=== PATIENT | female | born 1945 | race Caucasian/White ===

== ENCOUNTER 2022-05-17 11:21 | Emergency (ER) | payer MEDICARE, SELFPAY ==
[2022-05-17 11:23] VITALS: BP 124/73; PULSE 77; RESP 16; TEMP 36.6; O2SAT 95; BMI 20.9
--- NOTE | 2022-05-17 11:38 | EKG12_ITS ---
Test Reason : Alt loc Blood Pressure : / mmHG Vent. Rate : 069 BPM Atrial Rate : 069 BPM P-R Int : 116 ms QRS Dur : 060 ms QT Int : 410 ms P-R-T Axes : 082 -10 243 degrees QTc Int : 439 ms Normal sinus rhythm ST & T wave abnormality, consider inferolateral ischemia Abnormal ECG Confirmed by LISA LYNN, ALEXY ([id number]), assistant editor JUAQUIN COLÓN ([id number]) on 05/18/2022 11:07:17 AM Referred By: Katerine Confirmed By:ALEXY GONZALEZ MD
--- NOTE | 2022-05-17 11:38 | CT_ITS ---
STUDY: CT BRAIN WITHOUT CONTRAST REASON FOR EXAM: Female, 76 years old. Mental status change. History of Parkinson''s. RADIATION DOSAGE (If Supplied By Facility): CTDIvol = ( 44.99 ) mGy, DLP = ( 762.36 ) mGycm TECHNIQUE: Transaxial CT imaging of the brain was performed without administration of intravenous contrast material. Individualized dose optimization techniques were used for this CT. COMPARISON: No relevant priors. FINDINGS: Normal soft tissue structures. Normal calvarium. There is mild cerebral atrophy with widening of the extra-axial spaces and ventricular dilatation. There are areas of decreased attenuation within the white matter tracts of the supratentorial brain, consistent with microvascular disease changes. Metallic electrodes are seen in the thalami bilaterally. Normal brainstem. Normal cerebellum. There is no intracranial hemorrhage. There are no findings of an acute ischemic infarction. Atherosclerotic calcification of the vertebral arteries and cavernous portions of the internal carotid arteries bilaterally. Normal visualized paranasal sinuses. CT/Brain/Head without Contrast IMPRESSION: Chronic involutional changes of the brain. Metallic electrodes are seen within the thalami bilaterally. Electronically Signed: Lorne Castellon MD at 12:33 EDT ,
--- NOTE | 2022-05-17 11:40 | EDS_ITS ---
HPI History of Present Illness Chief Complaint: Alt LOC Detail of Chief Complaint: Altered level of consciousness prior to arrival in the department Informant: patient and spouse/S.O. Narrative Narrative: Patient presents to the emergency department via EMS from home. Patient woke up this morning and helped her get dressed after going to the bathroom. He brought her downstairs and she did not want to eat or take her medications because she felt nauseated and felt like it would come back up. Patient then fell asleep in a chair. attempted to wake the patient up later and could not wake her up. Patient apparently would attempt to open her eyes and then would just mumble. Patient's talked to their daughter who is an RN and who recommended that patient be evaluated in the emergency department. Patient has history of Parkinson's and history of confusion. Patient has history of frequent falls. Patient has been complaining of abdominal pain for several weeks. Patient currently states that she has a full bladder and has some abdominal discomfort related to that. She denies dysuria. Patient denies fevers. She denies chest or head pain. Prior similar symptoms: No PFSH PFS Medical History (Updated 05/17/22 @ 13:[address] Becky Cai, DO) Parkinson disease Home Medications atorvastatin 80 mg tablet 80 mg PO DAILY 05/17/22 [History Last Taken Unknown] fluoxetine 20 mg tablet 20 mg PO DAILY 05/17/22 [History Last Taken Unknown] levothyroxine 50 mcg tablet 50 mcg PO DAILY 05/17/22 [History Last Taken Unknown] pantoprazole 20 mg tablet,delayed release 20 mg PO DAILY 05/17/22 [History Last Taken Unknown] rasagiline 1 mg tablet 1 mg PO DAILY 05/17/22 [History Last Taken Unknown] Allergy/AdvReac Type Severity Reaction Status Date / Time Unable to Assess Allergy Verified 05/17/22 12:20 Social History Smoking Status: Never smoker ROS ROS ED Review of Systems ROS Unobtainable: other Constitutional Constitutional ED: Reports lethargy; Denies chills, fever(s), sweats or weight loss Eyes Eyes: Denies blurry vision, change in vision or diplopia ENT ENT ED: Denies rhinorrhea or sore throat Cardiovascular Cardiovascular: Reports chest pain and racing heartbeat; Denies orthopnea Respiratory/Chest Respiratory/Chest: Reports dyspnea and dyspnea on exertion; Denies cough, orthopnea or sputum Gastrointestinal Gastrointestinal: Denies abdominal pain, diarrhea, nausea or vomiting Genitourinary Genitourinary ED: Denies dysuria, hematuria or urinary frequency Musculoskeletal Musculoskeletal: Denies arthralgias, back pain, myalgias or neck pain Integumentary Denies abscess, Abrasions or rash Neurologic Neurologic: Reports other Details: Confusion/mental status change ; Denies headache(s) or weakness Psychiatric Psychiatric: Denies anxiety, depression or suicidal thoughts Endocrine Endocrinology: Denies polydipsia, polyphagia or polyuria Hematologic/Lymphatic Hematologic/Lymphatic: Denies easy bleeding, easy bruising or lymphadenopathy Allergic/Immunologic Allergic/Immunologic ED: Denies mouth swelling, tongue swelling or urticaria EXAM Physical Exam Const Vital Signs: 05/17/22 11:23 Temperature 98 F Temperature Source Temporal Pulse Rate 77 Respiratory Rate 16 Blood Pressure 124/73 H Blood Pressure Mean 90 Pulse Ox 95 Oxygen Delivery Method Room Air Positive well nourished and well developed General Appearance ED: well developed and NAD HEENT Reports TM's clear and moist mucous membranes HEENT Narrative: No external evidence of trauma to the head. No facial droop. normocephalic and atraumatic; Negative for trauma or tenderness Tympanic Membrane ED: Yes TM's clear Eyes PERRL and EOMs intact bilaterally General Eye ED: Negative for pale conjunctiva or scleral icterus Neck no lymphadenopathy, supple and no JVD General: Negative for tenderness Chest Wall inspection of chest normal and palpation of chest normal Chest Narrative: Patient has a stimulator present in the right chest wall for her Parkinson's. Chest: Negative for tenderness Resp normal respiratory effort and clear to auscultation bilaterally Effort and Inspection: Negative for respiratory distress or pain with movement Auscultation: Negative for rhonchi, wheezes or diminished lung sounds Cardio regular rate, regular rhythm, S1 normal heart sound, S2 normal heart sound and no murmurs Peripheral Pulses: pulses 2+ throughout GI normal to inspection, nondistended, normoactive bowel sounds, soft to palpation, non-tender, non-distended and no masses Back/Spine no CVA tenderness and no thoracic nor lumbar tenderness Extremity normal to inspection General Extremety ED: Negative for edema General Extremity: Negative for edema Neuro oriented x3, CN's II-XII intact bilaterally, no sensory deficits noted and gait normal Neuro Narrative: Patient is alert to person and place. Patient has some recollection of hearing the attempting speak with her but states she was just having a hard time answering. No focal deficits noted on exam. She does have some slight subtle weakness to the left lower extremity which is chronic per and patient. Sensorium / Orientation: awake, alert, oriented to person, oriented to place and oriented to time Motor Exam: strength 5/5 throughout and strength abnormal Psych mental status grossly normal Skin no rashes or lesions noted and no wounds MDM MDM MDM Narrative Medical decision making narrative: IV line established on arrival. Urinalysis obtained was unremarkable. Lab work unremarkable. CT scan of the brain without contrast showed nothing acute. CT scan of the abdomen pelvis showed diverticulosis otherwise nothing acute. At this point patient is back to her baseline. Etiology of her symptoms unclear but now resolved. Patient advised to follow-up with primary care physician in 3 to 5 days. Advised to bring her back if symptoms should recur or condition should change in any way. Lab Data Attestation: I reviewed the patient's lab results. Labs: Laboratory Results - last 24 hr 05/17/22 05/17/22 05/17/22 11:29 11:29 11:45 WBC 6.9 RBC 4.41 Hgb 13.6 Hct 39.9 MCV 90.5 MCH 30.8 MCHC 34.1 RDW Std Deviation 43.1 RDW Coeff of Su 13.1 Plt Count 327 MPV 8.8 Immature Gran % (Auto) 0.400 Neut % (Auto) 64.4 Lymph % (Auto) 23.3 [place] % (Auto) 8.7 Eos % (Auto) 2.6 Baso % (Auto) 0.6 Absolute Neuts (auto) 4.4 Absolute Lymphs (auto) 1.60 Nucleated RBC % 0 Sodium 139 Potassium 3.9 Chloride 104 Carbon Dioxide 30.0 Anion Gap 5 BUN 11 Creatinine 0.52 L Estim Creat Clear Calc 34.38 Est GFR (MDRD) Af Amer 148 Est GFR (MDRD) Non-Af 122 BUN/Creatinine Ratio 21.2 H Glucose 117 H Calcium 8.2 L Troponin I High Sens 4 Urine Color Yellow Urine Clarity Sl. Cloudy Urine pH 8.0 Ur Specific [place] 1.010 Urine Protein Negative Urine Glucose (UA) Normal Urine Ketones Negative Urine Occult Blood Negative Urine Nitrite Negative Urine Bilirubin Negative Urine Urobilinogen Normal Ur Leukocyte Esterase 25 H Urine RBC 0 SEEN Urine WBC 0-5 SEEN Ur Squamous Epith Cells 0-5 SEEN Urine Bacteria 0 SEEN Urine Mucus 0 SEEN Radiography Diagnostic Testing: Clinical Impression(s) from Imaging Studies Brain CT 05/17/22 11:38 IMPRESSION: Chronic involutional changes of the brain. Metallic electrodes are seen within the thalami bilaterally. Electronically Signed: Lorne Castellon MD at 12:33 EDT , Abdomen/Pelvis CT 05/17/22 11:40 IMPRESSION: Sigmoid diverticulosis. 5.5 mm nonobstructive calculus in the mid lower pole calyx of the right kidney. Findings suggestive of scarring at both lung bases. Electronically Signed: Lorne Castellon MD at 12:26 EDT , EKG Initial EKG: Attestation: I personally reviewed and interpreted this EKG as follows: Comments: Sinus rhythm with a ventricular rate of 69 bpm with no acute ST segment changes noted. Discharge Plan Triage Chief Complaint: Alt LOC ED Provider: Becky Cai Dx/Rx/DC Orders Clinical Impression: Altered mental status Instructions: ED ALOC Prescriptions: No Action atorvastatin 80 mg Tablet 80 mg PO DAILY pantoprazole 20 mg Tablet,Delayed Release (Dr/Ec) 20 mg PO DAILY levothyroxine 50 mcg Tablet 50 mcg PO DAILY fluoxetine 20 mg Tablet 20 mg PO DAILY rasagiline 1 mg Tablet 1 mg PO DAILY Primary Care Provider: DEN ALEXANDER Referrals: [facility],Out of [NON-STAFF] - 3-5 Days Disposition Disposition: Home, Self Care
--- NOTE | 2022-05-17 11:40 | CT_ITS ---
STUDY: CT ABDOMEN AND PELVIS WITHOUT CONTRAST REASON FOR EXAM: Female, 76 years old. Abdominal pain RADIATION DOSAGE (If Supplied By Facility): CTDIvol = ( 6.45 ) mGy, DLP = ( 307.84 ) mGycm TECHNIQUE: Transaxial images were obtained from the dome of the diaphragm to the symphysis pubis without oral contrast, and without intravenous contrast. Sagittal and coronal images were reconstructed. Individualized dose optimization techniques were used for this CT. COMPARISON: None. FINDINGS: Increased interstitial markings at the lung bases with areas of confluence suggestive of bibasilar scarring. The visualized portions of the heart are within normal limits. Normal liver. Normal gallbladder and extrahepatic biliary system. Normal spleen. Normal pancreas. Normal bilateral adrenal glands. There is a 5.5 mm nonobstructive calculus in the mid lower pole calyx of the right kidney. Normal left kidney. There is a small hiatal hernia. Normal small intestine. There are multiple colonic diverticula consistent with diverticulosis. The appendix is visualized and appears normal. There is scattered atherosclerotic calcification of the abdominal aorta, without a demonstrated aneurysm. Normal inferior vena cava. Normal retroperitoneum. Normal urinary bladder. Calcified fibroid uterus. Normal abdominal wall. There are diffuse degenerative changes of the visualized lumbar spine. Loss of height of the L5 vertebra. CT/Abdomen/Pelvis without Cont IMPRESSION: Sigmoid diverticulosis. 5.5 mm nonobstructive calculus in the mid lower pole calyx of the right kidney. Findings suggestive of scarring at both lung bases. Electronically Signed: Lorne Castellon MD at 12:26 EDT ,
[2022-05-17 11:50] LABS: Bacteria 0 SEEN /hpf (None Seen); Mucous, Urine 0 SEEN /hpf (<or=2+); Red Blood Cells-Urine 0 SEEN /hpf (0-5)
[2022-05-17 11:57] LABS: Absolute Neutrophil Count 4.4 X10^3/uL (2.0-7.7); Basophil# 0.04 X10^3/uL; Basophil% 0.6 % (0-1); Eosinophil# 0.18 X10^3/uL; Eosinophils% 2.6 % (0-5); Hematocrit 39.9 % (37-47); Hemoglobin 13.6 g/dL (12.0-15.0); Lymphocyte % 23.3 % (19-41); Mean Corp Hgb Conc 34.1 g/dL (32-36); Mean Corpuscular Hgb 30.8 pg (27.0-32.0); Mean Corpuscular Volume 90.5 fL (81-99); Mean Platelet Vol. 8.8 fl (6.2-12.0); Monocyte% 8.7 % (0-10); NRBC Flagged by Analyzer 0 % (0-5); Neutrophil # 4.43 X10^3/uL (2.7-7.7); Neutrophil % 64.4 % (47-70); Platelet Count 327 K/mm3 (150-450); RBC Distribution Width CV 13.1 % (11.6-14.6); RBC Distribution Width SD 43.1 fl (35.1-43.9); Red Blood Count 4.41 M/mm3 (4.2-5.4); White Blood Count 6.9 K/mm3 (4.4-11.0)
[2022-05-17 11:59] LABS: Color, Urine Yellow (Yellow); Glucose, Dipstick Normal (Normal); Ketone-Dipstick Negative (Negative); Leukocyte Esterase-Dipstick 25 /ul (Negative); Nitrite-Dipstick Negative (Negative); Occult Blood-Urine Negative /ul (Negative); Protein-Dipstick Negative (Negative); Urine Bilirubin Dipstick Negative (Negative); Urine Clarity Sl. Cloudy (Clear); Urine Urobilinogen Normal (Normal)
[2022-05-17 12:12] LABS: Anion Gap 5 (5-15); BUN 11 mg/dL (7-18); BUN/Creat Ratio 21.2 RATIO (10-20); Calcium,Total 8.2 mg/dL (8.5-10.1); Chloride 104 mmol/L (98-107); Creatinine, Serum 0.52 mg/dL (0.55-1.02); EST Glomerular Filtration Rate 122 mL/min (>60); Est Glom Filt Rate - Afr Amer 148 mL/min (>60); Estimated Creatinine Clearance 34.38 ml/min; Glucose 117 mg/dL (74-106); Potassium 3.9 mmol/L (3.5-5.1); Sodium Level 139 mmol/L (136-145); Troponin-I HS 4 pg/mL (3.0-54.0)
[2022-05-17 12:15] LABS: Squamous Epithelial Cells - UA 0-5 SEEN /hpf (5-10); White Blood Cells 0-5 SEEN /hpf (0-5)
[2022-05-17] MEDS: 0.9% Normal Saline 1,000 ML 150 ML IV (12:21)
[2022-05-17 13:15] VITALS: BP 127/58; PULSE 73; RESP 16; O2SAT 96
== END 2022-05-17 13:17 | disposition home or self-care (01) ==
PROVIDERS: Emergency Provider Emergency Medicine; Visit Provider Emergency Medicine
DX: R41.82 Altered mental status, unspecified (principal); Z79.899 Other long term (current) drug therapy
CPT/HCPCS: 70450; 74176; 80048; 81001; 84484; 85025; 93005; 99285; A4216

== ENCOUNTER 2022-06-07 14:10 | Observation (INO) | payer MEDICARE, SELFPAY ==
[2022-06-07] VITALS (7 sets, daily range): BP systolic 109–162; BP diastolic 61–86; PULSE 43–85; RESP 16–18; TEMP 36.6–36.8; O2SAT 94–100; BMI 20.7
--- NOTE | 2022-06-07 14:13 | CT_ITS ---
INDICATION: injury. fall. patient has parkinson''s with brain stimulators EXAMINATION: CT BRAIN - CT Head or Brain W/O Contrast Injection TECHNIQUE: Multiple axial images were obtained of the head without intravenous contrast. A radiation dose optimization technique was used for this scan. IV Contrast dosage and agent: None. COMPARISON: None. FINDINGS: Deep brain stimulation leads visualized superimposed over bilateral thalami, no evidence of areas of low attenuation surrounding the leads. No evidence of parenchymal hemorrhages or contusions. No evidence of intra or extra-axial fluid collection is seen. Scattered areas of low attenuation visualized in the periventricular and subcortical white matter consistent with some mild chronic microvascular disease. Prominence of the ventricles and sulci visualized suggestive of chronic atrophic brain changes. The basilar cisterns are unremarkable for the patient''s age. No evidence of intracranial mass or mass effect, no evidence of midline shift is seen. Unremarkable aeration of the paranasal sinuses is seen. Unremarkable aeration of the mastoid air cells. No discrete lytic or blastic abnormalities. Both globes, extraocular muscles, optic nerves and retrobulbar fat appear unremarkable. CT/Brain/Head without Contrast IMPRESSION: No evidence of acute intracranial pathology is seen. Electronically Signed: Anselmo West MD at 15:09 EDT Reading Location ID and State: [facility] / [place] Tel , Service support ,
--- NOTE | 2022-06-07 14:14 | EX.ED.GENINJ ---
HPI History of Present Illness Chief Complaint: Fall Informant: patient Narrative Narrative: 76-year-old female presenting to the emergency room following a fall at home. Patient states she has Parkinson's and was rushing to the back window when she fell. She does not know what she hit but she notes she did not lose consciousness. She was able to ambulate at the scene. She notes a large laceration to the left frontal parietal scalp. Bleeding was controlled per EMS. Unknown last tetanus. She denies any neck pain but was placed in a c-collar by EMS. Patient denies any arm or leg symptoms. She does note that she has a DBS that was placed [address] Albert Qureshi at [facility] She is not on blood thinners. Tetanus Immunization: Unknown [facility] Medical History (Updated 06/07/22 @ 15:[address] Song Kim DO) GERD (gastroesophageal reflux disease) Hypercholesterolemia Parkinson disease Home Medications atorvastatin 80 mg tablet 80 mg PO DAILY 05/17/22 [History Last Taken Unknown] fluoxetine 20 mg tablet 40 mg PO DAILY 05/17/22 [History Last Taken Unknown] levothyroxine 50 mcg tablet 50 mcg PO DAILY 05/17/22 [History Last Taken Unknown] pantoprazole 20 mg tablet,delayed release 20 mg PO DAILY 05/17/22 [History Last Taken Unknown] rasagiline 1 mg tablet 1 mg PO DAILY 05/17/22 [History Last Taken Unknown] calcium 600 mg PO/SL DAILY 06/07/22 [History Last Taken Unknown] ibandronate 150 mg tablet tab PO 06/07/22 [History Last Taken Unknown] Allergy/AdvReac Type Severity Reaction Status Date / Time No Known Allergies Allergy Verified 06/07/22 14:24 Surgical History (Updated 06/07/22 @ 14:[address] Song Kim DO) S/P deep brain stimulator placement Social History (Updated 06/07/22 @ 14:[address] Song Kim DO) Smoking Status: Former smoker substance use type: does not use ROS ROS ED Constitutional Constitutional ED: Denies chills or weight loss Eyes Eyes: Denies change in vision or diplopia ENT ENT ED: Denies ear pain, rhinorrhea or sore throat Cardiovascular Cardiovascular: Denies chest pain, orthopnea, palpitations or racing heartbeat Respiratory/Chest Respiratory/Chest: Denies cough, dyspnea or orthopnea Gastrointestinal Gastrointestinal: Denies abdominal pain, diarrhea, nausea or vomiting Genitourinary Genitourinary ED: Denies dysuria, hematuria or urinary frequency Musculoskeletal Musculoskeletal: Denies arthralgias, myalgias or neck pain Integumentary Reports other Details: Scalp laceration ; Denies abscess or rash Neurologic Neurologic: Reports headache(s); Denies weakness Psychiatric Psychiatric: Denies anxiety, depression, suicidal ideation or suicidal thoughts Endocrine Endocrinology: Denies polydipsia, polyphagia or polyuria Allergic/Immunologic Allergic/Immunologic ED: Denies mouth swelling, tongue swelling or urticaria EXAM Physical Exam Const Vital Signs: 06/07/22 14:08 06/07/22 14:09 06/07/22 14:09 Temperature 98.2 F 98.2 F 98.2 F Temperature Source Oral Oral Pulse Rate 85 82 Respiratory Rate 18 18 Respiratory Effort Normal Non-Labored Respiratory Depth Normal Respiratory Pattern Normal Blood Pressure 121/61 H Blood Pressure Mean 81 Pulse Ox 94 95 Oxygen Delivery Method Room Air Room Air Room Air 06/07/22 15:54 06/07/22 17:37 06/07/22 21:43 Temperature 97.9 F Temperature Source Oral Pulse Rate 76 76 71 Respiratory Rate 18 18 18 Respiratory Effort Respiratory Depth Respiratory Pattern Blood Pressure 109/74 123/78 H 162/86 H Blood Pressure Mean 85 93 111 Pulse Ox 94 94 100 Oxygen Delivery Method Room Air Room Air Room Air 06/07/22 22:44 Temperature Temperature Source Pulse Rate 43 L Respiratory Rate 16 Respiratory Effort Respiratory Depth Respiratory Pattern Blood Pressure 145/82 H Blood Pressure Mean 103 Pulse Ox 94 Oxygen Delivery Method Room Air Positive well nourished and well developed General Appearance ED: well developed HEENT Reports normocephalic and moist mucous membranes HEENT Narrative: There is a 5 cm gaping full-thickness scalp laceration located in the left frontal parietal scalp. There is no active bleeding Eyes PERRL and EOMs intact bilaterally Neck full ROM, no lymphadenopathy, supple and no JVD Neck Narrative: No tenderness to palpation Resp normal respiratory effort and clear to auscultation bilaterally Cardio regular rate, regular rhythm and no murmurs GI normal to inspection, nondistended, normoactive bowel sounds and non-tender Palpation: soft Back/Spine no CVA tenderness and normal ROM Extremity normal to inspection General Extremety ED: Negative for edema General Extremity: Negative for edema Neuro oriented x3 and CN's II-XII intact bilaterally Sensorium / Orientation: alert Motor Exam: strength 5/5 throughout Psych mental status grossly normal Mood & Affect: Negative for depressed or tearful Skin no rashes or lesions noted and no wounds MDM MDM MDM Narrative Medical decision making narrative: Wound was locally anesthetized using 1% lidocaine washed with Shur-Clens and irrigated with sterile saline of approximately 250 cc. Wound was then explored. There is approximately 1 cm of DBM wire that I can see through the wound. Does not appear broken. Wound was washed with an additional 250 cc and then closed using seven 3-0 Ethilon sutures. Wound edges well approximated bleeding controlled. CT of the brain was obtained. This demonstrated no fracture or intracranial hemorrhage. I spoke with on-call neurosurgery at [facility]. They were comfortable with us sewing the wound and starting her on Ancef. They would like her transferred to [facility]. Patient is now been in the emergency room for 9 hours. I am told that she is first on the list to [facility]. Unfortunately I am also being told that she will not get a bed for the rest of the night. They do want her at [facility] because that is where her neurosurgeon is at. I spoke with our hospitalist who will admit the patient. We are going to continue antibiotics while we wait for bed assignment Lab Data Attestation: I reviewed the patient's lab results. Labs: Laboratory Results - last 24 hr 06/07/22 06/07/22 15:30 15:30 WBC 7.0 RBC 4.42 Hgb 13.5 Hct 40.3 MCV 91.2 MCH 30.5 MCHC 33.5 RDW Std Deviation 45.4 H RDW Coeff of Su 13.5 Plt Count 332 MPV 8.9 Immature Gran % (Auto) 0.300 Neut % (Auto) 65.0 Lymph % (Auto) 21.3 [place] % (Auto) 10.8 H Eos % (Auto) 2.0 Baso % (Auto) 0.6 Absolute Neuts (auto) 4.6 Absolute Lymphs (auto) 1.50 Nucleated RBC % 0 Sodium 137 Potassium 3.9 Chloride 106 Carbon Dioxide 29.0 Anion Gap 2 L BUN 14 Creatinine 0.57 Estim Creat Clear Calc 34.38 Est GFR (MDRD) Af Amer 133 Est GFR (MDRD) Non-Af 110 BUN/Creatinine Ratio 24.7 H Glucose 122 H Calcium 8.6 Radiography Diagnostic Testing: Clinical Impression(s) from Imaging Studies Brain CT 06/07/22 14:13 IMPRESSION: No evidence of acute intracranial pathology is seen. Electronically Signed: Anselmo West MD at 15:09 EDT Reading Location ID and State: [facility] / [place] Tel , Service support , Discharge Plan Triage Chief Complaint: Fall ED Provider: Song Kim Dx/Rx/DC Orders Clinical Impression: Laceration of scalp, Fall, Parkinson's disease, S/P deep brain stimulator placement, Mechanical complication of deep brain stimulator Prescriptions: No Action atorvastatin 80 mg Tablet 80 mg PO DAILY pantoprazole 20 mg Tablet,Delayed Release (Dr/Ec) 20 mg PO DAILY levothyroxine 50 mcg Tablet 50 mcg PO DAILY fluoxetine 20 mg Tablet 40 mg PO DAILY rasagiline 1 mg Tablet 1 mg PO DAILY ibandronate 150 mg tablet PO calcium 600 mg PO/SL DAILY Primary Care Provider: DEN ALEXANDER Referrals: DEN ALEXANDER [Other] Disposition Disposition: Acute Care Hospital Discharge Location: [facility]
[2022-06-07] MEDS: Diphth,Pertuss(Acell),Tet Vac 0.5 ML Vial IM (14:32)
[2022-06-07] MEDS: Lidocaine 1% (20 ml mdv) 20 ML Vial INFILT (15:00)
[2022-06-07] MEDS: Cefazolin 1 GM/50 ML BAG IV ×2 (15:34→22:40)
[2022-06-07 15:49] LABS: Absolute Neutrophil Count 4.6 X10^3/uL (2.0-7.7); Basophil# 0.04 X10^3/uL; Basophil% 0.6 % (0-1); Eosinophil# 0.14 X10^3/uL; Hematocrit 40.3 % (37-47); Hemoglobin 13.5 g/dL (12.0-15.0); Lymphocyte % 21.3 % (19-41); Mean Corp Hgb Conc 33.5 g/dL (32-36); Mean Corpuscular Hgb 30.5 pg (27.0-32.0); Mean Corpuscular Volume 91.2 fL (81-99); Mean Platelet Vol. 8.9 fl (6.2-12.0); Monocyte# 0.76 X10^3/uL; Monocyte% 10.8 % (0-10); NRBC Flagged by Analyzer 0 % (0-5); Neutrophil # 4.57 X10^3/uL (2.7-7.7); Platelet Count 332 K/mm3 (150-450); RBC Distribution Width CV 13.5 % (11.6-14.6); RBC Distribution Width SD 45.4 fl (35.1-43.9); Red Blood Count 4.42 M/mm3 (4.2-5.4)
[2022-06-07 16:06] LABS: Anion Gap 2 (5-15); BUN 14 mg/dL (7-18); BUN/Creat Ratio 24.7 RATIO (10-20); Calcium,Total 8.6 mg/dL (8.5-10.1); Chloride 106 mmol/L (98-107); Creatinine, Serum 0.57 mg/dL (0.55-1.02); EST Glomerular Filtration Rate 110 mL/min (>60); Est Glom Filt Rate - Afr Amer 133 mL/min (>60); Estimated Creatinine Clearance 34.38 ml/min; Glucose 122 mg/dL (74-106); Potassium 3.9 mmol/L (3.5-5.1); Sodium Level 137 mmol/L (136-145)
--- NOTE | 2022-06-07 23:08 | PCM.HP.STD ---
HPI - General General Date of Admission: 06/07/22 Date of Service: 06/07/22 Chief Complaint: Fall, head laceration, DBS exposure - 1 day Awaiting bed and transferred to the [facility] to see neurosurgery HPI Narrative EBONIE LIM, is a 76 F who presents with the above. Patient has history of Parkinson's disease status post DBS implant, for those with Dr. Aguila Qureshi in the [facility], history of recurrent falls who comes in after another episode of a fall and sustained laceration of the head. Patient stated that she stood up and was rushing to the back window when she fell. Usually, her will have her sitting in a chair while she goes out tomorrow. She notes that she did not lose consciousness. She noted a large laceration to the left frontoparietal scalp. This was sutured in the emergency room. Patient's DBS however was showing when the laceration was sutured. Brain CT showed no acute intracranial pathology. Patient has been accepted to the [facility] and is a first on the line but however she has been in the ED for more than 9 hours. She has received IV cefazolin. Hospital medicine has been asked to admit the patient pending getting a bed in the [facility]. I did discuss strongly with the patient that we do not have neurosurgery coverage, specifically for DBS. She voices understanding, knows that this admission is pending bed availability in the [facility]. [facility] Medical History GERD (gastroesophageal reflux disease) Hypercholesterolemia Parkinson disease Home Medications atorvastatin 80 mg tablet 80 mg PO DAILY 05/17/22 [History Last Taken Unknown] fluoxetine 20 mg tablet 40 mg PO DAILY 05/17/22 [History Last Taken Unknown] levothyroxine 50 mcg tablet 50 mcg PO DAILY 05/17/22 [History Last Taken Unknown] pantoprazole 20 mg tablet,delayed release 20 mg PO DAILY 05/17/22 [History Last Taken Unknown] rasagiline 1 mg tablet 1 mg PO DAILY 05/17/22 [History Last Taken Unknown] calcium 600 mg PO/SL DAILY 06/07/22 [History Last Taken Unknown] ibandronate 150 mg tablet tab PO 06/07/22 [History Last Taken Unknown] Allergy/AdvReac Type Severity Reaction Status Date / Time No Known Allergies Allergy Verified 06/07/22 14:24 no significant family history Surgical History S/P deep brain stimulator placement Social History (Updated 06/08/22 @ 00:[address] Lindsay Agustin MD) household members: spouse Smoking Status: Former smoker alcohol intake: never substance use type: does not use Vital Signs Vital Signs Vital Signs: 06/07/22 14:08 06/07/22 14:09 06/07/22 14:09 Temperature 98.2 F 98.2 F 98.2 F Temperature Source Oral Oral Pulse Rate 85 82 Respiratory Rate 18 18 Respiratory Effort Normal Non-Labored Respiratory Depth Normal Respiratory Pattern Normal Blood Pressure 121/61 H Blood Pressure Mean 81 Pulse Ox 94 95 Oxygen Delivery Method Room Air Room Air Room Air 06/07/22 15:54 06/07/22 17:37 06/07/22 21:43 Temperature 97.9 F Temperature Source Oral Pulse Rate 76 76 71 Respiratory Rate 18 18 18 Respiratory Effort Respiratory Depth Respiratory Pattern Blood Pressure 109/74 123/78 H 162/86 H Blood Pressure Mean 85 93 111 Pulse Ox 94 94 100 Oxygen Delivery Method Room Air Room Air Room Air 06/07/22 22:44 Temperature Temperature Source Pulse Rate 43 L Respiratory Rate 16 Respiratory Effort Respiratory Depth Respiratory Pattern Blood Pressure 145/82 H Blood Pressure Mean 103 Pulse Ox 94 Oxygen Delivery Method Room Air Weight Weight: 48.2 kg Body Mass Index (BMI) 20.7 Physical Exam Narrative Physical exam: General: Alert, Oriented x3, Cooperative, No apparent distress, appears frail HEENT: Sutures over deep frontal temporal region, clean, tender to Oral: Moist Mucosa Neck: Supple Lungs: Clear to auscultation Cardiovascular: HS I+II, regular, no murmurs Abdomen: Bowel Sounds Present, Soft, Non Tender Extremities: No edema Skin: No rashes, No breakdown Neurological: Grossly intact Psych/Mental Status: Appropriate Results Lab / Micro Data Result Diagrams: 06/07/22 15:30 06/07/22 15:30 Labs: Laboratory Results - last 24 hr 06/07/22 15:30: WBC 7.0, RBC 4.42, Hgb 13.5, Hct 40.3, MCV 91.2, MCH 30.5, MCHC 33.5, RDW Std Deviation 45.4 H, RDW Coeff of Su 13.5, Plt Count 332, MPV 8.9, Immature Gran % (Auto) 0.300, Neut % (Auto) 65.0, Lymph % (Auto) 21.3, Arthur % (Auto) 10.8 H, Eos % (Auto) 2.0, Baso % (Auto) 0.6, Absolute Neuts (auto) 4.6, Absolute Lymphs (auto) 1.50, Nucleated RBC % 0 06/07/22 15:30: Sodium 137, Potassium 3.9, Chloride 106, Carbon Dioxide 29.0, Anion Gap 2 L, BUN 14, Creatinine 0.57, Estim Creat Clear Calc 34.38, Est GFR (MDRD) Af Amer 133, Est GFR (MDRD) Non-Af 110, BUN/Creatinine Ratio 24.7 H, Glucose 122 H, Calcium 8.6 Micro: Microbiology 06/07/22 15:25 Nasal Secretion SARS-CoV-2 Antigen (Rapid) - Final Radiology Impression Brain CT 06/07/22 14:13 IMPRESSION: No evidence of acute intracranial pathology is seen. Electronically Signed: Anselmo West MD at 15:09 EDT , Assessment & Plan Assessment/Plan (1) Laceration of scalp: (2) Fall: PLAN: Plan 1. Fall, laceration, DBS exposure, status post suturing of laceration Patient with history of recurrent falls from Parkinson's disease Patient is being admitted as she stated more than 9 hours in the emergency room She has been accepted into the [facility] neurosurgery department pending bed availability Patient has voiced understanding knowing that we have no neurosurgery coverage specifically for DBS She has received IV ceftriaxone prophylactically in the ED We will admit under observation to the MedSurg floor, will broaden antibiotics coverage to IV vancomycin and Zosyn Gentle IV fluids, repeat blood work in a.m., follow-up with [facility] transfer line 2. Parkinson's disease status post DBS, continue on rasagiline 3. Hyperlipidemia, continue statin 4. GERD, continue PPI 5. Hypothyroidism, continue Synthroid 6. Depression, continue fluoxetine 7. DVT PPx- SCDs Charges/Coding Visit Charges OBSV E&M: 20849 Initial observation care L3
[2022-06-08 01:31] VITALS: BMI 20.1
[2022-06-08 01:51] VITALS: BP 122/75; PULSE 79; RESP 18; TEMP 36.4; O2SAT 92
--- NOTE | 2022-06-08 01:52 | PCM.RX.CS ---
Consult Pharmacy has been consulted to manage selected antiobiotic: Vancomycin Type of Consult: New start Suspected Infection: Other Labs: Sodium 137 mmol/L (136-145) 06/07/22 15:30 Potassium 3.9 mmol/L (3.5-5.1) 06/07/22 15:30 Chloride 106 mmol/L (98-107) 06/07/22 15:30 Carbon Dioxide 29.0 mmol/L (21.0-32.0) 06/07/22 15:30 Anion Gap 2 (5-15) L 06/07/22 15:30 BUN 14 mg/dL (7-18) 06/07/22 15:30 Creatinine 0.57 mg/dL (0.55-1.02) 06/07/22 15:30 Est GFR (MDRD) Af Amer 133 mL/min (>60) 06/07/22 15:30 Est GFR (MDRD) Non-Af 110 mL/min (>60) 06/07/22 15:30 BUN/Creatinine Ratio 24.7 RATIO (10-20) H 06/07/22 15:30 Glucose 122 mg/dL (74-106) H 06/07/22 15:30 Microbiology: Microbiology 06/07/22 15:25 Nasal Secretion SARS-CoV-2 Antigen (Rapid) - Final Goal Trough: 15-20 mcg/mL Pharmacy Plan for Drug Dosing: NEW START IV VANCOMYCIN Consulting Physician: Dr. Agustin Indication: Infection prophylaxis Goal Trough: 15-20 SrCr: 0.57 CrCl: 34 mL/min Comments: A standard 15mg/kg initial dose was entered- however; this dose is the same as the scheduled dose. Due to this, will not give 750mg IV x1, will just go ahead and start scheduled dosing. Vancomcyin Dose: Vancomycin 750mg IV Q24hr to start 06/08/22 @0300 Pending Level: 06/10/22 @0230, prior to 3rd total dose per protocol Pharmacy Service will continue to monitor and adjust dosing as required.
[2022-06-08] MEDS: 0.9% Normal Saline 1,000 ML 100 ML IV (02:07)
[2022-06-08] MEDS: 0.9% Saline Lock 10 ML Syringe IV (02:08)
[2022-06-08] MEDS: Levothyroxine 50 MCG Tablet PO (06:04)
[2022-06-08 06:19] LABS: Absolute Lymphocyte Count 1.66 X10^3/uL (0.83-4.51); Absolute Neutrophil Count 6.4 X10^3/uL (2.0-7.7); Basophil# 0.03 X10^3/uL; Basophil% 0.3 % (0-1); Eosinophil# 0.06 X10^3/uL; Eosinophils% 0.7 % (0-5); Hematocrit 40.2 % (37-47); Hemoglobin 13.2 g/dL (12.0-15.0); Lymphocyte # 1.66 X10^3/ul (0.83-4.51); Lymphocyte % 18.7 % (19-41); Mean Corp Hgb Conc 32.8 g/dL (32-36); Mean Corpuscular Hgb 30.1 pg (27.0-32.0); Mean Corpuscular Volume 91.8 fL (81-99); Mean Platelet Vol. 9.1 fl (6.2-12.0); Monocyte# 0.68 X10^3/uL; Monocyte% 7.7 % (0-10); NRBC Flagged by Analyzer 0 % (0-5); Neutrophil # 6.43 X10^3/uL (2.7-7.7); Neutrophil % 72.4 % (47-70); Platelet Count 314 K/mm3 (150-450); RBC Distribution Width CV 13.3 % (11.6-14.6); RBC Distribution Width SD 44.7 fl (35.1-43.9); Red Blood Count 4.38 M/mm3 (4.2-5.4); White Blood Count 8.9 K/mm3 (4.4-11.0)
[2022-06-08 06:46] LABS: ALB/GLOB Ratio 0.9 RATIO (0.9-2.4); AST(SGOT) 21 U/L (15-37); Alanine Aminotransfer ALT/SGPT 22 U/L (13-56); Albumin, Serum 3.2 g/dL (3.2-5.0); Alkaline Phosphatase 129 U/L (45-117); Anion Gap 6 (5-15); BUN 8 mg/dL (7-18); BUN/Creat Ratio 13.2 RATIO (10-20); Calcium,Total 7.7 mg/dL (8.5-10.1); Chloride 105 mmol/L (98-107); Creatinine, Serum 0.61 mg/dL (0.55-1.02); EST Glomerular Filtration Rate 102 mL/min (>60); Est Glom Filt Rate - Afr Amer 123 mL/min (>60); Estimated Creatinine Clearance 34.38 ml/min; Globulin 3.6 g/dL (2.2-4.2); Glucose 179 mg/dL (74-106); Potassium 3.5 mmol/L (3.5-5.1); Protein, Total 6.8 g/dL (6.4-8.2); Sodium Level 137 mmol/L (136-145)
--- NOTE | 2022-06-08 07:29 | PN.HOSP_ITS ---
Subjective Subjective Has had falls chronically, despite best efforts by . Objective Data Objective Data Vital Signs: Vital Signs Temp Pulse Resp BP Pulse Ox O2 Del Method 36.4 C L 79 18 122/75 H 92 Room Air 06/08/22 01:51 06/08/22 01:51 06/08/22 01:51 06/08/22 01:51 06/08/22 01:51 06/08/22 02:02 Oxygen Delivery Method Room Air Weight: 46.765 kg Body Mass Index (BMI) 20.1 Intake & Output: Intake and Output for Last 24 Hours 06/06/22 06/07/22 06/08/22 23:59 23:59 23:59 Intake Total 100 / 100 501.67 / 501.67 Balance 100 / 100 501.67 / 501.67 Lab / Micro Data Result Diagrams: 06/08/22 05:45 06/08/22 05:45 Labs: Laboratory Results - last 24 hr 06/07/22 15:30: WBC 7.0, RBC 4.42, Hgb 13.5, Hct 40.3, MCV 91.2, MCH 30.5, MCHC 33.5, RDW Std Deviation 45.4 H, RDW Coeff of Su 13.5, Plt Count 332, MPV 8.9, Immature Gran % (Auto) 0.300, Neut % (Auto) 65.0, Lymph % (Auto) 21.3, [place] % (Auto) 10.8 H, Eos % (Auto) 2.0, Baso % (Auto) 0.6, Absolute Neuts (auto) 4.6, Absolute Lymphs (auto) 1.50, Nucleated RBC % 0 06/07/22 15:30: Sodium 137, Potassium 3.9, Chloride 106, Carbon Dioxide 29.0, Anion Gap 2 L, BUN 14, Creatinine 0.57, Estim Creat Clear Calc 34.38, Est GFR (MDRD) Af Amer 133, Est GFR (MDRD) Non-Af 110, BUN/Creatinine Ratio 24.7 H, Glucose 122 H, Calcium 8.6 06/08/22 05:45: WBC 8.9, RBC 4.38, Hgb 13.2, Hct 40.2, MCV 91.8, MCH 30.1, MCHC 32.8, RDW Std Deviation 44.7 H, RDW Coeff of Su 13.3, Plt Count 314, MPV 9.1, Immature Gran % (Auto) 0.200, Neut % (Auto) 72.4 H, Lymph % (Auto) 18.7 L, [place] % (Auto) 7.7, Eos % (Auto) 0.7, Baso % (Auto) 0.3, Absolute Neuts (auto) 6.4, Absolute Lymphs (auto) 1.66, Nucleated RBC % 0 06/08/22 05:45: Sodium 137, Potassium 3.5, Chloride 105, Carbon Dioxide 26.0, Anion Gap 6, BUN 8, Creatinine 0.61, Estim Creat Clear Calc 34.38, Est GFR (MDRD) Af Amer 123, Est GFR (MDRD) Non-Af 102, BUN/Creatinine Ratio 13.2, Glu cose 179 H, Calcium 7.7 L, Total Bilirubin 0.60, AST 21, ALT 22, Alkaline Phosphatase 129 H, Total Protein 6.8, Albumin 3.2, Globulin 3.6, [place] min/Globulin Ratio 0.9 Micro: Microbiology 06/07/22 15:25 Nasal Secretion SARS-CoV-2 Antigen (Rapid) - Final Radiography Diagnostic Testing: Radiology Impression Brain CT 06/07/22 14:13 IMPRESSION: No evidence of acute intracranial pathology is seen. Electronically Signed: Anselmo West MD at 15:09 EDT , Physical Exam Const alert and no apparent distress HEENT HEENT Narrative: laceration on left scalp stutured. no surrounding erythema. Resp normal respiratory effort, no retractions, no use of accessory muscles and clear to auscultation bilaterally Cardio regular rate, regular rhythm, S1 normal heart sound and S2 normal heart sound GI normal to inspection, nondistended, normoactive bowel sounds, soft to palpation, non-tender and non-distended Assessment & Plan Assessment/Plan (1) Laceration of scalp: PLAN: Patient with history of recurrent falls from Parkinson's disease Patient is being admitted as she stated more than 9 hours in the emergency room She has been accepted into the [facility] neurosurgery department pending bed availability Patient has voiced understanding knowing that we have no neurosurgery coverage specifically for DBS She has received IV ceftriaxone prophylactically in the ED We will admit under observation to the MedSur floor, will broaden antibiotics coverage to IV vancomycin and Zosyn Gentle IV fluids, repeat blood work in a.m., follow-up with [facility] transfer line Discussed with the patient's is unclear when patient be transferred. It looks like it may be several days it may be something where we just observe and if there is no clear evidence of infection that she could potentially be disch arged with oral antibiotics. (2) Fall: PLAN: PT OT evaluate and treat PLAN: Plan 3. Parkinson's disease status post DBS, continue on rasagiline 4. Hyperlipidemia, continue statin 5. GERD, continue PPI 6. Hypothyroidism, continue Synthroid 7. Depression, continue fluoxetine 8. DVT PPx- SCDs Charges/Coding Visit Charges OBSV E&M: 29620 Subsequent observation care L2
[2022-06-08 08:00] VITALS: BP 131/68; PULSE 86; RESP 16; TEMP 36.8; O2SAT 95
[2022-06-08] MEDS: Acetaminophen 325 MG Tablet 650 MG PO (10:26)
[2022-06-08 15:58] VITALS: BP 116/91; PULSE 78; RESP 16; TEMP 36.7; O2SAT 97
--- NOTE | 2022-06-08 16:10 | CASEMGMT ---
SHENA WOODS Assessment: Face to Face with pt for initial transition planning/care coordination assessment. SHENA WOODS introduced self and role at [facility], pt voices understanding and consents to assessment. Per , pt is confused and he will complete assessment. Care providers, pharmacy, and demographics verified/updated. Admitting Dx: fall, exposed DBS PCP:Anaya Specialists:Kiera neurosurgeon at [facility] Preferred Pharmacy: [facility] Insurance: [facility] Prescription Benefit: yes LW/HPOA: Pt has a LW/DPOA. Pt states he is the DPOA. He is aware this is not on file at [facility] and he may bring in to be scanned into the chart. LNOK: Anders Prado, Living Arrangements: Pt lives with in a two story house with 3 steps to enter with grab bars. Pt lives on main level. Pt assists with all ADL's and IADL's. Transportation: Pt transports pt to medical appts. DME/HHC/SNF: Pt has a FWW, transport w/c, handles on toilet as well as shower chair. Pt has had HHC in the past but is unsure of the name of the agency. Pt has no hx of being in a SNF. Current plan is for pt to be trf'd to [facility]. Pt states pt has fallen innumerable times since being in [facility]. He states he is having difficulty caring for pt at home. He would like to speak with his dtr regarding dc plan if pt is not trf'd to [facility]. SHENA WOODS to check back with patient tomorrow. Pt states no further concerns/needs. CM to follow. Advised pt to ask CM if any further question/concerns/needs arise, voices understanding. Pt Goal: TRF to [facility] Plan: TRF to [facility], will check back with patient tomorrow for plan in case trf will not happen d/t bed availability. SHENA WOODS in to discuss [employer] form with patient/pt . SHENA WOODS explained [employer] form, patient voiced understanding. Pt signed form and filed in chart. Pt/ provided with a copy of signed [employer] form. Patient/ had no further questions or concerns at this time.
--- NOTE | 2022-06-08 17:21 | NURSING ---
call placed to [facility] transfer center aware still awaiting for bed at this time.
[2022-06-08 21:10] VITALS: BP 137/86; PULSE 74; RESP 16; TEMP 36.6; O2SAT 95
[2022-06-08] MEDS: Atorvastatin Calcium 80 MG Tablet PO (21:17)
[2022-06-09 02:59] VITALS: BP 132/84; PULSE 71; RESP 16; TEMP 36.6; O2SAT 94
[2022-06-09] MEDS: Levothyroxine 50 MCG Tablet PO (06:32)
--- NOTE | 2022-06-09 07:07 | PCM.PN.HOSP ---
Subjective Subjective No events overnight. Objective Data Objective Data Vital Signs: Vital Signs Temp Pulse Resp BP Pulse Ox O2 Del Method 36.6 C 71 16 132/84 H 94 Room Air 06/09/22 02:59 06/09/22 02:59 06/09/22 02:59 06/09/22 02:59 06/09/22 02:59 06/09/22 02:59 Oxygen Delivery Method Room Air Weight: 46.765 kg Body Mass Index (BMI) 20.1 Intake & Output: Intake and Output for Last 24 Hours 06/07/22 06/08/22 06/09/22 23:59 23:59 23:59 Intake Total 100 / 100 2115.00 / 2115.00 615 / 615 Output Total 200 / 200 Balance 100 / 100 1915.00 / 1915.00 615 / 615 Lab / Micro Data Result Diagrams: 06/08/22 05:45 06/08/22 05:45 Micro: Microbiology 06/07/22 15:25 Nasal Secretion SARS-CoV-2 Antigen (Rapid) - Final Physical Exam Const alert and no apparent distress HEENT HEENT Narrative: incision on left upper scalp sutures, well-approximated, no erythema nor fluctuance. Resp normal respiratory effort and no retractions Psych affect normal Assessment & Plan Assessment/Plan (1) Laceration of scalp: PLAN: Patient with history of recurrent falls from Parkinson's disease Patient is being admitted as she stated more than 9 hours in the emergency room She has been accepted into the [facility] neurosurgery department pending bed availability Patient has voiced understanding knowing that we have no neurosurgery coverage specifically for DBS She has received IV ceftriaxone prophylactically in the ED We will admit under observation to the MedSur floor, will broaden antibiotics coverage to IV vancomycin and Zosyn Gentle IV fluids, repeat blood work in a.m., follow-up with [facility] transfer line Discussed with the patient's is unclear when patient be transferred. It looks like it may be several days it may be something where we just observe and if there is no clear evidence of infection that she could potentially be discharged with oral antibiotics. (2) Fall: PLAN: PT OT evaluate and treat PLAN: Plan 3. Parkinson's disease status post DBS, continue on rasagiline 4. Hyperlipidemia, continue statin 5. GERD, continue PPI 6. Hypothyroidism, continue Synthroid 7. Depression, continue fluoxetine 8. DVT PPx- SCDs Greater than 25 minutes of which greater than 50% of the time was discussing with the patient's about the transfer process and the fact that occurred anytime not it could be today or could be several more days but also discussing a plan if it does not look like any imminent transfer is feasible patient is otherwise doing well that we could discharge her with oral antibiotics I have her follow-up with primary care for suture removal Charges/Coding Visit Charges OBSV E&M: 82495 Subsequent observation care L2
[2022-06-09 08:36] VITALS: BP 113/69; PULSE 74; RESP 16; TEMP 36.7; O2SAT 94
[2022-06-09] MEDS: Acetaminophen 325 MG Tablet 650 MG PO ×2 (08:38→17:45)
[2022-06-09] MEDS: Calcium (Elemental) 500 MG Tablet PO (08:39)
[2022-06-09] MEDS: FLUoxetine 20 MG Capsule 40 MG PO (10:13)
[2022-06-09] MEDS: Pantoprazole Sodium 20 MG Tablet PO (10:14)
--- NOTE | 2022-06-09 14:11 | CASEMGMT ---
SHEAN WOODS in to pt room, pt is not present. TC to pt , he states that he has had a discussion with his dtr and they are requesting HHC for pt. States he will not be back in today prior to evening but will be in the morning. SHENA WOODS to check in with him and patient at that time.
[2022-06-09 14:58] VITALS: BP 133/81; PULSE 88; RESP 18; TEMP 36.6; O2SAT 97
[2022-06-09 21:00] VITALS: BP 104/68; PULSE 96; RESP 18; TEMP 36.7; O2SAT 96
[2022-06-09] MEDS: Atorvastatin Calcium 80 MG Tablet PO (22:08)
--- NOTE | 2022-06-10 01:34 | NURSING ---
RECEIVED CALL FROM [facility] FOR UPDATE ON PT. STATES THEY ARE STILL WAITING ON BED AVAILABILITY FOR HER TRANSFER.
[2022-06-10 02:51] VITALS: BP 135/78; PULSE 88; RESP 18; TEMP 36.8; O2SAT 92
[2022-06-10 03:29] LABS: Vancomycin, Trough Level 3.3 ug/mL (5.0-15.0)
--- NOTE | 2022-06-10 03:37 | PCM.RX.CS ---
Consult Pharmacy has been consulted to manage selected antiobiotic: Vancomycin Type of Consult: Follow-up Suspected Infection: Other Prior Doses of Antibiotics Received/Current Regimen: Medications Vancomycin HCl () 500 mg in 100 mls @ 100 mls/hr IV Q12H TAMEKA Vancomycin HCl 750 mg/ Sodium (Chloride) 265 mls @ 250 mls/hr IV Q24H TAMEKA Stop: 06/10/22 04:00 Last Admin: 06/10/22 02:49 Dose: 250 mls/hr Labs: Sodium 137 mmol/L (136-145) 06/08/22 05:45 Potassium 3.5 mmol/L (3.5-5.1) 06/08/22 05:45 Chloride 105 mmol/L (98-107) 06/08/22 05:45 Carbon Dioxide 26.0 mmol/L (21.0-32.0) 06/08/22 05:45 Anion Gap 6 (5-15) 06/08/22 05:45 BUN 8 mg/dL (7-18) 06/08/22 05:45 Creatinine 0.61 mg/dL (0.55-1.02) 06/08/22 05:45 Est GFR (MDRD) Af Amer 123 mL/min (>60) 06/08/22 05:45 Est GFR (MDRD) Non-Af 102 mL/min (>60) 06/08/22 05:45 BUN/Creatinine Ratio 13.2 RATIO (10-20) 06/08/22 05:45 Glucose 179 mg/dL (74-106) H 06/08/22 05:45 Vancomycin Trough 3.3 ug/mL (5.0-15.0) L 06/10/22 02:29 Microbiology: Microbiology 06/07/22 15:30 Blood Culture (Wb) - Right Wrist Blood Culture - Preliminary No growth in 48 hours. 06/07/22 15:30 Blood Culture (Wb) - Left Wrist Blood Culture - Preliminary No growth in 48 hours. 06/07/22 15:25 Nasal Secretion SARS-CoV-2 Antigen (Rapid) - Final Weight used for dosin.8 kg Estimated Creatinine Clearance: 57 Goal Trough: 15-20 mcg/mL Pharmacy Plan for Drug Dosing: Vancomycin trough level was low at 3.3. This was drawn 23.5hrs post dose. Dosing will be increased to 500mg q12h, and another trough will be drawn prior to 4th dose of new regimen. Pharmacy Service will continue to monitor and adjust dosing as required. Follow-Up Labs: Trough Vancomycin Labs to be done on [date and time ordered]: 06/12/22 @0200
[2022-06-10] MEDS: Levothyroxine 50 MCG Tablet PO (06:14)
--- NOTE | 2022-06-10 07:00 | PN.HOSP_ITS ---
Subjective Subjective No new events. Objective Data Objective Data Vital Signs: Vital Signs Temp Pulse Resp BP Pulse Ox O2 Del Method 36.8 C 88 18 135/78 H 92 Room Air 06/10/22 02:51 06/10/22 02:51 06/10/22 02:51 06/10/22 02:51 06/10/22 02:51 06/10/22 02:51 Oxygen Delivery Method Room Air Weight: 46.765 kg Body Mass Index (BMI) 20.1 Intake & Output: Intake and Output for Last 24 Hours 06/08/22 06/09/22 06/10/22 23:59 23:59 23:59 Intake Total 2115.00 / 2115.00 1615 / 1735 495 / 495 Output Total 200 / 200 800 / 950 250 / 250 Balance 1915.00 / 1915.00 815 / 785 245 / 245 Lab / Micro Data Result Diagrams: 06/08/22 05:45 06/08/22 05:45 Labs: Laboratory Results - last 24 hr 06/10/22 02:29: Vancomycin Trough 3.3 L Micro: Microbiology 06/07/22 15:30 Blood Culture (Wb) - Right Wrist Blood Culture - Preliminary No growth in 48 hours. 06/07/22 15:30 Blood Culture (Wb) - Left Wrist Blood Culture - Preliminary No growth in 48 hours. 06/07/22 15:25 Nasal Secretion SARS-CoV-2 Antigen (Rapid) - Final Physical Exam Const alert and no apparent distress HEENT HEENT Narrative: incision clean and intact. no fluctuance. Neuro Sensorium / Orientation: awake and alert Assessment & Plan Assessment/Plan (1) Laceration of scalp: QUALIFIERS: Encounter type: initial encounter Qualified Code(s): S01.01XA - Laceration without foreign body of scalp, initial encounter PLAN: Patient with history of recurrent falls from Parkinson's disease Patient is being admitted as she stated more than 9 hours in the emergency room She has been accepted into the [facility] neurosurgery department pending bed availability Patient has voiced understanding knowing that we have no neurosurgery coverage specifically for DBS She has received IV ceftriaxone prophylactically in the ED We will admit under observation to the MedSur floor, will broaden antibiotics coverage to IV vancomycin and Zosyn Gentle IV fluids, repeat blood work in a.m., follow-up with [facility] transfer line Discussed with the patient's . He discussed with his daughter and they do not want to be transferred. I feel that this patient would require any kind of intervention that may be very debilitating for her. I told him I was in agreement with her decision. Plan would be for patient be discharged today to home would continue with empiric antibiotics orally but he understands if there is clear signs of infection that that may warrant neurosurgical evaluation. He is okay with canceling the transfer to [facility] at this time. (2) Fall: PLAN: PT OT evaluate and treat PLAN: Plan 3. Parkinson's disease status post DBS, continue on rasagiline 4. Hyperlipidemia, continue statin 5. GERD, continue PPI 6. Hypothyroidism, continue Synthroid 7. Depression, continue fluoxetine 8. DVT PPx- SCDs 9. Disposition: To be determined. Awaiting on therapy evaluation and then the patient's will make a decision if he can accommodate her at home. Charges/Coding Visit Charges OBSV E&M: 09786 Initial observation care L1
[2022-06-10 08:15] VITALS: BP 125/77; PULSE 86; RESP 18; TEMP 36.5; O2SAT 93
[2022-06-10] MEDS: Pantoprazole Sodium 20 MG Tablet PO (08:25)
[2022-06-10] MEDS: Acetaminophen 325 MG Tablet 650 MG PO (08:25)
[2022-06-10] MEDS: FLUoxetine 20 MG Capsule 40 MG PO (08:25)
[2022-06-10] MEDS: Calcium (Elemental) 500 MG Tablet PO (08:25)
--- NOTE | 2022-06-10 11:32 | CASEMGMT ---
Addendum entered by Malena Hunter 06/10/22 12:15: Received tc back from Jacey at [facility], they will see pt tomorrow if pt dc's today. Private Duty list provided to pt per his request. Original Note: SHENA WOODS met with patient , provided a list of [facility] providers including quality and resource use data and consistent with the patient?s preferred geographic region, medical needs, and insurance network. The patient?s preferred provider is [facility]. He is agreeable to SN, PT, OT, [employer] and [employer]. He has spoken to [facility] for private duty care. He states he thinks his is almost at baseline and wants to take her home to be in her own environment. He does not feel pt would do well being in a SNF. TC to Jacey at [facility], referral made. Awaiting acceptance.
[2022-06-10 13:35] VITALS: BP 102/68; PULSE 83; RESP 16; TEMP 36.6; O2SAT 94
[2022-06-10] MEDS: Vancomycin IV 500 MG/100 ML BAG 100 MG IV (13:37)
--- NOTE | 2022-06-10 14:17 | DCINST_ITS ---
Discharge Instructions Diet Discharge Diet: No restrictions Activity Discharge Activity: Use Walker (with assistance) Additional Activity Instructions:: No immersion of the incision until it is completely healed and sutures removed. May clean around the incision but do not have direct water onto the incision. Dressing / Incision Call your doctor if your incision/area has: Continuous Slow Oozing, Sudden Increased Bleeding, Increased Pain/ Swelling, Increased Redness, Foul Smelling Discharge and Swelling at the incision site Call your doctor if you observe: Fever of 101 or Higher Follow Up Care Test Results: Test results from this visit will be discussed in further detail at your follow- up appointment, if applicable. Discharge Plan Admission Admit Date/Time: 06/07/22 23:03 Primary Reason for Your Visit: Fall. Head laceration. Attending Provider: Jose Rafael Mckinley Primary Care Provider: DEN ALEXANDER Consulting Providers: Lindsay Agustin Discharge Orders/Prescriptions Prescriptions: New cephalexin 500 mg capsule 500 mg PO BID Qty: 14 0RF Continued atorvastatin 80 mg Tablet 80 mg PO DAILY pantoprazole 20 mg Tablet,Delayed Release (Dr/Ec) 20 mg PO DAILY levothyroxine 50 mcg Tablet 50 mcg PO DAILY fluoxetine 20 mg Tablet 40 mg PO DAILY rasagiline 1 mg Tablet 1 mg PO DAILY ibandronate 150 mg tablet 1 tab PO QMONTH Rx Instructions: 1st day of the month calcium 600 mg PO/SL DAILY Referrals / Follow Up: DEN ALEXANDER [Other] - Within 1 Week (post hospital follow up and suture removal. ) DEN ALEXANDER [Other] Disposition Disposition (needs filled in before D/C Order can be placed): Home Health Service
--- NOTE | 2022-06-10 14:23 | DS.PCM_ITS ---
Providers Date of Admission: 06/07/22 Primary Care Physician: DEN ALEXANDER Reason For Visit: FALL, EXPOSED DBS Diagnosis Discharge Diagnosis (1) Laceration of scalp: Status: Acute Code(s): S01.01XA - Laceration without foreign body of scalp, initial encounter Qualifiers: Encounter type: initial encounter Qualified Code(s): S01.01XA - Laceration without foreign body of scalp, initial encounter Plan: Patient with history of recurrent falls from Parkinson's disease D-BRAIN stimulator was noticed in the laceration the plan was for the patient to go to the [facility]. However, after further discussions with patient's and daughter the plan is for the patient go home with home health care. They both understand that this is not standard of care but this is managing the balance between quality of life and medical treatment. There is been no clear signs of infection though they are both aware that that does not rule out any actual infection. They actually do not want the patient to have any procedure on the stimulator at this time as things appear to be intact but they understand that things could potentially get worse. They are aware of the signs and symptoms to look out for in regards to the incision and that may need to be further evaluated possibly later transfer up to [facility] but no transfer at this time being that things appear to be stable. Discussed with the patient's . He discussed with his daughter and they do not want to be transferred. I feel that this patient would require any kind of intervention that may be very debilitating for her. I told him I was in agreement with her decision. Plan would be for patient be discharged today to home would continue with empiric antibiotics orally but he understands if there is clear signs of infection that that may warrant neurosurgical evaluation. He is okay with canceling the transfer to [facility] at this time. We will discharge the patient with 7 days of cephalexin. Patient will need to follow-up with her primary care provider or return to the emergency room to have her sutures removed in about 7 to 10 days. (2) Fall: Status: Acute Code(s): W19.XXXA - Unspecified fall, initial encounter Plan: PT OT evaluate and treat Plan 3. Parkinson's disease status post DBS, continue on rasagiline 4. Hyperlipidemia, continue statin 5. GERD, continue PPI 6. Hypothyroidism, continue Synthroid 7. Depression, continue fluoxetine 8. Disposition: Home Health Care. Discussed with the patient's and daughter today. Medications at Discharge Home Medications atorvastatin 80 mg tablet 80 mg PO DAILY cholesterol 05/17/22 fluoxetine 20 mg tablet 40 mg PO DAILY depression 05/17/22 levothyroxine 50 mcg tablet 50 mcg PO DAILY thyroid 05/17/22 pantoprazole 20 mg tablet,delayed release 20 mg PO DAILY gerd 05/17/22 rasagiline 1 mg tablet 1 mg PO DAILY parkinsons med 05/17/22 calcium 600 mg PO/SL DAILY replacement 06/07/22 ibandronate 150 mg tablet 1 tab PO QMONTH osteoporosis 06/07/22 cephalexin 500 mg capsule 500 mg PO BID #14 caps 06/10/22 Hospital Course Procedures None Summary of Care Provided Minutes Spent on Discharge: 40 Weight / BMI Weight Weight: 46.765 kg Body Mass Index (BMI) 20.1 ABG / Lab / Microbiology Data Result Diagrams: 06/08/22 05:45 06/08/22 05:45 Laboratory: Laboratory Results - last 24 hr 06/10/22 02:29: Vancomycin Trough 3.3 L Microbiology: Microbiology 06/07/22 15:30 Blood Culture (Wb) - Right Wrist Blood Culture - Preliminary No growth in 48 hours. 06/07/22 15:30 Blood Culture (Wb) - Left Wrist Blood Culture - Preliminary No growth in 48 hours. 06/07/22 15:25 Nasal Secretion SARS-CoV-2 Antigen (Rapid) - Final D/C Instructions Discharge Diet: No restrictions Additional Activity Instructions: No immersion of the incision until it is completely healed and sutures removed. May clean around the incision but do not have direct water onto the incision. Call your doctor if your incision/area has: Continuous Slow Oozing, Sudden Increased Bleeding, Increased Pain/ Swelling, Increased Redness, Foul Smelling Discharge and Swelling at the incision site Call your doctor if you observe: Fever of 101 or Higher Meaningful Use Info Meaningful Use Diagnoses (Choose all that apply): None applicable Discharge Plan Admission Admit Date/Time: 06/07/22 23:03 Primary Reason for Your Visit: Fall. Head laceration. Attending Provider: Jose Rafael Mckinley Primary Care Provider: DEN ALEXANDER Consulting Providers: Lindsay Agustin Discharge Orders/Prescriptions Prescriptions: New cephalexin 500 mg capsule 500 mg PO BID Qty: 14 0RF Continued atorvastatin 80 mg Tablet 80 mg PO DAILY pantoprazole 20 mg Tablet,Delayed Release (Dr/Ec) 20 mg PO DAILY levothyroxine 50 mcg Tablet 50 mcg PO DAILY fluoxetine 20 mg Tablet 40 mg PO DAILY rasagiline 1 mg Tablet 1 mg PO DAILY ibandronate 150 mg tablet 1 tab PO QMONTH Rx Instructions: 1st day of the month calcium 600 mg PO/SL DAILY Referrals / Follow Up: DEN ALEXANDER [Other] - Within 1 Week (post hospital follow up and suture removal. ) DEN ALEXANDER [Other] Disposition Disposition (needs filled in before D/C Order can be placed): Home Health Se rvice Charges/Coding Visit Charges Inpatient E&M: 89361 Disch Hosp
--- NOTE | 2022-06-10 15:08 | CASEMGMT ---
Social Work RNCM discussed advanced directives with pt and pt , Omar Prado, who is named HCPOA. They are aware no HCPOA papers are on file with [facility] and noted they may bring them in if there is time to do so. Teena Causey, ENGINE DYNAMOMETER TESTER, MANAGER FUNCTIONAL
[2022-06-10 16:06] VITALS: BP 110/69; PULSE 74; RESP 16; TEMP 36.7; O2SAT 93
== END 2022-06-10 16:33 | disposition home health service (06) ==
LOC: ED 15:10 → MS3 23:45
PROVIDERS: Admitting Provider Internal Medicine; Emergency Provider Emergency Medicine
DX: S01.01XA Laceration without foreign body of scalp, initial encounter (principal); G20 Parkinson's disease; W13.4XXA Fall from, out of or through window, initial encounter; Z87.891 Personal history of nicotine dependence; E78.00 Pure hypercholesterolemia, unspecified; W25.XXXA Contact with sharp glass, initial encounter; K21.9 Gastro-esophageal reflux disease without esophagitis; Z79.899 Other long term (current) drug therapy; Y93.9 Activity, unspecified; Y99.9 Unspecified external cause status; Y92.009 Unspecified place in unspecified non-institutional (private) residence as the place of occurrence of the external cause; Z23 Encounter for immunization; Z96.82 Presence of neurostimulator; F32.A Depression, unspecified
CPT/HCPCS: 12002; 36415; 70450; 80048; 80053; 80202; 85025; 87040; 87811; 90715; 96361; 96365; 96366; 96367; 97116; 97162; 97166; 97530; 97802; 99218; 99285; J7030; J7050; A4216; G0378

== ENCOUNTER 2022-09-03 15:11 | Emergency (ER) | payer MEDICARE, SELFPAY ==
[2022-09-03 15:13] VITALS: BP 89/77; PULSE 90; RESP 14; TEMP 36.2; O2SAT 94; BMI 20.2
--- NOTE | 2022-09-03 15:34 | RAD_ITS ---
STUDY: X-RAY - LEFT SHOULDER REASON FOR EXAM: Female, 77 years old. trauma TECHNIQUE: 4 view(s) of the shoulder. COMPARISON: None. FINDINGS: Normal glenohumeral articulation. Normal acromioclavicular joint. Normal acromion. Normal humeral head and visualized proximal humerus. The soft tissue structures are unremarkable. Normal visualized pulmonary apex. RAD/Shoulder min 2 Views IMPRESSION: Normal x-ray examination of the shoulder. Electronically Signed: Jeancarlos Severino MD at 16:14 EDT ,
--- NOTE | 2022-09-03 15:34 | CT_ITS ---
STUDY: CT BRAIN WITHOUT CONTRAST REASON FOR EXAM: Female, 77 years old. trauma RADIATION DOSAGE (If Supplied By Facility): CTDIvol = ( 44.99 ) mGy, DLP = ( 745.49 ) mGycm TECHNIQUE: Transaxial CT imaging of the brain was performed without administration of intravenous contrast material. Individualized dose optimization techniques were used for this CT. COMPARISON: 06/07/2022 FINDINGS: Normal soft tissue structures. Normal calvarium. Bilateral frontal the leads. There is mild cerebral atrophy with widening of the extra-axial spaces and ventricular dilatation. There are areas of decreased attenuation within the white matter tracts of the supratentorial brain, consistent with microvascular disease changes. Normal basal ganglia and thalami. Normal brainstem. Normal cerebellum. There is no intracranial hemorrhage. There are no findings of an acute ischemic infarction. Normal visualized paranasal sinuses. CT/Brain/Head without Contrast IMPRESSION: No change from 06/07/2022 Electronically Signed: Jeancarlos Severino MD at 16:26 EDT ,
--- NOTE | 2022-09-03 15:34 | RAD_ITS ---
STUDY: X-RAY - LEFT KNEE REASON FOR EXAM: Female, 77 years old. injury TECHNIQUE: 4 view(s) of the knee. COMPARISON: None. FINDINGS: Normal visualized distal femur. Normal visualized proximal tibia and fibula. Normal proximal tibiofibular articulation. There is mild degenerative arthrosis of the medial femorotibial compartment. There is mild degenerative arthrosis of the lateral femorotibial compartment. There is mild degenerative arthrosis of the patellofemoral articulation. The soft tissue structures are unremarkable. RAD/Knee 4 or More Views IMPRESSION: No acute fracture or dislocation. Mild arthrosis. Electronically Signed: Jeancarlos Severino MD at 16:15 EDT ,
--- NOTE | 2022-09-03 15:35 | EX.ED.UPPERE ---
HPI History of Present Illness Chief Complaint: Upper Extremity Injury Informant: patient and spouse/S.O. Narrative Narrative: 77-year-old female presenting to the emergency room with left knee left arm pain. Patient has a history of Parkinson's and has a DBS. She has frequent falls. Today she fell injuring her left elbow left shoulder as well as left knee. She has been able to bear weight. No loss of consciousness. Her noted that she had a contusion on her head but is unsure if it is related to today's fall or another one that she may not remember. She is not on any blood thinners. There has been no external bleeding that she has seen [facility] Medical History Anxiety Depression Fall Former smoker GERD (gastroesophageal reflux disease) Hypercholesterolemia Hypothyroidism Hypothyroidism Mechanical complication of deep brain stimulator Osteoporosis Parkinson disease Parkinson's disease Home Medications atorvastatin 80 mg tablet 80 mg PO DAILY cholesterol 05/17/22 [History Last Taken Unknown] fluoxetine 20 mg tablet 40 mg PO DAILY depression 05/17/22 [History Last Taken Unknown] levothyroxine 50 mcg tablet 50 mcg PO DAILY thyroid 05/17/22 [History Last Taken Unknown] pantoprazole 20 mg tablet,delayed release 20 mg PO DAILY gerd 05/17/22 [History Last Taken Unknown] rasagiline 1 mg tablet 1 mg PO DAILY parkinsons med 05/17/22 [History Last Taken Unknown] calcium 600 mg PO/SL DAILY replacement 06/07/22 [History Last Taken Unknown] ibandronate 150 mg tablet 1 tab PO QMONTH osteoporosis 06/07/22 [History Last Taken Unknown] cephalexin 500 mg capsule 500 mg PO BID #14 caps 06/10/22 [Rx Last Taken Unknown] pimavanserin 10 mg tablet (Nuplazid) 10 mg PO DAILY 09/03/22 [History Last Taken Unknown] tramadol 50 mg tablet 50 mg PO Q8H PRN pain 3 days #9 tabs 09/03/22 [Rx Last Taken Unknown] Allergy/AdvReac Type Severity Reaction Status Date / Time lorazepam [From Ativan] AdvReac Intermediate Other Verified 09/03/22 15:37 haloperidol [From Haldol] AdvReac Other Verified 09/03/22 15:37 Surgical History S/P deep brain stimulator placement S/P deep brain stimulator placement Social History household members: spouse Smoking Status: Former smoker alcohol intake: never substance use type: does not use ROS ROS ED Constitutional Constitutional ED: Denies chills, fever(s) or weight loss Eyes Eyes: Denies change in vision or diplopia ENT ENT ED: Denies ear pain, rhinorrhea or sore throat Cardiovascular Cardiovascular: Denies chest pain, orthopnea, palpitations or racing heartbeat Respiratory/Chest Respiratory/Chest: Denies cough, dyspnea or orthopnea Gastrointestinal Gastrointestinal: Denies abdominal pain, diarrhea, nausea or vomiting Genitourinary Genitourinary ED: Denies dysuria, hematuria or urinary frequency Musculoskeletal Musculoskeletal: Reports other Details: See history of present illness ; Denies arthralgias, back pain or myalgias Integumentary Denies abscess or rash Neurologic Neurologic: Denies headache(s) or weakness Psychiatric Psychiatric: Denies anxiety, depression, suicidal ideation or suicidal thoughts Endocrine Endocrinology: Denies polydipsia, polyphagia or polyuria Allergic/Immunologic Allergic/Immunologic ED: Denies mouth swelling, tongue swelling or urticaria EXAM Physical Exam Const Vital Signs: 09/03/22 15:13 Temperature 97.1 F L Temperature Source Temporal Pulse Rate 90 Respiratory Rate 14 Blood Pressure 89/77 L Blood Pressure Mean 81 Pulse Ox 94 Oxygen Delivery Method Room Air Positive well nourished and well developed General Appearance ED: well developed HEENT Reports normocephalic, head/scalp atraumatic and moist mucous membranes Eyes PERRL and EOMs intact bilaterally Neck no lymphadenopathy, supple and no JVD Resp normal respiratory effort and clear to auscultation bilaterally Cardio regular rate, regular rhythm and no murmurs GI normal to inspection, nondistended, normoactive bowel sounds and non-tender Palpation: soft Back/Spine no CVA tenderness and normal ROM Extremity Extremity Narrative: Patient is tenderness to palpation over the left proximal humerus left elbow. There is no obvious deformity and she has full range of motion although be painful particularly painful when I palpate. There is a hematoma over the olecranon. The left knee demonstrates no significant effusion or hematoma. Ligaments are stable. There is no obvious deformity. General Extremety ED: Negative for edema General Extremity: Negative for edema Neuro oriented x3 and CN's II-XII intact bilaterally Sensorium / Orientation: alert Motor Exam: strength 5/5 throughout Psych mental status grossly normal Mood & Affect: Negative for depressed or tearful Skin no rashes or lesions noted and no wounds MDM MDM MDM Narrative Medical decision making narrative: Plain films of the left shoulder and left elbow as well as the left knee were obtained. My interpretation of these is that demonstrates a left olecranon nondisplaced fracture. Patient was placed in a posterior Ortho-Glass splint. She was placed in a sling. Family was requesting Ultram off the device with her daughter. I discussed my concerns with prescribing Ultram with somebody over the age of 65 that is on the beers list. I would recommend Tylenol first. The is willing to try some Ultram to see how she does on it. CT of the brain is negative the patient will be discharged home to follow-up with orthopedics. She has seen [facility] in the past. Discharge Plan Triage Chief Complaint: Upper Extremity Injury ED Provider: Song Kim Dx/Rx/DC Orders Clinical Impression: Contusion of knee, left, Parkinson's disease, Closed fracture of left olecranon process, Fall, Hematoma of scalp Instructions: ED Elbow Fracture Prescriptions: New tramadol 50 mg tablet 50 mg PO Q8H PRN (Reason: pain) 3 Days Qty: 9 0RF No Action atorvastatin 80 mg Tablet 80 mg PO DAILY pantoprazole 20 mg Tablet,Delayed Release (Dr/Ec) 20 mg PO DAILY levothyroxine 50 mcg Tablet 50 mcg PO DAILY fluoxetine 20 mg Tablet 40 mg PO DAILY rasagiline 1 mg Tablet 1 mg PO DAILY ibandronate 150 mg tablet 1 tab PO QMONTH Rx Instructions: 1st day of the month calcium 600 mg PO/SL DAILY cephalexin 500 mg capsule 500 mg PO BID Qty: 14 0RF Nuplazid 10 mg tablet 10 mg PO DAILY Primary Care Provider: DEN ALEXANDER Referrals: DEN ALEXANDER [Other] Lul Brasher MD [Med Staff - Active Staff] - As soon as possible Disposition Disposition: Home, Self Care
--- NOTE | 2022-09-03 15:45 | RAD_ITS ---
STUDY: X-RAY - LEFT ELBOW REASON FOR EXAM: Female, 77 years old. injury TECHNIQUE: 3 view(s) of the elbow. COMPARISON: None. FINDINGS: Acute slightly distracted oblique fracture the olecranon of the ulna. Normal radiocapitellar and ulnotrochlear articulations. Posterior soft tissue swelling. RAD/Elbow min 3 Views IMPRESSION: Acute distracted oblique fracture the olecranon with posterior soft tissue swelling. Electronically Signed: Jeancarlos Severino MD at 16:16 EDT ,
[2022-09-03 17:17] VITALS: RESP 16
== END 2022-09-03 17:35 | disposition home or self-care (01) ==
PROVIDERS: Emergency Provider Emergency Medicine; Visit Provider Emergency Medicine
DX: S80.02XA Contusion of left knee, initial encounter (principal); G20 Parkinson's disease; S52.022A Displaced fracture of olecranon process without intraarticular extension of left ulna, initial encounter for closed fracture; S00.03XA Contusion of scalp, initial encounter; E78.00 Pure hypercholesterolemia, unspecified; E03.9 Hypothyroidism, unspecified; F41.9 Anxiety disorder, unspecified; F32.A Depression, unspecified; K21.9 Gastro-esophageal reflux disease without esophagitis; Z79.899 Other long term (current) drug therapy; W19.XXXA Unspecified fall, initial encounter; Z87.891 Personal history of nicotine dependence
CPT/HCPCS: 29405; 70450; 73030; 73080; 73564; 99283

== ENCOUNTER → 2023-10-02 | Outpatient (CLI) | payer MEDICARE, SELFPAY ==
--- NOTE | 2023-10-02 14:00 | CT_ITS ---
STUDY: CT BRAIN WITHOUT CONTRAST REASON FOR EXAM: Female, 78 years old. ROACH RADIATION DOSAGE (If Supplied By Facility): CTDIvol = ( 44.99 ) mGy, DLP = ( 829.85 ) mGycm TECHNIQUE: Transaxial CT imaging of the brain was performed without administration of intravenous contrast material. Individualized dose optimization techniques were used for this CT. COMPARISON: September 03, 2022 FINDINGS: Normal soft tissue structures. Normal calvarium. Calcific plaquing of the cavernous carotids Minor atrophy and periventricular white matter ischemic changes. Postsurgical changes status post placement bilateral thalamic stimulators. Normal brainstem. Normal cerebellum. Empty sella deformity of uncertain clinical significance There is no intracranial hemorrhage. There are no findings of an acute ischemic infarction. Normal visualized paranasal sinuses. Postsurgical changes of the orbits CT/Brain/Head without Contrast IMPRESSION: Minor atrophy and periventricular white matter changes with postsurgical changes No evidence for obstructive hydrocephalus mass or acute bleed Empty sella deformity of uncertain significance although may be seen with pseudotumor cerebri. Clinical correlation recommended Electronically Signed: Bryson Fitzgerald MD at 19:30 EST ,
== END | disposition home or self-care (01) ==
LOC: CT 13:57
PROVIDERS: PCP Family Medicine
DX: R51.9 Headache, unspecified (principal)
CPT/HCPCS: 70450

== ENCOUNTER 2024-03-27 21:08 | Inpatient (IN) | payer MEDICARE, SELFPAY ==
[2024-03-27 21:11] VITALS: BP 136/84; PULSE 91; RESP 18; TEMP 36.3; O2SAT 84; BMI 25.4
[2024-03-27 21:26] VITALS: O2SAT 94
--- NOTE | 2024-03-27 22:04 | EKG12_ITS ---
Test Reason : DYSRHYTHMIA Blood Pressure : / mmHG Vent. Rate : 081 BPM Atrial Rate : 081 BPM P-R Int : 136 ms QRS Dur : 078 ms QT Int : 408 ms P-R-T Axes : 000 -07 114 degrees QTc Int : 473 ms Normal sinus rhythm ST & T WAVE ABNORMALITY Abnormal ECG Confirmed by Michael Nash ([id number]), food editor MAYELIN CARRASCO ([id number]) on 03/28/2024 12:06:45 PM Referred By: Confirmed By:Michael Nash
--- NOTE | 2024-03-27 22:04 | CT_ITS ---
STUDY: CT BRAIN WITHOUT CONTRAST REASON FOR EXAM: Female, 78 years old. Trauma RADIATION DOSAGE (If Supplied By Facility): CTDIvol = ( 44.99 ) mGy, DLP = ( 796.11 ) mGycm TECHNIQUE: Transaxial CT imaging of the brain was performed without administration of intravenous contrast material. Individualized dose optimization techniques were used for this CT. COMPARISON: October 02, 2023 FINDINGS: Normal soft tissue structures. Normal calvarium. Normal size ventricles and extra-axial spaces for the patient''s age. Normal white matter tracts of the cerebral hemispheres. Normal basal ganglia. Stable stimulator is at the thalami. Normal brainstem. Normal cerebellum. There is no intracranial hemorrhage. There are no findings of an acute ischemic infarction. Normal visualized paranasal sinuses. CT/Brain/Head without Contrast IMPRESSION: No acute intracranial pathology of the brain. Electronically Signed: Lokesh Vitale DO at 23:34 EDT Reading Location ID and State: [facility] / [place] Tel [phone], Service support ,
--- NOTE | 2024-03-27 22:07 | EDS_ITS ---
HPI HPI - Fall History of Present Illness Chief Complaint: Fall Informant: patient, spouse/S.O. and EMS Narrative Narrative: provides most of the history for this 78-year-old female that had a fall at home. She has Parkinson's, she had recently gotten out of the shower, she had an accident with regards to having a bowel movement, was cleaning it up and she was mobilizing and slipped on the wet floor falling to her left hip injuring it. They did not try to have her bear weight before calling EMS who brought her to the ER. She complains of pain there, as well as her low back. She thinks she may have hit her head but she is not sure. She is a very poor historian cannot give me good details. Most of it comes from the . No recent illness. Has had surgery on her left hip in the past. Does not take any anticoagulants. Patient states she feels a little short of breath and is unsure why, she questions whether it is because of the pain but states it does not hurt to breathe. [facility] Medical History (Updated 03/28/24 @ 02:[address] Chris Rose, DO) Mechanical complication of deep brain stimulator Parkinson's disease Hypothyroidism Hypothyroidism Anxiety Depression Osteoporosis Former smoker Fall GERD (gastroesophageal reflux disease) Hypercholesterolemia Parkinson disease Home Medications ?Medication ?Instructions ?Recorded ?Last Taken ?Type atorvastatin 80 mg tablet 80 mg PO DAILY cholesterol 05/17/22 Unknown History fluoxetine 20 mg tablet 40 mg PO DAILY depression 05/17/22 Unknown History levothyroxine 50 mcg tablet 50 mcg PO DAILY thyroid 05/17/22 Unknown History pantoprazole 20 mg tablet,delayed 20 mg PO DAILY gerd 05/17/22 Unknown History release rasagiline 1 mg tablet 1 mg PO DAILY parkinsons med 05/17/22 Unknown History ibandronate 150 mg tablet 1 tab PO QMONTH osteoporosis 06/07/22 Unknown History tramadol 50 mg tablet 50 mg PO Q8H PRN pain 3 days #9 09/03/22 Unknown Rx tabs cholecalciferol (vitamin D3) 50 50 mcg PO DAILY replacement 03/28/24 Unknown History mcg (2,000 unit) capsule multivitamin (Daily Multi-Vitamin 1 tab PO DAILY supplement 03/28/24 Unknown History tablet) pimavanserin 34 mg capsule 34 mg PO QHS hallucinations 03/28/24 Unknown History (Nuplazid) Allergy/AdvReac Type Severity Reaction Status Date / Time lorazepam (From Ativan) AdvReac Intermediate Other Verified 03/27/24 21:10 haloperidol (From Haldol) AdvReac Other Verified 03/27/24 21:10 Surgical History S/P deep brain stimulator placement S/P deep brain stimulator placement Social History household members: spouse Smoking Status: Former smoker alcohol intake: never substance use type: does not use ROS ROS ED Constitutional Constitutional ED: Denies chills or fever(s) Eyes Eyes: Denies change in vision or diplopia ENT ENT ED: Denies ear pain, epistaxis, facial pain or rhinorrhea Cardiovascular Cardiovascular: Denies chest pain or palpitations Respiratory/Chest Respiratory/Chest: Reports dyspnea; Denies cough Gastrointestinal Gastrointestinal: Denies abdominal pain, diarrhea, melena, nausea or vomiting Genitourinary Genitourinary ED: Denies dysuria or hematuria Musculoskeletal Musculoskeletal: Reports back pain and extremity pain; Denies neck pain Integumentary Denies abscess, Abrasions, laceration or rash Neurologic Neurologic: Denies headache(s), paresthesias or weakness EXAM Physical Exam Const Vital Signs: 03/27/24 21:11 03/27/24 21:26 03/27/24 22:42 Temperature 97.3 F L Temperature Source Temporal Pulse Rate 91 Respiratory Rate 18 Respiratory Effort Normal Respiratory Depth Normal Respiratory Pattern Normal Blood Pressure 136/84 H Blood Pressure Mean 101 Pulse Ox 84 94 90 Oxygen Delivery Method Room Air Nasal Cannula Room Air Oxygen Flow Rate (L/min) 2 03/27/24 23:18 03/28/24 01:00 Temperature Temperature Source Pulse Rate 78 73 Respiratory Rate 18 16 Respiratory Effort Respiratory Depth Respiratory Pattern Blood Pressure 113/71 102/62 Blood Pressure Mean 85 75 Pulse Ox 92 93 Oxygen Delivery Method Nasal Cannula Nasal Cannula Oxygen Flow Rate (L/min) 5 4 Positive well nourished and well developed General Appearance ED: well developed and NAD HEENT Reports TM's clear, TM's normal bilaterally and nasal mucous membranes and turbinates normal atraumatic; Negative for tenderness Face and Sinus: Negative for facial tenderness Tympanic Membrane ED: Yes TM's clear Eyes PERRL and EOMs intact bilaterally Visual Acuity: other Other Details: no entrapment or pain with extraocular movements Neck full ROM and supple General: Negative for tenderness Chest Wall inspection of chest normal and palpation of chest normal Chest: symmetrical chest wall rise; Negative for crepitus or tenderness Resp normal respiratory effort and clear to auscultation bilaterally Percussion: other equal BS bilat Cardio no murmurs Rate: regular rate Rhythm: regular rhythm GI normal to inspection, nondistended, normoactive bowel sounds and soft to palpation GI Narrative: Very mild tenderness to palpation her left lower quadrant and pelvis ASIS, stable to AP compression Back/Spine normal ROM Back/Spine Narrative: Lumbar spine is tender, as well as the left paraspinal area all the way into the buttock but no tenderness at the ischial tuberosity. Cervical Spine: Negative for cervical spine tenderness Thoracic Spine / Upper Back: Negative for thoracic spinal tenderness Lumbar Spine / Lower Back: lumbar spinal tenderness Extremity normal to inspection and full ROM Extremity Narrative: Able to move the left hip without any difficulty, she cannot fully extend it but she feels better if she has her thigh flexed up. Pain with internal/external rotation. Tenderness at the greater trochanter. No other areas of extremity tenderness or limitation. General Extremety ED: Yes tenderness Neuro oriented x3, CN's II-XII intact bilaterally, moves all extremities, no focal motor deficits and no sensory deficits noted [place] Coma Scale: document GCS findings Spontaneous Obeys Commands Oriented 15 Sensorium / Orientation: awake and alert Psych thought process normal Mood & Affect: anxious Skin no wounds Lesions: no lesions Rashes: no rashes MDM MDM MDM Narrative Medical decision making narrative: Obtained a head CT, I reviewed the images and report and agree with it, it is negative for any acute injury/abnormality. Her labs show a leukocytosis, troponin is normal, EKG shows no acute injury pattern sinus rhythm. She was 84% on room air upon arrival to the ER so we put her on oxygen 2 L which kept her at about 90-92. After getting some morphine she dropped further and nursing had to put her on 3-4 L. I did a chest x-ray because she was complaining of dyspnea, for reasons that are unclear. She denies having a major cough lately. 1 view chest x-ray my interpretation shows chronic changes but nothing acute, radiology thought she had some minor atelectasis in the right base. I looked at this, I do not think it explains hypoxemia to this degree, as when I took her off of oxygen she was keenly alert and desatted down to 82% on room air so I put her back on 3 L. She is not on oxygen at home. Given all of this in order to evaluate for the most pathology possible including pneumonia, pulmonary embolus, occult pneumothorax, wide mediastinum/dissection, CT angiography of the chest was performed with PE protocol, shows no PE but she does have bilateral basilar pneumonia. Given this starting her on Levaquin and discussing with hospitalist. With regards to her injuries, three-view x-ray of the LS spine shows an L1 fracture, radiology was in agreement I do not know how long she has had this, she had a very remote CT of the abdomen/pelvis but it is archived and I was not able to see the images. Three-view x-ray of the pelvis and left hip are negative for acute fracture on my interpretation. She is still having back pain after pain medication, I suspect the L1 fracture is new/acute. She is neurologically intact throughout both lower extremities. Lab Data Attestation: I reviewed the patient's lab results. Labs: Laboratory Results - last 24 hr 03/27/24 03/27/24 22:24 23:47 WBC 14.3 H RBC 4.53 Hgb 12.3 Hct 38.6 MCV 85.2 MCH 27.2 MCHC 31.9 L RDW Std Deviation 50.2 H RDW Coeff of Su 16.3 H Plt Count 356 MPV 8.8 Immature Gran % (Auto) 0.900 Neut % (Auto) 82.0 H Lymph % (Auto) 10.0 L [place] % (Auto) 6.3 Eos % (Auto) 0.5 Baso % (Auto) 0.3 Absolute Neuts (auto) 11.7 H Absolute Lymphs (auto) 1.43 Nucleated RBC % 0 Sodium 139 Potassium 3.8 Chloride 105 Carbon Dioxide 26.0 Anion Gap 8 BUN 14 Creatinine 0.82 Estim Creat Clear Calc 45.51 Est GFR (MDRD) Af Amer 86 Est GFR (MDRD) Non-Af 71 BUN/Creatinine Ratio 17.0 Glucose 191 H Calcium 9.1 Troponin I High Sens 4 Urine Color Yellow Urine Clarity Clear Urine pH 5.0 Ur Specific [place] 1.025 Urine Protein 15 H Urine Glucose (UA) Normal Urine Ketones 5 H Urine Occult Blood Negative Urine Nitrite Negative Urine Bilirubin Negative Urine Urobilinogen 1 H Ur Leukocyte Esterase 25 H Urine RBC 0 SEEN Urine WBC 0-5 SEEN Ur Squamous Epith Cells 0-5 SEEN Urine Bacteria RARE Urine Mucus 0 SEEN Radiography Diagnostic Testing: Clinical Impression(s) from Imaging Studies Brain CT 03/27/24 22:04 IMPRESSION: No acute intracranial pathology of the brain. Electronically Signed: Lokesh Vitale DO at 23:34 EDT , Chest X-Ray 03/27/24 23:05 IMPRESSION: Mild right basilar atelectasis. Electronically Signed: Lokesh Vitale DO at 23:35 EDT , Hip/Pelvis X-Ray 03/27/24 23:05 IMPRESSION: No evidence of displaced pelvic or hip fracture. Electronically Signed: Lokesh Vitale DO at 23:37 EDT , Lumbar Spine X-Ray 03/27/24 23:05 IMPRESSION: Wedge compression of L1. Electronically Signed: Lokesh Vitale DO at 23:39 EDT , Rhythm Strip Rhythm Strip: Sinus Rhythm Rate: 80 Ectopy: None EKG Initial EKG: Attestation: I personally reviewed and interpreted this EKG as follows: Interpretation: Sinus Rhythm and No Acute Injury Pattern Management Discussion w/another healthcare provider: Hospitalist Discharge Plan Dx/Rx/DC Orders Clinical Impression: Hypoxemia, Fall from slipping on wet surface, Closed compression fracture of L1 vertebra, Pneumonia of both lower lobes Disposition Disposition: Acute Care [facility] Discharge Date/Time: 03/28/24 02:24
[2024-03-27 22:34] LABS: Absolute Lymphocyte Count 1.43 X10^3/uL (0.83-4.51); Absolute Neutrophil Count 11.7 X10^3/uL (2.0-7.7); Basophil# 0.05 X10^3/uL; Basophil% 0.3 % (0-1); Eosinophil# 0.07 X10^3/uL; Eosinophils% 0.5 % (0-5); Hematocrit 38.6 % (37-47); Hemoglobin 12.3 g/dL (12.0-15.0); Lymphocyte # 1.43 X10^3/ul (0.83-4.51); Mean Corp Hgb Conc 31.9 g/dL (32-36); Mean Corpuscular Hgb 27.2 pg (27.0-32.0); Mean Corpuscular Volume 85.2 fL (81-99); Mean Platelet Vol. 8.8 fl (6.2-12.0); Monocyte% 6.3 % (0-10); NRBC Flagged by Analyzer 0 % (0-5); Neutrophil # 11.72 X10^3/uL (2.7-7.7); Platelet Count 356 K/mm3 (150-450); RBC Distribution Width CV 16.3 % (11.6-14.6); RBC Distribution Width SD 50.2 fl (35.1-43.9); Red Blood Count 4.53 M/mm3 (4.2-5.4); White Blood Count 14.3 K/mm3 (4.4-11.0)
[2024-03-27] MEDS: 0.9% Normal Saline (1000mL) 1,000 ML 100 ML IV (22:37)
[2024-03-27] MEDS: Morphine 2 MG/ML Syringe IV (22:38)
[2024-03-27] MEDS: Ondansetron 4 MG/2 ML Vial IV (22:38)
[2024-03-27 22:42] VITALS: O2SAT 90
[2024-03-27 22:53] LABS: Anion Gap 8 (5-15); BUN 14 mg/dL (7-18); Calcium,Total 9.1 mg/dL (8.5-10.1); Chloride 105 mmol/L (98-107); Creatinine, Serum 0.82 mg/dL (0.55-1.02); EST Glomerular Filtration Rate 71 mL/min (>60); Est Glom Filt Rate - Afr Amer 86 mL/min (>60); Estimated Creatinine Clearance 45.51 ml/min; Glucose 191 mg/dL (74-106); Potassium 3.8 mmol/L (3.5-5.1); Sodium Level 139 mmol/L (136-145); Troponin-I HS 4 pg/mL (3.0-54.0)
--- NOTE | 2024-03-27 23:05 | RAD_ITS ---
STUDY: X-RAY - LUMBAR SPINE REASON FOR EXAM: Female, 78 years old. Fall/pain TECHNIQUE: 2 view(s) of the lumbar spine were obtained. COMPARISON: None FINDINGS: Normal lumbar lordosis. There is no substantial scoliosis. There is a normal alignment of the vertebrae. Degenerative spurring at the endplates at L2-3. Compression fracture of L1. Normal disc space heights. The soft tissue structures are unremarkable. Calcified aorta. RAD/Lumbar Spine 2 or 3 Views IMPRESSION: Wedge compression of L1. Electronically Signed: Lokesh Vitale DO at 23:39 EDT Reading Location ID and State: [facility] / [place] Tel [phone], Service support ,
--- NOTE | 2024-03-27 23:05 | RAD_ITS ---
INDICATION: fall/pain EXAMINATION/TECHNIQUE: X-RAY - XR Hip Unilateral with Pelvis when performed; 3 Views COMPARISON: FINDINGS: PELVIC BONES: No displaced fracture, destructive or sclerotic lesions. Note that overlapping bowel shadows may however obscure fine detail. Sacroiliac joints are unremarkable. No widening of the pubic symphysis. HIPS: The articular structures are unremarkable. 3 orthopedic screws are noted through the left femoral neck No displaced fracture seen in this frontal view. SOFT TISSUES: No soft tissue swelling or gas. RAD/HIP, UNI W/ Pelvis 2-3 Views IMPRESSION: No evidence of displaced pelvic or hip fracture. Electronically Signed: Lokesh Vitale DO at 23:37 EDT Reading Location ID and State: [facility] / [place] Tel [phone], Service support ,
--- NOTE | 2024-03-27 23:05 | RAD_ITS ---
INDICATION: sob, fall EXAMINATION/TECHNIQUE: X-RAY - XR Chest 1 View COMPARISON: FINDINGS: LINES/DEVICES: There is a right-sided implanted electronic device. LUNGS: No consolidation, edema or effusion. Right basilar atelectasis. No pneumothorax. MEDIASTINUM AND CARDIOVASCULAR STRUCTURES: Cardiac silhouette not enlarged. Central airways and mediastinal contour are unremarkable. BONES AND SOFT TISSUES: Unremarkable. RAD/Chest 1 View IMPRESSION: Mild right basilar atelectasis. Electronically Signed: Lokesh Vitale DO at 23:35 EDT ,
[2024-03-27 23:18] VITALS: BP 113/71; PULSE 78; RESP 18; O2SAT 92
[2024-03-27 23:50] LABS: Mucous, Urine 0 SEEN /hpf (<or=2+); Red Blood Cells-Urine 0 SEEN /hpf (0-5)
[2024-03-27 23:51] LABS: Color, Urine Yellow (Yellow); Glucose, Dipstick Normal (Normal); Ketone-Dipstick 5 mg/dl (Negative); Leukocyte Esterase-Dipstick 25 /ul (Negative); Nitrite-Dipstick Negative (Negative); Occult Blood-Urine Negative /ul (Negative); Protein-Dipstick 15 mg/dl (Negative); Specific Gravity, Urine 1.025 (1.002-1.030); Urine Bilirubin Dipstick Negative (Negative); Urine Clarity Clear (Clear); Urine Urobilinogen 1 mg/dl (Normal)
[2024-03-28] VITALS (11 sets, daily range): BP systolic 102–146; BP diastolic 56–80; PULSE 64–91; RESP 16–20; TEMP 36.2–37.1; O2SAT 92–94; BMI 22.6
[2024-03-28 00:05] LABS: Bacteria RARE /hpf (None Seen); Squamous Epithelial Cells - UA 0-5 SEEN /hpf (5-10); White Blood Cells 0-5 SEEN /hpf (0-5)
--- NOTE | 2024-03-28 01:30 | PCM.HP.STD ---
[facility] - General General Date of Admission: 03/28/24 Date of Service: 03/28/24 Chief Complaint: Fall with Severe Back Pain, SOB and Confusion. HPI Narrative EBONIE PRADO, is a 78 F with a past medical history of hyperlipidemia, hypothyroidism, former history of tobacco abuse, Parkinson's disease; with mechanical complication of deep brain stimulator, osteoporosis, depression with anxiety, GERD and osteoarthritis; s/p Left total hip replacement who presents to [facility] ER complaining of fall with severe back pain, shortness of breath and confusion. Ms. Prado is not a fully reliable historian at this time so information was gathered from the chart, medical staff, computer and her at the bedside in the ER. Her reports her symptoms began approximately one hour prior to arrival after she fell at home. She went on to explain because of her Parkinson's disease she is unsteady on her feet and she had recently gotten out of the shower after an episode of fecal incontinence with her helping her to clean up and while she was attempting to mobilize she slipped on the wet floor onto her Left hip and back. They immediately activated EMS as she had severe pain in her Left hip and low back so they did not try to get up or bear weight. She is not sure if she hit her head. She admits to severe shortness of breath she attributed to pain from trying to breathe after her fall and was noted to have an oxygen saturation of 82% on room air shortly after arrival. There is no report of recent illness, fever, chills, nausea, vomiting, chest pain, chest pressure, diaphoresis, paresthesias or focal neurologic deficits. In the ER she was noted to have a lumbar x-ray suspicious for an acute L1 wedge compression fracture complicated by CT evidence of bibasilar pneumonia with leukocytosis of 14.3 present on admission with clinical evidence of respiratory insufficiency after recent mechanical fall compounded by metabolic encephalopathy and she was then admitted to the general medical floor for ongoing care for stay that is expected to extend beyond 2 midnights. [facility] Medical History (Updated 03/28/24 @ 06:[address] Chris Rose, DO) Mechanical complication of deep brain stimulator Parkinson's disease Hypothyroidism Hypothyroidism Anxiety Depression Osteoporosis Former smoker Fall GERD (gastroesophageal reflux disease) Hypercholesterolemia Parkinson disease Home Medications ?Medication ?Instructions ?Recorded ?Last Taken ?Type atorvastatin 80 mg tablet 80 mg PO DAILY cholesterol 05/17/22 Unknown History fluoxetine 20 mg tablet 40 mg PO DAILY depression 05/17/22 Unknown History levothyroxine 50 mcg tablet 50 mcg PO DAILY thyroid 05/17/22 Unknown History pantoprazole 20 mg tablet,delayed 20 mg PO DAILY gerd 05/17/22 Unknown History release rasagiline 1 mg tablet 1 mg PO DAILY parkinsons med 05/17/22 Unknown History ibandronate 150 mg tablet 1 tab PO QMONTH osteoporosis 06/07/22 Unknown History tramadol 50 mg tablet 50 mg PO Q8H PRN pain 3 days #9 09/03/22 Unknown Rx tabs cholecalciferol (vitamin D3) 50 50 mcg PO DAILY replacement 03/28/24 Unknown History mcg (2,000 unit) capsule multivitamin (Daily Multi-Vitamin 1 tab PO DAILY supplement 03/28/24 Unknown History tablet) pimavanserin 34 mg capsule 34 mg PO QHS hallucinations 03/28/24 Unknown History (Nuplazid) Allergy/AdvReac Type Severity Reaction Status Date / Time lorazepam (From Ativan) AdvReac Intermediate Other Verified 03/27/24 21:10 haloperidol (From Haldol) AdvReac Other Verified 03/27/24 21:10 Surgical History S/P deep brain stimulator placement S/P deep brain stimulator placement Social History household members: spouse Smoking Status: Former smoker alcohol intake: never substance use type: does not use ROS ROS Narrative Review of systems: General: Patient denies fever or chills. HENT: Denies headache, denies stuffy nose, denies sore throat EYES: Denies changes in vision or discharge from eyes. Resp: Patient admits to shortness of breath but denies cough. Cardiac: Denies chest pain, palpitations or heart racing. GI: Denies abdominal pain, denies changes in bowel, denies nausea or vomiting : Denies changes in urination Extremity: Denies swelling Musculoskeletal: Feels somewhat generally weak and unwell with persistent Left hip pain and low back pain as per HPI.. Neuro: Patient denies headache, paresthesias or focal neurologic deficits. Heme: Denies any bleeding or bruising Skin: Denies rashes Psychiatric: No complaints voiced related uncontrolled depression or anxiety. Endocrine: No polyuria, polydipsia or polyphagia. The rest of the 14 point ROS was negative except for positives in HPI. Vital Signs Vital Signs Vital Signs: 03/27/24 21:11 03/27/24 21:26 03/27/24 22:42 Temperature 97.3 F L Temperature Source Temporal Pulse Rate 91 Respiratory Rate 18 Respiratory Effort Normal Respiratory Depth Normal Respiratory Pattern Normal Blood Pressure 136/84 H Blood Pressure Mean 101 Pulse Ox 84 94 90 Oxygen Delivery Method Room Air Nasal Cannula Room Air Oxygen Flow Rate (L/min) 2 03/27/24 23:18 Temperature Temperature Source Pulse Rate 78 Respiratory Rate 18 Respiratory Effort Respiratory Depth Respiratory Pattern Blood Pressure 113/71 Blood Pressure Mean 85 Pulse Ox 92 Oxygen Delivery Method Nasal Cannula Oxygen Flow Rate (L/min) 5 Weight Weight: 130 lb 8.218 oz Body Mass Index (BMI) 25.4 Physical Exam Const alert and average body habitus Constitutional Narrative: Mild distress noted with the patient confused and appearing chronically ill. General Appearance: cooperative Orientation / Consciousness: confused HEENT normocephalic, head/scalp atraumatic, hearing grossly normal bilaterally and moist oral mucous membranes Eyes PERRL and EOMs intact bilaterally Neck no lymphadenopathy and supple Resp Resp Narrative: Diminished breath sounds throughout with mildly increased work of breathing noted. Cardio regular rate and regular rhythm GI normal to inspection, nondistended, normoactive bowel sounds, soft to palpation, non-tender and non-distended Extremity normal to inspection, full ROM and no clubbing, cyanosis or edema Skin Skin Narrative: Patient has no evidence of abscess or rash. Neuro CN's II-XII intact bilaterally, moves all extremities and no focal motor deficits Sensorium / Orientation: awake, alert, oriented to person and oriented to place Speech: speech normal Psych affect normal Results Medical Records Data Attestation: I reviewed the patient's medical records Lab / Micro Data Attestation: I reviewed the patient's lab results. 03/27/24 22:24 03/27/24 22:24 Labs: Laboratory Results - last 24 hr 03/27/24 22:24: WBC 14.3 H, RBC 4.53, Hgb 12.3, Hct 38.6, MCV 85.2, MCH 27.2, MCHC 31.9 L, RDW Std Deviation 50.2 H, RDW Coeff of Su 16.3 H, Plt Count 356, MPV 8.8, Immature Gran % (Auto) 0.900, Neut % (Auto) 82.0 H, Lymph % (Auto) 10.0 L, [place] % (Auto) 6.3, Eos % (Auto) 0.5, Baso % (Auto) 0.3, Absolute Neuts (auto) 11.7 H, Absolute Lymphs (auto) 1.43, Nucleated RBC % 0, Sodium 139, Potassium 3.8, Chloride 105, Carbon Dioxide 26.0, Anion Gap 8, BUN 14, Creatinine 0.82, Estim Creat Clear Calc 45.51, Est GFR (MDRD) Af Amer 86, Est GFR (MDRD) Non-Af 71, BUN/Creatinine Ratio 17.0, Glucose 191 H, Calcium 9.1, Troponin I High Sens 4 03/27/24 23:47: Urine Color Yellow, Urine Clarity Clear, Urine pH 5.0, Ur Specific [place] 1.025, Urine Protein 15 H, Urine Glucose (UA) Normal, Urine Ketones 5 H, Urine Occult Blood Negative, Urine Nitrite Negative, Urine Bilirubin Negative, Urine Urobilinogen 1 H, Ur Leukocyte Esterase 25 H, Urine RBC 0 SEEN, Urine WBC 0-5 SEEN, Ur Squamous Epith Cells 0-5 SEEN, Urine Bacteria RARE, Urine Mucus 0 SEEN Rhythm Strip Rhythm Strip: Sinus Rhythm Rate: 80 Ectopy: None Imaging Radiology Impression Brain CT 03/27/24 22:04 IMPRESSION: No acute intracranial pathology of the brain. Electronically Signed: Lokesh Vitale DO at 23:34 EDT , Chest X-Ray 03/27/24 23:05 IMPRESSION: Mild right basilar atelectasis. Electronically Signed: Lokesh Vitale DO at 23:35 EDT , Hip/Pelvis X-Ray 03/27/24 23:05 IMPRESSION: No evidence of displaced pelvic or hip fracture. Electronically Signed: Lokesh Vitale DO at 23:37 EDT , Lumbar Spine X-Ray 03/27/24 23:05 IMPRESSION: Wedge compression of L1. Electronically Signed: Lokesh Vitale DO at 23:39 EDT , Chest CTA 03/28/24 23:45 IMPRESSION: Bibasilar pneumonia. No demonstrated pulmonary embolism or arterial dissection. Electronically Signed: Opal Earl MD at 1:10 EDT , Assessment & Plan Assessment/Plan (1) Closed compression fracture of L1 vertebra: QUALIFIERS: Encounter type: initial encounter Qualified Code(s): S32.010A - Wedge compression fracture of first lumbar vertebra, initial encounter for closed fracture (2) Fall from slipping on wet surface: QUALIFIERS: Encounter type: initial encounter Qualified Code(s): W01.0XXA - Fall on same level from slipping, tripping and stumbling without subsequent striking against object, initial encounter (3) Pneumonia of both lower lobes: QUALIFIERS: Pneumonia type: due to unspecified organism Qualified Code(s): J18.9 - Pneumonia, unspecified organism (4) Hypoxemia: (5) Parkinson's disease: QUALIFIERS: Dyskinesia presence: with dyskinesia Fluctuating manifestations: with fluctuating manifestations Qualified Code(s): G20.B2 - Parkinson's disease with dyskinesia, with fluctuations (6) Mechanical complication of deep brain stimulator: QUALIFIERS: Encounter type: sequela Qualified Code(s): T85.190S - Other mechanical complication of implanted electronic neurostimulator of brain electrode (lead), sequela PLAN: Plan 1. L1 wedge compression fracture after mechanical fall at home in the setting of known osteoporosis - Admit to general medical floor. Place Lidoderm patch and give Tylenol as needed for [id number] (level 1-5 out of 10) pain or fever. Give morphine IV as needed for severe (level 6-10 out of 10) pain. Finally, we will check CT of the L-spine in the a.m. to confirm suspicion of acute wedge compression fracture noted on x-ray and we will consult orthopedic spine physician to see patient on rounds in the a.m. for further recommendations with help appreciated in advance. 2. CT evidence of bibasilar pneumonia with leukocytosis of 14.3 present on admission complicating #1 - Continue broad-spectrum antibiotics and await culture and sensitivity data. Check urine antigens for Legionella and Streptococcus pneumonia. 3. Parkinson's disease; with previous mechanical complication of deep brain stimulator and chronically poor balance and mobility compounding #1 & #2 - Continue Parkinson's medication as previous. PT/OT and case management consult and treat in case patient will require ECF for subacute rehabilitation with help appreciated in advance. 4. Acute metabolic encephalopathy arising from #1 - #3 - Continue supportive care outlined above and monitor for improvement. Check TSH, B12, folate, GERALDO and UDS to evaluate for potential reversible causes of confusion. 5. Hyperlipidemia - Resume statin as previous. 6. Hypothyroidism - Continue Synthroid at current dose and check TSH. 7. Former history of tobacco abuse - Noted. 8. Depression with anxiety - Resume current regimen. 9. GERD - Continue PPI. 10. Osteoarthritis; s/p Left total hip replacement - Noted with no evidence of acute fracture or dislocation on x-rays in ER this admission. 11. DVT prophylaxis - Lovenox 40 mg subcu daily. Total time: Approximately 75 minutes. Charges/Coding Visit Charges Inpatient E&M: 17505 Init Hosp L3
[2024-03-28] MEDS: levoFLOXacin IV 750 MG/150 ML BAG 100 MG IV (02:02)
--- NOTE | 2024-03-28 02:38 | CT_ITS ---
INDICATION: Suspected acute L1 wedge compression fracture. EXAMINATION: CT LUMBAR SPINE - CT Spine Lumbar W/O Contrast Injection TECHNIQUE: Helically acquired images were obtained of the lumbar spine. 2D reformats were reviewed. A radiation dose optimization technique was used for this scan. The protocol utilizes one or more of the following dose reduction techniques: automated exposure control, adjustment of mA and/or kV according to patient size,and/or use of iterative reconstruction technique. IV Contrast dosage and agent: None. RADIATION DOSAGE (If Supplied By Facility): CTDIvol = ( 18.93 ) mGy, DLP = ( 531.08 ) mGycm COMPARISON: No relevant prior comparison study available FINDINGS: VERTEBRAE: There is acute/subacute compression fracture of L1 with 30% decreased height of the vertebral body. There is minimal retropulsion of the posterior wall. There is an old compression fracture of L5. No discrete lytic or blastic abnormality observed. There is 7 mm spondylolisthesis at L4-5. DISCS and SPINAL CANAL: Multilevel degenerative spondylosis more prominent at L2-3, L3-4, L4-5 resulting in [id number] spinal canal and neural foramina narrowing . VISUALIZED ABDOMEN: Visualized abdominal aorta is not dilated. There is no retroperitoneal adenopathy. CT/Spine Lumbar without Contrast IMPRESSION: There is acute/subacute compression fracture of L1 with 30% decreased height of the vertebral body. There is a nonobstructive stone in the right kidney measures 8 mm. Electronically Signed: Opal Earl MD at 6:40 EDT ,
[2024-03-28] MEDS: 0.9% Normal Saline (1000mL) 1,000 ML 75 ML IV ×2 (03:22→20:42)
[2024-03-28] MEDS: guaiFENesin 1,200 MG Tablet 1200 MG PO ×2 (03:23→20:59)
[2024-03-28] MEDS: Levothyroxine 50 MCG Tablet PO (03:23)
[2024-03-28] MEDS: Lidocaine 5% Patch 1 PATCH TOPICAL (03:23)
[2024-03-28] MEDS: Acetaminophen 325 MG Tablet 650 MG PO ×2 (03:28→16:59)
[2024-03-28 04:12] LABS: Alcohol, Blood (Medical)-Serum < 3.0 mg/dL
[2024-03-28 04:32] LABS: Amphetamine Urine NEGATIVE (<1000 ng/mL); Barbiturate Urine NEGATIVE (< 200 ng/mL); Benzodiazepine Urine NEGATIVE (< 200 ng/mL); Cocaine Urine NEGATIVE (< 300 ng/mL); Ecstacy Urine NEGATIVE (< 500 ng/mL); Methadone Urine NEGATIVE (< 300 ng/mL); Opiates Urine POSITIVE (< 300 ng/mL); PCP Urine NEGATIVE (< 25 ng/mL); THC Urine NEGATIVE (< 50 ng/mL); Vista UDS pH Range 5
[2024-03-28 05:20] LABS: Thyroid Stim Hormone (TSH) 0.96 uIU/mL (0.358-3.74)
[2024-03-28 05:47] LABS: Vitamin B12 352 pg/mL (211-911)
[2024-03-28] MEDS: Ipratropium/Albuterol Sulfate 3 ML AMPUL.NEB INHALATION ×3 (07:17→19:28)
--- NOTE | 2024-03-28 07:20 | PN_ITS ---
Progress Note Patient is a 78-year-old lady who was admitted following a mechanical fall was found to have L1 wedge compression fracture. Admitted to regular nursing floor for subsequent management Patient seen and examined, initial assessment including history and physical diagnostic data quality consultant orders reviewed will follow.
[2024-03-28] MEDS: Ceftriaxone 1 GM/50 ML BAG IV (10:15)
[2024-03-28] MEDS: Pantoprazole Sodium 20 MG Tablet PO (10:18)
[2024-03-28] MEDS: Zinc Sulfate 50 mg zinc (220 mg) ORAL capsule PO (10:18)
[2024-03-28] MEDS: Multivitamins,Therapeutic Tablet 1 TABLET PO (10:18)
[2024-03-28] MEDS: Ascorbic Acid 500 MG Tablet 1000 MG PO ×2 (10:18→17:01)
[2024-03-28] MEDS: Lactobacillis Acidophilus 2 CAP PO ×2 (10:18→20:59)
[2024-03-28] MEDS: Fluoxetine HCl 40 MG CAPSULE PO (10:18)
[2024-03-28] MEDS: Cholecalciferol (VIT D3) 25 MCG TABLET (1,000 UNITS) 50 MCG PO (10:19)
[2024-03-28] MEDS: Ensure Plus High Protein 120 ML LIQUID PO (10:20)
[2024-03-28] MEDS: Azithromycin 500 MG in Dextrose 5%-Water (250mL Bag) 250 ML 250 MG IV (10:21)
[2024-03-28] MEDS: traMADol 50 MG Tablet PO ×2 (10:24→20:59)
--- NOTE | 2024-03-28 13:36 | CONS.ORTHO ---
HPI Consult Data Date of Consult: 03/28/24 HPI Narrative HPI Narrative: EBONIE LIM, is a 78 F who presents with low back pain after fall yesterday. She was admitted yesterday for pain control. I was consulted today. I saw the patient in 313. She was awake in bed with pain and decent control. She mentions of pain in the mid to lower back area. She denies any radiation of pain in the lower extremities. She mentioned that she fell yesterday although she is a poor historian and cannot give details about the mechanism of the fall. She also knows about an old fracture in the lower lumbar spine. She has Parkinson's and has difficulty with balance and has had multiple falls. [facility] Medical History (Updated 03/28/24 @ 06:[address] Chris Rose DO) Mechanical complication of deep brain stimulator Parkinson's disease Hypothyroidism Hypothyroidism Anxiety Depression Osteoporosis Former smoker Fall GERD (gastroesophageal reflux disease) Hypercholesterolemia Parkinson disease Home Medications ?Medication ?Instructions ?Recorded ?Last Taken ?Type atorvastatin 80 mg tablet 80 mg PO DAILY cholesterol 05/17/22 Unknown History fluoxetine 20 mg tablet 40 mg PO DAILY depression 05/17/22 Unknown History levothyroxine 50 mcg tablet 50 mcg PO DAILY thyroid 05/17/22 Unknown History pantoprazole 20 mg tablet,delayed 20 mg PO DAILY gerd 05/17/22 Unknown History release rasagiline 1 mg tablet 1 mg PO DAILY parkinsons med 05/17/22 Unknown History ibandronate 150 mg tablet 1 tab PO QMONTH osteoporosis 06/07/22 Unknown History tramadol 50 mg tablet 50 mg PO Q8H PRN pain 3 days #9 09/03/22 Unknown Rx tabs cholecalciferol (vitamin D3) 50 50 mcg PO DAILY replacement 03/28/24 Unknown History mcg (2,000 unit) capsule multivitamin (Daily Multi-Vitamin 1 tab PO DAILY supplement 03/28/24 Unknown History tablet) pimavanserin 34 mg capsule 34 mg PO QHS hallucinations 03/28/24 Unknown History (Nuplazid) Allergy/AdvReac Type Severity Reaction Status Date / Time lorazepam (From Ativan) AdvReac Intermediate Other Verified 03/27/24 21:10 haloperidol (From Haldol) AdvReac Other Verified 03/27/24 21:10 Surgical History S/P deep brain stimulator placement S/P deep brain stimulator placement Social History household members: spouse Smoking Status: Former smoker alcohol intake: never substance use type: does not use Vital Signs Vital Signs Vital Signs: 03/27/24 21:11 03/27/24 21:26 03/27/24 22:42 Temperature 97.3 F L Temperature Source Temporal Pulse Rate 91 Pulse Strength Respiratory Rate 18 Respiratory Effort Normal Respiratory Depth Normal Respiratory Pattern Normal Blood Pressure 136/84 H Blood Pressure Mean 101 Blood Pressure Source Blood Pressure Position Blood Pressure Location Pulse Ox 84 94 90 Oxygen Delivery Method Room Air Nasal Cannula Room Air Oxygen Flow Rate (L/min) 2 03/27/24 23:18 03/28/24 01:00 03/28/24 02:07 Temperature 97.2 F L Temperature Source Pulse Rate 78 73 90 Pulse Strength Respiratory Rate 18 16 16 Respiratory Effort Respiratory Depth Respiratory Pattern Blood Pressure 113/71 102/62 104/61 Blood Pressure Mean 85 75 75 Blood Pressure Source Blood Pressure Position Blood Pressure Location Pulse Ox 92 93 93 Oxygen Delivery Method Nasal Cannula Nasal Cannula Oxygen Flow Rate (L/min) 5 4 03/28/24 02:10 03/28/24 03:11 03/28/24 03:13 Temperature 97.2 F L 97.9 F Temperature Source Temporal Oral Pulse Rate 85 91 Pulse Strength Respiratory Rate 16 18 Respiratory Effort Respiratory Depth Respiratory Pattern Blood Pressure 104/61 146/80 H Blood Pressure Mean 75 102 Blood Pressure Source Monitor Blood Pressure Position Semi-Fowlers Blood Pressure Location Left Arm Pulse Ox 92 94 Oxygen Delivery Method Nasal Cannula Nasal Cannula Nasal Cannula Oxygen Flow Rate (L/min) 44 2 03/28/24 07:18 03/28/24 07:18 03/28/24 09:00 Temperature 98.6 F Temperature Source Oral Pulse Rate 87 75 Pulse Strength Respiratory Rate 18 18 Respiratory Effort Respiratory Depth Respiratory Pattern Normal Blood Pressure 129/56 H Blood Pressure Mean 80 Blood Pressure Source Monitor Blood Pressure Position Semi-Fowlers Blood Pressure Location Left Arm Pulse Ox 92 94 Oxygen Delivery Method Nasal Cannula Room Air Oxygen Flow Rate (L/min) 1 03/28/24 09:00 03/28/24 10:00 Temperature Temperature Source Pulse Rate Pulse Strength Normal (2+) Respiratory Rate Respiratory Effort Respiratory Depth Respiratory Pattern Blood Pressure Blood Pressure Mean Blood Pressure Source Blood Pressure Position Blood Pressure Location Pulse Ox Oxygen Delivery Method Room Air Oxygen Flow Rate (L/min) Weight Weight: 115 lb 11.883 oz Body Mass Index (BMI) 22.6 Physical Exam Narrative Examination the back with the patient rolling over to the left side shows tenderness in the upper lumbar region. Neurologic evaluation of lower extremity shows 5 x 5 power normal shows normal sensations in all dermatomes. Const alert and oriented x3 Lab / Micro Data 03/27/24 22:24 03/27/24 22:24 Labs: Laboratory Results - last 24 hr 03/27/24 22:24: WBC 14.3 H, RBC 4.53, Hgb 12.3, Hct 38.6, MCV 85.2, MCH 27.2, MCHC 31.9 L, RDW Std Deviation 50.2 H, RDW Coeff of Su 16.3 H, Plt Count 356, MPV 8.8, Immature Gran % (Auto) 0.900, Neut % (Auto) 82.0 H, Lymph % (Auto) 10.0 L, [place] % (Auto) 6.3, Eos % (Auto) 0.5, Baso % (Auto) 0.3, Absolute Neuts (auto) 11.7 H, Absolute Lymphs (auto) 1.43, Nucleated RBC % 0, Sodium 139, Potassium 3.8, Chloride 105, Carbon Dioxide 26.0, Anion Gap 8, BUN 14, Creatinine 0.82, Estim Creat Clear Calc 45.51, Est GFR (MDRD) Af Amer 86, Est GFR (MDRD) Non-Af 71, BUN/Creatinine Ratio 17.0, Glucose 191 H, Calcium 9.1, Troponin I High Sens 4 03/27/24 23:47: Urine Color Yellow, Urine Clarity Clear, Urine pH 5.0, Ur Specific [place] 1.025, Urine Protein 15 H, Urine Glucose (UA) Normal, Urine Ketones 5 H, Urine Occult Blood Negative, Urine Nitrite Negative, Urine Bilirubin Negative, Urine Urobilinogen 1 H, Ur Leukocyte Esterase 25 H, Urine RBC 0 SEEN, Urine WBC 0-5 SEEN, Ur Squamous Epith Cells 0-5 SEEN, Urine Bacteria RARE, Urine Mucus 0 SEEN 03/28/24 03:30: Urine Opiates Screen POSITIVE H, Urine Methadone Screen NEGATIVE, Ur Barbiturates Screen NEGATIVE, Ur Phencyclidine Scrn NEGATIVE, Ur Amphetamines Screen NEGATIVE, MDMA (Ecstasy) Screen NEGATIVE, U Benzodiazepines Scrn NEGATIVE, Urine Cocaine Screen NEGATIVE, U Cannabinoids Screen NEGATIVE, Ur Drug Screen Comment 03/28/24 03:38: Vitamin B12 352, Folate 30.10, TSH 0.96, Ethyl Alcohol < 3.0 Micro: Microbiology 03/28/24 04:05 Mucosa - Nasopharyngeal Respiratory Panel (PCR) - Final 03/28/24 03:30 Urine, Clean Catch Legionella Antigen - Final 03/28/24 03:30 Urine, Clean Catch Streptococcus pneumoniae Antigen (M - Final Rhythm Strip Rhythm Strip: Sinus Rhythm Rate: 80 Ectopy: None Imaging Radiology Impression Brain CT 03/27/24 22:04 IMPRESSION: No acute intracranial pathology of the brain. Electronically Signed: Lokesh Vitale DO at 23:34 EDT , Chest X-Ray 03/27/24 23:05 IMPRESSION: Mild right basilar atelectasis. Electronically Signed: Lokesh Vitale DO at 23:35 EDT , Hip/Pelvis X-Ray 03/27/24 23:05 IMPRESSION: No evidence of displaced pelvic or hip fracture. Electronically Signed: Lokesh Vitale DO at 23:37 EDT , Lumbar Spine X-Ray 03/27/24 23:05 IMPRESSION: Wedge compression of L1. Electronically Signed: Lokesh Vitale DO at 23:39 EDT , Lumbar Spine CT 03/28/24 02:38 IMPRESSION: There is acute/subacute compression fracture of L1 with 30% decreased height of the vertebral body. There is a nonobstructive stone in the right kidney measures 8 mm. Electronically Signed: Opal Earl MD at 6:40 EDT , Chest CTA 03/28/24 23:45 IMPRESSION: Bibasilar pneumonia. No demonstrated pulmonary embolism or arterial dissection. Electronically Signed: Opal Earl MD at 1:10 EDT , Assessment & Plan Assessment/Plan (1) Closed compression fracture of L1 vertebra: QUALIFIERS: Encounter type: initial encounter Qualified Code(s): S32.010A - Wedge compression fracture of first lumbar vertebra, initial encounter for closed fracture PLAN: Plan I reviewed the patient's x-rays as well as CT lumbar spine done earlier today. She has an old healed L5 compression fracture. She also has an acute new L1 compression fracture which was not visible in an older CT scan 2 years ago. I explained to her the imaging findings in detail. Patient has osteoporotic L1 compression fracture which is acute from the fall yesterday. I explained to her treatment options for compression fractures. Rest analgesia and bracing were discussed. A TLSO brace may be used for comfort while she is upright and standing. I explained to her that most compression fractures heal over 6 to 12 weeks timeframe. If the pain worsens with time or if she feels shows radiographic collapse, she may benefit from cement augmentation techniques such as kyphoplasty or spine desi. To have this procedure, she will need to be able to undergo general anesthesia and also obtain an MRI of the lumbar spine. Patient at this time would like to continue with rest and analgesics. She will discuss with her further and reach out to us to see if she would want to proceed with cement augmentation at a later date. Patient was in agreement and may follow-up as needed in orthopedic clinic. Charges/Coding Visit Charges Inpatient E&M: 62111 Init Hosp L3
--- NOTE | 2024-03-28 14:03 | CASEMGMT ---
SHENA WOODS Assessment Face to Face with patient for initial transition planning/care coordination assessment. SHENA WOODS introduced self and role at [facility] [place], pt voices understanding. Pt is A&Ox4 and is resting comfortably in bed and is calm. Care providers, pharmacy, and demographics verified. 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 Denies SNF history Pt?s goal: Return to PLOF Plan: TBD. Ortho is consulted and the pt may require surgery. Pt will be seen by PT once appropriate to see what her current status is. Pt states that it is too early to tell what she will need at time of DC. CM/SW to follow pt progression in the hospital as well as therapy in regard to safe DC from [facility] [place]. Eleonora Sharma RN, CM
[2024-03-28] MEDS: PIMAVANSERIN TARTRATE 34 MG PO (20:58)
[2024-03-28] MEDS: Atorvastatin Calcium 80 MG Tablet PO ×2 (20:59)
--- NOTE | 2024-03-28 23:45 | CT_ITS ---
STUDY: CTA CHEST REASON FOR EXAM: Female, 78 years old. dyspnea, low pulse ox, nml CXR RADIATION DOSAGE (If Supplied By Facility): CTDIvol = ( 6.91 ) mGy, DLP = ( 237.62 ) mGycm TECHNIQUE: The examination was performed with the intravenous administration of IV 75mL Isovue-370. Post-processing of the angiographic images was performed, with multiplanar reformation and 3D reconstruction. The protocol utilizes one or more of the following dose reduction techniques: automated exposure control, adjustment of mA and/or kV according to patient size,and/or use of iterative reconstruction technique. COMPARISON: CT Abdomen/PelvisJul 2021 FINDINGS: Normal enhancement of the main pulmonary artery and right and left pulmonary arteries. Normal enhancement of the bilateral peripheral pulmonary arteries. There is no demonstrated pulmonary embolism. Normal thoracic aorta and visualized great vessels. There is no demonstrated aortic dissection. Normal heart and pericardium. Normal mediastinum. Normal hilar regions. Normal visualized trachea and bronchi. Ill-defined airspace disease in the dependent part of the right and left lung lower lobes suggesting bilateral pneumonia. Normal pleura. Normal chest wall structures. Normal osseous structures. Normal visualized upper abdomen. CT/CTA Chest W/WO Contrast IMPRESSION: Bibasilar pneumonia. No demonstrated pulmonary embolism or arterial dissection. Electronically Signed: Opal Earl MD at 1:10 EDT ,
[2024-03-29] VITALS (9 sets, daily range): BP systolic 110–150; BP diastolic 64–72; PULSE 74–96; RESP 16–24; TEMP 36.2–36.8; O2SAT 80–97
[2024-03-29] MEDS: 0.9% Saline Lock 10 ML Syringe IV (02:48)
[2024-03-29] MEDS: Morphine 2 MG/ML Syringe IV (02:48)
--- NOTE | 2024-03-29 05:59 | RAD_ITS ---
STUDY: X-RAY CHEST REASON FOR EXAM: Female, 78 years old. Pneumonia-486 TECHNIQUE: Frontal and lateral views of the chest. COMPARISON: March 27, 2024 FINDINGS: Stimulator device on the right with leads extending superiorly. There is postoperative change of the left neck. There is left greater than right lower lung atelectasis or infiltrate. There is no demonstrated pleural abnormality. Normal size heart. Normal mediastinum and caron. Normal visualized pulmonary arteries. Normal visualized aortic arch and descending thoracic aorta. Normal visualized thoracic spine. Normal visualized ribs, clavicles, and shoulders. There is no demonstrated abnormality of the visualized soft tissue structures of the upper abdomen. RAD/Chest PA and Lateral IMPRESSION: Lower lung atelectasis or infiltrate. Electronically Signed: Andre Butler MD at 8:41 EDT ,
[2024-03-29] MEDS: Levothyroxine 50 MCG Tablet PO (06:19)
[2024-03-29] MEDS: traMADol 50 MG Tablet PO ×2 (06:19→17:56)
[2024-03-29] MEDS: 0.9% Normal Saline (1000mL) 1,000 ML 75 ML IV (07:04)
[2024-03-29] MEDS: Ipratropium/Albuterol Sulfate 3 ML AMPUL.NEB INHALATION ×2 (07:16→13:05)
[2024-03-29] MEDS: Multivitamins,Therapeutic Tablet 1 TABLET PO (08:54)
[2024-03-29] MEDS: Ascorbic Acid 500 MG Tablet 1000 MG PO ×2 (08:56→16:46)
[2024-03-29] MEDS: Lactobacillis Acidophilus 2 CAP PO ×2 (08:57→20:15)
[2024-03-29] MEDS: guaiFENesin 1,200 MG Tablet 1200 MG PO ×2 (09:01→20:16)
[2024-03-29] MEDS: Lidocaine 5% Patch 1 PATCH TOPICAL (09:01)
[2024-03-29] MEDS: Pantoprazole Sodium 20 MG Tablet PO (09:02)
[2024-03-29] MEDS: Fluoxetine HCl 40 MG CAPSULE PO (09:03)
[2024-03-29] MEDS: Cholecalciferol (VIT D3) 25 MCG TABLET (1,000 UNITS) 50 MCG PO (09:03)
[2024-03-29] MEDS: Zinc Sulfate 50 mg zinc (220 mg) ORAL capsule PO (09:05)
[2024-03-29] MEDS: Ensure Plus High Protein 120 ML LIQUID PO ×2 (09:09→14:58)
[2024-03-29] MEDS: Azithromycin 500 MG in Dextrose 5%-Water (250mL Bag) 250 ML 250 MG IV (09:09)
--- NOTE | 2024-03-29 10:09 | CASEMGMT ---
Noted therapy chris, SHENA CM into pt room, pt present at bedside. Discussed dc planning and therapy evals. states that he would like pt to be able to walk indep prior to going home. Pt and would like to see how pt does today with therapy before making any decisions.
[2024-03-29] MEDS: Ceftriaxone 1 GM/50 ML BAG IV (10:37)
--- NOTE | 2024-03-29 12:22 | CASEMGMT ---
Discharge Planning A list of SNF providers including quality and resource use data and consistent with the patient's preferred geographic region, medical needs, and insurance network was created in [employer] Guide.? This list was provided to the Antoinette Gan Discharge Planning Asst.
--- NOTE | 2024-03-29 14:55 | PCM.PN.HOSP ---
Reason for Visit Reason for Visit: Diagnoses Parkinson's disease (03/28/24) Parkinson's disease with dyskinesia, with fluctuations (03/28/24) Pneumonia, unspecified organism (03/28/24) Hypoxemia (03/28/24) Wedge compression fracture of first lumbar vertebra, initial encounter for closed fracture (03/28/24) Other mechanical complication of implanted electronic neurostimulator of brain electrode (lead), initial encounter (03/28/24) Other mechanical complication of implanted electronic neurostimulator of brain electrode (lead), sequela (03/28/24) Fall on same level from slipping, tripping and stumbling without subsequent striking against object, initial encounter (03/28/24) Objective Data Objective Data Vital Signs: Vital Signs Temp Pulse Resp BP Pulse Ox O2 Del Method O2 Flow Rate 98.0 F 87 18 125/71 H 94 Room Air 3 03/29/24 14:52 03/29/24 14:52 03/29/24 14:52 03/29/24 14:52 03/29/24 14:52 03/29/24 14:52 03/29/24 08:37 Oxygen Flow Rate (L/min) 3 Oxygen Delivery Method Room Air Weight: 115 lb 11.883 oz Body Mass Index (BMI) 22.6 Intake & Output: Intake and Output for Last 24 Hours 03/27/24 03/28/24 03/29/24 23:59 23:59 23:59 Intake Total 2496.67 / 2496.67 1082.5 / 1082.5 Output Total 700 / 700 Balance 1796.67 / 1796.67 1082.5 / 1082.5 Lab / Micro Data 03/27/24 22:24 03/27/24 22:24 Micro: Microbiology 03/28/24 04:05 Mucosa - Nasopharyngeal Respiratory Panel (PCR) - Final 03/28/24 03:30 Urine, Clean Catch Legionella Antigen - Final 03/28/24 03:30 Urine, Clean Catch Streptococcus pneumoniae Antigen (M - Final Radiography Diagnostic Testing: Radiology Impression Chest X-Ray 03/29/24 05:59 IMPRESSION: Lower lung atelectasis or infiltrate. Electronically Signed: Andre Butler MD at 8:41 EDT , Rhythm Strip Rhythm Strip: Sinus Rhythm Rate: 80 Ectopy: None Physical Exam Narrative Seen and examined. Patient has memory lapses probably chronic dementia. Complain of pain over lumbar spine mostly on sitting up or laying down/changing posture. No fever. Denies cough or sputum production, shortness of breath Physical exam General: Alert, Oriented x3, Cooperative HEENT: Atraumatic, PERRLA, EOMI, Normocephalic Oral: Oral mucosa moist. No Gingival or Mucosal Lesions/ Ulcerations Neck: Supple, No JVD, Negative Carotid Bruits Chest wall/Lungs: Air entry diminished in bilateral lung bases. No crepitation/rhonchi Cardiovascular: Regular rate, Regular Rhythm, Normal S1, Normal S2, No M/G/R Abdomen: Bowel Sounds Present, Soft, Non Tender, Non-Distended : No dysuria. No renal angle tenderness. No suprapubic tenderness. Extremities: No edema, Capillary Refill Less than 3 Seconds Skin: No rashes, No breakdown Musculoskeletal: No Tenderness to Palpation of Joints or Extremities. Bilateral knee and hip arthritis. Spine: Tenderness present over L1 vertebral and paraspinal muscle. ROM restricted of lumbar spine. Neurological: Cranial nerves II-XII grossly intact, DTR 2+/4. No acute focal neurological deficit. Psych/Mental Status: Flat affect, dementia. Assessment & Plan Assessment/Plan (1) Closed compression fracture of L1 vertebra: QUALIFIERS: Encounter type: initial encounter Qualified Code(s): S32.010A - Wedge compression fracture of first lumbar vertebra, initial encounter for closed fracture (2) Fall from slipping on wet surface: QUALIFIERS: Encounter type: initial encounter Qualified Code(s): W01.0XXA - Fall on same level from slipping, tripping and stumbling without subsequent striking against object, initial encounter (3) Pneumonia of both lower lobes: QUALIFIERS: Pneumonia type: due to unspecified organism Qualified Code(s): J18.9 - Pneumonia, unspecified organism (4) Hypoxemia: (5) Parkinson's disease: QUALIFIERS: Dyskinesia presence: with dyskinesia Fluctuating manifestations: with fluctuating manifestations Qualified Code(s): G20.B2 - Parkinson's disease with dyskinesia, with fluctuations (6) Mechanical complication of deep brain stimulator: QUALIFIERS: Encounter type: sequela Qualified Code(s): T85.190S - Other mechanical complication of implanted electronic neurostimulator of brain electrode (lead), sequela PLAN: Plan 78-year-old female was admitted after mechanical fall and is found to have L1 wedge compression fracture. 1. L1 wedge compression fracture after mechanical fall at home in the setting of known osteoporosis - Admit to general medical floor. Place Lidoderm patch and give Tylenol as needed for [id number] (level 1-5 out of 10) pain or fever. IV morphine 2 mg for severe pain. CT of lumbar spine individually reviewed and shows acute wedge compression fracture of L1 vertebra. Cannot have MRI because she has a pacemaker. Pain management Dr. Olu Gagnon consulted. Orthospine Dr. Gerald Disla is also consulted. On a stool softener as patient is on morphine. 2. Leukocytosis may be inflammatory from compression fracture: CTA negative for PE. Airspace opacity in bilateral lung bases without air bronchograms most likely bibasilar atelectasis. Discussed with the patient and her and patient does not have new signs and symptoms of pneumonia like cough, sputum production or fever. leukocytosis of 14.3 present on admission: Urinary antigens are negative. Respiratory panel negative. Empirically on IV ceftriaxone and Zithromax. Discontinue Zithromax. 3. Parkinson's disease; with previous mechanical complication of deep brain stimulator and chronically poor balance and mobility compounding #1 & #2 - Continue Parkinson's medication as previous. PT/OT and case management consult and treat in case patient will require ECF for subacute rehabilitation with help appreciated in advance. 4. Acute metabolic encephalopathy arising from #1 - #3 - Continue supportive care outlined above and monitor for improvement. Check TSH, B12, folate, GERALDO and UDS to evaluate for potential reversible causes of confusion. 5. Hyperlipidemia - Resume statin as previous. 6. Hypothyroidism - Continue Synthroid at current dose and check TSH. 7. Former history of tobacco abuse - Noted. 8. Depression with anxiety - Resume current regimen. 9. GERD - Continue PPI. 10. Osteoarthritis; s/p Left total hip replacement - Noted with no evidence of acute fracture or dislocation on x-rays in ER this admission. 11. DVT prophylaxis - Lovenox 40 mg subcu daily. I talked to the patient and gave my clinical impression of L1 compression fracture along with the radiological findings. I said adipocyte and may be due to fall and compression fracture of L1 vertebra. Empirically on IV antibiotic but clinically she does not seem to have pneumonia. Clinical Impression(s) from Imaging Studies Brain CT 03/27/24 22:04 IMPRESSION: No acute intracranial pathology of the brain. Electronically Signed: Lokesh Vitale DO at 23:34 EDT , Chest X-Ray 03/27/24 23:05 IMPRESSION: Mild right basilar atelectasis. Electronically Signed: Lokesh Vitale DO at 23:35 EDT , Hip/Pelvis X-Ray 03/27/24 23:05 IMPRESSION: No evidence of displaced pelvic or hip fracture. Electronically Signed: Lokesh Vitale DO at 23:37 EDT , Lumbar Spine X-Ray 03/27/24 23:05 IMPRESSION: Wedge compression of L1. Electronically Signed: Lokesh Vitale DO at 23:39 EDT , Lumbar Spine CT 03/28/24 02:38 IMPRESSION: There is acute/subacute compression fracture of L1 with 30% decreased height of the vertebral body. There is a nonobstructive stone in the right kidney measures 8 mm. Electronically Signed: Opal Earl MD at 6:40 EDT , Chest CTA 03/28/24 23:45 IMPRESSION: Bibasilar pneumonia. No demonstrated pulmonary embolism or arterial dissection. Electronically Signed: Opal Earl MD at 1:10 EDT , Chest X-Ray 03/29/24 05:59 IMPRESSION: Lower lung atelectasis or infiltrate. Electronically Signed: Andre Butler MD at 8:41 EDT , Charges/Coding Visit Charges Inpatient E&M: 17568 Subs Hosp L2
[2024-03-29] MEDS: Lactulose 20 GM/30 ML UDC 10 GM PO ×2 (16:46→20:16)
[2024-03-29] MEDS: Acetaminophen 325 MG Tablet 650 MG PO (20:16)
[2024-03-29] MEDS: PIMAVANSERIN TARTRATE 34 MG PO (20:20)
[2024-03-29] MEDS: Senna/Docusate Sodium 1 Tablet 2 TABLET PO (20:29)
[2024-03-30] VITALS (9 sets, daily range): BP systolic 121–134; BP diastolic 66–87; PULSE 76–98; RESP 16–18; TEMP 36.5–37; O2SAT 89–96
[2024-03-30] MEDS: 0.9% Normal Saline (1000mL) 1,000 ML 75 ML IV ×2 (00:18→08:54)
[2024-03-30] MEDS: Ipratropium/Albuterol Sulfate 3 ML AMPUL.NEB INHALATION ×4 (01:42→19:52)
[2024-03-30] MEDS: Levothyroxine 50 MCG Tablet PO (05:35)
[2024-03-30] MEDS: Acetaminophen 325 MG Tablet 650 MG PO ×2 (05:35→20:29)
[2024-03-30] MEDS: Lactobacillis Acidophilus 2 CAP PO ×2 (08:54→20:31)
[2024-03-30] MEDS: Multivitamins,Therapeutic Tablet 1 TABLET PO ×2 (08:54→08:57)
[2024-03-30] MEDS: guaiFENesin 1,200 MG Tablet 1200 MG PO ×2 (08:55→20:32)
[2024-03-30] MEDS: Pantoprazole Sodium 20 MG Tablet PO (08:55)
[2024-03-30] MEDS: Lidocaine 5% Patch 1 PATCH TOPICAL (08:55)
[2024-03-30] MEDS: Fluoxetine HCl 40 MG CAPSULE PO (08:56)
[2024-03-30] MEDS: Lactulose 20 GM/30 ML UDC 10 GM PO ×2 (08:56→20:31)
[2024-03-30] MEDS: Ensure Plus High Protein 120 ML LIQUID PO ×2 (08:56→13:32)
[2024-03-30] MEDS: Ascorbic Acid 500 MG Tablet 1000 MG PO ×2 (08:57→13:32)
[2024-03-30] MEDS: Senna/Docusate Sodium 1 Tablet 2 TABLET PO (08:58)
[2024-03-30] MEDS: Cholecalciferol (VIT D3) 25 MCG TABLET (1,000 UNITS) 50 MCG PO (08:58)
[2024-03-30] MEDS: Ceftriaxone 1 GM/50 ML BAG IV (09:01)
--- NOTE | 2024-03-30 10:53 | CASEMGMT ---
Addendum entered by Vicenta Ruiz 03/30/24 13:19: Social Work Pt's spouse called in and gave SNF choices. 1. [facility] 2. [place] 3. [place]. Referral sent via email to [facility] in TCU. Pt will need precert prior to dc. Pt here through the weekend. Plan: TCU, pending acceptance and precert SUMA Jarvis Original Note: Social Work SW met with pt's spouse to discuss discharge planning. Pt states he and dgt feel pt will need short term rehab prior to returning home. A list of SNF providers including quality and resource use data and consistent with the patient?s preferred geographic region, medical needs, and insurance network were provided from the [employer] Guide. Spouse would like to review list with dgt and make choices however, dgt not available today. SW requested that three choices be made and SW will follow up on Monday morning for choices and will make referrals at that time. SUMA Jarvis
--- NOTE | 2024-03-30 12:49 | PCM.PN.HOSP ---
Reason for Visit Reason for Visit: Diagnoses Parkinson's disease (03/28/24) Parkinson's disease with dyskinesia, with fluctuations (03/28/24) Pneumonia, unspecified organism (03/28/24) Hypoxemia (03/28/24) Wedge compression fracture of first lumbar vertebra, initial encounter for closed fracture (03/28/24) Other mechanical complication of implanted electronic neurostimulator of brain electrode (lead), initial encounter (03/28/24) Other mechanical complication of implanted electronic neurostimulator of brain electrode (lead), sequela (03/28/24) Fall on same level from slipping, tripping and stumbling without subsequent striking against object, initial encounter (03/28/24) Objective Data Objective Data Vital Signs: Vital Signs Temp Pulse Resp BP Pulse Ox O2 Del Method O2 Flow Rate 97.7 F L 76 16 121/76 H 89 Nasal Cannula 2 03/30/24 05:32 03/30/24 06:55 03/30/24 06:55 03/30/24 05:32 03/30/24 10:15 03/30/24 05:32 03/30/24 10:41 Oxygen Flow Rate (L/min) 2 Oxygen Delivery Method Nasal Cannula Weight: 115 lb 11.883 oz Body Mass Index (BMI) 22.6 Intake & Output: Intake and Output for Last 24 Hours 03/28/24 03/29/24 03/30/24 23:59 23:59 23:59 Intake Total 2496.67 / 2496.67 3082.5 / 3082.5 695 / 695 Output Total 700 / 700 500 / 500 600 / 600 Balance 1796.67 / 1796.67 2582.5 / 2582.5 95 / 95 Lab / Micro Data 03/27/24 22:24 03/27/24 22:24 Micro: Microbiology 03/28/24 04:05 Mucosa - Nasopharyngeal Respiratory Panel (PCR) - Final 03/28/24 03:30 Urine, Clean Catch Legionella Antigen - Final 03/28/24 03:30 Urine, Clean Catch Streptococcus pneumoniae Antigen (M - Final Rhythm Strip Rhythm Strip: Sinus Rhythm Rate: 80 Ectopy: None Physical Exam Narrative Seen and examined. She is sitting upright on the chair. Complained that her pain is better than last few days. Patient has memory lapses probably chronic dementia. No fever. Denies cough or sputum production, shortness of breath. 95% on room air Physical exam General: Alert, Oriented x3, Cooperative HEENT: Atraumatic, PERRLA, EOMI, Normocephalic Oral: Oral mucosa moist. No Gingival or Mucosal Lesions/ Ulcerations Neck: Supple, No JVD, Negative Carotid Bruits Chest wall/Lungs: Air entry diminished in bilateral lung bases. No crepitation/rhonchi Cardiovascular: Regular rate, Regular Rhythm, Normal S1, Normal S2, No M/G/R Abdomen: Bowel Sounds Present, Soft, Non Tender, Non-Distended : No dysuria. No renal angle tenderness. No suprapubic tenderness. Extremities: No edema, Capillary Refill Less than 3 Seconds Skin: No rashes, No breakdown Musculoskeletal: No Tenderness to Palpation of Joints or Extremities. Bilateral knee and hip arthritis. Spine: Mild tenderness present over L1 vertebral and paraspinal muscle. ROM restricted of lumbar spine. Neurological: Cranial nerves II-XII grossly intact, DTR 2+/4. No acute focal neurological deficit. Psych/Mental Status: Flat affect, dementia. Assessment & Plan Assessment/Plan (1) Closed compression fracture of L1 vertebra: QUALIFIERS: Encounter type: initial encounter Qualified Code(s): S32.010A - Wedge compression fracture of first lumbar vertebra, initial encounter for closed fracture (2) Fall from slipping on wet surface: QUALIFIERS: Encounter type: initial encounter Qualified Code(s): W01.0XXA - Fall on same level from slipping, tripping and stumbling without subsequent striking against object, initial encounter (3) Pneumonia of both lower lobes: QUALIFIERS: Pneumonia type: due to unspecified organism Qualified Code(s): J18.9 - Pneumonia, unspecified organism (4) Hypoxemia: (5) Parkinson's disease: QUALIFIERS: Dyskinesia presence: with dyskinesia Fluctuating manifestations: with fluctuating manifestations Qualified Code(s): G20.B2 - Parkinson's disease with dyskinesia, with fluctuations (6) Mechanical complication of deep brain stimulator: QUALIFIERS: Encounter type: sequela Qualified Code(s): T85.190S - Other mechanical complication of implanted electronic neurostimulator of brain electrode (lead), sequela PLAN: Plan 78-year-old female was admitted after mechanical fall and is found to have L1 wedge compression fracture. 1. L1 wedge compression fracture after mechanical fall at home in the setting of known osteoporosis - Admit to general medical floor. Place Lidoderm patch and give Tylenol as needed for [id number] (level 1-5 out of 10) pain or fever. IV morphine 2 mg for severe pain. CT of lumbar spine individually reviewed and shows acute wedge compression fracture of L1 vertebra. Cannot have MRI because she has a pacemaker. Pain management Dr. Olu Gagnon consulted. Orthospine Dr. Gerald Disla is also consulted. On a stool softener as patient is on morphine. 03/30: Patient states that her pain is better, sitting on the chair. She has not had a bowel movement last 2 to 3 days. I talked with the orthospine doctor Dr. Disla metastatic cyst pain is better therefore we will evaluate the patient as an outpatient to further decide kyphoplasty as an outpatient procedure 2. Leukocytosis may be inflammatory from compression fracture: CTA negative for PE. Airspace opacity in bilateral lung bases without air bronchograms most likely bibasilar atelectasis. Discussed with the patient and her and patient does not have new signs and symptoms of pneumonia like cough, sputum production or fever. leukocytosis of 14.3 present on admission: Urinary antigens are negative. Respiratory panel negative. Empirically on IV ceftriaxone and Zithromax. Discontinue Zithromax. 03/30: Hypoxia resolved. Labs ordered. I talked to the patient and gave my clinical impression of L1 compression fracture along with the radiological findings. I said adipocyte and may be due to fall and compression fracture of L1 vertebra. Empirically on IV antibiotic but clinically she does not seem to have pneumonia. 3. Parkinson's disease; with previous mechanical complication of deep brain stimulator and chronically poor balance and mobility compounding #1 & #2 - Continue Parkinson's medication as previous. PT/OT and case management consult and treat in case patient will require ECF for subacute rehabilitation with help appreciated in advance. 4. Acute metabolic encephalopathy probably from pain - Continue supportive care outlined above and monitor for improvement. 03/30 : Metabolic encephalopathy resolved. TSH, folic acid. Serum alcohol level normal. Patient has dementia. 5. Hyperlipidemia - Resume statin as previous. 6. Hypothyroidism - Continue Synthroid at current dose and check TSH. 7. Former history of tobacco abuse - Noted. 8. Depression with anxiety - Resume current regimen. 9. GERD - Continue PPI. 10. Osteoarthritis; s/p Left total hip replacement - Noted with no evidence of acute fracture or dislocation on x-rays in ER this admission. 11. DVT prophylaxis - Lovenox 40 mg subcu daily. Clinical Impression(s) from Imaging Studies Brain CT 03/27/24 22:04 IMPRESSION: No acute intracranial pathology of the brain. Electronically Signed: Lokesh VitaleDO at 23:34 EDT , Chest X-Ray 03/27/24 23:05 IMPRESSION: Mild right basilar atelectasis. Electronically Signed: Lokesh Vitale DO at 23:35 EDT , Hip/Pelvis X-Ray 03/27/24 23:05 IMPRESSION: No evidence of displaced pelvic or hip fracture. Electronically Signed: Lokesh Vitale DO at 23:37 EDT , Lumbar Spine X-Ray 03/27/24 23:05 IMPRESSION: Wedge compression of L1. Electronically Signed: Lokesh Vitale DO at 23:39 EDT , Lumbar Spine CT 03/28/24 02:38 IMPRESSION: There is acute/subacute compression fracture of L1 with 30% decreased height of the vertebral body. There is a nonobstructive stone in the right kidney measures 8 mm. Electronically Signed: Opal Earl MD at 6:40 EDT , Chest CTA 03/28/24 23:45 IMPRESSION: Bibasilar pneumonia. No demonstrated pulmonary embolism or arterial dissection. Electronically Signed: Opal Earl MD at 1:10 EDT , Chest X-Ray 03/29/24 05:59 IMPRESSION: Lower lung atelectasis or infiltrate. Electronically Signed: Andre Butler MD at 8:41 EDT , Charges/Coding Visit Charges Inpatient E&M: 29643 Subs Hosp L2
[2024-03-30] MEDS: Bisacodyl 5 MG Tablet 10 MG PO (13:31)
[2024-03-30 13:35] LABS: Absolute Lymphocyte Count 1.64 X10^3/uL (0.83-4.51); Absolute Neutrophil Count 6.4 X10^3/uL (2.0-7.7); Basophil# 0.08 X10^3/uL; Basophil% 0.9 % (0-1); Eosinophil# 0.24 X10^3/uL; Eosinophils% 2.6 % (0-5); Hematocrit 36.6 % (37-47); Hemoglobin 11.7 g/dL (12.0-15.0); Lymphocyte # 1.64 X10^3/ul (0.83-4.51); Lymphocyte % 17.8 % (19-41); Mean Corpuscular Hgb 27.3 pg (27.0-32.0); Mean Corpuscular Volume 85.5 fL (81-99); Mean Platelet Vol. 8.6 fl (6.2-12.0); Monocyte# 0.83 X10^3/uL; NRBC Flagged by Analyzer 0 % (0-5); Neutrophil % 69.4 % (47-70); Platelet Count 309 K/mm3 (150-450); RBC Distribution Width CV 16.7 % (11.6-14.6); RBC Distribution Width SD 51.8 fl (35.1-43.9); Red Blood Count 4.28 M/mm3 (4.2-5.4); White Blood Count 9.2 K/mm3 (4.4-11.0)
[2024-03-30 13:52] LABS: Anion Gap 8 (5-15); BUN 6 mg/dL (7-18); BUN/Creat Ratio 10.6 RATIO (10-20); Calcium,Total 8.6 mg/dL (8.5-10.1); Chloride 105 mmol/L (98-107); Creatinine, Serum 0.56 mg/dL (0.55-1.02); EST Glomerular Filtration Rate 110 mL/min (>60); Est Glom Filt Rate - Afr Amer 133 mL/min (>60); Estimated Creatinine Clearance 41.63 ml/min; Glucose 144 mg/dL (74-106); Potassium 2.8 mmol/L (3.5-5.1); Sodium Level 138 mmol/L (136-145)
[2024-03-30 15:25] LABS: Phosphorus 2.7 mg/dL (2.5-4.9)
[2024-03-30] MEDS: Potassium Chloride Oral Soln 20 MEQ/15 ML UDC 40 MEQ PO ×2 (18:25→20:30)
[2024-03-30] MEDS: Atorvastatin Calcium 80 MG Tablet PO (20:32)
[2024-03-30] MEDS: PIMAVANSERIN TARTRATE 34 MG PO (20:33)
[2024-03-31] VITALS (8 sets, daily range): BP systolic 115–129; BP diastolic 65–88; PULSE 82–98; RESP 16–24; TEMP 36.5–36.8; O2SAT 91–95
[2024-03-31] MEDS: Ipratropium/Albuterol Sulfate 3 ML AMPUL.NEB INHALATION ×4 (01:40→19:19)
[2024-03-31] MEDS: Potassium Chloride Oral Soln 20 MEQ/15 ML UDC 40 MEQ PO (02:33)
[2024-03-31] MEDS: Levothyroxine 50 MCG Tablet PO (05:13)
[2024-03-31 06:33] LABS: Anion Gap 7 (5-15); BUN 7 mg/dL (7-18); BUN/Creat Ratio 13.2 RATIO (10-20); Calcium,Total 8.8 mg/dL (8.5-10.1); Chloride 109 mmol/L (98-107); Creatinine, Serum 0.53 mg/dL (0.55-1.02); EST Glomerular Filtration Rate 118 mL/min (>60); Est Glom Filt Rate - Afr Amer 143 mL/min (>60); Estimated Creatinine Clearance 41.63 ml/min; Glucose 156 mg/dL (74-106); Potassium 4.4 mmol/L (3.5-5.1); Sodium Level 138 mmol/L (136-145)
[2024-03-31] MEDS: Lactobacillis Acidophilus 2 CAP PO ×2 (09:07→20:18)
[2024-03-31] MEDS: Fluoxetine HCl 40 MG CAPSULE PO (09:08)
[2024-03-31] MEDS: Ascorbic Acid 500 MG Tablet 1000 MG PO ×2 (09:08→17:32)
[2024-03-31] MEDS: Cholecalciferol (VIT D3) 25 MCG TABLET (1,000 UNITS) 50 MCG PO (09:09)
--- NOTE | 2024-03-31 09:50 | PCM.PN.HOSP ---
Reason for Visit Reason for Visit: Diagnoses Parkinson's disease (03/28/24) Parkinson's disease with dyskinesia, with fluctuations (03/28/24) Pneumonia, unspecified organism (03/28/24) Hypoxemia (03/28/24) Wedge compression fracture of first lumbar vertebra, initial encounter for closed fracture (03/28/24) Other mechanical complication of implanted electronic neurostimulator of brain electrode (lead), initial encounter (03/28/24) Other mechanical complication of implanted electronic neurostimulator of brain electrode (lead), sequela (03/28/24) Fall on same level from slipping, tripping and stumbling without subsequent striking against object, initial encounter (03/28/24) Objective Data Objective Data Vital Signs: Vital Signs Temp Pulse Resp BP Pulse Ox O2 Del Method O2 Flow Rate 98 F 90 18 129/88 H 92 Nasal Cannula 2 03/31/24 08:57 03/31/24 08:57 03/31/24 08:57 03/31/24 08:57 03/31/24 08:57 03/31/24 08:59 03/31/24 08:57 Oxygen Flow Rate (L/min) 2 Oxygen Delivery Method Nasal Cannula Weight: 115 lb 11.883 oz Body Mass Index (BMI) 22.6 Intake & Output: Intake and Output for Last 24 Hours 03/29/24 03/30/24 03/31/24 23:59 23:59 23:59 Intake Total 3082.5 / 3082.5 2398 / 2398 Output Total 500 / 500 900 / 1350 650 / 650 Balance 2582.5 / 2582.5 1498 / 1048 -650 / -650 Lab / Micro Data 03/30/24 13:20 03/31/24 05:24 Labs: Laboratory Results - last 24 hr 03/30/24 13:20: WBC 9.2, RBC 4.28, Hgb 11.7 L, Hct 36.6 L, MCV 85.5, MCH 27.3, MCHC 32.0, RDW Std Deviation 51.8 H, RDW Coeff of Su 16.7 H, Plt Count 309, MPV 8.6, Immature Gran % (Auto) 0.300, Neut % (Auto) 69.4, Lymph % (Auto) 17.8 L, [place] % (Auto) 9.0, Eos % (Auto) 2.6, Baso % (Auto) 0.9, Absolute Neuts (auto) 6.4, Absolute Lymphs (auto) 1.64, Nucleated RBC % 0, Sodium 138, Potassium 2.8 L, Chloride 105, Carbon Dioxide 25.0, Anion Gap 8, BUN 6 L, Creatinine 0.56, Estim Creat Clear Calc 41.63, Est GFR (MDRD) Af Amer 133, Est GFR (MDRD) Non-Af 110, BUN/Creatinine Ratio 10.6, Glucose 144 H, Calcium 8.6, Phosphorus 2.7, Magnesium 2.0 03/31/24 05:24: Sodium 138, Potassium 4.4, Chloride 109 H, Carbon Dioxide 22.0, Anion Gap 7, BUN 7, Creatinine 0.53 L, Estim Creat Clear Calc 41.63, Est GFR (MDRD) Af Amer 143, Est GFR (MDRD) Non-Af 118, BUN/Creatinine Ratio 13.2, Glucose 156 H, Calcium 8.8 Micro: Microbiology 03/28/24 04:05 Mucosa - Nasopharyngeal Respiratory Panel (PCR) - Final 03/28/24 03:30 Urine, Clean Catch Legionella Antigen - Final 03/28/24 03:30 Urine, Clean Catch Streptococcus pneumoniae Antigen (M - Final Rhythm Strip Rhythm Strip: Sinus Rhythm Rate: 80 Ectopy: None Physical Exam Narrative Seen and examined. Patient sitting on the bed. Her near the bedside is states she is not making sense. She seems more confused/disoriented. History of dementia Had bowel movement 1 day before yesterday Physical exam General: Awake, cooperative, pleasantly confused. Disoriented HEENT: Atraumatic, PERRLA, EOMI, Normocephalic Oral: Oral mucosa moist. No Gingival or Mucosal Lesions/ Ulcerations Neck: Supple, No JVD, Negative Carotid Bruits Chest wall/Lungs: Air entry diminished in bilateral lung bases. No crepitation/rhonchi Cardiovascular: Regular rate, Regular Rhythm, Normal S1, Normal S2, No M/G/R Abdomen: Bowel Sounds Present, Soft, Non Tender, Non-Distended : No dysuria. No renal angle tenderness. No suprapubic tenderness. Extremities: No edema, Capillary Refill Less than 3 Seconds Skin: No rashes, No breakdown Musculoskeletal: No Tenderness to Palpation of Joints or Extremities. Bilateral knee and hip arthritis. Spine: Mild tenderness present over L1 vertebral and paraspinal muscle. ROM restricted of lumbar spine. Neurological: Cranial nerves II-XII grossly intact, DTR 2+/4. No acute focal neurological deficit. Psych/Mental Status: Flat affect, dementia. Assessment & Plan Assessment/Plan (1) Closed compression fracture of L1 vertebra: QUALIFIERS: Encounter type: initial encounter Qualified Code(s): S32.010A - Wedge compression fracture of first lumbar vertebra, initial encounter for closed fracture (2) Fall from slipping on wet surface: QUALIFIERS: Encounter type: initial encounter Qualified Code(s): W01.0XXA - Fall on same level from slipping, tripping and stumbling without subsequent striking against object, initial encounter (3) Pneumonia of both lower lobes: QUALIFIERS: Pneumonia type: due to unspecified organism Qualified Code(s): J18.9 - Pneumonia, unspecified organism (4) Hypoxemia: (5) Parkinson's disease: QUALIFIERS: Dyskinesia presence: with dyskinesia Fluctuating manifestations: with fluctuating manifestations Qualified Code(s): G20.B2 - Parkinson's disease with dyskinesia, with fluctuations (6) Mechanical complication of deep brain stimulator: QUALIFIERS: Encounter type: sequela Qualified Code(s): T85.190S - Other mechanical complication of implanted electronic neurostimulator of brain electrode (lead), sequela PLAN: Plan 78-year-old female was admitted after mechanical fall and is found to have L1 wedge compression fracture. 1. L1 wedge compression fracture after mechanical fall at home in the setting of known osteoporosis - Admit to general medical floor. Place Lidoderm patch and give Tylenol as needed for [id number] (level 1-5 out of 10) pain or fever. IV morphine 2 mg for severe pain. CT of lumbar spine individually reviewed and shows acute wedge compression fracture of L1 vertebra. Cannot have MRI because she has a pacemaker. Pain management Dr. Olu Gagnon consulted. Orthospine Dr. Gerald Disla is also consulted. On a stool softener as patient is on morphine. 03/30: Patient states that her pain is better, sitting on the chair. She has not had a bowel movement last 2 to 3 days. I talked with the orthospine doctor Dr. Disla metastatic cyst pain is better therefore we will evaluate the patient as an outpatient to further decide kyphoplasty as an outpatient procedure 03/31: Because of confusion disorientation, lidocaine and opioid discontinued. Yesterday morphine was discontinued. On Zanaflex and Toradol for pain control and muscle spasm respectively. 2. Leukocytosis may be inflammatory from compression fracture: CTA negative for PE. Airspace opacity in bilateral lung bases without air bronchograms most likely bibasilar atelectasis. Discussed with the patient and her and patient does not have new signs and symptoms of pneumonia like cough, sputum production or fever. leukocytosis of 14.3 present on admission: Urinary antigens are negative. Respiratory panel negative. Empirically on IV ceftriaxone and Zithromax. Discontinue Zithromax. 03/30: Hypoxia resolved. Labs ordered. I talked to the patient and gave my clinical impression of L1 compression fracture along with the radiological findings. I said adipocyte and may be due to fall and compression fracture of L1 vertebra. Empirically on IV antibiotic but clinically she does not seem to have pneumonia. 3. Parkinson's disease; with previous mechanical complication of deep brain stimulator and chronically poor balance and mobility compounding #1 & #2 - Continue Parkinson's medication as previous. PT/OT and case management consult and treat in case patient will require ECF for subacute rehabilitation with help appreciated in advance. 4. Acute metabolic encephalopathy probably from pain - Continue supportive care outlined above and monitor for improvement. 03/30 : Metabolic encephalopathy resolved. TSH, folic acid. Serum alcohol level normal. Patient has dementia. 5. Hyperlipidemia - Resume statin as previous. 6. Hypothyroidism - Continue Synthroid at current dose and check TSH. 7. Former history of tobacco abuse - Noted. 8. Depression with anxiety - Resume current regimen. 9. GERD - Continue PPI. 10. Osteoarthritis; s/p Left total hip replacement - Noted with no evidence of acute fracture or dislocation on x-rays in ER this admission. 11. DVT prophylaxis - Lovenox 40 mg subcu daily. 12. Constipation: Patient BM 1 day before yesterday. On lactulose and senna S. Clinical Impression(s) from Imaging Studies Brain CT 03/27/24 22:04 IMPRESSION: No acute intracranial pathology of the brain. Electronically Signed: Lokesh Vitale DO at 23:34 EDT , Chest X-Ray 03/27/24 23:05 IMPRESSION: Mild right basilar atelectasis. Electronically Signed: Lokesh Vitale DO at 23:35 EDT , Hip/Pelvis X-Ray 03/27/24 23:05 IMPRESSION: No evidence of displaced pelvic or hip fracture. Electronically Signed: Lokesh Vitale at 23:37 EDT , Lumbar Spine X-Ray 03/27/24 23:05 IMPRESSION: Wedge compression of L1. Electronically Signed: Lokesh VitaleDO at 23:39 EDT , Lumbar Spine CT 03/28/24 02:38 IMPRESSION: There is acute/subacute compression fracture of L1 with 30% decreased height of the vertebral body. There is a nonobstructive stone in the right kidney measures 8 mm. Electronically Signed: Opal Earl MD at 6:40 EDT , Chest CTA 03/28/24 23:45 IMPRESSION: Bibasilar pneumonia. No demonstrated pulmonary embolism or arterial dissection. Electronically Signed: Opal Earl MD at 1:10 EDT , Chest X-Ray 03/29/24 05:59 IMPRESSION: Lower lung atelectasis or infiltrate. Electronically Signed: Andre Butler MD at 8:41 EDT , Charges/Coding Visit Charges Inpatient E&M: 40648 Subs Hosp L2
[2024-03-31] MEDS: Zinc Sulfate 50 mg zinc (220 mg) ORAL capsule PO (10:35)
[2024-03-31] MEDS: Pantoprazole Sodium 20 MG Tablet PO (10:36)
[2024-03-31] MEDS: guaiFENesin 1,200 MG Tablet 1200 MG PO ×2 (10:36→20:18)
[2024-03-31] MEDS: Ensure Plus High Protein 120 ML LIQUID PO ×4 (10:40→20:20)
[2024-03-31] MEDS: Senna/Docusate Sodium 1 Tablet 2 TABLET PO (10:41)
[2024-03-31] MEDS: 0.9% Saline Lock 10 ML Syringe IV ×2 (10:43→12:17)
[2024-03-31] MEDS: Ceftriaxone 1 GM/50 ML BAG IV (10:43)
[2024-03-31] MEDS: Lactulose 20 GM/30 ML UDC 10 GM PO (12:20)
[2024-03-31] MEDS: Acetaminophen 325 MG Tablet 650 MG PO ×2 (13:23→20:18)
--- NOTE | 2024-03-31 15:56 | PN.HOSP_ITS ---
Reason for Visit Reason for Visit: Diagnoses Parkinson's disease (03/28/24) Parkinson's disease with dyskinesia, with fluctuations (03/28/24) Pneumonia, unspecified organism (03/28/24) Hypoxemia (03/28/24) Wedge compression fracture of first lumbar vertebra, initial encounter for closed fracture (03/28/24) Other mechanical complication of implanted electronic neurostimulator of brain electrode (lead), initial encounter (03/28/24) Other mechanical complication of implanted electronic neurostimulator of brain electrode (lead), sequela (03/28/24) Fall on same level from slipping, tripping and stumbling without subsequent striking against object, initial encounter (03/28/24) Objective Data Objective Data Vital Signs: Vital Signs Temp Pulse Resp BP Pulse Ox O2 Del Method O2 Flow Rate 98 F 94 18 129/88 H 92 Nasal Cannula 2 03/31/24 08:57 03/31/24 13:32 03/31/24 13:32 03/31/24 08:57 03/31/24 08:57 03/31/24 08:59 03/31/24 14:03 Oxygen Flow Rate (L/min) 2 Oxygen Delivery Method Nasal Cannula Weight: 115 lb 11.883 oz Body Mass Index (BMI) 22.6 Intake & Output: Intake and Output for Last 24 Hours 03/29/24 03/30/24 03/31/24 23:59 23:59 23:59 Intake Total 3082.5 / 3082.5 2398 / 2398 400 / 400 Output Total 500 / 500 900 / 1350 650 / 650 Balance 2582.5 / 2582.5 1498 / 1048 -250 / -250 Lab / Micro Data 03/30/24 13:20 03/31/24 05:24 Labs: Laboratory Results - last 24 hr 03/31/24 05:24: Sodium 138, Potassium 4.4, Chloride 109 H, Carbon Dioxide 22.0, Anion Gap 7, BUN 7, Creatinine 0.53 L, Estim Creat Clear Calc 41.63, Est GFR (MDRD) Af Amer 143, Est GFR (MDRD) Non-Af 118, BUN/Creatinine Ratio 13.2, G lucose 156 H, Calcium 8.8 Micro: Microbiology 03/28/24 04:05 Mucosa - Nasopharyngeal Respiratory Panel (PCR) - Final 03/28/24 03:30 Urine, Clean Catch Legionella Antigen - Final 03/28/24 03:30 Urine, Clean Catch Streptococcus pneumoniae Antigen (M - Final Rhythm Strip Rhythm Strip: Sinus Rhythm Rate: 80 Ectopy: None Physical Exam Narrative Seen and examined. Patient sitting on the bed. Her near the bedside is states she is not making sense. She seems more confused/disoriented. History of dementia Physical exam General: Awake, cooperative, pleasantly confused. Disoriented HEENT: Atraumatic, PERRLA, EOMI, Normocephalic Oral: Oral mucosa moist. No Gingival or Mucosal Lesions/ Ulcerations Neck: Supple, No JVD, Negative Carotid Bruits Chest wall/Lungs: Air entry diminished in bilateral lung bases. No crepitation/rhonchi Cardiovascular: Regular rate, Regular Rhythm, Normal S1, Normal S2, No M/G/R Abdomen: Bowel Sounds Present, Soft, Non Tender, Non-Distended : No dysuria. No renal angle tenderness. No suprapubic tenderness. Extremities: No edema, Capillary Refill Less than 3 Seconds Skin: No rashes, No breakdown Musculoskeletal: No Tenderness to Palpation of Joints or Extremities. Bilateral knee and hip arthritis. Spine: Mild tenderness present over L1 vertebral and paraspinal muscle. ROM restricted of lumbar spine. Neurological: Cranial nerves II-XII grossly intact, DTR 2+/4. No acute focal neurological deficit. Psych/Mental Status: Flat affect, dementia. Assessment & Plan Assessment/Plan (1) Closed compression fracture of L1 vertebra: QUALIFIERS: Encounter type: initial encounter Qualified Code(s): S32.010A - Wedge compression fracture of first lumbar vertebra, initial encounter for closed fracture (2) Fall from slipping on wet surface: QUALIFIERS: Encounter type: initial encounter Qualified Code(s): W01.0XXA - Fall on same level from slipping, tripping and stumbling without subsequent striking against object, initial encounter (3) Pneumonia of both lower lobes: QUALIFIERS: Pneumonia type: due to unspecified organism Qualified Code(s): J18.9 - Pneumonia, unspecified organism (4) Hypoxemia: (5) Parkinson's disease: QUALIFIERS: Dyskinesia presence: with dyskinesia Fluctuating manifestations: with fluctuating manifestations Qualified Code(s): G20.B2 - Parkinson's disease with dyskinesia, with fluctuations (6) Mechanical complication of deep brain stimulator: QUALIFIERS: Encounter type: sequela Qualified Code(s): T85.190S - Other mechanical complication of implanted electronic neurostimulator of brain electrode (lead), sequela PLAN: Plan 78-year-old female was admitted after mechanical fall and is found to have L1 wedge compression fracture. 1. L1 wedge compression fracture after mechanical fall at home in the setting of known osteoporosis - Admit to general medical floor. Place Lidoderm patch and give Tylenol as needed for [id number] (level 1-5 out of 10) pain or fever. IV morphine 2 mg for severe pain. CT of lumbar spine individually reviewed and shows acute wedge compression fracture of L1 vertebra. Cannot have MRI because she has a pacemaker. Pain management Dr. Olu Gagnon consulted. [facility] Dr. Gerald Disla is also consulted. On a stool softener as patient is on morphine. 03/30: Patient states that her pain is better, sitting on the chair. She has not had a bowel movement last 2 to 3 days. I talked with the orthospine doctor Dr. Disla metastatic cyst pain is better therefore we will evaluate the patient as an outpatient to further decide kyphoplasty as an outpatient procedure 03/31: Because of confusion disorientation, lidocaine and opioid discontinued. Yesterday morphine was discontinued. On Zanaflex and Toradol for pain control and muscle spasm respectively. 2. Leukocytosis may be inflammatory from compression fracture: CTA negative for PE. Airspace opacity in bilateral lung bases without air bronchograms most likely bibasilar atelectasis. Discussed with the patient and her and patient does not have new signs and symptoms of pneumonia like cough, sputum production or fever. leukocytosis of 14.3 present on admission: Urinary antigens are negative. Respiratory panel negative. Empirically on IV ceftriaxone and Zithromax. Discontinue Zithromax. 03/30: Hypoxia resolved. Labs ordered. I talked to the patient and gave my clinical impression of L1 compression fracture along with the radiological findings. I said adipocyte and may be due to fall and compression fracture of L1 vertebra. Empirically on IV antibiotic but clinically she does not seem to have pneumonia. 3. Parkinson's disease; with previous mechanical complication of deep brain stimulator and chronically poor balance and mobility compounding #1 & #2 - Continue Parkinson's medication as previous. PT/OT and case management consult and treat in case patient will require ECF for subacute rehabilitation with help appreciated in advance. 4. Acute metabolic encephalopathy probably from pain - Continue supportive care outlined above and monitor for improvement. 03/30 : Metabolic encephalopathy resolved. TSH, folic acid. Serum alcohol level normal. Patient has dementia. 5. Hyperlipidemia - Resume statin as previous. 6. Hypothyroidism - Continue Synthroid at current dose and check TSH. 7. Former history of tobacco abuse - Noted. 8. Depression with anxiety - Resume current regimen. 9. GERD - Continue PPI. 10. Osteoarthritis; s/p Left total hip replacement - Noted with no evidence of acute fracture or dislocation on x-rays in ER this admission. 11. DVT prophylaxis - Lovenox 40 mg subcu daily. 12. Constipation: Patient BM 1 day before yesterday. On lactulose and senna S. Clinical Impression(s) from Imaging Studies Brain CT 03/27/24 22:04 IMPRESSION: No acute intracranial pathology of the brain. Electronically Signed: Lokesh Vitale DO at 23:34 EDT , Chest X-Ray 03/27/24 23:05 IMPRESSION: Mild right basilar atelectasis. Electronically Signed: Lokesh Vitale DO at 23:35 EDT , Hip/Pelvis X-Ray 03/27/24 23:05 IMPRESSION: No evidence of displaced pelvic or hip fracture. Electronically Signed: Lokesh Vitale DO at 23:37 EDT , Lumbar Spine X-Ray 03/27/24 23:05 IMPRESSION: Wedge compression of L1. Electronically Signed: Lokesh Vitale DO at 23:39 EDT , Lumbar Spine CT 03/28/24 02:38 IMPRESSION: There is acute/subacute compression fracture of L1 with 30% decreased height of the vertebral body. There is a nonobstructive stone in the right kidney measures 8 mm. Electronically Signed: Opal Earl MD at 6:40 EDT , Chest CTA 03/28/24 23:45 IMPRESSION: Bibasilar pneumonia. No demonstrated pulmonary embolism or arterial dissection. Electronically Signed: Opal Earl MD at 1:10 EDT , Chest X-Ray 03/29/24 05:59 IMPRESSION: Lower lung atelectasis or infiltrate. Electronically Signed: Andre Butler MD at 8:41 EDT ,
[2024-03-31] MEDS: Atorvastatin Calcium 80 MG Tablet PO (20:18)
[2024-03-31] MEDS: PIMAVANSERIN TARTRATE 34 MG PO (20:18)
[2024-04-01] VITALS (8 sets, daily range): BP systolic 102–124; BP diastolic 62–72; PULSE 83–100; RESP 16–18; TEMP 36.6–36.8; O2SAT 92–97
[2024-04-01] MEDS: Ipratropium/Albuterol Sulfate 3 ML AMPUL.NEB INHALATION ×3 (01:40→19:35)
[2024-04-01] MEDS: Levothyroxine 50 MCG Tablet PO (05:53)
[2024-04-01] MEDS: Lactobacillis Acidophilus 2 CAP PO ×2 (08:53→23:01)
[2024-04-01] MEDS: Acetaminophen 325 MG Tablet 650 MG PO ×3 (08:53→23:02)
[2024-04-01] MEDS: Ascorbic Acid 500 MG Tablet 1000 MG PO ×2 (08:54→18:16)
[2024-04-01] MEDS: Multivitamins,Therapeutic Tablet 1 TABLET PO (08:54)
[2024-04-01] MEDS: Fluoxetine HCl 40 MG CAPSULE PO (09:50)
[2024-04-01] MEDS: Pantoprazole Sodium 20 MG Tablet PO (09:51)
[2024-04-01] MEDS: Zinc Sulfate 50 mg zinc (220 mg) ORAL capsule PO (09:51)
[2024-04-01] MEDS: guaiFENesin 1,200 MG Tablet 1200 MG PO ×2 (09:52→23:02)
[2024-04-01] MEDS: Cholecalciferol (VIT D3) 25 MCG TABLET (1,000 UNITS) 50 MCG PO (09:53)
[2024-04-01] MEDS: Ensure Plus High Protein 120 ML LIQUID PO ×4 (09:55→23:02)
--- NOTE | 2024-04-01 12:13 | PCM.PN.HOSP ---
Reason for Visit Reason for Visit: Diagnoses Parkinson's disease (03/28/24) Parkinson's disease with dyskinesia, with fluctuations (03/28/24) Pneumonia, unspecified organism (03/28/24) Hypoxemia (03/28/24) Wedge compression fracture of first lumbar vertebra, initial encounter for closed fracture (03/28/24) Other mechanical complication of implanted electronic neurostimulator of brain electrode (lead), initial encounter (03/28/24) Other mechanical complication of implanted electronic neurostimulator of brain electrode (lead), sequela (03/28/24) Fall on same level from slipping, tripping and stumbling without subsequent striking against object, initial encounter (03/28/24) Objective Data Objective Data Vital Signs: Vital Signs Temp Pulse Resp BP Pulse Ox O2 Del Method O2 Flow Rate 98.3 F 99 18 105/72 92 Nasal Cannula 2 04/01/24 09:47 04/01/24 09:47 04/01/24 09:47 04/01/24 09:47 04/01/24 11:31 04/01/24 09:47 04/01/24 11:31 Oxygen Flow Rate (L/min) 2 Oxygen Delivery Method Nasal Cannula Weight: 115 lb 11.883 oz Body Mass Index (BMI) 22.6 Intake & Output: Intake and Output for Last 24 Hours 03/30/24 03/31/24 04/01/24 23:59 23:59 23:59 Intake Total 2398 / 2398 750 / 750 Output Total 900 / 1350 650 / 650 Balance 1498 / 1048 100 / 100 Lab / Micro Data 03/30/24 13:20 03/31/24 05:24 Micro: Microbiology 03/28/24 04:05 Mucosa - Nasopharyngeal Respiratory Panel (PCR) - Final 03/28/24 03:30 Urine, Clean Catch Legionella Antigen - Final 03/28/24 03:30 Urine, Clean Catch Streptococcus pneumoniae Antigen (M - Final Rhythm Strip Rhythm Strip: Sinus Rhythm Rate: 80 Ectopy: None Physical Exam Narrative Seen and examined. Patient sitting on the bed. Her stated that the patient is more oriented and talking better and making sense after opoid discontinued yesterday Physical exam General: Awake, cooperative,oriented to time and person. coherent speech HEENT: Atraumatic, PERRLA, EOMI, Normocephalic Oral: Oral mucosa moist. No Gingival or Mucosal Lesions/ Ulcerations Neck: Supple, No JVD, Negative Carotid Bruits Chest wall/Lungs: Air entry diminished in bilateral lung bases. No crepitation/rhonchi Cardiovascular: Regular rate, Regular Rhythm, Normal S1, Normal S2, No M/G/R Abdomen: Bowel Sounds Present, Soft, Non Tender, Non-Distended : No dysuria. No renal angle tenderness. No suprapubic tenderness. Extremities: No edema, Capillary Refill Less than 3 Seconds Skin: No rashes, No breakdown Musculoskeletal: No Tenderness to Palpation of Joints or Extremities. Bilateral knees and hip arthritis. Spine: Mild tenderness present over L1 vertebral and paraspinal muscle. ROM restricted of lumbar spine. Neurological: Cranial nerves II-XII grossly intact, DTR 2+/4. No acute focal neurological deficit. Psych/Mental Status: Flat affect, dementia. Assessment & Plan Assessment/Plan (1) Closed compression fracture of L1 vertebra: (2) Fall from slipping on wet surface: (3) Pneumonia of both lower lobes: (4) Hypoxemia: (5) Parkinson's disease: (6) Mechanical complication of deep brain stimulator: PLAN: Plan 78-year-old female was admitted after mechanical fall and is found to have L1 wedge compression fracture. 1. L1 wedge compression fracture after mechanical fall at home in the setting of known osteoporosis - Admit to general medical floor. Place Lidoderm patch and give Tylenol as needed for [id number] (level 1-5 out of 10) pain or fever. IV morphine 2 mg for severe pain. CT of lumbar spine individually reviewed and shows acute wedge compression fracture of L1 vertebra. Cannot have MRI because she has a pacemaker. Pain management Dr. Olu Gagnon consulted. Orthospine Dr. Gerald Disla is also consulted. On a stool softener as patient is on morphine. 03/30: Patient states that her pain is better, sitting on the chair. She has not had a bowel movement last 2 to 3 days. I talked with the orthospine doctor Dr. Disla metastatic cyst pain is better therefore we will evaluate the patient as an outpatient to further decide kyphoplasty as an outpatient procedure 03/31: Because of confusion disorientation, lidocaine and opioid discontinued. Yesterday morphine was discontinued. On Zanaflex and Toradol for pain control and muscle spasm respectively. 04/01: The patient more alert, speech coherent and making sense. 2. Leukocytosis may be inflammatory from compression fracture: CTA negative for PE. Airspace opacity in bilateral lung bases without air bronchograms most likely bibasilar atelectasis. Discussed with the patient and her and patient does not have new signs and symptoms of pneumonia like cough, sputum production or fever. leukocytosis of 14.3 present on admission: Urinary antigens are negative. Respiratory panel negative. Empirically on IV ceftriaxone and Zithromax. Discontinue Zithromax. 03/30: Hypoxia resolved. Labs ordered. I talked to the patient and gave my clinical impression of L1 compression fracture along with the radiological findings. I said adipocyte and may be due to fall and compression fracture of L1 vertebra. Empirically on IV antibiotic but clinically she does not seem to have pneumonia. 04/01: No acute issues. IV antibioitic discontinued. Pneumonia ruled out 3. Parkinson's disease; with previous mechanical complication of deep brain stimulator and chronically poor balance and mobility compounding #1 & #2 - Continue Parkinson's medication as previous. PT/OT and case management consult and treat in case patient will require ECF for subacute rehabilitation with help appreciated in advance. 4. Acute metabolic encephalopathy probably from pain - Continue supportive care outlined above and monitor for improvement. 03/30 : Metabolic encephalopathy resolved. TSH, folic acid. Serum alcohol level normal. Patient has dementia. 5. Hyperlipidemia - Resume statin as previous. 6. Hypothyroidism - Continue Synthroid at current dose and check TSH. 7. Former history of tobacco abuse - Noted. 8. Depression with anxiety - Resume current regimen. 9. GERD - Continue PPI. 10. Osteoarthritis; s/p Left total hip replacement - Noted with no evidence of acute fracture or dislocation on x-rays in ER this admission. 11. DVT prophylaxis - Lovenox 40 mg subcu daily. 12. Constipation: Patient BM 1 day before yesterday. On lactulose and senna S. Clinical Impression(s) from Imaging Studies Brain CT 03/27/24 22:04 IMPRESSION: No acute intracranial pathology of the brain. Electronically Signed: Lokesh Vitale DO at 23:34 EDT , Chest X-Ray 03/27/24 23:05 IMPRESSION: Mild right basilar atelectasis. Electronically Signed: Lokesh Vitale DO at 23:35 EDT , Hip/Pelvis X-Ray 03/27/24 23:05 IMPRESSION: No evidence of displaced pelvic or hip fracture. Electronically Signed: Lokesh Vitale at 23:37 EDT , Lumbar Spine X-Ray 03/27/24 23:05 IMPRESSION: Wedge compression of L1. Electronically Signed: Lokesh Vitale at 23:39 EDT , Lumbar Spine CT 03/28/24 02:38 IMPRESSION: There is acute/subacute compression fracture of L1 with 30% decreased height of the vertebral body. There is a nonobstructive stone in the right kidney measures 8 mm. Electronically Signed: Opal Earl MD at 6:40 EDT , Chest CTA 03/28/24 23:45 IMPRESSION: Bibasilar pneumonia. No demonstrated pulmonary embolism or arterial dissection. Electronically Signed: Opal Earl MD at 1:10 EDT , Chest X-Ray 03/29/24 05:59 IMPRESSION: Lower lung atelectasis or infiltrate. Electronically Signed: Andre Butler MD at 8:41 EDT , Charges/Coding Visit Charges Inpatient E&M: 55388 Subs Hosp L2
[2024-04-01] MEDS: Senna/Docusate Sodium 1 Tablet 2 TABLET PO (23:01)
[2024-04-01] MEDS: PIMAVANSERIN TARTRATE 34 MG PO (23:02)
[2024-04-01] MEDS: Atorvastatin Calcium 80 MG Tablet PO (23:02)
[2024-04-01] MEDS: Lactulose 20 GM/30 ML UDC 10 GM PO (23:04)
[2024-04-02 04:00] VITALS: BP 143/88; PULSE 91; RESP 16; TEMP 36.6; O2SAT 94
[2024-04-02] MEDS: Ipratropium/Albuterol Sulfate 3 ML AMPUL.NEB INHALATION ×2 (06:41→13:35)
[2024-04-02 06:42] VITALS: PULSE 89; RESP 18; O2SAT 94
[2024-04-02 07:08] LABS: Absolute Lymphocyte Count 1.71 X10^3/uL (0.83-4.51); Absolute Neutrophil Count 6.2 X10^3/uL (2.0-7.7); Basophil# 0.07 X10^3/uL; Basophil% 0.8 % (0-1); Eosinophil# 0.33 X10^3/uL; Eosinophils% 3.6 % (0-5); Hematocrit 36.3 % (37-47); Hemoglobin 11.4 g/dL (12.0-15.0); Lymphocyte # 1.71 X10^3/ul (0.83-4.51); Lymphocyte % 18.6 % (19-41); Mean Corp Hgb Conc 31.4 g/dL (32-36); Mean Corpuscular Hgb 26.6 pg (27.0-32.0); Mean Corpuscular Volume 84.8 fL (81-99); Mean Platelet Vol. 8.8 fl (6.2-12.0); Monocyte# 0.91 X10^3/uL; Monocyte% 9.9 % (0-10); NRBC Flagged by Analyzer 0 % (0-5); Neutrophil # 6.15 X10^3/uL (2.7-7.7); Neutrophil % 66.7 % (47-70); Platelet Count 376 K/mm3 (150-450); RBC Distribution Width SD 51.5 fl (35.1-43.9); Red Blood Count 4.28 M/mm3 (4.2-5.4); White Blood Count 9.2 K/mm3 (4.4-11.0)
[2024-04-02 07:26] LABS: Anion Gap 6 (5-15); BUN 21 mg/dL (7-18); BUN/Creat Ratio 32.1 RATIO (10-20); Calcium,Total 9.7 mg/dL (8.5-10.1); Chloride 106 mmol/L (98-107); Creatinine, Serum 0.65 mg/dL (0.55-1.02); EST Glomerular Filtration Rate 93 mL/min (>60); Est Glom Filt Rate - Afr Amer 112 mL/min (>60); Estimated Creatinine Clearance 41.63 ml/min; Glucose 160 mg/dL (74-106); Sodium Level 138 mmol/L (136-145)
[2024-04-02 09:14] VITALS: BP 120/69; PULSE 87; RESP 18; TEMP 36.6; O2SAT 93
[2024-04-02] MEDS: guaiFENesin 1,200 MG Tablet 1200 MG PO (09:22)
[2024-04-02] MEDS: Multivitamins,Therapeutic Tablet 1 TABLET PO (09:22)
[2024-04-02] MEDS: Ascorbic Acid 500 MG Tablet 1000 MG PO ×2 (09:22→17:01)
[2024-04-02] MEDS: Lactobacillis Acidophilus 2 CAP PO (09:22)
[2024-04-02] MEDS: Cholecalciferol (VIT D3) 25 MCG TABLET (1,000 UNITS) 50 MCG PO (09:23)
[2024-04-02] MEDS: Senna/Docusate Sodium 1 Tablet 2 TABLET PO (09:23)
[2024-04-02] MEDS: Fluoxetine HCl 40 MG CAPSULE PO (09:23)
[2024-04-02] MEDS: Pantoprazole Sodium 20 MG Tablet PO (09:23)
[2024-04-02] MEDS: Zinc Sulfate 50 mg zinc (220 mg) ORAL capsule PO (09:23)
[2024-04-02] MEDS: Ensure Plus High Protein 120 ML LIQUID PO ×2 (09:25→14:20)
[2024-04-02] MEDS: Acetaminophen 325 MG Tablet 650 MG PO ×2 (09:28→16:00)
--- NOTE | 2024-04-02 10:21 | CASEMGMT ---
Social Work- Sw met with pt and pt spouse to advise of TCU acceptance and the need to provide Nuplazid. Pt spouse agreeable and states he has already spoken with [facility] @ [facility] about another medication that pt receives at the beginning of the month only that he will bring as well. SW answered questions pt spouse had about TCU and process. SUMA Ibrahim
[2024-04-02 13:36] VITALS: PULSE 92; RESP 18
[2024-04-02 14:17] VITALS: BP 111/71; PULSE 94; RESP 18; TEMP 36.6; O2SAT 95
[2024-04-02] MEDS: Lactulose 20 GM/30 ML UDC 10 GM PO (14:19)
--- NOTE | 2024-04-02 14:31 | PCM.TXEXTCAR ---
Diet Diet Order/Speech Therapy: 03/28/24 03:36 Diet: Regular - General Food consistency:: Easy to Chew Liquid Consistency:: Regular/Thin Is pt able to select menu?: Yes Diet Comments: Distant Supervision Routine Orders/Code Status Suppository Type: Dulcolax 10mg Suppository Frequency: Daily PRN Therapies Extremity Affected:: Bilateral Lower Physical Therapy: Eval and Treat Occupational Therapy: Eval and Treat Speech Therapy: Eval and Treat Problem/Diagnosis (1) Closed compression fracture of L1 vertebra: Status: Acute Code(s): S32.010A - Wedge compression fracture of first lumbar vertebra, initial encounter for closed fracture (2) Fall from slipping on wet surface: Status: Acute Code(s): W01.0XXA - Fall on same level from slipping, tripping and stumbling without subsequent striking against object, initial encounter (3) Pneumonia of both lower lobes: Status: Acute Code(s): J18.9 - Pneumonia, unspecified organism (4) Hypoxemia: Status: Acute Code(s): R09.02 - Hypoxemia (5) Parkinson's disease: Status: Acute Code(s): G20 - Parkinson's disease (6) Mechanical complication of deep brain stimulator: Status: Acute Code(s): T85.190A - Other mechanical complication of implanted electronic neurostimulator of brain electrode (lead), initial encounter Plan 78-year-old female was admitted after mechanical fall and is found to have L1 wedge compression fracture. 1. L1 wedge compression fracture after mechanical fall at home in the setting of known osteoporosis - Admit to general medical floor. Place Lidoderm patch and give Tylenol as needed for [id number] (level 1-5 out of 10) pain or fever. IV morphine 2 mg for severe pain. CT of lumbar spine individually reviewed and shows acute wedge compression fracture of L1 vertebra. Cannot have MRI because she has a pacemaker. Pain management Dr. Olu Gagnon consulted. [facility] Dr. Gerald Disla is also consulted. On a stool softener as patient is on morphine. 03/30: Patient states that her pain is better, sitting on the chair. She has not had a bowel movement last 2 to 3 days. I talked with the orthospine doctor Dr. Disla metastatic cyst pain is better therefore we will evaluate the patient as an outpatient to further decide kyphoplasty as an outpatient procedure 03/31: Because of confusion disorientation, lidocaine and opioid discontinued. Yesterday morphine was discontinued. On Zanaflex and Toradol for pain control and muscle spasm respectively. 04/01: The patient more alert, speech coherent and making sense. 2. Leukocytosis may be inflammatory from compression fracture: CTA negative for PE. Airspace opacity in bilateral lung bases without air bronchograms most likely bibasilar atelectasis. Discussed with the patient and her and patient does not have new signs and symptoms of pneumonia like cough, sputum production or fever. leukocytosis of 14.3 present on admission: Urinary antigens are negative. Respiratory panel negative. Empirically on IV ceftriaxone and Zithromax. Discontinue Zithromax. 03/30: Hypoxia resolved. Labs ordered. I talked to the patient and gave my clinical impression of L1 compression fracture along with the radiological findings. I said adipocyte and may be due to fall and compression fracture of L1 vertebra. Empirically on IV antibiotic but clinically she does not seem to have pneumonia. 04/01: No acute issues. IV antibioitic discontinued. Pneumonia ruled out 3. Parkinson's disease; with previous mechanical complication of deep brain stimulator and chronically poor balance and mobility compounding #1 & #2 - Continue Parkinson's medication as previous. PT/OT and case management consult and treat in case patient will require ECF for subacute rehabilitation with help appreciated in advance. 4. Acute metabolic encephalopathy probably from pain - Continue supportive care outlined above and monitor for improvement. 03/30 : Metabolic encephalopathy resolved. TSH, folic acid. Serum alcohol level normal. Patient has dementia. 5. Hyperlipidemia - Resume statin as previous. 6. Hypothyroidism - Continue Synthroid at current dose and check TSH. 7. Former history of tobacco abuse - Noted. 8. Depression with anxiety - Resume current regimen. 9. GERD - Continue PPI. 10. Osteoarthritis; s/p Left total hip replacement - Noted with no evidence of acute fracture or dislocation on x-rays in ER this admission. 11. DVT prophylaxis - Lovenox 40 mg subcu daily. 12. Constipation: Patient BM 1 day before yesterday. On lactulose and senna S. Clinical Impression(s) from Imaging Studies Brain CT 03/27/24 22:04 IMPRESSION: No acute intracranial pathology of the brain. Electronically Signed: Lokesh Vitale DO at 23:34 EDT , Chest X-Ray 03/27/24 23:05 IMPRESSION: Mild right basilar atelectasis. Electronically Signed: Lokesh VitaleDO at 23:35 EDT , Hip/Pelvis X-Ray 03/27/24 23:05 IMPRESSION: No evidence of displaced pelvic or hip fracture. Electronically Signed: Lokesh Vitale DO at 23:37 EDT , Lumbar Spine X-Ray 03/27/24 23:05 IMPRESSION: Wedge compression of L1. Electronically Signed: Lokesh Vitale DO at 23:39 EDT , Lumbar Spine CT 03/28/24 02:38 IMPRESSION: There is acute/subacute compression fracture of L1 with 30% decreased height of the vertebral body. There is a nonobstructive stone in the right kidney measures 8 mm. Electronically Signed: Opal Earl MD at 6:40 EDT , Chest CTA 03/28/24 23:45 IMPRESSION: Bibasilar pneumonia. No demonstrated pulmonary embolism or arterial dissection. Electronically Signed: Opal Earl MD at 1:10 EDT , Chest X-Ray 05/24/24 05:59 IMPRESSION: Lower lung atelectasis or infiltrate. Electronically Signed: Andre Butler MD at 8:41 EDT , Allergies/Procedures Done in Hospital Allergies lorazepam (From Ativan) Adverse Reaction (Intermediate, Verified 03/27/24 21:10) Other increased confusion and agitation haloperidol (From Haldol) Adverse Reaction (Verified 03/27/24 21:10) Other increased confusion and agitation Type of Care/Length of Stay Estimated LOS: Convalescent Care Less Than 30 days Type of Care Needed: Skilled Rehab Potential: Good Prognosis: Good Additional Orders/Day of Discharge Day of Discharge: 04/02/24 Dietary and Speech Recommendations Dietitian Recommendations/Changes: Will continue liberalized regular diet with consistency/texture as per PROCESS CONTROLLER. Will continue 120mL ensure plus HP 4 times per day w/ medpass. Monitor blood glucose level and restrict dietary carbohydrate as needed. Trend weights closely and adjust ONS as needed to optimize nutrition and prevent energy/pro depletion. Discharge Plan Admission Admit Date/Time: 03/28/24 01:53 Primary Reason for Your Visit: L1 compression fracture Attending Provider: Talib Boland Primary Care Provider: Crow Perez Consulting Providers: Chris Rose; Gerald Disla; Chris Johnson Discharge Orders/Prescriptions Prescriptions: New ascorbic acid (vitamin C) 500 mg Tablet 1,000 mg PO BIDCM Qty: 0 0RF guaifenesin [Mucus Relief ER] 1,200 mg Tablet Extended Release 12hr 1,200 mg PO BID 7 Days Qty: 14 0RF ipratropium-albuterol 0.5 mg-3 mg(2.5 mg base)/3 mL Solution For Nebulization 3 ml inhalation Q6H.RT PRN (Reason: SOB/Wheezing) Qty: 0 0RF lactulose 20 gram/30 mL Solution 10 g PO TID PRN (Reason: constipation) Qty: 0 0RF sennosides-docusate sodium [Stool Softener-Stimulant Laxat] 8.6-50 mg Tablet 2 tab PO BID Qty: 0 0RF acetaminophen 325 mg Tablet 650 mg PO Q6H PRN PRN (Reason: Pain Score 1-3 or fever.) Qty: 0 0RF tizanidine 2 mg Tablet 2 mg PO Q8H PRN PRN (Reason: Muscle Spasm) Qty: 0 0RF ferrous sulfate 325 mg (65 mg iron) tablet 325 mg PO QODAY Qty: 30 2RF Continued atorvastatin 80 mg Tablet 80 mg PO DAILY pantoprazole 20 mg Tablet,Delayed Release (Dr/Ec) 20 mg PO DAILY levothyroxine 50 mcg Tablet 50 mcg PO DAILY fluoxetine 20 mg Tablet 40 mg PO DAILY rasagiline 1 mg Tablet 1 mg PO DAILY ibandronate 150 mg tablet 1 tab PO QMONTH Rx Instructions: 1st day of the month tramadol 50 mg tablet 50 mg PO Q8H PRN (Reason: pain) 3 Days Qty: 9 0RF Nuplazid 34 mg capsule 34 mg PO QHS cholecalciferol (vitamin D3) 50 mcg (2,000 unit) capsule 50 mcg PO DAILY multivitamin [Daily Multi-Vitamin] Tablet 1 tab PO DAILY Referrals / Follow Up: Gerald Disla MD [Med Staff - Active Staff] - Within 2 Weeks (For L1 compression fracture to evaluate for kyphoplasty.) Crow Perez DO [Primary Care Provider] - Within 2 Weeks Disposition Disposition (needs filled in before D/C Order can be placed): Care Home Facility (1) Closed compression fracture of L1 vertebra Qualifiers: Encounter type: initial encounter Qualified Code(s): S32.010A - Wedge compression fracture of first lumbar vertebra, initial encounter for closed fracture (2) Fall from slipping on wet surface Qualifiers: Encounter type: initial encounter Qualified Code(s): W01.0XXA - Fall on same level from slipping, tripping and stumbling without subsequent striking against object, initial encounter (3) Pneumonia of both lower lobes Qualifiers: Pneumonia type: due to unspecified organism Qualified Code(s): J18.9 - Pneumonia, unspecified organism (5) Parkinson's disease Qualifiers: Dyskinesia presence: with dyskinesia Fluctuating manifestations: with fluctuating manifestations Qualified Code(s): G20.B2 - Parkinson's disease with dyskinesia, with fluctuations (6) Mechanical complication of deep brain stimulator Qualifiers: Encounter type: sequela Qualified Code(s): T85.190S - Other mechanical complication of implanted electronic neurostimulator of brain electrode (lead), sequela
--- NOTE | 2024-04-02 14:39 | DS.PCM_ITS ---
Providers Date of Admission: 03/28/24 Date of Discharge: 04/02/24 Primary Care Physician: Dr. Crow Perez, Consultations 03/28/24 02:38 Consult: Orthopedics Routine Consulting Provider: Gerald Disla Reason for Consult: Fall with suspected acute L1 wedge compression fracture. EMERGENT Consult: No MD Notified: Yes Date Notified: 03/28/24 Time Notified: 09:31 Method of Notification: Text Reason For Visit: L1 WEDGE COMPRESSION FRACTURE AFTERMECHANICAL FALL Diagnosis Discharge Diagnosis (1) Closed compression fracture of L1 vertebra: Status: Acute Code(s): S32.010A - Wedge compression fracture of first lumbar vertebra, initial encounter for closed fracture Qualifiers: Encounter type: initial encounter Qualified Code(s): S32.010A - Wedge compression fracture of first lumbar vertebra, initial encounter for closed fracture (2) Fall from slipping on wet surface: Status: Acute Code(s): W01.0XXA - Fall on same level from slipping, tripping and stumbling without subsequent striking against object, initial encounter Qualifiers: Encounter type: initial encounter Qualified Code(s): W01.0XXA - Fall on same level from slipping, tripping and stumbling without subsequent striking against object, initial encounter (3) Pneumonia of both lower lobes: Status: Acute Code(s): J18.9 - Pneumonia, unspecified organism Qualifiers: Pneumonia type: due to unspecified organism Qualified Code(s): J18.9 - Pneumonia, unspecified organism (4) Hypoxemia: Status: Acute Code(s): R09.02 - Hypoxemia (5) Parkinson's disease: Status: Acute Code(s): G20 - Parkinson's disease Qualifiers: Dyskinesia presence: with dyskinesia Fluctuating manifestations: with fluctuating manifestations Qualified Code(s): G20.B2 - Parkinson's disease with dyskinesia, with fluctuations (6) Mechanical complication of deep brain stimulator: Status: Acute Code(s): T85.190A - Other mechanical complication of implanted electronic neurostimulator of brain electrode (lead), initial encounter Qualifiers: Encounter type: sequela Qualified Code(s): T85.190S - Other mechanical complication of implanted electronic neurostimulator of brain electrode (lead), sequela Plan 78-year-old female was admitted after mechanical fall and is found to have L1 wedge compression fracture. 1. L1 wedge compression fracture after mechanical fall at home in the setting of known osteoporosis - Admit to general medical floor. Place Lidoderm patch and give Tylenol as needed for [id number] (level 1-5 out of 10) pain or fever. IV morphine 2 mg for severe pain. CT of lumbar spine individually reviewed and shows acute wedge compression fracture of L1 vertebra. Cannot have MRI because she has a pacemaker. Pain management Dr. Olu Gagnon consulted. [facility]ospine Dr. Gerald Disla is also consulted. On a stool softener as patient is on morphine. 03/30: Patient states that her pain is better, sitting on the chair. She has not had a bowel movement last 2 to 3 days. I talked with the orthospine doctor Dr. Disla metastatic cyst pain is better therefore we will evaluate the patient as an outpatient to further decide kyphoplasty as an outpatient procedure 03/31: Because of confusion disorientation, lidocaine and opioid discontinued. Yesterday morphine was discontinued. On Zanaflex and Toradol for pain control and muscle spasm respectively. 04/01: The patient more alert, speech coherent and making sense. 04/02: Patient is on baseline mental alertness. Coherent his speech. Oriented x 3. Patient is medically stable for transfer to TCU. 2. Leukocytosis may be inflammatory from compression fracture: CTA negative for PE. Airspace opacity in bilateral lung bases without air bronchograms most likely bibasilar atelectasis. Discussed with the patient and her and patient does not have new signs and symptoms of pneumonia like cough, sputum production or fever. leukocytosis of 14.3 present on admission: Urinary antigens are negative. Respiratory panel negative. Empirically on IV ceftriaxone and Zithromax. Discontinue Zithromax. 03/30: Hypoxia resolved. Labs ordered. I talked to the patient and gave my clinical impression of L1 compression fracture along with the radiological findings. I said adipocyte and may be due to fall and compression fracture of L1 vertebra. Empirically on IV antibiotic but clinically she does not seem to have pneumonia. 04/01: No acute issues. IV antibioitic discontinued. Pneumonia ruled out 3. Parkinson's disease; with previous mechanical complication of deep brain stimulator and chronically poor balance and mobility compounding #1 & #2 - Continue Parkinson's medication as previous. PT/OT and case management consult and treat in case patient will require ECF for subacute rehabilitation with help appreciated in advance. 04/02: Discharged on Mucinex, incentive spirometry to continue. 4. Acute metabolic encephalopathy probably from pain - Continue supportive care outlined above and monitor for improvement. 03/30 : Metabolic encephalopathy resolved. TSH, folic acid. Serum alcohol level normal. Patient has dementia. 5. Hyperlipidemia - Resume statin as previous. 6. Hypothyroidism - Continue Synthroid at current dose and check TSH. 7. Former history of tobacco abuse - Noted. 8. Depression with anxiety - Resume current regimen. 9. GERD - Continue PPI. 10. Osteoarthritis; s/p Left total hip replacement - Noted with no evidence of acute fracture or dislocation on x-rays in ER this admission. 11. DVT prophylaxis - Lovenox 40 mg subcu daily. 12. Constipation: Patient BM 1 day before yesterday. On lactulose and senna S. 04/02: Patient had bowel movement today. Discharge medication reconciliation done. Discharge follow-up instructions completed. Discharge process discussed with the patient and all questions were answered to patient's satisfaction. Follow with PCP in 1 to 2 weeks. Discharged to TCU Total time spent, exact 35 minutes on discharge meds reconciliation, examination, coordination of care with nurses and ancillary staff, review of imaging and blood test and discussion with the patient on follow-up instructions. Clinical Impression(s) from Imaging Studies Brain CT 03/27/24 22:04 IMPRESSION: No acute intracranial pathology of the brain. Electronically Signed: Lokesh Vitale DO at 23:34 EDT , Chest X-Ray 03/27/24 23:05 IMPRESSION: Mild right basilar atelectasis. Electronically Signed: Lokesh Vitale DO at 23:35 EDT , Hip/Pelvis X-Ray 03/27/24 23:05 IMPRESSION: No evidence of displaced pelvic or hip fracture. Electronically Signed: Lokesh Vitale DO at 23:37 EDT , Lumbar Spine X-Ray 03/27/24 23:05 IMPRESSION: Wedge compression of L1. Electronically Signed: Lokesh Vitale DO at 23:39 EDT , Lumbar Spine CT 03/28/24 02:38 IMPRESSION: There is acute/subacute compression fracture of L1 with 30% decreased height of the vertebral body. There is a nonobstructive stone in the right kidney measures 8 mm. Electronically Signed: Opal Earl MD at 6:40 EDT , Chest CTA 03/28/24 23:45 IMPRESSION: Bibasilar pneumonia. No demonstrated pulmonary embolism or arterial dissection. Electronically Signed: Opal Earl MD at 1:10 EDT , Chest X-Ray 03/29/24 05:59 IMPRESSION: Lower lung atelectasis or infiltrate. Electronically Signed: Andre Butler MD at 8:41 EDT , Medications at Discharge Home Medications atorvastatin 80 mg tablet 80 mg PO DAILY cholesterol 05/17/22 fluoxetine 20 mg tablet 40 mg PO DAILY depression 05/17/22 levothyroxine 50 mcg tablet 50 mcg PO DAILY thyroid 05/17/22 pantoprazole 20 mg tablet,delayed release 20 mg PO DAILY gerd 05/17/22 rasagiline 1 mg tablet 1 mg PO DAILY parkinsons med 05/17/22 ibandronate 150 mg tablet 1 tab PO QMONTH osteoporosis 06/07/22 tramadol 50 mg tablet 50 mg PO Q8H PRN pain 3 days #9 tabs 09/03/22 cholecalciferol (vitamin D3) 50 mcg (2,000 unit) capsule 50 mcg PO DAILY replacement 03/28/24 multivitamin (Daily Multi-Vitamin tablet) 1 tab PO DAILY supplement 03/28/24 pimavanserin 34 mg capsule (Nuplazid) 34 mg PO QHS hallucinations 03/28/24 acetaminophen 325 mg tablet 650 mg (2 x 325 mg) PO Q6H PRN PRN Pain Score 1-3 or fever. #0 tabs 04/02/24 ascorbic acid (vitamin C) 500 mg tablet 1,000 mg (2 x 500 mg) PO BIDCM #0 tabs 04/02/24 ferrous sulfate 325 mg (65 mg iron) tablet 325 mg PO QODAY #30 tabs 04/02/24 lactulose 20 gram/30 mL oral solution 10 g (15 mL) PO TID PRN constipation #0 mL 04/02/24 sennosides 8.6 mg-docusate sodium 50 mg tablet (Stool Softener-Stimulant Laxative) 2 tab PO BID #0 tabs 04/02/24 tizanidine 2 mg tablet 2 mg PO Q8H PRN PRN Muscle Spasm #0 tabs 04/02/24 Physical Exam Narrative Seen and examined. Patient sitting on the bed. The patient is more oriented and talking better and making sense after opoid discontinued Physical exam General: Awake, cooperative,oriented to time, place and person. coherent speech HEENT: Atraumatic, PERRLA, EOMI, Normocephalic Oral: Oral mucosa moist. No Gingival or Mucosal Lesions/ Ulcerations Neck: Supple, No JVD, Negative Carotid Bruits Chest wall/Lungs: Air entry diminished in bilateral lung bases. No crepitation/rhonchi Cardiovascular: Regular rate, Regular Rhythm, Normal S1, Normal S2, No M/G/R Abdomen: Bowel Sounds Present, Soft, Non Tender, Non-Distended : No dysuria. No renal angle tenderness. No suprapubic tenderness. Extremities: No edema, Capillary Refill Less than 3 Seconds Skin: No rashes, No breakdown Musculoskeletal: No Tenderness to Palpation of Joints or Extremities. Bilateral knees and hip arthritis. Spine: Mild tenderness present over L1 vertebral and paraspinal muscle. Sitting upright. ROM restricted of lumbar spine. Neurological: Cranial nerves II-XII grossly intact, DTR 2+/4. No acute focal neurological deficit. Psych/Mental Status: Flat affect, dementia. Weight / BMI Weight Weight: 115 lb 11.883 oz Body Mass Index (BMI) 22.6 ABG / Lab / Microbiology Data 04/02/24 06:25 04/02/24 06:25 Laboratory: Laboratory Results - last 24 hr 04/02/24 06:25: WBC 9.2, RBC 4.28, Hgb 11.4 L, Hct 36.3 L, MCV 84.8, MCH 26.6 L, MCHC 31.4 L, RDW Std Deviation 51.5 H, RDW Coeff of Su 17.0 H, Plt Count 376, MPV 8.8, Immature Gran % (Auto) 0.400, Neut % (Auto) 66.7, Lymph % (Auto) 18.6 L , Parmer % (Auto) 9.9, Eos % (Auto) 3.6, Baso % (Auto) 0.8, Absolute Neuts (auto) 6.2, Absolute Lymphs (auto) 1.71, Nucleated RBC % 0, Sodium 138, Potassium 4.0, Chloride 106, Carbon Dioxide 26.0, Anion Gap 6, BUN 21 H, Creatinine 0.65, Estim Creat Clear Calc 41.63, Est GFR (MDRD) Af Amer 112, Est GFR (MDRD) Non-Af 93, B UN/Creatinine Ratio 32.1 H, Glucose 160 H, Calcium 9.7 Microbiology: Microbiology 03/28/24 04:05 Mucosa - Nasopharyngeal Respiratory Panel (PCR) - Final 03/28/24 03:30 Urine, Clean Catch Legionella Antigen - Final 03/28/24 03:30 Urine, Clean Catch Streptococcus pneumoniae Antigen (M - Final Meaningful Use Info Meaningful Use Meaningful Use Diagnoses (Choose all that apply): None applicable Ischemic Stroke Statin Dosing Therapy Reference: STATIN DOSE THERAPY REFERENCE: * Patients > 75 years receive moderate or high dose statin therapy. * Patients 75 years or YOUNGER should receive HIGH intensity statin dose unless contraindicated. You will be required to document reason for non-treatment if statin daily dose does not meet guidelines. HIGH DOSE STATIN THERAPY DAILY Atorvastatin > than or = to 40 mg Rosuvastatin > than or = to 20 mg Amlodipine + Atorvastatin > than or = to 2.5/40 mg Ezetimibe + Simvastatin 10/80 mg Simvastatin 80mg Discharge Plan Admission Admit Date/Time: 03/28/24 01:53 Primary Reason for Your Visit: L1 compression fracture Attending Provider: Talib Boland Primary Care Provider: Crow Perez Consulting Providers: Chris Rose; Gerald Disla; Chris Johnson Instructions Additional Instructions / Restrictions: Continue incentive spirometry and PEP for 1 week Discharge Orders/Prescriptions Prescriptions: New ascorbic acid (vitamin C) 500 mg Tablet 1,000 mg PO BIDCM Qty: 0 0RF lactulose 20 gram/30 mL Solution 10 g PO TID PRN (Reason: constipation) Qty: 0 0RF sennosides-docusate sodium [Stool Softener-Stimulant Laxat] 8.6-50 mg Tablet 2 tab PO BID Qty: 0 0RF acetaminophen 325 mg Tablet 650 mg PO Q6H PRN PRN (Reason: Pain Score 1-3 or fever.) Qty: 0 0RF tizanidine 2 mg Tablet 2 mg PO Q8H PRN PRN (Reason: Muscle Spasm) Qty: 0 0RF ferrous sulfate 325 mg (65 mg iron) tablet 325 mg PO QODAY Qty: 30 2RF Continued atorvastatin 80 mg Tablet 80 mg PO DAILY pantoprazole 20 mg Tablet,Delayed Release (Dr/Ec) 20 mg PO DAILY levothyroxine 50 mcg Tablet 50 mcg PO DAILY fluoxetine 20 mg Tablet 40 mg PO DAILY rasagiline 1 mg Tablet 1 mg PO DAILY ibandronate 150 mg tablet 1 tab PO QMONTH Rx Instructions: 1st day of the month tramadol 50 mg tablet 50 mg PO Q8H PRN (Reason: pain) 3 Days Qty: 9 0RF Nuplazid 34 mg capsule 34 mg PO QHS cholecalciferol (vitamin D3) 50 mcg (2,000 unit) capsule 50 mcg PO DAILY multivitamin [Daily Multi-Vitamin] Tablet 1 tab PO DAILY Referrals / Follow Up: Gerald Disla MD [Med Staff - Active Staff] - Within 2 Weeks (For L1 compression fracture to evaluate for kyphoplasty.) Crow Perez DO [Primary Care Provider] - Within 2 Weeks Disposition Disposition (needs filled in before D/C Order can be placed): Intermediate Facility Charges/Coding Visit Charges Inpatient E&M: 23068 Disch Hosp >30min
--- NOTE | 2024-04-02 15:32 | CASEMGMT ---
Social Work- SW spoke with pt to advise of pending transfer to TCU. SW called pt as well who states he will be in later to check-in on pt. SUMA Ibrahim
--- NOTE | 2024-04-02 17:11 | NURSING ---
tried to call report again to TCU since they never called back from over an hr ago. This time they did not answer.
--- NOTE | 2024-04-02 17:22 | NURSING ---
Called [facility] and Jacklyn took report pt will be going to room 3.
--- NOTE | 2024-04-03 15:48 | CHAPLAIN ---
Type of Pastoral Visit _x__ Initial Visit ___ Follow-up Visit ___ On-call Visit ___ General Patient Visit ___ Spiritual Assessment ___ Family Conference ___ Bereavement ___ Rapid Response ___ Code Blue ___ Other (describe below) Pastoral Care Referral From _x__ Patient ___ Family ___ Nurse ___ Physician ___ [employer] Piece Consultant ___ Boring Machine Feeder ___ Other (describe below) Sacrament/Intervention _x__ Active listening ___ Anointing ___ Catholic _x__ Bereavement ___ Communion ___ Nan exploration ___ _x__ Life review _x__ Prayer ___ Reconciliation ___ Sacrament of Sick _x__ Supportive presence ___ Wedding ___ Other (describe below) Pastoral Comments [place] [facility] [place] [facility] and met there; pt is welcoming and states that she is glad for the visit; pt reports on her injury and pain and explains concerns for her health and recovery; pt gives some life history including the of her son when he was 16 years old; pt is tearful talking about that; pt speaks of her own aging process and how nan is important to her; pt asks for prayers for her recovery and her life at this stage
== END 2024-04-02 17:54 | DRG 542 ==
LOC: ED 03-28 01:25 → MS3 03-28 03:49
PROVIDERS: Admitting Provider Internal Medicine; Emergency Provider Emergency Medicine; PCP Family Medicine; Visit Provider Internal Medicine
DX: M80.08XA Age-related osteoporosis with current pathological fracture, vertebra(e), initial encounter for fracture (principal); G93.41 Metabolic encephalopathy; J98.11 Atelectasis; F02.80 Dementia in other diseases classified elsewhere, unspecified severity, without behavioral disturbance, psychotic disturbance, mood disturbance, and anxiety; G20.B2 Parkinson's disease with dyskinesia, with fluctuations; E03.9 Hypothyroidism, unspecified; F32.9 Major depressive disorder, single episode, unspecified; E78.00 Pure hypercholesterolemia, unspecified; F41.9 Anxiety disorder, unspecified; M16.12 Unilateral primary osteoarthritis, left hip; K21.9 Gastro-esophageal reflux disease without esophagitis; W01.0XXA Fall on same level from slipping, tripping and stumbling without subsequent striking against object, initial encounter; K59.00 Constipation, unspecified; R09.02 Hypoxemia; Z79.890 Hormone replacement therapy; Z79.899 Other long term (current) drug therapy; Z87.891 Personal history of nicotine dependence; Z96.82 Presence of neurostimulator; Z96.642 Presence of left artificial hip joint; Z95.0 Presence of cardiac pacemaker
CPT/HCPCS: 36415; 70450; 71045; 71046; 71275; 72100; 72131; 73502; 80048; 80307; 81001; 82077; 82607; 82746; 83735; 84100; 84443; 84484; 85025; 87449; 87633; 92526; 92610; 93005; 94640; 97116; 97162; 97166; 97530; 97535; 99283; Q9967; A4216; J2405

== ENCOUNTER 2024-04-02 18:04 | Inpatient (IN) | payer MEDICARE, SELFPAY ==
[2024-04-02 19:15] VITALS: BP 122/82; PULSE 89; RESP 20; TEMP 36.6; O2SAT 98; BMI 22.0
[2024-04-02] MEDS: Acetaminophen 325 MG Tablet 650 MG PO (22:41)
[2024-04-02] MEDS: PIMAVANSERIN TARTRATE 34 MG PO (22:41)
[2024-04-02] MEDS: Atorvastatin Calcium 80 MG Tablet PO (22:42)
[2024-04-02] MEDS: Senna/Docusate Sodium 1 Tablet 2 TABLET PO (22:43)
[2024-04-03 05:53] LABS: Absolute Lymphocyte Count 2.43 X10^3/uL (0.83-4.51); Absolute Neutrophil Count 5.6 X10^3/uL (2.0-7.7); Basophil# 0.09 X10^3/uL; Basophil% 0.9 % (0-1); Eosinophil# 0.35 X10^3/uL; Eosinophils% 3.7 % (0-5); Hematocrit 37.2 % (37-47); Hemoglobin 11.8 g/dL (12.0-15.0); Lymphocyte # 2.43 X10^3/ul (0.83-4.51); Lymphocyte % 25.4 % (19-41); Mean Corp Hgb Conc 31.7 g/dL (32-36); Mean Corpuscular Hgb 26.6 pg (27.0-32.0); Mean Corpuscular Volume 83.8 fL (81-99); Mean Platelet Vol. 8.7 fl (6.2-12.0); Monocyte# 1.03 X10^3/uL; Monocyte% 10.8 % (0-10); NRBC Flagged by Analyzer 0.2 % (0-5); Neutrophil # 5.62 X10^3/uL (2.7-7.7); Neutrophil % 58.7 % (47-70); Platelet Count 417 K/mm3 (150-450); RBC Distribution Width CV 17.1 % (11.6-14.6); RBC Distribution Width SD 51.7 fl (35.1-43.9); Red Blood Count 4.44 M/mm3 (4.2-5.4); White Blood Count 9.6 K/mm3 (4.4-11.0)
[2024-04-03 06:14] LABS: Anion Gap 10 (5-15); BUN 19 mg/dL (7-18); BUN/Creat Ratio 33.9 RATIO (10-20); Chloride 105 mmol/L (98-107); Creatinine, Serum 0.56 mg/dL (0.55-1.02); EST Glomerular Filtration Rate 111 mL/min (>60); Est Glom Filt Rate - Afr Amer 134 mL/min (>60); Estimated Creatinine Clearance 41.63 ml/min; Glucose 137 mg/dL (74-106); Potassium 3.4 mmol/L (3.5-5.1); Sodium Level 138 mmol/L (136-145)
[2024-04-03] MEDS: Levothyroxine 50 MCG Tablet PO (06:24)
--- NOTE | 2024-04-03 07:53 | HP.PCM_ITS ---
HPI - General General Date of Admission: 04/02/24 Date of Service: 04/03/24 Chief Complaint: Here for rehabilitation. HPI Narrative 03/27/2024 EBONIE LIM, is a 78 Female who presents to [facility] ED with fall. Fell at home, has Parkinson's, fell getting out of shower. Slipped on wet floor, injured left hip, EMS called. Left hip pain, low back pain, Mild SOB. CT head negative, Troponin negative. Pulsox 84% on RA, oxygen 2 liters started, then 3-4 liters after morphine given. Chest X-ray right base atelectasis. CTA chest negative PE, showed bibasilar pneumonia, Levaquin given. X-ray L1 compression fracture. X-ray pelvis, left hip negative. 03/28/2024 Admit [facility]. Tylenol, Lidoderm, Morphine, Ortho for L1 compression fracture. Levaquin IV for pneumonia, check urine antigens for strep, legionella. Check delirium labs. 03/29/2024 Memory lapses 2/[address] showed acute L1 compression fracture, consult Dr. Gagnon. MRI unable due to pacemaker. Ceftriaxone iv for pneumonia, urine antigens negative. PT/OT SNF. 03/30/2024 Pain improved, pulsox 95% on RA. Sitting in chair. Hypoxia resolved. Ceftriaxone iv for pneumonia. 03/31/2024 More confused, stop Lidocaine, stop morphine. Zanaflex, Toradol for pain. PT/OT SNF. 04/01/2024 Confusion improved off morphine. Pneumonia ruled out. 04/02/2024 Admit to TCU with debility, here for rehabilitation, strengthening, prior to discharge home with . [facility] Medical History (Updated 04/03/24 @ 08:[address] Wilfrid Thompson MD) Fall Mechanical complication of deep brain stimulator Parkinson's disease Hypothyroidism Hypothyroidism Anxiety Depression Osteoporosis Former smoker GERD (gastroesophageal reflux disease) Hypercholesterolemia Parkinson disease Home Medications ?Medication ?Instructions ?Recorded ?Last Taken ?Type atorvastatin 80 mg tablet 80 mg PO DAILY cholesterol 05/17/22 04/01/24 History fluoxetine 20 mg tablet 40 mg PO DAILY depression 05/17/22 04/02/24 09:30 History levothyroxine 50 mcg tablet 50 mcg PO DAILY thyroid 05/17/22 04/02/24 05:50 History pantoprazole 20 mg tablet,delayed 20 mg PO DAILY gerd 05/17/22 04/02/24 09:30 History release rasagiline 1 mg tablet 1 mg PO DAILY parkinsons med 05/17/22 04/02/24 09:30 History ibandronate 150 mg tablet 1 tab PO QMONTH osteoporosis 06/07/22 Unknown History tramadol 50 mg tablet 50 mg PO Q8H PRN pain 3 days #9 09/03/22 03/29/24 Rx tabs cholecalciferol (vitamin D3) 50 50 mcg PO DAILY replacement 03/28/24 04/02/24 09:30 History mcg (2,000 unit) capsule multivitamin (Daily Multi-Vitamin 1 tab PO DAILY supplement 03/28/24 04/02/24 09:30 History tablet) pimavanserin 34 mg capsule 34 mg PO QHS hallucinations 03/28/24 04/01/24 History (Nuplazid) acetaminophen 325 mg tablet 650 mg (2 x 325 mg) PO Q6H PRN PRN 04/02/24 04/02/24 09:30 Rx Pain Score 1-3 or fever. #0 tabs ascorbic acid (vitamin C) 500 mg 1,000 mg (2 x 500 mg) PO BIDCM 04/02/24 04/02/24 09:30 Rx tablet supplement #0 tabs ferrous sulfate 325 mg (65 mg 325 mg PO QODAY Supplement #30 tabs 04/02/24 Unknown Rx iron) tablet lactulose 20 gram/30 mL oral 10 g (15 mL) PO TID PRN 04/02/24 04/02/24 14:20 Rx solution constipation #0 mL sennosides 8.6 mg-docusate sodium 2 tab PO BID Constipation #0 tabs 04/02/24 04/02/24 09:30 Rx 50 mg tablet (Stool Softener-Stimulant Laxative) tizanidine 2 mg tablet 2 mg PO Q8H PRN PRN Muscle Spasm 04/02/24 Unknown Rx #0 tabs Allergy/AdvReac Type Severity Reaction Status Date / Time lorazepam (From Ativan) AdvReac Intermediate Other Verified 03/27/24 21:10 haloperidol (From Haldol) AdvReac Other Verified 03/27/24 21:10 Family History unable to obtain Surgical History S/P deep brain stimulator placement S/P deep brain stimulator placement Social History household members: spouse Smoking Status: Former smoker alcohol intake: never substance use type: does not use ROS Constitutional Constitutional: Reports weakness; Denies chills, fever(s) or weight gain ENT HEENT: Denies headache(s), nasal congestion or nasal discharge Cardiovascular Cardiovascular: Denies chest pain or palpitations Respiratory/Chest Respiratory/Chest: Denies cough, excessive phlegm production or shortness of breath with exertion Gastrointestinal Gastrointestinal: Denies abdominal pain, nausea or vomiting Genitourinary Genitourinary: Denies dysuria Musculoskeletal Musculoskeletal: Denies joint pain or joint swelling Integumentary Integumentary: Denies rash or wounds Neurologic Neurologic: Denies focal weakness, numbness or tingling Psychiatric Psychiatric: Denies anxiety, auditory hallucinations, depression, homicidal ideation or suicidal ideation Vital Signs Vital Signs Vital Signs: 04/02/24 19:02 04/02/24 19:15 Temperature 97.8 F Temperature Source Temporal Pulse Rate 89 Pulse Rhythm Regular Pulse Strength Normal (2+) Respiratory Rate 20 H Respiratory Effort Normal Non-Labored Respiratory Depth Normal Respiratory Pattern Normal Blood Pressure 122/82 H Blood Pressure Mean 95 Blood Pressure Source Monitor Blood Pressure Position Semi-Fowlers Blood Pressure Location Left Arm Pulse Ox 98 Oxygen Delivery Method Room Air Room Air Weight Weight: 51.256 kg Body Mass Index (BMI) 22.0 Physical Exam Const alert General Appearance: cooperative HEENT normocephalic Eyes PERRL and EOMs intact bilaterally Neck supple, no JVD and no carotid bruits Resp normal respiratory effort, normal air movement and clear to auscultation bilaterally Cardio regular rate and regular rhythm GI normal to inspection, nondistended, normoactive bowel sounds, non-tender and non-distended Extremity normal capillary refill General Extremity: Negative for edema Skin no rashes or lesions noted General Skin Exam: no breakdown Psych affect normal Appearance: appropriate Results Lab / Micro Data 04/03/24 05:20 04/03/24 05:20 Labs: Laboratory Results - last 24 hr 04/03/24 05:20: WBC 9.6, RBC 4.44, Hgb 11.8 L, Hct 37.2, MCV 83.8, MCH 26.6 L, M CHC 31.7 L, RDW Std Deviation 51.7 H, RDW Coeff of Su 17.1 H, Plt Count 417, MPV 8.7, Immature Gran % (Auto) 0.500, Neut % (Auto) 58.7, Lymph % (Auto) 25.4, [place] % (Auto) 10.8 H, Eos % (Auto) 3.7, Baso % (Auto) 0.9, Absolute Neuts (auto) 5.6, Absolute Lymphs (auto) 2.43, Nucleated RBC % 0.2, Sodium 138, Potassium 3.4 L, Chloride 105, Carbon Dioxide 23.0, Anion Gap 10, BUN 19 H, Creatinine 0.56, Estim Creat Clear Calc 41.63, Est GFR (MDRD) Af Amer 134, Est GFR (MDRD) Non-Af 111, BUN/Creatinine Ratio 33.9 H, Glucose 137 H, Calcium 9.0 Assessment & Plan Assessment/Plan (1) Debility: (2) Fall: (3) Acute respiratory failure with hypoxia: (4) Pneumonia: (5) Compression fracture of L1 lumbar vertebra: (6) Encephalopathy: (7) Hyperlipidemia: (8) Depression: (9) Hypothyroidism: (10) GERD (gastroesophageal reflux disease): (11) Osteoporosis: (12) Parkinson's disease dementia: PLAN: Plan 78 year old female with below past medical history hospitalized for acute respiratory failure with hypoxia 2/2 pneumonia, complicated by L1 compression fracture, encephalopathy, admitted to TCU with debility, here for rehabilitation, strengthening, prior to discharge home with . * Debility - PT/OT. * Dysphagia - ST. * Pain - Tylenol 1000mg q8, Oxycodone 2.5mg q4 prn pain (6-10). * Bowel - senna/colace 2 tablets bid, Dulcolax 10mg pr daily, Lactulose 10gm tid prn. * Adult immunization - Administer pneumonia vaccine, covid vaccine, flu vaccine as appropriate. * DVT prophylaxis - Hold, in case of procedure. * Vitamin C deficiency - Vitamin C 1000mg bidcm. * Hyperlipidemia - Atorvastatin 80mg qhs. * Vitamin D deficiency - D3 50mcg daily. * Iron deficiency anemia - Ferrous sulfate 325mg q48. * Depression - Fluoxetine 40mg daily, stable chronic care home use, GDR not recommended. * Osteoporosis - Ibandronate 150mg qmonth. * Hypothyroidism - Levothyroxine 50mcg daily. * Nutrition - MVI 1 tablet daily. * GERD - Pantoprazole 20mg daily. 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 * Parkinson Disease - s/p deep brain stimulator, Azilect 1mg daily. * Muscle spasm - Tizanidine 2mg q8 prn. * L1 compression fracture - consult Dr. Gagnon to consider kyphoplasty.
[2024-04-03] MEDS: Acetaminophen 500 MG Tablet 1000 MG PO ×3 (08:13→22:59)
[2024-04-03] MEDS: Potassium Chloride Oral Tablet 20 MEQ PO (08:14)
[2024-04-03] MEDS: Ascorbic Acid 500 MG Tablet 1000 MG PO ×2 (08:14→16:54)
[2024-04-03] MEDS: Cholecalciferol (VIT D3) 25 MCG TABLET (1,000 UNITS) 50 MCG PO (08:14)
[2024-04-03] MEDS: Pantoprazole Sodium 20 MG Tablet PO (08:15)
[2024-04-03] MEDS: Senna/Docusate Sodium 1 Tablet 2 TABLET PO ×2 (08:15→21:03)
[2024-04-03] MEDS: Fluoxetine HCl 40 MG CAPSULE PO (08:15)
[2024-04-03] MEDS: Tuberculin,Purif.prot.deriv. 50 TU/ML Vial 0.1 ML ID (10:42)
[2024-04-03] MEDS: Multivitamins,Therapeutic Tablet 1 TABLET PO (11:57)
[2024-04-03] MEDS: Ferrous Sulfate 325 MG Tablet PO (11:57)
--- NOTE | 2024-04-03 13:37 | CON.PCM_ITS ---
Assessment & Plan Assessment/Plan (1) Compression fracture of L1 lumbar vertebra: QUALIFIERS: Encounter type: initial encounter Qualified Code(s): S32.010A - Wedge compression fracture of first lumbar vertebra, initial encounter for closed fracture PLAN: Plan 78 year old female with below past medical history hospitalized for acute respiratory failure with hypoxia 2/2 pneumonia, complicated by L1 compression fracture, encephalopathy, admitted to TCU with debility, here for rehabilitation, strengthening, prior to discharge home with . She is a poor historian making obtaining history difficult. Spoke at length with patient, and daughter (HPOA). -CT scan demonstrates acute compression fracture L1. -She is admitted for debility and rehabilitation. She complains of significant pain in the back into the right hip area. XR from this visit showed no evidence of fracture. -Cannot get MRI due to DBS -History and examination is consistent with her compression fracture as a significant etiology for her pain. -She also describes pain that radiates from the back to the hip and down the right leg. -PRN pain medication per floor regimen. -Not on AC -After discussion with the patient and her regarding the kyphoplasty they wish to proceed. -Plan for L1 kyphoplasty. -NPO midnight 98 minutes was spent on preparation, face to face time, evaluation, examination and documentation on the day of service. HPI Consult Data Date of Consult: 04/03/24 HPI Narrative HPI Narrative: EBONIE LIM, is a 78 F who presents with low back pain after fall recently. She developed back pain after this fall. She has a pmh of parkinsons with DBS in place, hypothyroidism, encephalopathy, depression and gerd. CT scan demonstrated L1 acute compression fracture. She is a poor historian. She was awake in bed with pain and decent control. She mentions of pain in the mid to lower back area. She denies any radiation of pain in the lower extremities. She mentioned that she fell yesterday although she is a poor historian and cannot give details about the mechanism of the fall. [facility] Medical History (Updated 04/03/24 @ 15:[address] Olu Gagnon MD) Fall Mechanical complication of deep brain stimulator Parkinson's disease Hypothyroidism Hypothyroidism Anxiety Depression Osteoporosis Former smoker GERD (gastroesophageal reflux disease) Hypercholesterolemia Parkinson disease Home Medications ?Medication ?Instructions ?Recorded ?Last Taken ?Type atorvastatin 80 mg tablet 80 mg PO DAILY cholesterol 05/17/22 04/01/24 History fluoxetine 20 mg tablet 40 mg PO DAILY depression 05/17/22 04/02/24 09:30 History levothyroxine 50 mcg tablet 50 mcg PO DAILY thyroid 05/17/22 04/02/24 05:50 History pantoprazole 20 mg tablet,delayed 20 mg PO DAILY gerd 05/17/22 04/02/24 09:30 History release rasagiline 1 mg tablet 1 mg PO DAILY parkinsons med 05/17/22 04/02/24 09:30 History ibandronate 150 mg tablet 1 tab PO QMONTH osteoporosis 06/07/22 Unknown History tramadol 50 mg tablet 50 mg PO Q8H PRN pain 3 days #9 09/03/22 03/29/24 Rx tabs cholecalciferol (vitamin D3) 50 50 mcg PO DAILY replacement 03/28/24 04/02/24 09:30 History mcg (2,000 unit) capsule multivitamin (Daily Multi-Vitamin 1 tab PO DAILY supplement 03/28/24 04/02/24 09:30 History tablet) pimavanserin 34 mg capsule 34 mg PO QHS hallucinations 03/28/24 04/01/24 History (Nuplazid) acetaminophen 325 mg tablet 650 mg (2 x 325 mg) PO Q6H PRN PRN 04/02/24 04/02/24 09:30 Rx Pain Score 1-3 or fever. #0 tabs ascorbic acid (vitamin C) 500 mg 1,000 mg (2 x 500 mg) PO BIDCM 04/02/24 04/02/24 09:30 Rx tablet supplement #0 tabs ferrous sulfate 325 mg (65 mg 325 mg PO QODAY Supplement #30 tabs 04/02/24 Unknown Rx iron) tablet lactulose 20 gram/30 mL oral 10 g (15 mL) PO TID PRN 04/02/24 04/02/24 14:20 Rx solution constipation #0 mL sennosides 8.6 mg-docusate sodium 2 tab PO BID Constipation #0 tabs 04/02/24 04/02/24 09:30 Rx 50 mg tablet (Stool Softener-Stimulant Laxative) tizanidine 2 mg tablet 2 mg PO Q8H PRN PRN Muscle Spasm 04/02/24 Unknown Rx #0 tabs Allergy/AdvReac Type Severity Reaction Status Date / Time lorazepam (From Ativan) AdvReac Intermediate Other Verified 03/27/24 21:10 haloperidol (From Haldol) AdvReac Other Verified 03/27/24 21:10 Family History unable to obtain Surgical History S/P deep brain stimulator placement S/P deep brain stimulator placement Social History household members: spouse Smoking Status: Former smoker alcohol intake: never substance use type: does not use Physical Exam Narrative Back: Tenderness over the upper lumbar spine. Pain worse with percussion over L1 area. Hip provocative maneuvers negative. 4/5 strength right hip flexion. Otherwise 5/5 strength in the lower extremities. No loss of sensation No SI tenderness. SLR negative bilaterally. No GTB tenderness. Const alert Constitutional Narrative: Oriented x2. Unsure of location outside of [place], then prompted she said I guess a hospital. General Appearance: cooperative HEENT normocephalic Eyes EOMs intact bilaterally Resp normal respiratory effort and normal air movement Extremity General Extremity: Negative for edema Skin no rashes or lesions noted General Skin Exam: no breakdown Psych affect normal Appearance: appropriate Lab / Micro Data 04/03/24 05:20 04/03/24 05:20 Labs: Laboratory Results - last 24 hr 04/03/24 05:20: WBC 9.6, RBC 4.44, Hgb 11.8 L, Hct 37.2, MCV 83.8, MCH 26.6 L, M CHC 31.7 L, RDW Std Deviation 51.7 H, RDW Coeff of Su 17.1 H, Plt Count 417, MPV 8.7, Immature Gran % (Auto) 0.500, Neut % (Auto) 58.7, Lymph % (Auto) 25.4, [place] % (Auto) 10.8 H, Eos % (Auto) 3.7, Baso % (Auto) 0.9, Absolute Neuts (auto) 5.6, Absolute Lymphs (auto) 2.43, Nucleated RBC % 0.2, Sodium 138, Potassium 3.4 L, Chloride 105, Carbon Dioxide 23.0, Anion Gap 10, BUN 19 H, Creatinine 0.56, Estim Creat Clear Calc 41.63, Est GFR (MDRD) Af Amer 134, Est GFR (MDRD) Non-Af 111, BUN/Creatinine Ratio 33.9 H, Glucose 137 H, Calcium 9.0 Imaging 04/03/2024: CT lumbar spine FINDINGS: VERTEBRAE: There is acute/subacute compression fracture of L1 with 30% decreased height of the vertebral body. There is minimal retropulsion of the posterior wall. There is an old compression fracture of L5. No discrete lytic or blastic abnormality observed. There is 7 mm spondylolisthesis at L4-5. DISCS and SPINAL CANAL: Multilevel degenerative spondylosis more prominent at L2-3, L3-4, L4-5 resulting in [id number] spinal canal and neural foramina narrowing . VISUALIZED ABDOMEN: Visualized abdominal aorta is not dilated. There is no retroperitoneal adenopathy. CT/Spine Lumbar without Contrast IMPRESSION: There is acute/subacute compression fracture of L1 with 30% decreased height of the vertebral body. There is a nonobstructive stone in the right kidney measures 8 mm.
[2024-04-03 14:58] VITALS: BP 116/79; PULSE 96; RESP 16; TEMP 36.1; O2SAT 96
--- NOTE | 2024-04-03 15:12 | PCM.PN.DRR ---
Documented by User: Micaela Gilliam 04/03/24 15:37 TCU RX Drug Regimen Review Subjective/Objective Subjective/Objective: Subjective: TCU Admission. 78 YOF presented to the ER with a fall. Hospitalized for acute respiratory failure with hypoxia 2/2 pneumonia, complicated by L1 compression fracture, encephalopathy. Admitted to TCU with debility for strengthening and rehabilitation. Objective: Allergies lorazepam (From Ativan) Adverse Reaction (Intermediate, Verified 03/27/24 21:10) Other increased confusion and agitation haloperidol (From Haldol) Adverse Reaction (Verified 03/27/24 21:10) Other increased confusion and agitation Current Medications Generic Name Dose Route Start Last Admin Trade Name Freq PRN Reason Stop Dose Admin Acetaminophen 1,000 mg 04/03/24 08:00 04/03/24 08:13 Acetaminophen 500 Mg Tablet PO 1,000 mg Q8H TAMEKA Administration Ascorbic Acid 1,000 mg 04/03/24 08:00 04/03/24 08:14 Ascorbic Acid 500 Mg Tablet PO 1,000 mg BIDCM TAMEKA Administration Atorvastatin Calcium 80 mg 04/02/24 22:00 04/02/24 22:42 Atorvastatin Calcium 80 Mg Tablet PO 80 mg QHS TAMEKA Administration Bisacodyl 10 mg 04/03/24 10:00 04/03/24 08:16 Bisacodyl 10 Mg Suppository RC Not Given DAILY [facility] Cholecalciferol 50 mcg 04/03/24 10:00 04/03/24 08:14 Cholecalciferol (Vit D3) 25 Mcg Tablet (1,000 Units) PO 50 mcg DAILY TAMEKA Administration Ferrous Sulfate 325 mg 04/03/24 12:00 04/03/24 11:57 Ferrous Sulfate 325 Mg Tablet PO 325 mg Q48H TAMEKA Administration Fluoxetine HCl 40 mg 04/03/24 10:00 04/03/24 08:15 Fluoxetine Hcl 40 Mg Capsule PO 40 mg DAILY TAMEKA Administration Ibandronate Sodium 150 mg 04/06/24 06:00 Ibandronate Sodium 150 Mg Tablet PO QMONTH [facility] Lactulose 10 gm 04/02/24 18:20 Lactulose 20 Gm/30 Ml Udc PO TID PRN PRN constipation Levothyroxine Sodium 50 mcg 04/03/24 06:00 04/03/24 06:24 Levothyroxine 50 Mcg Tablet PO 50 mcg DAILY@0600 [facility] Administration Multivitamins 1 tablet 04/03/24 12:00 04/03/24 11:57 Multivitamins,Therapeutic Tablet PO 1 tablet LUNCH TAMEKA Administration Oxycodone HCl 2.5 mg 04/02/24 19:23 Oxycodone 5 Mg Tablet PO Q4H PRN PRN Pain Score 6-10 or Pre PT/OT Pantoprazole Sodium 20 mg 04/03/24 10:00 04/03/24 08:15 Pantoprazole Sodium 20 Mg Tablet PO 20 mg DAILY TAMEKA Administration Rasagiline 1 mg 04/03/24 10:00 04/03/24 08:16 Rasagiline Mesylate 1 Mg Tablet PO 1 mg DAILY TAMEKA Administration Senna/Docusate Sodium 2 tablet 04/02/24 22:00 04/03/24 08:15 Senna/Docusate Sodium 1 Tablet PO 2 tablet BID TAMEKA Administration Sodium Chloride 10 - 40 ml 04/02/24 18:53 0.9% Saline Lock 10 Ml Syringe IV UD PRN SALINE FLUSH Tizanidine HCl 2 mg 04/02/24 18:20 Tizanidine Hcl 2 Mg Tablet PO Q8H PRN PRN Muscle Spasm Tuberculin PPD 0.1 ml 04/10/24 10:00 Tuberculin,Purif.Prot.Deriv. 50 Tu/Ml Vial ID 04/10/24 10:01 X1 ONE Problem List Parkinson's disease dementia (Acute) Osteoporosis (Acute) GERD (gastroesophageal reflux disease) (Acute) Hypothyroidism (Acute) Depression (Acute) Hyperlipidemia (Acute) Encephalopathy (Acute) Compression fracture of L1 lumbar vertebra (Acute) Pneumonia (Acute) Acute respiratory failure with hypoxia (Acute) Fall (Acute) Debility (Acute) Vital Signs Temp Pulse Resp BP Pulse Ox O2 Del Method 97.0 F L 96 16 116/79 96 Room Air 04/03/24 14:58 04/03/24 14:58 04/03/24 14:58 04/03/24 14:58 04/03/24 14:58 04/03/24 14:58 Oxygen Delivery Method Room Air Weight: 51.256 kg Body Mass Index (BMI) 22.0 Sodium 138 mmol/L (136-145) 04/03/24 05:20 Potassium 3.4 mmol/L (3.5-5.1) L 04/03/24 05:20 Chloride 105 mmol/L (98-107) 04/03/24 05:20 Carbon Dioxide 23.0 mmol/L (21.0-32.0) 04/03/24 05:20 Anion Gap 10 (5-15) 04/03/24 05:20 BUN 19 mg/dL (7-18) H 04/03/24 05:20 Creatinine 0.56 mg/dL (0.55-1.02) 04/03/24 05:20 Est GFR (MDRD) Af Amer 134 mL/min (>60) 04/03/24 05:20 Est GFR (MDRD) Non-Af 111 mL/min (>60) 04/03/24 05:20 BUN/Creatinine Ratio 33.9 RATIO (10-20) H 04/03/24 05:20 Glucose 137 mg/dL (74-106) H 04/03/24 05:20 Assessment/Plan: 1. Pain: acetaminophen 1000mg PO Q8 and oxycodone 2.5mg PO Q4H PRN pain 6-10. Resident has not had any doses of oxycodone. Please continue to monitor for increased pain and PRN usage. 2. Bowel: senna/docusate 2T PO BID, bisacodyl 10mg RC daily and lactulose 10gm PO TID PRN constipation. Resident has not had any PRN doses. Last documented bowel movement was 04/02. Please continue to monitor for constipation and PRN usage. 3. Hyperlipidemia: atorvastatin 80mg PO QHS. Please consider ordering a lipid panel as there is no level in the chart. Thanks. Please continue to monitor for muscle pain. 4. Hypothyroidism: levothyroxine 50mcg PO daily. Please continue to monitor TSH (last 03/28/24) and S/S of hypo/hyperthyroidism. 5. Parkinson Disease (s/p deep brain stimulator): rasagiline 1mg PO daily. Please continue to monitor for headaches, paresthesias and vertigo. 6. Iron deficiency anemia: ferrous sulfate 325mg PO Q48. Please consider ordering iron study as there is no previous study in the chart. Thanks. Please continue to monitor hemoglobin (last 11.8g/dL), dark stools and constipation. 7. Osteoporosis: ibandronate 150mg PO monthly. Please continue to monitor for jaw pain, BMD and GI upset. Please administer first thing in the morning with a glass of water 1 hour prior to eating. Do not lay down for 1 hour following administration. 8. GERD: pantoprazole 20mg PO daily. Please continue to monitor for S/S of GERD and diarrhea (BEERs medication). 9. Muscle spasm: tizanidine 2mg PO Q8H PRN muscle spasms. No PRN doses have been given. Please continue to monitor for muscle spasms and PRN usage. 10. Vitamin C/D deficiencies and nutrition: ascorbic acid 1000mg PO BIDCM, cholecalciferol 50mcg PO daily and multivitamin 1T PO DAILYCM. Please consider ordering a vitamin D level as there is no level in the chart. Thanks. Assessment/Plan for indications treated with psychotropic medications: 1. Depression: fluoxetine 40mg PO daily. Please see physician note regarding GDR. Please continue to monitor for suicidal ideation (black box warning), falls/fractures (BEERs medication) and sodium (last 138mmol/L). 2. Hallucinations 2/2 Parkinson disease: pimavanserin 34mg PO QHS. Please see physician note regarding GDR. Please continue to monitor for S/S of stroke (BEERs medication), dementia/delirium (BEERs medication), falls/fractures (BEERs medication) and sodium (last 138mmol/L). Medical chart and medication regimen reviewed. The following medication irregularities or issues were identified: 1. Atorvastatin 80mg PO QHS. Please consider ordering a lipid panel as there is no level in the chart. Thanks. 2. Ferrous sulfate 325mg PO Q48. Please consider ordering iron study as there is no previous study in the chart. Thanks. 3. Cholecalciferol 50mcg PO daily. Please consider ordering a vitamin D level as there is no level in the chart. Thanks. Date Date of Note:: 04/03/24 Documented by User: Dr. Wilfrid Thompson MD 04/03/24 16:25 TCU RX Drug Regimen Review Provider Comments Provider responsibility Provider Comments to Recommendations by Pharmacy: Agree
[2024-04-03] MEDS: Ensure Plus High Protein 120 ML LIQUID PO (16:54)
[2024-04-03] MEDS: Atorvastatin Calcium 80 MG Tablet PO (21:03)
[2024-04-03] MEDS: PIMAVANSERIN TARTRATE 34 MG PO (21:03)
[2024-04-04] MEDS: Levothyroxine 50 MCG Tablet PO (05:20)
[2024-04-04 07:06] LABS: Anion Gap 9 (5-15); BUN 19 mg/dL (7-18); BUN/Creat Ratio 31.4 RATIO (10-20); Calcium,Total 8.8 mg/dL (8.5-10.1); Chloride 106 mmol/L (98-107); Cholesterol 157 mg/dL (200); Creatinine, Serum 0.61 mg/dL (0.55-1.02); EST Glomerular Filtration Rate 101 mL/min (>60); Est Glom Filt Rate - Afr Amer 123 mL/min (>60); Estimated Creatinine Clearance 41.63 ml/min; Glucose 145 mg/dL (74-106); High Density Lipoprotein 42 mg/dL; Iron 39 ug/dL (50-170); Iron Binding Capacity,Total 338 ug/dL (250-450); PERCENT IRON SATURATION 11.5 % (15.0-55.0); Potassium 3.3 mmol/L (3.5-5.1); Sodium Level 137 mmol/L (136-145); Triglycerides 143 mg/dL; Very Low Density Lipoprotein 29 mg/dL (5-40)
[2024-04-04 08:36] VITALS: BP 110/67; PULSE 87; RESP 16; TEMP 36.7; O2SAT 94
--- NOTE | 2024-04-04 08:41 | NURSING ---
Pt NPO today per Dr Gagnon, going for Kyphoplasty at 1pm today, updated. pt resting in bed with eyes closed. requesting that we hold her meds until after procedure.
[2024-04-04] MEDS: Potassium Chloride Oral Tablet 20 MEQ PO (10:15)
[2024-04-04] MEDS: 0.9% Saline Lock 10 ML Syringe IV (10:46)
[2024-04-04 10:47] LABS: Vitamin D,25 Hydroxy 91.2 ng/mL
[2024-04-04 10:55] VITALS: PULSE 90; RESP 16; O2SAT 92
--- NOTE | 2024-04-04 12:10 | NURSING ---
pt off unit via bed to surgery, at bedside
--- NOTE | 2024-04-04 12:16 | NURSING ---
Factory Representative Note; Activity Asset: Michael Boyle is independent in her choice of daily activities w/reminders. She will use her cell phone to call family, watch tv, read and visit w/family and friends. She did state she welcomes visits w/the dairy farmworker and therapy dog when available. Staff will remind her of weekly activities, encourage group and respect her right o say no.
--- NOTE | 2024-04-04 16:15 | NURSING ---
pt returned from surgery
[2024-04-04 16:19] VITALS: BP 141/87; PULSE 91; RESP 18; TEMP 36.6; O2SAT 93
[2024-04-04] MEDS: Multivitamins,Therapeutic Tablet 1 TABLET PO (17:38)
[2024-04-04] MEDS: Pantoprazole Sodium 20 MG Tablet PO (17:38)
[2024-04-04] MEDS: Cholecalciferol (VIT D3) 25 MCG TABLET (1,000 UNITS) 50 MCG PO (17:38)
[2024-04-04] MEDS: Fluoxetine HCl 40 MG CAPSULE PO (17:38)
[2024-04-04] MEDS: Acetaminophen 500 MG Tablet 1000 MG PO ×2 (17:38→23:05)
[2024-04-04] MEDS: Ensure Plus High Protein 120 ML LIQUID PO ×2 (17:39→21:18)
[2024-04-04] MEDS: Ascorbic Acid 500 MG Tablet 1000 MG PO (17:39)
[2024-04-04] MEDS: PIMAVANSERIN TARTRATE 34 MG PO (21:18)
[2024-04-04] MEDS: Atorvastatin Calcium 80 MG Tablet PO (21:18)
[2024-04-05] MEDS: Levothyroxine 50 MCG Tablet PO (06:32)
[2024-04-05] MEDS: Ensure Plus High Protein 120 ML LIQUID PO ×3 (06:32→16:51)
[2024-04-05] MEDS: Acetaminophen 500 MG Tablet 1000 MG PO ×3 (06:32→20:46)
[2024-04-05] MEDS: 0.9% Saline Lock 10 ML Syringe IV ×2 (06:33→20:54)
[2024-04-05] MEDS: Potassium Chloride Oral Tablet 20 MEQ PO (08:55)
[2024-04-05] MEDS: Pantoprazole Sodium 20 MG Tablet PO (08:55)
[2024-04-05] MEDS: Ascorbic Acid 500 MG Tablet 1000 MG PO ×2 (08:55→16:51)
[2024-04-05] MEDS: Cholecalciferol (VIT D3) 25 MCG TABLET (1,000 UNITS) 50 MCG PO (09:13)
[2024-04-05] MEDS: Fluoxetine HCl 40 MG CAPSULE PO (09:13)
--- NOTE | 2024-04-05 10:03 | SP.MBSS_ITS ---
Modified Barium Swallow Patient Information Study Date: 04/05/24 Study Time: 09:30 Direct Billable Minutes: 100 Total Minutes procedure & reportin Diagnosis: G20 - Parkinson's disease Referring Physician: Wilfrid Thompson Chi Reason for Referral: Objectively assess swallow function, assess risk for aspiration, and determine recommendations for least restrictive diet textures and compensatory strategies to improve safety of swallow. Medical History: 78 year old female with past medical history re: hyperlipidemia, depression, hypothyroidism, GERD, osteoporosis, Parkinson's disease dementia hospitalized for acute respiratory failure with hypoxia 2/2 pneumonia, complicated by L1 compression fracture, encephalopathy. Admitted to TCU with debility, here for rehabilitation, strengthening, prior to discharge home with . Pt. was seen on the acute side from 03/29/24 - 04/01/24 for oropharyngeal dysphagia / diet tolerance. 03/29/24 Chest X-Ray did show lower lobe infiltrate, concern for aspiration PNA d/t known Parkinson's disease diagnosis. Prefers softer foods d/t difficulty chewing (missing teeth) per pt. Given pt.'s hx - DIRECT RESPONSE CONSULTANT recommended instrumental swallow assessment to determine the appropriate diet and intervention for oropharyngeal dysphagia. Current Diet Ordered: IDDSI Easy to Chew (Level 7); Thin Liquids Dentition: WNL (missing teeth, prefers softer foods due to this) Mental Status: WNL (cognitive impairment secondary to Parkinson's disease dementia) Respiratory Status: Oxygenating on Room Air Penetration-Aspiration Scale Penetration-Aspiration Scale: OBJECTIVE ASSESSMENT OF SWALLOW FUNCTION (QUANTITATIVE ? PER TRIAL): PENETRATION / ASPIRATION SCALE (HOBBS): 1 = does not enter airway 2 = enters airway/above vocal folds/ejected 3 = enters airway/above vocal folds/not ejected 4 = enters airway/contacts vocal folds/ejected 5 = enters airway/contacts vocal folds/not ejected 6 = enters airway/below vocal folds/ejected 7 = enters airway/below vocal folds/not ejected despite effort 8 = enters airway/below vocal folds/no effort VIDEOFLOROSCOPIC SCALE SCORE (HOBBS): Grade I = aspiration of material that has penetrated into the laryngeal vestibule, intact cough reflex Grade II = aspiration < 10 % of the bolus, intact cough reflex Grade III = aspiration of < 10 % of the bolus, reduced cough reflex or aspiration of > 10 % of the bolus, intact cough reflex Grade IV = aspiration of > 10 % of the bolus, reduced cough reflex Penetration-Aspiration Scale Score Thin Liquid via teaspoon: Result: 1= does not enter airway Thin Liquid via small single sip: cup: Result: 1= does not enter airway Thin Liquid via sequential sips: cup: Result: 2= enter airway/above vocal folds/ejected (trace laryngeal penetration observed on the 2nd and 3rd swallow) [place] Thick Liquid via large single sip: cup: Result: 1= does not enter airway [place] Thick Liquid via small single sip: cup: Result: 1= does not enter airway Pudding via teaspoon: Result: 1= does not enter airway Cookie: Result: 1= does not enter airway Thin Liquid via sequential sips:straw: Result: 1= does not enter airway Barium Tablet: Result: 1= does not enter airway Oral Phase Labial Seal: Interlabial escape, no progression to anterior lip Tongue Control During Bolus Hold: Posterior escape of greater than half of bolus Bolus Preparation/Mastication: Slow prolonged chewing/mashing with complete recollection Bolus Transport/Lingual Motion: Repetitive/disorganized tongue motion Oral Residue: Trace residue lining oral structures Pharyngeal Phase Initiation of Pharyngeal Swallow: Bolus head in pyriforms Soft Palate Elevation: No bolus between soft palate and pharyngeal wall Laryngeal Elevation: Partial superior movement thyroid cart/partial apprx aryt- epig petiole Anterior Hyoid Excursion: Complete anterior movement Epiglottic Movement: Complete inversion Laryngeal Vestibule Closure at Height of Swallow: Incomplete; narrow column of air/contrast in laryngeal vestibule Pharyngeal Stripping Wave: Present - diminished Pharyngoesophageal Segment Opening: Complete distension and complete duration; no obstruction of flow Tongue Base Retraction: Trace column of contrast between tongue base & post. pharyngeal wall Pharyngeal Residue: Trace residue within or on pharyngeal structures Esophageal Phase Esophageal Clearance: Esophageal retention Diagnosis/Impression Diagnosis: mild oropharyngeal dysphagia (R13.12) Impression: Pt. presents w/ mild oropharyngeal dysphagia. Oral phase primarily marked by... - mild mastication insufficiency d/t dentition. Pt. reports eating a softer diet d/t having missing teeth. - suboptimal lingual control w/ lingual pumping observed w/ pudding and barium tablet trial. - premature bolus loss to the vallecula and pyriforms observed w/ all consistencies. - trace oral residue post deglutition which cleared w/ I use of double swallow. Pharyngeal phase primarily marked by... - delayed pharyngeal onset timing resulting in suboptimal bolus location upon swallow onset. - mildly reduced airway closure d/t decreased laryngeal elevation. - trace pharyngeal residues in the vallecula and pyriforms after the swallow. Increased residues w/ sequential sips and thicker viscosities, again which cleared w/ I use of double swallow. Esophageal phase primarily marked by... - esophageal retention with pudding trial which remained in the mid/lower esophagus. Adequate clearance w/ use of liquid wash (DIRECT RESPONSE CONSULTANT prompted liquid wash). - did not have any esophageal retention with cookie trial. Recommendations Diet: Regular Textures (IDDSI Easy to Chew (Level 7)) and Thin Liquids Compensatory Strategies: Small Bites, Small Sips, Slow Rate, Multiple Swallows, Alternate bites/solids and sips/liquids, Sitting upright and Remain sitting upright for 30 minutes after PO intake Supervision: Assist as needed Recommend Repeat Modified Barium Swallow: TBD Need for Skilled Speech Therapy Services: Yes Comment: Pt. would benefit from skilled speech-language intervention targeting continued diet texture management, training and implementation of recommended compensatory strategies, and training and implementation of oropharyngeal strengthening exercises (lingual control/strength, CTAR, effortful, effortful breath hold, Leanne, Maryana) Recommended Referrals: GI Consult (if worsening s/sx of reflux ) Education Completed: 1. Described result of evaluation., 2. Pt understands evaluation & agrees with goals and treatment plan. and 4. Family/caregivers understand evaluation & agree w/ goals & tx plan. Status Active ST Patient: Active Contact Information [facility] Speech Therapy:: Deb Sidhu M.A. [facility]-DIRECT RESPONSE CONSULTANT Speech-Language Pathologist [facility] [address] [place] [address] [email or web address] [phone]
[2024-04-05] MEDS: Ferrous Sulfate 325 MG Tablet PO (11:55)
[2024-04-05] MEDS: Multivitamins,Therapeutic Tablet 1 TABLET PO (12:59)
[2024-04-05 16:00] VITALS: BP 109/71; PULSE 91; RESP 15; TEMP 35.8; O2SAT 90
--- NOTE | 2024-04-05 17:27 | CASEMGMT ---
Social Work- TCU Admit Note SW met with patient at bedside in an attempt to complete initial intake assessment. Patient is A&Ox2; name and place. Disoriented to time and situation. SANDRA contacted patient's , Anders Prado via phone to complete assessment. Anders confirmed patient demographics and contact information. Anders confirmed that prior to admission, the patient was residing in home with . Anders reports 3 falls in home prior to admission due to patient worsening cognition. Patient does not remember to use walker in home. Anders informed SANDRA that the patient does have an advanced directive with Anders Prado as Primary decision maker and daughter, as secondary. SANDRA educated Anders of patient's [facility] insurance coverage and benefits; next review date 04/08. SANDRA notified Anders that continued coverage for stay is not guaranteed. Patient's husgand goal is for patient to return home with home health care services with preferred provider [facility]. SANDRA will continue to follow to provide support for discharge planning. BIM (08/20) [address]
[2024-04-05] MEDS: oxyCODONE 5 MG Tablet 2.5 MG PO (19:43)
[2024-04-05 20:45] VITALS: PULSE 84; RESP 16
[2024-04-05] MEDS: Atorvastatin Calcium 80 MG Tablet PO (20:46)
[2024-04-05] MEDS: PIMAVANSERIN TARTRATE 34 MG PO (20:47)
[2024-04-05 22:10] VITALS: BP 112/71; PULSE 86; TEMP 36.2; O2SAT 91
--- NOTE | 2024-04-05 23:01 | NURSING ---
At 2200, REGENERATION OPERATOR assisted patient back into bed after assisting her to the restroom. Upon transfer into the bed, REGENERATION OPERATOR witnessed patient lose trunk control, resulting in her leaning back and bumping her head on her side table. Patient has diagnosis of Parkinson's disease, and per dayshift operation specialist, she is known to have poor trunk control. Patient denied pain and was adjusted comfortably in bed. No injuries observed. Patient's orientation assessed, A/O x 2 per baseline. Vitals stable, refer to worklist. Dr. Thompson consulted, N.O. for neuro checks per protocol. Patient's call light in reach, bed alarm on, patient denies further assistance. Continue neuro checks per protocol.
[2024-04-06] MEDS: Ensure Plus High Protein 120 ML LIQUID PO ×4 (05:19→21:18)
[2024-04-06] MEDS: IBANDRONATE SODIUM 150 MG PO (05:19)
[2024-04-06] MEDS: Levothyroxine 50 MCG Tablet PO (05:20)
[2024-04-06] MEDS: Acetaminophen 500 MG Tablet 1000 MG PO ×3 (05:21→21:14)
[2024-04-06 05:27] VITALS: RESP 16
[2024-04-06 06:39] LABS: Anion Gap 6 (5-15); BUN 14 mg/dL (7-18); Calcium,Total 8.2 mg/dL (8.5-10.1); Chloride 106 mmol/L (98-107); Creatinine, Serum 0.58 mg/dL (0.55-1.02); EST Glomerular Filtration Rate 106 mL/min (>60); Est Glom Filt Rate - Afr Amer 128 mL/min (>60); Estimated Creatinine Clearance 41.63 ml/min; Glucose 174 mg/dL (74-106); Potassium 3.3 mmol/L (3.5-5.1); Sodium Level 138 mmol/L (136-145)
[2024-04-06] MEDS: Potassium Chloride Oral Tablet 20 MEQ PO ×2 (08:24→16:53)
[2024-04-06] MEDS: Ascorbic Acid 500 MG Tablet 1000 MG PO ×2 (08:25→16:53)
[2024-04-06] MEDS: Pantoprazole Sodium 20 MG Tablet PO (09:56)
[2024-04-06] MEDS: Cholecalciferol (VIT D3) 25 MCG TABLET (1,000 UNITS) 50 MCG PO (09:57)
[2024-04-06] MEDS: Fluoxetine HCl 40 MG CAPSULE PO (09:57)
[2024-04-06] MEDS: Senna/Docusate Sodium 1 Tablet 2 TABLET PO ×2 (09:58→21:14)
[2024-04-06] MEDS: Potassium Chloride Oral Tablet 20 MEQ 40 MEQ PO (10:58)
[2024-04-06] MEDS: Multivitamins,Therapeutic Tablet 1 TABLET PO (12:18)
[2024-04-06 14:39] VITALS: BP 94/53; PULSE 91; RESP 16; TEMP 36.9; O2SAT 93
[2024-04-06] MEDS: oxyCODONE 5 MG Tablet 2.5 MG PO ×2 (15:18→21:19)
[2024-04-06] MEDS: Atorvastatin Calcium 80 MG Tablet PO (21:14)
[2024-04-06] MEDS: tiZANidine HCl 2 MG Tablet PO (21:15)
[2024-04-06] MEDS: PIMAVANSERIN TARTRATE 34 MG PO (21:15)
[2024-04-07 06:23] VITALS: BP 115/71; PULSE 81
[2024-04-07] MEDS: Ensure Plus High Protein 120 ML LIQUID PO ×3 (06:25→16:37)
[2024-04-07] MEDS: Acetaminophen 500 MG Tablet 1000 MG PO ×3 (06:25→20:59)
[2024-04-07] MEDS: 0.9% Saline Lock 10 ML Syringe IV (06:25)
[2024-04-07] MEDS: Levothyroxine 50 MCG Tablet PO (06:25)
[2024-04-07] MEDS: Potassium Chloride Oral Tablet 20 MEQ PO ×2 (08:37→16:36)
[2024-04-07] MEDS: Ascorbic Acid 500 MG Tablet 1000 MG PO ×2 (08:37→16:37)
[2024-04-07] MEDS: Pantoprazole Sodium 20 MG Tablet PO (10:38)
[2024-04-07] MEDS: Cholecalciferol (VIT D3) 25 MCG TABLET (1,000 UNITS) 50 MCG PO (10:39)
[2024-04-07] MEDS: Fluoxetine HCl 40 MG CAPSULE PO (10:39)
[2024-04-07] MEDS: Senna/Docusate Sodium 1 Tablet 2 TABLET PO ×2 (10:39→20:58)
[2024-04-07] MEDS: tiZANidine HCl 2 MG Tablet PO ×2 (10:42→18:12)
[2024-04-07] MEDS: Ferrous Sulfate 325 MG Tablet PO (12:13)
[2024-04-07] MEDS: Multivitamins,Therapeutic Tablet 1 TABLET PO (12:13)
[2024-04-07] MEDS: oxyCODONE 5 MG Tablet 2.5 MG PO (12:54)
[2024-04-07 15:03] VITALS: BP 101/66; PULSE 79; RESP 14; TEMP 36.1; O2SAT 94
[2024-04-07] MEDS: Atorvastatin Calcium 80 MG Tablet PO (20:58)
[2024-04-07] MEDS: PIMAVANSERIN TARTRATE 34 MG PO (20:59)
[2024-04-07 22:00] VITALS: RESP 16
[2024-04-08] MEDS: Levothyroxine 50 MCG Tablet PO (05:46)
[2024-04-08] MEDS: Acetaminophen 500 MG Tablet 1000 MG PO ×3 (05:46→20:18)
[2024-04-08] MEDS: Ensure Plus High Protein 120 ML LIQUID PO ×3 (05:46→20:17)
[2024-04-08 06:18] LABS: Anion Gap 8 (5-15); BUN 11 mg/dL (7-18); BUN/Creat Ratio 20.4 RATIO (10-20); Calcium,Total 8.6 mg/dL (8.5-10.1); Chloride 107 mmol/L (98-107); Creatinine, Serum 0.54 mg/dL (0.55-1.02); EST Glomerular Filtration Rate 116 mL/min (>60); Est Glom Filt Rate - Afr Amer 140 mL/min (>60); Estimated Creatinine Clearance 41.63 ml/min; Glucose 131 mg/dL (74-106); Potassium 3.9 mmol/L (3.5-5.1); Sodium Level 138 mmol/L (136-145)
[2024-04-08] MEDS: Senna/Docusate Sodium 1 Tablet 2 TABLET PO ×2 (08:55→20:18)
[2024-04-08] MEDS: Ascorbic Acid 500 MG Tablet 1000 MG PO ×2 (08:55→17:44)
[2024-04-08] MEDS: Fluoxetine HCl 40 MG CAPSULE PO (08:55)
[2024-04-08] MEDS: Potassium Chloride Oral Tablet 20 MEQ PO ×2 (08:55→17:44)
[2024-04-08] MEDS: Cholecalciferol (VIT D3) 25 MCG TABLET (1,000 UNITS) 50 MCG PO (08:55)
[2024-04-08] MEDS: Pantoprazole Sodium 20 MG Tablet PO (08:56)
[2024-04-08 10:00] VITALS: RESP 14; O2SAT 95
[2024-04-08] MEDS: oxyCODONE 5 MG Tablet 2.5 MG PO (11:19)
[2024-04-08] MEDS: tiZANidine HCl 2 MG Tablet PO (11:19)
--- NOTE | 2024-04-08 11:42 | NURSING ---
Addendum entered by Geneva Angela 04/10/24 08:36: later decided he didn't want patient to receive at this time. Pharmacy updated and vaccine order dc'd. Original Note: Discussed covid vaccine with patient and , both would like patient to receive while here.
[2024-04-08] MEDS: Multivitamins,Therapeutic Tablet 1 TABLET PO (13:11)
[2024-04-08 15:21] VITALS: BP 110/72; PULSE 80; RESP 12; TEMP 36.6; O2SAT 96
[2024-04-08] MEDS: Atorvastatin Calcium 80 MG Tablet PO (20:17)
[2024-04-08] MEDS: PIMAVANSERIN TARTRATE 34 MG PO (20:17)
[2024-04-09] MEDS: Ensure Plus High Protein 120 ML LIQUID PO ×3 (05:32→17:32)
[2024-04-09] MEDS: Levothyroxine 50 MCG Tablet PO (05:32)
[2024-04-09] MEDS: Acetaminophen 500 MG Tablet 1000 MG PO ×3 (05:33→21:22)
[2024-04-09 08:53] VITALS: BP 114/69; PULSE 88; RESP 18; TEMP 36.6; O2SAT 92
[2024-04-09] MEDS: Potassium Chloride Oral Tablet 20 MEQ PO ×2 (08:58→17:33)
[2024-04-09] MEDS: Cholecalciferol (VIT D3) 25 MCG TABLET (1,000 UNITS) 50 MCG PO (08:59)
[2024-04-09] MEDS: Pantoprazole Sodium 20 MG Tablet PO (08:59)
[2024-04-09] MEDS: Fluoxetine HCl 40 MG CAPSULE PO (08:59)
[2024-04-09] MEDS: Senna/Docusate Sodium 1 Tablet 2 TABLET PO (08:59)
[2024-04-09] MEDS: Ascorbic Acid 500 MG Tablet 1000 MG PO ×2 (08:59→17:34)
[2024-04-09] MEDS: Multivitamins,Therapeutic Tablet 1 TABLET PO (12:06)
[2024-04-09] MEDS: Ferrous Sulfate 325 MG Tablet PO (12:06)
[2024-04-09 12:50] VITALS: BMI 21.4
--- NOTE | 2024-04-09 15:46 | NURSING ---
pt c/o abd pain, constant dull ache 06/15. pt and requesting pain medication, attempted to administer 2.5mg oxyir and stopped and asked what nurse was administering. states he had requested that narcotics not be given. wasted 2.5mg oxyir with battery charger tester nurse. tylenol given per order. message left for Dr Thompson regarding Discontinuing oxyir d/t causing increased confusion & continues with abdominal pain. pt resting in bed on rt side, attentive to 's needs. call light in reach, alarms in place.
[2024-04-09 16:00] VITALS: RESP 16
[2024-04-09] MEDS: tiZANidine HCl 2 MG Tablet PO (17:08)
--- NOTE | 2024-04-09 18:24 | CASEMGMT ---
Social Work SW met with patient at bedside to complete MDS. Patient BIM (06/20) and PhQ-2 () Patient PhQ scored 13 for moderate depression. Patient informed SW that she felt Depressed everyday due to not knowing what's going on. Patient informed SW that she feels tired every day due to moving everywhere and not feeling good. Patient describes having a poor appetite due to procedure and the patient stated I can't swallow. Patient informed SW that she is having trouble concentrating on everything. Patient is frequently disoriented during the day. Patient informed SW that she is moving slower. Patient informed SW that she was in pain. Patient declined eating food at bedside due to concerns for swallowing issues. Patient's depression is related to functional decline, medical condition, and environmental changes. SW will consult dietary and speech during care plan meeting. SW will continue to follow. DANIEL [address]
[2024-04-09] MEDS: 0.9% Saline Lock 10 ML Syringe IV (21:21)
[2024-04-09] MEDS: Atorvastatin Calcium 80 MG Tablet PO (21:22)
[2024-04-09] MEDS: PIMAVANSERIN TARTRATE 34 MG PO (21:22)
[2024-04-10] MEDS: Acetaminophen 500 MG Tablet 1000 MG PO ×3 (05:34→21:16)
[2024-04-10] MEDS: Ensure Plus High Protein 120 ML LIQUID PO ×3 (05:34→21:17)
[2024-04-10] MEDS: Levothyroxine 50 MCG Tablet PO (05:34)
[2024-04-10 05:50] VITALS: O2SAT 92
[2024-04-10 05:54] LABS: Absolute Lymphocyte Count 2.42 X10^3/uL (0.83-4.51); Absolute Neutrophil Count 4.3 X10^3/uL (2.0-7.7); Basophil# 0.05 X10^3/uL; Basophil% 0.7 % (0-1); Eosinophil# 0.17 X10^3/uL; Eosinophils% 2.2 % (0-5); Hematocrit 35.6 % (37-47); Hemoglobin 11.1 g/dL (12.0-15.0); Lymphocyte # 2.42 X10^3/ul (0.83-4.51); Lymphocyte % 31.9 % (19-41); Mean Corp Hgb Conc 31.2 g/dL (32-36); Mean Corpuscular Volume 86.6 fL (81-99); Mean Platelet Vol. 8.5 fl (6.2-12.0); Monocyte# 0.65 X10^3/uL; Monocyte% 8.6 % (0-10); NRBC Flagged by Analyzer 0 % (0-5); Neutrophil # 4.27 X10^3/uL (2.7-7.7); Neutrophil % 56.3 % (47-70); Platelet Count 495 K/mm3 (150-450); RBC Distribution Width CV 17.3 % (11.6-14.6); RBC Distribution Width SD 53.5 fl (35.1-43.9); Red Blood Count 4.11 M/mm3 (4.2-5.4); White Blood Count 7.6 K/mm3 (4.4-11.0)
[2024-04-10 06:08] VITALS: BP 138/75; PULSE 67; RESP 16; O2SAT 93
[2024-04-10] MEDS: Pantoprazole Sodium 20 MG Tablet PO (08:32)
[2024-04-10] MEDS: Cholecalciferol (VIT D3) 25 MCG TABLET (1,000 UNITS) 50 MCG PO (08:32)
[2024-04-10] MEDS: Potassium Chloride Oral Tablet 20 MEQ PO ×2 (08:32→17:40)
[2024-04-10] MEDS: Fluoxetine HCl 40 MG CAPSULE PO (08:32)
[2024-04-10] MEDS: Ascorbic Acid 500 MG Tablet 1000 MG PO ×2 (08:33→17:39)
[2024-04-10] MEDS: Senna/Docusate Sodium 1 Tablet 2 TABLET PO ×2 (08:34→21:16)
--- NOTE | 2024-04-10 08:39 | NURSING ---
Promotions Director Note, MDS for 04/09/2024 Complete
[2024-04-10 09:04] LABS: Anion Gap 6 (5-15); BUN 15 mg/dL (7-18); BUN/Creat Ratio 28.2 RATIO (10-20); Calcium,Total 8.7 mg/dL (8.5-10.1); Chloride 106 mmol/L (98-107); Creatinine, Serum 0.53 mg/dL (0.55-1.02); EST Glomerular Filtration Rate 118 mL/min (>60); Est Glom Filt Rate - Afr Amer 143 mL/min (>60); Estimated Creatinine Clearance 41.63 ml/min; Glucose 130 mg/dL (74-106); Potassium 3.8 mmol/L (3.5-5.1); Sodium Level 137 mmol/L (136-145)
--- NOTE | 2024-04-10 09:22 | CASEMGMT ---
Social Work- Care Planning IDT met with patient and , Anders at bedside and Any lopes on the phone to complete care planning. Discussed patient progress with therapy (PT/OT/ST). Patient currently on ensures with regular diet. Patient completed MBS with speech therapy; patient has some minimum swallowing concerns that required modification. Per Speech Therapy, patient scored a 20 out of 50 on Brief Cognitive Assessment Tool (BCAT). Patient's informed team that the patient has increased swallowing issues at home, but seem to improved while on TCU. Activities will continue to work with patient to increase engagement with community. Patient requires max assist with supine mobility. Sitting to standing patient is contact guard assist; with ambulation patient is walking 280ft with contact guard. Patient has imbalance while walking out of bathroom. Patient is SBA assist with grooming and UE dressing. LE patient will require little assistance with dressing. Due to cognition and concerns for balance patient will require 24/hr care with home health or outpatient therapy. SANDRA educated patient and of [facility] insurance coverage and benefits; next review date 04/12. Patient's states that he cannot provide 24/hr care, but daughterAny works from home and provide supervision. Patient goal is to return home. SANDRA discussed discharge plans with . Patient's requested for home health care to be arranged. SANDRA provided information regarding home health aid to assist with caregiver support in the home. SANDRA will continue to follow to support discharge planning. [address]
[2024-04-10] MEDS: Tuberculin,Purif.prot.deriv. 50 TU/ML Vial 0.1 ML ID (10:02)
--- NOTE | 2024-04-10 11:41 | NURSING ---
Received auth for CT abd/pelvis with contrast for abdominal pain. Case #[id number]. Auth #[id number]. Order faxed to CT.
[2024-04-10 16:00] VITALS: BP 106/61; PULSE 80; RESP 16; TEMP 36.6; O2SAT 95
[2024-04-10] MEDS: 0.9% Saline Lock 10 ML Syringe IV (21:13)
[2024-04-10] MEDS: PIMAVANSERIN TARTRATE 34 MG PO (21:16)
[2024-04-10] MEDS: Atorvastatin Calcium 80 MG Tablet PO (21:16)
[2024-04-11] MEDS: Acetaminophen 500 MG Tablet 1000 MG PO ×3 (05:31→20:58)
[2024-04-11] MEDS: Ensure Plus High Protein 120 ML LIQUID PO ×4 (05:31→20:56)
[2024-04-11] MEDS: Levothyroxine 50 MCG Tablet PO (05:31)
--- NOTE | 2024-04-11 08:35 | CASEMGMT ---
Social Work SANDRA was approached by patient's , Anders Prado requesting to arrange discharge to home. Anders informed SANDRA that he feels the patient would improve cognitively. Anders informed SANDRA that he does not want to discharge patient prior to being ready, if others providing care for patient believes she is not ready to discharge. Anders inquired about who can he speak with to determine, if she is physically appropriate to discharge. SANDRA informed Anders that he can speak with physical therapy services. In addition, Anders inquired about pain management for patient. SANDRA informed Anders that Physician costume director will need to be consulted to discuss pain management. Anders informed SANDRA that he would like to take patient home as soon as possible. SANDRA spoke with PTJonathan who informed SANDRA that if the patient has 24/hr care; patient is appropriate to physically return home with adequate support. SANDRA spoke with RNGeneva who informed SANDRA that a Physician has been consulted due to kidney stones. Patient has kidney stone causing pain. 1616- SANDRA spoke with Anders. Anders informed SANDRA that he is agreeable to have patient remain on TCU until Physician address kidney stones concerns. [address]
[2024-04-11] MEDS: Ascorbic Acid 500 MG Tablet 1000 MG PO ×2 (09:06→17:10)
[2024-04-11] MEDS: Cholecalciferol (VIT D3) 25 MCG TABLET (1,000 UNITS) 50 MCG PO (09:07)
[2024-04-11] MEDS: Fluoxetine HCl 40 MG CAPSULE PO (09:07)
[2024-04-11] MEDS: Potassium Chloride Oral Tablet 20 MEQ PO ×2 (09:07→17:10)
[2024-04-11] MEDS: Pantoprazole Sodium 20 MG Tablet PO (09:07)
[2024-04-11] MEDS: Senna/Docusate Sodium 1 Tablet 2 TABLET PO (09:07)
[2024-04-11] MEDS: tiZANidine HCl 2 MG Tablet PO (09:07)
--- NOTE | 2024-04-11 09:51 | NURSING ---
Spoke with via phone as SW mentioned he wanted to take patient home. was aware of CT scan results and that Dr. Lyles had been consulted. Did say to RN he doesn't want to take her home before she's ready. Encouraged him to wait to see what Dr. Lyles says, he agreed. He will be in later today, said not to bother calling him if physician comes by, he will get an update when he is on the unit this afternoon.
--- NOTE | 2024-04-11 11:58 | PCM.CONS.GEN ---
Assessment & Plan Assessment/Plan (1) Kidney stone: PLAN: Plan Obtain KUB Okay to follow-up as an outpatient My suspicion is that her discomfort has been secondary to her recent surgical intervention in addition to her constipation as she has no flank discomfort. The stone has likely been present for some time. There is no plan for intervention during this admission. Please call with any further questions or concerns. HPI Consult Data Date of Consult: 04/11/24 HPI Narrative Reason for Consultation: Right nonobstructing stone with back pain HPI Narrative: EBONIE LIM, is a 78 F who is in the transitional care unit following surgical intervention for lumbar spine fractures. She has been having back pain and also lower abdominal pain. She reports that the pain is less today after having a bowel movement. She had a CT scan done to evaluate the pain further and it revealed a 6 mm nonobstructing right renal stone. The patient does have some dementia, but has no recollection of kidney stones in the past. She has had an occasional urinary tract infection in her lifetime but not recurrent. She denies hematuria or difficulty with voiding. She has been having some issues with constipation. [facility] Medical History (Updated 04/11/24 @ 12:[address] Merlyn Lyles MD) Kidney stone Closed compression fracture of L1 vertebra Fall Mechanical complication of deep brain stimulator Parkinson's disease Hypothyroidism Hypothyroidism Anxiety Depression Osteoporosis Former smoker GERD (gastroesophageal reflux disease) Hypercholesterolemia Parkinson disease Home Medications ?Medication ?Instructions ?Recorded ?Last Taken ?Type atorvastatin 80 mg tablet 80 mg PO DAILY cholesterol 05/17/22 04/01/24 History fluoxetine 20 mg tablet 40 mg PO DAILY depression 05/17/22 04/02/24 09:30 History levothyroxine 50 mcg tablet 50 mcg PO DAILY thyroid 05/17/22 04/02/24 05:50 History pantoprazole 20 mg tablet,delayed 20 mg PO DAILY gerd 05/17/22 04/02/24 09:30 History release rasagiline 1 mg tablet 1 mg PO DAILY parkinsons med 05/17/22 04/02/24 09:30 History ibandronate 150 mg tablet 1 tab PO QMONTH osteoporosis 06/07/22 Unknown History tramadol 50 mg tablet 50 mg PO Q8H PRN pain 3 days #9 09/03/22 03/29/24 Rx tabs cholecalciferol (vitamin D3) 50 50 mcg PO DAILY replacement 03/28/24 04/02/24 09:30 History mcg (2,000 unit) capsule multivitamin (Daily Multi-Vitamin 1 tab PO DAILY supplement 03/28/24 04/02/24 09:30 History tablet) pimavanserin 34 mg capsule 34 mg PO QHS hallucinations 03/28/24 04/01/24 History (Nuplazid) acetaminophen 325 mg tablet 650 mg (2 x 325 mg) PO Q6H PRN PRN 04/02/24 04/02/24 09:30 Rx Pain Score 1-3 or fever. #0 tabs ascorbic acid (vitamin C) 500 mg 1,000 mg (2 x 500 mg) PO BIDCM 04/02/24 04/02/24 09:30 Rx tablet supplement #0 tabs ferrous sulfate 325 mg (65 mg 325 mg PO QODAY Supplement #30 tabs 04/02/24 Unknown Rx iron) tablet lactulose 20 gram/30 mL oral 10 g (15 mL) PO TID PRN 04/02/24 04/02/24 14:20 Rx solution constipation #0 mL sennosides 8.6 mg-docusate sodium 2 tab PO BID Constipation #0 tabs 04/02/24 04/02/24 09:30 Rx 50 mg tablet (Stool Softener-Stimulant Laxative) tizanidine 2 mg tablet 2 mg PO Q8H PRN PRN Muscle Spasm 04/02/24 Unknown Rx #0 tabs Allergy/AdvReac Type Severity Reaction Status Date / Time lorazepam (From Ativan) AdvReac Intermediate Other Verified 03/27/24 21:10 haloperidol (From Haldol) AdvReac Other Verified 03/27/24 21:10 Family History unable to obtain Surgical History S/P deep brain stimulator placement S/P deep brain stimulator placement Social History household members: spouse Smoking Status: Former smoker alcohol intake: never substance use type: does not use ROS Review of Systems ROS Unobtainable: due to mental condition Constitutional Constitutional: Reports systems reviewed and no addt'l complaints, except as documented; Denies chills or fever(s) ENT HEENT: Reports systems reviewed and no addt'l complaints, except as documented Cardiovascular Cardiovascular: Denies chest pain or dyspnea Respiratory/Chest Respiratory/Chest: Denies cough or dyspnea Gastrointestinal Gastrointestinal: Reports constipation and cramping; Denies nausea or vomiting Genitourinary Genitourinary: Reports low back pain; Denies burning urination, flank pain, hematuria, urinary hesitancy, urinary incontinence or urinary urgency Musculoskeletal Musculoskeletal: Reports back pain Integumentary Integumentary: Reports systems reviewed and no addt'l complaints, except as documented Neurologic Neurologic: Reports systems reviewed and no addt'l complaints, except as documented Psychiatric Psychiatric: Reports systems reviewed and no addt'l complaints, except as documented Endocrine Endocrinology: Reports systems reviewed and no addt'l complaints, except as documented Hematologic/Lymphatic Hematologic/Lymphatic: Reports systems reviewed and no addt'l complaints, except as documented Allergic/Immunologic Allergic/Immunologic: Reports systems reviewed and no addt'l complaints, except as documented Physical Exam Narrative She is sitting up in her chair. Const alert and no apparent distress HEENT normocephalic, head/scalp atraumatic, hearing grossly normal bilaterally, external nose normal and moist oral mucous membranes Eyes General Eye: normal appearance of both eyes Neck supple General: normal visual inspection and trachea midline Lymph Lymphatic: no lymphedema noted Chest inspection of chest normal Resp normal respiratory effort, normal air movement and no retractions Cardio regular rate GI soft to palpation, non-tender and non-distended no CVA tenderness Narrative: No Ho catheter Back/Spine no CVA tenderness Skin no rashes or lesions noted, no jaundice, no petechiae and no mottling Neuro CN's II-XII intact bilaterally Psych cooperative and affect normal Lab / Micro Data 04/10/24 05:21 04/10/24 05:[address] scan reviewed. There is a 6 mm midpole right renal stone with no obstruction. Does not appear to be within the cortex.
--- NOTE | 2024-04-11 12:35 | NURSING ---
Patient transported to Xray in by [employer].
--- NOTE | 2024-04-11 12:40 | RAD_ITS ---
INDICATION: Right kidney stone EXAMINATION/TECHNIQUE: X-RAY - XR Abdomen 1 View COMPARISON: CT examination of 04/10/2024 FINDINGS: BOWEL GAS PATTERN: Non-obstructive. No bowel or stomach distention. Residual contrast within sigmoid diverticula. FREE AIR: Not assessed on a single supine view. ORGANOMEGALY: Not seen. CALCIFICATIONS: There is obscuring bowel gas, however a faint calcification is present in the RIGHT mid abdomen measuring approximately 5 mm which may represent the previously documented calcification in the RIGHT kidney on CT. No other abnormal calcifications noted. LOWER CHEST: No acute pathology. BONES AND SOFT TISSUES: Evidence of prior kyphoplasty at L1, no acute bony changes noted. Postoperative changes involving the LEFT hip. RAD/Abdomen Single View IMPRESSION: 1. Non-obstructive bowel gas pattern. 2. 5 mm calcification projecting in the RIGHT mid abdomen, overlying the RIGHT kidney, may correspond to the recent CT findings of a RIGHT renal calcification. Electronically Signed: Jeancarlos Roldan MD at 20:30 EDT ,
--- NOTE | 2024-04-11 12:45 | NURSING ---
Patient returned from Xray, back in room, sitting in chair.
[2024-04-11] MEDS: Ferrous Sulfate 325 MG Tablet PO (12:52)
[2024-04-11] MEDS: Multivitamins,Therapeutic Tablet 1 TABLET PO (12:53)
[2024-04-11 15:27] VITALS: BP 136/90; PULSE 85; RESP 16; TEMP 36.4; O2SAT 90
[2024-04-11] MEDS: Ibuprofen 200 MG Tablet PO (20:57)
[2024-04-11] MEDS: Atorvastatin Calcium 80 MG Tablet PO (20:58)
[2024-04-11] MEDS: PIMAVANSERIN TARTRATE 34 MG PO (20:58)
[2024-04-11 21:00] VITALS: PULSE 90; RESP 16; O2SAT 94
[2024-04-12] MEDS: Ensure Plus High Protein 120 ML LIQUID PO ×4 (06:08→21:01)
[2024-04-12] MEDS: Acetaminophen 500 MG Tablet 1000 MG PO ×3 (06:09→21:00)
[2024-04-12] MEDS: Levothyroxine 50 MCG Tablet PO (06:09)
[2024-04-12 06:18] VITALS: PULSE 91; RESP 18; O2SAT 98
--- NOTE | 2024-04-12 08:45 | CASEMGMT ---
Addendum entered by Brian Carrington 04/12/24 10:07: SANDRA received confirmation from [facility] that the patient has been accepted for services with anticipates start of care for PT on Monday04/15/2024. Original Note: Social Work SANDRA met with patient's , Anders Prado who requested update on arranging discharge. SANDRA inquired about discussion with Physician regarding kidney stone. Anders informed SANDRA that no interventions are required at this time. Patient will follow up outpatient. SANDRA discussed home health care provider for home health care services. Anders informed SANDRA that he will need to go home to review information about home health care provider utilized in the past. Anders will contact SANDRA to inform of choice for home health care agency. SANDRA reviewed notes; previous home health care used in 2021 was [facility]. SW awaiting follow up from patient's to confirm. Phone referral will be submitted to [facility] upon confirmation. Home Health care will be arranged for PT/OT/ST/UTILIZATION REVIEW NURSE 0950- SANDRA received update from Anders Prado confirming that the patient had [facility]. Anders would like to take patient home sooner than later. SANDRA coordinated for discharge on 04/13/2024 SANDRA inquired about DME. Anders informed SANDRA that he has DME at home. Anders is looking into obtaining another bed alarm system for patient. Patient to discharge on 04/13/2024 to home with home health care services for PT/OT/ST/UTILIZATION REVIEW NURSE [address]
[2024-04-12 08:46] VITALS: BP 118/71; PULSE 83; RESP 16; TEMP 36.6; O2SAT 92
[2024-04-12] MEDS: Ascorbic Acid 500 MG Tablet 1000 MG PO ×2 (08:48→17:41)
[2024-04-12] MEDS: Pantoprazole Sodium 20 MG Tablet PO (08:49)
[2024-04-12] MEDS: Ibuprofen 200 MG Tablet PO ×3 (08:49→21:00)
[2024-04-12] MEDS: Potassium Chloride Oral Tablet 20 MEQ PO ×2 (08:49→17:40)
[2024-04-12] MEDS: Fluoxetine HCl 40 MG CAPSULE PO (08:50)
[2024-04-12] MEDS: Cholecalciferol (VIT D3) 25 MCG TABLET (1,000 UNITS) 50 MCG PO (08:50)
--- NOTE | 2024-04-12 09:13 | NURSING ---
pt with questions regarding DC on Monday, Explained the DC process and verbalized understanding. Reviewed the new order for mag citrate and melatonin, Pt refusing mag citrate d/t having couple incont bouts of stool yesterday and denies any abdominal pain. Educated on the importance of being sure pt is not constipated, but continues to refuse stool softeners and mag citrate at this time. will continue to monitor and pt agrees to take if she develops abdominal pain today.
[2024-04-12] MEDS: Multivitamins,Therapeutic Tablet 1 TABLET PO (11:53)
--- NOTE | 2024-04-12 12:58 | NURSING ---
Updated patient and (via phone) that a patient on the unit tested positive for covid.
--- NOTE | 2024-04-12 14:04 | DS.PCM_ITS ---
Providers Date of Admission: 04/02/24 Primary Care Physician: Dr. Crow Perez, Consultations 04/03/24 08:13 Consult: Pain Management Routine Consulting Provider: Clement Masterson Reason for Consult: L1 compression fracture. EMERGENT Consult: No MD Notified: Yes Date Notified: 04/03/24 Time Notified: 11:34 Method of Notification: Answering Service 04/10/24 15:31 Consult: Urology Routine Consulting Provider: Merlyn Lyles Reason for Consult: right side non obstructive kidney stone EMERGENT Consult: No MD Notified: Yes Date Notified: 04/10/24 Time Notified: 15:31 Method of Notification: Answering Service Reason For Visit: L1 WEDGE COMPRESSION FX & PNEUMONIA Diagnosis Discharge Diagnosis (1) Kidney stone: Status: Acute Code(s): N20.0 - Calculus of kidney Plan 78 year old female with below past medical history hospitalized for acute respiratory failure with hypoxia 2/2 pneumonia, complicated by L1 compression fracture, encephalopathy, admitted to TCU with debility, here for rehabilitation, strengthening, prior to discharge home with . * Debility - PT/OT. * Dysphagia - ST. * Pain - Tylenol 1000mg q8, Oxycodone 2.5mg q4 prn pain (6-10). * Bowel - senna/colace 2 tablets bid, Dulcolax 10mg pr daily, Lactulose 10gm tid prn. * Adult immunization - Administer pneumonia vaccine, covid vaccine, flu vaccine as appropriate. * DVT prophylaxis - Hold, in case of procedure. * Vitamin C deficiency - Vitamin C 1000mg bidcm. * Hyperlipidemia - Atorvastatin 80mg qhs. * Vitamin D deficiency - D3 50mcg daily. * Iron deficiency anemia - Ferrous sulfate 325mg q48. * Depression - Fluoxetine 40mg daily, stable chronic senior care use, GDR not recommended. * Osteoporosis - Ibandronate 150mg qmonth. * Hypothyroidism - Levothyroxine 50mcg daily. * Nutrition - MVI 1 tablet daily. * GERD - Pantoprazole 20mg daily. * Hallucinations 2/2 Parkinson Disease - Nuplazid 34mg qhs, stable chronic intermediate frame tender use, GDR not recommended. * Parkinson Disease - s/p deep brain stimulator, Azilect 1mg daily. * Muscle spasm - Tizanidine 2mg q8 prn. * L1 compression fracture - consult Dr. Gagnon to consider kyphoplasty. Medications at Discharge Home Medications atorvastatin 80 mg tablet 80 mg PO DAILY cholesterol 05/17/22 fluoxetine 20 mg tablet 40 mg PO DAILY depression 05/17/22 levothyroxine 50 mcg tablet 50 mcg PO DAILY thyroid 05/17/22 pantoprazole 20 mg tablet,delayed release 20 mg PO DAILY gerd 05/17/22 rasagiline 1 mg tablet 1 mg PO DAILY parkinsons med 05/17/22 ibandronate 150 mg tablet 1 tab PO QMONTH osteoporosis 06/07/22 cholecalciferol (vitamin D3) 50 mcg (2,000 unit) capsule 50 mcg PO DAILY replacement 03/28/24 multivitamin (Daily Multi-Vitamin tablet) 1 tab PO DAILY supplement 03/28/24 pimavanserin 34 mg capsule (Nuplazid) 34 mg PO QHS hallucinations 03/28/24 ascorbic acid (vitamin C) 500 mg tablet 1,000 mg (2 x 500 mg) PO BIDCM supplement #0 tabs 04/02/24 lactulose 20 gram/30 mL oral solution 10 g (15 mL) PO TID PRN constipation #0 mL 04/02/24 acetaminophen 500 mg tablet 1,000 mg (2 x 500 mg) PO Q8 #0 tabs 04/12/24 ferrous sulfate 325 mg (65 mg iron) tablet (FeroSul) 325 mg PO Q48H #30 tabs 04/12/24 potassium chloride 20 mEq tablet,extended release(part/cryst) 20 meq PO BIDCM 30 days #60 tabs 04/12/24 tizanidine 2 mg tablet 2 mg PO Q8H PRN PRN Muscle Spasm 30 days #90 tabs 04/12/24 Hospital Course Operations None Procedures - (Kyphoplasty.) Summary of Care Provided Minutes Spent on Discharge: 35 Hospital Course: 78 year old female with below past medical history hospitalized for acute respiratory failure with hypoxia 2/2 pneumonia, complicated by L1 compression fracture, encephalopathy, admitted to TCU with debility, here for rehabilitation, strengthening, prior to discharge home with . 04/04/2024 Dr. Gagnon performed L1 kyphoplasty with bone marrow aspirate biopsy, biopsy negative for malignancy. 04/10/2024 Resident c/o abdominal pain, CT showed non-obstructing right kidney stone, Dr. Lyles thought pain from constipation, not stone. Discharge home with 04/13/2024, [facility] PT/OT/ST/CENTER LEAD CONSULTANT. Physical Exam Const alert General Appearance: cooperative HEENT normocephalic Eyes PERRL and EOMs intact bilaterally Neck supple, no JVD and no carotid bruits Resp normal respiratory effort, normal air movement and clear to auscultation bilaterally Cardio regular rate and regular rhythm GI normal to inspection, nondistended, normoactive bowel sounds, non-tender and non-distended Extremity normal capillary refill General Extremity: Negative for edema Skin no rashes or lesions noted General Skin Exam: no breakdown Psych affect normal Appearance: appropriate Weight / BMI Weight Weight: 49.804 kg Body Mass Index (BMI) 21.4 ABG / Lab / Microbiology Data 04/10/24 05:21 04/10/24 05:21 Microbiology: Microbiology 04/12/24 10:40 Nasal Secretion SARS-CoV-2 Antigen (Rapid) - Final Radiography Diagnostic Testing: Radiology Impression KUB X-Ray 04/11/24 12:40 IMPRESSION: 1. Non-obstructive bowel gas pattern. 2. 5 mm calcification projecting in the RIGHT mid abdomen, overlying the RIGHT kidney, may correspond to the recent CT findings of a RIGHT renal calcification. Electronically Signed: Jeancarlos Roldan MD at 20:30 EDT , D/C Instructions Discharge Diet: No restrictions Discharge Activity: Return to Normal Activity, May Shower and Use Walker Weight Bearing Status: Weight bearing as tolerated Call your doctor if you observe: Fever of 101 or Higher, Inability to urinate, Inability to have a bowel movement, Shortness of breath, Dizziness, Fainting spells, Swelling in the ankles, Chest pain and Uncontrolled pain Additional Instructions: Discharge home with 04/13/2024, [facility] PT/OT/ST/CENTER LEAD CONSULTANT. Please Follow Up With: Olu Gagnon MD When: 4 weeks. Meaningful Use Info Meaningful Use Meaningful Use Diagnoses (Choose all that apply): None applicable Ischemic Stroke Statin Dosing Therapy Reference: STATIN DOSE THERAPY REFERENCE: * Patients > 75 years receive moderate or high dose statin therapy. * Patients 75 years or YOUNGER should receive HIGH intensity statin dose unless contraindicated. You will be required to document reason for non-treatment if statin daily dose does not meet guidelines. HIGH DOSE STATIN THERAPY DAILY Atorvastatin > than or = to 40 mg Rosuvastatin > than or = to 20 mg Amlodipine + Atorvastatin > than or = to 2.5/40 mg Ezetimibe + Simvastatin 10/80 mg Simvastatin 80mg Discharge Plan Admission Admit Date/Time: 04/02/24 18:04 Primary Reason for Your Visit: Debility. Attending Provider: Wilfrid Thompson Chi Primary Care Provider: Crow Perez Consulting Providers: Clement Masterson; Merlyn Lyles Instructions Additional Instructions / Restrictions: Discharge home with 04/13/2024, [facility] PT/OT/ST/CENTER LEAD CONSULTANT. Discharge Orders/Prescriptions Prescriptions: New acetaminophen 500 mg Tablet 1,000 mg PO Q8 Qty: 0 0RF ferrous sulfate [FeroSul] 325 mg (65 mg iron) Tablet 325 mg PO Q48H Qty: 30 0RF tizanidine 2 mg Tablet 2 mg PO Q8H PRN PRN (Reason: Muscle Spasm) 30 Days Qty: 90 0RF potassium chloride 20 mEq Tablet,Er Particles/Crystals 20 meq PO BIDCM 30 Days Qty: 60 0RF Continued atorvastatin 80 mg Tablet 80 mg PO DAILY pantoprazole 20 mg Tablet,Delayed Release (Dr/Ec) 20 mg PO DAILY levothyroxine 50 mcg Tablet 50 mcg PO DAILY fluoxetine 20 mg Tablet 40 mg PO DAILY rasagiline 1 mg Tablet 1 mg PO DAILY ibandronate 150 mg tablet 1 tab PO QMONTH Rx Instructions: 1st day of the month Nuplazid 34 mg capsule 34 mg PO QHS cholecalciferol (vitamin D3) 50 mcg (2,000 unit) capsule 50 mcg PO DAILY multivitamin [Daily Multi-Vitamin] Tablet 1 tab PO DAILY ascorbic acid (vitamin C) 500 mg Tablet 1,000 mg PO BIDCM Qty: 0 0RF lactulose 20 gram/30 mL Solution 10 g PO TID PRN (Reason: constipation) Qty: 0 0RF Discontinued tramadol 50 mg tablet 50 mg PO Q8H PRN (Reason: pain) 3 Days Qty: 9 0RF sennosides-docusate sodium [Stool Softener-Stimulant Laxat] 8.6-50 mg Tablet 2 tab PO BID Qty: 0 0RF acetaminophen 325 mg Tablet 650 mg PO Q6H PRN PRN (Reason: Pain Score 1-3 or fever.) Qty: 0 0RF tizanidine 2 mg Tablet 2 mg PO Q8H PRN PRN (Reason: Muscle Spasm) Qty: 0 0RF ferrous sulfate 325 mg (65 mg iron) tablet 325 mg PO QODAY Qty: 30 2RF Referrals / Follow Up: Crow Perez DO [Primary Care Provider] - Disposition Disposition (needs filled in before D/C Order can be placed): Home Health Service
--- NOTE | 2024-04-12 15:54 | CASEMGMT ---
Social Work SW met with patient at bedside to complete MDS. Patient BIM (06/20) and PhQ-9 (09/01) SW explored scored for PhQ-9 indicating moderate depression. Patient informed SW that she felt not hopeless, but down due to not getting what I want sometimes. Patient informed SW that she felt down for a few days. Patient informed SW that sometimes she feels confused about things going on around her. Patient has Parkinson's related dementia. Patient stated that she feels tired frequently due to doing a lot more during the day. Patient would like to return home. SW discussed discharge plans. Patient anticipates discharge home with and [facility]. Patient's to provide transportation to home. [address]
[2024-04-12] MEDS: MELATONIN 10 MG TABLET PO (21:00)
[2024-04-12] MEDS: Atorvastatin Calcium 80 MG Tablet PO (21:00)
[2024-04-12] MEDS: PIMAVANSERIN TARTRATE 34 MG PO (21:00)
[2024-04-13] MEDS: Levothyroxine 50 MCG Tablet PO (05:01)
[2024-04-13] MEDS: Acetaminophen 500 MG Tablet 1000 MG PO (05:01)
[2024-04-13] MEDS: Ensure Plus High Protein 120 ML LIQUID PO (05:01)
[2024-04-13 05:18] VITALS: PULSE 88; RESP 16; O2SAT 96
[2024-04-13] MEDS: Cholecalciferol (VIT D3) 25 MCG TABLET (1,000 UNITS) 50 MCG PO (08:38)
[2024-04-13] MEDS: Potassium Chloride Oral Tablet 20 MEQ PO (08:38)
[2024-04-13] MEDS: Pantoprazole Sodium 20 MG Tablet PO (08:39)
[2024-04-13] MEDS: Fluoxetine HCl 40 MG CAPSULE PO (08:39)
[2024-04-13] MEDS: Ascorbic Acid 500 MG Tablet 1000 MG PO (08:39)
[2024-04-13] MEDS: Ibuprofen 200 MG Tablet PO (08:40)
[2024-04-13 10:38] VITALS: BP 104/68; PULSE 82; RESP 16; TEMP 36.5; O2SAT 93
--- NOTE | 2024-04-15 10:00 | MDS.RN ---
Information for the MDS was obtained from review of the clinical record, interview of resident, staff, and direct observation of resident?s care.
== END 2024-04-13 10:35 | disposition home health service (06) | DRG 194 ==
PROVIDERS: Admitting Provider Family Medicine Geriatric Medicine; PCP Family Medicine; Visit Provider Family Medicine Geriatric Medicine
DX: J18.9 Pneumonia, unspecified organism (principal); G93.40 Encephalopathy, unspecified; F02.80 Dementia in other diseases classified elsewhere, unspecified severity, without behavioral disturbance, psychotic disturbance, mood disturbance, and anxiety; G20.A1 Parkinson's disease without dyskinesia, without mention of fluctuations; F32.A Depression, unspecified; D50.9 Iron deficiency anemia, unspecified; E03.9 Hypothyroidism, unspecified; E78.00 Pure hypercholesterolemia, unspecified; E55.9 Vitamin D deficiency, unspecified; K21.9 Gastro-esophageal reflux disease without esophagitis; M80.08XD Age-related osteoporosis with current pathological fracture, vertebra(e), subsequent encounter for fracture with routine healing; Z87.891 Personal history of nicotine dependence; Z79.899 Other long term (current) drug therapy; Z79.890 Hormone replacement therapy; N20.0 Calculus of kidney; G47.00 Insomnia, unspecified
CPT/HCPCS: 36415; 74018; 74230; 80048; 80061; 82306; 83540; 83550; 85025; 87811; 92507; 92523; 92526; 92610; 92611; 97110; 97116; 97162; 97166; 97530; 97535; 97802; A4216

== ENCOUNTER 2024-04-04 12:16 | Day surgery (SDC) | payer MEDICARE, SELFPAY ==
[2024-04-04] VITALS (8 sets, daily range): BP systolic 99–121; BP diastolic 65–84; PULSE 82–90; RESP 16; TEMP 36.3–37.4; O2SAT 89–96; BMI 22.0
[2024-04-04] MEDS: Lactated Ringers 1,000 ML 15 ML IV (12:49)
--- NOTE | 2024-04-04 13:30 | BONBX_PTH ---
PATIENT: EBONIE LIM LOC: [facility] [place] U#:[id number] AGE/SX: 78/F ROOM: RE04/04/[address]: Dr. Olu Gagnon MD : 1945 BED: DIS: 04/04/2024 SPEC #: [id number] RECD: 04/04/24 16:49 STATUS: JOVANNY REKira #: [id number] MICHELLE: 04/04/24 13:[address]: Olu Gagnon DEPT: SURGICAL PATHOLOGY RECD BY: Janine Gregg ENTERED: 04/05/24 09:43 SP TYPE: Bone OTHR DR: Dr. Crow Perez, DO Tissues: Vertebra, NOS Procedures: Decalcification bone/plaque Surgery Specimen Level V HEADER OPERATION: Kyphoplasty, L1 PRE-OP DIAGNOSIS: L1 compression fracture TISSUE SUBMITTED: L1 vertebral body biopsy MICROSCOPIC DIAGNOSIS L1 vertebral body, bone biopsy: Reparative and reactive change. No evidence of malignancy. AM/mr 04/08/2024 MICROSCOPIC DESCRIPTION Slides are reviewed. GROSS DESCRIPTION Received in fixative is one container labeled with the patient's name and designated L1 vertebral body biopsy. The specimen consists of multiple irregular fragments of reddish-holliday soft and gritty tissue measuring in aggregate 2.0 x 2.0 x 0.2cm. The specimen is totally submitted in one cassette after decalcification. / 04/05/2024 TC:5 CPT:45323,57063
--- NOTE | 2024-04-04 14:14 | RAD_ITS ---
HISTORY: PAIN COMPARISON: CT lumbar spine March 28, 2024 TECHNIQUE: A total of 9 fluoroscopic images were saved. FINDINGS: Images demonstrate progressive images from kyphoplasty. Total fluoroscopy time: 148 seconds Cumulative air kerma: 32.88 mGy RAD/Spine 1 View Any Level IMPRESSION: Fluoroscopic assistance for kyphoplasty. Please see operative report for additional information. Electronically Signed: Philip Johnson MD at 17:07 EDT ,
[2024-04-04] MEDS: Lidocaine 0.5% (50 ml) 50 ML Vial (14:56)
--- NOTE | 2024-04-04 16:07 | SUR.PHASEII ---
LOOP ADDED TO LEFT HAND IV, DRESSING CHANGED. PATIENT TOLERATED.
--- NOTE | 2024-04-04 17:22 | PCM.OPRPT ---
Problems Associated Problem List Diagnoses (1) Compression fracture of L1 lumbar vertebra: Report of Operation Date of Procedure: 04/04/24 Pre-Operative Diagnosis: L1 compression fracture Post-Operative Diagnosis: L1 compression fracture Surgery/Procedure Performed:: L1 kyphoplasty with bone marrow aspirate biopsy Surgeon: Olu Gagnon Specimen's removed: Bone marrow aspirate sent to pathology Drains: none Estimated Blood Loss (mL): <5ml Description of Procedure: INFORMED CONSENT: The procedure, risks, benefits and options were discussed with the patient (including discussion of cement leakage, neurological injury and as potential though uncommon possible side effects). There are no contraindications to the procedure. The patient expressed understanding and agreed to proceed.? PROCEDURE TECHNIQUE: The patient was admitted to the preoperative area and time out performed. Vital signs were checked and the patient was moved to the procedure area and placed in the prone position. Standard monitors were applied. Sterile prep and drape was performed in a regular manner. Under fluoroscopy guidance utilizing AP lateral and oblique view as required, the L5 level was identified. Following, local anesthesia with 0.25% bupivacaine (20cc)? was administered, a 10 gauge needle was advanced utilizing the left transpedicular approach into the Lumbar vertebral body. A drill was then passed through the trochar and used to provide an avenue for the balloon to be placed into the vertebral body.? The kyphoplasty balloon was introduced through the 10 gauge needle and inflation of the balloon was up to 100 PSI at the level.? The cavity was created and the balloon was removed intact. Under fluoroscopic guidance utilizing AP lateral and oblique views as required, the L5 level was identified.?The cement mixture was prepared and injected through the 10 gauge needle and the cavity was filled using bone cement without evidence of significant extravasation or vascular uptake. Given the midline position of the cavity bilateral spread was noted. Due to adequate spread, only unipedicular approach was performed. The stylette was then replaced prior to removal of the needle intact. ? The patient tolerated the procedure well, there were no clinical complications and the neurological exam was normal. The patient was cleansed and steristrips were placed. Patient tolerated well.? ? Complications None. Patient moving lower extremities in Pacu.
== END 2024-04-04 16:03 | disposition home or self-care (01) ==
LOC: SDC 12:20 → AC 12:20
PROVIDERS: PCP Family Medicine; Referring Provider Anesthesiology; Visit Provider Anesthesiology
PROC: (CPT 22514; principal; 2024-04-04 13:15)
DX: S32.019A Unspecified fracture of first lumbar vertebra, initial encounter for closed fracture (principal); G20.C Parkinsonism, unspecified; E78.00 Pure hypercholesterolemia, unspecified; E03.9 Hypothyroidism, unspecified; Z87.891 Personal history of nicotine dependence; Z79.899 Other long term (current) drug therapy; X58.XXXA Exposure to other specified factors, initial encounter
CPT/HCPCS: 22514; 38222; 01992; J7120; 72020; 76000; 88307; 88311

== ENCOUNTER → 2024-04-10 | Outpatient (CLI) | payer MEDICARE, SELFPAY ==
--- NOTE | 2024-04-10 12:02 | CT_ITS ---
STUDY: CT ABDOMEN AND PELVIS WITH CONTRAST REASON FOR EXAM: Female, 78 years old. Unspecified abdominal pain RADIATION DOSAGE (If Supplied By Facility): CTDIvol = ( 9.00 ) mGy, DLP = ( 368.49 ) mGycm TECHNIQUE: Transaxial images were obtained from the dome of the diaphragm to the symphysis pubis with oral contrast. Oral and amp; IV Gastrografin and amp; 70mL Isovue-300 was administered. Sagittal and coronal images were reconstructed. Individualized dose optimization techniques were used for this CT. COMPARISON: Comparison is made with prior study dated May 17, 2022. FINDINGS: Mild increased linear markings at the lung bases suggestive of bibasilar atelectasis and/or scarring. Coronary artery calcification. Normal liver. Normal gallbladder and extrahepatic biliary system. Normal spleen. Normal pancreas. Normal bilateral adrenal glands. There is a 6 mm nonobstructive calculus in the mid posterior calyx of the right kidney. Normal left kidney. There is a small hiatal hernia. Normal small intestine. There are multiple colonic diverticula consistent with diverticulosis. The appendix is visualized and appears normal. There is scattered atherosclerotic calcification of the abdominal aorta, without a demonstrated aneurysm. Normal inferior vena cava. Normal retroperitoneum. Normal urinary bladder. There is absence of the uterus consistent with a prior hysterectomy. Normal abdominal wall. 60% loss of height of the L1 vertebrae with the prior vertebroplasty. Loss of height of the superior endplate with sclerosis of the L5 vertebrae. Prior ORIF of the left intertrochanter fracture. CT/Abdomen/Pelvis WITH Contrast IMPRESSION: Mild scarring at the lung bases. Sigmoid diverticulosis. Stable 6 mm nonobstructive calculi within the mid posterior calyx of the right kidney. Prior hysterectomy. Electronically Signed: Lorne Castellon MD at 15:08 EDT ,
== END | disposition home or self-care (01) ==
PROVIDERS: PCP Family Medicine; Referring Provider Family Medicine Geriatric Medicine; Visit Provider Family Medicine Geriatric Medicine
DX: R10.9 Unspecified abdominal pain (principal)
CPT/HCPCS: 74177; Q9967

== ENCOUNTER → 2024-09-24 | Outpatient (CLI) | payer MEDICARE, SELFPAY ==
--- NOTE | 2024-09-24 15:19 | BI_ITS ---
MAMMOGRAPHY - BILATERAL SCREENING REASON FOR EXAM: Female, 79 years old. Routine annual screening examination. PERTINENT HISTORY: Mother with breast cancer. TECHNIQUE: Digital bilateral breast zaid (3D mammographic acquisition) in the CC and MLO projections. 2-D mediolateral oblique (MLO) and craniocaudad (CC) views of both breasts were obtained. CAD: Full Field Digital Mammography with Computer Added Detection was performed. COMPARISON: Comparison is made with prior outside examination September 05, 2023. FINDINGS: Breast Composition: The breasts are almost entirely fatty. There are no dominant masses or suspicious calcifications. No other significant abnormalities are identified. There has been no significant change since the prior study. BI/SCRN MAMM (CAD)W/ZAID BILAT IMPRESSION: Stable bilateral screening mammogram. Yearly follow-up mammogram recommended. (A) ASSESSMENT CATEGORY: BIRADS Category 1: Negative. A letter regarding these results will be sent to the patient by the facility within 30 days. Approximately 10% of breast cancers are not detected by mammography. A normal mammogram should not delay biopsy of a clinically suspicious abnormality. [id number] Electronically Signed: Lorne Castellon MD at 11:13 EST ,
== END | disposition home or self-care (01) ==
LOC: OPBI 15:18
PROVIDERS: PCP Family Medicine; Referring Provider Family Medicine; Visit Provider Family Medicine
DX: Z12.31 Encounter for screening mammogram for malignant neoplasm of breast (principal)
CPT/HCPCS: 77063; 77067

== ENCOUNTER 2025-10-26 14:33 | Emergency (ER) | payer MEDICARE, SELFPAY ==
[2025-10-26] VITALS (23 sets, daily range): BP systolic 121–155; BP diastolic 68–98; PULSE 67–89; RESP 11–18; TEMP 36.1–36.4; O2SAT 93–96; BMI 24.3
--- NOTE | 2025-10-26 15:03 | CT_ITS ---
PROCEDURE: BRAIN/HEAD WITHOUT CONTRAST 10/26/2025 REASON FOR EXAM: AMS TECHNIQUE: Procedure Code: CTBR Modality: CT Procedure: BRAIN/HEAD WITHOUT CONTRAST Coronal and Sagittal reconstruction series were provided. One or more dose reduction techniques were used (e.g., Automated exposure control, adjustment of the mA and/or kV according to patient size, use of iterative reconstruction technique. RADIATION DOSE SUMMARY: Not listed. COMPARISON: 03/27/2024. FINDINGS: Bilateral frontal approach stimulator leads are present with tips terminating in the thalami. Moderate global parenchymal atrophy. Periventricular white matter hypodensity likely representing chronic microvascular ischemia. The paranasal sinuses and mastoid air cells are clear. The calvarial vault and skull base are intact. CT/Brain/Head without Contrast IMPRESSION: No acute intracranial abnormality. Reading [facility]
--- NOTE | 2025-10-26 15:04 | CT_ITS ---
PROCEDURE: ABDOMEN/PELVIS W IV CONT ONLY 10/26/2025 REASON FOR EXAM: CONSTIPATION 7 DAYS, ABD PAIN? LAST WEEK TECHNIQUE: Procedure Code: [id number] Modality: CT Procedure: ABDOMEN/PELVIS W IV CONT ONLY Coronal and Sagittal reconstruction series were provided. CONTRAST: Isovue 370 VOLUME: 75 mL One or more dose reduction techniques were used (e.g., Automated exposure control, adjustment of the mA and/or kV according to patient size, use of iterative reconstruction technique. RADIATION DOSE SUMMARY: CTDlvol: 44+ 6 mGy DLP: 1123 mGycm COMPARISON: 04/10/2024. FINDINGS: Mild dependent changes of the bilateral lungs. The peripheral soft tissues are unremarkable. Left femoral neck fixation screws. Degenerative changes of the spine. Stable moderate superior endplate compression deformity of L5. Stable compression deformity of L1 with vertebroplasty material. Moderate atherosclerosis. Normal caliber abdominal aorta. Left kidney hepatic lobe subcentimeter hypodense lesion that is too small to characterize. The gallbladder is unremarkable. The pancreas, spleen, and adrenals are unremarkable. Symmetric enhancement of the bilateral kidneys in the corticomedullary phase. No hydroureteronephrosis. The urinary bladder is unremarkable. Normal caliber large and small bowel without surrounding inflammatory changes. Low-density wall thickening of the gastric pylorus suspicious for gastritis. CT/Abdomen/Pelvis W IV Cont ONLY IMPRESSION: Probable gastritis. Chronic and ancillary findings as above. Reading Location: [facility]
--- NOTE | 2025-10-26 15:05 | EKG12_ITS ---
Test Reason : ALTERED LOC Blood Pressure : */* mmHG Vent. Rate : 79 BPM Atrial Rate : 79 BPM P-R Int : 148 ms QRS Dur : 68 ms QT Int : 454 ms P-R-T Axes : 80 5 39 degrees QTcB Int : 520 ms Normal sinus rhythm Nonspecific T wave abnormality Abnormal ECG Confirmed by Jacob Person ([id number]), make up editor MAYELIN CARRASCO ([id number]) on 10/28/2025 11:29:42 AM Also confirmed by Jacob Person ([id number]), make up editor MAYELIN CARRASCO ([id number]) on 10/29/2025 10:54:46 AM Referred By: Confirmed By: Jacob Person
[2025-10-26] MEDS: 0.9% Normal Saline (1000mL) 1,000 ML 1000 ML IV (15:13)
--- OUTSIDE RECORDS SUMMARY | 2025-10-26 15:15 | XMS RPT_ITS | CCD ---
Author Organization [facility] Care Team Providers Care Record Changer Name Role Phone BENJAMIN LYNN, DR DEN FUNK Primary Care Phys ician Den Alexander MD Primary Care Provide r Evans LYNN, David Unavailable Wilbert Jenkins MD Unavailable DEN ALEXANDER Primary Care Provider Dr. Song Kim Emergency Provider Dr. Lindsay Agustin Admit Provider Dr. Lindsay Agustin Attending Provider Dr. Lindsay Agustin Other Provider Dr. Jose Rafael Mckinley Attending Provider Dr. Jose Rafael Mckinley Other Provider Den Alexander MD Primary Care Provide r Evans LYNN, David Unavailable Wilbert Jenkins MD Unavailable Den Alexander MD Primary Care Provide r Bryn LARKIN.Jeannie HOANG Unavailable [phone] Den Alexander MD Primary Care Provide r Evans LYNN, David Unavailable Wilbert Jenkins MD Unavailable Bryn LARKIN.Jeannie HOANG Unavailable Manny GENERAL MANAGER [employer] ADMINIST[employer]ATOR, Zina Unavailable Wilbert Jenkins MD Unavailable Bryn GENERAL MANAGER [employer] ADMINISTRATOR, Jeannie Laguerre Unavailable Manny GENERAL MANAGER [employer] ADMINISTRATOR, Zina Unavailable Olu Perez DO Primary Care Provider OLU PEREZ Referring Unavailable OLU PEREZ Primary Care Unavailable JENRETTE, DEN SPRAGG Referring Unavail able JENRETTE, DEN SPRAGG Primary Care Unavail able JENRETTE, DEN SPRAGG Referring Unavail able JENRETTE, DEN SPRAGG Primary Care Unavail able Olu Perez DO Primary Care Provider Olu Perez DO Primary Care Provider Norma Garza PA-C Unavailable Olu Perez DO Primary Care Provider ALEXANDREABANNERBRITTNEY GENERAL MANAGER [facility], MARILEE Attending Unava ilable OLU PEREZ DO Primary Care Unavailable OLU PEREZ DO Primary Care Unavailable WEBANNERBRITTNEY GENERAL MANAGER [facility], MARILEE Attending Unava ilable OLU PEREZ DO Primary Care Unavailable WEBANNERBRITTNEY GENERAL MANAGER [facility], MARILEE Attending Unava ilable OLU PEREZ DO Primary Care Unavailable OLU PEREZ DO Attending Unavailable JENNIFER GENERAL MANAGER [facility], MARILEE Attending Unava ilable OLU PEREZ DO Primary Care Unavailable WEBANNERBRITTNEY GENERAL MANAGER [facility], MARILEE Attending Unava ilable OLU PEREZ DO Primary Care Unavailable TRACEY PEREZ MD Attending Unavailable OLU PEREZ DO Primary Care Unavailable OLU PEREZ DO Primary Care Unavailable OLU PEREZ DO Attending Unavailable [employer] Unavailable Unavailab le OLU PEREZ DO Primary Care Physician OLU PEREZ DO Primary Care Unavailable OLU PEREZ DO Attending Unavailable OLU PEREZ DO Primary Care Unavailable JENNIFER GENERAL MANAGER [facility], MARILEE Attending Unava ilable JEANNIE CARTER Attending Unavailable OLU PEREZ Primary Care Unavailable JEANNIE CARTER Attending Unavailable OLU PEREZ Primary Care Unavailable Merlyn Valentin Attending Unavailable Olu Perez Referring Unavailable Olu Perez Primary Care Unavailable Olu Perez Attending Unavailable Olu Perez Referring Unavailable Chris, Olu Primary Care Unavailable Olu Perez Attending Unavailable Chris Olu Referring Unavailable Chris Olu Primary Care Unavailable CHRIS DO, OLU J Primary Care Unavailable JENNIFER GENERAL MANAGER [employer] ADMINISTRATOR, MARILEE Attending Unava ilable OLU PEREZ DO Attending Unavailable OLU PEREZ DO J Primary Care Unavailable WEBANNERBRITTNEY GENERAL MANAGER [employer] ADMINISTRATOR, MARILEE Attending Unava ilable CHRIS DO, OLU Lozano Primary Care Unavailable CHRIS DO, OLU Lozano Primary Care Unavailable WEBANNERBRITTNEY GENERAL MANAGER [employer] ADMINISTRATOR, MARILEE Attending Unava ilable CHRIS CHENG, OLU Lozano Primary Care Unavailable CHRIS CHENG, OLU Lozano Attending Unavailable Allergies Allergy Classification Reported Allergen(s) Allergy Type Date of Onset Reaction(s) Facility (20 sources) Amantadine; Translations: [AMANTADINE] Drug Allergy 0 Other: See Comments [facility] (20 sources) Carbidopa / Levodopa; Translations: [CARBIDOPA-LEVO DOPA] Drug Allergy 0 Unknown [facility] (20 sources) rOPINIRole; Translations: [ROPINIROLE] Drug Allergy 0 Other: See Comments [facility] (20 sources) Trihexyphenidyl ; Translations: [ARTANE] Drug Allergy 0 Unknown [facility] (20 sources) Haloperidol; Translations: [HALOPERIDOL] Drug Allergy 2 Mental Status Change, Hallucinations (finding) [facility] (20 sources) LORazepam; Translations: [LORAZEPAM] Drug Allergy 2 Mental Status Change, Hallucinations (finding) [facility] (20 sources) Metoclopramide; Translations: [METOCLOPRAMIDE ] Drug Allergy 2 Unknown [facility] (1 source) Haloperidol Drug Allergy 5 [facility] (1 source) LORazepam Drug Allergy 5 [facility] Medications Current Medications Medication Drug Class(es) Dates Sig (Normalized) Sig (Original) aspirin 81 mg chewable tablet (1 source) Platelet Aggregation Inhibitor, Nonsteroidal Anti-inflammatory Drug Start: 02-09-2022 aspirin 81 mg oral tablet, chewable Dose : 81 mg = 1 tab(s), Oral, qDayM, 0 Refill(s) Start Date: 02/09/22 Status: Ordered atorvastatin 80 mg oral tablet (20 sources) HMG-CoA Reductase Inhibitor Start: 08-20-2018 take 1 tablet by mouth once daily atorvastatin 80 mg oral tablet 1 tab(s), Oral, qDay, # 90 tab(s), 1 Refill(s), Pharmacy: [facility]/pharmacy #[id number], 152, cm, 02/11/25 11:11:00 EDT, Height, kg, 02/11/25 11:11:00 EDT, Dosing Weight Start Date: 02/28/25 Status: Ordered Medication Dispense Status: Completed Quantity: 90.0 Unit: tab(s) Total Allowed Fills: 2 Fills Dispensed: 0 Comment on above: Take 80 mg by mouth once daily. Calcium (4 sources) Phosphate Binder, Calcium Start: 06-07-2022 take 600 mg by mouth once daily calcium Active 600 MG SL/PO DAILY June 06, 2022 11:00pm Start: 06-07-2022 take 600 mg by mouth once tom y calcium Active 600 MG SL/PO DAILY June 07, 2022 12:00am calcium carbonate 1625 mg oral tablet (20 sources) take 1 tablet by mouth three times daily at mealtime Calcium Carbonate 650 mg calcium (1,625 mg) tablet Take 650 mg by mouth three times daily with meals. Active Comment on above: Take 650 mg by mouth three times daily with meals. calcium citrate 1190 mg / cholecalciferol 0.005 mg oral tablet (1 source) Vitamin D Start: 3 take 1 tablet by mouth once daily calcium (as carbonate and lactate)-vitamin D 200 mg-6.25 mcg oral tablet Dose = 1 tab(s), Chewed, qDay, # 100 tab(s), 0 Refill(s) Start Date: 07/24/23 Status: Ordered Medication Dispense Status: Completed Quantity: 100.0 Unit: tab(s) Total Allowed Fills: 1 Fills Dispensed: 0 citalopram 10 mg oral tablet (1 source) Serotonin Reuptake Inhibitor Start: 5 citalopram 10 mg oral tablet Dose : 10 mg = 1 tab(s), Oral, qDay, # 90 tab(s), 0 Refill(s), Pharmacy: [facility]/pharmacy #[id number], 172, cm, 05/21/25 9:04:00 EDT, Height, kg, 05/21/25 9:04:00 EDT, Dosing Weight Start Date: 06/05/25 Status: Ordered Medication Dispense Status: Completed Quantity: 90.0 Unit: tab(s) Total Allowed Fills: 1 Fills Dispensed: 0 ferrous sulfate 325 mg oral tablet (20 sources) Start: IRON (ferrous sulfate 325 mg) 65 mg oral tablet Dose : 325 mg = 1 tab(s), Oral, BIDM, Take with food., # 60 tab(s), 3 Refill(s) Start Date: 04/19/24 Status: Ordered Medication Dispense Status: Completed Quantity: 60.0 Unit: tab(s) Total Allowed Fills: 1 Fills Dispensed: 0 take 1 tablet by mouth every wee k ferrous sulfate (IRON ORAL) Take 65 mg by mouth. Pt takes 1 tab 3x a week. Active FLUoxetine 20 mg oral tablet (20 sources) Serotonin Reuptake Inhibitor Start: 05-17-2022 take 40 mg by mouth once daily Fluoxetine Active 40 MG PO DAILY May 16, 2022 11:00pm Start: 05-17-2022 take 20 mg by mouth once daily Fluoxetine Active 20 MG PO DAILY May 17, 2022 12:00am Start: 01-04-2021 take 1 capsule by mo ut once daily FLUoxetine (PROZAC) 40 mg capsule Take 40 mg by mouth once daily. 01/04/2021 Active Start: 01-04-2021 take 1 capsule by mo uth once daily FLUoxetine (PROZAC) 20 mg capsule Take 20 mg by mouth once daily. 0 01/04/2021 Active Comment on above: Take 20 mg by mouth once daily. Take 40 mg by mouth once daily. ibandronic acid 150 mg oral tablet (20 sources) Bisphosphonate Start: 08-20-20 18 take 1 tablet by mouth every month ibandronate 150 mg oral tablet See Instructions, TAKE 1 TABLET BY MOUTH EVERY MONTH, # 3 tab(s), 2 Refill(s), Pharmacy: [facility] STORE [id number], 152, cm, 02/11/25 11:11:00 EDT, Height, kg, 02/11/25 11:11:00 EDT, Dosing Weight Start Date: 03/07/25 Status: Ordered Medication Dispense Status: Completed Quantity: 3.0 Unit: tab(s) Total Allowed Fills: 1 Fills Dispensed: 0 Comment on above: Take 150 mg by mouth once every month. levothyroxine sodium 0.05 mg oral tablet (20 sources) l-Thyroxine Start: 06-10-20 take 1 tablet by mouth once daily levothyroxine 50 mcg (0.05 mg) oral tablet 1 tab(s), Oral, qDay, # 90 tab(s), 0 Refill(s), Pharmacy: [facility] STORE [id number], 172, cm, 05/21/25 9:04:00 EDT, Height, kg, 05/21/25 9:04:00 EDT, Dosing Weight Start Date: 06/10/25 Status: Ordered Medication Dispense Status: Completed Quantity: 90.0 Unit: tab(s) Total Allowed Fills: 1 Fills Dispensed: 0 Start: 08-20-2018 levothyroxine 50 mcg (0.05 mg) oral tablet Dose : 50 mcg = 1 tab(s), Oral, qDay, 0 Refill(s) Start Date: 08/20/18 Status: Ordered Start: 01-08-2018 take 1 tablet by renato th once daily levothyroxine (SYNTHROID) 50 mcg tablet Take 1 tablet by mouth once daily. 1 01/08/2018 Active Comment on above: Take 1 tablet by renato th once daily. 24 hr mirabegron 25 mg extended release oral tablet (1 source) beta3-Adrenergic Agonist Start: 05-27-2025 Myrbetriq 25 mg oral tablet, extended release Dose : 25 mg = 1 tab(s), Oral, qDay, # 90 tab(s), 1 Refill(s), Pharmacy: [facility]/pharmacy #[id number], 172, cm, 05/21/25 9:04:00 EDT, Height, kg, 05/21/25 9:04:00 EDT, Dosing Weight Start Date: 05/27/25 Status: Ordered Medication Dispense Status: Completed Quantity: 90.0 Unit: tab(s) Total Allowed Fills: 2 Fills Dispensed: 0 Multivitamin preparation (1 source) Start: 09-25-2023 take 1 tablet by mouth once daily Multivitamin Dose = 1 tab(s), Oral, Daily, 0 Refill(s) Start Date: 09/25/23 Status: Ordered Medication Dispense Status: Completed Total Allowed Fills: 1 Fills Dispensed: 0 multivitamin with minerals (MULTIPLE VITAMINS 55 PLUS ORAL) (20 sources) Start: 11-06-2016 multivitamin with minerals (MULTIPLE VITAMINS 55 PLUS ORAL) once daily. 11/06/2016 Active Start: 11-06-2016 multivitamin w ith minerals (MULTIPLE VITAMINS 55 PLUS ORAL) once daily. 0 11/06/2016 Active Comment on above: once daily. pantoprazole 20 mg delayed release oral tablet (20 sources) Proton Pump Inhibitor Start: take 1 tablet by mouth once daily pantoprazole 20 mg oral enteric coated tablet 1 tab(s), Oral, qDay, # 90 tab(s), 0 Refill(s), Pharmacy: [facility] STORE [id number], 172, cm, 05/21/25 9:04:00 EDT, Height, kg, 05/21/25 9:04:00 EDT, Dosing Weight Start Date: 06/30/25 Status: Ordered Medication Dispense Status: Completed Quantity: 90.0 Unit: tab(s) Total Allowed Fills: 1 Fills Dispensed: 0 Start: 08-20-2018 take 20 mg by mouth once daily Pantoprazole Active 20 MG PO DAILY May 16, 2022 11:00pm Comment on above: Take 20 mg by mouth once daily. pimavanserin 34 mg oral capsule (20 sources) Atypical Antipsychotic Start: 11-14-2022 End: 11-16-2025 Nuplazid 34 mg oral capsule Dose : 34 mg = 1 cap(s), Oral, qDay, # 90 cap(s), 0 Refill(s) Start Date: 07/24/23 Status: Ordered Medication Dispense Status: Completed Quantity: 90.0 Unit: cap(s) Total Allowed Fills: 1 Fills Dispensed: 0 Start: 08-16-2022 End: 11-26-2022 take 1 tablet by mouth once daily Pimavanserin (Nuplazid) 10 mg tablet Active 10 MG PO DAILY September 02, 2022 11:00pm Comment on above: Take 1 tablet by renato th daily at bedtime. Take 1 capsule by mo uth daily at bedtime. POLYETHYLENE GLYCOL 3350 (2 sources) Osmotic Laxative Start: 02-09-2022 take 1 dose by mouth once daily polyethylene glycol 3350 Oral, qDay, 0 Refill(s) Start Date: 02/09/22 Status: Ordered Medication Dispense Status: Completed Total Allowed Fills: 1 Fills Dispensed: 0 Start: 02-09-2022 polyethylene g lycol 3350 Oral, qDay, 0 Refill(s) Start Date: 02/09/22 Status: Ordered QUEtiapine 25 mg oral tablet (5 sources) Atypical Antipsychotic Start: 07-01-2025 QUEtiap ine 25 mg oral tablet Dose : 25 mg = 1 tab(s), Oral, qHS, 0 Refill(s) Start Date: 07/01/25 Status: Ordered Medication Dispense Status: Completed Total Allowed Fills: 1 Fills Dispensed: 0 Start: 05-27-2025 End: 06-26-2025 take 1 tablet by mouth once daily at bedtime QUEtiapine (SEROQUEL) 25 mg tablet Indications: Parkinson's disease, unspecified whether dyskinesia present, unspecified whether manifestations fluctuate (HCC) Take 1 tablet by mouth daily at bedtime. 30 tablet 3 05/27/2025 Active rasagiline 1 mg oral tablet (20 sources) Monoamine Oxidase Inhibitor Start: 08-20-2018 End: 08-02-2024 rasagiline 1 mg oral tablet (NF) Dose : 1 mg = 1 tab(s), Oral, qDay, 0 Refill(s) Start Date: 08/20/18 Status: Ordered Medication Dispense Status: Completed Total Allowed Fills: 1 Fills Dispensed: 0 Comment on above: Take 1 tablet by renato once daily. TAKE 1 TABLET BY RENATO EVERY DAY traMADol hydrochloride 50 mg oral tablet (2 sources) Opioid Agonist Start: 09-03-2022 take 50 mg by mouth every eight hours Tramadol Active 50 MG PO Q8H 9 September 02, 2022 11:00pm traZODone hydrochloride 50 mg oral tablet (5 sources) Serotonin Reuptake Inhibitor Start: 09-19-2024 End: 09-19-2025 take 1 tablet by mouth once daily at bedtime traZODone 50 mg oral tablet TAKE 1 TABLET BY MOUTH EVERYDAY AT BEDTIME Start Date: 11/12/24 Status: Ordered Medication Dispense Status: Completed Total Allowed Fills: 1 Fills Dispensed: 0 Start: 08-27-2024 End: 09-26-2024 take 0.5 tablet by mouth once daily at bedtime traZODone (DESYREL) 50 mg tablet Indications: 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) Take 0.5 tablets by mouth daily at bedtime. 15 tablet 08/27/2024 09/19/2024 Discontinued vitamin A/vitamin D3 (NATURA L VITAMIN D ORAL) (20 sources) take 2000 [IU] by mo uth once vitamin A/vitamin D3 (NATURAL VITAMIN D ORAL) Take 2,000 Units by mouth. Active take 2000 [IU] by mouth once vit chew A/vitamin D3 (NATURAL VITAMIN D ORAL) Take 2,000 Units by mouth. 0 Active Comment on above: Take 2,000 Units by mouth. Completed/Discontinued Medications Medication Drug Class(es) Dates Sig (Normalized) Sig (Original) cephalexin 500 mg oral capsule (16 sources) Cephalosporin Antibacterial Start: 09-19-2023 End: 08-29-2024 take 1 capsule by mouth four times daily cephALEXin (KEFLEX) 500 mg capsule Take 1 capsule by mouth four times daily. 8 capsule 09/19/2023 08/29/2024 Discontinued Start: 06-10-2022 take 500 mg by mouth twice daily Cephalexin Active 500 MG PO TWICE A DAY June 09, 2022 11:00pm Comment on above: Take 1 capsule by mo ut four times daily. lisinopril 5 mg oral tablet (3 sources) Angiotensin Converting Enzyme Inhibitor End: 03-09-20 take 1 tablet by mouth once daily lisinopril (ZESTRIL, PRINIVIL) 5 mg tablet Take 5 mg by mouth once daily. 0 03/09/2022 Discontinued Comment on above: Take 5 mg by mouth o nce daily. 24 hr rivastigmine 0.192 mg/hr transdermal system (16 sources) Start: 05-06-20 End: 11-14-19 23 apply 1 dose transdermal route once daily rivastigmine (EXELON) 4.6 mg/24 hour patch Indications: Parkinson's disease (HCC) , Memory loss Apply 1 Patch as directed once daily. 30 Patch 3 05/06/2022 11/14/2022 Discontinued Comment on above: Apply 1 Patch as dir ected once daily. Problems Active Problems Problem Classification Problem Date Documented Da te Episodic/Chronic Blindness and vision defects (1 source) Visual hallucinations; Translations: [Visual hallucinations] 04-17-2025 Episodic Complication of device; implant or graft (6 sources) Mechanical complication of nervous system device; Translations: [Other mechanical complication of implanted electronic neurostimulator of brain electrode (lead), initial encounter] Episodic Deficiency and other anemia (2 sources) Iron deficiency anemia, unspecified; Translations: [Iron deficiency anemia, unspecified] Onset: 4 Episodic Deficiency and other anemia (1 source) Iron deficiency anemia 08-06-2024 Episodic Diabetes mellitus with complications (20 sources) Ketoacidosis due to type 2 diabetes mellitus; Translations: [Type 2 diabetes mellitus with ketoacidosis without coma] Onset: 4 06-02-2020 Chronic Diabetes mellitus without complication (20 sources) Diabetes mellitus; Translations: [Type 2 diabetes mellitus without complications] Onset: 0 08-20-2018 Chronic Comment on above: TYPE II. MANGED BY D IET AND EXERCISE. Disorders of lipid metabolism (20 sources) Pure hypercholesterolemia; Translations: [Pure hypercholesterolemia, unspecified] Onset: 0 Chronic E Codes: Fall (8 sources) Fall; Translations: [Unspecified fall, initial encounter] Episodic Esophageal disorders (20 sources) Gastroesophageal reflux disease without esophagitis; Translations: [Gastro-esophageal reflux disease without esophagitis] Onset: 0 Chronic Essential hypertension (20 sources) Essential hypertension; Translations: [Essential (primary) hypertension] Onset: 0 Chronic Fracture of neck of femur (hip) (1 source) Closed fracture of intracapsular section of femur; Translations: [Unspecified intracapsular fracture of left femur, initial encounter for closed fracture] Onset: 2 Episodic Fracture of upper limb (2 sources) Closed fracture of olecranon process of ulna; Translations: [Displaced fracture of olecranon process without intraarticular extension of left ulna, initial encounter for closed fracture] 09-03-2022 Episodic Genitourinary symptoms and ill-defined conditions (3 sources) Unspecified urinary incontinence; Translations: [Urinary incontinence] Onset: 4 Chronic Malaise and fatigue (1 source) Asthenia; Translations: [Weakness] Onset: 2 Episodic Mood disorders (2 sources) Depressive disorder; Translations: [Depression, unspecified] Onset: 2 Chronic Nutritional deficiencies (20 sources) Moderate protein energy malnutrition; Translations: [Moderate protein-calorie malnutrition] Onset: 1 03-08-2021 Chronic Open wounds of head; neck; and trunk (7 sources) Scalp laceration; Translations: [Laceration without foreign body of scalp, initial encounter] Episodic Osteoporosis (20 sources) Primary osteoporosis; Translations: [Age-related osteoporosis without current pathological fracture] Onset: 0 Chronic Other aftercare (1 source) Surgical follow-up 09-29-2023 Episodic Other gastrointestinal disorders (1 source) Constipation, unspecified; Translations: [Constipation, unspecified] Onset: 2 Episodic Other gastrointestinal disorders (2 sources) Constipation 02-08-2022 Episodic Other injuries and conditions due to external causes (1 source) H/O: fracture; Translations: [Personal history of (healed) traumatic fracture] Onset: 2 Episodic Other screening for suspected conditions (not mental disorders or infectious disease) (1 source) Imaging result abnormal; Translations: [Abnormal findings on diagnostic imaging of other specified body structures] Onset: 2 Chronic Other screening for suspected conditions (not mental disorders or infectious disease) (4 sources) Encounter for other screening for malignant neoplasm of breast; Translations: [Viral screening status] Onset: 3 02-06-2024 Episodic Other skin disorders (1 source) Disorder of skin of upper limb 12-06-2024 Episodic Parkinson`s disease (20 sources) Parkinson's disease; Translations: [Parkinson's disease] Onset: 8 Chronic Parkinson`s disease (1 source) Parkinson`s disease; Translations: [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)] Onset: 1 Residual codes; unclassified (2 sources) Presence of other specified functional implants; Translations: [Other postprocedural status] Chronic Residual codes; unclassified (1 source) Insomnia; Translations: [Insomnia, unspecified] Onset: 2 Episodic Residual codes; unclassified (1 source) Amnesia; Translations: [Other amnesia] Episodic Residual codes; unclassified (5 sources) Altered mental status; Translations: [Altered mental status, unspecified] 05-25-2022 Episodic Residual codes; unclassified (1 source) Needs influenza immunization 08-06-2024 Episodic Superficial injury; contusion (4 sources) Hematoma of scalp; Translations: [Contusion of scalp, initial encounter] 09-11-2022 Episodic Thyroid disorders (20 sources) Hypothyroidism; Translations: [Hypothyroidism, unspecified] Onset: Chronic Unclassified (1 source) Fracture of first lumbar vertebra 08-06-2024 Unclassified (1 source) Patient encounter status 02-06-2024 Past or Other Problems Problem Classification Problem Date Documented Da te Episodic/Chronic Conditions associated with dizziness or vertigo (2 sources) Dizziness and giddiness; Translations: [Dizziness and giddiness] Onset: 09-25-2023 Episodic Genitourinary symptoms and ill-defined conditions (3 sources) Increased frequency of urination; Translations: [Frequency of micturition] Onset: 03-14-2025 03-14-2025 Episodic Immunizations and screening for infectious disease (2 sources) Encounter for screening for other viral diseases; Translations: [Encounter for screening for other viral diseases] Onset: 02-06-2024 Episodic Other non-epithelial cancer of skin (2 sources) Basal cell carcinoma of skin of left ear and external auricular canal; Translations: [Basal cell carcinoma of skin of left ear and external auricular canal] Onset: 08-24-2023 Episodic Other skin disorders (2 sources) Nonscarring hair loss, unspecified; Translations: [Nonscarring hair loss, unspecified] Onset: 01-16-2025 Episodic Results Test Name Value Interpretation Reference Range Facility Neurology Visit Reporton Neurology Visit Report [facility] [address] [place] [address], [address] [place] [address] OFFICE VISIT Date of Service: 09/04/25 MR#: [id number] Acct: [id number] Name: TAMAR PRADO Rep #: [id number] : 1945 Provider: SAMANTHA head Age/Sex: 80/F Location: [facility] Status: Signed HPI HPI Chief Complaint: Establish Care Details: History of present illness: Mrs. Prado is AN 80-year-old female who presents to neurology today 09/04/2025 to establish care. She was referred by Dr. Olu Perez with [facility] for evaluation of dementia. Patient is accompanied by her Anders. She has a history of Parkinson's disease with dyskinesias. She is s/p deep brain stimulator implantation with good therapeutic response in regard to her motor fluctuations. Medications include rasagiline 1mg tablet once daily. She has dementia and hallucinations and is also on Nuplazid, quetiapine, and trazodone nightly. She follows with [facility] for management of this disease. The primary concern that brought the patient to our office today was dementia and to have discussions about workup and potential treatment options. Patient is solely dependent on her /family to care for her. She needs full assistance to bathe, use the restroom, eat. She is unable to do the finances, cook, remember appointments/medications, drive, etc. ROS: Per HPI Physical Exam: Patient is alert and awake. She is pleasant and cooperative but it is reported that she has hallucinations. She is able to respond to questions but often is off topic. Her speech is hypophonic. She has poor comprehension. Her tremor is very mild in her bilateral hands. The DBS battery is on her right chest. Her gait is unsteady and she requires assistance with putting on her coat and ambulating. Assessment and Plan Assessment and Plan (1) Parkinson's disease dementia: Status: Acute Medications: Discontinued potassium chloride ER Discontinued Reason: Pt no longer taking 20 mEq PO BIDCM 30 days 60 tabs 0RF tizanidine Discontinued Reason: Pt no longer taking 2 mg PO Q8H PRN 30 days PRN 90 tabs 0RF Muscle Spasm ascorbic acid (vitamin C) Discontinued Reason: Pt no longer taking 1,000 mg (2 x 500 mg) PO BIDCM 0 tabs 0RF supplement lactulose Discontinued Reason: Pt no longer taking 10 grams (15 mL) PO TID PRN 0 mL 0RF constipation Plan ASSESSMENT: Patient with a moderate???severe dementia. Considering the patient's clinical history, patient appears to have Parkinson's disease and Lewy body dementia as it is in the same spectrum of disease. Alzheimer's disease or a vascular dementia would be another consideration. I had offered to screen the patient for Alzheimer's disease with serum blood biomarkers; however, considering that further treatment will not be pursued, this would not necessarily change the current plan of care. The severity of her dementia would disqualify her for amyloid targeted therapy (i.e. Kisunla infusions) due to the lack of potential benefit. Symptom management is the primary focus in this case. PLAN: ??? Workup/treatment options discussed. All questions were addressed. Patient/ wishes to defer. ??? Focus on symptom management, follow [facility] recommendations ??? Encouraged implementation of safety measures Patient to follow-up with neurology on an as needed basis and to call with any further questions/concerns. Intake Vital Signs 04/10/24 12:07 09/04/25 10:55 Height 1.52 m 1.52 m Weight: 48.988 kg BMI 21.1 BP 115/78 Blood Pressure Location Lt brachial Position Sitting Respiration 16 Pulse 89 Pulse Source Monitor Temp 98.2 F Temp Source Temporal Pulse Oximetry (%) 93 Oxygen Delivery Method room air Intake Visit Reasons: Establish Care for Parkinson's Dementia Chief Complaint: Establish Care Film Recordist Required: No Accompanied by: Allergies lorazepam (From Ativan) Adverse Reaction (Intermediate, Verified 09/04/25 11:05) Other haloperidol (From Haldol) Adverse Reaction (Verified 09/04/25 11:05) Other Have you fallen in the past year?: Yes [facility] Medical History (Updated 04/21/24 @ 00:03 by Background Daemon) Kidney stone Closed compression fracture of L1 vertebra Fall 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 Normal [facility] A1Con 08-14-2025 Glucose [Mass/Vol] 148 mg/dL Normal [facility] MAIN Comment on above: Result Comment: Prudence mated Average Glucose calculated by equation ((28.7xA1C)-46.7) Estimated average glucose (eAG) is a calculated value from Hemoglobin A1C and is community relations representative of the average blood glucose level in the last 2-3 month period. Normal range: less than 114 mg/dL Performed By: #### A 1C, CBC, TSH, GFR, FT4, LIPID, ADIFF, ANEU, CMP #### [address] [address] HbA1c (Bld) [Mass fraction] 6.8 % High 4.0-6.0 [facility] MAIN Comment on above: Performed By: #### A 1C, CBC, TSH, GFR, FT4, LIPID, ADIFF, ANEU, CMP #### [address] [address] .Auto Diffon 08-13-2025 Basophil, Absolute 0.0 10 3/mcL Normal 0.0-0.3 [facility] MAIN Comment on above: Performed By: #### A 1C, CBC, TSH, GFR, FT4, LIPID, ADIFF, ANEU, CMP #### [address] [address] Basophils/100 WBC (Bld) 0.3 % Normal 0.0-2.5 [facility] MAIN Comment on above: Performed By: #### A 1C, CBC, TSH, GFR, FT4, LIPID, ADIFF, ANEU, CMP #### [address] [address] Eosinophil, Absolute 0.1 10 3/mcL Normal 0.0-0.7 [facility] MAIN Comment on above: Performed By: #### A 1C, CBC, TSH, GFR, FT4, LIPID, ADIFF, ANEU, CMP #### [address] [address] Eosinophils/100 WBC (Bld) 1.2 % Normal 0.0-6.0 [facility] MAIN Comment on above: Performed By: #### A 1C, CBC, TSH, GFR, FT4, LIPID, ADIFF, ANEU, CMP #### [address] [address] Lymphocyte, Absolute 2.0 10 3/mcL Normal 0.9-4.3 [facility] MAIN Comment on above: Performed By: #### A 1C, CBC, TSH, GFR, FT4, LIPID, ADIFF, ANEU, CMP #### [address] [address] Lymphocytes/100 WBC (Bld) 31.9 % Normal 20.0-40.0 [facility] MAIN Comment on above: Performed By: #### A 1C, CBC, TSH, GFR, FT4, LIPID, ADIFF, ANEU, CMP #### [address] [address] Monocyte, Absolute 0.4 10 3/mcL Normal 0.1-1.4 [facility] MAIN Comment on above: Performed By: #### A 1C, CBC, TSH, GFR, FT4, LIPID, ADIFF, ANEU, CMP #### [address] [address] Monocytes/100 WBC (Bld) 6.3 % Normal 2.0-13.0 [facility] MAIN Comment on above: Performed By: #### A 1C, CBC, TSH, GFR, FT4, LIPID, ADIFF, ANEU, CMP #### [place] [address] Neutrophils/100 WBC (Bld) 60.3 % Normal 50.0-75.0 [facility] MAIN Comment on above: Performed By: #### A 1C, CBC, TSH, GFR, FT4, LIPID, ADIFF, ANEU, CMP #### [address] [address] .GFRon 08-13-2025 Estimated Glomerular Filtration Rate 89 ml/min/1.73sqm Normal [facility] MAIN Comment on above: Result Comment: Stages of Chronic Kidney Disease (CKD) Stage Description eGFR(ml/min/1.73 sq.m.) CKD 1 Normal kidney function or >=90 normal kindney function with possible kidney damage (ex. Proteinuria) CKD 2 Kidney damage with mild loss 60-89 of kidney function CKD 3a Mild to moderate loss of kidney 45-59 function CKD 3b Moderate to severe loss of 30-44 of kindey function CKD 4 Severe loss of kidney function 15-29 CKD 5 Kidney failure <15 Note: (go live 2024) the eGFR calculation was updated to the 2020 CKD-EPI creatinine equation without a race factor to calculate the eGFR results. Performed By: #### A 1C, CBC, TSH, GFR, FT4, LIPID, ADIFF, ANEU, CMP #### [address] [address] .NEUABSon 08-13-2025 Neutrophil, Absolute 3.8 10 3/mcL Normal 2.3-8.1 [facility] MAIN Comment on above: Performed By: #### A 1C, CBC, TSH, GFR, FT4, LIPID, ADIFF, ANEU, CMP #### [place] [address] CBCon 08-13-2025 Erythrocyte distribution width (RBC) [Ratio] 13.5 % Normal 11.5-15.5 [facility] MAIN Comment on above: Performed By: #### A 1C, CBC, TSH, GFR, FT4, LIPID, ADIFF, ANEU, CMP #### [place] [address] Hematocrit (Bld) [Volume fraction] 43.9 % Normal 34.0-46.0 [facility] MAIN Comment on above: Performed By: #### A 1C, CBC, TSH, GFR, FT4, LIPID, ADIFF, ANEU, CMP #### [place] [address] Hgb 15.3 G/dL Normal 12.0-16.0 [facility] MAIN Comment on above: Performed By: #### A 1C, CBC, TSH, GFR, FT4, LIPID, ADIFF, ANEU, CMP #### [place] [address] MCH (RBC) [Entitic mass] 32.7 pg Normal 27.0-33.0 [facility] MAIN Comment on above: Performed By: #### A 1C, CBC, TSH, GFR, FT4, LIPID, ADIFF, ANEU, CMP #### [place] [address] MCHC 34.8 G/dL Normal 32.0-36.0 [facility] MAIN Comment on above: Performed By: #### A 1C, CBC, TSH, GFR, FT4, LIPID, ADIFF, ANEU, CMP #### [place] [address] MCV (RBC) [Entitic vol] 94.0 fL Normal 80.0-99.0 [facility] MAIN Comment on above: Performed By: #### A 1C, CBC, TSH, GFR, FT4, LIPID, ADIFF, ANEU, CMP #### [place] [address] Platelet 313 10 3/mcL Normal 150-450 [facility] MAIN Comment on above: Performed By: #### A 1C, CBC, TSH, GFR, FT4, LIPID, ADIFF, ANEU, CMP #### [place] [address] Platelet mean volume (Bld) [Entitic vol] 7.7 fL Normal 6.6-10.5 [facility] MAIN Comment on above: Performed By: #### A 1C, CBC, TSH, GFR, FT4, LIPID, ADIFF, ANEU, CMP #### [place] [address] RBC 4.67 10 6/mcL Normal 4.10-5.30 [facility] MAIN Comment on above: Performed By: #### A 1C, CBC, TSH, GFR, FT4, LIPID, ADIFF, ANEU, CMP #### [place] [address] WBC 6.3 10 3/mcL Normal 4.5-10.8 [facility] MAIN Comment on above: Performed By: #### A 1C, CBC, TSH, GFR, FT4, LIPID, ADIFF, ANEU, CMP #### [place] [address] CMPon 08-13-2025 Albumin Level 4.0 G/dL Normal 3.2-4.8 [facility] MAIN Comment on above: Performed By: #### A 1C, CBC, TSH, GFR, FT4, LIPID, ADIFF, ANEU, CMP #### [place] [address] Albumin/Globulin [Mass ratio] 1.2 {ratio} Normal 0.9-1.6 [facility] MAIN Comment on above: Performed By: #### A 1C, CBC, TSH, GFR, FT4, LIPID, ADIFF, ANEU, CMP #### [place] [address] ALP [Catalytic activity/Vol] 67 U/L Normal 38-126 [facility] MAIN Comment on above: Performed By: #### A 1C, CBC, TSH, GFR, FT4, LIPID, ADIFF, ANEU, CMP #### [place] [id number] ALT [Catalytic activity/Vol] 25 U/L Normal 10-49 [facility] MAIN Comment on above: Performed By: #### A 1C, CBC, TSH, GFR, FT4, LIPID, ADIFF, ANEU, CMP #### [address] [address] AST [Catalytic activity/Vol] 31 U/L Normal 8-34 [facility] MAIN Comment on above: Performed By: #### A 1C, CBC, TSH, GFR, FT4, LIPID, ADIFF, ANEU, CMP #### [place] [address] Bili Total 0.90 mg/dL Normal 0.20-1.20 [facility] MAIN Comment on above: Result Comment: Use of this assay is not recommended for patients undergoing treatment with eltrombopag due to the potential for falsely elevated results. Performed By: #### A 1C, CBC, TSH, GFR, FT4, LIPID, ADIFF, ANEU, CMP #### [place] [address] BUN/Creatinine Ratio 15.6 ratio Normal 10.0-22.0 [facility] MAIN Comment on above: Performed By: #### A 1C, CBC, TSH, GFR, FT4, LIPID, ADIFF, ANEU, CMP #### [place] [phone] Calcium [Mass/Vol] 9.8 mg/dL Normal 8.7-10.4 [facility] Comment on above: Performed By: #### A 1C, CBC, TSH, GFR, FT4, LIPID, ADIFF, ANEU, CMP #### [place] [phone] Chloride [Moles/Vol] 101 mmol/L Normal 98-110 [facility] MAIN Comment on above: Performed By: #### A 1C, CBC, TSH, GFR, FT4, LIPID, ADIFF, ANEU, CMP #### [place] [phone] CO2 [Moles/Vol] 32 mmol/L Normal 22-32 [facility] MAIN Comment on above: Performed By: #### A 1C, CBC, TSH, GFR, FT4, LIPID, ADIFF, ANEU, CMP #### [place] [phone] Creatinine [Mass/Vol] 0.64 mg/dL Normal 0.50-1.20 [facility] MAIN Comment on above: Result Comment: Test ing performed on [employer] analyzer using enzymatic creatinine methodology. Performed By: #### A 1C, CBC, TSH, GFR, FT4, LIPID, ADIFF, ANEU, CMP #### [place] [phone] Electrolyte Balance 9.0 mEq/L Normal 4.0-15.0 [facility] MAIN Comment on above: Performed By: #### A 1C, CBC, TSH, GFR, FT4, LIPID, ADIFF, ANEU, CMP #### [address] [address] Globulin 3.4 G/dL Normal 2.5-4.2 [facility] MAIN Comment on above: Performed By: #### A 1C, CBC, TSH, GFR, FT4, LIPID, ADIFF, ANEU, CMP #### [address] [address] Glucose [Mass/Vol] 106 mg/dL Normal 82-115 [facility] MA[facility] Comment on above: Performed By: #### A 1C, CBC, TSH, GFR, FT4, LIPID, ADIFF, ANEU, CMP #### [address] [address] Potassium [Moles/Vol] 4.2 mmol/L Normal 3.5-5.0 [facility] MAIN Comment on above: Performed By: #### A 1C, CBC, TSH, GFR, FT4, LIPID, ADIFF, ANEU, CMP #### [address] [address] Sodium [Moles/Vol] 142 mmol/L Normal 136-145 [facility] MA[facility] Comment on above: Performed By: #### A 1C, CBC, TSH, GFR, FT4, LIPID, ADIFF, ANEU, CMP #### [address] [address] Total Protein 7.4 G/dL Normal 5.7-8.2 [facility] MAIN Comment on above: Performed By: #### A 1C, CBC, TSH, GFR, FT4, LIPID, ADIFF, ANEU, CMP #### [address] [address] Urea nitrogen [Mass/Vol] 10.0 mg/dL Normal 8.0-22.0 [facility] MAIN Comment on above: Performed By: #### A 1C, CBC, TSH, GFR, FT4, LIPID, ADIFF, ANEU, CMP #### [address] [address] FT4on 08-13-2025 Free T4 [Mass/Vol] 1.28 ng/dL Normal 0.89-1.76 [facility] MAIN Comment on above: Result Comment: No te - New Reference Range in effect 20 Performed By: #### A 1C, CBC, TSH, GFR, FT4, LIPID, ADIFF, ANEU, CMP #### [place] [address] LIPIDon 08-13-2025 Cholesterol [Mass/Vol] 188 mg/dL Normal 50-199 [facility] MAIN Comment on above: Result Comment: Chol esterol Reference Interval: Less than 200 Desirable 200-239 Borderline high risk 240 and above High risk Performed By: #### A 1C, CBC, TSH, GFR, FT4, LIPID, ADIFF, ANEU, CMP #### [place] [address] Cholesterol in HDL [Mass/Vol] 42 mg/dL Normal 40-59 [facility] MAIN Comment on above: Performed By: #### A 1C, CBC, TSH, GFR, FT4, LIPID, ADIFF, ANEU, CMP #### [place] [address] Cholesterol in LDL [Mass/Vol] 110 mg/dL Normal 0-129 [facility] MAIN Comment on above: Performed By: #### A 1C, CBC, TSH, GFR, FT4, LIPID, ADIFF, ANEU, CMP #### [place] [address] Triglyceride [Mass/Vol] 182 mg/dL High 3-149 [facility] MAIN Comment on above: Performed By: #### A 1C, CBC, TSH, GFR, FT4, LIPID, ADIFF, ANEU, CMP #### [place] [address] TSHon 08-13-2025 TSH 2.139 mIU/mL Normal 0.550-4.78 0 [facility] MAIN Comment on above: Performed By: #### A 1C, CBC, TSH, GFR, FT4, LIPID, ADIFF, ANEU, CMP #### [place] [id number] XR FEMUR MINIMUM 2 VIEWS RIG HTon 2025 XR FEMUR MINIMUM 2 VIEWS RIGHT ORIGINAL EXAMINATION: 2 XRAY VIEWS OF THE RIGHT HIP, 2 VIEWS OF THE PELVIS; TWO XRAY VIEWS OF THE RIGHT FEMUR07/30/2025 5:09 pm COMPARISON: None HISTORY: ORDERING SYSTEM PROVIDED HISTORY: Reason for Exam: hip/groin pain s/p fall; ORDERING SYSTEM PROVIDED HISTORY: Reason for Exam: right femur pain s/p fall FINDINGS: There is post surgical pinning of the left hip. There are lower lumbar degenerative changes. There are degenerative changes of the sacroiliac joints. Otherwise, the pelvic ring is intact. No hip fracture or dislocation. Additional dedicated images of the right femur reveal no fracture, dislocation, or aggressive osseous lesion. IMPRESSION: 1. No acute fracture or dislocation. 2. Postsurgical changes of the left hip. Interpreted by: Chris Garrett DO Preliminary Report By: Chris Garrett DO Electronically signed By Chris Garrett DO Dictated Date: 2025 11:07:56 AM Prelim Date: 2025 11:09:41 AM Sign Date: 2025 11:09:41 AM Ordering Provider: MARILEE RODRIGUEZ [facility] XR HIP RIGHT W/PELVIS 4 VIEW Son 2025 XR HIP RIGHT W/PELVIS 4 VIEWS ORIGINAL EXAMINATION: 2 XRAY VIEWS OF THE RIGHT HIP, 2 VIEWS OF THE PELVIS; TWO XRAY VIEWS OF THE RIGHT FEMUR07/30/2025 5:09 pm COMPARISON: None HISTORY: ORDERING SYSTEM PROVIDED HISTORY: Reason for Exam: hip/groin pain s/p fall; ORDERING SYSTEM PROVIDED HISTORY: Reason for Exam: right femur pain s/p fall FINDINGS: There is post surgical pinning of the left hip. There are lower lumbar degenerative changes. There are degenerative changes of the sacroiliac joints. Otherwise, the pelvic ring is intact. No hip fracture or dislocation. Additional dedicated images of the right femur reveal no fracture, dislocation, or aggressive osseous lesion. IMPRESSION: 1. No acute fracture or dislocation. 2. Postsurgical changes of the left hip. Interpreted by: Chris Garrett DO Preliminary Report By: Chris Garrett DO Electronically signed By Chris Garrett DO Dictated Date: 2025 11:07:56 AM Prelim Date: 2025 11:09:41 AM Sign Date: 2025 11:09:41 AM Ordering Provider: MARILEE RODRIGUEZ Normal [facility] .Auto Diffon 02-11-2025 Basophil, Absolute 0.0 10 3/mcL Normal 0.0-0.3 [facility] Comment on above: Performed By: #### G FR, CMP, A1C, CBC, LIPID, ANEU, ADIFF ####[place] [id number] [place], [place] [address] Basophils/100 WBC (Bld) 0.4 % Normal 0.0-2.5 [facility] Comment on above: Performed By: #### G FR, CMP, A1C, CBC, LIPID, ANEU, ADIFF ####[place] [address] [place], [place] [address] Eosinophil, Absolute 0.1 10 3/mcL Normal 0.0-0.7 [facility] Comment on above: Performed By: #### G FR, CMP, A1C, CBC, LIPID, ANEU, ADIFF ####[facility] [place], [place] [address] Eosinophils/100 WBC (Bld) 1.1 % Normal 0.0-6.0 [facility] Comment on above: Performed By: #### G FR, CMP, A1C, CBC, LIPID, ANEU, ADIFF ####[place] [id number] [place], [place] [address] Lymphocyte, Absolute 2.3 10 3/mcL Normal 0.9-4.3 [facility] Comment on above: Performed By: #### G FR, CMP, A1C, CBC, LIPID, ANEU, ADIFF ####[facility] [place], [place] [address] Lymphocytes/100 WBC (Bld) 24.7 % Normal 20.0-40.0 [facility] Comment on above: Performed By: #### G FR, CMP, A1C, CBC, LIPID, ANEU, ADIFF ####[facility] [place], [place] [address] Monocyte, Absolute 0.6 10 3/mcL Normal 0.1-1.4 [facility] Comment on above: Performed By: #### G FR, CMP, A1C, CBC, LIPID, ANEU, ADIFF ####[facility] [place], [place] [address] Monocytes/100 WBC (Bld) 6.8 % Normal 2.0-13.0 [facility] Comment on above: Performed By: #### G FR, CMP, A1C, CBC, LIPID, ANEU, ADIFF ####[facility] [place], [place] [address] Neutrophils/100 WBC (Bld) 67.0 % Normal 50.0-75.0 [facility] Comment on above: Performed By: #### G FR, CMP, A1C, CBC, LIPID, ANEU, ADIFF ####[facility] [place], [place] [address] .GFRon 02-11-2025 Estimated Glomerular Filtration Rate 89 ml/min/1.73sqm Normal [facility] Comment on above: Result Comment: Stages of Chronic Kidney Disease (CKD) Stage Description eGFR(ml/min/1.73 sq.m.) CKD 1 Normal kidney function or >=90 normal kindney function with possible kidney damage (ex. Proteinuria) CKD 2 Kidney damage with mild loss 60-89 of kidney function CKD 3a Mild to moderate loss of kidney 45-59 function CKD 3b Moderate to severe loss of 30-44 of kindey function CKD 4 Severe loss of kidney function 15-29 CKD 5 Kidney failure <15 Note: (go live 2024) the eGFR calculation was updated to the 2020 CKD-EPI creatinine equation without a race factor to calculate the eGFR results. Performed By: #### G FR, CMP, A1C, CBC, LIPID, ANEU, ADIFF ####[facility] [place], [place] [address] .NEUABSon 02-11-2025 Neutrophil, Absolute 6.2 10 3/mcL Normal 2.3-8.1 [facility] Comment on above: Performed By: #### G FR, CMP, A1C, CBC, LIPID, ANEU, ADIFF ####[place] [address] [place], [place] [address] A1Con 02-11-2025 Glucose [Mass/Vol] 146 mg/dL Normal [facility] Comment on above: Result Comment: Prudence mated Average Glucose calculated by equation ((28.7xA1C)-46.7) Estimated average glucose (eAG) is a calculated value from Hemoglobin A1C and is community relations representative of the average blood glucose level in the last 2-3 month period. Normal range: less than 114 mg/dL Performed By: #### G FR, CMP, A1C, CBC, LIPID, ANEU, ADIFF ####[address] [place] [address] HbA1c (Bld) [Mass fraction] 6.7 % High 4.3-6.4 [facility] Comment on above: Performed By: #### G FR, CMP, A1C, CBC, LIPID, ANEU, ADIFF ####[address] [id number] [place] [address] CBCon 02-11-2025 Erythrocyte distribution width (RBC) [Ratio] 13.3 % Normal 11.5-15.5 [facility] Comment on above: Performed By: #### G FR, CMP, A1C, CBC, LIPID, ANEU, ADIFF ####[place] [id number] [place] [address] Hematocrit (Bld) [Volume fraction] 43.5 % Normal 34.0-46.0 [facility] Comment on above: Performed By: #### G FR, CMP, A1C, CBC, LIPID, ANEU, ADIFF ####[place] [address] Hgb 14.7 G/dL Normal 12.0-16.0 [facility] Comment on above: Performed By: #### G FR, CMP, A1C, CBC, LIPID, ANEU, ADIFF ####[place] [address] [place] [address] MCH (RBC) [Entitic mass] 32.1 pg Normal 27.0-33.0 [facility] Comment on above: Performed By: #### G FR, CMP, A1C, CBC, LIPID, ANEU, ADIFF ####[place] [address] [id number] MCHC 33.8 G/dL Normal 32.0-36.0 [facility] Comment on above: Performed By: #### G FR, CMP, A1C, CBC, LIPID, ANEU, ADIFF ####[address] [place], [place] [address] MCV (RBC) [Entitic vol] 94.9 fL Normal 80.0-99.0 [facility] Comment on above: Performed By: #### G FR, CMP, A1C, CBC, LIPID, ANEU, ADIFF ####[id number] [place], [place] [address] Platelet 343 10 3/mcL Normal 150-450 [facility] Comment on above: Performed By: #### G FR, CMP, A1C, CBC, LIPID, ANEU, ADIFF ####[address] [place], [place] [address] Platelet mean volume (Bld) [Entitic vol] 7.8 fL Normal 6.6-10.5 [facility] Comment on above: Performed By: #### G FR, CMP, A1C, CBC, LIPID, ANEU, ADIFF ####[address] [place], [place] [address] RBC 4.58 10 6/mcL Normal 4.10-5.30 [facility] Comment on above: Performed By: #### G FR, CMP, A1C, CBC, LIPID, ANEU, ADIFF ####[id number] [place], [place] [address] WBC 9.3 10 3/mcL Normal 4.5-10.8 [facility] Comment on above: Performed By: #### G FR, CMP, A1C, CBC, LIPID, ANEU, ADIFF ####[address] [place], [place] [address] CMPon 02-11-2025 Albumin Level 3.7 G/dL Normal 3.4-4.8 [facility] Comment on above: Performed By: #### G FR, CMP, A1C, CBC, LIPID, ANEU, ADIFF ####[id number] [place], [place] [address] Albumin/Globulin [Mass ratio] 1.0 {ratio} Low 1.1-2.5 [facility] Comment on above: Performed By: #### G FR, CMP, A1C, CBC, LIPID, ANEU, ADIFF ####[place] [address] [place], [place] [address] ALP [Catalytic activity/Vol] 87 U/L Normal 40-135 [facility] Comment on above: Performed By: #### G FR, CMP, A1C, CBC, LIPID, ANEU, ADIFF ####[id number] [place], [place] [address] ALT [Catalytic activity/Vol] 37 U/L Normal 14-59 [facility] Comment on above: Performed By: #### G FR, CMP, A1C, CBC, LIPID, ANEU, ADIFF ####[place] [address] [id number] [place], [place] [address] AST [Catalytic activity/Vol] 41 U/L High 10-40 [facility] Comment on above: Performed By: #### G FR, CMP, A1C, CBC, LIPID, ANEU, ADIFF ####[place] [address] [place], [place] [address] Bili Total 0.6 mg/dL Normal 0.2-1.0 [facility] Comment on above: Result Comment: Use of this assay is not recommended for patients undergoing treatment with eltrombopag due to the potential for falsely elevated results. Performed By: #### G FR, CMP, A1C, CBC, LIPID, ANEU, ADIFF ####[facility] [place], [place] [address] BUN/Creatinine Ratio 24 ratio Normal 7-27 [facility] Comment on above: Performed By: #### G FR, CMP, A1C, CBC, LIPID, ANEU, ADIFF ####[facility] [place], [place] [address] Calcium [Mass/Vol] 8.9 mg/dL Normal 8.4-10.2 [facility] Comment on above: Performed By: #### G FR, CMP, A1C, CBC, LIPID, ANEU, ADIFF ####[facility] [place], [place] [address] Chloride [Moles/Vol] 102 mmol/L Normal 98-107 [facility] Comment on above: Performed By: #### G FR, CMP, A1C, CBC, LIPID, ANEU, ADIFF ####[facility] [place], [place] [address] CO2 [Moles/Vol] 31 mmol/L Normal 23-31 [facility] Comment on above: Performed By: #### G FR, CMP, A1C, CBC, LIPID, ANEU, ADIFF ####[facility] [address] [place], [place] [address] Creatinine [Mass/Vol] 0.68 mg/dL Normal 0.55-1.02 [facility] Comment on above: Result Comment: Test ing performed on Siemens Dimension EXL analyzer using a modified kinetic Jeniffer technique. Performed By: #### G FR, CMP, A1C, CBC, LIPID, ANEU, ADIFF ####[id number] [place], [place] [address] Electrolyte Balance 6.0 mEq/L Normal 4.0-15.0 [facility] Comment on above: Performed By: #### G FR, CMP, A1C, CBC, LIPID, ANEU, ADIFF ####[address] [place], [place] [address] Globulin 3.8 G/dL Normal 1.5-3.8 [facility] Comment on above: Performed By: #### G FR, CMP, A1C, CBC, LIPID, ANEU, ADIFF ####[address] [place], [place] [address] Glucose [Mass/Vol] 119 mg/dL High 83-110 [facility] Comment on above: Performed By: #### G FR, CMP, A1C, CBC, LIPID, ANEU, ADIFF ####[id number] [place], [place] [address] Potassium [Moles/Vol] 4.0 mmol/L Normal 3.5-5.1 [facility] Comment on above: Performed By: #### G FR, CMP, A1C, CBC, LIPID, ANEU, ADIFF ####[place] [address] [place], [place] [address] Sodium [Moles/Vol] 139 mmol/L Normal 136-145 [facility] Comment on above: Performed By: #### G FR, CMP, A1C, CBC, LIPID, ANEU, ADIFF ####[facility] [place], [place] [address] Total Protein 7.5 G/dL Normal 6.4-8.2 [facility] Comment on above: Performed By: #### G FR, CMP, A1C, CBC, LIPID, ANEU, ADIFF ####[place] [address] [place], [place] [address] Urea nitrogen [Mass/Vol] 16 mg/dL Normal 7-18 [facility] Comment on above: Performed By: #### G FR, CMP, A1C, CBC, LIPID, ANEU, ADIFF ####[place] [address] [place], [place] [address] LIPIDon 02-11-2025 Cholesterol [Mass/Vol] 218 mg/dL High 0-200 [facility] Comment on above: Result Comment: Chol esterol Reference Interval: Less than 200 Desirable 200-239 Borderline high risk 240 and above High risk Performed By: #### G FR, CMP, A1C, CBC, LIPID, ANEU, ADIFF ####[place] [address] [place], [place] [address] Cholesterol in HDL [Mass/Vol] 50 mg/dL Normal 40-60 [facility] Comment on above: Performed By: #### G FR, CMP, A1C, CBC, LIPID, ANEU, ADIFF ####[place] [address] [place], [place] [address] Cholesterol in LDL [Mass/Vol] 133 mg/dL High 0-130 [facility] Comment on above: Performed By: #### G FR, CMP, A1C, CBC, LIPID, ANEU, ADIFF ####[address] [place], [place] [address] Triglyceride [Mass/Vol] 176 mg/dL High 0-150 [facility] Comment on above: Result Comment: Trig lyceride Reference Interval: Less than 150 Normal 150-199 Borderline high risk 200-499 High risk 500 or higher Very high risk Performed By: #### G FR, CMP, A1C, CBC, LIPID, ANEU, ADIFF ####[address] [address] B12on 01-17-2025 Cobalamin (Vitamin B12) [Mass/Vol] 748 pg/mL Normal 211-911 [facility] Comment on above: Performed By: #### A 1C, TSH, ADIFF, FT3, ANEU, FERR, FE, MG, CMP, VIDH, CBC, GFR ####[place] [address]#### B12, FT4 ####[place] [address] FT4on 01-17-2025 Free T4 [Mass/Vol] 1.26 ng/dL Normal 0.89-1.76 [facility] Comment on above: Result Comment: No te - New Reference Range in effect 20 Performed By: #### A 1C, TSH, ADIFF, FT3, ANEU, FERR, FE, MG, CMP, VIDH, CBC, GFR ####[place] [address]#### B12, FT4 ####[place] [address] .Auto Diffon 01-16-2025 Basophil, Absolute 0.1 10 3/mcL Normal 0.0-0.2 [facility] Comment on above: Performed By: #### A 1C, TSH, ADIFF, FT3, ANEU, FERR, FE, MG, CMP, VIDH, CBC, GFR #### [place] [address] #### B12, FT4 #### [place] [address] Basophils/100 WBC (Bld) 0.8 % Normal 0.0-2.5 [facility] Comment on above: Performed By: #### A 1C, TSH, ADIFF, FT3, ANEU, FERR, FE, MG, CMP, VIDH, CBC, GFR #### [address] [address] #### B12, FT4 #### [address] [address] Eosinophil, Absolute 0.1 10 3/mcL Normal 0.0-0.7 [facility] Comment on above: Performed By: #### A 1C, TSH, ADIFF, FT3, ANEU, FERR, FE, MG, CMP, VIDH, CBC, GFR #### [address] [address] #### B12, FT4 #### [address] [address] Eosinophils/100 WBC (Bld) 0.9 % Normal 0.0-7.0 [facility] Comment on above: Performed By: #### A 1C, TSH, ADIFF, FT3, ANEU, FERR, FE, MG, CMP, VIDH, CBC, GFR #### [address] [address] #### B12, FT4 #### [address] [address] Lymphocyte, Absolute 2.2 10 3/mcL Normal 0.9-4.3 [facility] Comment on above: Performed By: #### A 1C, TSH, ADIFF, FT3, ANEU, FERR, FE, MG, CMP, VIDH, CBC, GFR #### [address] [address] #### B12, FT4 #### [address] [address] Lymphocytes/100 WBC (Bld) 27.5 % Normal 20.0-40.0 [facility] Comment on above: Performed By: #### A 1C, TSH, ADIFF, FT3, ANEU, FERR, FE, MG, CMP, VIDH, CBC, GFR #### [address] [address] #### B12, FT4 #### [address] [address] Monocyte, Absolute 0.7 10 3/mcL Normal 0.1-1.4 [facility] Comment on above: Performed By: #### A 1C, TSH, ADIFF, FT3, ANEU, FERR, FE, MG, CMP, VIDH, CBC, GFR #### [address] [address] #### B12, FT4 #### [address] [address] Monocytes/100 WBC (Bld) 8.8 % Normal 2.0-13.0 [facility] Comment on above: Performed By: #### A 1C, TSH, ADIFF, FT3, ANEU, FERR, FE, MG, CMP, VIDH, CBC, GFR #### [address] [address] #### B12, FT4 #### [address] [address] Neutrophils/100 WBC (Bld) 62.0 % Normal 50.0-75.0 [facility] Comment on above: Performed By: #### A 1C, TSH, ADIFF, FT3, ANEU, FERR, FE, MG, CMP, VIDH, CBC, GFR #### [address] [address] #### B12, FT4 #### [address] [address] .GFRon 01-16-2025 Estimated Glomerular Filtration Rate 90 ml/min/1.73sqm Normal [facility] Comment on above: Result Comment: Stages of Chronic Kidney Disease (CKD) Stage Description eGFR(ml/min/1.73 sq.m.) CKD 1 Normal kidney function or >=90 normal kindney function with possible kidney damage (ex. Proteinuria) CKD 2 Kidney damage with mild loss 60-89 of kidney function CKD 3a Mild to moderate loss of kidney 45-59 function CKD 3b Moderate to severe loss of 30-44 of kindey function CKD 4 Severe loss of kidney function 15-29 CKD 5 Kidney failure <15 Note: (go live 2024) the eGFR calculation was updated to the 2020 CKD-EPI creatinine equation without a race factor to calculate the eGFR results. Performed By: #### A 1C, TSH, ADIFF, FT3, ANEU, FERR, FE, MG, CMP, VIDH, CBC, GFR ####[place] [address]#### B12, FT4 ####[place] [address] .NEUABSon 01-16-2025 Neutrophil, Absolute 4.9 10 3/mcL Normal 2.3-8.1 [facility] Comment on above: Performed By: #### A 1C, TSH, ADIFF, FT3, ANEU, FERR, FE, MG, CMP, VIDH, CBC, GFR #### [place] [address] #### B12, FT4 #### [place] [address] A1Con 01-16-2025 Glucose [Mass/Vol] 140 mg/dL Normal [facility] Comment on above: Result Comment: Prudence mated Average Glucose calculated by equation ((28.7xA1C)-46.7) Estimated average glucose (eAG) is a calculated value from Hemoglobin A1C and is community relations representative of the average blood glucose level in the last 2-3 month period. Normal range: less than 114 mg/dL Performed By: #### A 1C, TSH, ADIFF, FT3, ANEU, FERR, FE, MG, CMP, VIDH, CBC, GFR ####[place] [address]#### B12, FT4 ####[place] [address] HbA1c (Bld) [Mass fraction] 6.5 % High 4.3-6.4 [facility] Comment on above: Performed By: #### A 1C, TSH, ADIFF, FT3, ANEU, FERR, FE, MG, CMP, VIDH, CBC, GFR ####[place] [address]#### B12, FT4 ####[place] [address] CBCon 01-16-2025 Erythrocyte distribution width (RBC) [Ratio] 13.4 % Normal 11.5-15.5 [facility] Comment on above: Performed By: #### A 1C, TSH, ADIFF, FT3, ANEU, FERR, FE, MG, CMP, VIDH, CBC, GFR #### [place] [address] #### B12, FT4 #### [place] [address] Hematocrit (Bld) [Volume fraction] 42.5 % Normal 34.0-46.0 [facility] Comment on above: Performed By: #### A 1C, TSH, ADIFF, FT3, ANEU, FERR, FE, MG, CMP, VIDH, CBC, GFR #### [place] [address] #### B12, FT4 #### [place] [address] Hgb 14.6 G/dL Normal 12.0-16.0 [facility] Comment on above: Performed By: #### A 1C, TSH, ADIFF, FT3, ANEU, FERR, FE, MG, CMP, VIDH, CBC, GFR #### [place] [id number] #### B12, FT4 #### [place] [address] MCH (RBC) [Entitic mass] 32.4 pg Normal 27.0-33.0 [facility] Comment on above: Performed By: #### A 1C, TSH, ADIFF, FT3, ANEU, FERR, FE, MG, CMP, VIDH, CBC, GFR #### [place] [address] #### B12, FT4 #### [place] [address] MCHC 34.4 G/dL Normal 32.0-36.0 [facility] Comment on above: Performed By: #### A 1C, TSH, ADIFF, FT3, ANEU, FERR, FE, MG, CMP, VIDH, CBC, GFR #### [place] [address] #### B12, FT4 #### [place] [address] MCV (RBC) [Entitic vol] 94.3 fL Normal 80.0-99.0 [facility] Comment on above: Performed By: #### A 1C, TSH, ADIFF, FT3, ANEU, FERR, FE, MG, CMP, VIDH, CBC, GFR #### [place] [address] #### B12, FT4 #### [place] [address] Platelet 338 10 3/mcL Normal 150-450 [facility] Comment on above: Performed By: #### A 1C, TSH, ADIFF, FT3, ANEU, FERR, FE, MG, CMP, VIDH, CBC, GFR #### [place] [address] #### B12, FT4 #### [place] [address] Platelet mean volume (Bld) [Entitic vol] 8.0 fL Normal 6.6-10.5 [facility] Comment on above: Performed By: #### A 1C, TSH, ADIFF, FT3, ANEU, FERR, FE, MG, CMP, VIDH, CBC, GFR #### [place] [address] #### B12, FT4 #### [place] [address] RBC 4.51 10 6/mcL Normal 4.10-5.30 [facility] Comment on above: Performed By: #### A 1C, TSH, ADIFF, FT3, ANEU, FERR, FE, MG, CMP, VIDH, CBC, GFR #### [place] [address] #### B12, FT4 #### [address] [address] WBC 7.9 10 3/mcL Normal 4.5-10.8 [facility] Comment on above: Performed By: #### A 1C, TSH, ADIFF, FT3, ANEU, FERR, FE, MG, CMP, VIDH, CBC, GFR #### [address] [address] #### B12, FT4 #### [address] [address] CMPon 01-16-2025 Albumin Level 3.6 G/dL Normal 3.4-4.8 [facility] Comment on above: Performed By: #### A 1C, TSH, ADIFF, FT3, ANEU, FERR, FE, MG, CMP, VIDH, CBC, GFR #### [address] [address] #### B12, FT4 #### [place] [address] Albumin/Globulin [Mass ratio] 1.0 {ratio} Low 1.1-2.5 [facility] Comment on above: Performed By: #### A 1C, TSH, ADIFF, FT3, ANEU, FERR, FE, MG, CMP, VIDH, CBC, GFR #### [address] [address] #### B12, FT4 #### [address] [address] ALP [Catalytic activity/Vol] 93 U/L Normal 40-135 [facility] Comment on above: Performed By: #### A 1C, TSH, ADIFF, FT3, ANEU, FERR, FE, MG, CMP, VIDH, CBC, GFR #### [address] [address] #### B12, FT4 #### [address] [address] ALT [Catalytic activity/Vol] 29 U/L Normal 14-59 [facility] Comment on above: Performed By: #### A 1C, TSH, ADIFF, FT3, ANEU, FERR, FE, MG, CMP, VIDH, CBC, GFR #### [place] [address] #### B12, FT4 #### [address] [address] AST [Catalytic activity/Vol] 29 U/L Normal 10-40 [facility] Comment on above: Performed By: #### A 1C, TSH, ADIFF, FT3, ANEU, FERR, FE, MG, CMP, VIDH, CBC, GFR #### [place] [address] #### B12, FT4 #### [place] [address] Bili Total 0.4 mg/dL Normal 0.2-1.0 [facility] Comment on above: Result Comment: Use of this assay is not recommended for patients undergoing treatment with eltrombopag due to the potential for falsely elevated results. Performed By: #### A 1C, TSH, ADIFF, FT3, ANEU, FERR, FE, MG, CMP, VIDH, CBC, GFR #### [place] [address] #### B12, FT4 #### [place] [address] BUN/Creatinine Ratio 17 ratio Normal 7-27 [facility] Comment on above: Performed By: #### A 1C, TSH, ADIFF, FT3, ANEU, FERR, FE, MG, CMP, VIDH, CBC, GFR #### [place] [address] #### B12, FT4 #### [place] [address] Calcium [Mass/Vol] 9.0 mg/dL Normal 8.4-10.2 [facility] Comment on above: Performed By: #### A 1C, TSH, ADIFF, FT3, ANEU, FERR, FE, MG, CMP, VIDH, CBC, GFR #### [place] [address] #### B12, FT4 #### [address] [address] Chloride [Moles/Vol] 104 mmol/L Normal 98-107 [facility] Comment on above: Performed By: #### A 1C, TSH, ADIFF, FT3, ANEU, FERR, FE, MG, CMP, VIDH, CBC, GFR #### [address] [address] #### B12, FT4 #### [address] [address] CO2 [Moles/Vol] 32 mmol/L High 23-31 [facility] Comment on above: Performed By: #### A 1C, TSH, ADIFF, FT3, ANEU, FERR, FE, MG, CMP, VIDH, CBC, GFR #### [address] [address] #### B12, FT4 #### [place] [address] Creatinine [Mass/Vol] 0.63 mg/dL Normal 0.55-1.02 [facility] Comment on above: Result Comment: Test ing performed on Siemens Dimension EXL analyzer using a modified kinetic Jeniffer technique. Performed By: #### A 1C, TSH, ADIFF, FT3, ANEU, FERR, FE, MG, CMP, VIDH, CBC, GFR #### [address] [address] #### B12, FT4 #### [place] [address] Electrolyte Balance 4.0 mEq/L Normal 4.0-15.0 [facility] Comment on above: Performed By: #### A 1C, TSH, ADIFF, FT3, ANEU, FERR, FE, MG, CMP, VIDH, CBC, GFR #### [address] [address] #### B12, FT4 #### [address] [address] Globulin 3.7 G/dL Normal 1.5-3.8 [facility] Comment on above: Performed By: #### A 1C, TSH, ADIFF, FT3, ANEU, FERR, FE, MG, CMP, VIDH, CBC, GFR #### [address] [address] #### B12, FT4 #### [address] [address] Glucose [Mass/Vol] 113 mg/dL High 83-110 [facility] Comment on above: Performed By: #### A 1C, TSH, ADIFF, FT3, ANEU, FERR, FE, MG, CMP, VIDH, CBC, GFR #### [address] [address] #### B12, FT4 #### [address] [address] Potassium [Moles/Vol] 3.9 mmol/L Normal 3.5-5.1 [facility] Comment on above: Performed By: #### A 1C, TSH, ADIFF, FT3, ANEU, FERR, FE, MG, CMP, VIDH, CBC, GFR #### [address] [address] #### B12, FT4 #### [address] [address] Sodium [Moles/Vol] 140 mmol/L Normal 136-145 [facility] Comment on above: Performed By: #### A 1C, TSH, ADIFF, FT3, ANEU, FERR, FE, MG, CMP, VIDH, CBC, GFR #### [address] [address] #### B12, FT4 #### [address] [address] Total Protein 7.3 G/dL Normal 6.4-8.2 [facility] Comment on above: Performed By: #### A 1C, TSH, ADIFF, FT3, ANEU, FERR, FE, MG, CMP, VIDH, CBC, GFR #### [address] [address] #### B12, FT4 #### [address] [address] Urea nitrogen [Mass/Vol] 11 mg/dL Normal 7-18 [facility] Comment on above: Performed By: #### A 1C, TSH, ADIFF, FT3, ANEU, FERR, FE, MG, CMP, VIDH, CBC, GFR #### [address] [address] #### B12, FT4 #### [place] [address] FEon 01-16-2025 Iron [Mass/Vol] 68 ug/dL Normal 50-170 [facility] Comment on above: Performed By: #### A 1C, TSH, ADIFF, FT3, ANEU, FERR, FE, MG, CMP, VIDH, CBC, GFR ####[place] [address]#### B12, FT4 ####[place] [address] Bhavani 01-16-2025 Ferritin [Mass/Vol] 93.0 ng/mL Normal 8.0-252.0 [facility] Comment on above: Performed By: #### A 1C, TSH, ADIFF, FT3, ANEU, FERR, FE, MG, CMP, VIDH, CBC, GFR #### [address] [address] #### B12, FT4 #### [place] [address] FT3on 01-16-2025 Free T3 [Mass/Vol] 1.76 pg/mL Low 2.30-4.00 [facility] Comment on above: Performed By: #### A 1C, TSH, ADIFF, FT3, ANEU, FERR, FE, MG, CMP, VIDH, CBC, GFR ####[address] [address]#### B12, FT4 ####[place] [address] MGon 01-16-2025 Magnesium [Mass/Vol] 1.8 mg/dL Normal 1.8-2.4 [facility] Comment on above: Performed By: #### A 1C, TSH, ADIFF, FT3, ANEU, FERR, FE, MG, CMP, VIDH, CBC, GFR #### [address] [address] #### B12, FT4 #### [place] [address] TSHon 01-16-2025 TSH Qn 1.16 m[IU]/L Normal 0.36-3.74 [facility] Comment on above: Performed By: #### A 1C, TSH, ADIFF, FT3, ANEU, FERR, FE, MG, CMP, VIDH, CBC, GFR #### [place] [address] #### B12, FT4 #### [place] [address] VIDHon 01-16-2025 Vit. D 25-Hydroxy 111.1 ng/mL Normal [facility] Comment on above: Result Comment: Inte rpretive Values Based on Total 25(OH) Vitamin D: Deficient <20 ng/mL Insufficient 20 - <30 ng/mL Sufficient 30-100 ng/mL Performed By: #### A 1C, TSH, ADIFF, FT3, ANEU, FERR, FE, MG, CMP, VIDH, CBC, GFR ####[place] [address]#### B12, FT4 ####[place] [address] SCRN MAMM (CAD)W/MAHENDRA BILVanessa n 09-24-2024 SCRN MAMM (CAD)W/MAHENDRA HAWK [facility] [address] [place] [id number] SCRN MAMM (CAD)W/MAHENDRA HAWK MR#: [id number] Acct: [id number] Name: TAMAR PRADO Rep #: [id number] : 1945 F 79 From: Lorne pollack MD PCP: Dr. Olu Perez DO Status: [facility] Study: SCRN MAMM (CAD)W/MAHENDRA BILAT Date of Exam: 09/06 07/30 Exam# [id number] Ordering Dr: Olu Perez DO :[id number] MAMMOGRAPHY - BILATERAL SCREENING REASON FOR EXAM: Female, 79 years old. Routine annual screening examination. PERTINENT HISTORY: Mother with breast cancer. TECHNIQUE: Digital bilateral breast mahendra (3D mammographic acquisition) in the CC and MLO projections. 2-D mediolateral oblique (MLO) and craniocaudad (CC) views of both breasts were obtained. CAD: Full Field Digital Mammography with Computer Added Detection was performed. COMPARISON: Comparison is made with prior outside examination September 05, 2023. FINDINGS: Breast Composition: The breasts are almost entirely fatty. There are no dominant masses or suspicious calcifications. No other significant abnormalities are identified. There has been no significant change since the prior study. BI/SCRN MAMM (CAD)W/MAHENDRA BILAT IMPRESSION: Stable bilateral screening mammogram. Yearly follow-up mammogram recommended. (A) ASSESSMENT CATEGORY: BIRADS Category 1: Negative. A letter regarding these results will be sent to the patient by the facility within 30 days. Approximately 10% of breast cancers are not detected by mammography. A normal mammogram should not delay biopsy of a clinically suspicious abnormality. [id number] Electronically Signed: Lorne Castellon MD at 11:13 EST , CC: Dr. Olu Perez DO Hotel Night Auditor: Signed [facility] CNOVon 08-27-2024 CNOV Office Visit (NRMDN) TAMAR PRADO ([id number]) 1945 F Date Time Provider Department 08/27/24 3:00 PM JEANNIE CARTER NRMDN During your visit today, we recorded the following information about you: Pulse Blood pressure Weight Height 83/minute 134/92 47.6 kg 1.524 m Jeannie Carter, GENERAL MANAGER [employer] ADMINISTRATOR 08/29/2024 10:28 AM Signed [facility] - FOLLOW UP EVALUATION Olu Perez DO, DO [address] [facility] [id number] Dear Olu Perez DO, DO: I had the pleasure of seeing Ms. Prado for follow-up today. As you know she is a 79 year old right-handed female with a history of PD since . Bilateral STN DBS Jones placed 03/2021 Subjective Previous Plan-04/28/2023 Visit: Continue with increased range at home if needed No other changes today. Follow up in 6 months for battery check. Interval History: She fell in March and broke a vertebrae and still having some residual pain from this. She is having more hallucinations now. She does not sleep well and is waking up with hallucinations that she does not have insight into. She gets agitated during confused moments. Movement Disorders Medications Schedule - as of the start of the visit: Medications AM PM azilect 1 mg 1 nuplazid 34 mg 1 Questionnaires: In addition, the following areas that may be affected by abnormal involuntary movements were evaluated: Daily activities Difficulties with eatin (none) Difficulties in dressing: Yes (mild) Difficulties with hygiene activities: Yes (mild) Difficulties with handwriting: Yes (mild) Difficulties with doing hobbies and other activities: Yes (severe) Difficulties turning in bed: 0 (none) Difficulties getting out of bed, car or chair: Yes (mild) Tremors/Gait/Balance Shaking or tremors: 0 (none) Walking and balance problems: Yes (moderate) Number of falls in the Last Month: 3 Gait freezin (none) Autonomic/Pain Lightheadeness on standing: Yes (mild) Urinary problems: Yes (slight) Constipation problems: 0 (none) Pain and other sensations: 0 (none) Speech/Swallowing Speech problems: Yes (mild) Droolin (none) Chewing and swallowing problems: Yes (moderate) Sleep/Fatigue Sleep problems: Yes (mild) Daytime sleepiness: Yes (mild) Fatigue: Yes (moderate) Mood/Behavior Depression: PHQ-9 Score: 13 usually representing moderate (10-14) depression. Anxiety: YUE-7 Total Score: 9 usually representing mild (5-9) anxiety. Finally, the following table shows the patient's overall global physical and mental health using the PROMIS scale: PROMIS-10 Flowsheet Row Office Visit from 08/27/2024 in Neurology PAT from 09/06/2023 in Pre Anesthesia Global Physical Health T Score 32.4 32.4 Global Mental Health T Score 31.3 31.3 0-10 Standard Pain Scale 4 4 *PROMIS-10 scoring scale: mean = 50, over 50 is above average, under 50 is below average ALLERGIES Allergen Reactions Ativan [Lorazepam] Mental Status Change Haldol [Haloperidol] Mental Status Change Reglan [Metoclopram* Unknown Amantadine Other: See Comments Constipation, dry mouth Artane Unknown Requip [Ropinirole] Other: See Comments nightmares Sinemet [Carbidopa-* Unknown Current Outpatient Medications Medication Sig ferrous sulfate (IRON ORAL) Take 65 mg by mouth. Pt takes 1 tab 3x a week. rasagiline (AZILECT) 1 mg tab take 1 tablet by mouth every day pimavanserin (NUPLAZID) 34 mg capsule Take 1 capsule by mouth daily at bedtime. pantoprazole DR (PROTONIX) 20 mg tablet Take 20 mg by mouth once daily. vitamin A/vitamin D3 (NATURAL VITAMIN D ORAL) Take 2,000 Units by mouth. Calcium Carbonate 650 mg calcium (1,625 mg) tablet Take 650 mg by mouth three times daily with meals. FLUoxetine (PROZAC) 40 mg capsule Take 40 mg by mouth once daily. Ibandronate 150 mg tablet Take 150 mg by mouth once every month. multivitamin with minerals (MULTIPLE VITAMINS 55 PLUS ORAL) once daily. levothyroxine (SYNTHROID) 50 mcg tablet Take 1 tablet by mouth once daily. atorvastatin (LIPITOR) 80 mg tablet Take 80 mg by mouth once daily. traZODone (DESYREL) 50 mg tablet Take 0.5 tablets by mouth daily at bedtime. cephALEXin (KEFLEX) 500 mg capsule Take 1 capsule by mouth four times daily. No current facility-administered medications for this visit. Objective Vital Signs: BP 134/92 (BP Site: Left Arm, BP Position: Sitting, BP Cuff Size: Regular Adult) Pulse 83 Ht 152.4 cm (5') Wt 47.6 kg (105 lb) SpO2 93% BMI 20.51 kg/m? Orthostatic Vitals: None for this encounter No LMP recorded. Patient has had a hysterectomy. Body mass index is 20.51 kg/m?. General Physical Examination: She is accompanied by her spouse. General: Awake, alert, interactive, no acute distress, good nutritional status, normal development, well-kept Movement Disorders Scales Performed: [id number] Motor subscale (more content not included)... Normal [facility] .Auto Diffon 07-05-2024 Basophil, Absolute 0.0 10 3/mcL Normal 0.0-0.3 Formerly [facility] ([place]) Comment on above: Performed By: #### A EDSON STEVENS, CBC, FERR, FE ####[address] [address] Basophils/100 WBC (Bld) 0.6 % Normal 0.0-2.5 Formerly [facility], [facility] ([place]) Comment on above: Performed By: #### A EDSON STEVENS, CBC, JASMYNE, FE ####[address] [address] Eosinophil, Absolute 0.1 10 3/mcL Normal 0.0-0.7 [facility] ([place]) Comment on above: Performed By: #### A EDSON STEVENS, CBC, JASMYNE, FE ####[address] [address] Eosinophils/100 WBC (Bld) 0.8 % Normal 0.0-6.0 Formerly [facility], [facility] ([place]) Comment on above: Performed By: #### A EDSON STEVENS, CBC, FERR, FE ####[address] [address] Lymphocyte, Absolute 1.6 10 3/mcL Normal 0.9-4.3 [facility] ([place]) Comment on above: Performed By: #### A RODNEY, ADIFF, CBC, FERR, FE ####[address] [address] Lymphocytes/100 WBC (Bld) 20.4 % Normal 20.0-40.0 [facility] ([place]) Comment on above: Performed By: #### A RODNEY, ADIFF, CBC, FERR, FE ####[address] [address] Monocyte, Absolute 0.7 10 3/mcL Normal 0.1-1.4 [facility] ([place]) Comment on above: Performed By: #### A RODNEY, ADIFF, CBC, FERR, FE ####[address] [address] Monocytes/100 WBC (Bld) 8.5 % Normal 2.0-13.0 [facility] ([place]) Comment on above: Performed By: #### A RODNEY, ADIFF, CBC, FERR, FE ####[address] [address] Neutrophils/100 WBC (Bld) 69.7 % Normal 50.0-75.0 [facility] ([place]) Comment on above: Performed By: #### A RODNEY, ADIFF, CBC, FERR, FE ####[address] [address] .NEUABSon 07-05-2024 Neutrophil, Absolute 5.4 10 3/mcL Normal 2.3-8.1 [facility] ([place]) Comment on above: Performed By: #### A RODNEY, ADIFF, CBC, FERR, FE ####[place] [address] CBCon 07-05-2024 Erythrocyte distribution width (RBC) [Ratio] 16.1 % High 11.5-15.5 [facility] ([place]) Comment on above: Performed By: #### A RODNEY, ADIFF, CBC, FERR, FE ####[place] [address] Hematocrit (Bld) [Volume fraction] 42.1 % Normal 34.0-46.0 [facility] ([place]) Comment on above: Performed By: #### A RODNEY, ADIFF, CBC, FERR, FE ####[place] [address] Hgb 13.8 G/dL Normal 12.0-16.0 [facility] ([place]) Comment on above: Performed By: #### A RODNEY, ADIFF, CBC, FERR, FE ####[place] [address] MCH (RBC) [Entitic mass] 30.2 pg Normal 27.0-33.0 [facility] ([place]) Comment on above: Performed By: #### A RODNEY, ADIFF, CBC, FERR, FE ####[place] [address] MCHC 32.9 G/dL Normal 32.0-36.0 [facility] ([place]) Comment on above: Performed By: #### A RODNEY, ADIFF, CBC, FERR, FE ####[place] [address] MCV (RBC) [Entitic vol] 91.8 fL Normal 80.0-99.0 [facility] ([place]) Comment on above: Performed By: #### A RODNEY, ADIFF, CBC, FERR, FE ####[place] [address] Platelet 322 10 3/mcL Normal 150-450 [facility] ([place]) Comment on above: Performed By: #### A RODNEY, ADIFF, CBC, FERR, FE ####[place] [address] Platelet mean volume (Bld) [Entitic vol] 7.8 fL Normal 6.6-10.5 [facility] ([place]) Comment on above: Performed By: #### A RODNEY, ADIFF, CBC, FERR, FE ####[place] [address] RBC 4.58 10 6/mcL Normal 4.10-5.30 [facility] ([place]) Comment on above: Performed By: #### A RODNEY, ADIFF, CBC, FERR, FE ####[place] [address] WBC 7.8 10 3/mcL Normal 4.5-10.8 [facility] ([place]) Comment on above: Performed By: #### A RODNEY, ADIFF, CBC, FERR, FE ####[place] [address] FEon 07-05-2024 Iron [Mass/Vol] 77 ug/dL Normal 50-170 [facility] ([place]) Comment on above: Performed By: #### A RODNEY, ADIFF, CBC, FERR, FE ####[place] [address] Bhavani 07-05-2024 Ferritin [Mass/Vol] 36.5 ng/mL Normal 8.0-252.0 [facility] ([place]) Comment on above: Performed By: #### A RODNEY, ADIFF, CBC, FERR, FE ####[place] [address] .Auto Diffon 02-06-2024 Basophil, Absolute 0.0 10 3/mcL Normal 0.0-0.3 [facility] ([place]) Comment on above: Performed By: #### G FR, ADIFF, CBC, A1C, CMP, TSH, LIPID, FT4, ANEU, HCV1 #### [place] [address] Basophils/100 WBC (Bld) 0.5 % Normal 0.0-2.5 [facility] ([place]) Comment on above: Performed By: #### G FR, ADIFF, CBC, A1C, CMP, TSH, LIPID, FT4, ANEU, HCV1 #### [place] [address] Eosinophil, Absolute 0.1 10 3/mcL Normal 0.0-0.7 [facility] ([place]) Comment on above: Performed By: #### G FR, ADIFF, CBC, A1C, CMP, TSH, LIPID, FT4, ANEU, HCV1 #### [address] [address] Eosinophils/100 WBC (Bld) 1.0 % Normal 0.0-6.0 [facility] ([place]) Comment on above: Performed By: #### G FR, ADIFF, CBC, A1C, CMP, TSH, LIPID, FT4, ANEU, HCV1 #### [address] [address] Lymphocyte, Absolute 2.0 10 3/mcL Normal 0.9-4.3 [facility] ([place]) Comment on above: Performed By: #### G FR, ADIFF, CBC, A1C, CMP, TSH, LIPID, FT4, ANEU, HCV1 #### [address] [address] Lymphocytes/100 WBC (Bld) 29.9 % Normal 20.0-40.0 [facility] ([place]) Comment on above: Performed By: #### G FR, ADIFF, CBC, A1C, CMP, TSH, LIPID, FT4, ANEU, HCV1 #### [address] [address] Monocyte, Absolute 0.6 10 3/mcL Normal 0.1-1.4 [facility] ([place]) Comment on above: Performed By: #### G FR, ADIFF, CBC, A1C, CMP, TSH, LIPID, FT4, ANEU, HCV1 #### [address] [address] Monocytes/100 WBC (Bld) 8.8 % Normal 2.0-13.0 [facility] ([place]) Comment on above: Performed By: #### G FR, ADIFF, CBC, A1C, CMP, TSH, LIPID, FT4, ANEU, HCV1 #### [address] [address] Neutrophils/100 WBC (Bld) 59.8 % Normal 50.0-75.0 [facility] ([place]) Comment on above: Performed By: #### G FR, ADIFF, CBC, A1C, CMP, TSH, LIPID, FT4, ANEU, HCV1 #### [address] [address] .GFRon 02-06-2024 GFR >60 Normal [facility] ([place]) Comment on above: Result Comment: GFR Population mean for , Non- Americans Ages 20-29 = 116 mL/min/1.73 sq.m. Ages 30-39 = 107 mL/min/1.73 sq.m. Ages 40-49 = 99 mL/min/1.73 sq.m. Ages 50-59 = 93 mL/min/1.73 sq.m. Ages 60-69 = 85 mL/min/1.73 sq.m. Ages 70+ = 75 mL/min/1.73 sq.m. Chronic Kidney Disease: Less than 60 mL/min/1.73 square meters End Stage Renal Disease: Less than 15 mL/min/1.73 square meters Performed By: #### G FR, ADIFF, CBC, A1C, CMP, TSH, LIPID, FT4, ANEU, HCV1 ####[address] [address] GFR Non- >60 Normal [facility] ([place]) Comment on above: Result Comment: GFR Population mean for , Non- Americans Ages 20-29 = 116 mL/min/1.73 sq.m. Ages 30-39 = 107 mL/min/1.73 sq.m. Ages 40-49 = 99 mL/min/1.73 sq.m. Ages 50-59 = 93 mL/min/1.73 sq.m. Ages 60-69 = 85 mL/min/1.73 sq.m. Ages 70+ = 75 mL/min/1.73 sq.m. Chronic Kidney Disease: Less than 60 mL/min/1.73 square meters End Stage Renal Disease: Less than 15 mL/min/1.73 square meters Performed By: #### G FR, ADIFF, CBC, A1C, CMP, TSH, LIPID, FT4, ANEU, HCV1 ####[address] [address] .NEUABSon 02-06-2024 Neutrophil, Absolute 3.9 10 3/mcL Normal 2.3-8.1 [facility] ([place]) Comment on above: Performed By: #### G FR, ADIFF, CBC, A1C, CMP, TSH, LIPID, FT4, ANEU, HCV1 #### [place] [address] A1Con 02-06-2024 HbA1c (Bld) [Mass fraction] 7.3 % High 4.0-6.0 [facility] ([place]) Comment on above: Performed By: #### G FR, ADIFF, CBC, A1C, CMP, TSH, LIPID, FT4, ANEU, HCV1 ####[place] [address] CBCon 02-06-2024 Erythrocyte distribution width (RBC) [Ratio] 16.1 % High 11.5-15.5 [facility] ([place]) Comment on above: Performed By: #### G FR, ADIFF, CBC, A1C, CMP, TSH, LIPID, FT4, ANEU, HCV1 #### [place] [address] Hematocrit (Bld) [Volume fraction] 38.3 % Normal 34.0-46.0 [facility] ([place]) Comment on above: Performed By: #### G FR, ADIFF, CBC, A1C, CMP, TSH, LIPID, FT4, ANEU, HCV1 #### [place] [address] Hgb 12.8 G/dL Normal 12.0-16.0 [facility] ([place]) Comment on above: Performed By: #### G FR, ADIFF, CBC, A1C, CMP, TSH, LIPID, FT4, ANEU, HCV1 #### [place] [address] MCH (RBC) [Entitic mass] 28.5 pg Normal 27.0-33.0 [facility] ([place]) Comment on above: Performed By: #### G FR, ADIFF, CBC, A1C, CMP, TSH, LIPID, FT4, ANEU, HCV1 #### [place] [address] MCHC 33.3 G/dL Normal 32.0-36.0 [facility] ([place]) Comment on above: Performed By: #### G FR, ADIFF, CBC, A1C, CMP, TSH, LIPID, FT4, ANEU, HCV1 #### [place] [address] MCV (RBC) [Entitic vol] 85.6 fL Normal 80.0-99.0 [facility] ([place]) Comment on above: Performed By: #### G FR, ADIFF, CBC, A1C, CMP, TSH, LIPID, FT4, ANEU, HCV1 #### [place] [address] Platelet 413 10 3/mcL Normal 150-450 [facility] ([place]) Comment on above: Performed By: #### G FR, ADIFF, CBC, A1C, CMP, TSH, LIPID, FT4, ANEU, HCV1 #### [place] [address] Platelet mean volume (Bld) [Entitic vol] 7.4 fL Normal 6.6-10.5 [facility] ([place]) Comment on above: Performed By: #### G FR, ADIFF, CBC, A1C, CMP, TSH, LIPID, FT4, ANEU, HCV1 #### [place] [address] RBC 4.47 10 6/mcL Normal 4.10-5.30 [facility] ([place]) Comment on above: Performed By: #### G FR, ADIFF, CBC, A1C, CMP, TSH, LIPID, FT4, ANEU, HCV1 #### [place] [address] WBC 6.6 10 3/mcL Normal 4.5-10.8 [facility] ([place]) Comment on above: Performed By: #### G FR, ADIFF, CBC, A1C, CMP, TSH, LIPID, FT4, ANEU, HCV1 #### [place] [id number] CMPon 02-06-2024 Albumin Level 3.8 G/dL Normal 3.2-4.8 [facility] ([place]) Comment on above: Performed By: #### G FR, ADIFF, CBC, A1C, CMP, TSH, LIPID, FT4, ANEU, HCV1 ####[address] [place], [place] [address] Albumin/Globulin [Mass ratio] 1.2 {ratio} Normal 0.9-1.6 [facility] ([place]) Comment on above: Performed By: #### G FR, ADIFF, CBC, A1C, CMP, TSH, LIPID, FT4, ANEU, HCV1 ####[address] [address] ALP [Catalytic activity/Vol] 79 U/L Normal 38-126 [facility] ([place]) Comment on above: Performed By: #### G FR, ADIFF, CBC, A1C, CMP, TSH, LIPID, FT4, ANEU, HCV1 ####[place] [address] ALT [Catalytic activity/Vol] 19 U/L Normal 10-49 [facility] ([place]) Comment on above: Performed By: #### G FR, ADIFF, CBC, A1C, CMP, TSH, LIPID, FT4, ANEU, HCV1 ####[place] [address] AST [Catalytic activity/Vol] 27 U/L Normal 8-34 [facility] ([place]) Comment on above: Performed By: #### G FR, ADIFF, CBC, A1C, CMP, TSH, LIPID, FT4, ANEU, HCV1 ####[place] [address] Bili Total 0.60 mg/dL Normal 0.20-1.20 [facility] ([place]) Comment on above: Result Comment: Use of this assay is not recommended for patients undergoing treatment with eltrombopag due to the potential for falsely elevated results. Performed By: #### G FR, ADIFF, CBC, A1C, CMP, TSH, LIPID, FT4, ANEU, HCV1 ####[place] [address] BUN/Creatinine Ratio 20.3 ratio Normal 10.0-22.0 [facility] ([place]) Comment on above: Performed By: #### G FR, ADIFF, CBC, A1C, CMP, TSH, LIPID, FT4, ANEU, HCV1 ####[place] [address] Calcium [Mass/Vol] 9.0 mg/dL Normal 8.7-10.4 [facility] ([place]) Comment on above: Performed By: #### G FR, ADIFF, CBC, A1C, CMP, TSH, LIPID, FT4, ANEU, HCV1 ####[address] [address] Chloride [Moles/Vol] 103 mmol/L Normal 98-110 [facility] ([place]) Comment on above: Performed By: #### G FR, ADIFF, CBC, A1C, CMP, TSH, LIPID, FT4, ANEU, HCV1 ####[address] [address] CO2 [Moles/Vol] 26 mmol/L Normal 22-32 [facility] ([place]) Comment on above: Performed By: #### G FR, ADIFF, CBC, A1C, CMP, TSH, LIPID, FT4, ANEU, HCV1 ####[place] [address] Creatinine [Mass/Vol] 0.59 mg/dL Normal 0.50-1.20 [facility] ([place]) Comment on above: Performed By: #### G FR, ADIFF, CBC, A1C, CMP, TSH, LIPID, FT4, ANEU, HCV1 ####[place] [address] Electrolyte Balance 12.0 mEq/L Normal 4.0-15.0 [facility] ([place]) Comment on above: Performed By: #### G FR, ADIFF, CBC, A1C, CMP, TSH, LIPID, FT4, ANEU, HCV1 ####[address] [address] Globulin 3.3 G/dL Normal 1.5-3.8 [facility] ([place]) Comment on above: Performed By: #### G FR, ADIFF, CBC, A1C, CMP, TSH, LIPID, FT4, ANEU, HCV1 ####[place] [address] Glucose [Mass/Vol] 116 mg/dL High 82-115 [facility] ([place]) Comment on above: Performed By: #### G FR, ADIFF, CBC, A1C, CMP, TSH, LIPID, FT4, ANEU, HCV1 ####[address] [address] Potassium [Moles/Vol] 4.2 mmol/L Normal 3.5-5.0 [facility] ([place]) Comment on above: Performed By: #### G FR, ADIFF, CBC, A1C, CMP, TSH, LIPID, FT4, ANEU, HCV1 ####[address] [address] Sodium [Moles/Vol] 141 mmol/L Normal 136-145 [facility] ([place]) Comment on above: Performed By: #### G FR, ADIFF, CBC, A1C, CMP, TSH, LIPID, FT4, ANEU, HCV1 ####[place] [address] Total Protein 7.1 G/dL Normal 5.7-8.2 [facility] ([place]) Comment on above: Result Comment: No te - New Reference Range in effect 20 Performed By: #### G FR, ADIFF, CBC, A1C, CMP, TSH, LIPID, FT4, ANEU, HCV1 ####[place] [address] Urea nitrogen [Mass/Vol] 12.0 mg/dL Normal 8.0-22.0 [facility] ([place]) Comment on above: Performed By: #### G FR, ADIFF, CBC, A1C, CMP, TSH, LIPID, FT4, ANEU, HCV1 ####[place] [address] FT4on 02-06-2024 Free T4 [Mass/Vol] 1.11 ng/dL Normal 0.89-1.76 [facility] ([place]) Comment on above: Result Comment: No te - New Reference Range in effect 20 Performed By: #### G FR, ADIFF, CBC, A1C, CMP, TSH, LIPID, FT4, ANEU, HCV1 #### [place] [address] HCVon 02-06-2024 Hep C Ab Non-Reactive Normal Non-Reacti ve [facility] ([place]) Comment on above: Performed By: #### G FR, ADIFF, CBC, A1C, CMP, TSH, LIPID, FT4, ANEU, HCV1 ####[address] [address] Hep C Ab Int Normal [facility] ([place]) Comment on above: Result Comment: Nonr eactive: Samples with a value < 0.80 are considered nonreactive (negative) for antibodies to HCV. A negative test result does not exclude the possibility of exposure to or infection with HCV. HCV antibodies may be undetectable in some stages of the infection and in some clinical conditions. See Interp Performed By: #### G FR, ADIFF, CBC, A1C, CMP, TSH, LIPID, FT4, ANEU, HCV1 ####[address] [address] LIPIDon 02-06-2024 Cholesterol [Mass/Vol] 208 mg/dL High 50-199 [facility] ([place]) Comment on above: Result Comment: Chol esterol Reference Interval: Less than 200 Desirable 200-239 Borderline high risk 240 and above High risk Performed By: #### G FR, ADIFF, CBC, A1C, CMP, TSH, LIPID, FT4, ANEU, HCV1 ####[address] [address] Cholesterol in HDL [Mass/Vol] 48 mg/dL Normal 40-59 [facility] ([place]) Comment on above: Performed By: #### G FR, ADIFF, CBC, A1C, CMP, TSH, LIPID, FT4, ANEU, HCV1 ####[address] [address] Cholesterol in LDL [Mass/Vol] 130 mg/dL High 0-129 [facility] ([place]) Comment on above: Performed By: #### G FR, ADIFF, CBC, A1C, CMP, TSH, LIPID, FT4, ANEU, HCV1 ####[address] [address] Triglyceride [Mass/Vol] 152 mg/dL High 3-149 [facility] ([place]) Comment on above: Performed By: #### G FR, ADIFF, CBC, A1C, CMP, TSH, LIPID, FT4, ANEU, HCV1 ####[facility] [place] [address] MALBRon 02-06-2024 U Creatinine 85.0 mg/dL Normal [facility] ([place]) Comment on above: Performed By: #### M ALBR #### [place] [id number] [address] [place] [address] U Microalb <300 Normal [facility] ([place]) Comment on above: Performed By: #### M ALBR #### [place] [id number] [address] [place] [address] U Ratio Alb/Cre Unable to Calculate Normal 0.0-24.9 [facility] ([place]) Comment on above: Result Comment: Unab le to calculate this test result accurately. Results used to calculate this test are outside the reportable range. Performed By: #### M ALBR #### [address] [address] TSHon 02-06-2024 TSH 1.472 mIU/mL Normal 0.550-4.78 0 [facility] ([place]) Comment on above: Result Comment: No te - New Reference Range in effect 20 Performed By: #### G FR, ADIFF, CBC, A1C, CMP, TSH, LIPID, FT4, ANEU, HCV1 #### [address] [address] Final Surgical Pathology Rep [facility] 01-31-2024 Final Surgical Pathology Report . Pathology Reports Accession: Collected Date/Time: Received Date/Time: Pathologist: [id number] 08/24/2023 08:05 EDT 08/24/2023 10:11 EDT ENE SALEH MD Final Surgical Pathology Report CORRECTED REPORT: REPORT CORRECTED TO ADD ASCENT FROZEN CASE NUMBER. NO CHANGES MADE TO DIAGNOSIS. DIAGNOSIS: A. SKIN, LEFT POSTERIOR EAR, SUPERIOR: - NEGATIVE FOR MALIGNANCY B. SKIN, LEFT POSTERIOR EAR, MEDIAL: - NEGATIVE FOR MALIGNANCY C. SKIN, LEFT POSTERIOR EAR, DEEP: - NEGATIVE FOR MALIGNANCY D. SKIN, LEFT POSTERIOR EAR, LATERAL: - NEGATIVE FOR MALIGNANCY E. SKIN, LEFT POSTAURICULAR, EXCISION: - MULTIFOCAL BASAL CELL CARCINOMA, NODULAR TYPE - ALL SURGICAL RESECTION MARGINS: FREE F. LATERAL MASTOID TISSUE, LEFT: - FIBRO ADIPOSE TISSUE AND SKELETAL MUSCLE, NEGATIVE FOR MALIGNANCY COMMENT: [facility] [id number] CLINICAL INFORMATION: BASAL CELL CARCINOMA SPECIMEN: A FS-LEFT POSTERIOR EAR - SUPERIOR B FS-LEFT POSTERIOR EAR - MEDIAL C FS-LEFT POSTERIOR EAR - DEEP D FS-LEFT POSTERIOR EAR - LATERAL E LEFT POST AURICULAR BASAL CELL CARCINOMA F LATERAL MASTOID TISSUE - LEFT INTRAOPERATIVE CONSULTATION: Intraoperative frozen section performed at [facility], [address] [address]. A FS DX - NO MALIGNANCY SEEN ON FROZEN SECTION. B FS DX - NO MALIGNANCY SEEN ON FROZEN SECTION. C FS DX - NO MALIGNANCY SEEN ON FROZEN SECTION. D FS DX - NO MALIGNANCY SEEN ON FROZEN SECTION. dictated by Shiv Washington M.D. GROSS DESCRIPTION: A. Received fresh for frozen section, labeled with the patients name, Case # [id number], and left posterior ear -superior is a uninked fragment of skin measuring 0.6 x 0.4 by less than 0.1 cm. TS -1, AFS1-frozen section tissue Pathology Reports Accession: Collected Date/Time: Received Date/Time: Pathologist: [id number] 08/24/2023 08:05 EDT 08/24/2023 10:11 EDT ENE SALEH MD GROSS DESCRIPTION: B. Received fresh for frozen section, labeled with the patients name, Case # [id number], and left posterior ear medial is a black inked fragment of skin measuring 0.5 x 0.2 by less than 0.1 cm. TS -1, BFS1-frozen section tissue. C. Received fresh for frozen section, labeled with the patients name, Case # [id number], and left posterior ear -deep is a green inked fragment of skin measuring 0.6 x 0.5 x 0.2 cm. TS -1, CFS1 -frozen section tissue D. Received fresh for frozen section, labeled with the patients name, Case # [id number], and left posterior ear -lateral is a un-inked fragment of skin measuring 0.5 x 0.3 x 0.1 cm. TS -1, DFS 1 -frozen section tissue E. Received in formalin labeled left posterior auricular, blue stitch medial white stitch superior is a oriented skin excision measuring 1.6 x 1.1 and excised to a depth of 1 cm. The medial half is inked blue, the lateral half is inked black. Skin surface is grossly unremarkable TS -2, E1 -superior half, E2-inferior half F. Received in formalin labeled lateral mastoid tissue -left is a yellow-holliday hemorrhagic portion of unoriented soft tissue measuring 2 x 1.7 x 0.6 cm. One half of the tissue appears red, hemorrhagic and membranous and the opposite half is yellow -gupta with a roughened appearance. TS -2 Dictated by OLU ROA MICROSCOPIC DESCRIPTION: The microscopic examination is performed, except in the case of Gross Only. Electronically Signed by Pathology Report verified by [facility] ENE SALEH Sign out Date: 01/31/2024 16:26 Performing Lab: [facility], [address] [place] [address] Pathology Dept Disclaimer If ancillary studies were utilized, the following Laboratory Developed Test (LDT) disclaimer will apply: Under CLIA requirements, [facility] is qualified to perform high complexity testing. For all ancillary stains, positive and negative controls stain appropriately. Performance characteristics of immunohistochemical and chromogenic in-situ hybridization tests have been determined by [facility]. These tests are used for clinical purposes, They should not be regarded as investigational or for research. Normal [facility] ([place] .Auto Diffon 09-25-2023 Basophil, Absolute 0.0 10 3/mcL Normal 0.0-0.3 [facility] ([place]) Comment on above: Performed By: #### C BC, ADIFF, MG, FERR, B12, VIDH, GFR, FE, CMP, ANEU ####[address] [address] Basophils/100 WBC (Bld) 0.5 % Normal 0.0-2.5 [facility] ([place]) Comment on above: Performed By: #### C BC, ADIFF, MG, FERR, B12, VIDH, GFR, FE, CMP, ANEU ####[address] [address] Eosinophil, Absolute 0.1 10 3/mcL Normal 0.0-0.7 [facility] ([place]) Comment on above: Performed By: #### C BC, ADIFF, MG, FERR, B12, VIDH, GFR, FE, CMP, ANEU ####[address] [address] Eosinophils/100 WBC (Bld) 0.9 % Normal 0.0-6.0 [facility] ([place]) Comment on above: Performed By: #### C BC, ADIFF, MG, FERR, B12, VIDH, GFR, FE, CMP, ANEU ####[address] [address] Lymphocyte, Absolute 2.2 10 3/mcL Normal 0.9-4.3 [facility] ([place]) Comment on above: Performed By: #### C BC, ADIFF, MG, FERR, B12, VIDH, GFR, FE, CMP, ANEU ####[address] [address] Lymphocytes/100 WBC (Bld) 29.8 % Normal 20.0-40.0 [facility] ([place]) Comment on above: Performed By: #### C BC, ADIFF, MG, FERR, B12, VIDH, GFR, FE, CMP, ANEU ####[address] [address] Monocyte, Absolute 0.7 10 3/mcL Normal 0.1-1.4 [facility] ([place]) Comment on above: Performed By: #### C BC, ADIFF, MG, FERR, B12, VIDH, GFR, FE, CMP, ANEU ####[address] [address] Monocytes/100 WBC (Bld) 10.0 % Normal 2.0-13.0 [facility] ([place]) Comment on above: Performed By: #### C BC, ADIFF, MG, FERR, B12, VIDH, GFR, FE, CMP, ANEU ####[address] [address] Neutrophils/100 WBC (Bld) 58.8 % Normal 50.0-75.0 [facility] ([place] Comment on above: Performed By: #### C BC, ADIFF, MG, FERR, B12, VIDH, GFR, FE, CMP, ANEU ####[address] [address] .GFRon 09-25-2023 GFR Non- >60 Normal [facility] ([place]) Comment on above: Result Comment: GFR Population mean for , Non- Americans Ages 20-29 = 116 mL/min/1.73 sq.m. Ages 30-39 = 107 mL/min/1.73 sq.m. Ages 40-49 = 99 mL/min/1.73 sq.m. Ages 50-59 = 93 mL/min/1.73 sq.m. Ages 60-69 = 85 mL/min/1.73 sq.m. Ages 70+ = 75 mL/min/1.73 sq.m. Chronic Kidney Disease: Less than 60 mL/min/1.73 square meters End Stage Renal Disease: Less than 15 mL/min/1.73 square meters Performed By: #### C BC, ADIFF, MG, FERR, B12, VIDH, GFR, FE, CMP, ANEU ####[place] [address] GFR >60 Normal [facility] ([place]) Comment on above: Result Comment: GFR Population mean for , Non- Americans Ages 20-29 = 116 mL/min/1.73 sq.m. Ages 30-39 = 107 mL/min/1.73 sq.m. Ages 40-49 = 99 mL/min/1.73 sq.m. Ages 50-59 = 93 mL/min/1.73 sq.m. Ages 60-69 = 85 mL/min/1.73 sq.m. Ages 70+ = 75 mL/min/1.73 sq.m. Chronic Kidney Disease: Less than 60 mL/min/1.73 square meters End Stage Renal Disease: Less than 15 mL/min/1.73 square meters Performed By: #### C BC, ADIFF, MG, FERR, B12, VIDH, GFR, FE, CMP, ANEU ####[address] [address] .NEUABSon 09-25-2023 Neutrophil, Absolute 4.4 10 3/mcL Normal 2.3-8.1 [facility] ([place]) Comment on above: Performed By: #### C BC, ADIFF, MG, FERR, B12, VIDH, GFR, FE, CMP, ANEU ####[place] [address] B12on 09-25-2023 Cobalamin (Vitamin B12) [Mass/Vol] 443 pg/mL Normal 211-911 [facility] ([place]) Comment on above: Performed By: #### C BC, ADIFF, MG, FERR, B12, VIDH, GFR, FE, CMP, ANEU ####[place] [address] CBCon 09-25-2023 Erythrocyte distribution width (RBC) [Ratio] 15.3 % Normal 11.5-15.5 [facility] ([place] Comment on above: Performed By: #### C BC, ADIFF, MG, FERR, B12, VIDH, GFR, FE, CMP, ANEU ####[place] [address] Hematocrit (Bld) [Volume fraction] 42.1 % Normal 34.0-46.0 [facility] ([place] Comment on above: Performed By: #### C BC, ADIFF, MG, FERR, B12, VIDH, GFR, FE, CMP, ANEU ####[place] [address] Hgb 13.9 G/dL Normal 12.0-16.0 [facility] ([place] Comment on above: Performed By: #### C BC, ADIFF, MG, FERR, B12, VIDH, GFR, FE, CMP, ANEU ####[place] [address] MCH (RBC) [Entitic mass] 29.5 pg Normal 27.0-33.0 [facility] ([place] Comment on above: Performed By: #### C BC, ADIFF, MG, FERR, B12, VIDH, GFR, FE, CMP, ANEU ####[place] [address] MCHC 33.0 G/dL Normal 32.0-36.0 [facility] ([place] Comment on above: Performed By: #### C BC, ADIFF, MG, FERR, B12, VIDH, GFR, FE, CMP, ANEU ####[place] [address] MCV (RBC) [Entitic vol] 89.4 fL Normal 80.0-99.0 [facility] ([place] Comment on above: Performed By: #### C BC, ADIFF, MG, FERR, B12, VIDH, GFR, FE, CMP, ANEU ####[place] [address] Platelet 426 10 3/mcL Normal 150-450 [facility] ([place] Comment on above: Performed By: #### C BC, ADIFF, MG, FERR, B12, VIDH, GFR, FE, CMP, ANEU ####[place] [address] Platelet mean volume (Bld) [Entitic vol] 8.1 fL Normal 6.6-10.5 [facility] ([place] Comment on above: Performed By: #### C BC, ADIFF, MG, FERR, B12, VIDH, GFR, FE, CMP, ANEU ####[place] [address] RBC 4.70 10 6/mcL Normal 4.10-5.30 [facility] ([place] Comment on above: Performed By: #### C BC, ADIFF, MG, FERR, B12, VIDH, GFR, FE, CMP, ANEU ####[place] [address] WBC 7.5 10 3/mcL Normal 4.5-10.8 [facility] ([place] Comment on above: Performed By: #### C BC, ADIFF, MG, FERR, B12, VIDH, GFR, FE, CMP, ANEU ####[place] [address] CMPon 09-25-2023 Albumin Level 3.6 G/dL Normal 3.2-4.8 [facility] ([place] Comment on above: Performed By: #### C BC, ADIFF, MG, FERR, B12, VIDH, GFR, FE, CMP, ANEU ####[place] [address] Albumin/Globulin [Mass ratio] 1.0 {ratio} Normal 0.9-1.6 [facility] ([place] Comment on above: Performed By: #### C BC, ADIFF, MG, FERR, B12, VIDH, GFR, FE, CMP, ANEU ####[place] [address] ALP [Catalytic activity/Vol] 85 U/L Normal 38-126 [facility] ([place] Comment on above: Performed By: #### C BC, ADIFF, MG, FERR, B12, VIDH, GFR, FE, CMP, ANEU ####[place] [address] ALT [Catalytic activity/Vol] 16 U/L Normal 10-49 [facility] ([place] Comment on above: Performed By: #### C BC, ADIFF, MG, FERR, B12, VIDH, GFR, FE, CMP, ANEU ####[place] [address] AST [Catalytic activity/Vol] 26 U/L Normal 8-34 [facility] ([place] Comment on above: Performed By: #### C BC, ADIFF, MG, FERR, B12, VIDH, GFR, FE, CMP, ANEU ####[place] [address] Bili Total 0.50 mg/dL Normal 0.20-1.20 [facility] ([place] Comment on above: Result Comment: Use of this assay is not recommended for patients undergoing treatment with eltrombopag due to the potential for falsely elevated results. Performed By: #### C BC, ADIFF, MG, FERR, B12, VIDH, GFR, FE, CMP, ANEU ####[place] [address] BUN/Creatinine Ratio 19.4 ratio Normal 10.0-22.0 [facility] ([place]) Comment on above: Performed By: #### C BC, ADIFF, MG, FERR, B12, VIDH, GFR, FE, CMP, ANEU ####[place] [address] Calcium [Mass/Vol] 9.3 mg/dL Normal 8.7-10.4 [facility] ([place]) Comment on above: Performed By: #### C BC, ADIFF, MG, FERR, B12, VIDH, GFR, FE, CMP, ANEU ####[place] [address] Chloride [Moles/Vol] 102 mmol/L Normal 98-110 [facility] ([place]) Comment on above: Performed By: #### C BC, ADIFF, MG, FERR, B12, VIDH, GFR, FE, CMP, ANEU ####[place] [address] CO2 [Moles/Vol] 29 mmol/L Normal 22-32 [facility] ([place] Comment on above: Performed By: #### C BC, ADIFF, MG, FERR, B12, VIDH, GFR, FE, CMP, ANEU ####[place] [address] Creatinine [Mass/Vol] 0.62 mg/dL Normal 0.50-1.20 [facility] ([place] Comment on above: Performed By: #### C BC, ADIFF, MG, FERR, B12, VIDH, GFR, FE, CMP, ANEU ####[place] [address] Electrolyte Balance 9.0 mEq/L Normal 4.0-15.0 [facility] ([place]) Comment on above: Performed By: #### C BC, ADIFF, MG, FERR, B12, VIDH, GFR, FE, CMP, ANEU ####[place] [address] Globulin 3.6 G/dL Normal 1.5-3.8 [facility] ([place] Comment on above: Performed By: #### C BC, ADIFF, MG, FERR, B12, VIDH, GFR, FE, CMP, ANEU ####[place] [address] Glucose [Mass/Vol] 161 mg/dL High 82-115 [facility] ([place]) Comment on above: Performed By: #### C BC, ADIFF, MG, FERR, B12, VIDH, GFR, FE, CMP, ANEU ####[address] [address] Potassium [Moles/Vol] 3.9 mmol/L Normal 3.5-5.0 [facility] ([place]) Comment on above: Performed By: #### C BC, ADIFF, MG, FERR, B12, VIDH, GFR, FE, CMP, ANEU ####[address] [address] Sodium [Moles/Vol] 140 mmol/L Normal 136-145 [facility] ([place]) Comment on above: Performed By: #### C BC, ADIFF, MG, FERR, B12, VIDH, GFR, FE, CMP, ANEU ####[address] [address] Total Protein 7.2 G/dL Normal 5.7-8.2 [facility] ([place]) Comment on above: Result Comment: No te - New Reference Range in effect 20 Performed By: #### C BC, ADIFF, MG, FERR, B12, VIDH, GFR, FE, CMP, ANEU ####[address] [address] Urea nitrogen [Mass/Vol] 12.0 mg/dL Normal 8.0-22.0 [facility] ([place]) Comment on above: Performed By: #### C BC, ADIFF, MG, FERR, B12, VIDH, GFR, FE, CMP, ANEU ####[address] [address] FEon 09-25-2023 Iron [Mass/Vol] 49 ug/dL Low 50-170 [facility] ([place]) Comment on above: Performed By: #### C BC, ADIFF, MG, FERR, B12, VIDH, GFR, FE, CMP, ANEU ####[address] [address] Bhavani 09-25-2023 Ferritin [Mass/Vol] 27.8 ng/mL Normal 8.0-252.0 [facility] ([place]) Comment on above: Performed By: #### C BC, ADIFF, MG, FERR, B12, VIDH, GFR, FE, CMP, ANEU ####[address] [address] MGon 09-25-2023 Magnesium [Mass/Vol] 2.0 mg/dL Normal 1.6-2.4 [facility] ([place]) Comment on above: Performed By: #### C BC, ADIFF, MG, FERR, B12, VIDH, GFR, FE, CMP, ANEU ####[address] [address] VIDHon 09-25-2023 Vit. D 25-Hydroxy 86.1 ng/mL Normal [facility] ([place]) Comment on above: Result Comment: Inte rpretive Values Based on Total 25(OH)D: Severe Deficiency <20 ng/mL Mild to Moderate Deficiency 20-30 ng/mL Optimum Levels 30-100 ng/mL Toxicity Possible >100 ng/mL Performed By: #### C BC, ADIFF, MG, FERR, B12, VIDH, GFR, FE, CMP, ANEU ####[address] [address] HbA1c (Bld)on 09-06-2023 Average glucose Estimated from glycated hemoglobin (Bld) [Mass/Vol] 157 mg/dL [facility] HbA1c (Bld) [Mass fraction] 7.1 % High 4.3 - 5.6 % [facility] SCREENING W TOMOon 09-05 TRINI SCREENING W MAHENDRA * * *Final Report* * * DATE OF EXAM: Sep 05 2023 11:02AM [facility] 0582 - TRINI SCREENING W MAHENDRA / PROCEDURE REASON: [id number] CHRIS MAMMOGRAM SCREENING WITH CAD * * * * Physician Interpretation * * * * #[id number] - [facility] SCREENING W MAHENRDA BILATERAL DIGITAL SCREENING MAMMOGRAM TOMOSYNTHESIS WITH CAD: 09/05/2023 HISTORY: [id number] Chris Mammogram Screening With Cad. RESULT: TECHNIQUE: The study was acquired using full field digital technology and interpreted from soft copy. Digital Breast Tomosynthesis (DBT) images were obtained and used to assist in the interpretation of this examination. Current study was also evaluated with a Computer Aided Detection (CAD). Comparison is made to exams dated: 08/23/2021 mammogram and 09/01/2022 mammogram - [facility]. The breasts are almost entirely fatty. There are benign vascular calcifications in both breasts. No significant masses, calcifications, or other findings are seen in either breast. There has been no significant interval change. IMPRESSION: BENIGN FINDING There is no mammographic evidence of malignancy. A 1 year screening mammogram is recommended. Glenny feldman/jamaal:09/05/2023 14:46:21 Telegraph Lineman(s): Opal Cates [facility] letter sent: Normal over 40 Mammogram BI-RADS: 2 Benign finding Multiple national specialty organizations have released breast cancer screening guidelines for women at average risk for developing breast cancer - guidelines that are based on both evidence and opinion, yet differ on when to start and how often to screen for breast cancer. With representation from Breast Imaging, Internal Medicine, Women's Health, Family Medicine, and Medical/Surgical Oncology, the [facility] has carefully reviewed the data and reached the following consensus: 1) All women should engage in shared decision-making with their providers to decide when to start and how often to screen; 2) All women should have the opportunity to start screening mammography at age 40; 3) For women ages 45-55, we recommend annual screening mammograms; 4) For women ages 55 and over, we support both the transition from an annual to a biennial interval if this aligns more with patient's values and preferences, or continuation with annual screening; 5) All women should discuss with their providers when to stop screening mammograms. Hotel Night Auditor: Jamaal Transcribe Date/Time: Sep 05 2023 10:40A Dictated by : GLENNY VELAZQUEZ MD This examination was interpreted and the report reviewed and electronically signed by: GLENNY VELAZQUEZ MD on Sep 05 2023 2:46PM EST [id number] Normal [facility] A1Con 07-25-2023 HbA1c (Bld) [Mass fraction] 7.4 % High 4.0-6.0 [facility] ([place]) Comment on above: Performed By: #### G FR, ADIFF, A1C, TSH, CBC, ANEU, LIPID, CMP, FT4 ####[address] [address] .Auto Diffon 07-24-2023 Basophil, Absolute 0.1 10 3/mcL Normal 0.0-0.3 [facility] ([place]) Comment on above: Performed By: #### G FR, ADIFF, A1C, TSH, CBC, ANEU, LIPID, CMP, FT4 ####[address] [address] Basophils/100 WBC (Bld) 0.8 % Normal 0.0-2.5 [facility] ([place]) Comment on above: Performed By: #### G FR, ADIFF, A1C, TSH, CBC, ANEU, LIPID, CMP, FT4 ####[place] [address] Eosinophil, Absolute 0.1 10 3/mcL Normal 0.0-0.7 [facility] ([place]) Comment on above: Performed By: #### G FR, ADIFF, A1C, TSH, CBC, ANEU, LIPID, CMP, FT4 ####[address] [address] Eosinophils/100 WBC (Bld) 0.9 % Normal 0.0-6.0 [facility] ([place]) Comment on above: Performed By: #### G FR, ADIFF, A1C, TSH, CBC, ANEU, LIPID, CMP, FT4 ####[address] [address] Lymphocyte, Absolute 2.3 10 3/mcL Normal 0.9-4.3 [facility] ([place]) Comment on above: Performed By: #### G FR, ADIFF, A1C, TSH, CBC, ANEU, LIPID, CMP, FT4 ####[address] [address] Lymphocytes/100 WBC (Bld) 32.4 % Normal 20.0-40.0 [facility] ([place]) Comment on above: Performed By: #### G FR, ADIFF, A1C, TSH, CBC, ANEU, LIPID, CMP, FT4 ####[address] [place] [address] Monocyte, Absolute 0.6 10 3/mcL Normal 0.1-1.4 [facility] ([place]) Comment on above: Performed By: #### G FR, ADIFF, A1C, TSH, CBC, ANEU, LIPID, CMP, FT4 ####[address] [address] Monocytes/100 WBC (Bld) 8.0 % Normal 2.0-13.0 [facility] ([place] Comment on above: Performed By: #### G FR, ADIFF, A1C, TSH, CBC, ANEU, LIPID, CMP, FT4 ####[address] [address] Neutrophils/100 WBC (Bld) 57.9 % Normal 50.0-75.0 [facility] ([place] Comment on above: Performed By: #### G FR, ADIFF, A1C, TSH, CBC, ANEU, LIPID, CMP, FT4 ####[address] [address] .GFRon 07-24-2023 GFR >60 Normal [facility] ([place]) Comment on above: Result Comment: GFR Population mean for , Non- Americans Ages 20-29 = 116 mL/min/1.73 sq.m. Ages 30-39 = 107 mL/min/1.73 sq.m. Ages 40-49 = 99 mL/min/1.73 sq.m. Ages 50-59 = 93 mL/min/1.73 sq.m. Ages 60-69 = 85 mL/min/1.73 sq.m. Ages 70+ = 75 mL/min/1.73 sq.m. Chronic Kidney Disease: Less than 60 mL/min/1.73 square meters End Stage Renal Disease: Less than 15 mL/min/1.73 square meters Performed By: #### G FR, ADIFF, A1C, TSH, CBC, ANEU, LIPID, CMP, FT4 ####[address] [address] GFR Non- >60 Normal [facility] ([place] Comment on above: Result Comment: GFR Population mean for , Non- Americans Ages 20-29 = 116 mL/min/1.73 sq.m. Ages 30-39 = 107 mL/min/1.73 sq.m. Ages 40-49 = 99 mL/min/1.73 sq.m. Ages 50-59 = 93 mL/min/1.73 sq.m. Ages 60-69 = 85 mL/min/1.73 sq.m. Ages 70+ = 75 mL/min/1.73 sq.m. Chronic Kidney Disease: Less than 60 mL/min/1.73 square meters End Stage Renal Disease: Less than 15 mL/min/1.73 square meters Performed By: #### G FR, ADIFF, A1C, TSH, CBC, ANEU, LIPID, CMP, FT4 ####[place] [address] .NEUABSon 07-24-2023 Neutrophil, Absolute 4.1 10 3/mcL Normal 2.3-8.1 [facility] ([place]) Comment on above: Performed By: #### G FR, ADIFF, A1C, TSH, CBC, ANEU, LIPID, CMP, FT4 ####[place] [address] CBCon 07-24-2023 Erythrocyte distribution width (RBC) [Ratio] 14.9 % Normal 11.5-15.5 [facility] ([place] Comment on above: Performed By: #### G FR, ADIFF, A1C, TSH, CBC, ANEU, LIPID, CMP, FT4 ####[place] [address] Hematocrit (Bld) [Volume fraction] 39.6 % Normal 34.0-46.0 [facility] ([place] Comment on above: Performed By: #### G FR, ADIFF, A1C, TSH, CBC, ANEU, LIPID, CMP, FT4 ####[place] [address] Hgb 13.2 G/dL Normal 12.0-16.0 [facility] ([place] Comment on above: Performed By: #### G FR, ADIFF, A1C, TSH, CBC, ANEU, LIPID, CMP, FT4 ####[place] [address] MCH (RBC) [Entitic mass] 29.5 pg Normal 27.0-33.0 [facility] ([place] Comment on above: Performed By: #### G FR, ADIFF, A1C, TSH, CBC, ANEU, LIPID, CMP, FT4 ####[place] [address] MCHC 33.3 G/dL Normal 32.0-36.0 [facility] ([place] Comment on above: Performed By: #### G FR, ADIFF, A1C, TSH, CBC, ANEU, LIPID, CMP, FT4 ####[place] [address] MCV (RBC) [Entitic vol] 88.4 fL Normal 80.0-99.0 [facility] ([place] Comment on above: Performed By: #### G FR, ADIFF, A1C, TSH, CBC, ANEU, LIPID, CMP, FT4 ####[place] [address] Platelet 405 10 3/mcL Normal 150-450 [facility] ([place] Comment on above: Performed By: #### G FR, ADIFF, A1C, TSH, CBC, ANEU, LIPID, CMP, FT4 ####[place] [address] Platelet mean volume (Bld) [Entitic vol] 7.6 fL Normal 6.6-10.5 [facility] ([place] Comment on above: Performed By: #### G FR, ADIFF, A1C, TSH, CBC, ANEU, LIPID, CMP, FT4 ####[place] [address] RBC 4.49 10 6/mcL Normal 4.10-5.30 [facility] ([place] Comment on above: Performed By: #### G FR, ADIFF, A1C, TSH, CBC, ANEU, LIPID, CMP, FT4 ####[place] [address] WBC 7.1 10 3/mcL Normal 4.5-10.8 [facility] ([place] Comment on above: Performed By: #### G FR, ADIFF, A1C, TSH, CBC, ANEU, LIPID, CMP, FT4 ####[address] [address] CMPon 07-24-2023 Albumin Level 3.8 G/dL Normal 3.2-4.8 [facility] ([place] Comment on above: Performed By: #### G FR, ADIFF, A1C, TSH, CBC, ANEU, LIPID, CMP, FT4 ####[place] [address] Albumin/Globulin [Mass ratio] 1.1 {ratio} Normal 0.9-1.6 [facility] ([place] Comment on above: Performed By: #### G FR, ADIFF, A1C, TSH, CBC, ANEU, LIPID, CMP, FT4 ####[address] [address] ALP [Catalytic activity/Vol] 82 U/L Normal 38-126 [facility] ([place] Comment on above: Performed By: #### G FR, ADIFF, A1C, TSH, CBC, ANEU, LIPID, CMP, FT4 ####[place] [address] ALT [Catalytic activity/Vol] 22 U/L Normal 10-49 [facility] ([place] Comment on above: Performed By: #### G FR, ADIFF, A1C, TSH, CBC, ANEU, LIPID, CMP, FT4 ####[place] [id number] AST [Catalytic activity/Vol] 28 U/L Normal 8-34 [facility] ([place] Comment on above: Performed By: #### G FR, ADIFF, A1C, TSH, CBC, ANEU, LIPID, CMP, FT4 ####[place] [address] Bili Total 0.70 mg/dL Normal 0.20-1.20 [facility] ([place] Comment on above: Result Comment: Use of this assay is not recommended for patients undergoing treatment with eltrombopag due to the potential for falsely elevated results. Performed By: #### G FR, ADIFF, A1C, TSH, CBC, ANEU, LIPID, CMP, FT4 ####[address] [address] BUN/Creatinine Ratio 23.3 ratio High 10.0-22.0 [facility] ([place]) Comment on above: Performed By: #### G FR, ADIFF, A1C, TSH, CBC, ANEU, LIPID, CMP, FT4 ####[place] [address] Calcium [Mass/Vol] 9.3 mg/dL Normal 8.7-10.4 [facility] ([place] Comment on above: Performed By: #### G FR, ADIFF, A1C, TSH, CBC, ANEU, LIPID, CMP, FT4 ####[place] [address] Chloride [Moles/Vol] 103 mmol/L Normal 98-110 [facility] ([place] Comment on above: Performed By: #### G FR, ADIFF, A1C, TSH, CBC, ANEU, LIPID, CMP, FT4 ####[place] [id number] CO2 [Moles/Vol] 28 mmol/L Normal 22-32 [facility] ([place] Comment on above: Performed By: #### G FR, ADIFF, A1C, TSH, CBC, ANEU, LIPID, CMP, FT4 ####[place] [address] Creatinine [Mass/Vol] 0.60 mg/dL Normal 0.50-1.20 [facility] ([place] Comment on above: Performed By: #### G FR, ADIFF, A1C, TSH, CBC, ANEU, LIPID, CMP, FT4 ####[place] [address] Electrolyte Balance 9.0 mEq/L Normal 4.0-15.0 [facility] ([place] Comment on above: Performed By: #### G FR, ADIFF, A1C, TSH, CBC, ANEU, LIPID, CMP, FT4 ####[place] [address] Globulin 3.4 G/dL Normal 1.5-3.8 [facility] ([place] Comment on above: Performed By: #### G FR, ADIFF, A1C, TSH, CBC, ANEU, LIPID, CMP, FT4 ####[address] [address] Glucose [Mass/Vol] 120 mg/dL High 82-115 [facility] ([place] Comment on above: Performed By: #### G FR, ADIFF, A1C, TSH, CBC, ANEU, LIPID, CMP, FT4 ####[address] [address] Potassium [Moles/Vol] 4.0 mmol/L Normal 3.5-5.0 [facility] ([place] Comment on above: Performed By: #### G FR, ADIFF, A1C, TSH, CBC, ANEU, LIPID, CMP, FT4 ####[address] [address] Sodium [Moles/Vol] 140 mmol/L Normal 136-145 [facility] ([place] Comment on above: Performed By: #### G FR, ADIFF, A1C, TSH, CBC, ANEU, LIPID, CMP, FT4 ####[place] [address] Total Protein 7.2 G/dL Normal 5.7-8.2 [facility] ([place] Comment on above: Result Comment: No te - New Reference Range in effect 20 Performed By: #### G FR, ADIFF, A1C, TSH, CBC, ANEU, LIPID, CMP, FT4 ####[place] [address] Urea nitrogen [Mass/Vol] 14.0 mg/dL Normal 8.0-22.0 [facility] ([place] Comment on above: Performed By: #### G FR, ADIFF, A1C, TSH, CBC, ANEU, LIPID, CMP, FT4 ####[address] [address] FT4on 07-24-2023 Free T4 [Mass/Vol] 1.06 ng/dL Normal 0.89-1.76 [facility] ([place] Comment on above: Result Comment: No te - New Reference Range in effect 20 Performed By: #### G FR, ADIFF, A1C, TSH, CBC, ANEU, LIPID, CMP, FT4 ####[address] [address] LIPIDon 07-24-2023 Cholesterol [Mass/Vol] 197 mg/dL Normal 50-199 [facility] ([place] Comment on above: Result Comment: Chol esterol Reference Interval: Less than 200 Desirable 200-239 Borderline high risk 240 and above High risk Performed By: #### G FR, ADIFF, A1C, TSH, CBC, ANEU, LIPID, CMP, FT4 ####[place] [address] Cholesterol in HDL [Mass/Vol] 53 mg/dL Normal 40-59 [facility] ([place] Comment on above: Performed By: #### G FR, ADIFF, A1C, TSH, CBC, ANEU, LIPID, CMP, FT4 ####[place] [address] Cholesterol in LDL [Mass/Vol] 115 mg/dL Normal 0-129 [facility] ([place] Comment on above: Performed By: #### G FR, ADIFF, A1C, TSH, CBC, ANEU, LIPID, CMP, FT4 ####[place] [address] Triglyceride [Mass/Vol] 144 mg/dL Normal 3-149 [facility] ([place] Comment on above: Performed By: #### G FR, ADIFF, A1C, TSH, CBC, ANEU, LIPID, CMP, FT4 ####[place] [id number] TSHon 07-24-2023 TSH 1.748 mIU/mL Normal 0.550-4.78 0 [facility], [facility] ([place]) Comment on above: Result Comment: No te - New Reference Range in effect 20 Performed By: #### G FR, ADIFF, A1C, TSH, CBC, ANEU, LIPID, CMP, FT4 ####[place] [id number] Comprehensive metabolic 2000 panelon 03-16-2023 Albumin [Mass/Vol] 3.5 g/dL Normal 3.2-5.0 [facility] Comment on above: Order Comment: Speci men Type: BLOOD SPECIMEN Ordering Facility: [facility] Center Address: [address], [place] [address] Performed By: #### 2 4323-8, 6-3 #### [facility] CLIA [id number] [address] [place] [address] [place] #### 93312-1 #### [facility] CLIA [id number] [address] [place] [address] [facility] CLIA [id number] [address] [place] [address] [place] ALP [Catalytic activity/Vol] 83 U/L Normal 45-117 [facility] Comment on above: Order Comment: Speci men Type: BLOOD SPECIMEN Ordering Facility: [facility] Address: [address], [place] [address] Performed By: #### 2 4323-8, 3015-3 #### [facility] CLIA [id number] [address] [place] [address] [place] #### 56257-7 #### [facility] CLIA [id number] [address] [place], [place] [address]N LAB CLIA [id number] [address] [place] [address] [place] ALT [Catalytic activity/Vol] 19 U/L Normal 13-61 [facility] Comment on above: Order Comment: Speci men Type: BLOOD SPECIMEN Ordering Facility: [facility] Address: [address], [place] [address] Result Comment: Resu lts may be falsely depressed after the administration of Sulfasalazine and/or Sulfapyridine. Performed By: #### 2 4323-8, 6-3 #### [facility] CLIA [id number] [address] [place] [address] [place] #### 82015-9 #### [facility] CLIA [id number] [address] [place] [place] [address] [facility] CLIA [id number] [address] [place] [address] [place] Anion gap [Moles/Vol] 7 mmol/L Normal 5-16 [facility] Comment on above: Order Comment: Speci men Type: BLOOD SPECIMEN Ordering Facility: [facility] Address: [address], [place] [address] Performed By: #### 2 4323-8, 3016-3 #### [facility] CLIA [id number] [address] [place] [address] [place] #### 15679-1 #### [facility] CLIA [id number] [address] [place], [place] [address] LAB CLIA [id number] [address] [place] [address] [place] AST [Catalytic activity/Vol] 25 U/L Normal 8-34 [facility] Comment on above: Order Comment: Speci men Type: BLOOD SPECIMEN Ordering Facility: [facility] Address: [address], [place] [address] Result Comment: Resu lts may be falsely depressed after the administration of Sulfasalazine and/or Sulfapyridine. Performed By: #### 2 4323-8, 3016-3 #### [facility] CLIA [id number] [address] [place] [address] [place] #### 66625-3 #### [facility] CLIA [id number] [address] [place], [place] [address] [facility] CLIA [id number] [address] [place] [address] [place] Bilirubin [Mass/Vol] 0.9 mg/dL Normal 0.2-1.0 [facility] Comment on above: Order Comment: Speci men Type: BLOOD SPECIMEN Ordering Facility: [facility] Address: [address], [place] [address] Performed By: #### 2 4323-8, 6-3 #### [facility] CLIA [id number] [address] [place] #### 01089-0 #### [facility] CLIA [id number] [address] [place] [address] [facility] [place] [facility] CLIA [id number] [address] [place] [address] [place] Calcium [Mass/Vol] 9.1 mg/dL Normal 8.5-10.5 [facility] Comment on above: Order Comment: Speci men Type: BLOOD SPECIMEN Ordering Facility: [facility] Address: [address], [place] [address] Performed By: #### 2 4323-8, 3015-3 #### [facility] CLIA [id number] [address] [place] [address] [facility] #### 70670-8 #### [facility] CLIA [id number] [address] [place], [place] [address] [place] [facility] CLIA [id number] [address] [place] [address] [place] Chloride [Moles/Vol] 104 mmol/L Normal 98-107 [facility] Comment on above: Order Comment: Speci men Type: BLOOD SPECIMEN Ordering Facility: [facility] Address: [address], [place] [address] Performed By: #### 2 4323-8, 3015-3 #### [facility] CLIA [id number] [address] [place] [address] [place] #### 65586-3 #### [facility] CLIA [id number] [address] [place] [address] [place] [facility] [place] [facility] CLIA [id number] [address] [place] [address] [place] CO2 [Moles/Vol] 30 mmol/L Normal 21-32 [facility] Comment on above: Order Comment: Speci men Type: BLOOD SPECIMEN Ordering Facility: [facility] Address: [facility] [address], [place] [address] Performed By: #### 2 4323-8, 3016-3 #### [facility] CLIA [id number] [address] [place] [address] #### 15273-6 #### [facility] CLIA [id number] [address] [place] [address] [facility] CLIA [id number] [address] [place] [address] Creatinine [Mass/Vol] 0.66 mg/dL Normal 0.51-0.95 [facility] Comment on above: Order Comment: Speci men Type: BLOOD SPECIMEN Ordering Facility: [facility] Address: [facility] [address], [place] [address] Result Comment: Jailyn ents receiving either N-Acetylcysteine (NAC) or Metamizole prior to venipuncture, may have falsely depressed results. Performed By: #### 2 4323-8, 3016-3 #### [facility] CLIA [id number] [address] [place] [address] #### 04527-9 #### [facility] CLIA [id number] [address] [place] [address] [facility] CLIA [id number] [address] [place] [address] ESTIMATED GLOMERULAR FILTRATION RATE 90 mL/min/1.73m??? Normal >=60 [facility] Comment on above: Order Comment: Jose knowles Type: BLOOD SPECIMEN Ordering Facility: [facility] Address: [address], [place] [address] Result Comment: Prudence mated Glomerular Filtration Rate (eGFR) is calculated using the 2020 CKD-EPI creatinine equation. This equation utilizes serum creatinine, sex, and age as parameters. The creatinine assay has traceable calibration to isotope dilution-mass spectrometry. Refer to KDIGO guidelines for clinical interpretation. In patients with unstable renal function, e.g. those with acute kidney injury, the eGFR may not accurately reflect actual GFR. Performed By: #### 2 4323-8, 3015-3 #### [facility] CLIA [id number] [address] [place], [place] [address] [facility] [place] #### 68014-5 #### [facility] CLIA [id number] [address] [place], [place] [address] [facility] [place] [facility] CLIA [id number] [address] Glucose [Mass/Vol] 150 mg/dL High 70-100 [facility] Comment on above: Order Comment: Speci men Type: BLOOD SPECIMEN Ordering Facility: [facility] Address: [address] [place] [address] [address], [place] [address] Result Comment: The [place] Diabetes Association (ADA) provides guidance for cutoff values for fasting glucose and random glucose. The ADA defines fasting as no caloric intake for at least 8 hours. Fasting plasma glucose results between 100 to 125 mg/dL indicate increased risk for diabetes (prediabetes). Fasting plasma glucose results greater than or equal to 126 mg/dL meet the criteria for diagnosis of diabetes. In the absence of unequivocal hyperglycemia, results should be confirmed by repeat testing. In a patient with classic symptoms of hyperglycemia or hyperglycemic crisis, random plasma glucose results greater than or equal to 200 mg/dL meet the criteria for diagnosis of diabetes. Reference: Standards of Medical Care in Diabetes 2016, [place] Diabetes Association. Diabetes Care. 2016.39(Suppl 1). Results may be falsely elevated after the administration of Sulfapyridine. Results may be falsely depressed after the administration of Sulfasalazine. Performed By: #### 2 4323-8, 3015-3 #### [facility] CLIA [id number] [address] [place], [place] [address] [facility] [place] #### 67027-7 #### [facility] CLIA [id number] [address] [place], [place] [address] [facility] [place] CLIA [id number] [address] [place] [address] [place] Potassium [Moles/Vol] 4.1 mmol/L Normal 3.5-5.1 [facility] Comment on above: Order Comment: Speci men Type: BLOOD SPECIMEN Ordering Facility: [facility] Address: [address], [place] [id number] Performed By: #### 2 4323-8, 3016-3 #### [facility] CLIA [id number] [address] [place] [place] [address] [place] #### 00933-4 #### [facility] CLIA [id number] [address] [place] [place] [address] [facility] CLIA [id number] [address] [place] Protein [Mass/Vol] 6.8 g/dL Normal 6.0-8.5 [facility] Comment on above: Order Comment: Speci men Type: BLOOD SPECIMEN Ordering Facility: [facility] Address: [address], [place] [address] Performed By: #### 2 4323-8, 6-3 #### [facility] CLIA [id number] [address] [place] [address] [place] #### 55294-0 #### [facility] CLIA [id number] [address] [place] [place] [address] [facility] CLIA [id number] [facility] [address] STATES [facility] Sodium [Moles/Vol] 141 mmol/L Normal 136-145 [facility] Comment on above: Order Comment: Speci men Type: BLOOD SPECIMEN Ordering Facility: [facility] Address: [address], [place] [address] Performed By: #### 2 4323-8, 3016-3 #### [facility] CLIA [id number] [address] [place] [place] [address] [place] #### 28313-3 #### [facility] CLIA [id number] [address] [place], [place] [address] [facility] CLIA [id number] [address] [place] [address] [place] Urea nitrogen [Mass/Vol] 17 mg/dL Normal 05-31 [facility] Comment on above: Order Comment: Speci men Type: BLOOD SPECIMEN Ordering Facility: [facility] Address: [facility] [address], [place] [address] Performed By: #### 2 4323-8, 3016-3 #### [facility] CLIA [id number] [address] [place] [address] [place] #### 03620-5 #### [facility] CLIA [id number] [address] [place] [address] [place] [facility] CLIA [id number] [address] [place] [address] [place] HbA1c (Bld)on 03-16-2023 Average glucose Estimated from glycated hemoglobin (Bld) [Mass/Vol] 163 mg/dL Normal [facility] Comment on above: Order Comment: Jose knowles Type: BLOOD SPECIMEN Ordering Facility: [facility] Address: [address], [place] [address] Result Comment: eAG: (Estimated average glucose) is a calculated value from HgbA1c and is community relations representative of the average blood glucose level in the last 2-3 month period. Performed By: #### 5 5454-3 #### [facility] CLIA [id number] [address] [place] [address] [place] HbA1c (Bld) [Mass fraction] 7.3 % High 4.3-6.0 [facility] Comment on above: Order Comment: Jose knowles Type: BLOOD SPECIMEN Ordering Facility: [facility] Address: [address], [place] [address] Result Comment: [place] Diabetes Association guidelines indicate that patients with HgbA1c in the range 5.7-6.4% are at increased risk for development of diabetes, and intervention by lifestyle modification may be beneficial. HgbA1c greater or equal to 6.5% is considered diagnostic of diabetes. Performed By: #### 5 5454-3 #### [facility] CLIA [id number] [address] [place] [address] [facility] Lipid 1996 panelon 3 Cholesterol [Mass/Vol] 205 mg/dL High 0-199 [facility] Comment on above: Order Comment: Speci men Type: BLOOD SPECIMEN Ordering Facility: [facility] Address: [facility] [address], [place] [address] Result Comment: <200 mg/dL, Desirable 200-239 mg/dL, Borderline high >239 mg/dL, High Performed By: #### 2 4323-8, 3016-3 #### [facility] CLIA [id number] [address] [place] [address] #### 41311-5 #### [facility] CLIA [id number] [address] [place] [address] [facility] CLIA [id number] [address] Cholesterol in HDL [Mass/Vol] 50 mg/dL Normal >40 [facility] Comment on above: Order Comment: Jenyi eleni Type: BLOOD SPECIMEN Ordering Facility: [facility] Address: [facility] [address], [place] [address] Result Comment: 40-5 9 mg/dL, Acceptable >59 mg/dL, High: Negative risk factor for coronary heart disease <40 mg/dL, Low: Positive risk factor for coronary heart disease Performed By: #### 2 4323-8, 3016-3 #### [facility] CLIA [id number] [address] [place] [address] #### 05488-8 #### [facility] CLIA [id number] [address] [place] [address] [facility] CLIA [id number] [address] Cholesterol in LDL [Mass/Vol] 129 mg/dL Normal 0-129 [facility] Comment on above: Order Comment: Speci men Type: BLOOD SPECIMEN Ordering Facility: [facility] Address: [address], [place] [address] Result Comment: <100 mg/dL, Optimal 100-129 mg/dL, Near optimal/above optimal 130-159 mg/dL, Borderline high 160-189 mg/dL, High >189 mg/dL, Very high Secondary prevention optimal LDL Cholesterol levels are recommended to be < 70 mg/dL Performed By: #### 2 4323-8, 3016-3 #### [facility] CLIA [id number] [address] [place] [address] #### 96360-7 #### [facility] CLIA [id number] [address] [place], [place] [address] LAB CLIA [id number] [address] [place] [address] Cholesterol in LDL/Cholesterol in HDL [Mass ratio] 2.58 {ratio} High <2.54 [facility] Comment on above: Order Comment: Speci men Type: BLOOD SPECIMEN Ordering Facility: [facility] Address: [address], [place] [address] Result Comment: Refe rence: 1. National Cholesterol Education Program ATP III Guideline At-A-Glance Quick Desk Reference: National Heart, Lung, and Blood Center. National Institutes of Health. 2001: NIH Publication No. 01-3305. 2. An International Atherosclerosis Society position paper: global recommendations for the management of dyslipidemia: executive summary, Atherosclerosis. 2014: 232(2):410-413. Performed By: #### 2 4323-8, 3015-3 #### [facility] CLIA [id number] [address] [place] [address] #### 89426-5 #### [facility] CLIA [id number] [address] [place], [place] [address] [facility] CLIA [id number] [address] STATES [place] Cholesterol in VLDL [Mass/Vol] 26 mg/dL Normal <30 [facility] Comment on above: Order Comment: Speci eleni Type: BLOOD SPECIMEN Ordering Facility: [facility] Address: [address], [place] [address] Performed By: #### 2 4323-8, 3016-3 #### [facility] CLIA [id number] [address] [place] [address] #### 91560-4 #### [facility] CLIA [id number] [address] [place] [id number] [facility] CLIA [id number] [address] [place] [address] Cholesterol non HDL [Mass/Vol] 155 mg/dL High <130 [facility] Comment on above: Order Comment: Jose knowles Type: BLOOD SPECIMEN Ordering Facility: [facility] Address: [address], [place] [address] Result Comment: <130 mg/dL, Optimal 130-159 mg/dL, Near optimal/above optimal 160-189 mg/dL, Borderline high 190-219 mg/dL, High >219 mg/dL, Very high Secondary prevention optimal non HDL Cholesterol levels are recommended to be <100 mg/dL Performed By: #### 2 4323-8, 3016-3 #### [facility] CLIA [id number] [address] [place] [address] #### 46225-6 #### [facility] CLIA [id number] [address] [place] [address] LAB CLIA [id number] [address] Cholesterol.total/Ch olesterol in HDL [Mass ratio] 4.10 {ratio} Normal <5.10 [facility] Comment on above: Order Comment: Jose knowles Type: BLOOD SPECIMEN Ordering Facility: [facility] Address: [address], [place] [address] Performed By: #### 2 4323-8, 3016-01 #### [facility] CLIA [id number] [address] [place] [address] [place] #### 10350-0 #### [facility] CLIA [id number] [address] [place] [address] [facility] CLIA [id number] [facility] [place] [address] [place] FASTING TIME 12 hrs Normal [facility] Comment on above: Order Comment: Speci men Type: BLOOD SPECIMEN Ordering Facility: [facility] Address: [facility] [address], [place] [address] Performed By: #### 2 4323-8, 3016-01 #### [facility] CLIA [id number] [address] [place] [address] #### 63718-6 #### [facility] CLIA [id number] [address] [place] [address] [facility] CLIA [id number] [address] [place] [address] Triglyceride [Mass/Vol] 131 mg/dL Normal 30-149 [facility] Comment on above: Order Comment: Speci men Type: BLOOD SPECIMEN Ordering Facility: [facility] Address: [facility] [address], [place] [address] Result Comment: <150 mg/dL, Normal 150-199 mg/dL, Borderline high 200-499 mg/dL, High >499 mg/dL, Very high Patients receiving either N-Acetylcysteine (NAC) or Metamizole prior to venipuncture, may have falsely depressed results. Performed By: #### 2 4323-8, 3016-01 #### [facility] CLIA [id number] [address] [place] [address] [place] #### 25617-3 #### [facility] CLIA [id number] [address] [place] [address] STATES [facility] CLIA [id number] [address] [place] [address] [place] TSH SerPl-aCncon 03-16-2023 TSH Qn 1.501 m[IU]/L Normal 0.358-3.74 0 [facility] Comment on above: Order Comment: Speci men Type: BLOOD SPECIMEN Ordering Facility: [facility] Address: [address], [place] [address] Result Comment: 3rd generation ultra sensitive TSH. Performed By: #### 2 4323-8, 3016-3 #### [facility] CLIA [id number] [address] [place] [address] [place] #### 29430-9 #### [facility] CLIA [id number] [address] [place] [address] LAB CLIA [id number] [facility] [place] [address] [place] Comprehensive metabolic 2000 panelon 11-11-2022 Albumin [Mass/Vol] 3.5 g/dL Normal 3.2-5.0 [facility] Comment on above: Order Comment: Speci men Type: BLOOD SPECIMEN Ordering Facility: [facility] Address: [address], [place] [address] Performed By: #### 2 4323-8 #### [facility] CLIA [id number] [address] [place] [address] [facility] #### 75476-0 #### [facility] CLIA [id number] [address] [place], [place] [address] LAB CLIA [id number] [address] [place] [address] [place] ALP [Catalytic activity/Vol] 85 U/L Normal 45-117 [facility] Comment on above: Order Comment: Speci men Type: BLOOD SPECIMEN Ordering Facility: [facility] Address: [address], [place] [address] Performed By: #### 2 4323-8 #### [facility] CLIA [id number] [address] [place] [id number] [facility] [place] #### 43458-3 #### [facility] CLIA [id number] [address] [place], [place] [address] [facility] CLIA [id number] [address] [place] [address] [place] ALT [Catalytic activity/Vol] 21 U/L Normal 13-61 [facility] Comment on above: Order Comment: Speci men Type: BLOOD SPECIMEN Ordering Facility: [facility] Address: [address], [place] [address] Result Comment: Resu lts may be falsely depressed after the administration of Sulfasalazine and/or Sulfapyridine. Performed By: #### 2 4323-8 #### [facility] CLIA [id number] [address] [place] [address] [facility] #### 10686-2 #### [facility] CLIA [id number] [address] [place], [place] [address] [facility] CLIA [id number] [address] [place] [address] [place] Anion gap [Moles/Vol] 7 mmol/L Normal 5-16 [facility] Comment on above: Order Comment: Speci men Type: BLOOD SPECIMEN Ordering Facility: [facility] Address: [address], [place] [address] Performed By: #### 2 4323-8 #### [facility] CLIA [id number] [address] [place] [address] [place] #### 11597-1 #### [facility] CLIA [id number] [address] [place], [place] [address] [facility] CLIA [id number] [address] [place] [address] [place] AST [Catalytic activity/Vol] 27 U/L Normal 8-34 [facility] Comment on above: Order Comment: Speci men Type: BLOOD SPECIMEN Ordering Facility: [facility] Address: [address], [place] [address] Result Comment: Resu lts may be falsely depressed after the administration of Sulfasalazine and/or Sulfapyridine. Performed By: #### 2 4323-8 #### [facility] CLIA [id number] [address] [place] [address] [facility] #### 03655-9 #### [facility] CLIA [id number] [address] [place], [place] [address] [facility] CLIA [id number] [address] [place] [address] [place] Bilirubin [Mass/Vol] 0.4 mg/dL Normal 0.2-1.0 [facility] Comment on above: Order Comment: Speci men Type: BLOOD SPECIMEN Ordering Facility: [facility] Address: [address], [place] [address] Performed By: #### 2 4323-8 #### [facility] CLIA [id number] [address] [place] [address] #### 24205-0 #### [facility] CLIA [id number] [address] [place], [place] [address] [facility] CLIA [id number] [address] [place] [address] [place] Calcium [Mass/Vol] 8.9 mg/dL Normal 8.5-10.5 [facility] Comment on above: Order Comment: Speci men Type: BLOOD SPECIMEN Ordering Facility: [facility] Address: [address], [place] [address] Performed By: #### 2 4323-8 #### [facility] CLIA [id number] [address] [place] [address] [place] #### 67266-1 #### [facility] CLIA [id number] [address] [place], [place] [id number] [facility] CLIA [id number] [address] [place] [address] [place] Chloride [Moles/Vol] 104 mmol/L Normal 98-107 [facility] Comment on above: Order Comment: Speci men Type: BLOOD SPECIMEN Ordering Facility: [facility] Address: [address], [place] [address] Performed By: #### 2 4323-8 #### [facility] CLIA [id number] [address] [place] [address] [place] #### 67406-5 #### [facility] CLIA [id number] [address] [place], [place] [address]N LAB CLIA [id number] [address] [place] [address] [place] CO2 [Moles/Vol] 29 mmol/L Normal 21-32 [facility] Comment on above: Order Comment: Speci men Type: BLOOD SPECIMEN Ordering Facility: [facility] Address: [address], [place] [address] Performed By: #### 2 4323-8 #### [facility] CLIA [id number] [address] [place] [address] [facility] #### 43336-8 #### [facility] CLIA [id number] [address] [place], [place] [address]N LAB CLIA [id number] [address] [place] [address] [place] Creatinine [Mass/Vol] 0.55 mg/dL Normal 0.51-0.95 [facility] Comment on above: Order Comment: Speci men Type: BLOOD SPECIMEN Ordering Facility: [facility] Address: [address], [place] [address] Result Comment: Jailyn ents receiving either N-Acetylcysteine (NAC) or Metamizole prior to venipuncture, may have falsely depressed results. Performed By: #### 2 4323-8 #### [facility] CLIA [id number] [address] [place] [address] #### 69696-9 #### [facility] CLIA [id number] [address] [place], [place] [address] LAB CLIA [id number] [address] [place] [address] [place] ESTIMATED GLOMERULAR FILTRATION RATE 95 mL/min/1.73m??? Normal >=60 [facility] Comment on above: Order Comment: Speci men Type: BLOOD SPECIMEN Ordering Facility: [facility] Address: [address], [place] [id number] Result Comment: Prudence mated Glomerular Filtration Rate (eGFR) is calculated using the 2020 CKD-EPI creatinine equation. This equation utilizes serum creatinine, sex, and age as parameters. The creatinine assay has traceable calibration to isotope dilution-mass spectrometry. Refer to KDIGO guidelines for clinical interpretation. In patients with unstable renal function, e.g. those with acute kidney injury, the eGFR may not accurately reflect actual GFR. Performed By: #### 2 4323-8 #### [facility] CLIA [id number] [address] [place] [address] #### 69253-3 #### [facility] CLIA [id number] [address] [place], [place] [address] [facility] CLIA [id number] [address] [place] [address] [place] Glucose [Mass/Vol] 133 mg/dL High 70-100 [facility] Comment on above: Order Comment: Jose knowles Type: BLOOD SPECIMEN Ordering Facility: [facility] Address: [address], [place] [address] Result Comment: The [place] Diabetes Association (ADA) provides guidance for cutoff values for fasting glucose and random glucose. The ADA defines fasting as no caloric intake for at least 8 hours. Fasting plasma glucose results between 100 to 125 mg/dL indicate increased risk for diabetes (prediabetes). Fasting plasma glucose results greater than or equal to 126 mg/dL meet the criteria for diagnosis of diabetes. In the absence of unequivocal hyperglycemia, results should be confirmed by repeat testing. In a patient with classic symptoms of hyperglycemia or hyperglycemic crisis, random plasma glucose results greater than or equal to 200 mg/dL meet the criteria for diagnosis of diabetes. Reference: Standards of Medical Care in Diabetes 2016, [place] Diabetes Association. Diabetes Care. 2016.39(Suppl 1). Results may be falsely elevated after the administration of Sulfapyridine. Results may be falsely depressed after the administration of Sulfasalazine. Performed By: #### 2 4323-8 #### [facility] CLIA [id number] [address] [place] [address] #### 36042-9 #### [facility] CLIA [id number] [address] [place] [address] STATES [facility] [place] [facility] CLIA [id number] [address] [place] [address] [place] Potassium [Moles/Vol] 4.5 mmol/L Normal 3.5-5.1 [facility] Comment on above: Order Comment: Speci men Type: BLOOD SPECIMEN Ordering Facility: [facility] Address: [address], [place] [address] Performed By: #### 2 4323-8 #### [facility] CLIA [id number] [address] [place] [address] STATES [facility] #### 14577-9 #### [facility] CLIA [id number] [address] [place] [address] [facility] [place] [facility] CLIA [id number] [address] [place] [address] [place] Protein [Mass/Vol] 7.0 g/dL Normal 6.0-8.5 [facility] Comment on above: Order Comment: Speci men Type: BLOOD SPECIMEN Ordering Facility: [facility] Address: [address], [place] [address] Performed By: #### 2 4323-8 #### [facility] CLIA [id number] [address] [place] [address] [place] #### 96248-9 #### [facility] CLIA [id number] [address] [place], [place] [address] [facility] [place] [facility] CLIA [id number] [facility] [place], [place] [address] [place] [address] Sodium [Moles/Vol] 140 mmol/L Normal 136-145 [facility] Comment on above: Order Comment: Speci men Type: BLOOD SPECIMEN Ordering Facility: [facility] Address: [address], [place] [address] Performed By: #### 2 4323-8 #### [facility] CLIA [id number] [address] [place] [address] #### 17457-6 #### [facility] CLIA [id number] [address] [place], [place] [address] LAB CLIA [id number] [address] [place] [address] STATES [facility] Urea nitrogen [Mass/Vol] 13 mg/dL Normal 7-26 [facility] Comment on above: Order Comment: Speci men Type: BLOOD SPECIMEN Ordering Facility: [facility] Address: [address], [place] [address] Performed By: #### 2 4323-8 #### [facility] CLIA [id number] [address] [place] [address] #### 95998-3 #### [facility] CLIA [id number] [address] [place], [place] [address] [facility] [place] [facility] CLIA [id number] [address] [place] [address] [place] HbA1c (Bld)on 11-11-2022 Average glucose Estimated from glycated hemoglobin (Bld) [Mass/Vol] 146 mg/dL Normal [facility] Comment on above: Order Comment: Speci men Type: BLOOD SPECIMEN Ordering Facility: [facility] Address: [address], [place] [address] Result Comment: eAG: (Estimated average glucose) is a calculated value from HgbA1c and is community relations representative of the average blood glucose level in the last 2-3 month period. Performed By: #### 5 5454-3 #### [facility] CLIA [id number] [address] [place] [address] [facility] HbA1c (Bld) [Mass fraction] 6.7 % High 4.3-6.0 [facility] Comment on above: Order Comment: Jose knowles Type: BLOOD SPECIMEN Ordering Facility: [facility] Address: [address], [place] [address] Result Comment: [facility] Diabetes Association guidelines indicate that patients with HgbA1c in the range 5.7-6.4% are at increased risk for development of diabetes, and intervention by lifestyle modification may be beneficial. HgbA1c greater or equal to 6.5% is considered diagnostic of diabetes. Performed By: #### 5 5454-3 #### [facility] CLIA [id number] [address] [place] [address] Lipid 1996 panelon 3 Cholesterol [Mass/Vol] 176 mg/dL Normal 0-199 [facility] Comment on above: Order Comment: Jose knowles Type: BLOOD SPECIMEN Ordering Facility: [facility] Address: [address], [place] [address] Result Comment: <200 mg/dL, Desirable 200-239 mg/dL, Borderline high >239 mg/dL, High Performed By: #### 2 4323-8 #### [facility] CLIA [id number] [address] [place] [address] #### 13571-3 #### [facility] CLIA [id number] [address] [place] [address] LAB CLIA [id number] [address] [place] [address] [facility] [place] Cholesterol in HDL [Mass/Vol] 48 mg/dL Normal >40 [facility] Comment on above: Order Comment: Jose knowles Type: BLOOD SPECIMEN Ordering Facility: [facility] Address: [address], [place] [address] Result Comment: 40-5 9 mg/dL, Acceptable >59 mg/dL, High: Negative risk factor for coronary heart disease <40 mg/dL, Low: Positive risk factor for coronary heart disease Performed By: #### 2 4323-8 #### [facility] CLIA [id number] [address] [place] [address] #### 12151-4 #### [facility] CLIA [id number] [address] [place], [place] [address] LAB CLIA [id number] [address] Cholesterol in LDL [Mass/Vol] 105 mg/dL Normal 0-129 [facility] Comment on above: Order Comment: Speci men Type: BLOOD SPECIMEN Ordering Facility: [facility] Address: [facility] [address], [place] [address] Result Comment: <100 mg/dL, Optimal 100-129 mg/dL, Near optimal/above optimal 130-159 mg/dL, Borderline high 160-189 mg/dL, High >189 mg/dL, Very high Secondary prevention optimal LDL Cholesterol levels are recommended to be < 70 mg/dL Performed By: #### 2 4323-8 #### [facility] CLIA [id number] [address] [place] [address] #### 03205-6 #### [facility] CLIA [id number] [address] [place], [place] [address] LAB CLIA [id number] [address] Cholesterol in LDL/Cholesterol in HDL [Mass ratio] 2.19 {ratio} Normal <2.54 [facility] Comment on above: Order Comment: Speci men Type: BLOOD SPECIMEN Ordering Facility: [facility] Address: [address], [place] [address] Result Comment: Refe rence: 1. National Cholesterol Education Program ATP III Guideline At-A-Glance Quick Desk Reference: National Heart, Lung, and Blood Center. National Institutes of Health. 2001: NIH Publication No. 01-3305. 2. An International Atherosclerosis Society position paper: global recommendations for the management of dyslipidemia: executive summary, Atherosclerosis. 2014: 232(2):410-413. Performed By: #### 2 4323-8 #### [facility] CLIA [id number] [address] [place] [address] #### 49710-2 #### [facility] CLIA [id number] [address] [place], [place] [address] [place] [facility] CLIA [id number] [address] [place] [address] [place] Cholesterol in VLDL [Mass/Vol] 23 mg/dL Normal <30 [facility] Comment on above: Order Comment: Speci men Type: BLOOD SPECIMEN Ordering Facility: [facility] Address: [facility] [address], [place] [address] Performed By: #### 2 4323-8 #### [facility] CLIA [id number] [address] [place] [address] #### 44682-2 #### [facility] CLIA [id number] [address] [place] [address] [place] [facility] CLIA [id number] [address] [place] [address] [facility] [place] Cholesterol non HDL [Mass/Vol] 128 mg/dL Normal <130 [facility] Comment on above: Order Comment: Speci men Type: BLOOD SPECIMEN Ordering Facility: [facility] Address: [address], [place] [address] Result Comment: <130 mg/dL, Optimal 130-159 mg/dL, Near optimal/above optimal 160-189 mg/dL, Borderline high 190-219 mg/dL, High >219 mg/dL, Very high Secondary prevention optimal non HDL Cholesterol levels are recommended to be <100 mg/dL Performed By: #### 2 4323-8 #### [facility] CLIA [id number] [address] [place], [place] [address] [place] #### 25673-1 #### [facility] CLIA [id number] [address] [place], [place] [address] [facility] CLIA [id number] [address] [place], [place] [address] [place] [address] Cholesterol.total/Ch olesterol in HDL [Mass ratio] 3.67 {ratio} Normal <5.10 [facility] Comment on above: Order Comment: Speci men Type: BLOOD SPECIMEN Ordering Facility: [facility] Address: [address], [place] [address] Performed By: #### 2 4323-8 #### [facility] CLIA [id number] [address] [place] [address] STATES [facility] #### 22734-7 #### [facility] CLIA [id number] [address] [place], [place] [address] LAB CLIA [id number] [facility] FASTING TIME 12 hrs Normal [facility] Comment on above: Order Comment: Speci men Type: BLOOD SPECIMEN Ordering Facility: [facility] Address: [address], [place] [address] Performed By: #### 2 4323-8 #### [facility] CLIA [id number] [address] [place] [address] [place] #### 29248-7 #### [facility] CLIA [id number] [address] [place], [place] [address] [facility] [place] [facility] CLIA [id number] [address] [place] Triglyceride [Mass/Vol] 116 mg/dL Normal 30-149 [facility] Comment on above: Order Comment: Speci men Type: BLOOD SPECIMEN Ordering Facility: [facility] Address: [address], [place] [address] Result Comment: <150 mg/dL, Normal 150-199 mg/dL, Borderline high 200-499 mg/dL, High >499 mg/dL, Very high Patients receiving either N-Acetylcysteine (NAC) or Metamizole prior to venipuncture, may have falsely depressed results. Performed By: #### 2 4323-8 #### [facility] CLIA [id number] [address] [place] [address] [facility] #### 72152-3 #### [facility] CLIA [id number] [address] [place] [address] [facility] CLIA [id number] [address] [place] [address] [facility] TRINI SCREENINGon 09-01-2022 [facility] Vancomycin troughon 06-10-20 22 Vancomycin trough [Mass/Vol] 3.3 ug/mL 5.0-15.0 [facility] Work Phone: Comment on above: VANCOMYCIN STANDARED DRUG THERAPY TROUGH LEVEL: 5.0 - 15.0 mg/L VANCOMYCIN HIGH INTENSITY THERAPY TROUGH LEVEL: 15.0 - 20.0 mg/L High Intensity therapy recommended for serious lifethreatening infections include:- Zvipkflayp-Nbbfiurjpsqs-Kbxpnmuai (Ventilator/Healtcare Associated)-Sepsis PLEASE CONTACT PHARMACY SERVICES (#[phone]) FOR INTERPRETATIONOF RESULTS. Absolute lymphocyte counton 06-08-2022 Lymphocytes Auto (Unsp spec) [#/Vol] 1.66 10*3/uL 0.83-4.51 [facility] Work Phone: Basophil percentageon 2021 Basophils/100 WBC (Bld) 0.3 % 0-1 [facility] Work Phone: Bilirubin [Mass/Vol] 0.60 mg/dL 0.20-1.00 [facility] Work Phone: Comment on above: For patients on eltr ombopag therapy, use of Dimension Simla TBIL is not recommended. Chloride [Moles/Vol] 105 mmol/L 98-107 [facility] Work Phone: Eosinophils/100 WBC (Bld) 0.7 % 0-5 [facility] Work Phone: Glucose [Mass/Vol] 179 mg/dL 74-106 [facility] Work Phone: Comment on above: Fasting Glucose resu lt greater than or equal to 126 mg/dL suggests DIABETES MELLITUS per A.D.A. criteria. Neutrophils (Bld) [#/Vol] 6.4 10*3/uL 2.0-7.7 [facility] Work Phone: Neutrophils/100 WBC (Bld) 72.4 % 47-70 [facility] Work Phone: Potassium [Moles/Vol] 3.5 mmol/L 3.5-5.1 [facility] Work Phone: Protein [Mass/Vol] 6.8 g/dL 6.4-8.2 [facility] Work Phone: Sodium [Moles/Vol] 137 mmol/L 136-145 [facility] Work Phone: WBC (Bld) [#/Vol] 8.9 10*3/uL 4.4-11.0 [facility] Work Phone: Blood erythrocytes count (nu mber/volume)on 06-08-2022 RBC (Bld) [#/Vol] 4.38 10*6/uL 4.2-5.4 [facility] Work Phone: [phone] Blood hemoglobin measurement (mass/volume)on 06-08-2022 Hemoglobin (Bld) [Mass/Vol] 13.2 g/dL 12.0-15.0 [facility] Work Phone: [phone] Blood lymphocytes/100 leukoc yteson 06-08-2022 Lymphocytes/100 WBC (Bld) 18.7 % 19-41 [facility] Work Phone: Blood monocytes/100 leukocyt eson 06-08-2022 Monocytes/100 WBC (Bld) 7.7 % 0-10 [facility] Work Phone: Blood platelet mean volumeon 06-08-2022 Platelet mean volume (Bld) [Entitic vol] 9.1 fL 6.2-12.0 [facility] Work Phone: Determination of erythrocyte mean corpuscular volume (MCV)on 06-08-2022 MCV (RBC) [Entitic vol] 91.8 fL 81-99 [facility] Work Phone: Hematocrit Auto (Bld) [Volum e fraction]on 06-08-2022 Hematocrit (Bld) [Volume fraction] 40.2 % 37-47 [facility] Work Phone: Laboratory - Chemistry and C hemistry - challengeon 06-08-2022 ALP [Catalytic activity/Vol] 129 U/L 45-117 [facility] Work Phone: ALT [Catalytic activity/Vol] 22 U/L 13-56 [facility] Work Phone: CO2 [Moles/Vol] 26.0 mmol/L 21.0-32.0 [facility] Work Phone: Globulin (S) [Mass/Vol] 3.6 g/dL 2.2-4.2 [facility] Work Phone: Urea nitrogen/Creatinine [Mass ratio] 13.2 mg/mg 10-20 [facility] Work Phone: Laboratory - Hematology and Cell countson 06-08-2022 Erythrocyte distribution width (RBC) [Entitic vol] 44.7 fL 35.1-43.9 [facility] Work Phone: Erythrocyte distribution width (RBC) [Ratio] 13.3 % 11.6-14.6 [facility] Work Phone: Immature granulocytes/100 WBC (Bld) 0.200 % 0.0-0.9 [facility] Work Phone: Comment on above: IG% - Immature Granu locytes (promyelocytes, myelocytes and metamyelocytes) > 1% indicates that a LEFT SHIFT is Present. MCH (RBC) [Entitic mass] 30.1 pg 27.0-32.0 [facility] Work Phone: Nucleated RBC/100 WBC (Bld) [Ratio] 0 % 0-5 [facility] Work Phone: MCHC Auto (RBC) [Mass/Vol]on 06-08-2022 MCHC (RBC) [Mass/Vol] 32.8 g/dL 32-36 [facility] Work Phone: No Panel Informationon 06-08 Estimated Creatinine Clearance Calc 34.38 ml/min [facility] Work Phone: Estimated GFR (MDRD) Amer 123 mL/min >60 [facility] Work Phone: Comment on above: GFR Calc Estimated GFR (MDRD) Non-Af Amer 102 mL/min >60 [facility] Work Phone: Comment on above: Non- GFR Calc Platelets bldon 06-08-2022 Platelets (Bld) [#/Vol] 314 10*3/uL 150-450 [facility] Work Phone: Serum or plasma albumin kelly urement (mass/volume)on 06-08-2022 Albumin [Mass/Vol] 3.2 g/dL 3.2-5.0 [facility] Work Phone: Serum or plasma albumin/glob ulin mass ratioon 06-08-2022 Albumin/Globulin [Mass ratio] 0.9 {ratio} 0.9-2.4 [facility] Work Phone: Serum or plasma calcium kelly urement (mass/volume)on 06-08-2022 Calcium [Mass/Vol] 7.7 mg/dL 8.5-10.1 [facility] Work Phone: Serum or plasma creatinine m easurement (mass/volume)on 06-08-2022 Creatinine [Mass/Vol] 0.61 mg/dL 0.55-1.02 [facility] Work Phone: Comment on above: The validity of the calculated GFR & GFRAA in patients over 70 years has not been determined. Clinical correlation is essential. Serum or plasma urea nitroge n measurement (mass/volume)on 06-08-2022 Urea nitrogen [Mass/Vol] 8 mg/dL 7-18 [facility] Work Phone: Thin prep Papanicolaou smear with manual screeningon 06-08-2022 Thin prep Papanicolaou smear with manual screening 21 U/L 15-37 [facility] Work Phone: Thin prep Papanicolaou smear with manual screening 6 5-15 [facility] Work Phone: Absolute lymphocyte counton 06-07-2022 Lymphocytes Auto (Unsp spec) [#/Vol] 1.50 10*3/uL 0.83-4.51 [facility] Work Phone: Basophil percentageon 2021 Basophils/100 WBC (Bld) 0.6 % 0-1 [facility] Work Phone: Chloride [Moles/Vol] 106 mmol/L 98-107 [facility] Work Phone: [phone] Eosinophils/100 WBC (Bld) 2.0 % 0-5 [facility] Work Phone: Glucose [Mass/Vol] 122 mg/dL 74-106 [facility] Work Phone: Comment on above: Fasting Glucose resu lt from 100 to 125 mg/dL suggests IMPAIRED HOMEOSTASIS per A.D.A. criteria. Neutrophils (Bld) [#/Vol] 4.6 10*3/uL 2.0-7.7 [facility] Work Phone: Neutrophils/100 WBC (Bld) 65.0 % 47-70 [facility] Work Phone: [phone] Potassium [Moles/Vol] 3.9 mmol/L 3.5-5.1 [facility] Work Phone: Sodium [Moles/Vol] 137 mmol/L 136-145 [facility] Work Phone: [phone] WBC (Bld) [#/Vol] 7.0 10*3/uL 4.4-11.0 [facility] Work Phone: Blood erythrocytes count (nu mber/volume)on 06-07-2022 RBC (Bld) [#/Vol] 4.42 10*6/uL 4.2-5.4 [facility] Work Phone: Blood hemoglobin measurement (mass/volume)on 06-07-2022 Hemoglobin (Bld) [Mass/Vol] 13.5 g/dL 12.0-15.0 [facility] Work Phone: Blood lymphocytes/100 leukoc yteson 06-07-2022 Lymphocytes/100 WBC (Bld) 21.3 % 19-41 [facility] Work Phone: Blood monocytes/100 leukocyt eson 06-07-2022 Monocytes/100 WBC (Bld) 10.8 % 0-10 [facility] Work Phone: Blood platelet mean volumeon 06-07-2022 Platelet mean volume (Bld) [Entitic vol] 8.9 fL 6.2-12.0 [facility] Work Phone: Determination of erythrocyte mean corpuscular volume (MCV)on 06-07-2022 MCV (RBC) [Entitic vol] 91.2 fL 81-99 [facility] Work Phone: Hematocrit Auto (Bld) [Volum e fraction]on 06-07-2022 Hematocrit (Bld) [Volume fraction] 40.3 % 37-47 [facility] Work Phone: Laboratory - Chemistry and C hemistry - challengeon 06-07-2022 CO2 [Moles/Vol] 29.0 mmol/L 21.0-32.0 [facility] Work Phone: Urea nitrogen/Creatinine [Mass ratio] 24.7 mg/mg 10-20 [facility] Work Phone: Laboratory - Hematology and Cell countson 06-07-2022 Erythrocyte distribution width (RBC) [Entitic vol] 45.4 fL 35.1-43.9 [facility] Work Phone: Erythrocyte distribution width (RBC) [Ratio] 13.5 % 11.6-14.6 [facility] Work Phone: Immature granulocytes/100 WBC (Bld) 0.300 % 0.0-0.9 [facility] Work Phone: Comment on above: IG% - Immature Granu locytes (promyelocytes, myelocytes and metamyelocytes) > 1% indicates that a LEFT SHIFT is Present. MCH (RBC) [Entitic mass] 30.5 pg 27.0-32.0 [facility] Work Phone: Nucleated RBC/100 WBC (Bld) [Ratio] 0 % 0-5 [facility] Work Phone: MCHC Auto (RBC) [Mass/Vol]on 06-07-2022 MCHC (RBC) [Mass/Vol] 33.5 g/dL 32-36 [facility] Work Phone: No Panel Informationon 06-07 Estimated Creatinine Clearance Calc 34.38 ml/min [facility] Work Phone: Estimated GFR (MDRD) Amer 133 mL/min >60 [facility] Work Phone: Comment on above: GFR Calc Estimated GFR (MDRD) Non-Af Amer 110 mL/min >60 [facility] Work Phone: Comment on above: Non- GFR Calc Platelets bldon 06-07-2022 Platelets (Bld) [#/Vol] 332 10*3/uL 150-450 [facility] Work Phone: Serum or plasma calcium kelly urement (mass/volume)on 06-07-2022 Calcium [Mass/Vol] 8.6 mg/dL 8.5-10.1 [facility] Work Phone: Serum or plasma creatinine m easurement (mass/volume)on 06-07-2022 Creatinine [Mass/Vol] 0.57 mg/dL 0.55-1.02 [facility] Work Phone: Comment on above: The validity of the calculated GFR & GFRAA in patients over 70 years has not been determined. Clinical correlation is essential. Serum or plasma urea nitroge n measurement (mass/volume)on 06-07-2022 Urea nitrogen [Mass/Vol] 14 mg/dL 7-18 [facility] Work Phone: Thin prep Papanicolaou smear with manual screeningon 06-07-2022 Thin prep Papanicolaou smear with manual screening 2 5-15 [facility] Work Phone: Absolute lymphocyte counton 05-17-2022 Lymphocytes Auto (Unsp spec) [#/Vol] 1.60 10*3/uL 0.83-4.51 [facility] Work Phone: Basophil percentageon 2021 Basophil percentage 0-5 SEEN /hpf 0-5 [facility] Work Phone: Basophils/100 WBC (Bld) 0.6 % 0-1 [facility] Work Phone: Chloride [Moles/Vol] 104 mmol/L 98-107 [facility] Work Phone: Eosinophils/100 WBC (Bld) 2.6 % 0-5 [facility] Work Phone: Glucose [Mass/Vol] 117 mg/dL 74-106 [facility] Work Phone: Comment on above: Fasting Glucose resu lt from 100 to 125 mg/dL suggests IMPAIRED HOMEOSTASIS per A.D.A. criteria. Neutrophils (Bld) [#/Vol] 4.4 10*3/uL 2.0-7.7 [facility] Work Phone: Neutrophils/100 WBC (Bld) 64.4 % 47-70 [facility] Work Phone: Potassium [Moles/Vol] 3.9 mmol/L 3.5-5.1 [facility] Work Phone: Sodium [Moles/Vol] 139 mmol/L 136-145 [facility] Work Phone: WBC (Bld) [#/Vol] 6.9 10*3/uL 4.4-11.0 [facility] Work Phone: Bilirubin Test strip Ql (U)o n 05-17-2022 Bilirubin Ql (U) Negative Negative [facility] Work Phone: Blood erythrocytes count (nu mber/volume)on 05-17-2022 RBC (Bld) [#/Vol] 4.41 10*6/uL 4.2-5.4 [facility] Work Phone: Blood hemoglobin measurement (mass/volume)on 05-17-2022 Hemoglobin (Bld) [Mass/Vol] 13.6 g/dL 12.0-15.0 [facility] Work Phone: Blood lymphocytes/100 leukoc yteson 05-17-2022 Lymphocytes/100 WBC (Bld) 23.3 % 19-41 [facility] Work Phone: Blood monocytes/100 leukocyt eson 05-17-2022 Monocytes/100 WBC (Bld) 8.7 % 0-10 [facility] Work Phone: Blood platelet mean volumeon 05-17-2022 Platelet mean volume (Bld) [Entitic vol] 8.8 fL 6.2-12.0 [facility] Work Phone: Determination of erythrocyte mean corpuscular volume (MCV)on 05-17-2022 MCV (RBC) [Entitic vol] 90.5 fL 81-99 [facility] Work Phone: Hematocrit Auto (Bld) [Volum e fraction]on 05-17-2022 Hematocrit (Bld) [Volume fraction] 39.9 % 37-47 [facility] Work Phone: Ketones Test strip Ql (U)on 05-17-2022 Ketones Ql (U) Negative Negative [facility] Work Phone: Laboratory - Chemistry and C hemistry - challengeon 05-17-2022 CO2 [Moles/Vol] 30.0 mmol/L 21.0-32.0 [facility] Work Phone: Urea nitrogen/Creatinine [Mass ratio] 21.2 mg/mg 10-20 [facility] Work Phone: Laboratory - Hematology and Cell countson 05-17-2022 Erythrocyte distribution width (RBC) [Entitic vol] 43.1 fL 35.1-43.9 [facility] Work Phone: Erythrocyte distribution width (RBC) [Ratio] 13.1 % 11.6-14.6 [facility] Work Phone: Immature granulocytes/100 WBC (Bld) 0.400 % 0.0-0.9 [facility] Work Phone: Comment on above: IG% - Immature Granu locytes (promyelocytes, myelocytes and metamyelocytes) > 1% indicates that a LEFT SHIFT is Present. MCH (RBC) [Entitic mass] 30.8 pg 27.0-32.0 [facility] Work Phone: Nucleated RBC/100 WBC (Bld) [Ratio] 0 % 0-5 [facility] Work Phone: MCHC Auto (RBC) [Mass/Vol]on 05-17-2022 MCHC (RBC) [Mass/Vol] 34.1 g/dL 32-36 [facility] Work Phone: Mucus LM Ql (Urine sed)on Mucus Ql (Urine sed) 0 SEEN /hpf [facility] Work Phone: Nitrite Test strip Ql (U)on 05-17-2022 Nitrite Ql (U) Negative Negative [facility] Work Phone: No Panel Informationon 05-17 Estimated Creatinine Clearance Calc 34.38 ml/min [facility] Work Phone: Estimated GFR (MDRD) Amer 148 mL/min >60 [facility] Work Phone: Comment on above: GFR Calc Estimated GFR (MDRD) Non-Af Amer 122 mL/min >60 [facility] Work Phone: Comment on above: Non- GFR Calc Troponin I High Sensitivity 4 pg/mL 3.0-54.0 [facility] Work Phone: Comment on above: Please Note: New [place] t Units and Gender Specific Reference Ranges. For more information see Policy Stat Procedure Simla High Sensitivity Troponin (TNIH) and attachments. Platelets bldon 05-17-2022 Platelets (Bld) [#/Vol] 327 10*3/uL 150-450 [facility] Work Phone: Protein Test strip Ql (U)on 05-17-2022 Protein Ql (U) Negative Negative [facility] Work Phone: Serum or plasma calcium kelly urement (mass/volume)on 05-17-2022 Calcium [Mass/Vol] 8.2 mg/dL 8.5-10.1 [facility] Work Phone: Serum or plasma creatinine m easurement (mass/volume)on 05-17-2022 Creatinine [Mass/Vol] 0.52 mg/dL 0.55-1.02 [facility] Work Phone: Comment on above: The validity of the calculated GFR & GFRAA in patients over 70 years has not been determined. Clinical correlation is essential. Serum or plasma urea nitroge n measurement (mass/volume)on 05-17-2022 Urea nitrogen [Mass/Vol] 11 mg/dL 7-18 [facility] Work Phone: Squamous epithelial cells de tection in urine sediment by light microscopyon 05-17-2022 Epithelial cells.squamous LM Ql (Urine sed) 0-5 SEEN /hpf 5-10 [facility] Work Phone: Thin prep Papanicolaou smear with manual screeningon 05-17-2022 Thin prep Papanicolaou smear with manual screening 5 5-15 [facility] Work Phone: Urine blood detectionon 05-06 RBC Ql (U) Negative Negative [facility] Work Phone: RBC Ql (U) 0 SEEN /hpf 0-5 [facility] Work Phone: Urine clarityon 05-17-2022 Clarity (U) Sl. Cloudy Clear [facility] Work Phone: Urine color determinationon 05-17-2022 Color (U) Yellow Yellow [facility] Work Phone: Urine glucose detectionon Glucose Ql (U) Normal mg/dl Normal [facility] Work Phone: Urine leukocyte esterase det ection by dipstickon 05-17-2022 Leukocyte esterase Test strip Ql (U) 25 /ul Negative [facility] Work Phone: Urine pHon 05-17-2022 pH (U) 8.0 [pH] 5.0 - 8.0 [facility] Work Phone: Urine sediment bacteria coun t by microscopy (number/high power field)on 05-17-2022 Bacteria LM.HPF (Urine sed) [#/Area] 0 /[HPF] None Seen [facility] Work Phone: Urine specific gravity measu rementon 05-17-2022 Specific gravity (U) [Rel density] 1.010 1.002-1.03 0 [facility] Work Phone: Urobilinogen Auto test strip Ql (U)on 05-17-2022 Urobilinogen Ql (U) Normal mg/dl Normal [facility] Work Phone: CMPon 03-10-2022 Albumin [Mass/Vol] 3.6 g/dL Normal 3.2-5.0 [facility] Comment on above: Performed By: #### L 500.96442, L500.38232, L500.27510 #### [facility] [address] [place] [id number] Albumin/Globulin [Mass ratio] 1.2 {ratio} Normal 0.8-2.0 [facility] Comment on above: Performed By: #### L 500.44749, L500.08997, L500.65298 #### [facility] [place] [address] ALK PHOS 97 U/L Normal 45-117 [facility] Comment on above: Performed By: #### L 500.66545, L500.34602, L500.39921 #### [facility] [address] [place] [address] ALT [Catalytic activity/Vol] 24 U/L Normal 13-61 [facility] Comment on above: Result Comment: RESU LTS MAY BE FALSELY DEPRESSED AFTER THE ADMINISTRATION OF SULFASALAZINE AND/OR SULFAPYRIDINE. Performed By: #### L 500.21404, L500.96849, L500.44012 #### [facility] [place] [address] Anion gap [Moles/Vol] 6 mmol/L Normal 5-16 [facility] Comment on above: Performed By: #### L 500.93956, L500.21006, L500.50754 #### [facility] [address] [place] [address] AST [Catalytic activity/Vol] 32 U/L Normal 8-34 [facility] Comment on above: Result Comment: RESU LTS MAY BE FALSELY DEPRESSED AFTER THE ADMINISTRATION OF SULFASALAZINE AND/OR SULFAPYRIDINE. Performed By: #### L 500.79546, L500.50324, L500.71031 #### [facility] [address] [place] [address] BILI TOTAL 0.60 MG/DL Normal 0.2-1.0 [facility] Comment on above: Performed By: #### L 500.80430, L500.91544, L500.11808 #### [facility] [place] [address] Calcium [Mass/Vol] 8.8 mg/dL Normal 8.5-10.5 [facility] Comment on above: Result Comment: NOTE NEW NORMAL RANGE DUE TO REAGENT CHANGE Performed By: #### L 500.11528, L500.49875, L500.51203 #### [facility] [address] [place] [address] Chloride [Moles/Vol] 105 mmol/L Normal 98-107 [facility] Comment on above: Performed By: #### L 500.59716, L500.61180, L500.27790 #### [facility] [address] [place] [address] CO2 [Moles/Vol] 31.0 mmol/L Normal 21-32 [facility] Comment on above: Performed By: #### L 500.71893, L500.02252, L500.30258 #### [facility] [address] [place] [address] Creatinine [Mass/Vol] 0.62 mg/dL Normal 0.510-0.95 0 [facility] Comment on above: Result Comment: Jailyn ents receiving either N-Acetylcysteine (NAC) or Metamizole prior to venipuncture, may have falsely depressed results. Performed By: #### L 500.51532, L500.12867, L500.27364 #### [facility] [address] [place] [address] Globulin (S) [Mass/Vol] 3.0 g/dL Normal 2.2-4.2 [facility] Comment on above: Performed By: #### L 500.59706, L500.19341, L500.73363 #### [facility] [address] [place] [address] Glucose [Mass/Vol] 110 mg/dL High 70-100 [facility] Comment on above: Result Comment: 70-1 00- Normal Fasting; 100-125 Impaired Fasting; greater than 126 on more than one result- Diabetes. ADA guidelines. Results may be falsely elevated after the administration of Sulfapyridine. Results may be falsely depressed after the administration of Sulfasalazine. Performed By: #### L 500.88734, L500.75106, L500.38541 #### [facility] [address] [place], [place] [id number] Potassium [Moles/Vol] 4.0 mmol/L Normal 3.5-5.1 [facility] Comment on above: Performed By: #### L 500.18794, L500.90062, L500.25365 #### [facility] [address] [place], [place] [id number] Protein [Mass/Vol] 6.6 g/dL Normal 6.0-8.5 [facility] Comment on above: Performed By: #### L 500.75965, L500.04350, L500.47317 #### [facility] [address] [place] [address] Sodium [Moles/Vol] 142 mmol/L Normal 136-145 [facility] Comment on above: Performed By: #### L 500.63992, L500.00794, L500.14070 #### [facility] [address] [place], [place] [id number] Urea nitrogen [Mass/Vol] 12 mg/dL Normal 7-26 [facility] Comment on above: Performed By: #### L 500.03769, L500.97635, L500.59544 #### [facility] [address] [place] [address] Urea nitrogen/Creatinine [Mass ratio] 19 mg/mg Normal 15-24 [facility] Comment on above: Performed By: #### L 500.99565, L500.22461, L500.54632 #### [facility] [address] [place], [place] [id number] GFR ESTon 03-10-2022 IF AMER Greater than 60 Normal [facility] Comment on above: Performed By: #### L 500.65179, L500.42900, L500.69594 #### [facility] [address] [place], [place] [id number] IF non-AFR AMER Greater than 60 Normal [facility] Comment on above: Performed By: #### L 500.23728, L500.35095, L500.89855 #### [facility] [place] [address] HGB A1C GLYCOHBon 03-10-2022 HbA1c (Bld) [Mass fraction] 6.6 % High 4.3-6.0 [facility] Comment on above: Performed By: #### L 550.80770 #### [facility] [address] [place] [address] LIPIDon 03-10-2022 CHOL 165 MG/dL Normal 0-199 [facility] Comment on above: Performed By: #### L 500.58522, L500.44435, L500.56908 #### [facility] [address] [place] [address] Cholesterol in HDL [Mass/Vol] 42 mg/dL Normal GREATER THAN 40 [facility] Comment on above: Result Comment: Jailyn ents receiving Metamizole prior to venipuncture, may have falsely depressed results. Performed By: #### L 500.75277, L500.18877, L500.73512 #### [facility] [address] [place] [address] Cholesterol in LDL [Mass/Vol] 103 mg/dL Normal [facility] Comment on above: Result Comment: ___C HOLESTEROL/HDL RATIO RISK___ CHD RISK = Total CHOL LDL HDL (CHOL/HDL) Recommended <200 <130 >40 <3.4 Borderline 200-239 130-159 3.4-4.99 High >240 >160 >5.0 Performed By: #### L 500.85115, L500.92609, L500.42770 #### [facility] [address] [place] [address] Triglyceride [Mass/Vol] 103 mg/dL Normal 30-149 [facility] Comment on above: Result Comment: Jailyn ents receiving either N-Acetylcysteine (NAC) or Metamizole prior to venipuncture, may have falsely depressed results. Performed By: #### L 500.28033, L500.90726, L500.58395 #### [facility] [address] [place] [address] UR MICROALB [facility] 03-10-2022 Creatinine [Mass/Vol] 172.70 mg/dL Normal 22.00-328. 00 [facility] Comment on above: Performed By: #### L 650.70078 #### [facility] [address] [place], [place] [id number] U ALB/CRE RATIO 11.00 UG/MGCR Normal 0.00-30.00 [facility] Comment on above: Performed By: #### L 650.09098 #### [facility] [address] [place], [place] [id number] UR MICROALB RDM 19.0 MG/L Normal 0.0-19.0 [facility] Comment on above: Performed By: #### L 650.72566 #### [facility] [address] [phone] CT HEAD/BRAIN W/O CONon 04- CT HEAD/BRAIN W/O CON CT HEAD/BRAIN W/O CON Ordering Physician: Den Alexander MD CT SCAN OF THE HEAD WITHOUT CONTRAST Clinical Statement: Headache. TECHNIQUE: Axial scans were obtained through the head without intravenous contrast.. No comparison FINDINGS: Postoperative changes are noted with bilateral deep brain stimulators terminating in the thalamic region with associated artifact. Generalized age related involutional changes with mild prominence of the subarachnoid spaces and ventricular system. No mass effect or shift. No hemorrhage, mass, or acute infarction. Mild chronic small vessel ischemic changes in the supratentorial white matter. No acute osseous abnormalities. The visualized portions of the paranasal sinuses are clear. IMPRESSION: No acute intracranial process. Postoperative changes status post bilateral deep brain stimulator placement. This report was electronically signed by Shaka Velazquez MD 02/19/2022 1:47 PM Reported By: SHAKA VELAZQUEZ M.D. Signed By: SHAKA VELAZQUEZ M.D. Normal [facility] LABORATORYOrdered By: Era Edgar on 02-08-2022 Basophil, Absolute 0.10 103/mcL Invalid Interpretation Code 0.00 - 0.19 10^3/mcL AO Auto Heme SS Basophils/100 WBC (Bld) 1.2 % Invalid Interpretation Code 0.0 - 2.5 % AO Auto Heme SS Calcium [Mass/Vol] 9.1 mg/dL Invalid Interpretation Code 8.4 - 10.2 mg/dL AO ADM SS Chloride [Moles/Vol] 101 mmol/L Invalid Interpretation Code 98 - 107 mmol/L AO ADM SS CO2 [Moles/Vol] 30 mmol/L Invalid Interpretation Code 23 - 31 mmol/L AO ADM SS Creatinine [Mass/Vol] 0.59 mg/dL Invalid Interpretation Code 0.55 - 1.02 mg/dL AO ADM SS Electrolyte Balance 10.0 mEq/L Invalid Interpretation Code 4.0 - 15.0 mEq/L AO ADM SS Eosinophil, Absolute 0.20 103/mcL Invalid Interpretation Code 0.00 - 0.40 10^3/mcL AO Auto Heme SS Eosinophils/100 WBC (Bld) 2.7 % Invalid Interpretation Code 0.0 - 7.0 % AO Auto Heme SS Erythrocyte distribution width (RBC) [Ratio] 13.0 % Invalid Interpretation Code 11.5 - 14.5 % AO Auto Heme SS Glucose [Mass/Vol] 141 mg/dL Invalid Interpretation Code 83 - 110 mg/dL AO ADM SS Hematocrit (Bld) [Volume fraction] 40.0 % Invalid Interpretation Code 37.0 - 47.0 % AO Auto Heme SS Hemoglobin (Bld) [Mass/Vol] 13.2 G/dL Invalid Interpretation Code 12.0 - 16.0 G/dL AO Auto Heme SS Lymphocyte, Absolute 2.30 103/mcL Invalid Interpretation Code 0.77 - 3.85 10^3/mcL AO Auto Heme SS Lymphocytes/100 WBC (Bld) 28.8 % Invalid Interpretation Code 10.0 - 50.0 % AO Auto Heme SS MCH (RBC) [Entitic mass] 29.8 pg Invalid Interpretation Code 27.0 - 31.2 pg AO Auto Heme SS MCHC (RBC) [Mass/Vol] 33.0 G/dL Invalid Interpretation Code 33.0 - 37.0 G/dL AO Auto Heme SS MCV (RBC) [Entitic vol] 90.3 fL Invalid Interpretation Code 80.0 - 94.0 fL AO Auto Heme SS Monocyte, Absolute 0.80 103/mcL Invalid Interpretation Code 0.15 - 1.00 10^3/mcL AO Auto Heme SS Monocytes/100 WBC (Bld) 9.9 % Invalid Interpretation Code 1.7 - 13.0 % AO Auto Heme SS Neutrophil, Absolute 4.50 103/mcL Invalid Interpretation Code 2.85 - 6.16 10^3/mcL AO Auto Heme SS Neutrophils/100 WBC (Bld) 57.4 % Invalid Interpretation Code 37.0 - 80.0 % AO Auto Heme SS Platelet mean volume (Bld) [Entitic vol] 7.0 fL Invalid Interpretation Code 7.4 - 10.4 fL AO Auto Heme SS Platelets (Bld) [#/Vol] 375 103/mcL Invalid Interpretation Code 130 - 400 10^3/mcL AO Auto Heme SS Potassium [Moles/Vol] 3.9 mmol/L Invalid Interpretation Code 3.5 - 5.1 mmol/L AO ADM SS RBC (Bld) [#/Vol] 4.43 106/mcL Invalid Interpretation Code 4.20 - 5.40 10^6/mcL AO Auto Heme SS Sodium [Moles/Vol] 141 mmol/L Invalid Interpretation Code 136 - 145 mmol/L AO ADM SS Urea nitrogen [Mass/Vol] 22 mg/dL Invalid Interpretation Code 7 - 18 mg/dL AO ADM SS Urea nitrogen/Creatinine [Mass ratio] 37 ratio Invalid Interpretation Code 7 - 27 ratio AO ADM SS WBC (Bld) [#/Vol] 7.90 103/mcL Invalid Interpretation Code 4.60 - 10.80 10^3/mcL AO Auto Heme SS LABORATORYOrdered By: SYSTEM SYSTEM on 02-08-2022 GFR 120 ml/min/1.73sqm Invalid Interpretation Code AO Chemistry S GFR Non- 99 ml/min/1.73sqm Invalid Interpretation Code AO Chemistry S LABORATORYOrdered By: Precious Cuellar on 02-03-2022 Basophil, Absolute 0.10 103/mcL Invalid Interpretation Code 0.00 - 0.19 10^3/mcL AO Auto Heme SS Basophils/100 WBC (Bld) 0.6 % Invalid Interpretation Code 0.0 - 2.5 % AO Auto Heme SS Calcium [Mass/Vol] 8.1 mg/dL Invalid Interpretation Code 8.4 - 10.2 mg/dL AO ADM SS Chloride [Moles/Vol] 103 mmol/L Invalid Interpretation Code 98 - 107 mmol/L AO ADM SS CO2 [Moles/Vol] 27 mmol/L Invalid Interpretation Code 23 - 31 mmol/L AO ADM SS Creatinine [Mass/Vol] 0.63 mg/dL Invalid Interpretation Code 0.55 - 1.02 mg/dL AO ADM SS Electrolyte Balance 10.0 mEq/L Invalid Interpretation Code 4.0 - 15.0 mEq/L AO ADM SS Eosinophil, Absolute 0.20 103/mcL Invalid Interpretation Code 0.00 - 0.40 10^3/mcL AO Auto Heme SS Eosinophils/100 WBC (Bld) 2.7 % Invalid Interpretation Code 0.0 - 7.0 % AO Auto Heme SS Erythrocyte distribution width (RBC) [Ratio] 12.8 % Invalid Interpretation Code 11.5 - 14.5 % AO Auto Heme SS Glucose [Mass/Vol] 117 mg/dL Invalid Interpretation Code 83 - 110 mg/dL AO ADM SS Hematocrit (Bld) [Volume fraction] 34.9 % Invalid Interpretation Code 37.0 - 47.0 % AO Auto Heme SS Hemoglobin (Bld) [Mass/Vol] 12.1 G/dL Invalid Interpretation Code 12.0 - 16.0 G/dL AO Auto Heme SS Lymphocyte, Absolute 1.90 103/mcL Invalid Interpretation Code 0.77 - 3.85 10^3/mcL AO Auto Heme SS Lymphocytes/100 WBC (Bld) 21.0 % Invalid Interpretation Code 10.0 - 50.0 % AO Auto Heme SS MCH (RBC) [Entitic mass] 31.2 pg Invalid Interpretation Code 27.0 - 31.2 pg AO Auto Heme SS MCHC (RBC) [Mass/Vol] 34.8 G/dL Invalid Interpretation Code 33.0 - 37.0 G/dL AO Auto Heme SS MCV (RBC) [Entitic vol] 89.5 fL Invalid Interpretation Code 80.0 - 94.0 fL AO Auto Heme SS Monocyte, Absolute 0.90 103/mcL Invalid Interpretation Code 0.15 - 1.00 10^3/mcL AO Auto Heme SS Monocytes/100 WBC (Bld) 9.7 % Invalid Interpretation Code 1.7 - 13.0 % AO Auto Heme SS Neutrophil, Absolute 5.80 103/mcL Invalid Interpretation Code 2.85 - 6.16 10^3/mcL AO Auto Heme SS Neutrophils/100 WBC (Bld) 66.0 % Invalid Interpretation Code 37.0 - 80.0 % AO Auto Heme SS Platelet mean volume (Bld) [Entitic vol] 7.5 fL Invalid Interpretation Code 7.4 - 10.4 fL AO Auto Heme SS Platelets (Bld) [#/Vol] 269 103/mcL Invalid Interpretation Code 130 - 400 10^3/mcL AO Auto Heme SS Potassium [Moles/Vol] 3.4 mmol/L Invalid Interpretation Code 3.5 - 5.1 mmol/L AO ADM SS RBC (Bld) [#/Vol] 3.90 106/mcL Invalid Interpretation Code 4.20 - 5.40 10^6/mcL AO Auto Heme SS Sodium [Moles/Vol] 140 mmol/L Invalid Interpretation Code 136 - 145 mmol/L AO ADM SS Urea nitrogen [Mass/Vol] 11 mg/dL Invalid Interpretation Code 7 - 18 mg/dL AO ADM SS Urea nitrogen/Creatinine [Mass ratio] 17 ratio Invalid Interpretation Code 7 - 27 ratio AO ADM SS WBC (Bld) [#/Vol] 8.80 103/mcL Invalid Interpretation Code 4.60 - 10.80 10^3/mcL AO Auto Heme SS LABORATORYOrdered By: SYSTEM SYSTEM on 02-03-2022 GFR 111 ml/min/1.73sqm Invalid Interpretation Code AO Chemistry S GFR Non- 92 ml/min/1.73sqm Invalid Interpretation Code AO Chemistry S LABORATORYOrdered By: Mattie Tee on 02-02-2022 Basophil, Absolute 0.00 103/mcL Invalid Interpretation Code 0.00 - 0.19 10^3/mcL AO Auto Heme SS Basophils/100 WBC (Bld) 0.5 % Invalid Interpretation Code 0.0 - 2.5 % AO Auto Heme SS Eosinophil, Absolute 0.20 103/mcL Invalid Interpretation Code 0.00 - 0.40 10^3/mcL AO Auto Heme SS Eosinophils/100 WBC (Bld) 1.8 % Invalid Interpretation Code 0.0 - 7.0 % AO Auto Heme SS Erythrocyte distribution width (RBC) [Ratio] 13.2 % Invalid Interpretation Code 11.5 - 14.5 % AO Auto Heme SS Hematocrit (Bld) [Volume fraction] 36.2 % Invalid Interpretation Code 37.0 - 47.0 % AO Auto Heme SS Hemoglobin (Bld) [Mass/Vol] 12.4 G/dL Invalid Interpretation Code 12.0 - 16.0 G/dL AO Auto Heme SS Lymphocyte, Absolute 1.30 103/mcL Invalid Interpretation Code 0.77 - 3.85 10^3/mcL AO Auto Heme SS Lymphocytes/100 WBC (Bld) 15.2 % Invalid Interpretation Code 10.0 - 50.0 % AO Auto Heme SS MCH (RBC) [Entitic mass] 30.7 pg Invalid Interpretation Code 27.0 - 31.2 pg AO Auto Heme SS MCHC (RBC) [Mass/Vol] 34.2 G/dL Invalid Interpretation Code 33.0 - 37.0 G/dL AO Auto Heme SS MCV (RBC) [Entitic vol] 89.8 fL Invalid Interpretation Code 80.0 - 94.0 fL AO Auto Heme SS Monocyte, Absolute 0.80 103/mcL Invalid Interpretation Code 0.15 - 1.00 10^3/mcL AO Auto Heme SS Monocytes/100 WBC (Bld) 9.5 % Invalid Interpretation Code 1.7 - 13.0 % AO Auto Heme SS Neutrophil, Absolute 6.00 103/mcL Invalid Interpretation Code 2.85 - 6.16 10^3/mcL AO Auto Heme SS Neutrophils/100 WBC (Bld) 73.0 % Invalid Interpretation Code 37.0 - 80.0 % AO Auto Heme SS Platelet mean volume (Bld) [Entitic vol] 7.7 fL Invalid Interpretation Code 7.4 - 10.4 fL AO Auto Heme SS Platelets (Bld) [#/Vol] 292 103/mcL Invalid Interpretation Code 130 - 400 10^3/mcL AO Auto Heme SS RBC (Bld) [#/Vol] 4.03 106/mcL Invalid Interpretation Code 4.20 - 5.40 10^6/mcL AO Auto Heme SS WBC (Bld) [#/Vol] 8.30 103/mcL Invalid Interpretation Code 4.60 - 10.80 10^3/mcL AO Auto Heme SS LABORATORYOrdered By: Precious Cuellar on 02-02-2022 Calcium [Mass/Vol] 8.1 mg/dL Invalid Interpretation Code 8.4 - 10.2 mg/dL AO ADM SS Chloride [Moles/Vol] 103 mmol/L Invalid Interpretation Code 98 - 107 mmol/L AO ADM SS CO2 [Moles/Vol] 24 mmol/L Invalid Interpretation Code 23 - 31 mmol/L AO ADM SS Creatinine [Mass/Vol] 0.60 mg/dL Invalid Interpretation Code 0.55 - 1.02 mg/dL AO ADM SS Electrolyte Balance 13.0 mEq/L Invalid Interpretation Code 4.0 - 15.0 mEq/L AO ADM SS Glucose [Mass/Vol] 124 mg/dL Invalid Interpretation Code 83 - 110 mg/dL AO ADM SS Potassium [Moles/Vol] 3.7 mmol/L Invalid Interpretation Code 3.5 - 5.1 mmol/L AO ADM SS Sodium [Moles/Vol] 140 mmol/L Invalid Interpretation Code 136 - 145 mmol/L AO ADM SS Urea nitrogen [Mass/Vol] 8 mg/dL Invalid Interpretation Code 7 - 18 mg/dL AO ADM SS Urea nitrogen/Creatinine [Mass ratio] 13 ratio Invalid Interpretation Code 7 - 27 ratio AO ADM SS LABORATORYOrdered By: SYSTEM SYSTEM on 02-02-2022 GFR 118 ml/min/1.73sqm Invalid Interpretation Code AO Chemistry S GFR Non- 97 ml/min/1.73sqm Invalid Interpretation Code AO Chemistry S LABORATORYOrdered By: Precious Cuellar on 02-01-2022 Basophil, Absolute 0.00 103/mcL Invalid Interpretation Code 0.00 - 0.19 10^3/mcL AO Auto Heme SS Basophils/100 WBC (Bld) 0.5 % Invalid Interpretation Code 0.0 - 2.5 % AO Auto Heme SS Eosinophil, Absolute 0.10 103/mcL Invalid Interpretation Code 0.00 - 0.40 10^3/mcL AO Auto Heme SS Eosinophils/100 WBC (Bld) 1.6 % Invalid Interpretation Code 0.0 - 7.0 % AO Auto Heme SS Erythrocyte distribution width (RBC) [Ratio] 13.1 % Invalid Interpretation Code 11.5 - 14.5 % AO Auto Heme SS Hematocrit (Bld) [Volume fraction] 37.2 % Invalid Interpretation Code 37.0 - 47.0 % AO Auto Heme SS Hemoglobin (Bld) [Mass/Vol] 12.4 G/dL Invalid Interpretation Code 12.0 - 16.0 G/dL AO Auto Heme SS INR Coag (PPP) [Relative time] 1.0 {INR} Invalid Interpretation Code 0.9 - 1.2 ratio AO Coag SS Lymphocyte, Absolute 1.90 103/mcL Invalid Interpretation Code 0.77 - 3.85 10^3/mcL AO Auto Heme SS Lymphocytes/100 WBC (Bld) 20.9 % Invalid Interpretation Code 10.0 - 50.0 % AO Auto Heme SS MCH (RBC) [Entitic mass] 30.0 pg Invalid Interpretation Code 27.0 - 31.2 pg AO Auto Heme SS MCHC (RBC) [Mass/Vol] 33.2 G/dL Invalid Interpretation Code 33.0 - 37.0 G/dL AO Auto Heme SS MCV (RBC) [Entitic vol] 90.2 fL Invalid Interpretation Code 80.0 - 94.0 fL AO Auto Heme SS Monocyte, Absolute 0.90 103/mcL Invalid Interpretation Code 0.15 - 1.00 10^3/mcL AO Auto Heme SS Monocytes/100 WBC (Bld) 10.0 % Invalid Interpretation Code 1.7 - 13.0 % AO Auto Heme SS Neutrophil, Absolute 6.00 103/mcL Invalid Interpretation Code 2.85 - 6.16 10^3/mcL AO Auto Heme SS Neutrophils/100 WBC (Bld) 67.0 % Invalid Interpretation Code 37.0 - 80.0 % AO Auto Heme SS Platelet mean volume (Bld) [Entitic vol] 7.6 fL Invalid Interpretation Code 7.4 - 10.4 fL AO Auto Heme SS Platelets (Bld) [#/Vol] 277 103/mcL Invalid Interpretation Code 130 - 400 10^3/mcL AO Auto Heme SS PT Coag (PPP) [Time] 11.8 s Invalid Interpretation Code 9.7 - 14.3 seconds AO Coag SS RBC (Bld) [#/Vol] 4.12 106/mcL Invalid Interpretation Code 4.20 - 5.40 10^6/mcL AO Auto Heme SS WBC (Bld) [#/Vol] 8.90 103/mcL Invalid Interpretation Code 4.60 - 10.80 10^3/mcL AO Auto Heme SS LABORATORYOrdered By: Wili Lambert on 02-01-2022 Bili Indirect 0.5 mg/dL Invalid Interpretation Code AO Chemistry S Bilirubin.direct [Mass/Vol] 0.2 mg/dL Invalid Interpretation Code 0.0 - 0.2 mg/dL AO ADM SS Calcium [Mass/Vol] 8.2 mg/dL Invalid Interpretation Code 8.4 - 10.2 mg/dL AO ADM SS Chloride [Moles/Vol] 108 mmol/L Invalid Interpretation Code 98 - 107 mmol/L AO ADM SS CO2 [Moles/Vol] 27 mmol/L Invalid Interpretation Code 23 - 31 mmol/L AO ADM SS Creatinine [Mass/Vol] 0.55 mg/dL Invalid Interpretation Code 0.55 - 1.02 mg/dL AO ADM SS Electrolyte Balance 10.0 mEq/L Invalid Interpretation Code 4.0 - 15.0 mEq/L AO ADM SS Glucose [Mass/Vol] 103 mg/dL Invalid Interpretation Code 83 - 110 mg/dL AO ADM SS Magnesium [Mass/Vol] 2.0 mg/dL Invalid Interpretation Code 1.8 - 2.4 mg/dL AO ADM SS Potassium [Moles/Vol] 4.1 mmol/L Invalid Interpretation Code 3.5 - 5.1 mmol/L AO ADM SS Sodium [Moles/Vol] 145 mmol/L Invalid Interpretation Code 136 - 145 mmol/L AO ADM SS Urea nitrogen [Mass/Vol] 15 mg/dL Invalid Interpretation Code 7 - 18 mg/dL AO ADM SS Urea nitrogen/Creatinine [Mass ratio] 27 ratio Invalid Interpretation Code 7 - 27 ratio AO ADM SS LABORATORYOrdered By: SYSTEM SYSTEM on 02-01-2022 GFR 130 ml/min/1.73sqm Invalid Interpretation Code AO Chemistry S GFR Non- 107 ml/min/1.73sqm Invalid Interpretation Code AO Chemistry S Laboratory - Chemistry and C hemistry - challengeOrdered By: Kamilah Lambert on 02-01-2022 Albumin BCP dye [Mass/Vol] 3.1 G/dL Invalid Interpretation Code 3.4 - 4.8 G/dL AO ADM SS Albumin/Globulin [Mass ratio] 1.0 {ratio} Invalid Interpretation Code 1.1 - 2.5 ratio AO ADM SS ALP [Catalytic activity/Vol] 76 U/L Invalid Interpretation Code 40 - 135 U/L AO ADM SS ALT With P-5'-P [Catalytic activity/Vol] 21 U/L Invalid Interpretation Code 14 - 59 U/L AO ADM SS AST With P-5'-P [Catalytic activity/Vol] 21 U/L Invalid Interpretation Code 10 - 40 U/L AO ADM SS Bilirubin [Mass/Vol] 0.7 mg/dL Invalid Interpretation Code 0.2 - 1.0 mg/dL AO ADM SS Protein [Mass/Vol] 6.1 G/dL Invalid Interpretation Code 6.4 - 8.2 G/dL AO ADM SS No Panel InformationOrdered By: Kamilah Lambert on 02-01-2022 Globulin 3.0 G/dL Invalid Interpretation Code AO ADM SS No Panel Informationon 02-01 Legionella Urine Ag Presumptive negative for L. pneumophila serogroup 1 antigen in urine, suggesting no recent or current infection. Legionnaire's disease cannot be ruled out since other serogroups and species may also cause disease. [facility] Work Phone: LABORATORYOrdered By: Mattie Tee on 01-31-2022 C-Reactive Protein mg/dL Invalid Interpretation Code 0.0 - 0.9 mg/dL AO Chemistry S Fibrin D-dimer DDU (PPP) [Mass/Vol] 4648 ng/mL D-DU Invalid Interpretation Code 0 - 230 ng/mL D-DU AO Coag SS ADMITTED TO INTENSIVE CARE UNIT FOR CONDITION OF INTEREST:FIND:PT:^PA TIENT:ORD: No (3/28/22 9:46 PM) Invalid Interpretation Code AO Auto Urine SS EMPLOYED IN A HEALTHCARE SETTING:FIND:PT:^PAT IENT:ORD: No (01/31/22 9:46 PM) Invalid Interpretation Code AO Auto Urine SS FIRST TEST FOR CONDITION OF INTEREST:FIND:PT:^PA TIENT:ORD: Unknown (01/31/22 9:46 PM) Invalid Interpretation Code AO Auto Urine SS FLUAV RNA ROSCOE+probe Ql (Upper resp) Negative (01/31/22 9:46 PM) Invalid Interpretation Code Negative AO Auto Urine SS FLUBV RNA ROSCOE+probe Ql (Upper resp) Negative (01/31/22 9:46 PM) Invalid Interpretation Code Negative AO Auto Urine SS HAS SYMPTOMS RELATED TO CONDITION OF INTEREST:FIND:PT:^PA TIENT:ORD: No (01/31/22 9:46 PM) Invalid Interpretation Code AO Auto Urine SS Illness or injury onset date and time [id number] Invalid Interpretation Code AO Auto Urine SS Patient was hospitalized because of this condition Yes (01/31/22 9:46 PM) Invalid Interpretation Code AO Auto Urine SS status Not (01/31/22 9:46 PM) Invalid Interpretation Code AO Auto Urine SS RESIDES IN A CONGREGATE CARE SETTING:FIND:PT:^PAT IENT:ORD: No (01/31/22 9:46 PM) Invalid Interpretation Code AO Auto Urine SS RSV RNA ROSCOE+probe Ql (Upper resp) Negative (01/31/22 9:46 PM) Invalid Interpretation Code Negative AO Auto Urine SS SARS-CoV-2 (COVID-19) RNA ROSCOE+probe Ql (Resp) Negative (01/31/22 9:46 PM) Invalid Interpretation Code Negative AO Auto Urine SS SARS-CoV-2 (COVID-19) RNA ROSCOE+probe Ql (Unsp spec) Negative results do not preclude SARS-CoV-2 infection and should not be used as the sole basis for patient management decisions. Negative results must be combined with clinical observations, patient history, and epidemiological information.There is a risk of false negative values resulting from improperly collected, transported, or handled specimens.There is a risk of false negative values due to the presence of sequence variants in the pathogen targets of the assay, procedural errors, amplification inhibitors in specimens, or inadequate numbers of organisms for amplification.MARTHA SARS-CoV-2 Assay is a Real-Time reverse-transcriptase polymerase chain reaction (RT-PCR) based qualitative in vitro diagnostic test intended for the qualitative detection of nucleic acid from the SARS-CoV-2 in nasopharyngeal swab specimens collected from individuals suspected of COVID-19 by their healthcare provider. Testing is limited to laboratories certified under the Clinical Laboratory Improvement Amendments of 1988 (CLIA), 42 U.S.C. 263a, to perform moderate and high complexity tests. Invalid Interpretation Code AO Auto Urine SS LABORATORYOrdered By: Wili Gaspar on 01-31-2022 M. pneumoniae IgM IA Ql (S) Negative (01/31/22 10:19 PM) Invalid Interpretation Code Man Viro/Sero SS LABORATORYOrdered By: Mya Howard on 01-31-2022 MRSA DNA ROSCOE+probe Ql (Unsp spec) Not Detected 1 (01/31/22 10:05 PM) Invalid Interpretation Code Not Detected AH Auto Viro/Sero SS Comment on above: Result Comment: Note s [id number] MRSA PCR Int MRSA DNA not detecte d by Real-Time Polymerase Chain Reaction (PCR). A negative result may be due to intermittent colonization. Colonization may vary depending on patient treatment, patient status, or exposure to high-risk environments.As with all PCR based in vitro diagnostic tests, extremely low levels of targe below the limit of detection of the assay may be detected, but results may not be reproducible. Invalid Interpretation Code Auto Viro/Sero SS LABORATORYOrdered By: Era Edgar on 01-31-2022 aPTT Coag (Bld) [Time] 26.1 s Invalid Interpretation Code 24.8 - 33.3 seconds AO Coag SS Heparin dose (APTT) None Invalid Interpretation Code AO Coag SS INR Coag (PPP) [Relative time] 1.0 {INR} Invalid Interpretation Code 0.9 - 1.2 ratio AO Coag SS PT Coag (PPP) [Time] 11.4 s Invalid Interpretation Code 9.7 - 14.3 seconds AO Coag SS No Panel Informationon 01-31 Microscopic examination of blood, culture Culture has been received in lab and is no growth to date. Routine cultures are held for 5 days. [facility] Work Phone: BMPon 12-18-2021 Anion gap [Moles/Vol] 7 mmol/L Normal 5-16 [facility] Comment on above: Performed By: #### L 500.87633, L500.43269 #### [facility] [place] [address] Calcium [Mass/Vol] 9.3 mg/dL Normal 8.5-10.5 [facility] Comment on above: Result Comment: NOTE NEW NORMAL RANGE DUE TO REAGENT CHANGE Performed By: #### L 500.85970, L500.59234 #### [facility] [address] [place] [address] Chloride [Moles/Vol] 104 mmol/L Normal 98-107 [facility] Comment on above: Performed By: #### L 500.42223, L500.59962 #### [facility] [address] [place] [address] CO2 [Moles/Vol] 31.0 mmol/L Normal 21-32 [facility] Comment on above: Performed By: #### L 500.21764, L500.93419 #### [facility] [address] [place] [address] Creatinine [Mass/Vol] 0.59 mg/dL Normal 0.510-0.95 0 [facility] Comment on above: Result Comment: Jailyn ents receiving either N-Acetylcysteine (NAC) or Metamizole prior to venipuncture, may have falsely depressed results. Performed By: #### L 500.11850, L500.30246 #### [facility] [address] [place], [place] [id number] Glucose [Mass/Vol] 116 mg/dL High 70-100 [facility] Comment on above: Result Comment: 70-1 00- Normal Fasting; 100-125 Impaired Fasting; greater than 126 on more than one result- Diabetes. ADA guidelines. Results may be falsely elevated after the administration of Sulfapyridine. Results may be falsely depressed after the administration of Sulfasalazine. Performed By: #### L 500.45044, L500.94462 #### [facility] [address] [place] [address] Potassium [Moles/Vol] 4.6 mmol/L Normal 3.5-5.1 [facility] Comment on above: Performed By: #### L 500.31039, L500.09732 #### [facility] [address] [place] [address] Sodium [Moles/Vol] 142 mmol/L Normal 136-145 [facility] Comment on above: Performed By: #### L 500.55590, L500.22339 #### [facility] [address] [place] [address] Urea nitrogen [Mass/Vol] 11 mg/dL Normal 7-26 [facility] Comment on above: Performed By: #### L 500.87689, L500.87806 #### [facility] [address] [place] [address] Urea nitrogen/Creatinine [Mass ratio] 19 mg/mg Normal 15-24 [facility] Comment on above: Performed By: #### L 500.62632, L500.56634 #### [facility] [address] [place] [address] CBC W/DIFFon 12-18-2021 BASO ABS 0.10 K/CU MM Normal 0-0.2 [facility] Comment on above: Performed By: #### L 500.10923, L500.91850, L500.05315 #### [facility] [address] [place] [address] Basophils/100 WBC (Bld) 1.1 % Normal 0-2 [facility] Comment on above: Performed By: #### L 500.93894, L500.34757, L500.81296 #### [facility] [address] [place] [address] EOS ABS 0.10 K/CU MM Normal 0-0.5 [facility] Comment on above: Performed By: #### L 500.43448, L500.18957, L500.29546 #### [facility] [address] [place] [address] Eosinophils/100 WBC (Bld) 2.0 % Normal 0-5 [facility] Comment on above: Performed By: #### L 500.58630, L500.05057, L500.58164 #### [facility] [address] [place] [address] Erythrocyte distribution width (RBC) [Ratio] 13.2 % Normal 11-14.5 [facility] Comment on above: Performed By: #### L 500.83990, L500.06901, L500.16824 #### [facility] [address] [place] [address] Hematocrit (Bld) [Volume fraction] 42.8 % Normal 35.0-47.0 [facility] Comment on above: Performed By: #### L 500.98538, L500.88293, L500.72512 #### [facility] [address] [place] [address] Hemoglobin (Bld) [Mass/Vol] 14.1 g/dL Normal 11.5-15.5 [facility] Comment on above: Performed By: #### L 500.06999, L500.87074, L500.83970 #### [facility] [address] [place] [address] IMMATR GRAN ABS 0.00 K/CU MM Normal Less than 2 [facility] Comment on above: Performed By: #### L 500.60762, L500.98652, L500.35570 #### [facility] [address] [place] [address] IMMATURE GRAN % 0.3 % Normal Less than 2 [facility] Comment on above: Performed By: #### L 500.81464, L500.77649, L500.76118 #### [facility] [address] [place] [address] LYMPH ABS 1.80 K/CU MM Normal 0.9-4.4 [facility] Comment on above: Performed By: #### L 500.27971, L500.02694, L500.10362 #### [facility] [address] [place] [address] Lymphocytes/100 WBC (Bld) 28.3 % Normal 20-40 [facility] Comment on above: Performed By: #### L 500.69406, L500.76527, L500.42905 #### [facility] [address] [place] [address] MCHC (RBC) [Mass/Vol] 32.9 g/dL Normal 32.0-36.0 [facility] Comment on above: Performed By: #### L 500.55144, L500.94114, L500.17908 #### [facility] [address] [place] [address] MCV (RBC) [Entitic vol] 93.2 fL Normal 80.0-99.0 [facility] Comment on above: Performed By: #### L 500.43033, L500.83169, L500.32647 #### [facility] [address] [place] [address] MONO ABS 0.60 K/CU MM Normal 0.1-1.1 [facility] Comment on above: Performed By: #### L 500.48324, L500.47485, L500.23234 #### [facility] [address] [place] [address] Monocytes/100 WBC (Bld) 9.6 % Normal 2-10 [facility] Comment on above: Performed By: #### L 500.43221, L500.64636, L500.25575 #### [facility] [address] [place] [address] NEUTROPHIL ABS 3.80 K/CU MM Normal 2.0-8.3 [facility] Comment on above: Performed By: #### L 500.39638, L500.86497, L500.27530 #### [facility] [address] [place] [address] Neutrophils/100 WBC (Bld) 58.7 % Normal 45-75 [facility] Comment on above: Performed By: #### L 500.73816, L500.52817, L500.43720 #### [facility] [address] [place] [address] Nucleated RBC/100 WBC (Bld) [Ratio] 0.0 % Normal Less than 1 [facility] Comment on above: Performed By: #### L 500.46833, L500.90591, L500.22436 #### [facility] [address] [place] [address] Platelet mean volume (Bld) [Entitic vol] 10.2 fL Normal 9.4-12.4 [facility] Comment on above: Performed By: #### L 500.95494, L500.85372, L500.33573 #### [facility] [address] [place] [address] PLT 310 K/CU MM Normal 150-450 [facility] Comment on above: Performed By: #### L 500.45415, L500.49656, L500.48943 #### [facility] [address] [place] [address] RBC 4.59 M/CU MM Normal 3.90-5.30 [facility] Comment on above: Performed By: #### L 500.15479, L500.55832, L500.70109 #### [facility] [place] [address] WBC 6.5 K/CUMM Normal 4.5-11.0 [facility] Comment on above: Performed By: #### L 500.83537, L500.56039, L500.01377 #### [facility] [address] [place] [address] GFR ESTon 12-18-2021 IF AMER Greater than 60 Normal [facility] Comment on above: Performed By: #### L 500.88652, L500.21050 #### [facility] [address] [place] [address] IF non-AFR AMER Greater than 60 Normal [facility] Comment on above: Performed By: #### L 500.49025, L500.00744 #### [facility] [address] [place] [address] HGB A1C GLYCOHBon 12-18-2021 HbA1c (Bld) [Mass fraction] 6.3 % High 4.3-6.0 [facility] Comment on above: Performed By: #### L 500.01193, L500.77460, L500.24538 #### [facility] [address] [place], [place] [id number] CBC W/DIFFon 08-30-2021 BASO ABS 0.10 K/CU MM Normal 0-0.2 [facility] Comment on above: Performed By: #### L 200.35845 #### [facility] [address] [place] [address] Basophils/100 WBC (Bld) 1.3 % Normal 0-2 [facility] Comment on above: Performed By: #### L 200.32378 #### [facility] [address] [place] [address] EOS ABS 0.20 K/CU MM Normal 0-0.5 [facility] Comment on above: Performed By: #### L 200.19967 #### [facility] [address] [place] [address] Eosinophils/100 WBC (Bld) 2.6 % Normal 0-5 [facility] Comment on above: Performed By: #### L 200.75089 #### [facility] [address] [place] [address] Erythrocyte distribution width (RBC) [Ratio] 12.9 % Normal 11-14.5 [facility] Comment on above: Performed By: #### L 200.41368 #### [facility] [address] [place] [address] Hematocrit (Bld) [Volume fraction] 41.2 % Normal 35.0-47.0 [facility] Comment on above: Performed By: #### L 200.39724 #### [facility] [address] [place] [address] Hemoglobin (Bld) [Mass/Vol] 13.8 g/dL Normal 11.5-15.5 [facility] Comment on above: Performed By: #### L 200.71846 #### [facility] [address] [place] [address] IMMATR GRAN ABS 0.00 K/CU MM Normal Less than 2 [facility] Comment on above: Performed By: #### L 200.30721 #### [facility] [address] [place] [address] IMMATURE GRAN % 0.3 % Normal Less than 2 [facility] Comment on above: Performed By: #### L 200.39679 #### [facility] [address] [place] [address] LYMPH ABS 1.80 K/CU MM Normal 0.9-4.4 [facility] Comment on above: Performed By: #### L 200.96887 #### [facility] [place] [id number] Lymphocytes/100 WBC (Bld) 29.3 % Normal 20-40 [facility] Comment on above: Performed By: #### L 200.82756 #### [facility] [address] [place] [address] MCHC (RBC) [Mass/Vol] 33.5 g/dL Normal 32.0-36.0 [facility] Comment on above: Performed By: #### L 200.68481 #### [facility] [address] [place] [address] MCV (RBC) [Entitic vol] 92.6 fL Normal 80.0-99.0 [facility] Comment on above: Performed By: #### L 200.32086 #### [facility] [address] [place] [address] MONO ABS 0.60 K/CU MM Normal 0.1-1.1 [facility] Comment on above: Performed By: #### L 200.80194 #### [facility] [address] [place] [address] Monocytes/100 WBC (Bld) 9.5 % Normal 2-10 [facility] Comment on above: Performed By: #### L 200.26479 #### [facility] [address] [place] [address] NEUTROPHIL ABS 3.50 K/CU MM Normal 2.0-8.3 [facility] Comment on above: Performed By: #### L 200.35767 #### [facility] [address] [place] [address] Neutrophils/100 WBC (Bld) 57.0 % Normal 45-75 [facility] Comment on above: Performed By: #### L 200.24771 #### [facility] [address] [place] [address] Nucleated RBC/100 WBC (Bld) [Ratio] 0.0 % Normal Less than 1 [facility] Comment on above: Performed By: #### L 200.68529 #### [facility] [address] [place] [address] Platelet mean volume (Bld) [Entitic vol] 9.7 fL Normal 9.4-12.4 [facility] Comment on above: Performed By: #### L 200.89648 #### [facility] [address] [place], [place] [id number] PLT 297 K/CU MM Normal 150-450 [facility] Comment on above: Performed By: #### L 200.29132 #### [facility] [address] [place] [address] RBC 4.45 M/CU MM Normal 3.90-5.30 [facility] Comment on above: Performed By: #### L 200.67723 #### [facility] [address] [place] [address] WBC 6.1 K/CUMM Normal 4.5-11.0 [facility] Comment on above: Performed By: #### L 200.82960 #### [facility] [address] [place] [address] CMPon 08-30-2021 Albumin [Mass/Vol] 3.7 g/dL Normal 3.2-5.0 [facility] Comment on above: Performed By: #### L 500.75939, L500.42039, L500.04851 #### [facility] [address] [place] [address] Albumin/Globulin [Mass ratio] 1.2 {ratio} Normal 0.8-2.0 [facility] Comment on above: Performed By: #### L 500.38941, L500.77100, L500.97949 #### [facility] [address] [place], [place] [address] ALK PHOS 93 U/L Normal 45-117 [facility] Comment on above: Performed By: #### L 500.01348, L500.92660, L500.51201 #### [facility] [address] [place] [address] ALT [Catalytic activity/Vol] 16 U/L Normal 13-61 [facility] Comment on above: Result Comment: RESU LTS MAY BE FALSELY DEPRESSED AFTER THE ADMINISTRATION OF SULFASALAZINE AND/OR SULFAPYRIDINE. Performed By: #### L 500.58569, L500.10371, L500.89336 #### [facility] [address] [place] [address] Anion gap [Moles/Vol] 5 mmol/L Normal 5-16 [facility] Comment on above: Performed By: #### L 500.09303, L500.91813, L500.45199 #### [facility] [address] [place] [address] AST [Catalytic activity/Vol] 24 U/L Normal 8-34 [facility] Comment on above: Result Comment: RESU LTS MAY BE FALSELY DEPRESSED AFTER THE ADMINISTRATION OF SULFASALAZINE AND/OR SULFAPYRIDINE. Performed By: #### L 500.59338, L500.86088, L500.57715 #### [facility] [address] [place] [address] BILI TOTAL 0.70 MG/DL Normal 0.2-1.0 [facility] Comment on above: Performed By: #### L 500.33286, L500.79045, L500.71249 #### [facility] [address] [place] [address] Calcium [Mass/Vol] 9.2 mg/dL Normal 8.5-10.5 [facility] Comment on above: Result Comment: NOTE NEW NORMAL RANGE DUE TO REAGENT CHANGE Performed By: #### L 500.25108, L500.29682, L500.08083 #### [facility] [address] [place] [address] Chloride [Moles/Vol] 102 mmol/L Normal 98-107 [facility] Comment on above: Performed By: #### L 500.04929, L500.21386, L500.34603 #### [facility] [address] [place] [address] CO2 [Moles/Vol] 31.0 mmol/L Normal 21-32 [facility] Comment on above: Performed By: #### L 500.69011, L500.35370, L500.85970 #### [facility] [address] [place] [address] Creatinine [Mass/Vol] 0.53 mg/dL Normal 0.510-0.95 0 [facility] Comment on above: Result Comment: Jailyn ents receiving either N-Acetylcysteine (NAC) or Metamizole prior to venipuncture, may have falsely depressed results. Performed By: #### L 500.98303, L500.12825, L500.49152 #### [facility] [address] [place] [address] Globulin (S) [Mass/Vol] 3.1 g/dL Normal 2.2-4.2 [facility] Comment on above: Performed By: #### L 500.88928, L500.36913, L500.78361 #### [facility] [address] [place] [address] Glucose [Mass/Vol] 121 mg/dL High 70-100 [facility] Comment on above: Result Comment: 70-1 00- Normal Fasting; 100-125 Impaired Fasting; greater than 126 on more than one result- Diabetes. ADA guidelines. Results may be falsely elevated after the administration of Sulfapyridine. Results may be falsely depressed after the administration of Sulfasalazine. Performed By: #### L 500.21889, L500.99754, L500.27100 #### [facility] [place] [address] Potassium [Moles/Vol] 4.1 mmol/L Normal 3.5-5.1 [facility] Comment on above: Performed By: #### L 500.00368, L500.30528, L500.25592 #### [facility] [address] [place] [address] Protein [Mass/Vol] 6.8 g/dL Normal 6.0-8.5 [facility] Comment on above: Performed By: #### L 500.80030, L500.87840, L500.25535 #### [facility] [address] [place] [address] Sodium [Moles/Vol] 138 mmol/L Normal 136-145 [facility] Comment on above: Performed By: #### L 500.87088, L500.19998, L500.76275 #### [facility] [address] [place] [address] Urea nitrogen [Mass/Vol] 13 mg/dL Normal 7-26 [facility] Comment on above: Performed By: #### L 500.10496, L500.35308, L500.80070 #### [facility] [address] [place] [address] Urea nitrogen/Creatinine [Mass ratio] 24 mg/mg Normal 15-24 [facility] Comment on above: Performed By: #### L 500.36911, L500.44755, L500.25224 #### [facility] [address] [place] [address]205 GFR ESTon 08-30-2021 IF AMER Greater than 60 Normal [facility] Comment on above: Performed By: #### L 500.59441, L500.53810, L500.08562 #### [facility] [address] [place] [address] IF non-AFR AMER Greater than 60 Normal [facility] Comment on above: Performed By: #### L 500.83175, L500.37824, L500.10893 #### [facility] [address] [place] [address] LIPIDon 08-30-2021 CHOL 179 MG/dL Normal 0-199 [facility] Comment on above: Performed By: #### L 500.74236, L500.45189, L500.11110 #### [facility] [address] [place] [address] Cholesterol in HDL [Mass/Vol] 46 mg/dL Normal GREATER THAN 40 [facility] Comment on above: Result Comment: Jailyn ents receiving Metamizole prior to venipuncture, may have falsely depressed results. Performed By: #### L 500.83228, L500.36122, L500.76462 #### [facility] [address] [place] [address] Cholesterol in LDL [Mass/Vol] 107 mg/dL Normal [facility] Comment on above: Result Comment: ___C HOLESTEROL/HDL RATIO RISK___ CHD RISK = Total CHOL LDL HDL (CHOL/HDL) Recommended <200 <130 >40 <3.4 Borderline 200-239 130-159 3.4-4.99 High >240 >160 >5.0 Performed By: #### L 500.83108, L500.19410, L500.12853 #### [facility] [place] [id number] Triglyceride [Mass/Vol] 131 mg/dL Normal 30-149 [facility] Comment on above: Result Comment: Jailyn ents receiving either N-Acetylcysteine (NAC) or Metamizole prior to venipuncture, may have falsely depressed results. Performed By: #### L 500.98303, L500.92094, L500.67480 #### [facility] [place] [address] DIGITAL MAMMO SCREENINGon DIGITAL MAMMO SCREENING BILATERAL DIGITAL SCREENING MAMMOGRAM WITH CAD: 08/23/2021 Ordering Physician: Den Alexander CLINICAL: Routine screening. Comparison is made to exams dated: 03/26/2020 mammogram, 03/13/2020 mammogram, and 02/20/2019 mammogram - [facility]. There are scattered fibroglandular elements in both breasts that could obscure a lesion on mammography. Current study was also evaluated with a Computer Aided Detection (CAD) system. There are benign vascular calcifications both breasts. There also are benign calcifications right breast. No significant masses, calcifications, or other findings are seen in either breast. There has been no significant interval change. IMPRESSION: BENIGN There is no mammographic evidence of malignancy. A 1 year screening mammogram is recommended. The false-negative rate of mammography is approximately 10%. Management of a palpable abnormality must be based upon clinical grounds. Glenny Velazquez M.D. ear/penrad:08/23/2021 10:36:00 Telegraph Lineman: Monik FALCON)(Ted), [facility] letter sent: Mammography Normal BI-RADS: 2 Benign Reported By: GLENNY VELAZQUEZ M.D. Signed By: GLENNY VELAZQUEZ M.D. [facility] Established Visit (Gastroent erology)on 06-15-2020 Established Visit (Gastroenterology) Diagnoses/Problems Assessed Chronic GERD (530.81) (K21.9) Dysphagia (787.20) (R13.10) Orders Dysphagia Xray Esophagram; Status:Hold For - Scheduling; Requested for:[id number]; Perform:[facility]; Due:13Sep2020;Ordered; For:Dysphagia; Ordered By:Patricia Naranjo; Radiologist to Determine Optimal Study : Y What are the patient's signs and symptoms? : Dysphagia, globus sensation SocHx: Former smoker Tobacco Use Screening; Status:Complete; Done: [id number] Perform:Not Applicable;Ordered; For:SocHx: Former smoker; Ordered By:Kirstin Carter; Unlinked Stop: CoQ10 200 MG Oral Capsule Dispense: 0 Days ; #: Sufficient; Refill: 0; WALT = N; Record; Last Updated By: Kirstin Carter; 06/15/2020 12:40:51 PM Patient Discussion/Summary 1. Obtain barium esophagram. Discussed possible EGD pending X-ray. 2. Continue pantoprazole 20 mg daily for GERD. 3. Lifestyle changes to help alleviate heartburn/reflux were discussed. These include avoiding spicy and greasy foods, tomato based products, mint and caffeine. Alcohol and smoking should be avoided. Patient should keep at least 3 hours between eating and going to sleep. Being of a normal weight helps decrease heartburn symptoms. Chief Complaint A telephone visit (audio only) between the patient (at the originating site) and the provider (at the distant site) was utilized to provide this telehealth service. Verbal consent was requested and obtained from TAMAR PRADO on this date, 06/15/2020 01:00 PM , for a telehealth visit. Difficulty swallowing History of Present [id number] female spoken to over telephone regarding an approximate one-month history of difficulty swallowing. Patient discontinued her pantoprazole one month ago and began experiencing a nonproductive cough, intermittent choking on liquids, and difficulty swallowing meat and bread within one week. She was not having typical heartburn, regurgitation, or dyspepsia. She restarted pantoprazole 1 week ago and states her cough has improved however her dysphagia persists but resolves by drinking water. She also reports a phlegm sensation in the back of her throat. She is always slightly hoarse due to her Parkinson's but this continues to be slightly exasperated. She has had a decrease in appetite since her Parkinson's diagnosis and she tries to eat high protein and drinks two Ensure daily. She denies unintentional weight loss. She has a history of a Schatzki ring dilated in 2011. Review of Systems Const: Denies fatigue, fever and weight loss. CV: Denies chest pain, pacemaker, palpitations and valvular heart disease. Resp: Denies cough, sleep apnea, SOB and snoring. GI: Denies symptoms other than stated above. Musculo: Denies joint pain and muscle pain. Skin: Denies hives and rash. Neuro: Reports Parkinson's. Had reaction to Carvidopa/Levadopa. Denies seizures and stroke. Psych: Reports anxiety and depression. Endocrine: Reports thyroid disease. Denies intolerance to cold, hot flashes and impaired glucose tolerance. Wale/Lymph: Denies anemia, blood transfusions, chemotherapy, enlarged lymph nodes and radiation treatment of any kind. Active Problems Problems Chronic constipation (564.00) (K59.09) Hemorrhoids (455.6) (K64.9) History of colon polyps (V12.72) (Z86.010) Hypercholesterolemia (272.0) (E78.00) Hypothyroidism, unspecified type (244.9) (E03.9) Parkinson's disease (332.0) (G20) Sigmoid diverticulosis (562.10) (K57.30) Weight loss (783.21) (R63.4) Past Medical History Problems History of GERD with stricture (530.81,530.3) (K21.9,K22.2) Denied: History of complications due to general anesthesia History of diabetes mellitus (V12.29) (Z86.39) History of diverticulosis (V12.79) (Z87.19) History of hemorrhoids (V13.89) (Z87.19) History of hypertension (V12.59) (Z86.79) History of osteopenia (V13.59) (Z87.39) Parkinson's disease (332.0) (G20) Surgical History Problems History of Breast Surgery Lumpectomy History of Colonoscopy 2003-DR BEAUCHAMP, [id number] diverticulosis Colon polyp, 2018- sig tics, hemorrhoids Hemorrhoids History of Esophagogastroduodenoscopy With Biopsy [id number] ring Normal stomach Normal duodenum History of Hysterectomy History of Parathyroid Surgery Denied: History of Surgical Complications: From General Anesthesia Family History Mother Family history of Father Family history of Other Denied: Family history of colon cancer Social History Problems Consumes healthy diet (V49.89) Daily caffeine consumption TEA- ONE CUP A DAY Denies alcohol consumption (V49.89) (Z78.9) Former smoker (V15.82) (Z87.891) smoked as a teenager History of body piercing (V45.89) (Z98.890) EARS Denied: History of tattoo No illicit drug use Patient has living will (V49.89) (Z78.9) Allergies Medication No Known Drug Allergies Recorded By: Keven Skinner; 07/26/2018 9:14:25 AM NonMedication No Known Food Allergies Recorded By: Keven Skinner; 07/26/2018 9:14:25 AM Current Meds Medication NameInstruction Atorvastatin Calcium 80 MG Oral Tablet Calcium 500-100 MG-UNIT Oral Tablet Chewable CoQ10 200 MG Oral Capsule Ibandronate Sodium 150 MG Oral Tablet Levothroid 50 MCG TABS Lisinopril 5 MG Oral Tablet Multi Vitamin Daily TABS Pantoprazole Sodium 20 MG Oral Tablet Delayed Releaseonce a day Rasagiline Mesylate 1 MG Oral Tablet Sertraline HCl - 25 MG Oral Tablet Vitamin D2 50 MCG (2000 UT) Oral Tablet Physical Exam Patient is alert for a telephone call without conversational dyspnea or cough. Slight hoarseness to voice. Results/Data 1. EGD with dilatation 01/13/12: Schatzki ring, normal stomach, normal duodenum. 2. Colonoscopy 12/31/12: Sigmoid diverticulosis, one transverse polyp, hemorrhoids. 3. Colonoscopy 08/20/18: Sigmoid diverticulosis and hemorrhoids. Time Time Stamp_: Time Spent With Patient: 14 minutes of which greater than 50 percent was spent counseling and or coordinating care. Signatures Electronically signed by : Patricia Naranjo PA-C; Jun 15 2020 1:35PM EST (Author) Normal [facility] - Microbiology an d Antimicrobial susceptibility Bacteria identified Cx Nom (Bld) No growth in 5 days. [facility] Work Phone: Vital Signs Date Time Vital Sign Value Performing Clinician Dianna sparks 08-27-2024 15:06-0400 Body height 152.4 cm Jeannie Carter APRN.[facility] Work Phone: [facility] 08-27-2024 15:06-0400 Body mass index (BMI) [Ratio] 20.51 kg/m2 Jeannie Carter APRN.[facility] Work Phone: [facility] 08-27-2024 15:06-0400 Body weight 47.63 kg Jeannie Carter APRN.[facility] Work Phone: [facility] Comment on above: Per pt. Did not get weighed 08-27-2024 15:06-0400 Diastolic blood pressure 92 mm[Hg] Jeannie Carter APRN.[employer] Work Phone: [facility] 08-27-2024 15:06-0400 Heart rate 83 /min Jeannie Carter APRN.[employer] ADMINIST[employer] Work Phone: [facility] 08-27-2024 15:06-0400 SaO2% (BldA) [Mass fraction] 93 % Jeannie Carter APRN.[facility] Work Phone: [facility] 08-27-2024 15:06-0400 Systolic blood pressure 134 mm[Hg] Jeannie Carter APRN.[facility] Work Phone: [facility] 09-06-2023 10:31-0400 Body height 152.4 cm [facility] 4 Work Phone: [facility] 09-06-2023 10:31-0400 Body temperature 98.1 [degF] [facility] Work Phone: [facility] 09-06-2023 10:31-0400 Body weight 50.76 kg [facility] 4 Work Phone: [facility] 09-06-2023 10:31-0400 Diastolic blood pressure 68 mm[Hg] [facility] 4 Work Phone: [facility] 09-06-2023 10:31-0400 Heart rate 81 /min [facility] 4 Work Phone: [facility] 09-06-2023 10:31-0400 SaO2% (BldA) [Mass fraction] 94 % [facility] 4 Work Phone: [facility] 09-06-2023 10:31-0400 Systolic blood pressure 96 mm[Hg] [facility] Work Phone: [facility] 09-03-2022 17:17-0400 Respiratory rate 16 /min DEN JENZECHARIAHJOHN Work Phone: [facility] Work Phone: 09-03-2022 15:13-0400 Body height 152.4 cm DEN ELTONZECHARIAHJOHN Work Phone: [facility] Work Phone: 09-03-2022 15:13-0400 Body mass index (BMI) [Ratio] 20.2 kg/m2 DEN RODRÍGUEZJOHN Work Phone: [facility] Work Phone: 09-03-2022 15:13-0400 Body temperature 97.1 [degF] DEN RODRÍGUEZJOHN Work Phone: [facility] Work Phone: 09-03-2022 15:13-0400 Body weight 47.17 kg DEN ALEXANDER Work Phone: [facility] Work Phone: 09-03-2022 15:13-0400 Diastolic blood pressure 77 mm[Hg] DEN RODRÍGUEZTE Work Phone: [facility] Work Phone: 09-03-2022 15:13-0400 Heart rate 90 /min DEN RODRÍGUEZTE Work Phone: [facility] Work Phone: 09-03-2022 15:13-0400 SaO2% (BldA) [Mass fraction] 94 % DEN RODRÍGUEZTE Work Phone: [facility] Work Phone: 09-03-2022 15:13-0400 Systolic blood pressure 89 mm[Hg] DEN ELTONRETTE Work Phone: [facility] Work Phone: 06-10-2022 16:06-0400 Body temperature 98 [degF] DEN RODRÍGUEZTE Work Phone: [facility] Work Phone: 06-10-2022 16:06-0400 Diastolic blood pressure 69 mm[Hg] DEN RODRÍGUEZTE Work Phone: [facility] Work Phone: 06-10-2022 16:06-0400 Heart rate 74 /min DEN ANNETE Work Phone: [facility] Work Phone: 06-10-2022 16:06-0400 Respiratory rate 16 /min DEN CONDERETTE Work Phone: [facility] Work Phone: 06-10-2022 16:06-0400 SaO2% (BldA) [Mass fraction] 93 % DEN ELTONRETTE Work Phone: [facility] Work Phone: 06-10-2022 16:06-0400 Systolic blood pressure 110 mm[Hg] DNE JENRETTE Work Phone: [facility] Work Phone: 06-08-2022 14:49-0400 Body height 152.4 cm DEN ALEXANDER Work Phone: [facility] Work Phone: 06-08-2022 14:49-0400 Body weight 46.76 kg DEN ALEXANDER Work Phone: [facility] Work Phone: 06-08-2022 01:31-0400 Body height 152.4 cm DEN ALEXANDER Work Phone: [facility] Work Phone: 06-08-2022 01:31-0400 Body mass index (BMI) [Ratio] 20.1 kg/m2 DEN ALEXANDER Work Phone: [facility] Work Phone: 06-08-2022 01:31-0400 Body weight 46.76 kg DEN ALEXANDER Work Phone: [facility] Work Phone: 06-07-2022 23:26-0400 Body temperature 98 [degF] DEN ALEXANDER Work Phone: [facility] Work Phone: 06-07-2022 23:26-0400 Diastolic blood pressure 83 mm[Hg] DEN ALEXANDER Work Phone: [facility] Work Phone: 06-07-2022 23:26-0400 Heart rate 72 /min DEN ALEXANDER Work Phone: [facility] Work Phone: 06-07-2022 23:26-0400 Respiratory rate 16 /min DEN ALEXANDER Work Phone: [facility] Work Phone: 06-07-2022 23:26-0400 SaO2% (BldA) [Mass fraction] 98 % DEN ALEXANDER Work Phone: [facility] Work Phone: 06-07-2022 23:26-0400 Systolic blood pressure 133 mm[Hg] DEN ALEXANDER Work Phone: [facility] Work Phone: 05-17-2022 13:15-0400 Diastolic blood pressure 58 mm[Hg] [facility] Work Phone: 05-17-2022 13:15-0400 Heart rate 73 /min [facility] Work Phone: 05-17-2022 13:15-0400 Respiratory rate 16 /min [facility] Work Phone: 05-17-2022 13:15-0400 SaO2% (BldA) [Mass fraction] 96 % [facility] Work Phone: 05-17-2022 13:15-0400 Systolic blood pressure 127 mm[Hg] [facility] Work Phone: 05-17-2022 11:23-0400 Body height 152.4 cm [facility] Work Phone: 05-17-2022 11:23-0400 Body mass index (BMI) [Ratio] 20.9 kg/m2 [facility] Work Phone: 05-17-2022 11:23-0400 Body temperature 98 [degF] [facility] Work Phone: 05-17-2022 11:23-0400 Body weight 48.8 kg [facility] Work Phone: 02-09-2022 05:17-0400 Body temperature 96.98 [degF] NAHID PARIKH GENERAL MANAGER [employer] ADMINIST[employer] [facility] 02-09-2022 05:17-0400 Diastolic blood pressure 80 mm[Hg] NAHID PARIKH GENERAL MANAGER [employer] ADMINISTRATOR [facility] 02-09-2022 05:17-0400 Heart rate 82 /min NAHID PARIKH GENERAL MANAGER [employer] ADMINISTRATOR [facility] 02-09-2022 05:17-0400 Respiratory rate 18 /min NAHID PARIKH GENERAL MANAGER [employer] ADMINISTRATOR [facility] 02-09-2022 05:17-0400 Systolic blood pressure 114 mm[Hg] NAHID PARIKH GENERAL MANAGER [employer] ADMINISTRATOR [facility] 02-08-2022 20:14-0400 Body temperature 98.06 [degF] NAHID PARIKH GENERAL MANAGER [employer] ADMINISTRATOR [facility] 02-08-2022 20:14-0400 Diastolic Blood Pressure NBP 73 1 NAHID PARIKH GENERAL MANAGER [employer] ADMINISTRATOR [facility] 02-08-2022 20:14-0400 Heart rate 85 /min NAHID PARIKH GENERAL MANAGER [employer] ADMINISTRATOR [facility] 02-08-2022 20:14-0400 Reason For Taking VItal Signs NAHID PARIKH GENERAL MANAGER [employer] ADMINISTRATOR [facility] 02-08-2022 20:14-0400 Respiratory rate 18 /min NAHID PARIKH GENERAL MANAGER [employer] ADMINISTRATOR [facility] 02-08-2022 20:14-0400 Systolic Blood Pressure NBP 105 1 NAHID PARIKH GENERAL MANAGER [employer] ADMINISTRATOR [facility] 02-08-2022 16:13-0400 Body temperature 97.88 [degF] NAHID PARIKH GENERAL MANAGER [employer] ADMINISTRATOR [facility] 02-08-2022 16:13-0400 Diastolic blood pressure 63 mm[Hg] NAHID PARIKH GENERAL MANAGER [employer] ADMINISTRATOR [facility] 02-08-2022 16:13-0400 Heart rate 83 /min NAHID PARIKH GENERAL MANAGER [employer] ADMINISTRATOR [facility] 02-08-2022 16:13-0400 Reason For Taking VItal Signs NAHID PARIKH GENERAL MANAGER [employer] ADMINISTRATOR [facility] 02-08-2022 16:13-0400 Respiratory rate 18 /min NAHID PARIKH GENERAL MANAGER [employer] ADMINISTRATOR [facility] 02-08-2022 16:13-0400 Systolic blood pressure 98 mm[Hg] NAHID PARIKH GENERAL MANAGER [employer] ADMINISTRATOR [facility] 02-08-2022 07:32-0400 Diastolic blood pressure 70 mm[Hg] NAHID PARIKH GENERAL MANAGER [employer] ADMINISTRATOR [facility] 02-08-2022 07:32-0400 Heart rate 80 /min NAHID PARIKH GENERAL MANAGER [employer] ADMINISTRATOR [facility] 02-08-2022 07:32-0400 Reason For Taking VItal Signs NAHID MANUELTonya GENERAL MANAGER [employer] ADMINISTRATOR [facility] 02-08-2022 07:32-0400 Systolic blood pressure 104 mm[Hg] NAHID MANUELTonya GENERAL MANAGER [employer] ADMINISTRATOR [facility] 02-08-2022 04:52-0400 Diastolic Blood Pressure NBP 73 1 NAHID ALONSONARDA GENERAL MANAGER [employer] ADMINISTRATOR [facility] 02-08-2022 04:52-0400 Heart rate 85 /min NAHID ALONSONARDA GENERAL MANAGER [employer] ADMINISTRATOR [facility] 02-08-2022 04:52-0400 Systolic Blood Pressure NBP 112 1 NAHID MANUELTonya GENERAL MANAGER [employer] ADMINISTRATOR [facility] 02-07-2022 20:32-0400 Diastolic Blood Pressure NBP 81 1 NAHID MANUELTonya GENERAL MANAGER [employer] ADMINISTRATOR [facility] 02-07-2022 20:32-0400 Heart rate 91 /min NAHID MANUELN GENERAL MANAGER [employer] ADMINISTRATOR [facility] 02-07-2022 20:32-0400 Systolic Blood Pressure NBP 121 1 NAHID MANUELN GENERAL MANAGER [employer] ADMINISTRATOR [facility] 02-07-2022 15:45-0400 Mean blood pressure 96 mm[Hg] NAHID PARIKH GENERAL MANAGER [employer] ADMINISTRATOR [facility] 02-06-2022 19:20-0400 Mean blood pressure 117 mm[Hg] NAHID PARIKH GENERAL MANAGER [employer] ADMINISTRATOR [facility] 02-03-2022 15:38-0400 Body height 152.4 cm NAHID PARIKH GENERAL MANAGER [employer] ADMINISTRATOR [facility] 02-03-2022 15:38-0400 Body weight 49 kg NAHID PARIKH GENERAL MANAGER [employer] ADMINISTRATOR [facility] 02-03-2022 15:38-0400 Body weight 21.1 kg/m2 NAHID PARIKH GENERAL MANAGER [employer] ADMINISTRATOR [facility] 02-03-2022 10:56-0400 Heart rate 80 /min ZENAIDA DUMONT GENERAL MANAGER FARM-PEOPLESOFT ADMINISTRATOR [facility] 02-03-2022 10:56-0400 Respiratory rate 16 /min ZENAIDA DUMONT GENERAL MANAGER FARM-PEOPLESOFT ADMINISTRATOR [facility] 02-03-2022 07:34-0400 Body temperature 97.88 [degF] ZENAIDA GREENFIELD GENERAL MANAGER FARM-PEOPLESOFT ADMINISTRATOR [facility] 02-03-2022 07:34-0400 Diastolic blood pressure 77 mm[Hg] ZENAIDA GREENFIELD GENERAL MANAGER FARM-PEOPLESOFT ADMINISTRATOR [facility] 02-03-2022 07:34-0400 Heart rate 88 /min ZENAIDA [facility] GENERAL MANAGER FARM-PEOPLESO[employer] ADMINISTRATOR [facility] 02-03-2022 07:34-0400 Mean blood pressure 91 mm[Hg] ZENAIDA [facility] GENERAL MANAGER FARM-PEOPLESO[employer] ADMINISTRATOR [facility] 02-03-2022 07:34-0400 Reason For Taking VItal Signs ZENAIDA [facility] GENERAL MANAGER FARM-PEOPLES[employer] ADMINISTRATOR [facility] 02-03-2022 07:34-0400 Respiratory rate 18 /min ZENAIDA [facility] GENERAL MANAGER FARM-PEOP[employer] ADMINISTRATOR [facility] 02-03-2022 07:34-0400 Systolic blood pressure 120 mm[Hg] ZENAIDA [facility] GENERAL MANAGER FARM-PEOPLESO[employer] ADMINISTRATOR [facility] 02-03-2022 06:26-0400 Heart rate 82 /min ZENAIDA [facility] GENERAL MANAGER FARM-PEOPLES[employer] ADMINISTRATOR [facility] 02-03-2022 06:26-0400 Respiratory rate 18 /min ZENAIDA [facility] GENERAL MANAGER FARM-PEOP[employer] ADMINISTRATOR [facility] 02-03-2022 04:02-0400 Body temperature 98.06 [degF] ZENAIDA [facility] GENERAL MANAGER FARM-PEOPLESO[employer] ADMINISTRATOR [facility] 02-03-2022 04:02-0400 Diastolic blood pressure 69 mm[Hg] ZENAIDA TIM GENERAL MANAGER FARM-PEOPLESO[employer] ADMINISTRATOR [facility] 02-03-2022 04:02-0400 Heart rate 80 /min ZENAIDA GREENFIELD GENERAL MANAGER FARM-[employer]OP[employer] ADMINISTRATOR [facility] 02-03-2022 04:02-0400 Systolic blood pressure 102 mm[Hg] ZENAIDA GREENFIELD GENERAL MANAGER FARM-PEOPLESO[employer] ADMINISTRATOR [facility] 02-02-2022 19:46-0400 Body temperature 97.88 [degF] ZENAIDA GREENFIELD GENERAL MANAGER FARM-PEOP[employer] ADMINISTRATOR [facility] 02-02-2022 19:46-0400 Diastolic blood pressure 68 mm[Hg] ZENAIDA DUPONTUBBLEFIELD GENERAL MANAGER FARM-PEOPLESO[employer] ADMINISTRATOR [facility] 02-02-2022 19:46-0400 Reason For Taking VItal Signs ZENAIDA GREENFIELD GENERAL MANAGER FARM-[employer]OP[employer] ADMINISTRATOR [facility] 02-02-2022 19:46-0400 Systolic blood pressure 98 mm[Hg] ZENAIDA DUPONTUBBLEFIELD GENERAL MANAGER FARM-PEOPLESO[employer] ADMINISTRATOR [facility] 02-02-2022 07:15-0400 Heart rate 77 /min ZENAIDA GREENFIELD GENERAL MANAGER FARM-[employer]OP[employer] ADMINISTRATOR [facility] 02-02-2022 07:15-0400 Reason For Taking VItal Signs ZENAIDA [facility] GENERAL MANAGER FARM-PEOPLESO[employer] ADMINISTRATOR [facility] 02-02-2022 03:18-0400 Diastolic Blood Pressure NBP 71 1 ZENAIDA DUMONT GENERAL MANAGER FARM-PEOP[employer] ADMINISTRATOR [facility] 02-02-2022 03:18-0400 Systolic Blood Pressure NBP 112 1 ZENAIDA GREENFIELD GENERAL MANAGER FARM-PEOPLESOFT ADMINISTRATOR [facility] 02-01-2022 23:11-0400 Diastolic Blood Pressure NBP 68 1 ZENAIDA GREENFIELD GENERAL MANAGER FARM-PEOPLESO[employer] ADMINISTRATOR [facility] 02-01-2022 23:11-0400 Systolic Blood Pressure NBP 125 1 ZENAIDA GREENFIELD GENERAL MANAGER FARM-PEOPLESO[employer] ADMINISTRATOR [facility] 02-01-2022 19:51-0400 Diastolic Blood Pressure NBP 67 1 ZENAIDA GREENFIELD GENERAL MANAGER FARM-PEOPLESOFT ADMINISTRATOR [facility] 02-01-2022 19:51-0400 Systolic Blood Pressure NBP 112 1 ZENAIDA GREENFIELD GENERAL MANAGER FARM-PEOPLESO[employer] ADMINISTRATOR [facility] 02-01-2022 17:26-0400 Heart rate 68 /min ZENAIDA GREENFIELD GENERAL MANAGER FARM-[employer]OP[employer] ADMINISTRATOR [facility] 02-01-2022 16:19-0400 Body temperature 97.88 [degF] ZENAIDA GREENFIELD GENERAL MANAGER FARM-PEOPLESO[employer] ADMINISTRATOR [facility] 02-01-2022 15:01-0400 Heart rate 80 /min ZENAIDA GREENFIELD GENERAL MANAGER FARM-PEOPLES[employer] ADMINISTRATOR [facility] 02-01-2022 14:43-0400 Body temperature 98.06 [degF] ZENAIDA GREENFIELD GENERAL MANAGER FARM-PEOPLESO[employer] ADMINISTRATOR [facility] 02-01-2022 14:43-0400 Heart rate 84 /min ZENAIDA GREENFIELD GENERAL MANAGER FARM-PEOPLES[employer] ADMINISTRATOR [facility] 01-31-2022 18:07-0400 Body height 152.4 cm ZENAIDA GREENFIELD GENERAL MANAGER FARM-PEOPLESOFT ADMINISTRATOR [facility] 01-31-2022 18:07-0400 Body weight 49 kg ZENAIDA GREENFIELD GENERAL MANAGER FARM-PEOPLESOFT ADMINISTRATOR [facility] 01-31-2022 18:07-0400 Body weight 21.1 kg/m2 ZENAIDA GREENFIELD GENERAL MANAGER FARM-PEOPLESOFT ADMINISTRATOR [facility] Encounters Encounter Date Encounter Type Care Provider Facility Start: 09-25-2025 ambulatory Olu Perez Facility: [facility] Start: 09-17-2025 ambulatory OLU PEREZ DO Faci lity:[facility] Start: 09-04-2025 End: 09-04-2025 ambulatory Merlyn Valentin Facility:[facility] Start: 08-13-2025 End: 08-13-2025 ambulatory OLU PEREZ DO Facility:A Start: 07-30-2025 End: 07-30-2025 ambulatory MARILEE RODRIGUEZ GENERAL MANAGER FARM-PEOPLESOFT ADMINISTRATOR Facility:[facility] Start: 07-30-2025 End: 07-30-2025 Patient encounter procedure MARILEE RODRIGUEZ GENERAL MANAGER FARM-PEOPLESOFT ADMINISTRATOR [facility] Start: 06-26-2025 End: 06-26-2025 Specialty Pharmacy Jonathan Juan [facility] Comment on above: [facility] Neurology - Medi cation Refill (Nuplazid ) Start: 06-20-2025 End: 06-20-2025 ambulatory Jeannie Carter APRN.PEOPLESOFT ADMINISTRATOR Work Phone: Neurology Comment on above: Tamar's meds Start: 06-16-2025 End: 06-17-2025 ambulatory Jeannie Carter GENERAL MANAGER FARM.PEOPLESOFT ADMINISTRATOR Work Phone: Neurology Comment on above: Samantha new drug. Start: 05-27-2025 End: 05-27-2025 ambulatory Jeannie Carter APRN.PEOPLESOFT ADMINISTRATOR Work Phone: Neurology Comment on above: HALLUCINATIONS Start: 05-22-2025 End: 05-22-2025 Specialty Pharmacy Jonathan Juan [facility] Comment on above: [facility] Neurology - Medi cation Refill (Nuplazid ) Start: 05-20-2025 End: 05-20-2025 Refill Jeannie Carter APRN.PEOPLESOFT ADMINISTRATOR Work Phone: [facility] Comment on above: Refill Request Start: 04-24-2025 End: 04-24-2025 Specialty Pharmacy Yuly Walters [facility] Work Phone: [facility] Specialty Pharmacy Comment on above: [facility] Neurology - Medi cation Refill (Nuplazid) Start: 04-17-2025 End: 04-17-2025 Telemedicine consultation with patient Jeannie Carter APRN.PEOPLESOFT ADMINISTRATOR Work Phone: Neurology Start: 04-17-2025 End: 04-17-2025 ambulatory Jeannie Carter APRN.PEOPLESOFT ADMINISTRATOR Work Phone: Neurology Comment on above: Parkinson's disease, unspecified whether dyskinesia present, unspecified whether manifestations fluctuate (HCC) (Primary Dx); Visual hallucinations Start: 04-16-2025 End: 04-16-2025 ambulatory Jeannie Carter APRN.PEOPLESOFT ADMINISTRATOR Work Phone: Neurology Comment on above: Hallucinations Start: 03-24-2025 End: 03-24-2025 Specialty Pharmacy Jonathan Ara [facility] Comment on above: [facility] Neurology - Medi cation Refill (Nuplazid ) Start: 03-14-2025 End: 03-18-2025 ambulatory OLU PEREZ DO Facility:[facility] Start: 02-24-2025 End: 02-24-2025 Specialty Pharmacy Jonathan [facility] Comment on above: [facility] Neu[facility] - Medi cation Refill (Nuplazid) Start: 02-11-2025 End: 02-15-2025 ambulatory OLU PEREZ DO Facility:[facility] Start: 01-23-2025 End: 01-23-2025 Specialty Pharmacy Jonathan Ara [facility] Comment on above: [facility] Neurology - Medi cation Refill (Nuplazid ) Start: 01-16-2025 End: 01-20-2025 ambulatory OLU PEREZ DO Facility:[facility] Start: 12-24-2024 End: 12-24-2024 Specialty Pharmacy [facility] Comment on above: [facility] Neurology - Medi cation Refill (Nuplazid) Start: 11-25-2024 End: 11-25-2024 Specialty Pharmacy Jonathan Ara [facility] Comment on above: [facility] Neurology - Medi cation Refill (Nuplazid ); [facility] - Patient Assistance ([facility] Approved) Start: 11-22-2024 End: 11-22-2024 Refill Jeannie Carter APRN.CNP Work Phone: [facility] Comment on above: Refill Request Start: 11-14-2024 End: 12-20-2024 ambulatory OLU PEREZ DO Facility:[facility] Start: 10-22-2024 End: 10-22-2024 Specialty Pharmacy Jonathan Pathakohn [facility] Comment on above: [facility] Neurology - Medi cation Refill (Nuplazid ) Start: 09-24-2024 End: 09-24-2024 ambulatory Olu Perez Facility:[facility] Start: 09-19-2024 End: 09-19-2024 Refill Jeannie Carter APRN.CNP Work Phone: Neurology Comment on above: Med Change Request Start: 09-19-2024 End: 09-19-2024 Specialty Pharmacy Jonathan Juan [facility] Comment on above: [facility] Neurology - Medi cation Refill (Nuplazid ) Start: 08-27-2024 End: 08-27-2024 Office outpatient visit 25 minutes Jeannie Carter APRN.CNP Work Phone: Neurology Comment on above: 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) (Primary Dx) Start: 08-27-2024 End: 08-27-2024 ambulatory JEANNIE CARTER Facility:[facility] Start: 08-16-2024 End: 08-16-2024 Specialty Pharmacy Jonathan Juan [facility] Comment on above: [facility] Neurology - Medi cation Refill (Nuplazid) Start: 08-02-2024 End: 08-02-2024 Refill Jeannie Carter APRN.CNP Work Phone: Neurology Comment on above: Refill Request Start: 07-12-2024 End: 07-12-2024 Specialty Pharmacy Jonathan Juan [facility] Comment on above: [facility] Neurology - Medi cation Refill (Nuplazid ) Start: 07-05-2024 End: 07-09-2024 ambulatory MARILEE ZARAGOZA Facility:A Start: 06-13-2024 Specialty Pharmacy Jonathan Juan [facility] Comment on above: [facility] Neurology - Medi cation Refill (Nuplazid ) Start: 05-20-2024 Specialty Pharmacy Jonathan Juan [facility] Comment on above: [facility] Neurology - Medi cation Refill (Nuplazid) Start: 05-16-2024 Refill Jeannie gould APRN.PEOPLESOFT ADMINISTRATOR Work Phone: [facility] Comment on above: Refill Request Start: 04-16-2024 Specialty Pharmacy Jonathan Juan [facility] Comment on above: [facility] Neurology - Medi cation Refill (Nuplazid ) Start: 03-21-2024 End: 03-25-2024 ambulatory OLU PEREZ DO Facility:A Start: 03-19-2024 End: 03-23-2024 Specialty Pharmacy Jonathan Pathakohn [facility] Comment on above: [facility] Neurology - Medi cation Refill (Nuplazid) Start: 03-18-2024 Refill Jeannie Higuera bryanna BARRAGAN Work Phone: [facility] Comment on above: Refill Request Start: 02-09-2024 Specialty Pharmacy Jonathan Pathakohn [facility] Comment on above: [facility] Neurology - Medi cation Refill (Nuplazid) Start: 02-06-2024 End: 02-10-2024 ambulatory OLU PEREZ Facility:A Start: 01-15-2024 Specialty Pharmacy Jonathan Pathakohn [facility] Comment on above: [facility] Neurology - Medi cation Refill (Nuplazid) Start: 10-16-2023 Specialty Pharmacy Jonathan Pathakohn [facility] Comment on above: [facility] Neurology - Medi cation Refill (Nuplazid) Start: 10-02-2023 End: 10-02-2023 ambulatory [facility] Work Phone: Start: 10-02-2023 End: 10-02-2023 Patient encounter procedure [facility] Work Phone: Start: 09-25-2023 End: 09-29-2023 [facility] Start: 09-18-2023 ambulatory Yuly Romeo [facility] Work Phone: [facility] Start: 09-07-2023 End: 09-11-2023 ambulatory MARILEE RODRIGUEZ GENERAL MANAGER [facility] Start: 09-06-2023 End: 09-06-2023 Patient encounter procedure Albert Qureshi MD Work Phone: [facility] Comment on above: Parkinson's disease, unspecified whether dyskinesia present, unspecified whether manifestations fluctuate (Primary Dx); Moderate protein-calorie malnutrition (HCC) Parkinson's disease, unspecified whether dyskinesia present, unspecified whether manifestations fluctuate (Primary Dx) Start: 09-06-2023 End: 09-06-2023 Admission to [facility] Main 4 Work Phone: [facility] Start: 09-06-2023 End: 09-06-2023 ambulatory Pac Main 4 Work Phone: Pre Anesthesia Comment on above: Pre-op evaluation (P rimary Dx); Type 2 diabetes mellitus without complication, unspecified whether mcfp insulin use (HCC); Parkinson's disease, unspecified whether dyskinesia present, unspecified whether manifestations fluctuate; Hypercholesterolemia; Gastroesophageal reflux disease without esophagitis; Hypothyroidism (acquired) Start: 09-06-2023 End: 09-06-2023 Preprocedural examination done Pac Main 4 Work Phone: [facility] Work Phone: Start: 09-05-2023 Documentation procedure Mammog mika Coordinator [facility] Start: 09-05-2023 Letter encounter Mammography Coordinator [facility] Department Start: 09-05-2023 ambulatory OLU Ramey y:[id number] Start: 09-05-2023 End: 09-05-2023 Subsequent hospital visit by physician Screen/Diagnostic Mammo [facility] Comment on above: Encounter for other screening for malignant neoplasm of breast [Z12.39] Start: 08-24-2023 End: 08-28-2023 ambulatory TRACEY PEREZ MD Facility:A Start: 08-18-2023 Specialty Pharmacy Yuly Kee [facility] Work Phone: [facility] Specialty Pharmacy Comment on above: [facility] Neurology - Medi cation Refill (Nuplazid) Start: 08-14-2023 Telephone encounter Gregory mackey PA-C Work Phone: [facility] Start: 07-24-2023 End: 07-28-2023 ambulatory OLU PEREZ DO Facility:A Start: 07-14-2023 Specialty Pharmacy Yuly Kee [facility] Work Phone: [facility] Specialty Pharmacy Comment on above: [facility] Neurology - Medi cation Refill (Nuplazid) Start: 07-01-2023 Refill Jeannie gould APRN.CNP Work Phone: Neurology Comment on above: Refill Request Start: 06-09-2023 Specialty Pharmacy Yuly Kee [facility] Work Phone: [facility] Specialty Pharmacy Comment on above: [facility] Neurology - Medi cation Refill (Nuplazid) Start: 05-12-2023 Specialty Pharmacy Yuly [facility] Work Phone: [facility] Specialty Pharmacy Comment on above: [facility] Neurology - Medi cation Refill (Nuplazid) Start: 05-03-2023 Refill Jeannie gould APRN.PEOPLESOFT ADMINISTRATOR Work Phone: [facility] Comment on above: Refill Request Start: 04-28-2023 End: 04-28-2023 Office outpatient visit 25 minutes Jeannie Carter APRN.PEOPLESOFT ADMINISTRATOR Work Phone: [facility] Comment on above: Parkinson's disease (HCC) (Primary Dx) Start: 04-05-2023 Specialty Pharmacy Yuly [facility] Work Phone: [facility] Specialty Pharmacy Comment on above: [facility] Neurology - Medi cation Refill (nuplazid) Start: 03-16-2023 End: 03-17-2023 ambulatory DEN ALEXANDER Facility:[id number] Start: 03-08-2023 Specialty Pharmacy Yuly [facility] Work Phone: [facility] Specialty Pharmacy Comment on above: [facility] Neurology - Medi cation Refill (nuplazid) Start: 02-07-2023 Specialty Pharmacy Yuly [facility] Work Phone: [facility] Specialty Pharmacy Comment on above: [facility] Neurology - Medi cation Refill (Nuplazid) Start: 12-09-2022 Specialty Pharmacy Yuyl [facility] Work Phone: [facility] Comment on above: [facility] Neurology - Medi cation Refill (nuplazid) Start: 12-01-2022 Telephone encounter Elinor loaiza Research Coordinator Work Phone: [facility] Comment on above: Research Start: 11-14-2022 End: 11-14-2022 ambulatory Jeannie Carter APRN.PEOPLESOFT ADMINISTRATOR Work Phone: [facility] Comment on above: Parkinson's disease (HCC) [facility] - Medi cation Refill (Nuplazid 34mg); Medication Update (No PA required) Start: 11-14-2022 End: 11-14-2022 Telemedicine consultation with patient Jeannie Carter APRN.CNP Work Phone: [facility] Start: 11-11-2022 End: 11-12-2022 ambulatory DEN ALEXANDER Facility:[id number] Start: 11-10-2022 ambulatory Jeannie gould APRN.PEOPLESOFT ADMINISTRATOR Work Phone: Neurology Comment on above: Tamar'lavell implant adjus ter Start: 11-03-2022 Telephone encounter Jeannie Carter APRN.PEOPLESOFT ADMINISTRATOR Work Phone: [facility] Comment on above: KissMyAds/rumr: turn off the lights Records Request Start: 10-21-2022 Specialty Pharmacy Yuly gustafson [facility] Work Phone: [facility] Comment on above: [facility] Neurology - Medi cation Refill (nuplazid) Start: 09-23-2022 Specialty Pharmacy Jonathan Juan [facility] Comment on above: [facility] Neurology - Medi cation Refill (Nuplazid) Refill Request Start: 09-03-2022 End: 09-03-2022 Emergency department patient visit DEN ALEXANDER Work Phone: [facility]Emergency Department Start: 09-01-2022 End: 09-01-2022 Subsequent hospital visit by physician Screen/Diagnostic Mammo [facility] Comment on above: Encounter for screen ing mammogram for malignant neoplasm of breast [Z12.31] Refill Request (Nupl azid) Start: 08-22-2022 ambulatory Jeannie gould APRN.PEOPLESOFT ADMINISTRATOR Work Phone: Neurology Comment on above: Pharmacy call Start: 08-17-2022 ambulatory Jonathan Juan [facility] Start: 08-17-2022 Patient encounter procedure Jonathan Juan [facility] Comment on above: [facility] Neu[facility] - Chanel tment Referral (Nuplazid); Insurance Authorization (PA submission pending) Start: 08-16-2022 End: 08-16-2022 ambulatory Jeannie Carter APRN.PEOPLESOFT ADMINISTRATOR Work Phone: Neurology Comment on above: Parkinson's disease (HCC) Start: 08-16-2022 End: 08-16-2022 Telemedicine consultation with patient Jeannie Carter APRN.PEOPLESOFT ADMINISTRATOR Work Phone: [facility] Start: 07-22-2022 ambulatory Jeannie gould APRN.PEOPLESOFT ADMINISTRATOR Work Phone: [facility] Comment on above: PATCH Start: 07-10-2022 Refill Jeannie gould APRN.PEOPLESOFT ADMINISTRATOR Work Phone: Neurology Comment on above: Refill Request Start: 06-15-2022 Telephone encounter Albert denis MD Work Phone: [facility] Comment on above: Patient Update Start: 06-10-2022 Non-patient / Non-visit TREASURE ALEXANDER Work Phone: [facility] Start: 06-09-2022 Non-patient / Non-visit TREASURE RODRÍGUEZTE Work Phone: [facility] Start: 06-08-2022 Non-patient / Non-visit TREASURE RODRÍGUEZTE Work Phone: [facility] Start: 06-07-2022 Non-patient / Non-visit TREASURE RODRÍGUEZTE Work Phone: [facility] Start: 06-07-2022 End: 06-10-2022 Evaluation and management of inpatient DEN RODRÍGUEZTE [facility] Start: 06-07-2022 Telephone encounter Albert denis MD Work Phone: [facility] Comment on above: Patient Update Start: 05-31-2022 Telephone encounter Jeannie Carter APRN.PEOPLESOFT ADMINISTRATOR Work Phone: Neurology Comment on above: Opened In Error Start: 05-17-2022 End: 05-17-2022 Emergency department patient visit [facility] Start: 05-06-2022 End: 05-06-2022 ambulatory Jeannie Carter GENERAL MANAGER FARM.PEOPLESOFT ADMINISTRATOR Work Phone: [facility] Comment on above: Parkinson's disease (HCC) (Primary Dx); Memory loss Start: 05-06-2022 End: 05-06-2022 Telemedicine consultation with patient Jeannie Carter APRN.PEOPLESOFT ADMINISTRATOR Work Phone: [facility] Start: 04-12-2022 ambulatory Jeannie gould GENERAL MANAGER FARM.PEOPLESOFT ADMINISTRATOR Work Phone: Neurology Comment on above: E-Mail address Start: 03-30-2022 ambulatory Jeannie gould GENERAL MANAGER FARM.PEOPLESOFT ADMINISTRATOR Work Phone: Neurology Comment on above: TAMAR FALLING Start: 03-05-2022 End: 03-05-2022 ambulatory Jeannie Carter GENERAL MANAGER FARM.PEOPLESOFT ADMINISTRATOR Work Phone: Neurology Comment on above: Parkinson's disease (HCC) (Primary Dx) Start: 03-05-2022 End: 03-05-2022 Telemedicine consultation with patient Jeannie Carter APRN.PEOPLESOFT ADMINISTRATOR Work Phone: [facility] Start: 02-19-2022 End: 02-19-2022 Subsequent hospital visit by physician Den Alexander MD Work Phone: [facility] Comment on above: R51.9 Start: 02-10-2022 ambulatory Jeannie gould GENERAL MANAGER FARM.PEOPLESOFT ADMINISTRATOR Work Phone: Neurology Comment on above: TAMAR Start: 02-03-2022 End: 02-09-2022 Evaluation and management of inpatient NAHID PARIKH GENERAL MANAGER FARM-PEOPLESOFT ADMINISTRATOR [facility] Start: 01-31-2022 End: 02-03-2022 Evaluation and management of inpatient ZENAIDA Jean TIM GENERAL MANAGER FARM-PEOPLESOFT ADMINISTRATOR [facility] Start: 01-21-2022 Telephone encounter Armani mora PSYD Work Phone: Neurology Comment on above: Patient Question Procedures Date Procedure Procedure Detail Performing Clinician Start: 04-17-2025 Follow-up visit Follow Up JEANNIE CARTER Start: 10-02-2023 CT of head without contrast Start: 09-05-2023 Screening digital br east tomosynthesis bi Olu Perez DO Work Phone: Start: 09-03-2022 Plain x-ray of elbow SHAHAB ALEXANDER Work Phone: Start: 09-03-2022 CT of head without contrast DEN ALEXANDER Work Phone: Start: 09-03-2022 Plain X-ray of shoulder DEN ALEXANDER Work Phone: Start: 09-03-2022 Radiologic examinati on of knee DEN ALEXANDER Work Phone: Start: 09-01-2022 Screening mammograph y [facility] Den Alexander MD Work Phone: Start: 06-07-2022 CT of head without contrast DEN ALEXANDER Work Phone: Start: 05-17-2022 CT of abdomen and pe lvis without contrast Start: 05-17-2022 CT of head without contrast Start: 05-06-2022 Adult depression screening assessment Jeannie Carter GENERAL MANAGER FARM.PEOPLESOFT ADMINISTRATOR Work Phone: Start: 03-02-2022 Adult depression screening assessment Jeannie Catrer GENERAL MANAGER FARM.PEOPLESOFT ADMINISTRATOR Work Phone: Start: 11-09-2021 Adult depression screening assessment Jeannie Carter APRN.PEOPLESOFT ADMINISTRATOR Work Phone: Start: 08-20-2018 Colonoscopy ZENAIDA DUMONT GENERAL MANAGER FARM-PEOPLESOFT ADMINISTRATOR Start: 11-06-2015 History of thyroidectomy ZENAIDA DUMONT GENERAL MANAGER FARM-PEOPLESOFT ADMINISTRATOR Start: 11-06-2015 Total hysterectomy YULI DUMONT GENERAL MANAGER FARM-PEOPLESOFT ADMINISTRATOR Start: 11-06-2012 Colonoscopy ZENAIDARUBÉN DUMONT GENERAL MANAGER FARM-PEOPLESOFT ADMINISTRATOR Bacteria identified in Blood by Culture DEN BENJAMIN Work Phone: H/O: surgery S/P deep brain stimulator placement DEN CONDEGIUSEPPE Work Phone: Miscellaneous (quali fier value) ZENAIDA DUMONT GENERAL MANAGER FARM-PEOPLESOFT ADMINISTRATOR Comment on above: Deep Vein Stimulator right upper chest- February-March 2021 x3 surgeries for Parkinsons Viral antigen assay DEN BENJAMIN Work Phone: Plan of Treatment Date Care Activity Detail Author Start: 06-07-2032 Urine microalbumin profile DTaP,Tdap,Td Vaccine (2 - Td or Tdap) [facility] Start: 07-29-2025 End: 07-29-2025 Specialty Pharmacy 07/29/2025 9:00 AM EDT Specialty Pharmacy [facility] Special[facility] Pharmacy [address] [place] [address] Pharmacist, [place] [phone] Refill - Nuplazid (Call Donovan) [facility] Special[facility] Pharmacy Comment on above: Refill - Nuplazid (C all Donovan) Start: 07-07-2025 Influenza vaccination Influenza Vacc ine (#1) [facility] Start: 06-26-2025 End: 06-26-2025 Specialty Pharmacy 06/26/2025 8:00 AM EDT Specialty Pharmacy [facility] [address] [place] [address] Pharmacist, [facility] [place] [address] [place] [address] Refill call Nuplazid (Call home #, speak with Donovan) --- [facility] Comment on above: Refill call Nuplazid (Call home #, speak with Donovan) --- Start: 05-23-2025 End: 05-23-2025 Specialty Pharmacy [facility] Special[facility] Pharmacy Comment on above: Refill call Nuplazid (Call home #, speak with Donovan) --- Refill call Nuplazid (Call home #, speak with Donovan) --- refill req'd 05/20 Start: 04-24-2025 End: 04-24-2025 Specialty Pharmacy 04/24/2025 8:00 AM EDT Specialty Pharmacy [facility] [address] [place] [address] Pharmacist, [facility] [address] [place] [address] Refill call Nuplazid (Call home #, speak with Donovan) --- [facility] Comment on above: Refill call Nuplazid (Call home #, speak with Donovan) --- Start: 04-17-2025 End: 04-17-2025 ambulatory 04/17/2025 12:45 PM EDT [facility] [address] [place] [address] Jeannie Carter, GENERAL MANAGER FARM.PEOPLESOFT ADMINISTRATOR [address] [place] [address] hallucinations Neurology Comment on above: hallucinations Start: 03-24-2025 End: 03-24-2025 Specialty Pharmacy 03/24/2025 9:00 AM EDT Specialty Pharmacy [facility] [address] [place] [phone] Pharmacist, [facility] [address] [place] [address] Refill- Nuplazid (Call home #, speak with Donovan) --- [facility] Comment on above: Refill- Nuplazid (Ca ll home #, speak with Donovan) --- Start: 02-26-2025 Covid-19 Vaccine ( season) Covid-19 Vaccine ( season) [facility] Start: 02-24-2025 End: 02-24-2025 Specialty Pharmacy 02/24/2025 8:00 AM EDT Specialty Pharmacy [facility] [address] [place] [address] Pharmacist, [facility] [address] [place] [address] [place] [address] Refill- Nuplazid (Call home #, speak with Donovan) --- [facility] Comment on above: Refill- Nuplazid (Ca ll home #, speak with Donovan) --- Start: 12-27-2024 End: 12-27-2024 Specialty Pharmacy 12/27/2024 9:00 AM EST [facility]ty [facility] [address] [place] [address] Pharmacist, [facility] [address] [place] [address] [place] [address] Refill- Nuplazid (Call home #, speak with Donovan) - lvm 12/24 [facility] Comment on above: Refill- Nuplazid (Ca ll home #, speak with Donovan) - [facility] 12/24 Start: 12-24-2024 End: 12-24-2024 Specialty Pharmacy 12/24/2024 9:15 AM EST [facility]ty [facility] [address] [place] [address] Pharmacist, [facility] [address] [place] [address] [place] [address] Refill- Nuplazid (Call home #, speak with Donovan) - [facility] Comment on above: Refill- Nuplazid (Ca ll home #, speak with Donovan) - Start: 11-25-2024 End: 11-25-2024 Specialty Pharmacy 11/25/2024 9:00 AM EST Specialty Pharmacy [facility] Special[facility] Pharmacy [address] [place] [address] Pharmacist, [facility] [address] [place] [address] [place] [address] Refill- Nuplazid (Call home #, speak with Donovan) - REFILL REQ 11/22 [facility] Comment on above: Refill- Nuplazid (Ca ll home #, speak with Donovan) - REFILL REQ 11/22 Start: 11-22-2024 End: 11-22-2024 Specialty Pharmacy 11/22/2024 9:15 AM EST [facility] [address] [place] [address] Pharmacist, [facility] [address] [place] [address] [place] [address] Refill- Nuplazid (Call home #, speak with Donovan) - [facility] Specialty Pharmacy Comment on above: Refill- Nuplazid (Ca ll home #, speak with Donovan) - Start: 11-06-2024 Advance Directive Discussion Advance Directive Discussion [facility] Start: 11-06-2024 Medicare Advantage A nnual Wellness Visit Medicare Advantage Annual Wellness Visit [facility] Start: 10-22-2024 End: 10-22-2024 Specialty Pharmacy 10/22/2024 8:00 AM EST Specialty Pharmacy [facility] Special[facility] Pharmacy [address] [place] [address] Pharmacist, [facility] [address] [place] [address] [place] [address] Refill- Nuplazid (Call home #, speak with Donovan) - [facility] Specialty Pharmacy Comment on above: Refill- Nuplazid (Ca ll home #, speak with Donovan) - Start: 09-19-2024 End: 09-19-2024 Specialty Pharmacy 09/19/2024 9:15 AM EST Specialty Pharmacy [facility] Special[facility] Pharmacy [address] [place] [address] Pharmacist, [facility] [address] [place] [address] [place] [address] Refill- Nuplazid (Call home #, speak with Donovan) - [facility] Specialty Pharmacy Comment on above: Refill- Nuplazid (Ca ll home #, speak with Donovan) - Start: 09-06-2024 BP Controlled (<130/80) BP Controlle d (<130/80) [facility] Start: 08-27-2024 End: 08-27-2024 Patient encounter procedure 08/27/2024 3:00 PM EDT Office Visit Neurology [address] [id number] Jeannie Carter, GENERAL MANAGER FARM.PEOPLESOFT ADMINISTRATOR [address] [place] [address] Dementia Neurology Comment on above: Dementia Start: 08-20-2024 End: 08-20-2024 Specialty Pharmacy 08/20/2024 9:15 AM EDT Specialty Pharmacy [facility] Special[facility] [address] [place] [address] Pharmacist, [facility] [address] [place] [address] [place] [address] Refill- Nuplazid (Call home #, speak with Donovan) - [facility] Comment on above: Refill- Nuplazid (Ca ll home #, speak with Donovan) - Start: 08-16-2024 End: 08-16-2024 Specialty Pharmacy 08/16/2024 9:00 AM EDT Specialty Pharmacy [facility] [address] [place] [address] Pharmacist, [facility] [address] [place] [address] [place] [address] Refill- Nuplazid (Call home #, speak with Donovan) - [facility] 07/12 [facility] Comment on above: Refill- Nuplazid (Ca ll home #, speak with Donovan) - LVM 07/12 Start: 07-12-2024 End: 07-12-2024 Specialty Pharmacy 07/12/2024 9:15 AM EDT Specialty Pharmacy [facility] [address] [place] [address] Pharmacist, [facility] [address] [place] [address] [place] [address] Refill- Nuplazid (Call home #, speak with Donovan) - [facility] Comment on above: Refill- Nuplazid (Ca ll home #, speak with Donovan) - Start: 07-07-2024 Covid-19 Vaccine ( season) Covid-19 Vaccine ( season) [facility] Start: 07-07-2024 Covid-19 Vaccine ( season) Covid-19 Vaccine () [facility] Start: 07-07-2024 Influenza vaccination Influenza Vacc ine (#1) [facility] Start: 06-14-2024 End: 06-14-2024 Specialty Pharmacy 06/14/2024 9:15 AM EDT Specialty Pharmacy [facility] Special[facility] Pharmacy [address] [place] [address] Pharmacist, [facility] [address] [place] [address] [place] [address] Refill- Nuplazid (Call home #, speak with Donovan) - [facility] Specialty Pharmacy Comment on above: Refill- Nuplazid (Ca ll home #, speak with Donovan) - Start: 05-20-2024 End: 05-20-2024 Specialty Pharmacy 05/20/2024 9:15 AM EDT Specialty Pharmacy [facility] Special[facility] Pharmacy [address] [place] [address] Pharmacist, [facility] [address] [place] [address] [place] [address] Refill- Nuplazid (Call home #, speak with Donovan) - [facility] Comment on above: Refill- Nuplazid (Ca ll home #, speak with Donovan) - Start: 05-17-2024 End: 05-17-2024 Specialty Pharmacy 05/17/2024 9:15 AM EDT Specialty Pharmacy [facility] [address] [place] [address] Pharmacist, [facility] [address] [place] [address] [place] [address] Refill- Nuplazid (Call home #, speak with Donovan) - [facility] Comment on above: Refill- Nuplazid (Ca ll home #, speak with Donovan) - Start: 04-16-2024 End: 04-16-2024 Specialty Pharmacy 04/16/2024 9:15 AM EDT Specialty Pharmacy [facility] [address] [place] [address] Pharmacist, [facility] [address] [place] [address] [place] [address] Refill- Nuplazid (Call home #, speak with Donovan) - [facility] Comment on above: Refill- Nuplazid (Ca ll home #, speak with Donovan) - Start: 03-19-2024 End: 03-19-2024 Specialty Pharmacy 03/19/2024 9:15 AM EDT Specialty Pharmacy [facility] [address] [place] [address] Pharmacist, [facility] [address] [place] [address] [place] [address] Refill- Nuplazid (Call home #, speak with Donovan) - [facility] Comment on above: Refill- Nuplazid (Ca ll home #, speak with Donovan) - Start: 03-16-2024 Hepatitis B surface antibody level LDL CHOLESTEROL [facility] Start: 03-06-2024 Hemoglobin A1c measurement HbA1C [facility] Start: 03-06-2024 Hemoglobin A1c/Hemoglobin.total in Blood HbA1C [facility] Start: 12-18-2023 Covid-19 Vaccine () Covid-19 Vaccine () [facility] Start: 11-11-2023 Hepatitis B surface antibody level LDL CHOLESTEROL [facility] Start: 11-06-2023 Advance Directive Discussion Advance Directive Discussion [facility] Start: 11-06-2023 Behavioral Health Screening Behavioral Health Screening [facility] Start: 11-06-2023 Depression Assessment Depression Ass essment [facility] Start: 09-16-2023 Hemoglobin A1c/Hemoglobin.total in Blood HBA1C [facility] Start: 07-13-2023 Hepatitis B surface antibody level LDL CHOLESTEROL [facility] Start: 07-07-2023 Covid-19 Vaccine () Covid-19 Vaccine () [facility] Start: 07-07-2023 [facility] Start: 05-11-2023 Hemoglobin A1c/Hemoglobin.total in Blood HBA1C [facility] Start: 05-06-2023 Adult depression screening assessment DEPRESSION SCREENING [facility] Start: 03-10-2023 Hepatitis B surface antibody level LDL CHOLESTEROL [facility] Start: 03-02-2023 Adult depression screening assessment DEPRESSION SCREENING [facility] Start: 01-10-2023 Hemoglobin A1c/Hemoglobin.total in Blood HBA1C [facility] Start: 12-12-2022 COVID-19 VACCINE (5 - Pfizer series) COVID-19 VACCINE (5 - Pfizer series) [facility] Start: 11-09-2022 Adult depression screening assessment DEPRESSION SCREENING [facility] Start: 11-06-2022 ADVANCE DIRECTIVE DISCUSSION ADVANCE DIRECTIVE DISCUSSION [facility] Start: 11-06-2022 DEPRESSION ASSESSMENT DEPRESSION ASS ESSMENT [facility] Start: 09-10-2022 Hemoglobin A1c/Hemoglobin.total in Blood HBA1C [facility] Start: 09-04-2022 BP CONTROLLED (<130/80) BP CONTROLLE D (<130/80) [facility] Start: 07-07-2022 Influenza vaccination INFLUENZA (#1) [facility] Start: 06-10-2022 Patient discharge [facility] Work Phone: Start: 06-10-[address] [facility] Work Phone: Start: 06-08-2022 [facility] Work Phone: Start: 06-08-2022 End: 06-08-2022 Referral to service [facility] Work Phone: Start: 06-08-2022 Referral to occupati onal therapist [facility] Work Phone: Start: 06-08-2022 Application of intermittent pneumatic compression device [facility] Work Phone: Start: 06-08-2022 Following clinical pathway protocol [facility] Work Phone: Start: 06-08-2022 Assessment of risk o f venous thromboembolism [facility] Work Phone: Start: 06-08-2022 Catheterization of vein [facility] Work Phone: Start: 06-08-2022 Inhalation therapy procedure [facility] Work Phone: Start: 06-08-2022 Insertion of cathete r into peripheral vein [facility] Work Phone: Start: 06-08-2022 Measuring intake and output [facility] Work Phone: Start: 06-08-2022 Providing care accor ding to standard [facility] Work Phone: Start: 06-08-2022 Provision of activit y privileges [facility] Work Phone: Start: 06-08-2022 [facility] Work Phone: Start: 06-08-2022 Patient referral to dietitian [facility] Work Phone: Start: 06-07-[address] [facility] Work Phone: Start: 06-07-[address] [facility] Work Phone: Start: 06-07-2022 Smpl repair scalp/neck/ax/genit/trunk 2.6-7.5cm RPR S/N/AX/GEN/TRNK2.6-7.5CM [facility] Work Phone: Start: 03-10-2022 Hemoglobin A1c/Hemoglobin.total in Blood HBA1C [facility] Start: 12-15-2021 COVID-19 VACCINE (4 - Booster for Pfizer series) COVID-19 VACCINE (4 - Booster for Pfizer series) [facility] Start: 11-06-2021 ADVANCE DIRECTIVE DISCUSSION ADVANCE DIRECTIVE DISCUSSION [facility] Start: 11-06-2021 DEPRESSION ASSESSMENT DEPRESSION ASS ESSMENT [facility] Start: 2020 RSV Vaccine (1 - 1-d ose 75+ series) RSV Vaccine (1 - 1-dose 75+ series) [facility] Start: 04-09-2014 Shingrix Vaccine (2 of 3) Gardiner grix Vaccine (2 of 3) [facility] Start: 2010 BONE DENSITY BONE DENSITY [facility] Start: 2010 Bone Density Screening Bone Density Screening [facility] Start: 2010 PNEUMOVAX AGE 65 AND OVER WITH 5YR LOOKBACK (#1) PNEUMOVAX AGE 65 AND OVER WITH 5YR LOOKBACK (#1) [facility] Start: 2010 Screening for osteoporosis Bone Density Screening [facility] Start: 2005 Hepatitis B Vaccine (1 of 3 - Risk 3-dose series) Hepatitis B Vaccine (1 of 3 - Risk 3-dose series) [facility] Start: 2005 RSV Vaccine (1 - 1-d ose 60+ series) RSV Vaccine (1 - 1-dose 60+ series) [facility] Start: 1995 SHINGRIX VACCINE (1 of 2) GARDINER GRIX VACCINE (1 of 2) [facility] Start: 1964 Urine microalbumin profile [facility] Start: 1963 ANNUAL 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 BUFFY DISEASE VISIT ANNUAL PCP TEAM CHRONIC DISEASE VISIT [facility] Start: 1963 Anxiety Screening Anxiety Screening [facility] Start: 1963 BP CONTROLLED (<130/80) BP CONTROLLE D (<130/80) [facility] Start: 1963 Depression Screening Depression Scre ening [facility] Start: 1963 Hepatitis B surface antibody level LDL CHOLESTEROL [facility] Start: 1963 HEPATITIS C SCREENING HEPATITIS C [facility] Start: 1963 Hepatitis C screening Hepatitis C [facility] Start: 1955 3 comp foot exam completed DIABETIC FOOT EXAM [facility] Start: 1955 Diabetic foot examination Diabetic F oot Exam [facility] Start: 1955 Glaucoma screening Dilated Retinal E xam [facility] Start: 1955 Hepatitis B screening URINE AL BUMIN:CREATININE RATIO [facility] Start: 1955 Hepatitis C antibody , confirmatory test DILATED RETINAL EXAM [facility] Start: 1951 Pneumococcal Vaccine : 65+ (1 - PCV) Pneumococcal Vaccine: 65+ (1 - PCV) [facility] Start: 1951 PNEUMOCOCCAL: 65+ (1 - PCV) PNEUMOCOCCAL: 65+ (1 - PCV) [facility] Bacteria identified in Blood by Culture Blood Culture [facility] Work Phone: Blood culture [facility] Work Phone: Patient Education [facility] Work Phone: Patient referral [facility] Work Phone: Vancomycin [Mass/vol ume] in Serum or Plasma --trough [facility] Work Phone: [facility] Immunizations Immunization Date Immunization Notes Care Provider [facility] 08-28-2024 SARS-CoV-2 (COVID-19 ) [id number] MARILEE RODRIGUEZ GENERAL MANAGER FARM-PEOPLESOFT ADMINISTRATOR [address] 08-06-2024 influenza, high dose seasonal, preservative-free; Translations: [Fluad PF Prefilled Syringe ] MARILEE RODRIGUEZ GENERAL MANAGER FARM-PEOPLESOFT ADMINISTRATOR [address] 08-06-2024 influenza virus vaccine, unspecified formulation Jeannie Carter GENERAL MANAGER FARM.PEOPLESOFT ADMINISTRATOR Work Phone: [facility] 08-17-2023 SARS-CoV-2 (COVID-19 ) [id number] MARILEE RODRIGUEZ GENERAL MANAGER FARM-PEOPLESOFT ADMINISTRATOR [address] 07-24-2023 influenza, high dose seasonal, preservative-free; Translations: [Fluad Quadrivalent PF ] MARILEE RODRIGUEZ GENERAL MANAGER FARM-PEOPLESOFT ADMINISTRATOR [address] Comment on above: Early/Late Reason: E angeline/Late Reason: Other: 07-24-2023 influenza virus vaccine, unspecified formulation Jeannie Carter GENERAL MANAGER FARM.PEOPLESOFT ADMINISTRATOR Work Phone: [facility] 08-11-2022 SARS-CoV-2 (CV19)[id number] bivalent vac MARILEE RODRIGUEZ GENERAL MANAGER FARM-PEOPLESOFT ADMINISTRATOR [address] 08-11-2022 influenza virus vaccine, unspecified formulation Gregory Crook PA-C Work Phone: [address] 06-07-2022 tetanus toxoid, redu dianelys diphtheria toxoid, and acellular pertussis vaccine, adsorbed DEN JENZECHARIAHTE Work Phone: [facility] 08-14-2021 SARS-CoV-2 mRNA (tozinameran) vaccine [facility] GENERAL MANAGER FARM-PEOPLESOFT ADMINISTRATOR [facility] Comment on above: Result Comment: 2021: [id number] 08-09-2021 influenza virus vaccine, unspecified formulation [facility] GENERAL MANAGER FARM-PEOPLESOFT ADMINISTRATOR [facility] 08-09-2021 influenza, high dose seasonal, preservative-free DEN JENRETTE Work Phone: [facility] 01-01-2021 SARS-CoV-2 mRNA (tozinameran) vaccine [facility] GENERAL MANAGER FARM-PEOPLESOFT ADMINISTRATOR [facility] Comment on above: Result Comment: 2021: [id number] 12-11-2020 SARS-CoV-2 mRNA (tostevennameran) vaccine ZENAIDA DUPONTUBBLEFIELD GENERAL MANAGER FARM-PEOPLESOFT ADMINISTRATOR [facility] Comment on above: Result Comment: 2021: [id number] 09-09-2020 influenza virus vaccine, unspecified formulation MARILEE WEYANDT GENERAL MANAGER FARM-PEOPLESOFT ADMINISTRATOR [facility] 09-03-2019 influenza virus vaccine, unspecified formulation MARILEE WEYANDT GENERAL MANAGER FARM-PEOPLESOFT ADMINISTRATOR [address] 08-28-2018 influenza virus vaccine, unspecified formulation MARILEE WEYANDT GENERAL MANAGER FARM-PEOPLESOFT ADMINISTRATOR [address] 07-26-2018 influenza virus vaccine, unspecified formulation MARILEE WEYANDT GENERAL MANAGER FARM-PEOPLESOFT ADMINISTRATOR [facility] 07-26-2018 pneumococcal polysaccharide vaccine, 23 valent ZENAIDA [facility] GENERAL MANAGER FARM-PEOPLESOFT ADMINISTRATOR [facility] 08-08-2016 pneumococcal conjuga te vaccine, 13 valent ZENAIDA [facility] GENERAL MANAGER FARM-PEOPLESOFT ADMINISTRATOR [facility] 02-12-2014 zoster vaccine, live ALLEGRA DUPONTUBBLEFIELD GENERAL MANAGER FARM-PEOPLESOFT ADMINISTRATOR [facility] 05-23-2013 pneumococcal polysaccharide vaccine, 23 valent ZENAIDA [facility] GENERAL MANAGER FARM-PEOPLESOFT ADMINISTRATOR [facility] 09-01-2008 influenza virus vaccine, unspecified formulation MARILEE WEYANBRITTNEY GENERAL MANAGER FARM-PEOPLESOFT ADMINISTRATOR [address] 01-15-2004 pneumococcal polysaccharide vaccine, 23 valent ZENAIDA DUMONT GENERAL MANAGER FARM-PEOPLESOFT ADMINISTRATOR [facility] Payers Date Payer Category Payer Medicare [id number] 2025 Private Health Insurance 03 [id number] 2024 Self-pay 2017 Medicare [employer] [place] [id number] 2017-Present [phone] [address] [place] [address] O [id number] 2017 Medicare [employer] [place] [id number] 2017-Present [phone] [address] [place] [address] [facility] [id number] 2017 [place] [id number] 2017 Medicare [id number] 1945 Unknown [id number] [id number]. 2.627 1945 Unknown [id number] 2.16.840.1.154362.3.579. 2.62 1945 Unknown [id number] 2.16.840.1.617714.3.579. 2.62 1945 Unknown [id number] 2.16.840.1.925932.3.579. 2. 1945 Unknown [id number] 2.16.840.1.501824.3.579. 2. 1945 Unknown [id number] 2.16.840.1.400551.3.579. 2. 1945 Unknown [id number] 2.16.840.1.722400.3.579. 2. 1945 Unknown [id number] 2.16.840.1.904748.3.579. 2. 1945 Unknown [id number] 2.16.840.1.122873.3.579. 2. 1945 Unknown [id number] 2.16.840.1.906905.3.579. 2. 1945 Unknown [id number] 2.16.840.1.271694.3.579. 2. 1945 Unknown [id number] 2.16.840.1.985514.3.579. 2. 1945 Unknown [id number] 2.16.840.1.926953.3.579. 2.62 1945 Unknown [id number] Unknown [id number] Unknown [id number] Unknown [id number] Social History Date Type Detail Facility Start: 05-26-2021 End: 09-06-2023 Tobacco smoking status Never smoked tobacco (finding) [facility] Sex Assigned At [facility] Start: 03-08-2018 End: 09-06-2023 Tobacco use and exposure Smokeless tobacco non-user [facility] Start: 05-11-2021 End: 08-27-2024 Alcohol intake Current non-drinker of alcohol (finding) [facility] Start: 1945 Sex Assigned At Female [facility] Start: 02-23-2022 End: 09-01-2022 Exposure to SARS-CoV-2 (event) Not sure [facility] Work Phone: Start: 05-17-2022 End: 09-03-2022 Tobacco smoking status NHIS Unknown if ever smoked [facility] Start: 04-05-2023 End: 04-21-2023 History of Social function [facility] Start: 04-05-2023 End: 04-21-2023 Patient Health Questionnaire 2 item (PHQ-2) [Reported] [facility] Start: 12-07-2017 Adult Depression Screening Assessment 3 [facility] Start: 01-13-2021 Gender identity Identifies as female gender (finding) [facility] Start: 01-13-2021 Sexual orientation Heterosexual (finding) [facility] Start: 07-24-2023 Tobacco smoking status Ex-smoker (finding) [facility] Start: 12-15-2005 Sex Female (finding) [facility] Medical Equipment Procedure Code Equipment Code Equipment Origin al Text Equipment Identifier Dates Ipg Dual Infty 5 Dbs Bi Ltl - [id number] Start: 03-16-2021 Kit Ld Dbs Infty 40cm Blk 0.5 - [id number] Start: 02-19-2021 Kit Ld Dbs Infty 40cm Blk 0.5 - [id number] Start: 03-08-2021 Accy [facility]vr [facility] - [id number] Start: 03-08-2021 [facility]y [facility] - [id number] Start: 03-08-2021 Ipg Dual Infty 5 Dbs Bi Ltl - [id number] Start: 09-19-2023 See Instructions , Freestyle lite test strips- test blood sugar once a day- E11.9 non insulin dependent, # 100 EA, 5 Refill(s), Pharmacy: [facility]/pharmacy #[id number], 152.4, cm, 07/24/23 13:37:00 EDT, Height, 52.8, kg, 07/24/23 13:37:00 EDT, Dosing Weight Start: 08-01-2023 See Instructions , Lancets 28G to test blood sugar once a day- E11.9 non insulin dependent, # 100 EA, 5 Refill(s), Pharmacy: [facility]/pharmacy #[id number], 152.4, cm, 07/24/23 13:37:00 EDT, Height, 52.8, kg, 07/24/23 13:37:00 EDT, Dosing Weight Start: 08-01-2023 Goals Date Patient Goal Desired Activity /State Functional Status Date Assessment Result Facility 06-10-2022 Functional status Ambulates;Bath room [employer]ilege [facility] Work Phone: 02-09-2022 [facility] Functional Status Manny Ho [facility] 02-08-2022 Functional Status Manny Ho mariam [facility] 02-08-2022 Functional Status Manny Ho mariam [facility] 02-08-2022 Functional Status Manny Ho mariam [facility] 02-07-2022 Functional Status Manny Ho mariam [facility] 02-07-2022 Functional Status Manny Ho mariam [facility] 02-07-2022 Functional Status Manny Ho mari[facility] 02-07-2022 Functional Status Manny Ho mariam [facility] 02-07-2022 Functional Status Manny Ho mari[facility] 02-07-2022 Functional Status Manny Ho m[facility] 02-06-2022 Functional Status Manny Ho mariam [facility] 02-05-2022 Functional Status Manny Ho mari[facility] 02-05-2022 Functional Status Manny Ho mariam [facility] 02-05-2022 Functional Status Manny Ho mariam [facility] 02-05-2022 Functional Status Manny Ho mariam [facility] 02-04-2022 Functional Status Manny Ho mariam [facility] 02-04-2022 Functional Status Manny Ho mariam [facility] 02-04-2022 Functional Status Manny Ho mariam [facility] 02-03-2022 Functional Status Manny Ho mariam [facility] 02-03-2022 Functional Status [facility] Functional Status Manny Ho mariam [facility] 02-03-2022 Functional Status Manny Ho mariam [facility] 02-03-2022 Functional Status [facility]02-[facility]22 Functional Status [facility]-02-2022 Functional Status [facility]02-[facility]22 Functional Status [facility] 02-02-2022 Functional Status Manny Ho m[facility] 02-02-2022 Functional Status [facility] 02-02-2022 Functional Status Manny Ho m[facility] 02-02-2022 Functional Status Manny Ho mariam [facility] 02-02-2022 Functional Status Manny Ho mariam [facility] 02-02-2022 Functional Status Manny Ho mariam [facility] 02-01-2022 Functional Status [facility]01[facility] Functional Status Manny [facility] 01-31-2022 Functional Status Manny [facility] 02-22-2021 Are you deaf, or do you have serious difficulty hearing No 02/22/2021 11:27 AM Deb Ponce RN No [facility] 02-22-2021 Are you blind, or do you have serious difficulty seeing, even when wearing glasses No 02/22/2021 11:27 AM Deb Ponce RN No [facility] 02-22-2021 Do you have serious difficulty walking or climbing stairs Yes 02/22/2021 11:27 AM Deb Ponce, SHENA Yes [facility] 02-22-2021 Do you have difficul ty dressing or bathing Yes 02/22/2021 11:27 AM Deb Ponce, SHENA Yes [facility] 02-22-2021 Because of a physica l, mental, or emotional condition, do you have difficulty doing errands alone such as visiting a physician's office or shopping Yes 02/22/2021 11:27 AM Deb Ponce RN Yes [facility] Mental Status Date Assessment Result Facility 06-10-2022 Cognitive function Cooperative [facility] Work Phone: 05-17-2022 Cognitive function Awake;Alert;A ppropriate;Fo llows Commands [facility] Work Phone: 02-09-2022 Mental Status [facility] 02-09-2022 Mental Status [facility] 02-09-2022 Mental Status Manny [facility] 02-08-2022 Mental Status [facility] 02-03-2022 Mental Status Manny [facility] 02-03-2022 [facility] Mental Status Manny [facility] 02-02-2022 Mental Status Manny [facility] 02-22-2021 Because of a physica l, mental, or emotional condition, do you have serious difficulty concentrating, remembering, or making decisions No 02/22/2021 11:27 AM EDT Deb Murray RN [facility] Clinical Notes 03-08-2021 to 08-22-2025 Gisela Harman - 06/26/2025 10:08 AM EDMarty Paredes - 05/22/2025 1:25 PM EDTTelephone Encounter - Marilee Alcala [facility] - 05/20/2025 1:59 PM EDFrancisco J Suero - 04/24/2025 11:36 AM EDT Note Date & Type Note Facility 08-22-2025 Note HNO ID: [id number] Author: ?, ?, ? Service: ? Author Type: ? Type: Progress Notes Filed: 08/22/2025 11:04 Note Text: [facility] Assessment Medication(s): Nuplazid Patient's current medication list and adherence status to current therapy were reviewed by Specialty Pharmacy clinical pharmacist to identify any new drug interactions or non-compliance to therapy. Therapy continues to be appropriate for disease, patient response, and medical condition. Verification of therapeutic benefit and effectiveness with current therapy was completed. Adverse events, barriers in adherence, and side effects were assessed and addressed if applicable. Will proceed with refill with no changes in therapy - patient progressing towards achieving therapeutic goals based on medication-specific laboratory parameters, disease state markers and outcomes. Office/provider notes have been reviewed prior to dispensing the medication. 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 Patient confirmed: Yes Med/dose confirmed: Yes Supplies needed: No supplies needed Missed doses: No Estimated days supply on hand: 8 Next cycle/dose due: 08/22/25 Copay amount: 0 Payment confirmed: Yes Delivery method: FedEx Signature required: Waived on patient request Delivery Address Options from [facility]: [facility] Home Delivery Address Calculated: [id number], [place] [address] Delivery date: 08/27/25 Questions or concerns for the pharmacist?: No Did you have any side effects believed to be related to this medication, that resulted in hospitalization?: No Current Outpatient Medications on File Prior to Visit Medication Sig traZODone (DESYREL) 50 mg tablet Take 1 tablet by mouth daily at bedtime. QUEtiapine (SEROQUEL) 25 mg tablet Take 1 tablet by mouth daily at bedtime. pimavanserin (NUPLAZID) 34 mg capsule Take 1 capsule by mouth daily at bedtime. ferrous sulfate (IRON ORAL) Take 65 mg by mouth. Pt takes 1 tab 3x a week. rasagiline (AZILECT) 1 mg tab take 1 tablet by mouth every day pantoprazole DR (PROTONIX) 20 mg tablet Take 20 mg by mouth once daily. vitamin A/vitamin D3 (NATURAL VITAMIN D ORAL) Take 2,000 Units by mouth. Calcium Carbonate 650 mg calcium (1,625 mg) tablet Take 650 mg by mouth three times daily with meals. FLUoxetine (PROZAC) 40 mg capsule Take 40 mg by mouth once daily. Ibandronate 150 mg tablet Take 150 mg by mouth once every month. multivitamin with minerals (MULTIPLE VITAMINS 55 PLUS ORAL) once daily. levothyroxine (SYNTHROID) 50 mcg tablet Take 1 tablet by mouth once daily. atorvastatin (LIPITOR) 80 mg tablet Take 80 mg by mouth once daily. No current facility-administered medications on file prior to visit. [facility] CLINICAL ASSESSMENT - NEUROLOGY V7: Assessment to use: Refill Date of influenza vaccination reminder: 07/12/2024 Date of most recent vaccination assessment: 07/12/2024 Treatment Plan Information: Nuplazid (pimvanserin) Parkinsons Disease Psychosis: Take 34 mg po once daily May take 4-6 weeks to be effective. May be administered without regard to food. Capsules may be swallowed whole or entire contents emptied onto 1 tablespoonful (15 mL) of applesauce, yogurt, pudding, or liquid nutritional supplement to be used immediately without chewing; Potential SE: upset stomach Seek treatment immediately if : allergic reaction, dizziness/passingout, abnormal heartbeat, swelling in arms/legs. New or Worsening hallucinations, Feeling confused Monitoring: Adherence, CMP LFT, CBC, ECG as clinical indicated (dose increase or new Qtc prolonging med, or cardiac risk factors) DDI: Vaccine Assessment Est. Tx Plan Start Date: No information available Estimated Start Date Info: No information available Est. Estimated Treatment Duration: No information available Manjula [facility] 07-29-2025 Note HNO ID: [id number] Author: ?, ?, ? Service: ? Author Type: ? Type: Progress Notes Filed: 07/29/2025 12:11 Note Text: [facility] Assessment Medication(s): Nuplazid Patient's current medication list and adherence status to current therapy were reviewed by Specialty Pharmacy clinical pharmacist to identify any new drug interactions or non-compliance to therapy. Therapy continues to be appropriate for disease, patient response, and medical condition. Verification of therapeutic benefit and effectiveness with current therapy was completed. Adverse events, barriers in adherence, and side effects were assessed and addressed if applicable. Will proceed with refill with no changes in therapy - patient progressing towards achieving therapeutic goals based on medication-specific laboratory parameters, disease state markers and outcomes. Office/provider notes have been reviewed prior to dispensing the medication. 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 Patient confirmed: Yes Med/dose confirmed: Yes Missed doses: No Estimated days supply on hand: 8 Next cycle/dose due: 07/30/25 Copay amount: 0 Delivery method: FedEx Signature required: Waived on patient request Delivery Address Options from [facility]: [facility] Home Delivery Address Calculated: [id number], [place] [address] Delivery date: 07/31/25 Questions or concerns for the pharmacist?: No Did you have any side effects believed to be related to this medication, that resulted in hospitalization?: No Current Outpatient Medications on File Prior to Visit Medication Sig traZODone (DESYREL) 50 mg tablet Take 1 tablet by mouth daily at bedtime. QUEtiapine (SEROQUEL) 25 mg tablet Take 1 tablet by mouth daily at bedtime. pimavanserin (NUPLAZID) 34 mg capsule Take 1 capsule by mouth daily at bedtime. ferrous sulfate (IRON ORAL) Take 65 mg by mouth. Pt takes 1 tab 3x a week. rasagiline (AZILECT) 1 mg tab take 1 tablet by mouth every day pantoprazole DR (PROTONIX) 20 mg tablet Take 20 mg by mouth once daily. vitamin A/vitamin D3 (NATURAL VITAMIN D ORAL) Take 2,000 Units by mouth. Calcium Carbonate 650 mg calcium (1,625 mg) tablet Take 650 mg by mouth three times daily with meals. FLUoxetine (PROZAC) 40 mg capsule Take 40 mg by mouth once daily. Ibandronate 150 mg tablet Take 150 mg by mouth once every month. multivitamin with minerals (MULTIPLE VITAMINS 55 PLUS ORAL) once daily. levothyroxine (SYNTHROID) 50 mcg tablet Take 1 tablet by mouth once daily. atorvastatin (LIPITOR) 80 mg tablet Take 80 mg by mouth once daily. No current facility-administered medications on file prior to visit. [facility] CLINICAL ASSESSMENT - NEUROLOGY V7: Assessment to use: Refill Date of influenza vaccination reminder: 07/12/2024 Date of most recent vaccination assessment: 07/12/2024 Treatment Plan Information: Nuplazid (pimvanserin) Parkinsons Disease Psychosis: Take 34 mg po once daily May take 4-6 weeks to be effective. May be administered without regard to food. Capsules may be swallowed whole or entire contents emptied onto 1 tablespoonful (15 mL) of applesauce, yogurt, pudding, or liquid nutritional supplement to be used immediately without chewing; Potential SE: upset stomach Seek treatment immediately if : allergic reaction, dizziness/passingout, abnormal heartbeat, swelling in arms/legs. New or Worsening hallucinations, Feeling confused Monitoring: Adherence, CMP LFT, CBC, ECG as clinical indicated (dose increase or new Qtc prolonging med, or cardiac risk factors) DDI: Vaccine Assessment Est. Tx Plan Start Date: No information available Estimated Start Date Info: No information available Est. Estimated Treatment Duration: No information available Gisela Harman CPhT [facility], Neurology, Cardiology, AND Infectious Disease P: [phone] F: [phone] [facility] 06-26-2025 History of Presen t illness Narrative [facility] Medication(s): Nuplazid Patient's current medication list and adherence status to current therapy were reviewed by Specialty Pharmacy clinical pharmacist to identify any new drug interactions or non-compliance to therapy. Therapy continues to be appropriate for disease, patient response, and medical condition. Verification of therapeutic benefit and effectiveness with current therapy was completed. Adverse events, barriers in adherence, and side effects were assessed and addressed if applicable. Will proceed with refill with no changes in therapy - patient progressing towards achieving therapeutic goals based on medication-specific laboratory parameters, disease state markers and outcomes. Office/provider notes have been reviewed prior to dispensing the medication. 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 Patient confirmed: Yes Med/dose confirmed: Yes Missed doses: No Estimated days supply on hand: 11 Next cycle/dose due: 06/27/25 Copay amount: 0 Delivery method: FedEx Signature required: Waived on patient request Delivery Address Options from [facility]: [facility] Home Delivery Address Calculated: [id number], [place] [address] Delivery date: 07/03/25 Questions or concerns for the pharmacist?: No Did you have any side effects believed to be related to this medication, that resulted in hospitalization?: No Current Outpatient Medications on File Prior to Visit Medication Sig QUEtiapine (SEROQUEL) 25 mg tablet Take 1 tablet by mouth daily at bedtime. pimavanserin (NUPLAZID) 34 mg capsule Take 1 capsule by mouth daily at bedtime. ferrous sulfate (IRON ORAL) Take 65 mg by mouth. Pt takes 1 tab 3x a week. rasagiline (AZILECT) 1 mg tab take 1 tablet by mouth every day pantoprazole DR (PROTONIX) 20 mg tablet Take 20 mg by mouth once daily. vitamin A/vitamin D3 (NATURAL VITAMIN D ORAL) Take 2,000 Units by mouth. Calcium Carbonate 650 mg calcium (1,625 mg) tablet Take 650 mg by mouth three times daily with meals. FLUoxetine (PROZAC) 40 mg capsule Take 40 mg by mouth once daily. Ibandronate 150 mg tablet Take 150 mg by mouth once every month. multivitamin with minerals (MULTIPLE VITAMINS 55 PLUS ORAL) once daily. levothyroxine (SYNTHROID) 50 mcg tablet Take 1 tablet by mouth once daily. atorvastatin (LIPITOR) 80 mg tablet Take 80 mg by mouth once daily. No current facility-administered medications on file prior to visit. [facility] CLINICAL ASSESSMENT - NEUROLOGY V7: Assessment to use: Refill Date of influenza vaccination reminder: 07/12/2024 Date of most recent vaccination assessment: 07/12/2024 Treatment Plan Information: Nuplazid (pimvanserin) Parkinsons Disease Psychosis: Take 34 mg po once daily May take 4-6 weeks to be effective. May be administered without regard to food. Capsules may be swallowed whole or entire contents emptied onto 1 tablespoonful (15 mL) of applesauce, yogurt, pudding, or liquid nutritional supplement to be used immediately without chewing; Potential SE: upset stomach Seek treatment immediately if : allergic reaction, dizziness/passingout, abnormal heartbeat, swelling in arms/legs. New or Worsening hallucinations, Feeling confused Monitoring: Adherence, CMP LFT, CBC, ECG as clinical indicated (dose increase or new Qtc prolonging med, or cardiac risk factors) DDI: Vaccine Assessment Est. Tx Plan Start Date: No information available Estimated Start Date Info: No information available Est. Estimated Treatment Duration: No information available Gisela Harman CPhT [facility], Neurology, Cardiology, & Infectious Disease P: [phone] F: [phone] documented in this encounter [facility] 06-26-2025 Note HNO ID: [id number] Author: ?, ?, ? Service: ? Author Type: ? Type: Progress Notes Filed: 06/26/2025 10:10 Note Text: [facility] Refill Assessment Medication(s): Nuplazid Patient's current medication list and adherence status to current therapy were reviewed by Specialty Pharmacy clinical pharmacist to identify any new drug interactions or non-compliance to therapy. Therapy continues to be appropriate for disease, patient response, and medical condition. Verification of therapeutic benefit and effectiveness with current therapy was completed. Adverse events, barriers in adherence, and side effects were assessed and addressed if applicable. Will proceed with refill with no changes in therapy - patient progressing towards achieving therapeutic goals based on medication-specific laboratory parameters, disease state markers and outcomes. Office/provider notes have been reviewed prior to dispensing the medication. 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 Patient confirmed: Yes Med/dose confirmed: Yes Missed doses: No Estimated days supply on hand: 11 Next cycle/dose due: 06/27/25 Copay amount: 0 Delivery method: FedEx Signature required: Waived on patient request Delivery Address Options from [facility]: [facility] Home Delivery Address Calculated: [id number] , [place] [address] Delivery date: 07/03/25 Questions or concerns for the pharmacist?: No Did you have any side effects believed to be related to this medication, that resulted in hospitalization?: No Current Outpatient Medications on File Prior to Visit Medication Sig QUEtiapine (SEROQUEL) 25 mg tablet Take 1 tablet by mouth daily at bedtime. pimavanserin (NUPLAZID) 34 mg capsule Take 1 capsule by mouth daily at bedtime. ferrous sulfate (IRON ORAL) Take 65 mg by mouth. Pt takes 1 tab 3x a week. rasagiline (AZILECT) 1 mg tab take 1 tablet by mouth every day pantoprazole DR (PROTONIX) 20 mg tablet Take 20 mg by mouth once daily. vitamin A/vitamin D3 (NATURAL VITAMIN D ORAL) Take 2,000 Units by mouth. Calcium Carbonate 650 mg calcium (1,625 mg) tablet Take 650 mg by mouth three times daily with meals. FLUoxetine (PROZAC) 40 mg capsule Take 40 mg by mouth once daily. Ibandronate 150 mg tablet Take 150 mg by mouth once every month. multivitamin with minerals (MULTIPLE VITAMINS 55 PLUS ORAL) once daily. levothyroxine (SYNTHROID) 50 mcg tablet Take 1 tablet by mouth once daily. atorvastatin (LIPITOR) 80 mg tablet Take 80 mg by mouth once daily. No current facility-administered medications on file prior to visit. [facility] CLINICAL ASSESSMENT - NEUROLOGY V7: Assessment to use: Refill Date of influenza vaccination reminder: 07/12/2024 Date of most recent vaccination assessment: 07/12/2024 Treatment Plan Information: Nuplazid (pimvanserin) Parkinsons Disease Psychosis: Take 34 mg po once daily May take 4-6 weeks to be effective. May be administered without regard to food. Capsules may be swallowed whole or entire contents emptied onto 1 tablespoonful (15 mL) of applesauce, yogurt, pudding, or liquid nutritional supplement to be used immediately without chewing; Potential SE: upset stomach Seek treatment immediately if : allergic reaction, dizziness/passingout, abnormal heartbeat, swelling in arms/legs. New or Worsening hallucinations, Feeling confused Monitoring: Adherence, CMP LFT, CBC, ECG as clinical indicated (dose increase or new Qtc prolonging med, or cardiac risk factors) DDI: Vaccine Assessment Est. Tx Plan Start Date: No information available Estimated Start Date Info: No information available Est. Estimated Treatment Duration: No information available Gisela Harman CPhT [facility], Neurology, Cardiology, AND Infectious Disease P: [phone] F: [phone] [facility] 05-22-2025 History of Presen t illness Narrative [facility] Medication(s): Nuplazid Patient's current medication list and adherence status to current therapy were reviewed by Specialty Pharmacy clinical pharmacist to identify any new drug interactions or non-compliance to therapy. Therapy continues to be appropriate for disease, patient response, and medical condition. Verification of therapeutic benefit and effectiveness with current therapy was completed. Adverse events, barriers in adherence, and side effects were assessed and addressed if applicable. Will proceed with refill with no changes in therapy - patient progressing towards achieving therapeutic goals based on medication-specific laboratory parameters, disease state markers and outcomes. Office/provider notes have been reviewed prior to dispensing the medication. 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 Patient confirmed: Yes Med/dose confirmed: Yes Supplies needed: No supplies needed Missed doses: No Estimated days supply on hand: 13 Copay amount: 0 Payment confirmed: Yes Delivery method: e27 Delivery address: [address] [place] [id number] Delivery date: 05/26/25 Questions or concerns for the pharmacist?: No Did you have any side effects believed to be related to this medication, that resulted in hospitalization?: No Current Outpatient Medications on File Prior to Visit Medication Sig pimavanserin (NUPLAZID) 34 mg capsule Take 1 capsule by mouth daily at bedtime. ferrous sulfate (IRON ORAL) Take 65 mg by mouth. Pt takes 1 tab 3x a week. rasagiline (AZILECT) 1 mg tab take 1 tablet by mouth every day pantoprazole DR (PROTONIX) 20 mg tablet Take 20 mg by mouth once daily. vitamin A/vitamin D3 (NATURAL VITAMIN D ORAL) Take 2,000 Units by mouth. Calcium Carbonate 650 mg calcium (1,625 mg) tablet Take 650 mg by mouth three times daily with meals. FLUoxetine (PROZAC) 40 mg capsule Take 40 mg by mouth once daily. Ibandronate 150 mg tablet Take 150 mg by mouth once every month. multivitamin with minerals (MULTIPLE VITAMINS 55 PLUS ORAL) once daily. levothyroxine (SYNTHROID) 50 mcg tablet Take 1 tablet by mouth once daily. atorvastatin (LIPITOR) 80 mg tablet Take 80 mg by mouth once daily. No current facility-administered medications on file prior to visit. [facility] CLINICAL ASSESSMENT - NEUROLOGY V7: Assessment to use: Refill Date of influenza vaccination reminder: 07/12/2024 Date of most recent vaccination assessment: 07/12/2024 Treatment Plan Information: Nuplazid (pimvanserin) Parkinsons Disease Psychosis: Take 34 mg po once daily May take 4-6 weeks to be effective. May be administered without regard to food. Capsules may be swallowed whole or entire contents emptied onto 1 tablespoonful (15 mL) of applesauce, yogurt, pudding, or liquid nutritional supplement to be used immediately without chewing; Potential SE: upset stomach Seek treatment immediately if : allergic reaction, dizziness/passingout, abnormal heartbeat, swelling in arms/legs. New or Worsening hallucinations, Feeling confused Monitoring: Adherence, CMP LFT, CBC, ECG as clinical indicated (dose increase or new Qtc prolonging med, or cardiac risk factors) DDI: Vaccine Assessment Est. Tx Plan Start Date: No information available Estimated Start Date Info: No information available Est. Estimated Treatment Duration: No information available Marty Puente documented in this encounter [facility] 05-22-2025 Note HNO ID: [id number] Author: JONATHAN JUAN RPh Service: ? Author Type: ? Type: Progress Notes Filed: 05/27/2025 08:15 Note Text: [facility] Refill Assessment Medication(s): Nuplazid Patient's current medication list and adherence status to current therapy were reviewed by Specialty Pharmacy clinical pharmacist to identify any new drug interactions or non-compliance to therapy. Therapy continues to be appropriate for disease, patient response, and medical condition. Verification of therapeutic benefit and effectiveness with current therapy was completed. Adverse events, barriers in adherence, and side effects were assessed and addressed if applicable. Will proceed with refill with no changes in therapy - patient progressing towards achieving therapeutic goals based on medication-specific laboratory parameters, disease state markers and outcomes. Office/provider notes have been reviewed prior to dispensing the medication. Jonathan Juan, PharmD, CSP, MSCS Pharmacist, [facility] Specialty Payroll And Benefits Assistant Assessment Patient confirmed: Yes Med/dose confirmed: Yes Supplies needed: No supplies needed Missed doses: No Estimated days supply on hand: Copay amount: 0 Payment confirmed: Yes Delivery method: FedEx Delivery address: [id number] [facility] [address] Delivery date: 05/26/25 Questions or concerns for the pharmacist?: No Did you have any side effects believed to be related to this medication, that resulted in hospitalization?: No Current Outpatient Medications on File Prior to Visit Medication Sig pimavanserin (NUPLAZID) 34 mg capsule Take 1 capsule by mouth daily at bedtime. ferrous sulfate (IRON ORAL) Take 65 mg by mouth. Pt takes 1 tab 3x a week. rasagiline (AZILECT) 1 mg tab take 1 tablet by mouth every day pantoprazole DR (PROTONIX) 20 mg tablet Take 20 mg by mouth once daily. vitamin A/vitamin D3 (NATURAL VITAMIN D ORAL) Take 2,000 Units by mouth. Calcium Carbonate 650 mg calcium (1,625 mg) tablet Take 650 mg by mouth three times daily with meals. FLUoxetine (PROZAC) 40 mg capsule Take 40 mg by mouth once daily. Ibandronate 150 mg tablet Take 150 mg by mouth once every month. multivitamin with minerals (MULTIPLE VITAMINS 55 PLUS ORAL) once daily. levothyroxine (SYNTHROID) 50 mcg tablet Take 1 tablet by mouth once daily. atorvastatin (LIPITOR) 80 mg tablet Take 80 mg by mouth once daily. No current facility-administered medications on file prior to visit. [facility] CLINICAL ASSESSMENT - NEUROLOGY V7: Assessment to use: Refill Assessment of injection issues or necrosis at injection sites: N/A Screening for infection: Yes Drug specific assessments, as appropriate: Yes Current medication list (including drug interaction assessment): Yes Experience of adverse reactions to the medication: Yes Date of influenza vaccination reminder: 07/12/2024 Date of most recent vaccination assessment: 07/12/2024 Treatment Plan Information: Nuplazid (pimvanserin) Parkinsons Disease Psychosis: Take 34 mg po once daily May take 4-6 weeks to be effective. May be administered without regard to food. Capsules may be swallowed whole or entire contents emptied onto 1 tablespoonful (15 mL) of applesauce, yogurt, pudding, or liquid nutritional supplement to be used immediately without chewing; Potential SE: upset stomach Seek treatment immediately if : allergic reaction, dizziness/passingout, abnormal heartbeat, swelling in arms/legs. New or Worsening hallucinations, Feeling confused Monitoring: Adherence, CMP LFT, CBC, ECG as clinical indicated (dose increase or new Qtc prolonging med, or cardiac risk factors) DDI: Vaccine Assessment Est. Tx Plan Start Date: No information available Estimated Start Date Info: No information available Est. Estimated Treatment Duration: No information available Luisagabriela Puente [facility] 05-20-2025 Telephone encounter Note The patient is in need of a new prescription: Requested Prescriptions Pending Prescriptions Disp Refills pimavanserin (NUPLAZID) 34 mg capsule 30 capsule 5 Sig: Take 1 capsule by mouth daily at bedtime. Last OV 04/17/25. Thank you, Marilee Alcala PharmD, BCPS Pharmacist, [facility] 05-20-2025 Miscellaneous Notes The patient is in need of a new prescription: Requested Prescriptions Pending Prescriptions Disp Refills pimavanserin (NUPLAZID) 34 mg capsule 30 capsule 5 Sig: Take 1 capsule by mouth daily at bedtime. Last OV 04/17/25. Thank you, Marilee Alcala PharmD, BCPS Pharmacist, [facility] documented in this encounter [facility] 04-24-2025 History of Presen t illness Narrative [facility] Refill Assessment Medication(s): Nuplazid Patient's current medication list and adherence status to current therapy were reviewed by Specialty Pharmacy clinical pharmacist to identify any new drug interactions or non-compliance to therapy. Therapy continues to be appropriate for disease, patient response, and medical condition. Verification of therapeutic benefit and effectiveness with current therapy was completed. Adverse events, barriers in adherence, and side effects were assessed and addressed if applicable. Will proceed with refill with no changes in therapy - patient progressing towards achieving therapeutic goals based on medication-specific laboratory parameters, disease state markers and outcomes. Office/provider notes have been reviewed prior to dispensing the medication. 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 Patient confirmed: Yes Med/dose confirmed: Yes Missed doses: No Estimated days supply on hand: 9 Next cycle/dose due: 04/25/25 Copay amount: 0 Delivery method: FedEx Signature required: Waived on patient request Delivery address: [address] [place], [place] [address] [address] Delivery date: 04/28/25 Questions or concerns for the pharmacist?: No Did you have any side effects believed to be related to this medication, that resulted in hospitalization?: No Current Outpatient Medications on File Prior to Visit Medication Sig pimavanserin (NUPLAZID) 34 mg capsule Take 1 capsule by mouth daily at bedtime. ferrous sulfate (IRON ORAL) Take 65 mg by mouth. Pt takes 1 tab 3x a week. rasagiline (AZILECT) 1 mg tab take 1 tablet by mouth every day pantoprazole DR (PROTONIX) 20 mg tablet Take 20 mg by mouth once daily. vitamin A/vitamin D3 (NATURAL VITAMIN D ORAL) Take 2,000 Units by mouth. Calcium Carbonate 650 mg calcium (1,625 mg) tablet Take 650 mg by mouth three times daily with meals. FLUoxetine (PROZAC) 40 mg capsule Take 40 mg by mouth once daily. Ibandronate 150 mg tablet Take 150 mg by mouth once every month. multivitamin with minerals (MULTIPLE VITAMINS 55 PLUS ORAL) once daily. levothyroxine (SYNTHROID) 50 mcg tablet Take 1 tablet by mouth once daily. atorvastatin (LIPITOR) 80 mg tablet Take 80 mg by mouth once daily. No current facility-administered medications on file prior to visit. [facility] CLINICAL ASSESSMENT - NEUROLOGY V7: Assessment to use: Refill Assessment of injection issues or necrosis at injection sites: N/A Screening for infection: Yes Drug specific assessments, as appropriate: Yes Current medication list (including drug interaction assessment): Yes Experience of adverse reactions to the medication: Yes Date of influenza vaccination reminder: 07/12/2024 Date of most recent vaccination assessment: 07/12/2024 Treatment Plan Information: Nuplazid (pimvanserin) Parkinsons Disease Psychosis: Take 34 mg po once daily May take 4-6 weeks to be effective. May be administered without regard to food. Capsules may be swallowed whole or entire contents emptied onto 1 tablespoonful (15 mL) of applesauce, yogurt, pudding, or liquid nutritional supplement to be used immediately without chewing; Potential SE: upset stomach Seek treatment immediately if : allergic reaction, dizziness/passingout, abnormal heartbeat, swelling in arms/legs. New or Worsening hallucinations, Feeling confused Monitoring: Adherence, CMP LFT, CBC, ECG as clinical indicated (dose increase or new Qtc prolonging med, or cardiac risk factors) DDI: Vaccine Assessment Est. Tx Plan Start Date: No information available Estimated Start Date Info: No information available Est. Estimated Treatment Duration: No information available Francisco J Woodward CPhT Neurology, Cardiology & Infectious Disease [facility] Marilee Alcala PharmD, BCPS Pharmacist, [facility] documented in this encounter [facility] 04-24-2025 Note HNO ID: [id number] Author: MARILEE ALCALA RPh Service: ? Author Type: ? Type: Progress Notes Filed: 04/24/2025 14:39 Note Text: [facility] Refill Assessment Medication(s): Nuplazid Patient's current medication list and adherence status to current therapy were reviewed by Specialty Pharmacy clinical pharmacist to identify any new drug interactions or non-compliance to therapy. Therapy continues to be appropriate for disease, patient response, and medical condition. Verification of therapeutic benefit and effectiveness with current therapy was completed. Adverse events, barriers in adherence, and side effects were assessed and addressed if applicable. Will proceed with refill with no changes in therapy - patient progressing towards achieving therapeutic goals based on medication-specific laboratory parameters, disease state markers and outcomes. Office/provider notes have been reviewed prior to dispensing the medication. 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 Patient confirmed: Yes Med/dose confirmed: Yes Missed doses: No Estimated days supply on hand: 9 Next cycle/dose due: 04/25/25 Copay amount: 0 Delivery method: FedEx Signature required: Waived on patient request Delivery address: [address] [place] [id number] Delivery date: 04/28/25 Questions or concerns for the pharmacist?: No Did you have any side effects believed to be related to this medication, that resulted in hospitalization?: No Current Outpatient Medications on File Prior to Visit Medication Sig pimavanserin (NUPLAZID) 34 mg capsule Take 1 capsule by mouth daily at bedtime. ferrous sulfate (IRON ORAL) Take 65 mg by mouth. Pt takes 1 tab 3x a week. rasagiline (AZILECT) 1 mg tab take 1 tablet by mouth every day pantoprazole DR (PROTONIX) 20 mg tablet Take 20 mg by mouth once daily. vitamin A/vitamin D3 (NATURAL VITAMIN D ORAL) Take 2,000 Units by mouth. Calcium Carbonate 650 mg calcium (1,625 mg) tablet Take 650 mg by mouth three times daily with meals. FLUoxetine (PROZAC) 40 mg capsule Take 40 mg by mouth once daily. Ibandronate 150 mg tablet Take 150 mg by mouth once every month. multivitamin with minerals (MULTIPLE VITAMINS 55 PLUS ORAL) once daily. levothyroxine (SYNTHROID) 50 mcg tablet Take 1 tablet by mouth once daily. atorvastatin (LIPITOR) 80 mg tablet Take 80 mg by mouth once daily. No current facility-administered medications on file prior to visit. [facility] CLINICAL ASSESSMENT - NEUROLOGY V7: Assessment to use: Refill Assessment of injection issues or necrosis at injection sites: N/A Screening for infection: Yes Drug specific assessments, as appropriate: Yes Current medication list (including drug interaction assessment): Yes Experience of adverse reactions to the medication: Yes Date of influenza vaccination reminder: 07/12/2024 Date of most recent vaccination assessment: 07/12/2024 Treatment Plan Information: Nuplazid (pimvanserin) Parkinsons Disease Psychosis: Take 34 mg po once daily May take 4-6 weeks to be effective. May be administered without regard to food. Capsules may be swallowed whole or entire contents emptied onto 1 tablespoonful (15 mL) of applesauce, yogurt, pudding, or liquid nutritional supplement to be used immediately without chewing; Potential SE: upset stomach Seek treatment immediately if : allergic reaction, dizziness/passingout, abnormal heartbeat, swelling in arms/legs. New or Worsening hallucinations, Feeling confused Monitoring: Adherence, CMP LFT, CBC, ECG as clinical indicated (dose increase or new Qtc prolonging med, or cardiac risk factors) DDI: Vaccine Assessment Est. Tx Plan Start Date: No information available Estimated Start Date Info: No information available Est. Estimated Treatment Duration: No information available Francisco J Woodward CPhT Neurology, Cardiology AND Infectious Disease [facility] Marilee Alcala PharmD, BCPS Pharmacist, [facility] 04-17-2025 Note HNO ID: [id number] Author: JEANNIE CARTER APRN.VIKTOR Service: ? Author Type: Nurse Practitioner Type: Progress Notes Filed: 04/17/2025 12:55 Note Text: [facility] - FOLLOW UP EVALUATION - VIRTUAL VISIT We had a visit using: [employer] I have communicated my name and active licensure. The patient's identity and physical location were verified at the time of this visit. Either the patient or their legal community relations representative has been informed of the risks and benefits of -- and alternatives to -- treatment through a remote evaluation and consents to proceed with the evaluation remotely. Recording using [employer] software for draft documentation of the visit was discussed with the patient/authorized community relations representative; all questions welcomed and answered. Patient/authorized community relations representative agreed to proceed Olu Perez DO, DO [address] [facility] [id number] Dear Olu Perez DO, DO: I had the pleasure of seeing Ms. Prado for follow-up today. As you know she is a 79 year old right-handed female with a history of PD since . Bilateral STN DBS Jones placed 03/2021 Subjective During her previous visit the following plan was made: Previous plan- 08/27/2024 Visit: We are going to try a low dose medication at bedtime. This is called Trazodone and will help with sleep. Please let me know if this helps with reducing nighttime wakings. Please give to her at bedtime when she is ready to fall asleep (in bed). Patient's perception of importance for healthcare provider to let them know of research trials for which they may be eligible? Very Important Interested in clinical research? Not currently Interval History: Tamar Prado is a 79-year-old female with a history of Parkinson's disease, presenting with increased hallucinations. She is accompanied by her , who provides additional history. Tamar has been experiencing daily hallucinations throughout the day for the past two weeks. These include seeing people, animals, and objects in trees, which she believes are real. Her reports that she becomes upset when he cannot see what she sees. Approximately two to three weeks ago, she was treated for a urinary tract infection (UTI) with a one-week course of antibiotics. Her notes that the hallucinations began after the UTI treatment and questions whether the infection was fully resolved. She is currently taking Rasagiline (Azilect) and Pimavanserin (Nuplazid). Trazodone was discontinued some time ago, as she no longer has difficulty sleeping. Most nights, she sleeps through the night, although she occasionally wakes up to use the bathroom. Movement Disorders Medications Schedule - as of the start of the visit: Medications AM PM azilect 1 mg 1 nuplazid 34 mg 1 ALLERGIES Allergen Reactions Ativan [Lorazepam] Mental Status Change Haldol [Haloperidol] Mental Status Change Reglan [Metoclopram* Unknown Amantadine Other: See Comments Constipation, dry mouth Artane Unknown Requip [Ropinirole] Other: See Comments nightmares Sinemet [Carbidopa-* Unknown Current Outpatient Medications Medication Sig pimavanserin (NUPLAZID) 34 mg capsule Take 1 capsule by mouth daily at bedtime. ferrous sulfate (IRON ORAL) Take 65 mg by mouth. Pt takes 1 tab 3x a week. rasagiline (AZILECT) 1 mg tab take 1 tablet by mouth every day pantoprazole DR (PROTONIX) 20 mg tablet Take 20 mg by mouth once daily. vitamin A/vitamin D3 (NATURAL VITAMIN D ORAL) Take 2,000 Units by mouth. Calcium Carbonate 650 mg calcium (1,625 mg) tablet Take 650 mg by mouth three times daily with meals. FLUoxetine (PROZAC) 40 mg capsule Take 40 mg by mouth once daily. Ibandronate 150 mg tablet Take 150 mg by mouth once every month. multivitamin with minerals (MULTIPLE VITAMINS 55 PLUS ORAL) once daily. levothyroxine (SYNTHROID) 50 mcg tablet Take 1 tablet by mouth once daily. atorvastatin (LIPITOR) 80 mg tablet Take 80 mg by mouth once daily. No current facility-administered medications for this visit. Questionnaires: In addition, the following areas that may be affected by abnormal involuntary movements were evaluated: Daily activities Difficulties with eatin (none) Difficulties in dressing: Yes (moderate) Difficulties with hygiene activities: Yes (mild) Difficulties with handwriting: Yes (slight) Difficulties with doing hobbies and other activities: Yes (mild) Difficulties turning in bed: 0 (none) Difficulties getting out of bed, car or chair: Yes (mild) Tremors/Gait/Balance Shaking or tremors: 0 (none) Walking and balance problems: Yes (moderate) Number of falls in the Last Month: none Gait freezin (none) Autonomic/Pain Lightheadeness on standing: Yes (mild) Urinary problems: Yes (moderate) Constipation problems: 0 (none) Pain and other sensations: Yes (mild) Speech/Swallowing Speech problems: Yes (moderate) Droolin (non (more content not included)... [facility] 04-17-2025 History of Presen t illness Narrative [facility] - FOLLOW UP EVALUATION - VIRTUAL VISIT We had a visit using: [employer] I have communicated my name and active licensure. The patient's identity and physical location were verified at the time of this visit. Either the patient or their legal community relations representative has been informed of the risks and benefits of -- and alternatives to -- treatment through a remote evaluation and consents to proceed with the evaluation remotely. Recording using [employer] software for draft documentation of the visit was discussed with the patient/authorized community relations representative; all questions welcomed and answered. Patient/authorized community relations representative agreed to proceed Olu Perez DO, DO [address] [facility] [id number] Dear Olu Perez DO, DO: I had the pleasure of seeing Ms. Prado for follow-up today. As you know she is a 79 year old right-handed female with a history of PD since . Bilateral STN DBS Jones placed 03/2021 Subjective During her previous visit the following plan was made: Previous plan- 08/27/2024 Visit: We are going to try a low dose medication at bedtime. This is called Trazodone and will help with sleep. Please let me know if this helps with reducing nighttime wakings. Please give to her at bedtime when she is ready to fall asleep (in bed). Patient's perception of importance for healthcare provider to let them know of research trials for which they may be eligible? Very Important Interested in clinical research? Not currently Interval History: Tamar Prado is a 79-year-old female with a history of Parkinson's disease, presenting with increased hallucinations. She is accompanied by her , who provides additional history. Tamar has been experiencing daily hallucinations throughout the day for the past two weeks. These include seeing people, animals, and objects in trees, which she believes are real. Her reports that she becomes upset when he cannot see what she sees. Approximately two to three weeks ago, she was treated for a urinary tract infection (UTI) with a one-week course of antibiotics. Her notes that the hallucinations began after the UTI treatment and questions whether the infection was fully resolved. She is currently taking Rasagiline (Azilect) and Pimavanserin (Nuplazid). Trazodone was discontinued some time ago, as she no longer has difficulty sleeping. Most nights, she sleeps through the night, although she occasionally wakes up to use the bathroom. Movement Disorders Medications Schedule - as of the start of the visit: Medications AM PM azilect 1 mg 1 nuplazid 34 mg 1 ALLERGIES Allergen Reactions Ativan [Lorazepam] Mental Status Change Haldol [Haloperidol] Mental Status Change Reglan [Metoclopram* Unknown Amantadine Other: See Comments Constipation, dry mouth Artane Unknown Requip [Ropinirole] Other: See Comments nightmares Sinemet [Carbidopa-* Unknown Current Outpatient Medications Medication Sig pimavanserin (NUPLAZID) 34 mg capsule Take 1 capsule by mouth daily at bedtime. ferrous sulfate (IRON ORAL) Take 65 mg by mouth. Pt takes 1 tab 3x a week. rasagiline (AZILECT) 1 mg tab take 1 tablet by mouth every day pantoprazole DR (PROTONIX) 20 mg tablet Take 20 mg by mouth once daily. vitamin A/vitamin D3 (NATURAL VITAMIN D ORAL) Take 2,000 Units by mouth. Calcium Carbonate 650 mg calcium (1,625 mg) tablet Take 650 mg by mouth three times daily with meals. FLUoxetine (PROZAC) 40 mg capsule Take 40 mg by mouth once daily. Ibandronate 150 mg tablet Take 150 mg by mouth once every month. multivitamin with minerals (MULTIPLE VITAMINS 55 PLUS ORAL) once daily. levothyroxine (SYNTHROID) 50 mcg tablet Take 1 tablet by mouth once daily. atorvastatin (LIPITOR) 80 mg tablet Take 80 mg by mouth once daily. No current facility-administered medications for this visit. Questionnaires: In addition, the following areas that may be affected by abnormal involuntary movements were evaluated: Daily activities Difficulties with eatin (none) Difficulties in dressing: Yes (moderate) Difficulties with hygiene activities: Yes (mild) Difficulties with handwriting: Yes (slight) Difficulties with doing hobbies and other activities: Yes (mild) Difficulties turning in bed: 0 (none) Difficulties getting out of bed, car or chair: Yes (mild) Tremors/Gait/Balance Shaking or tremors: 0 (none) Walking and balance problems: Yes (moderate) Number of falls in the Last Month: none Gait freezin (none) Autonomic/Pain Lightheadeness on standing: Yes (mild) Urinary problems: Yes (moderate) Constipation problems: 0 (none) Pain and other sensations: Yes (mild) Speech/Swallowing Speech problems: Yes (moderate) Droolin (none) Chewing and swallowing problems: Yes (moderate) Sleep/Fatigue Sleep problems: 0 (none) Daytime sleepiness: Yes (mild) Fatigue: Yes (mild) Mood/Behavior Depression: Anxiety: YUE-7 Total Score: 12 usually representing moderate (10-14) anxiety. Finally, the following table shows the patient's overall global physical and mental health using the PROMIS scale: PROMIS-10 Flowsheet Row Distance Health from 04/17/2025 in Neurology Office Visit from 08/27/2024 in Neurology Global Physical Health T Score 29.6 32.4 Global Mental Health T Score 28.4 31.3 0-10 Standard Pain Scale 3 4 *PROMIS-10 scoring scale: mean = 50, over 50 is above average, under 50 is below average Objective Patient alert and cooperative, well groomed, accompanied by spouse Assessment and Plan: Assessment Ms. Prado is a right-handed 79 year old female with Parkinson's disease s/p Jones Bilateral STN DBS in 2020 The following are the current problems noted and addressed during this visit: Parkinson's disease, unspecified whether dyskinesia present, unspecified whether manifestations fluctuate (hcc) (primary encounter diagnosis) Visual hallucinations Plan 04/17/2025 Visit: 1. Parkinson's disease, unspecified whether dyskinesia present, unspecified whether manifestations fluctuate (HCC) (G20.A1) 2. Visual hallucinations (R44.1) - Recent increase in visual hallucinations, occurring daily and believed to be real by the patient. - Recent history of a urinary tract infection treated with antibiotics two to three weeks ago; suspect possible incomplete resolution of the infection. - Advised re-evaluation by primary care physician to rule out persistent or recurrent UTI as a potential cause of increased hallucinations. - Currently on Azilect and Nuplazid; previously on trazodone for sleep, but discontinued due to adequate sleep without it. - Discussed potential for underlying organic causes, including Parkinson's disease progression and fatigue. - Will consider reintroducing previously tried medications if hallucinations persist after ruling out UTI. - Patient and caregiver understand and agree with the plan. Updated Movement Disorder Medication Schedule: Medications AM PM azilect 1 mg 1 nuplazid 34 mg 1 Thank you for allowing me to be part of the clinical care of this patient! I look forward to continued participation in the patient s care with you. Please do not hesitate to call with any questions. Sincerely, Jeannie Carter APRN.PEOPLESOFT ADMINISTRATOR documented in this encounter [facility] 03-24-2025 History of Presen t illness Narrative [facility] Ref[facility] Assessment Medication(s): Nuplazid Patient's current medication list and adherence status to current therapy were reviewed by Specialty Pharmacy clinical pharmacist to identify any new drug interactions or non-compliance to therapy. Therapy continues to be appropriate for disease, patient response, and medical condition. Verification of therapeutic benefit and effectiveness with current therapy was completed. Adverse events, barriers in adherence, and side effects were assessed and addressed if applicable. Will proceed with refill with no changes in therapy - patient progressing towards achieving therapeutic goals based on medication-specific laboratory parameters, disease state markers and outcomes. Office/provider notes have been reviewed prior to dispensing the medication. 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 Patient confirmed: Yes Med/dose confirmed: Yes Supplies needed: No supplies needed Missed doses: No Estimated days supply on hand: 9 Next cycle/dose due: 03/24/25 Copay amount: 0 Payment confirmed: Yes Delivery method: FedEx Signature required: No Delivery address: [address] [place] [id number] Delivery date: 03/28/25 Questions or concerns for the pharmacist?: No Did you have any side effects believed to be related to this medication, that resulted in hospitalization?: No Current Outpatient Medications on File Prior to Visit Medication Sig pimavanserin (NUPLAZID) 34 mg capsule Take 1 capsule by mouth daily at bedtime. ferrous sulfate (IRON ORAL) Take 65 mg by mouth. Pt takes 1 tab 3x a week. rasagiline (AZILECT) 1 mg tab take 1 tablet by mouth every day pantoprazole DR (PROTONIX) 20 mg tablet Take 20 mg by mouth once daily. vitamin A/vitamin D3 (NATURAL VITAMIN D ORAL) Take 2,000 Units by mouth. Calcium Carbonate 650 mg calcium (1,625 mg) tablet Take 650 mg by mouth three times daily with meals. FLUoxetine (PROZAC) 40 mg capsule Take 40 mg by mouth once daily. Ibandronate 150 mg tablet Take 150 mg by mouth once every month. multivitamin with minerals (MULTIPLE VITAMINS 55 PLUS ORAL) once daily. levothyroxine (SYNTHROID) 50 mcg tablet Take 1 tablet by mouth once daily. atorvastatin (LIPITOR) 80 mg tablet Take 80 mg by mouth once daily. No current facility-administered medications on file prior to visit. [facility] CLINICAL ASSESSMENT - NEUROLOGY V7: Assessment to use: Refill Assessment of injection issues or necrosis at injection sites: N/A Screening for infection: Yes Drug specific assessments, as appropriate: Yes Current medication list (including drug interaction assessment): Yes Experience of adverse reactions to the medication: Yes Date of influenza vaccination reminder: 07/12/2024 Date of most recent vaccination assessment: 07/12/2024 Treatment Plan Information: Nuplazid (pimvanserin) Parkinsons Disease Psychosis: Take 34 mg po once daily May take 4-6 weeks to be effective. May be administered without regard to food. Capsules may be swallowed whole or entire contents emptied onto 1 tablespoonful (15 mL) of applesauce, yogurt, pudding, or liquid nutritional supplement to be used immediately without chewing; Potential SE: upset stomach Seek treatment immediately if : allergic reaction, dizziness/passingout, abnormal heartbeat, swelling in arms/legs. New or Worsening hallucinations, Feeling confused Monitoring: Adherence, CMP LFT, CBC, ECG as clinical indicated (dose increase or new Qtc prolonging med, or cardiac risk factors) DDI: Vaccine Assessment Est. Tx Plan Start Date: No information available Estimated Start Date Info: No information available Est. Estimated Treatment Duration: No information available Marty Alcala PharmD, BCPS Pharmacist, [facility] documented in this encounter [facility] 03-24-2025 Note HNO ID: [id number] Author: MARILEE ALCALA RPh Service: ? Author Type: ? Type: Progress Notes Filed: 03/24/2025 15:28 Note Text: [facility] Refill Assessment Medication(s): Nuplazid Patient's current medication list and adherence status to current therapy were reviewed by Specialty Pharmacy clinical pharmacist to identify any new drug interactions or non-compliance to therapy. Therapy continues to be appropriate for disease, patient response, and medical condition. Verification of therapeutic benefit and effectiveness with current therapy was completed. Adverse events, barriers in adherence, and side effects were assessed and addressed if applicable. Will proceed with refill with no changes in therapy - patient progressing towards achieving therapeutic goals based on medication-specific laboratory parameters, disease state markers and outcomes. Office/provider notes have been reviewed prior to dispensing the medication. 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 Patient confirmed: Yes Med/dose confirmed: Yes Supplies needed: No supplies needed Missed doses: No Estimated days supply on hand: 9 Next cycle/dose due: 03/24/25 Copay amount: 0 Payment confirmed: Yes Delivery method: FedEx Signature required: No Delivery address: [address] [place] [id number] Delivery date: 03/28/25 Questions or concerns for the pharmacist?: No Did you have any side effects believed to be related to this medication, that resulted in hospitalization?: No Current Outpatient Medications on File Prior to Visit Medication Sig pimavanserin (NUPLAZID) 34 mg capsule Take 1 capsule by mouth daily at bedtime. ferrous sulfate (IRON ORAL) Take 65 mg by mouth. Pt takes 1 tab 3x a week. rasagiline (AZILECT) 1 mg tab take 1 tablet by mouth every day pantoprazole DR (PROTONIX) 20 mg tablet Take 20 mg by mouth once daily. vitamin A/vitamin D3 (NATURAL VITAMIN D ORAL) Take 2,000 Units by mouth. Calcium Carbonate 650 mg calcium (1,625 mg) tablet Take 650 mg by mouth three times daily with meals. FLUoxetine (PROZAC) 40 mg capsule Take 40 mg by mouth once daily. Ibandronate 150 mg tablet Take 150 mg by mouth once every month. multivitamin with minerals (MULTIPLE VITAMINS 55 PLUS ORAL) once daily. levothyroxine (SYNTHROID) 50 mcg tablet Take 1 tablet by mouth once daily. atorvastatin (LIPITOR) 80 mg tablet Take 80 mg by mouth once daily. No current facility-administered medications on file prior to visit. [facility] CLINICAL ASSESSMENT - NEUROLOGY V7: Assessment to use: Refill Assessment of injection issues or necrosis at injection sites: N/A Screening for infection: Yes Drug specific assessments, as appropriate: Yes Current medication list (including drug interaction assessment): Yes Experience of adverse reactions to the medication: Yes Date of influenza vaccination reminder: 07/12/2024 Date of most recent vaccination assessment: 07/12/2024 Treatment Plan Information: Nuplazid (pimvanserin) Parkinsons Disease Psychosis: Take 34 mg po once daily May take 4-6 weeks to be effective. May be administered without regard to food. Capsules may be swallowed whole or entire contents emptied onto 1 tablespoonful (15 mL) of applesauce, yogurt, pudding, or liquid nutritional supplement to be used immediately without chewing; Potential SE: upset stomach Seek treatment immediately if : allergic reaction, dizziness/passingout, abnormal heartbeat, swelling in arms/legs. New or Worsening hallucinations, Feeling confused Monitoring: Adherence, CMP LFT, CBC, ECG as clinical indicated (dose increase or new Qtc prolonging med, or cardiac risk factors) DDI: Vaccine Assessment Est. Tx Plan Start Date: No information available Estimated Start Date Info: No information available Est. Estimated Treatment Duration: No information available Marty Alcala PharmD, [facility] Pharmacist, [facility] 03-15-2025 Note . MICRO - Microbiology PROCEDURE: Urine Culture [*1] SOURCE: Urine, Clean Catch BODY SITE: COLLECTED DATE/TIME: 03/14/2025 14:21 EDT RECEIVED DATE/TIME: 03/14/2025 18:59 EDT START DATE/TIME: 03/14/2025 18:59 EDT FREE TEXT SOURCE: FINAL REPORTS Final Report [] Verified Date/Time/Personnel: 03/15/2025 14:35 EDT 10,000 - 50,000 cfu/ml Multiple bacterial morphotypes present. Probable Contamination. Suggest recollection if clinically indicated. PRELIMINARY REPORTS Preliminary Report [] Verified Date/Time/Personnel: 03/14/2025 19:59 EDT Specimen received in lab. Performing Locations *1: This test was performed at: [facility], [address] [place] [address], [facility] , [facility] 02-24-2025 History of Presen t illness Narrative [facility] Ref[facility] Assessment Medication(s): Nuplazid Patient's current medication list and adherence status to current therapy were reviewed by Specialty Pharmacy clinical pharmacist to identify any new drug interactions or non-compliance to therapy. Therapy continues to be appropriate for disease, patient response, and medical condition. Verification of therapeutic benefit and effectiveness with current therapy was completed. Adverse events, barriers in adherence, and side effects were assessed and addressed if applicable. Will proceed with refill with no changes in therapy - patient progressing towards achieving therapeutic goals based on medication-specific laboratory parameters, disease state markers and outcomes. Office/provider notes have been reviewed prior to dispensing the medication. 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 Patient confirmed: Yes Med/dose confirmed: Yes Missed doses: No Estimated days supply on hand: 7 Next cycle/dose due: 02/25/25 Copay amount: 0 Delivery method: FedEx Signature required: Waived on patient request Delivery address: [address] [place] [id number] Delivery date: 02/28/25 Questions or concerns for the pharmacist?: No Did you have any side effects believed to be related to this medication, that resulted in hospitalization?: No Current Outpatient Medications on File Prior to Visit Medication Sig pimavanserin (NUPLAZID) 34 mg capsule Take 1 capsule by mouth daily at bedtime. ferrous sulfate (IRON ORAL) Take 65 mg by mouth. Pt takes 1 tab 3x a week. rasagiline (AZILECT) 1 mg tab take 1 tablet by mouth every day pantoprazole DR (PROTONIX) 20 mg tablet Take 20 mg by mouth once daily. vitamin A/vitamin D3 (NATURAL VITAMIN D ORAL) Take 2,000 Units by mouth. Calcium Carbonate 650 mg calcium (1,625 mg) tablet Take 650 mg by mouth three times daily with meals. FLUoxetine (PROZAC) 40 mg capsule Take 40 mg by mouth once daily. Ibandronate 150 mg tablet Take 150 mg by mouth once every month. multivitamin with minerals (MULTIPLE VITAMINS 55 PLUS ORAL) once daily. levothyroxine (SYNTHROID) 50 mcg tablet Take 1 tablet by mouth once daily. atorvastatin (LIPITOR) 80 mg tablet Take 80 mg by mouth once daily. No current facility-administered medications on file prior to visit. [facility] CLINICAL ASSESSMENT - NEUROLOGY V7: Assessment to use: Refill Date of influenza vaccination reminder: 07/12/2024 Date of most recent vaccination assessment: 07/12/2024 Treatment Plan Information: Nuplazid (pimvanserin) Parkinsons Disease Psychosis: Take 34 mg po once daily May take 4-6 weeks to be effective. May be administered without regard to food. Capsules may be swallowed whole or entire contents emptied onto 1 tablespoonful (15 mL) of applesauce, yogurt, pudding, or liquid nutritional supplement to be used immediately without chewing; Potential SE: upset stomach Seek treatment immediately if : allergic reaction, dizziness/passingout, abnormal heartbeat, swelling in arms/legs. New or Worsening hallucinations, Feeling confused Monitoring: Adherence, CMP LFT, CBC, ECG as clinical indicated (dose increase or new Qtc prolonging med, or cardiac risk factors) DDI: Vaccine Assessment Est. Tx Plan Start Date: No information available Estimated Start Date Info: No information available Est. Estimated Treatment Duration: No information available Gisela Harman CPhT [facility], Neurology, Cardiology, & Infectious Disease P: [phone] F: [phone] documented in this encounter [facility] 02-24-2025 Note HNO ID: [id number] Author: JONATHAN JUAN RPh Service: ? Author Type: ? Type: Progress Notes Filed: 03/01/2025 16:53 Note Text: [facility] Refill Assessment Medication(s): Nuplazid Patient's current medication list and adherence status to current therapy were reviewed by Specialty Pharmacy clinical pharmacist to identify any new drug interactions or non-compliance to therapy. Therapy continues to be appropriate for disease, patient response, and medical condition. Verification of therapeutic benefit and effectiveness with current therapy was completed. Adverse events, barriers in adherence, and side effects were assessed and addressed if applicable. Will proceed with refill with no changes in therapy - patient progressing towards achieving therapeutic goals based on medication-specific laboratory parameters, disease state markers and outcomes. Office/provider notes have been reviewed prior to dispensing the medication. Jonathan Juan, PharmD, CSP, MSCS Pharmacist, [facility] Specialty Payroll And Benefits Assistant Assessment Patient confirmed: Yes Med/dose confirmed: Yes Missed doses: No Estimated days supply on hand: 7 Next cycle/dose due: 02/25/25 Copay amount: 0 Delivery method: FedEx Signature required: Waived on patient request Delivery address: [address] [place] [id number] Delivery date: 02/28/25 Questions or concerns for the pharmacist?: No Did you have any side effects believed to be related to this medication, that resulted in hospitalization?: No Current Outpatient Medications on File Prior to Visit Medication Sig pimavanserin (NUPLAZID) 34 mg capsule Take 1 capsule by mouth daily at bedtime. ferrous sulfate (IRON ORAL) Take 65 mg by mouth. Pt takes 1 tab 3x a week. rasagiline (AZILECT) 1 mg tab take 1 tablet by mouth every day pantoprazole DR (PROTONIX) 20 mg tablet Take 20 mg by mouth once daily. vitamin A/vitamin D3 (NATURAL VITAMIN D ORAL) Take 2,000 Units by mouth. Calcium Carbonate 650 mg calcium (1,625 mg) tablet Take 650 mg by mouth three times daily with meals. FLUoxetine (PROZAC) 40 mg capsule Take 40 mg by mouth once daily. Ibandronate 150 mg tablet Take 150 mg by mouth once every month. multivitamin with minerals (MULTIPLE VITAMINS 55 PLUS ORAL) once daily. levothyroxine (SYNTHROID) 50 mcg tablet Take 1 tablet by mouth once daily. atorvastatin (LIPITOR) 80 mg tablet Take 80 mg by mouth once daily. No current facility-administered medications on file prior to visit. [facility] CLINICAL ASSESSMENT - NEUROLOGY V7: Assessment to use: Refill Assessment of injection issues or necrosis at injection sites: N/A Screening for infection: Yes Drug specific assessments, as appropriate: Yes Current medication list (including drug interaction assessment): Yes Experience of adverse reactions to the medication: Yes Date of influenza vaccination reminder: 07/12/2024 Date of most recent vaccination assessment: 07/12/2024 Treatment Plan Information: Nuplazid (pimvanserin) Parkinsons Disease Psychosis: Take 34 mg po once daily May take 4-6 weeks to be effective. May be administered without regard to food. Capsules may be swallowed whole or entire contents emptied onto 1 tablespoonful (15 mL) of applesauce, yogurt, pudding, or liquid nutritional supplement to be used immediately without chewing; Potential SE: upset stomach Seek treatment immediately if : allergic reaction, dizziness/passingout, abnormal heartbeat, swelling in arms/legs. New or Worsening hallucinations, Feeling confused Monitoring: Adherence, CMP LFT, CBC, ECG as clinical indicated (dose increase or new Qtc prolonging med, or cardiac risk factors) DDI: Vaccine Assessment Est. Tx Plan Start Date: No information available Estimated Start Date Info: No information available Est. Estimated Treatment Duration: No information available Gisela Harman CPhT [facility], Neurology, Cardiology, AND Infectious Disease P: [phone] F: [phone] [facility] 01-23-2025 History of Presen t illness Narrative [facility] Ref[facility] Assessment Medication(s): Nuplazid Patient's current medication list and adherence status to current therapy were reviewed by Specialty Pharmacy clinical pharmacist to identify any new drug interactions or non-compliance to therapy. Therapy continues to be appropriate for disease, patient response, and medical condition. Verification of therapeutic benefit and effectiveness with current therapy was completed. Adverse events, barriers in adherence, and side effects were assessed and addressed if applicable. Will proceed with refill with no changes in therapy - patient progressing towards achieving therapeutic goals based on medication-specific laboratory parameters, disease state markers and outcomes. Office/provider notes have been reviewed prior to dispensing the medication. 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 Patient confirmed: Yes Med/dose confirmed: Yes Supplies needed: No supplies needed Missed doses: No Estimated days supply on hand: 9 Next cycle/dose due: 01/23/25 Copay amount: 0 Payment confirmed: Yes Delivery method: FedEx Signature required: No Delivery address: [id number] [facility] [facility] [id number] Delivery date: 01/28/25 Questions or concerns for the pharmacist?: No Did you have any side effects believed to be related to this medication, that resulted in hospitalization?: No Current Outpatient Medications on File Prior to Visit Medication Sig pimavanserin (NUPLAZID) 34 mg capsule Take 1 capsule by mouth daily at bedtime. ferrous sulfate (IRON ORAL) Take 65 mg by mouth. Pt takes 1 tab 3x a week. rasagiline (AZILECT) 1 mg tab take 1 tablet by mouth every day pantoprazole DR (PROTONIX) 20 mg tablet Take 20 mg by mouth once daily. vitamin A/vitamin D3 (NATURAL VITAMIN D ORAL) Take 2,000 Units by mouth. Calcium Carbonate 650 mg calcium (1,625 mg) tablet Take 650 mg by mouth three times daily with meals. FLUoxetine (PROZAC) 40 mg capsule Take 40 mg by mouth once daily. Ibandronate 150 mg tablet Take 150 mg by mouth once every month. multivitamin with minerals (MULTIPLE VITAMINS 55 PLUS ORAL) once daily. levothyroxine (SYNTHROID) 50 mcg tablet Take 1 tablet by mouth once daily. atorvastatin (LIPITOR) 80 mg tablet Take 80 mg by mouth once daily. No current facility-administered medications on file prior to visit. [facility] CLINICAL ASSESSMENT - NEUROLOGY V7: Assessment to use: Refill Date of influenza vaccination reminder: 07/12/2024 Date of most recent vaccination assessment: 07/12/2024 Treatment Plan Information: Nuplazid (pimvanserin) Parkinsons Disease Psychosis: Take 34 mg po once daily May take 4-6 weeks to be effective. May be administered without regard to food. Capsules may be swallowed whole or entire contents emptied onto 1 tablespoonful (15 mL) of applesauce, yogurt, pudding, or liquid nutritional supplement to be used immediately without chewing; Potential SE: upset stomach Seek treatment immediately if : allergic reaction, dizziness/passingout, abnormal heartbeat, swelling in arms/legs. New or Worsening hallucinations, Feeling confused Monitoring: Adherence, CMP LFT, CBC, ECG as clinical indicated (dose increase or new Qtc prolonging med, or cardiac risk factors) DDI: Vaccine Assessment Est. Tx Plan Start Date: No information available Estimated Start Date Info: No information available Est. Estimated Treatment Duration: No information available Marty Puente documented in this encounter [facility] 01-23-2025 Note HNO ID: [id number] Author: YAMILET HCÁVEZ RPh Service: ? Author Type: ? Type: Progress Notes Filed: 01/24/2025 10:38 Note Text: [facility] Ref[facility] Assessment Medication(s): Nuplazid Patient's current medication list and adherence status to current therapy were reviewed by Specialty Pharmacy clinical pharmacist to identify any new drug interactions or non-compliance to therapy. Therapy continues to be appropriate for disease, patient response, and medical condition. Verification of therapeutic benefit and effectiveness with current therapy was completed. Adverse events, barriers in adherence, and side effects were assessed and addressed if applicable. Will proceed with refill with no changes in therapy - patient progressing towards achieving therapeutic goals based on medication-specific laboratory parameters, disease state markers and outcomes. Office/provider notes have been reviewed prior to dispensing the medication. Yamilet Chávez PharmD, [facility] PGY-1 Community[employer]Based [employer] Designer (Specialty) P: [phone] F: [phone] 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 Patient confirmed: Yes Med/dose confirmed: Yes Supplies needed: No supplies needed Missed doses: No Estimated days supply on hand: 9 Next cycle/dose due: 01/23/25 Copay amount: 0 Payment confirmed: Yes Delivery method: FedEx Signature required: No Delivery address: [address] [place] [id number] [facility] [id number] Delivery date: 01/28/25 Questions or concerns for the pharmacist?: No Did you have any side effects believed to be related to this medication, that resulted in hospitalization?: No Current Outpatient Medications on File Prior to Visit Medication Sig pimavanserin (NUPLAZID) 34 mg capsule Take 1 capsule by mouth daily at bedtime. ferrous sulfate (IRON ORAL) Take 65 mg by mouth. Pt takes 1 tab 3x a week. rasagiline (AZILECT) 1 mg tab take 1 tablet by mouth every day pantoprazole DR (PROTONIX) 20 mg tablet Take 20 mg by mouth once daily. vitamin A/vitamin D3 (NATURAL VITAMIN D ORAL) Take 2,000 Units by mouth. Calcium Carbonate 650 mg calcium (1,625 mg) tablet Take 650 mg by mouth three times daily with meals. FLUoxetine (PROZAC) 40 mg capsule Take 40 mg by mouth once daily. Ibandronate 150 mg tablet Take 150 mg by mouth once every month. multivitamin with minerals (MULTIPLE VITAMINS 55 PLUS ORAL) once daily. levothyroxine (SYNTHROID) 50 mcg tablet Take 1 tablet by mouth once daily. atorvastatin (LIPITOR) 80 mg tablet Take 80 mg by mouth once daily. No current facility-administered medications on file prior to visit. [facility] CLINICAL ASSESSMENT - NEUROLOGY V7: Assessment to use: Refill Assessment of injection issues or necrosis at injection sites: N/A Screening for infection: Yes Drug specific assessments, as appropriate: Yes Current medication list (including drug interaction assessment): Yes Experience of adverse reactions to the medication: Yes Date of influenza vaccination reminder: 07/12/2024 Date of most recent vaccination assessment: 07/12/2024 Treatment Plan Information: Nuplazid (pimvanserin) Parkinsons Disease Psychosis: Take 34 mg po once daily May take 4-6 weeks to be effective. May be administered without regard to food. Capsules may be swallowed whole or entire contents emptied onto 1 tablespoonful (15 mL) of applesauce, yogurt, pudding, or liquid nutritional supplement to be used immediately without chewing; Potential SE: upset stomach Seek treatment immediately if : allergic reaction, dizziness/passingout, abnormal heartbeat, swelling in arms/legs. New or Worsening hallucinations, Feeling confused Monitoring: Adherence, CMP LFT, CBC, ECG as clinical indicated (dose increase or new Qtc prolonging med, or cardiac risk factors) DDI: Vaccine Assessment Est. Tx Plan Start Date: No information available Estimated Start Date Info: No information available Est. Estimated Treatment Duration: No information available Marty Puente [facility] 12-24-2024 Note HNO ID: [id number] Author: JONATHAN JUAN RPh Service: ? Author Type: ? Type: Progress Notes Filed: 12/29/2024 20:51 Note Text: [facility] Refill Assessment Medication(s): Nuplazid Patient's current medication list and adherence status to current therapy were reviewed by Specialty Pharmacy clinical pharmacist to identify any new drug interactions or non-compliance to therapy. Therapy continues to be appropriate for disease, patient response, and medical condition. Verification of therapeutic benefit and effectiveness with current therapy was completed. Adverse events, barriers in adherence, and side effects were assessed and addressed if applicable. Will proceed with refill with no changes in therapy - patient progressing towards achieving therapeutic goals based on medication-specific laboratory parameters, disease state markers and outcomes. Office/provider notes have been reviewed prior to dispensing the medication. Jonathan Juan, PharmD, CSP, [facility] Pharmacist, [facility] Specialty Payroll And Benefits Assistant Assessment Patient confirmed: Yes Med/dose confirmed: Yes Supplies needed: No supplies needed Missed doses: No Estimated days supply on hand: 8 Next cycle/dose due: 12/25/24 Copay amount: 0 Payment confirmed: Yes Delivery method: FedEx Signature required: No Delivery address: [address] [place] [id number] Delivery date: 12/27/24 Questions or concerns for the pharmacist?: No Did you have any side effects believed to be related to this medication, that resulted in hospitalization?: No Current Outpatient Medications on File Prior to Visit Medication Sig pimavanserin (NUPLAZID) 34 mg capsule Take 1 capsule by mouth daily at bedtime. ferrous sulfate (IRON ORAL) Take 65 mg by mouth. Pt takes 1 tab 3x a week. rasagiline (AZILECT) 1 mg tab take 1 tablet by mouth every day pantoprazole DR (PROTONIX) 20 mg tablet Take 20 mg by mouth once daily. vitamin A/vitamin D3 (NATURAL VITAMIN D ORAL) Take 2,000 Units by mouth. Calcium Carbonate 650 mg calcium (1,625 mg) tablet Take 650 mg by mouth three times daily with meals. FLUoxetine (PROZAC) 40 mg capsule Take 40 mg by mouth once daily. Ibandronate 150 mg tablet Take 150 mg by mouth once every month. multivitamin with minerals (MULTIPLE VITAMINS 55 PLUS ORAL) once daily. levothyroxine (SYNTHROID) 50 mcg tablet Take 1 tablet by mouth once daily. atorvastatin (LIPITOR) 80 mg tablet Take 80 mg by mouth once daily. No current facility-administered medications on file prior to visit. [facility] CLINICAL ASSESSMENT - NEUROLOGY V7: Assessment to use: Refill Assessment of injection issues or necrosis at injection sites: N/A Screening for infection: Yes Drug specific assessments, as appropriate: Yes Current medication list (including drug interaction assessment): Yes Experience of adverse reactions to the medication: Yes Date of influenza vaccination reminder: 07/12/2024 Date of most recent vaccination assessment: 07/12/2024 Treatment Plan Information: Nuplazid (pimvanserin) Parkinsons Disease Psychosis: Take 34 mg po once daily May take 4-6 weeks to be effective. May be administered without regard to food. Capsules may be swallowed whole or entire contents emptied onto 1 tablespoonful (15 mL) of applesauce, yogurt, pudding, or liquid nutritional supplement to be used immediately without chewing; Potential SE: upset stomach Seek treatment immediately if : allergic reaction, dizziness/passingout, abnormal heartbeat, swelling in arms/legs. New or Worsening hallucinations, Feeling confused Monitoring: Adherence, CMP LFT, CBC, ECG as clinical indicated (dose increase or new Qtc prolonging med, or cardiac risk factors) DDI: Vaccine Assessment Est. Tx Plan Start Date: No information available Estimated Start Date Info: No information available Est. Estimated Treatment Duration: No information available Marty Puente [facility] 11-25-2024 History of Presen t illness Narrative Images from the original note were not included. Patient has been enrolled in a new $10,000 agata for Dx: Neurocognitive Disease with Psychosis through [facility] 10/26/2024 to 10/25/2025. Francisco J Woodward CPhT Neurology, Cardiology & Infectious Disease [facility] Refill Assessment Medication(s): Nuplazid Patient's current medication list and adherence status to current therapy were reviewed by Specialty Pharmacy clinical pharmacist to identify any new drug interactions or non-compliance to therapy. Therapy continues to be appropriate for disease, patient response, and medical condition. Verification of therapeutic benefit and effectiveness with current therapy was completed. Adverse events, barriers in adherence, and side effects were assessed and addressed if applicable. Will proceed with refill with no changes in therapy - patient progressing towards achieving therapeutic goals based on medication-specific laboratory parameters, disease state markers and outcomes. Office/provider notes have been reviewed prior to dispensing the medication. 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 Patient confirmed: Yes Med/dose confirmed: Yes Missed doses: No Estimated days supply on hand: 10 Next cycle/dose due: 11/26/24 Copay amount: 0 Delivery method: FedEx Signature required: Waived on patient request Delivery address: [id number] [facility] [id number] Delivery date: 11/29/24 Questions or concerns for the pharmacist?: No Did you have any side effects believed to be related to this medication, that resulted in hospitalization?: No Current Outpatient Medications on File Prior to Visit Medication Sig pimavanserin (NUPLAZID) 34 mg capsule Take 1 capsule by mouth daily at bedtime. ferrous sulfate (IRON ORAL) Take 65 mg by mouth. Pt takes 1 tab 3x a week. rasagiline (AZILECT) 1 mg tab take 1 tablet by mouth every day pantoprazole DR (PROTONIX) 20 mg tablet Take 20 mg by mouth once daily. vitamin A/vitamin D3 (NATURAL VITAMIN D ORAL) Take 2,000 Units by mouth. Calcium Carbonate 650 mg calcium (1,625 mg) tablet Take 650 mg by mouth three times daily with meals. FLUoxetine (PROZAC) 40 mg capsule Take 40 mg by mouth once daily. Ibandronate 150 mg tablet Take 150 mg by mouth once every month. multivitamin with minerals (MULTIPLE VITAMINS 55 PLUS ORAL) once daily. levothyroxine (SYNTHROID) 50 mcg tablet Take 1 tablet by mouth once daily. atorvastatin (LIPITOR) 80 mg tablet Take 80 mg by mouth once daily. No current facility-administered medications on file prior to visit. [facility] CLINICAL ASSESSMENT - NEUROLOGY V7: Assessment to use: Refill Date of influenza vaccination reminder: 07/12/2024 Date of most recent vaccination assessment: 07/12/2024 Treatment Plan Information: Nuplazid (pimvanserin) Parkinsons Disease Psychosis: Take 34 mg po once daily May take 4-6 weeks to be effective. May be administered without regard to food. Capsules may be swallowed whole or entire contents emptied onto 1 tablespoonful (15 mL) of applesauce, yogurt, pudding, or liquid nutritional supplement to be used immediately without chewing; Potential SE: upset stomach Seek treatment immediately if : allergic reaction, dizziness/passingout, abnormal heartbeat, swelling in arms/legs. New or Worsening hallucinations, Feeling confused Monitoring: Adherence, CMP LFT, CBC, ECG as clinical indicated (dose increase or new Qtc prolonging med, or cardiac risk factors) DDI: Vaccine Assessment Est. Tx Plan Start Date: No information available Estimated Start Date Info: No information available Est. Estimated Treatment Duration: No information available Francisco J Woodward CPhT Neurology, Cardiology & Infectious Disease [facility] documented in this encounter [facility] 11-25-2024 Note HNO ID: [id number] Author: ?, ?, ? Service: ? Author Type: ? Type: Progress Notes Filed: 11/25/2024 10:26 Note Text: Patient has been enrolled in a new $10,000 agata for Dx: Neurocognitive Disease with Psychosis through [facility] 10/26/2024 to 10/25/2025. Francisco J Woodward CPhT Neurology, Cardiology AND Infectious Disease [facility] 11-25-2024 Note HNO ID: [id number] Author: JONATHAN JUAN RPh Service: ? Author Type: ? Type: Progress Notes Filed: 11/29/2024 12:24 Note Text: [facility] Refill Assessment Medication(s): Nuplazid Patient's current medication list and adherence status to current therapy were reviewed by Specialty Pharmacy clinical pharmacist to identify any new drug interactions or non-compliance to therapy. Therapy continues to be appropriate for disease, patient response, and medical condition. Verification of therapeutic benefit and effectiveness with current therapy was completed. Adverse events, barriers in adherence, and side effects were assessed and addressed if applicable. Will proceed with refill with no changes in therapy - patient progressing towards achieving therapeutic goals based on medication-specific laboratory parameters, disease state markers and outcomes. Office/provider notes have been reviewed prior to dispensing the medication. Jonathan Juan, PharmD, CSP, [facility] Pharmacist, [facility] Specialty Payroll And Benefits Assistant Assessment Patient confirmed: Yes Med/dose confirmed: Yes Missed doses: No Estimated days supply on hand: 10 Next cycle/dose due: 11/26/24 Copay amount: 0 Delivery method: FedEx Signature required: Waived on patient request Delivery address: [address] [place] [id number] Delivery date: 11/29/24 Questions or concerns for the pharmacist?: No Did you have any side effects believed to be related to this medication, that resulted in hospitalization?: No Current Outpatient Medications on File Prior to Visit Medication Sig pimavanserin (NUPLAZID) 34 mg capsule Take 1 capsule by mouth daily at bedtime. ferrous sulfate (IRON ORAL) Take 65 mg by mouth. Pt takes 1 tab 3x a week. rasagiline (AZILECT) 1 mg tab take 1 tablet by mouth every day pantoprazole DR (PROTONIX) 20 mg tablet Take 20 mg by mouth once daily. vitamin A/vitamin D3 (NATURAL VITAMIN D ORAL) Take 2,000 Units by mouth. Calcium Carbonate 650 mg calcium (1,625 mg) tablet Take 650 mg by mouth three times daily with meals. FLUoxetine (PROZAC) 40 mg capsule Take 40 mg by mouth once daily. Ibandronate 150 mg tablet Take 150 mg by mouth once every month. multivitamin with minerals (MULTIPLE VITAMINS 55 PLUS ORAL) once daily. levothyroxine (SYNTHROID) 50 mcg tablet Take 1 tablet by mouth once daily. atorvastatin (LIPITOR) 80 mg tablet Take 80 mg by mouth once daily. No current facility-administered medications on file prior to visit. [facility] CLINICAL ASSESSMENT - NEUROLOGY V7: Assessment to use: Refill Assessment of injection issues or necrosis at injection sites: N/A Screening for infection: Yes Drug specific assessments, as appropriate: Yes Current medication list (including drug interaction assessment): Yes Experience of adverse reactions to the medication: Yes Date of influenza vaccination reminder: 07/12/2024 Date of most recent vaccination assessment: 07/12/2024 Treatment Plan Information: Nuplazid (pimvanserin) Parkinsons Disease Psychosis: Take 34 mg po once daily May take 4-6 weeks to be effective. May be administered without regard to food. Capsules may be swallowed whole or entire contents emptied onto 1 tablespoonful (15 mL) of applesauce, yogurt, pudding, or liquid nutritional supplement to be used immediately without chewing; Potential SE: upset stomach Seek treatment immediately if : allergic reaction, dizziness/passingout, abnormal heartbeat, swelling in arms/legs. New or Worsening hallucinations, Feeling confused Monitoring: Adherence, CMP LFT, CBC, ECG as clinical indicated (dose increase or new Qtc prolonging med, or cardiac risk factors) DDI: Vaccine Assessment Est. Tx Plan Start Date: No information available Estimated Start Date Info: No information available Est. Estimated Treatment Duration: No information available FranciscoJ Woodward CPhT Neurology, Cardiology AND Infectious Disease [facility] 11-22-2024 Miscellaneous Notes Pt will be due for a refill of Nuplazid soon. If therapy is being continued, please sign this order request to send refill via eRx to [facility]. Last OV 08/27/24 Thanks! documented in this encounter [facility] 11-22-2024 Telephone encounter Note Pt will be due for a refill of Nuplazid soon. If therapy is being continued, please sign this order request to send refill via eRx to [facility]. Last OV 08/27/24 Thanks! [facility] 10-22-2024 History of Presen t illness Narrative [facility] Assessment Medication(s): Nuplazid Patient's current medication list and adherence status to current therapy were reviewed by Specialty Pharmacy clinical pharmacist to identify any new drug interactions or non-compliance to therapy. Therapy continues to be appropriate for disease, patient response, and medical condition. Verification of therapeutic benefit and effectiveness with current therapy was completed. Adverse events, barriers in adherence, and side effects were assessed and addressed if applicable. Will proceed with refill with no changes in therapy - patient progressing towards achieving therapeutic goals based on medication-specific laboratory parameters, disease state markers and outcomes. Office/provider notes have been reviewed prior to dispensing the medication. 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 Patient confirmed: Yes Med/dose confirmed: Yes Missed doses: No Estimated days supply on hand: 10 Next cycle/dose due: 10/23/24 Copay amount: 0 Delivery method: FedEx Signature required: Waived on patient request Delivery address: [address] [place] [id number] Delivery date: 10/28/24 Questions or concerns for the pharmacist?: No Did you have any side effects believed to be related to this medication, that resulted in hospitalization?: No Current Outpatient Medications on File Prior to Visit Medication Sig ferrous sulfate (IRON ORAL) Take 65 mg by mouth. Pt takes 1 tab 3x a week. rasagiline (AZILECT) 1 mg tab take 1 tablet by mouth every day pimavanserin (NUPLAZID) 34 mg capsule Take 1 capsule by mouth daily at bedtime. pantoprazole DR (PROTONIX) 20 mg tablet Take 20 mg by mouth once daily. vitamin A/vitamin D3 (NATURAL VITAMIN D ORAL) Take 2,000 Units by mouth. Calcium Carbonate 650 mg calcium (1,625 mg) tablet Take 650 mg by mouth three times daily with meals. FLUoxetine (PROZAC) 40 mg capsule Take 40 mg by mouth once daily. Ibandronate 150 mg tablet Take 150 mg by mouth once every month. multivitamin with minerals (MULTIPLE VITAMINS 55 PLUS ORAL) once daily. levothyroxine (SYNTHROID) 50 mcg tablet Take 1 tablet by mouth once daily. atorvastatin (LIPITOR) 80 mg tablet Take 80 mg by mouth once daily. No current facility-administered medications on file prior to visit. [facility] CLINICAL ASSESSMENT - NEUROLOGY V7: Assessment to use: Refill Date of influenza vaccination reminder: 07/12/2024 Date of most recent vaccination assessment: 07/12/2024 Treatment Plan Information: Nuplazid (pimvanserin) Parkinsons Disease Psychosis: Take 34 mg po once daily May take 4-6 weeks to be effective. May be administered without regard to food. Capsules may be swallowed whole or entire contents emptied onto 1 tablespoonful (15 mL) of applesauce, yogurt, pudding, or liquid nutritional supplement to be used immediately without chewing; Potential SE: upset stomach Seek treatment immediately if : allergic reaction, dizziness/passingout, abnormal heartbeat, swelling in arms/legs. New or Worsening hallucinations, Feeling confused Monitoring: Adherence, CMP LFT, CBC, ECG as clinical indicated (dose increase or new Qtc prolonging med, or cardiac risk factors) DDI: Vaccine Assessment Est. Tx Plan Start Date: No information available Estimated Start Date Info: No information available Est. Estimated Treatment Duration: No information available Francisco J Woodward CPhT Neurology, Cardiology & Infectious Disease [facility] documented in this encounter [facility] 10-22-2024 Note HNO ID: [id number] Author: JONATHAN JUAN [facility] Service: ? Author Type: ? Type: Progress Notes Filed: 10/24/2024 18:24 Note Text: [facility] Ref[facility] Assessment Medication(s): Nuplazid Patient's current medication list and adherence status to current therapy were reviewed by Specialty Pharmacy clinical pharmacist to identify any new drug interactions or non-compliance to therapy. Therapy continues to be appropriate for disease, patient response, and medical condition. Verification of therapeutic benefit and effectiveness with current therapy was completed. Adverse events, barriers in adherence, and side effects were assessed and addressed if applicable. Will proceed with refill with no changes in therapy - patient progressing towards achieving therapeutic goals based on medication-specific laboratory parameters, disease state markers and outcomes. Office/provider notes have been reviewed prior to dispensing the medication. Jonathan Juan, PharmD, CSP, [facility] Pharmacist, [facility] Specialty Payroll And Benefits Assistant Assessment Patient confirmed: Yes Med/dose confirmed: Yes Missed doses: No Estimated days supply on hand: 10 Next cycle/dose due: 10/23/24 Copay amount: 0 Delivery method: FedEx Signature required: Waived on patient request Delivery address: [address] [place] [id number] Delivery date: 10/28/24 Questions or concerns for the pharmacist?: No Did you have any side effects believed to be related to this medication, that resulted in hospitalization?: No Current Outpatient Medications on File Prior to Visit Medication Sig ferrous sulfate (IRON ORAL) Take 65 mg by mouth. Pt takes 1 tab 3x a week. rasagiline (AZILECT) 1 mg tab take 1 tablet by mouth every day pimavanserin (NUPLAZID) 34 mg capsule Take 1 capsule by mouth daily at bedtime. pantoprazole DR (PROTONIX) 20 mg tablet Take 20 mg by mouth once daily. vitamin A/vitamin D3 (NATURAL VITAMIN D ORAL) Take 2,000 Units by mouth. Calcium Carbonate 650 mg calcium (1,625 mg) tablet Take 650 mg by mouth three times daily with meals. FLUoxetine (PROZAC) 40 mg capsule Take 40 mg by mouth once daily. Ibandronate 150 mg tablet Take 150 mg by mouth once every month. multivitamin with minerals (MULTIPLE VITAMINS 55 PLUS ORAL) once daily. levothyroxine (SYNTHROID) 50 mcg tablet Take 1 tablet by mouth once daily. atorvastatin (LIPITOR) 80 mg tablet Take 80 mg by mouth once daily. No current facility-administered medications on file prior to visit. [facility] CLINICAL ASSESSMENT - NEUROLOGY V7: Assessment to use: Refill Assessment of injection issues or necrosis at injection sites: N/A Screening for infection: Yes Drug specific assessments, as appropriate: Yes Current medication list (including drug interaction assessment): Yes Experience of adverse reactions to the medication: Yes Date of influenza vaccination reminder: 07/12/2024 Date of most recent vaccination assessment: 07/12/2024 Treatment Plan Information: Nuplazid (pimvanserin) Parkinsons Disease Psychosis: Take 34 mg po once daily May take 4-6 weeks to be effective. May be administered without regard to food. Capsules may be swallowed whole or entire contents emptied onto 1 tablespoonful (15 mL) of applesauce, yogurt, pudding, or liquid nutritional supplement to be used immediately without chewing; Potential SE: upset stomach Seek treatment immediately if : allergic reaction, dizziness/passingout, abnormal heartbeat, swelling in arms/legs. New or Worsening hallucinations, Feeling confused Monitoring: Adherence, CMP LFT, CBC, ECG as clinical indicated (dose increase or new Qtc prolonging med, or cardiac risk factors) DDI: Vaccine Assessment Est. Tx Plan Start Date: No information available Estimated Start Date Info: No information available Est. Estimated Treatment Duration: No information available Francisco J Woodward CPhT Neurology, Cardiology AND Infectious Disease [facility] 09-19-2024 History of Presen t illness Narrative [facility] Assessment Medication(s): Nuplazid Patient's current medication list and adherence status to current therapy were reviewed by Specialty Pharmacy clinical pharmacist to identify any new drug interactions or non-compliance to therapy. Therapy continues to be appropriate for disease, patient response, and medical condition. Verification of therapeutic benefit and effectiveness with current therapy was completed. Adverse events, barriers in adherence, and side effects were assessed and addressed if applicable. Will proceed with refill with no changes in therapy - patient progressing towards achieving therapeutic goals based on medication-specific laboratory parameters, disease state markers and outcomes. Office/provider notes have been reviewed prior to dispensing the medication. 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 Patient confirmed: Yes Med/dose confirmed: Yes Supplies needed: No supplies needed Missed doses: No Estimated days supply on hand: 12 Next cycle/dose due: 09/19/24 Copay amount: 0 Payment confirmed: Yes Delivery method: FedEx Signature required: No Delivery address: [address] [place] [id number] Delivery date: 09/27/24 Questions or concerns for the pharmacist?: No Did you have any side effects believed to be related to this medication, that resulted in hospitalization?: No Current Outpatient Medications on File Prior to Visit Medication Sig traZODone (DESYREL) 50 mg tablet Take 0.5 tablets by mouth daily at bedtime. ferrous sulfate (IRON ORAL) Take 65 mg by mouth. Pt takes 1 tab 3x a week. rasagiline (AZILECT) 1 mg tab take 1 tablet by mouth every day pimavanserin (NUPLAZID) 34 mg capsule Take 1 capsule by mouth daily at bedtime. pantoprazole DR (PROTONIX) 20 mg tablet Take 20 mg by mouth once daily. vitamin A/vitamin D3 (NATURAL VITAMIN D ORAL) Take 2,000 Units by mouth. Calcium Carbonate 650 mg calcium (1,625 mg) tablet Take 650 mg by mouth three times daily with meals. FLUoxetine (PROZAC) 40 mg capsule Take 40 mg by mouth once daily. Ibandronate 150 mg tablet Take 150 mg by mouth once every month. multivitamin with minerals (MULTIPLE VITAMINS 55 PLUS ORAL) once daily. levothyroxine (SYNTHROID) 50 mcg tablet Take 1 tablet by mouth once daily. atorvastatin (LIPITOR) 80 mg tablet Take 80 mg by mouth once daily. No current facility-administered medications on file prior to visit. [facility] CLINICAL ASSESSMENT - NEUROLOGY V7: Assessment to use: Refill Date of influenza vaccination reminder: 07/12/2024 Date of most recent vaccination assessment: 07/12/2024 Treatment Plan Information: Nuplazid (pimvanserin) Parkinsons Disease Psychosis: Take 34 mg po once daily May take 4-6 weeks to be effective. May be administered without regard to food. Capsules may be swallowed whole or entire contents emptied onto 1 tablespoonful (15 mL) of applesauce, yogurt, pudding, or liquid nutritional supplement to be used immediately without chewing; Potential SE: upset stomach Seek treatment immediately if : allergic reaction, dizziness/passingout, abnormal heartbeat, swelling in arms/legs. New or Worsening hallucinations, Feeling confused Monitoring: Adherence, CMP LFT, CBC, ECG as clinical indicated (dose increase or new Qtc prolonging med, or cardiac risk factors) DDI: Vaccine Assessment Est. Tx Plan Start Date: No information available Estimated Start Date Info: No information available Est. Estimated Treatment Duration: No information available Marty Puente documented in this encounter [facility] 09-19-2024 Note HNO ID: [id number] Author: YAMILET STEEL RPh Service: ? Author Type: ? Type: Progress Notes Filed: 09/20/2024 07:41 Note Text: [facility] Refill Assessment Medication(s): Nuplazid Patient's current medication list and adherence status to current therapy were reviewed by Specialty Pharmacy clinical pharmacist to identify any new drug interactions or non-compliance to therapy. Therapy continues to be appropriate for disease, patient response, and medical condition. Verification of therapeutic benefit and effectiveness with current therapy was completed. Adverse events, barriers in adherence, and side effects were assessed and addressed if applicable. Will proceed with refill with no changes in therapy - patient progressing towards achieving therapeutic goals based on medication-specific laboratory parameters, disease state markers and outcomes. Office/provider notes have been reviewed prior to dispensing the medication. 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 Patient confirmed: Yes Med/dose confirmed: Yes Supplies needed: No supplies needed Missed doses: No Estimated days supply on hand: 12 Next cycle/dose due: 09/19/24 Copay amount: 0 Payment confirmed: Yes Delivery method: FedEx Signature required: No Delivery address: [address] [place] [id number] Delivery date: 09/27/24 Questions or concerns for the pharmacist?: No Did you have any side effects believed to be related to this medication, that resulted in hospitalization?: No Current Outpatient Medications on File Prior to Visit Medication Sig traZODone (DESYREL) 50 mg tablet Take 0.5 tablets by mouth daily at bedtime. ferrous sulfate (IRON ORAL) Take 65 mg by mouth. Pt takes 1 tab 3x a week. rasagiline (AZILECT) 1 mg tab take 1 tablet by mouth every day pimavanserin (NUPLAZID) 34 mg capsule Take 1 capsule by mouth daily at bedtime. pantoprazole DR (PROTONIX) 20 mg tablet Take 20 mg by mouth once daily. vitamin A/vitamin D3 (NATURAL VITAMIN D ORAL) Take 2,000 Units by mouth. Calcium Carbonate 650 mg calcium (1,625 mg) tablet Take 650 mg by mouth three times daily with meals. FLUoxetine (PROZAC) 40 mg capsule Take 40 mg by mouth once daily. Ibandronate 150 mg tablet Take 150 mg by mouth once every month. multivitamin with minerals (MULTIPLE VITAMINS 55 PLUS ORAL) once daily. levothyroxine (SYNTHROID) 50 mcg tablet Take 1 tablet by mouth once daily. atorvastatin (LIPITOR) 80 mg tablet Take 80 mg by mouth once daily. No current facility-administered medications on file prior to visit. [facility] CLINICAL ASSESSMENT - NEUROLOGY V7: Assessment to use: Refill Assessment of injection issues or necrosis at injection sites: N/A Screening for infection: Yes Drug specific assessments, as appropriate: Yes Current medication list (including drug interaction assessment): Yes Experience of adverse reactions to the medication: Yes Date of influenza vaccination reminder: 07/12/2024 Date of most recent vaccination assessment: 07/12/2024 Treatment Plan Information: Nuplazid (pimvanserin) Parkinsons Disease Psychosis: Take 34 mg po once daily May take 4-6 weeks to be effective. May be administered without regard to food. Capsules may be swallowed whole or entire contents emptied onto 1 tablespoonful (15 mL) of applesauce, yogurt, pudding, or liquid nutritional supplement to be used immediately without chewing; Potential SE: upset stomach Seek treatment immediately if : allergic reaction, dizziness/passingout, abnormal heartbeat, swelling in arms/legs. New or Worsening hallucinations, Feeling confused Monitoring: Adherence, CMP LFT, CBC, ECG as clinical indicated (dose increase or new Qtc prolonging med, or cardiac risk factors) DDI: Vaccine Assessment Est. Tx Plan Start Date: No information available Estimated Start Date Info: No information available Est. Estimated Treatment Duration: No information available Marty Steel PharmD, Clinical Pharmacist [facility] P: ; F: Pool: P [facility] 08-27-2024 Instructions Jeannie Carter APRN.PEOPLESOFT ADMINISTRATOR - 08/27/2024 3:50 PM EDT We are going to try a low dose medication at bedtime. This is called Trazodone and will help with sleep. Please let me know if this helps with reducing nighttime wakings. Please give to her at bedtime when she is ready to fall asleep (in bed). documented in this encounter [facility] 08-27-2024 Note HNO ID: [id number] Author: JEANNIE CARTER APRN.VIKTOR Service: ? Author Type: Nurse Practitioner Type: Procedures Filed: 08/29/2024 10:28 Note Text: Left STN implanted on 02/18/2021 Right STN implanted on 03/07/2021 Battery implanted on 09/19/23 Right chest Jones Infinity Battery 2.90v System impedances were checked and are within normal ranges. INITIAL SETTINGS: Left STN DBS: 2B - C+ 3.45 (2.0-3.45) mA 60 uS 140 Hz Therapeutic Impedance: 900 ohms Right STN DBS 10- C+ 2.4 (1.0-2.4) mA 60 uS 130 Hz Therapeutic Impedance: 1025 ohms FINAL SETTINGS: Left STN DBS: 2B - C+ 3.50 (2.0-3.65) mA 60 uS 140 Hz Therapeutic Impedance: 562 ohms Right STN DBS 10-11- C+ 2.85(2.0-3.0) mA 60 uS 180 Hz Therapeutic Impedance: 1287 ohms Todays Programming: DBS CHECK LSTN: No changes today RSTN: No changes today Monopolar Review Summary (details of Monopolar review are scanned in below): [facility] 08-27-2024 Procedure note Images from the original note were not included. Left STN implanted on 02/18/2021 Right STN implanted on 03/07/2021 Battery implanted on 09/19/23 Right chest Jones Infinity Battery 2.90v System impedances were checked and are within normal ranges. INITIAL SETTINGS: Left STN DBS: 2B - C+ 3.45 (2.0-3.45) mA 60 uS 140 Hz Therapeutic Impedance: 900 ohms Right STN DBS 10- C+ 2.4 (1.0-2.4) mA 60 uS 130 Hz Therapeutic Impedance: 1025 ohms FINAL SETTINGS: Left STN DBS: 2B - C+ 3.50 (2.0-3.65) mA 60 uS 140 Hz Therapeutic Impedance: 562 ohms Right STN DBS 10-11- C+ 2.85(2.0-3.0) mA 60 uS 180 Hz Therapeutic Impedance: 1287 ohms Todays Programming: DBS CHECK LSTN: No changes today RSTN: No changes today Monopolar Review Summary (details of Monopolar review are scanned in below): [facility] 08-27-2024 Procedure note Images from the original note were not included. Left STN implanted on 02/18/2021 Right STN implanted on 03/07/2021 Battery implanted on 09/19/23 Right chest Jones Infinity Battery 2.90v System impedances were checked and are within normal ranges. INITIAL SETTINGS: Left STN DBS: 2B - C+ 3.45 (2.0-3.45) mA 60 uS 140 Hz Therapeutic Impedance: 900 ohms Right STN DBS 10- C+ 2.4 (1.0-2.4) mA 60 uS 130 Hz Therapeutic Impedance: 1025 ohms FINAL SETTINGS: Left STN DBS: 2B - C+ 3.50 (2.0-3.65) mA 60 uS 140 Hz Therapeutic Impedance: 562 ohms Right STN DBS 10-11- C+ 2.85(2.0-3.0) mA 60 uS 180 Hz Therapeutic Impedance: 1287 ohms Todays Programming: DBS CHECK LSTN: No changes today RSTN: No changes today Monopolar Review Summary (details of Monopolar review are scanned in below): documented in this encounter [facility] 08-27-2024 History of Presen t illness Narrative [facility] - FOLLOW UP EVALUATION Olu Perez DO, DO [address] [facility] [id number] Dear Olu Perez DO, DO: I had the pleasure of seeing Ms. Prado for follow-up today. As you know she is a 79 year old right-handed female with a history of PD since . Bilateral STN DBS Jones placed 03/2021 Subjective Previous Plan-04/28/2023 Visit: Continue with increased range at home if needed No other changes today. Follow up in 6 months for battery check. Interval History: She fell in March and broke a vertebrae and still having some residual pain from this. She is having more hallucinations now. She does not sleep well and is waking up with hallucinations that she does not have insight into. She gets agitated during confused moments. Movement Disorders Medications Schedule - as of the start of the visit: Medications AM PM azilect 1 mg 1 nuplazid 34 mg 1 Questionnaires: In addition, the following areas that may be affected by abnormal involuntary movements were evaluated: Daily activities Difficulties with eatin (none) Difficulties in dressing: Yes (mild) Difficulties with hygiene activities: Yes (mild) Difficulties with handwriting: Yes (mild) Difficulties with doing hobbies and other activities: Yes (severe) Difficulties turning in bed: 0 (none) Difficulties getting out of bed, car or chair: Yes (mild) Tremors/Gait/Balance Shaking or tremors: 0 (none) Walking and balance problems: Yes (moderate) Number of falls in the Last Month: 3 Gait freezin (none) Autonomic/Pain Lightheadeness on standing: Yes (mild) Urinary problems: Yes (slight) Constipation problems: 0 (none) Pain and other sensations: 0 (none) Speech/Swallowing Speech problems: Yes (mild) Droolin (none) Chewing and swallowing problems: Yes (moderate) Sleep/Fatigue Sleep problems: Yes (mild) Daytime sleepiness: Yes (mild) Fatigue: Yes (moderate) Mood/Behavior Depression: PHQ-9 Score: 13 usually representing moderate (10-14) depression. Anxiety: YUE-7 Total Score: 9 usually representing mild (5-9) anxiety. Finally, the following table shows the patient's overall global physical and mental health using the PROMIS scale: PROMIS-10 Flowsheet Row Office Visit from 08/27/2024 in Neurology PAT from 09/06/2023 in Pre Anesthesia Global Physical Health T Score 32.4 32.4 Global Mental Health T Score 31.3 31.3 0-10 Standard Pain Scale 4 4 *PROMIS-10 scoring scale: mean = 50, over 50 is above average, under 50 is below average ALLERGIES Allergen Reactions Ativan [Lorazepam] Mental Status Change Haldol [Haloperidol] Mental Status Change Reglan [Metoclopram* Unknown Amantadine Other: See Comments Constipation, dry mouth Artane Unknown Requip [Ropinirole] Other: See Comments nightmares Sinemet [Carbidopa-* Unknown Current Outpatient Medications Medication Sig ferrous sulfate (IRON ORAL) Take 65 mg by mouth. Pt takes 1 tab 3x a week. rasagiline (AZILECT) 1 mg tab take 1 tablet by mouth every day pimavanserin (NUPLAZID) 34 mg capsule Take 1 capsule by mouth daily at bedtime. pantoprazole DR (PROTONIX) 20 mg tablet Take 20 mg by mouth once daily. vitamin A/vitamin D3 (NATURAL VITAMIN D ORAL) Take 2,000 Units by mouth. Calcium Carbonate 650 mg calcium (1,625 mg) tablet Take 650 mg by mouth three times daily with meals. FLUoxetine (PROZAC) 40 mg capsule Take 40 mg by mouth once daily. Ibandronate 150 mg tablet Take 150 mg by mouth once every month. multivitamin with minerals (MULTIPLE VITAMINS 55 PLUS ORAL) once daily. levothyroxine (SYNTHROID) 50 mcg tablet Take 1 tablet by mouth once daily. atorvastatin (LIPITOR) 80 mg tablet Take 80 mg by mouth once daily. traZODone (DESYREL) 50 mg tablet Take 0.5 tablets by mouth daily at bedtime. cephALEXin (KEFLEX) 500 mg capsule Take 1 capsule by mouth four times daily. No current facility-administered medications for this visit. Objective Vital Signs: BP 134/92 (BP Site: Left Arm, BP Position: Sitting, BP Cuff Size: Regular Adult) Pulse 83 Ht 152.4 cm (5') Wt 47.6 kg (105 lb) SpO2 93% BMI 20.51 kg/m Orthostatic Vitals: None for this encounter No LMP recorded. Patient has had a hysterectomy. Body mass index is 20.51 kg/m . General Physical Examination: She is accompanied by her spouse. General: Awake, alert, interactive, no acute distress, good nutritional status, normal development, well-kept Movement Disorders Scales Performed: MDS-UPDRS Motor subscale condition of exam Medication Off/On/Naiive ON Time of UPDRS Time of Last Medication Last Medication Taken DBS Right ON DBS Left ON MDS-UPDRS Motor subscale scores Speech 0-Normal. No speech problems. Facial Expression 1-Slight. Minimal masked facies manifested only by decreased frequency of blinking. Rigidity Neck 2-Mild. Rigidity detected without the activation maneuver, but full range of motion is easily achieved. Rigidity Right Upper Extremity 0-Normal. No rigidity. Rigidity Left Upper Extremity 1-Slight. Rigidity only detected with activation maneuver. Rigidity Right Lower Extremity 0-Normal. No rigidity. Rigidity Left Lower Extremity 0-Normal. No rigidity. Finger Taps Right 1-Slight. a) the regular rhythm is broken with one or two interruptions or hesitations of the tapping movement, b) slight slowing, c) the amplitude decrements near the end of the 10 taps. Finger Taps Left 2-Mild. a) 3 to 5 interruptions during tapping, b) mild slowing, c) the amplitude decrements midway in the 10-tap sequence. Hand Movements Right 1-Slight. a) the regular rhythm is broken with one or two interruptions or hesitations of the movement, b) slight slowing, c) the amplitude decrements near the end of the task. Hand Movements Left 2-Mild. a) 3 to 5 interruptions during the movements, b) mild slowing, c) the amplitude decrements midway in the task. Arm Movements Right 1-Slight. a) the regular rhythm is broken with one or two interruptions or hesitations of the movement, b) slight slowing, c) the amplitude decrements near the end of the sequence. Arm Movements Left 1-Slight. a) the regular rhythm is broken with one or two interruptions or hesitations of the movement, b) slight slowing, c) the amplitude decrements near the end of the sequence. Toe Taps Right 2-Mild. a) 3 to 5 interruptions during the tapping movements, b) mild slowing, c) the amplitude decrements midway in the task. Toe Taps Left 2-Mild. a) 3 to 5 interruptions during the tapping movements, b) mild slowing, c) the amplitude decrements midway in the task. Leg Agility Right 2-Mild. a) 3 to 5 interruptions during the movements, b) mild slowness, c) the amplitude decrements midway in the task. Leg Agility Left 2-Mild. a) 3 to 5 interruptions during the movements, b) mild slowness, c) the amplitude decrements midway in the task. Arise From Chair 2-Mild. Pushes self up from arms of chair without difficulty. Gait 4-Severe. Cannot walk at all or only with another person's assistance. Gait Freezing 4-Severe. Freezes multiple times during straight walking. Posture Stability 4-Severe. Very unstable, tends to lose balance spontaneously or with just a gentle pull on the shoulders. Posture 4-Severe. Flexion, scoliosis or leaning with extreme abnormality of posture. Body Bradykinesia 1-Slight. Slight global slowness and poverty of spontaneous movements. Postural Tremor Hand Right 0-Normal. No tremor. Postural Tremor Hand Left 1-Slight. Tremor is present but less than 1cm in amplitude. Kinetic Tremor Right 0-Normal. No tremor. Kinetic Tremor Left 0-Normal. No tremor. Rest Tremor Amplitude Right Upper Extremity 0-Normal. No tremor. Rest Tremor Amplitude Left Upper Extremity 0-Normal. No tremor. Rest Tremor Amplitude Right Lower Extremity 0-Normal. No tremor. Rest Tremor Amplitude Left Lower Extremity 0-Normal. No tremor. Rest Tremor Amplitude Lip/Jaw 0-Normal. No tremor. Rest Tremor Constancy 0-Normal. No tremor. MDS-UPDRS Motor subscale totals Left Total 11 Right Total 7 Midline Total 22 Tremor Total / 10 1 PIGD Total / 3 12 Overall Total 40 % Change Compared to Last Filed Total 233.33 Assessment and Plan: Assessment Ms. Prado is a right-handed 79 year old year old female with Parkinson's disease s/p Jones Bilateral STN DBS in 2020 Tamar continues to struggle with dementia issues more than anything in her PD symptoms. She is impulsive and forgetful and will walk without her walker often which leads to falls. They have an alarm on her chair but it doesn't always work. She continues to have falls when Anders is not around. She is also having more hallucinations during the night again which she lacks insight into. This becomes troublesome for them to sort out as she starts getting agitated. There are some nights she sleeps well so she does not have hallucinations and wakes up at her baseline. Daytime hallucinations are not bothersome and she is easily redirected. We are going to try and address sleep first and see if we can get her sleeping better and not waking at night which leads to hallucinations. Anders will let me know if she tolerates this or not. The following are the current problems noted and addressed during this visit: Parkinson's disease without dyskinesia or fluctuating manifestations (hcc) (primary encounter diagnosis) Plan 08/27/2024 Visit: We are going to try a low dose medication at bedtime. This is called Trazodone and will help with sleep. Please let me know if this helps with reducing nighttime wakings. Please give to her at bedtime when she is ready to fall asleep (in bed). Patient's perception of importance for healthcare provider to let them know of research trials for which they may be eligible? Very Important Interested in clinical research? Not currently Updated Movement Disorders Medication Schedule: Medications AM PM azilect 1 mg 1 nuplazid 34 mg 1 DBS CHECK Thank you for allowing me to be part of the clinical care of this patient! I look forward to continued participation in the patient s care with you. Please do not hesitate to call with any questions. Sincerely, Jeannie Carter APRN.PEOPLESOFT ADMINISTRATOR documented in this encounter [facility] 08-27-2024 Note HNO ID: [id number] Author: JEANNIE CARTER APRN.PEOPLESOFT ADMINISTRATOR Service: ? Author Type: Nurse Practitioner Type: Progress Notes Filed: 08/29/2024 10:28 Note Text: [facility] - FOLLOW UP EVALUATION Olu Perez DO, DO [address] [facility] [id number] Dear Olu Perez DO, DO: I had the pleasure of seeing Ms. Prado for follow-up today. As you know she is a 79 year old right-handed female with a history of PD since . Bilateral STN DBS Jones placed 03/2021 Subjective Previous Plan-04/28/2023 Visit: Continue with increased range at home if needed No other changes today. Follow up in 6 months for battery check. Interval History: She fell in March and broke a vertebrae and still having some residual pain from this. She is having more hallucinations now. She does not sleep well and is waking up with hallucinations that she does not have insight into. She gets agitated during confused moments. Movement Disorders Medications Schedule - as of the start of the visit: Medications AM PM azilect 1 mg 1 nuplazid 34 mg 1 Questionnaires: In addition, the following areas that may be affected by abnormal involuntary movements were evaluated: Daily activities Difficulties with eatin (none) Difficulties in dressing: Yes (mild) Difficulties with hygiene activities: Yes (mild) Difficulties with handwriting: Yes (mild) Difficulties with doing hobbies and other activities: Yes (severe) Difficulties turning in bed: 0 (none) Difficulties getting out of bed, car or chair: Yes (mild) Tremors/Gait/Balance Shaking or tremors: 0 (none) Walking and balance problems: Yes (moderate) Number of falls in the Last Month: 3 Gait freezin (none) Autonomic/Pain Lightheadeness on standing: Yes (mild) Urinary problems: Yes (slight) Constipation problems: 0 (none) Pain and other sensations: 0 (none) Speech/Swallowing Speech problems: Yes (mild) Droolin (none) Chewing and swallowing problems: Yes (moderate) Sleep/Fatigue Sleep problems: Yes (mild) Daytime sleepiness: Yes (mild) Fatigue: Yes (moderate) Mood/Behavior Depression: PHQ-9 Score: 13 usually representing moderate (10-14) depression. Anxiety: YUE-7 Total Score: 9 usually representing mild (5-9) anxiety. Finally, the following table shows the patient's overall global physical and mental health using the PROMIS scale: PROMIS-10 Flowsheet Row Office Visit from 08/27/2024 in Neurology PAT from 09/06/2023 in Pre Anesthesia Global Physical Health T Score 32.4 32.4 Global Mental Health T Score 31.3 31.3 0-10 Standard Pain Scale 4 4 *PROMIS-10 scoring scale: mean = 50, over 50 is above average, under 50 is below average ALLERGIES Allergen Reactions Ativan [Lorazepam] Mental Status Change Haldol [Haloperidol] Mental Status Change Reglan [Metoclopram* Unknown Amantadine Other: See Comments Constipation, dry mouth Artane Unknown Requip [Ropinirole] Other: See Comments nightmares Sinemet [Carbidopa-* Unknown Current Outpatient Medications Medication Sig ferrous sulfate (IRON ORAL) Take 65 mg by mouth. Pt takes 1 tab 3x a week. rasagiline (AZILECT) 1 mg tab take 1 tablet by mouth every day pimavanserin (NUPLAZID) 34 mg capsule Take 1 capsule by mouth daily at bedtime. pantoprazole DR (PROTONIX) 20 mg tablet Take 20 mg by mouth once daily. vitamin A/vitamin D3 (NATURAL VITAMIN D ORAL) Take 2,000 Units by mouth. Calcium Carbonate 650 mg calcium (1,625 mg) tablet Take 650 mg by mouth three times daily with meals. FLUoxetine (PROZAC) 40 mg capsule Take 40 mg by mouth once daily. Ibandronate 150 mg tablet Take 150 mg by mouth once every month. multivitamin with minerals (MULTIPLE VITAMINS 55 PLUS ORAL) once daily. levothyroxine (SYNTHROID) 50 mcg tablet Take 1 tablet by mouth once daily. atorvastatin (LIPITOR) 80 mg tablet Take 80 mg by mouth once daily. traZODone (DESYREL) 50 mg tablet Take 0.5 tablets by mouth daily at bedtime. cephALEXin (KEFLEX) 500 mg capsule Take 1 capsule by mouth four times daily. No current facility-administered medications for this visit. Objective Vital Signs: BP 134/92 (BP Site: Left Arm, BP Position: Sitting, BP Cuff Size: Regular Adult) Pulse 83 Ht 152.4 cm (5') Wt 47.6 kg (105 lb) SpO2 93% BMI 20.51 kg/m? Orthostatic Vitals: None for this encounter No LMP recorded. Patient has had a hysterectomy. Body mass index is 20.51 kg/m?. General Physical Examination: She is accompanied by her spouse. General: Awake, alert, interactive, no acute distress, good nutritional status, normal development, well-kept Movement Disorders Scales Performed: MDS-UPDRS Motor subscale condition of exam Medication Off/On/Naiive ON Time of UPDRS Time of Last Medication Last Medication Taken DBS Right ON DBS Left ON MDS-UPDRS Motor subscale scores Speech 0-Normal. No speech problems. Facial Expression 1-Slight. Minimal masked (more content not included)... [facility] 07-12-2024 History of Presen t illness Narrative [facility] Refill Assessment Medication(s): Nuplazid returning the call. No missed doses OK to ship Leydi Gonzalez [facility] Patient's current medication list and adherence status to current therapy were reviewed by Specialty Pharmacy clinical pharmacist to identify any new drug interactions or non-compliance to therapy. Therapy continues to be appropriate for disease, patient response, and medical condition. Verification of therapeutic benefit and effectiveness with current therapy was completed. Adverse events, barriers in adherence, and side effects were assessed and addressed if applicable. Will proceed with refill with no changes in therapy - patient progressing towards achieving therapeutic goals based on medication-specific laboratory parameters, disease state markers and outcomes. Office/provider notes have been reviewed prior to dispensing the medication. 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 Patient confirmed: Yes Med/dose confirmed: Yes Supplies needed: No supplies needed Missed doses: No Estimated days supply on hand: 16 Copay amount: 0 Delivery method: FedEx Signature required: No Delivery address: [address] [place] [address] Delivery date: 07/17/24 Questions or concerns for the pharmacist?: No Did you have any side effects believed to be related to this medication, that resulted in hospitalization?: No Current Outpatient Medications on File Prior to Visit Medication Sig pimavanserin (NUPLAZID) 34 mg capsule Take 1 capsule by mouth daily at bedtime. cephALEXin (KEFLEX) 500 mg capsule Take 1 capsule by mouth four times daily. rasagiline (AZILECT) 1 mg tab TAKE 1 TABLET BY MOUTH EVERY DAY pantoprazole DR (PROTONIX) 20 mg tablet Take 20 mg by mouth once daily. vitamin A/vitamin D3 (NATURAL VITAMIN D ORAL) Take 2,000 Units by mouth. Calcium Carbonate 650 mg calcium (1,625 mg) tablet Take 650 mg by mouth three times daily with meals. FLUoxetine (PROZAC) 40 mg capsule Take 40 mg by mouth once daily. Ibandronate 150 mg tablet Take 150 mg by mouth once every month. multivitamin with minerals (MULTIPLE VITAMINS 55 PLUS ORAL) once daily. levothyroxine (SYNTHROID) 50 mcg tablet Take 1 tablet by mouth once daily. atorvastatin (LIPITOR) 80 mg tablet Take 80 mg by mouth once daily. No current facility-administered medications on file prior to visit. [facility] CLINICAL ASSESSMENT - NEUROLOGY V7: Assessment to use: Refill Assessment of injection issues or necrosis at injection sites: N/A Screening for infection: Yes Drug specific assessments, as appropriate: Yes Current medication list (including drug interaction assessment): Yes Experience of adverse reactions to the medication: Yes Date of influenza vaccination reminder: 07/12/2024 Date of most recent vaccination assessment: 07/12/2024 Treatment Plan Information: No information available Est. Tx Plan Start Date: No information available Estimated Start Date Info: No information available Est. Estimated Treatment Duration: No information available Leydi Gonzalez RPh documented in this encounter [facility] 06-13-2024 History of Presen t illness Narrative [facility] Assessment Medication(s): Nuplazid Patient's current medication list and adherence status to current therapy were reviewed by Specialty Pharmacy clinical pharmacist to identify any new drug interactions or non-compliance to therapy. Therapy continues to be appropriate for disease, patient response, and medical condition. Verification of therapeutic benefit and effectiveness with current therapy was completed. Adverse events, barriers in adherence, and side effects were assessed and addressed if applicable. Will proceed with refill with no changes in therapy - patient progressing towards achieving therapeutic goals based on medication-specific laboratory parameters, disease state markers and outcomes. 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 Patient confirmed: Yes Med/dose confirmed: Yes Missed doses: No Estimated days supply on hand: 8 Next cycle/dose due: 06/14/24 Copay amount: 0 Delivery method: FedEx Signature required: Waived on patient request Delivery address: [id number] [place] [id number] Delivery date: 06/17/24 Questions or concerns for the pharmacist?: No Did you have any side effects believed to be related to this medication, that resulted in hospitalization?: No Current Outpatient Medications on File Prior to Visit Medication Sig pimavanserin (NUPLAZID) 34 mg capsule Take 1 capsule by mouth daily at bedtime. cephALEXin (KEFLEX) 500 mg capsule Take 1 capsule by mouth four times daily. rasagiline (AZILECT) 1 mg tab TAKE 1 TABLET BY MOUTH EVERY DAY pantoprazole DR (PROTONIX) 20 mg tablet Take 20 mg by mouth once daily. vitamin A/vitamin D3 (NATURAL VITAMIN D ORAL) Take 2,000 Units by mouth. Calcium Carbonate 650 mg calcium (1,625 mg) tablet Take 650 mg by mouth three times daily with meals. FLUoxetine (PROZAC) 40 mg capsule Take 40 mg by mouth once daily. Ibandronate 150 mg tablet Take 150 mg by mouth once every month. multivitamin with minerals (MULTIPLE VITAMINS 55 PLUS ORAL) once daily. levothyroxine (SYNTHROID) 50 mcg tablet Take 1 tablet by mouth once daily. atorvastatin (LIPITOR) 80 mg tablet Take 80 mg by mouth once daily. No current facility-administered medications on file prior to visit. [facility] CLINICAL ASSESSMENT - NEUROLOGY V7: Assessment to use: Refill Date of influenza vaccination reminder: 07/19/2023 Date of most recent vaccination assessment: 07/19/2023 Treatment Plan Information: No information available Est. Tx Plan Start Date: No information available Estimated Start Date Info: No information available Est. Estimated Treatment Duration: No information available Francisco J Woodward CPhT Neurology, Cardiology & Infectious Disease [facility] documented in this encounter [facility] 05-20-2024 History of Presen t illness Narrative [facility] Assessment Medication(s): Nuplazid Patient's current medication list and adherence status to current therapy were reviewed by Specialty Pharmacy clinical pharmacist to identify any new drug interactions or non-compliance to therapy. Therapy continues to be appropriate for disease, patient response, and medical condition. Verification of therapeutic benefit and effectiveness with current therapy was completed. Adverse events, barriers in adherence, and side effects were assessed and addressed if applicable. Will proceed with refill with no changes in therapy - patient progressing towards achieving therapeutic goals based on medication-specific laboratory parameters, disease state markers and outcomes. 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 Patient confirmed: Yes Med/dose confirmed: Yes Missed doses: No Estimated days supply on hand: 7 Next cycle/dose due: 05/21/24 Copay amount: 0 Delivery method: FedEx Signature required: Waived on patient request Delivery address: [address] [place] [id number] Delivery date: 05/22/24 Questions or concerns for the pharmacist?: No Did you have any side effects believed to be related to this medication, that resulted in hospitalization?: No Current Outpatient Medications on File Prior to Visit Medication Sig pimavanserin (NUPLAZID) 34 mg Take 1 capsule by mouth daily at bedtime. cephALEXin (KEFLEX) 500 mg capsule Take 1 capsule by mouth four times daily. rasagiline (AZILECT) 1 mg tab TAKE 1 TABLET BY MOUTH EVERY DAY pantoprazole DR (PROTONIX) 20 mg tablet Take 20 mg by mouth once daily. vitamin A/vitamin D3 (NATURAL VITAMIN D ORAL) Take 2,000 Units by mouth. Calcium Carbonate 650 mg calcium (1,625 mg) tablet Take 650 mg by mouth three times daily with meals. FLUoxetine (PROZAC) 40 mg capsule Take 40 mg by mouth once daily. Ibandronate 150 mg tablet Take 150 mg by mouth once every month. multivitamin with minerals (MULTIPLE VITAMINS 55 PLUS ORAL) once daily. levothyroxine (SYNTHROID) 50 mcg tablet Take 1 tablet by mouth once daily. atorvastatin (LIPITOR) 80 mg tablet Take 80 mg by mouth once daily. No current facility-administered medications on file prior to visit. [facility] Visit Assessment - Neurology: Assessment to use: Refill Vaccination Assessment: Date of influenza vaccination reminder: 07/19/2023 Date of most recent vaccination assessment: 07/19/2023 Francisco J Woodward CPhT Neurology, Cardiology & Infectious Disease [facility] documented in this encounter [facility] 05-17-2024 Telephone encounter Note Please review and if therapy is being continued, please sign this order request via eRx to [facility]. Requested Prescriptions Pending Prescriptions Disp Refills pimavanserin (NUPLAZID) 34 mg 30 capsule 1 Sig: Take 1 capsule by mouth daily at bedtime. Last OV 09/2023 Yuly Walters, PharmD, BCPS, CSP, MSCS Clinical Pharmacist [facility] P: ; F: Pool: P [facility] Work Phone: 05-17-2024 Miscellaneous Notes Please review and if therapy is being continued, please sign this order request via eRx to [facility]. Requested Prescriptions Pending Prescriptions Disp Refills pimavanserin (NUPLAZID) 34 mg 30 capsule 1 Sig: Take 1 capsule by mouth daily at bedtime. Last OV 09/2023 Yuly Walters, PharmD, BCPS, CSP, MSCS Clinical Pharmacist [facility] P: ; F: Pool: P [facility] documented in this encounter [facility] 04-16-2024 History of Presen t illness Narrative [facility] Assessment Medication(s): Nuplazid Patient's current medication list and adherence status to current therapy were reviewed by Specialty Pharmacy clinical pharmacist to identify any new drug interactions or non-compliance to therapy. Therapy continues to be appropriate for disease, patient response, and medical condition. Verification of therapeutic benefit and effectiveness with current therapy was completed. Adverse events, barriers in adherence, and side effects were assessed and addressed if applicable. Will proceed with refill with no changes in therapy - patient progressing towards achieving therapeutic goals based on medication-specific laboratory parameters, disease state markers and outcomes. 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 Patient confirmed: Yes Med/dose confirmed: Yes Missed doses: No Estimated days supply on hand: 12 Next cycle/dose due: 04/17/24 Copay amount: 0 Delivery method: FedEx Signature required: Waived on patient request Delivery address: [address] [place] [id number] Delivery date: 04/23/24 Questions or concerns for the pharmacist?: No Current Outpatient Medications on File Prior to Visit Medication Sig pimavanserin (NUPLAZID) 34 mg Take 1 capsule by mouth daily at bedtime. cephALEXin (KEFLEX) 500 mg capsule Take 1 capsule by mouth four times daily. rasagiline (AZILECT) 1 mg tab TAKE 1 TABLET BY MOUTH EVERY DAY pantoprazole DR (PROTONIX) 20 mg tablet Take 20 mg by mouth once daily. vitamin A/vitamin D3 (NATURAL VITAMIN D ORAL) Take 2,000 Units by mouth. Calcium Carbonate 650 mg calcium (1,625 mg) tablet Take 650 mg by mouth three times daily with meals. FLUoxetine (PROZAC) 40 mg capsule Take 40 mg by mouth once daily. Ibandronate 150 mg tablet Take 150 mg by mouth once every month. multivitamin with minerals (MULTIPLE VITAMINS 55 PLUS ORAL) once daily. levothyroxine (SYNTHROID) 50 mcg tablet Take 1 tablet by mouth once daily. atorvastatin (LIPITOR) 80 mg tablet Take 80 mg by mouth once daily. No current facility-administered medications on file prior to visit. [facility] Visit Assessment - Neurology: Assessment to use: Refill Vaccination Assessment: Date of influenza vaccination reminder: 07/19/2023 Date of most recent vaccination assessment: 07/19/2023 Francisco J Woodward CPhT Neurology, Cardiology & Infectious Disease [facility] documented in this encounter [facility] 03-23-2024 Note . MICRO - Microbiology PROCEDURE: Urine Culture [*1] SOURCE: Urine, Clean Catch BODY SITE: COLLECTED DATE/TIME: 03/21/2024 14:45 EDT RECEIVED DATE/TIME: 03/21/2024 22:08 EDT START DATE/TIME: 03/21/2024 22:08 EDT FREE TEXT SOURCE: FINAL REPORTS Final Report [] Verified Date/Time/Personnel: 03/23/2024 08:05 EDT <10,000 cfu/ml. No Significant growth. Sensitivity not indicated. PRELIMINARY REPORTS Preliminary Report [] Verified Date/Time/Personnel: 03/22/2024 10:37 EDT No growth to date Performing Locations *1: This test was performed at: [facility], [address] [place] [address], [id number] , [facility] ([place]) 03-21-2024 Note . MICRO - Microbiology PROCEDURE: Urine Culture [*1] SOURCE: Urine, Clean Catch BODY SITE: COLLECTED DATE/TIME: 03/19/2024 15:00 EDT RECEIVED DATE/TIME: 03/19/2024 21:17 EDT START DATE/TIME: 03/19/2024 21:17 EDT FREE TEXT SOURCE: FINAL REPORTS Final Report [] Verified Date/Time/Personnel: 03/21/2024 07:29 EDT 50,000 - 100,000 cfu/ml Multiple bacterial morphotypes present. Probable Contamination. Suggest recollection if clinically indicated. PRELIMINARY REPORTS Preliminary Report [] Verified Date/Time/Personnel: 03/20/2024 09:11 EDT Culture results pending. Performing Locations *1: This test was performed at: [facility], [address] [place] [address], [id number] , [facility] ([place]) 03-19-2024 History of Presen t illness Narrative [facility] Assessment Medication(s): Nuplazid Patient's current medication list and adherence status to current therapy were reviewed by Specialty Pharmacy clinical pharmacist to identify any new drug interactions or non-compliance to therapy. Therapy continues to be appropriate for disease, patient response, and medical condition. Verification of therapeutic benefit and effectiveness with current therapy was completed. Adverse events, barriers in adherence, and side effects were assessed and addressed if applicable. Will proceed with refill with no changes in therapy - patient progressing towards achieving therapeutic goals based on medication-specific laboratory parameters, disease state markers and outcomes. 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 Patient confirmed: Yes Med/dose confirmed: Yes Missed doses: No Estimated days supply on hand: 10 Next cycle/dose due: 03/20/24 Copay amount: 0 Delivery method: FedEx Signature required: Waived on patient request Delivery address: [id number] [place] [id number] Delivery date: 03/25/24 Questions or concerns for the pharmacist?: No Current Outpatient Medications on File Prior to Visit Medication Sig pimavanserin (NUPLAZID) 34 mg Take 1 capsule by mouth daily at bedtime. cephALEXin (KEFLEX) 500 mg capsule Take 1 capsule by mouth four times daily. rasagiline (AZILECT) 1 mg tab TAKE 1 TABLET BY MOUTH EVERY DAY pantoprazole DR (PROTONIX) 20 mg tablet Take 20 mg by mouth once daily. vitamin A/vitamin D3 (NATURAL VITAMIN D ORAL) Take 2,000 Units by mouth. Calcium Carbonate 650 mg calcium (1,625 mg) tablet Take 650 mg by mouth three times daily with meals. FLUoxetine (PROZAC) 40 mg capsule Take 40 mg by mouth once daily. Ibandronate 150 mg tablet Take 150 mg by mouth once every month. multivitamin with minerals (MULTIPLE VITAMINS 55 PLUS ORAL) once daily. levothyroxine (SYNTHROID) 50 mcg tablet Take 1 tablet by mouth once daily. atorvastatin (LIPITOR) 80 mg tablet Take 80 mg by mouth once daily. No current facility-administered medications on file prior to visit. [facility] Visit Assessment - Neurology: Assessment to use: Refill Vaccination Assessment: Date of influenza vaccination reminder: 07/19/2023 Date of most recent vaccination assessment: 07/19/2023 Francisco J Woodward CPhT Neurology, Cardiology & Infectious Disease [facility] documented in this encounter [facility] 03-18-2024 Telephone encounter Note Patient is in need of a new prescription as follows: Requested Prescriptions Pending Prescriptions Disp Refills pimavanserin (NUPLAZID) 34 mg 30 capsule 1 Sig: Take 1 capsule by mouth daily at bedtime. Last office visit 04-28-23 No follow up office visit currently scheduled Please review and advise. Jonathan Juan RPh [facility] 03-18-2024 Miscellaneous Notes Patient is in need of a new prescription as follows: Requested Prescriptions Pending Prescriptions Disp Refills pimavanserin (NUPLAZID) 34 mg 30 capsule 1 Sig: Take 1 capsule by mouth daily at bedtime. Last office visit 04-28-23 No follow up office visit currently scheduled Please review and advise. Jonathan Juan RPh documented in this encounter [facility] 01-15-2024 History of Presen t illness Narrative [facility] Assessment Medication(s): Nuplazid Patient's current medication list and adherence status to current therapy were reviewed by Specialty Pharmacy clinical pharmacist to identify any new drug interactions or non-compliance to therapy. Therapy continues to be appropriate for disease, patient response, and medical condition. Verification of therapeutic benefit and effectiveness with current therapy was completed. Adverse events, barriers in adherence, and side effects were assessed and addressed if applicable. Will proceed with refill with no changes in therapy - patient progressing towards achieving therapeutic goals based on medication-specific laboratory parameters, disease state markers and outcomes. 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 Patient confirmed: Yes Med/dose confirmed: Yes Missed doses: No Estimated days supply on hand: 12 Next cycle/dose due: 01/16/24 Copay amount: 0 Delivery method: FedEx Signature required: Waived on patient request Delivery address: [address] [place], [place] [id number] Delivery date: 01/19/24 Questions or concerns for the pharmacist?: No [facility] Visit Assessment - Neurology: Assessment to use: Refill Vaccination Assessment: Date of influenza vaccination reminder: 07/19/2023 Date of most recent vaccination assessment: 07/19/2023 Francisco J Woodward CPhT Neurology, Cardiology & Infectious Disease [facility] documented in this encounter [facility] 10-16-2023 History of Presen t illness Narrative [facility] Assessment Medication(s): Nuplazid Patient's current medication list and adherence status to current therapy were reviewed by Specialty Pharmacy clinical pharmacist to identify any new drug interactions or non-compliance to therapy. Therapy continues to be appropriate for disease, patient response, and medical condition. Verification of therapeutic benefit and effectiveness with current therapy was completed. Adverse events, barriers in adherence, and side effects were assessed and addressed if applicable. Will proceed with refill with no changes in therapy - patient progressing towards achieving therapeutic goals based on medication-specific laboratory parameters, disease state markers and outcomes. 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 Patient confirmed: Yes Med/dose confirmed: Yes Supplies needed: No supplies needed Missed doses: No Estimated days supply on hand: 8 Next cycle/dose due: 10/16/23 Copay amount: 0 Payment confirmed: Yes Delivery method: FedEx Signature required: No Delivery address: [address] [place] [id number] Delivery date: 12/14/23 Questions or concerns for the pharmacist?: No Wolf Ortiz CPhT Lead Tech Cardiology, Neurology & Infectious Disease [facility] Visit Assessment - Neurology: Assessment to use: Refill Vaccination Assessment: Date of influenza vaccination reminder: 07/19/2023 Date of most recent vaccination assessment: 07/19/2023 documented in this encounter [facility] 09-27-2023 Note . MICRO - Microbiology PROCEDURE: Urine Culture [*1] SOURCE: Urine, Clean Catch BODY SITE: COLLECTED DATE/TIME: 09/25/2023 15:45 EST RECEIVED DATE/TIME: 09/25/2023 20:48 EST START DATE/TIME: 09/25/2023 20:48 EST FREE TEXT SOURCE: FINAL REPORTS Final Report [] Verified Date/Time/Personnel: 09/27/2023 07:32 EST No growth at 48 hours. PRELIMINARY REPORTS Preliminary Report [] Verified Date/Time/Personnel: 09/26/2023 09:00 EST No growth to date Performing Locations *1: This test was performed at: [address], [facility] , [facility] ([place]) 09-18-2023 History of Presen t illness Narrative [facility] Assessment Medication(s): Nuplazid Patient's current medication list and adherence status to current therapy were reviewed by Specialty Pharmacy clinical pharmacist to identify any new drug interactions or non-compliance to therapy. Therapy continues to be appropriate for disease, patient response, and medical condition. Verification of therapeutic benefit and effectiveness with current therapy was completed. Adverse events, barriers in adherence, and side effects were assessed and addressed if applicable. Will proceed with refill with no changes in therapy - patient progressing towards achieving therapeutic goals based on medication-specific laboratory parameters, disease state markers and outcomes. 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 Patient confirmed: Yes Med/dose confirmed: Yes Supplies needed: No supplies needed Missed doses: No Estimated days supply on hand: 10 Copay amount: 0 Payment confirmed: Yes Delivery method: FedEx Signature required: No Delivery address: [address] [facility] [address] Delivery date: 09/22/23 Questions or concerns for the pharmacist?: No [facility] CLINICAL ASSESSMENT - NEUROLOGY V6 Isela Juarez CPhT Cardiology, Neurology & Infectious Disease [facility] documented in this encounter [facility] 09-09-2023 Note . MICRO - Microbiology PROCEDURE: Urine Culture [*1] SOURCE: Urine, Clean Catch BODY SITE: COLLECTED DATE/TIME: 09/07/2023 10:36 EDT RECEIVED DATE/TIME: 09/07/2023 20:42 EDT START DATE/TIME: 09/07/2023 20:43 EDT FREE TEXT SOURCE: FINAL REPORTS Final Report [] Verified Date/Time/Personnel: 09/09/2023 07:31 EDT 10,000 - 50,000 cfu/ml Pseudomonas aeruginosa PRELIMINARY REPORTS Preliminary Report [] Verified Date/Time/Personnel: 09/08/2023 11:01 EDT 10,000 - 50,000 cfu/ml Pseudomonas aeruginosa ERASMO to follow SUSCEPTIBILITY RESULTS Pseudomonas aeruginosa Antibiotic ERASMO Dilut ERASMO Inter Aztreonam <=4 Susceptible Cefepime <=2 Susceptible Ceftazidime 4 Susceptible Imipenem <=1 Susceptible Levofloxacin <=0.5 Susceptible Meropenem <=1 Susceptible Piperacillin/ <=8 Susceptible Tazobactam Tobramycin <=2 Susceptible Performing Locations *1: This test was performed at: [facility], [address] [place] [address], [id number] , [facility] ([place]) 09-06-2023 History of Presen t illness Narrative Patient here for pre-op routing for IPG replacement surgery. Reviewed patient's pre-op testing schedule and day of surgery schedule. Surgical guide and pre-op checklist reviewed. All questions answered. AMBULATORY PATIENT EDUCATION NOTE READINESS TO LEARN COGNITIVE ABILITY: Alert and oriented MOTIVATION TO LEARN: Interested FAMILY SUPPORT: High - Very involved in pt care INSTRUCTION PROVIDED TO: Patient and Spouse PATIENT LEARNS BEST BY: Individual, verbal and written instruction FACTORS AFFECTING LEARNING: None PHYSICAL LIMITATIONS AFFECTING LEARNING: None LEARNING RESPONSE DIAGNOSIS: PD METHOD OF INSTRUCTION: Individual, verbal and written instruction PATIENT / FAMILY RESPONSE: Verbalizes understanding of upcoming procedure FOLLOW-UP PLAN: Complete - No need for follow-up SUPPLEMENTAL MATERIAL: Surgical booklet, discharge instructions, skin prep and instructions Right chest Jones Infinity 5 IPG interrogated and impedance are WNL. Replace generator soon message is displayed. Gregory Crook PA-C documented in this encounter [facility] 09-06-2023 History of Presen t illness Narrative CC: IPG near depletion HPI: Tamar Prado returns to clinic to discuss replacement of her IPG for DBS. She reports improvement in tremor with DBS. The IPG is nearing depletion and she would like to have it replaced. Focused Exam: Infraclavicular region examined, no erythema, edema, warmth, or drainage noted. Incision well-healed without evidence of dehiscence Impression: Tamar Prado is a 78 yr old female patient with a history of tremor predominant Parkinson's. She has bilateral STN deep brain stimulation for management of Parkinson's. She reports good improvements in motor symptoms with DBS and is interested in continuing with this therapy. She currently has an Jones Infinity 5 IPG in the right chest. The surgical procedure to replace the IPG was explained to the patient in detail, including the r/b/a/p. Plan: Right chest replacement of pulse generator. Albert Qureshi MD documented in this encounter [facility] 09-06-2023 Instructions Lety Grove PA-C - 09/06/2023 11:00 AM EDT PATIENT PREOPERATIVE INSTRUCTIONS Gregory Crook PA-C has scheduled you for your procedure at this surgery center: [facility] [place] Scheduling Office: [phone] --[address] [place] [address]. Please read below carefully for your personalized instructions. Dietary Restrictions: - Nothing to eat or drink after midnight except for a sip of water with approved medications. Medications: Unless instructed differently below, stay on all of your medications until your surgery. If you start any new medications after today's visit, please contact your surgeon. Pre-Surgery Med Instructions Medication Instructions rasagiline (AZILECT) 1 mg tab Do not take the day of surgery pimavanserin (NUPLAZID) 34 mg Do not take the day of surgery pantoprazole DR (PROTONIX) 20 mg tablet Take the day of surgery with a small sip of water vitamin A/vitamin D3 (NATURAL VITAMIN D ORAL) Do not take the day of surgery Calcium Carbonate 650 mg calcium (1,625 mg) tablet Do not take the day of surgery FLUoxetine (PROZAC) 40 mg capsule Take the day of surgery with a small sip of water Ibandronate 150 mg tablet Do not take the day of surgery multivitamin with minerals (MULTIPLE VITAMINS 55 PLUS ORAL) Stop 7 days before surgery levothyroxine (SYNTHROID) 50 mcg tablet Take the day of surgery with a small sip of water atorvastatin (LIPITOR) 80 mg tablet Take the day of surgery with a small sip of water If you start any new medications after today's visit, please contact the surgeon's office. Blood Thinning Medications: - Stop NSAIDS (Ibuprofen, Advil, Aleve, Motrin, Celebrex, Mobic, etc.) 7 days before surgery, as directed by your surgeon. - Stop Aspirin 7 days before surgery, as directed by your surgeon. - Stop Vitamin E, ALL multi-vitamins, herbals and dietary supplements 7 days before surgery. - You may take Tylenol (Acetaminophen) or any of your pain medications that do not contain aspirin or NSAIDS as needed. Important Reminders: - Candy, mints, and tobacco products are NOT permitted the morning of surgery. - Hearing aids, dentures and glasses may be worn the morning of surgery. - NO jewelry, body piercings, makeup, hairpins or contacts are to be worn the day of surgery. If you develop symptoms such as a fever, cold, or flu, or have other changes to your health within TWO DAYS of scheduled surgery or the morning of surgery, please contact the surgery center above. Personal Belongings: -Please have photo ID and insurance cards. -If you do not have a copy of advance directives on file with us, please bring a copy with you on the day of surgery. - Leave ALL valuables and money at home or with family members. For Outpatient Procedures: - YOU MUST HAVE A RESPONSIBLE MINER TAKE YOU HOME. A GRANTS AND CONTRACTS ASSISTANT OR OPEN HEARTH FURNACE OPERATOR HELPER CANNOT BE MADE A RESPONSIBLE MINER. - We recommend that a responsible person stays with you overnight to take care of you. - You cannot stay in a hotel alone after outpatient surgery. You will not be permitted to have your surgery, if you do not have someone to take care of you. Arrival Time for Surgery: - To obtain your arrival time for surgery, call your physician's office the day before your surgery. - If your surgery is scheduled for Monday, call the Monday before. Your surgeon s personal lines agent will tell you what time to call the office. - If you have not reached the departmental personal lines agent by 5 P.M., call [phone] after 5 P.M. the day before your surgery. Please be aware that emergency situations arise, which may delay or change your surgical time. If this happens, we will notify you as soon as possible and regret any inconvenience. If you already have an Advance Directive, please fax a copy to [phone] or email to for it to be added to your chart. If you do not have an Advance Directive, you can find the appropriate form and more information at [email or web address]. We recommend that you complete the Advance Directive form found on the website and bring it with you the day of your surgery. It can be witnessed and scanned into your chart that day. Lety Grove PA-C documented in this encounter [facility] 09-06-2023 History and physical note HISTORY AND PHYSICAL EXAMINATION SERVICE DATE: 09/06/2023 SERVICE TIME: 10:47 AM PRIMARY CARE PHYSICIAN: Olu Perez DO, DO REASON FOR VISIT: Tamar Prado is a 78 year old female who is scheduled for INSERT/REPLACE CRANIAL NEUROSTIMULOR GENERATOR/CASTING AGENT W/ CONNECT TO MULTI ELECTRODES at the request of Dr. Gregory Crook for consultation. My final recommendation will be communicated back to the requesting physician by way of shared medical record or letter. The patient has the following: ACTIVE PROBLEM LIST Parkinson's Disease Diabetes Mellitus (Hcc) Diabetic Acidosis, Type II (Hcc) Gastroesophageal Reflux Disease Hypercholesterolemia Hypertension Hyperthyroidism Osteoporosis Hypothyroidism (Acquired) Moderate Protein-Calorie Malnutrition (Hcc) Subjective CHIEF COMPLAINT: parkinson's disease HPI: 78 year old female scheduled for INSERT/REPLACE CRANIAL NEUROSTIMULOR GENERATOR/CASTING AGENT W/ CONNECT TO MULTI ELECTRODES on 09/19/2023. Patient has parkinson's disease. Had DBS placed in 2020. Denies any fever, chills, nausea, vomiting, chest pain, abdominal pain, SOB. 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 Parkinson's disease PAST SURGICAL HISTORY Procedure Laterality Date HYSTERECTOMY 01/2016 PARATHYROIDECTOMY/EXPLORATION PARATHYROIDS 2016 2 at once PAST SURGICAL HISTORY OF DBS PAST SURGICAL HISTORY OF skin cancer excision FAMILY HISTORY Problem Relation Age of Onset Breast Cancer Mother Diabetes Mother Heart disease Mother Hypertension Mother DVT Mother Blindness Sister macular degeneration Glaucoma Brother Anesthesia Problems No Family History Thyroid No Family History Factor 5 Leiden No Family History Blood Clots No Family History Stroke No Family History Aneurysm No Family History Blood Disease No Family History Multiple Sclerosis No Family History Alzheimer's Disease No Family History Dementia No Family History Parkinson s Disease No Family History Auto-Immune Disorder No Family History Systemic Lupus Erythematosus No Family History Schizophrenia No Family History Bipolar disorder No Family History Hyperlipidemia No Family History SOCIAL HISTORY: Social History Tobacco Use Smoking status: Never Smokeless tobacco: Never Vaping Use Vaping Use: Never used Substance Use Topics Alcohol use: No Drug use: No Prior to Admission medications as of 09/06/23 1115 Medication Sig Last Dose Taking rasagiline (AZILECT) 1 mg tab TAKE 1 TABLET BY MOUTH EVERY DAY Taking Yes pimavanserin (NUPLAZID) 34 mg Take 1 capsule by mouth daily at bedtime. Taking Yes pantoprazole DR (PROTONIX) 20 mg tablet Take 20 mg by mouth once daily. Taking Yes vitamin A/vitamin D3 (NATURAL VITAMIN D ORAL) Take 2,000 Units by mouth. Taking Yes Calcium Carbonate 650 mg calcium (1,625 mg) tablet Take 650 mg by mouth three times daily with meals. Taking Yes FLUoxetine (PROZAC) 40 mg capsule Take 40 mg by mouth once daily. Taking Yes Ibandronate 150 mg tablet Take 150 mg by mouth once every month. Taking Yes multivitamin with minerals (MULTIPLE VITAMINS 55 PLUS ORAL) once daily. Taking Yes levothyroxine (SYNTHROID) 50 mcg tablet Take 1 tablet by mouth once daily. Taking Yes atorvastatin (LIPITOR) 80 mg tablet Take 80 mg by mouth once daily. Taking Yes No medication comments found. ALLERGIES Allergen Reactions Ativan [Lorazepam] Mental Status Change Haldol [Haloperidol] Mental Status Change Reglan [Metoclopram* Unknown Amantadine Other: See Comments Constipation, dry mouth Artane Unknown Requip [Ropinirole] Other: See Comments nightmares Sinemet [Carbidopa-* Unknown COVID VACCINATION STATUS: Fully vaccinated REVIEW OF SYSTEMS: PAIN ASSESSMENT: General: No weight loss, malaise or fevers. Neuro: No history of TIA's, stroke, STUDENT UNION CONSULTANT tumor, impaired sensorium, hemiplegia, paraplegia or quadraplegia. No neurological symptoms or problems. Respiratory: No history of current cough or dyspnea, or pneumonia in the past 6 weeks. No history of respiratory/pulmonary symptoms or problems. Cardiovascular: Negative for Recent FL, Angina, Arrhythmia, CAD, Chest Pain, CHF, PVD, Valvular Heart Disease, DVT/PE+HLD GI: Negative for PUD, Nausea, Vomiting, Abdominal pain, Hepatitis, Liver disease, Ascites, Pancreatitis, Inflammatory bowel disease, IBS+GERD : No history of dysuria, frequency or incontinence,, stones or chronic kidney disease DRY ROLLER: Negative for abnormal vaginal bleeding, abnormal vaginal discharge. : Denies, No LMP recorded. Patient has had a hysterectomy. Endocrine: no oral steroids in the last 30 days +DM 2-last A1c 7.3, diet controlled, 130s, +hypothyroidism Hematology: No history of bleeding or clotting disorder. Pt is not taking anti-coagulation or platelet medications. No history of hematological symptoms or problems. Oncology: +hx of BCC-s/p excision Psych: No history of psychiatric symptoms or problems. Musculoskeletal: Negative for joint pain or swelling, back pain or muscle pain. Skin: Negative for lesions, rash and itching. Objective PHYSICAL EXAM: VITALS: BP 96/68 Pulse 81 Temp (Src) 98.1 (Temporal) Ht 5' 0 (1.52m) Wt 111 lb 14.4 oz (50.8kg) SpO2 94% BMI 21.85 kg/(m^2). General: Alert and oriented, No acute distress Skin: Normal color, no rash, no lesions. HEENT: EOM, pupils equal, round and reactive., No carotid bruits Cardiovascular: Normal S1 & S2, no rubs, murmurs or gallops. No JVD. Pulse regular. Lungs: Normal breath sounds, no wheezes or crackles. Extremities: No deformity, no edema or tenderness, no joint swelling or clubbing. Neurological: Parkinson's features, in a wheelchair. Pulses: Radial pulses normal +2. Diagnostic tests reviewed for today's visit: Lab Value Units Date High Low HB No results within date range. HCT No results within date range. WBC No results within date range. PLT No results within date range. NA 141 mmol/L 03/16/2023 145 136 K 4.1 mmol/L 03/16/2023 5.1 3.5 GLUC 150 mg/dL 03/16/2023 100 70 BUN 17 mg/dL 03/16/2023 26 7 CREAT 0.66 mg/dL 03/16/2023 0.95 0.51 PTSEC No results within date range. INR No results within date range. APTT No results within date range. ALT 19 U/L 03/16/2023 61 13 AST 25 U/L 03/16/2023 34 8 TBILI 0.9 mg/dL 03/16/2023 1.0 0.2 TSH 1.501 mIU/L 03/16/2023 3.740 0.358 Lab Value Units Date High Low HCGQT No results within date range. UHCG No results within date range. HCG, BODY* No results within date range. Lab Value Units Date High Low ABORHD No results within date range. ABSCREEN No results within date range. Hemoglobin A1C (%) Date Value 03/16/2023 7.3 11/11/2022 6.7 07/13/2022 6.4 03/10/2022 6.6 12/18/2021 6.3 03/06/2020 6.1 02/18/2019 6.1 Labs pending Assessment/Plan Hypercholesterolemia -stable on rx Parkinson's disease (HCC) -s/p DBS, scheduled for surgery -on Nuplazid and Azilect Gastroesophageal reflux disease -stable on PPI Hypothyroidism (acquired) -stable on rx Diabetes mellitus (HCC) -diet controlled -last A1c 7.3 -blood sugars at home in the 130s -labs pending METS: Take care of self; that is eating, dressing, bathing, using the toilet (2.75 METs) Patient denies any chest pain or undue shortness of breath with the above physical activity. Activity limited by parkinson's ANESTHESIA FINDINGS: Intubation History: No history of difficult intubation Significant Anesthesia Considerations: with her first operation it took a while for the anesthesia to wear off and she had to stay in the hospital, second operation she was given less anesthetic and had no problems Airway Exam: General: Normal appearance Mallampati Score is CLASS III ULBT: Class I - Lower incisors can bite the upper lip above the nilo line Neck: Normal appearance and function, Distance from hyoid to mentum during neck extension is at least 3 finger breaths Mouth: Normal tongue size and Mouth opening greater than 2 finger breaths Dentition: chipped teeth Airway History: No abnormal airway history 08/30/2023 Sleep Apnea Probability Snores loudly: No Tired, fatigued or sleepy in daytime: Yes Stops breathing or choking/gasping during sleep: No High blood pressure: No Sleep Apnea Probability Score: 28 (Sleep study not recommended) Sleep Apnea Probability Score 08/30/2023 01/13/2021 Sleep Apnea Screen V2 28 (Sleep study not recommended) 37.61 (Sleep study not recommended) PLAN This patient is optimally prepared for surgery pending LABS and EKG. CONSULTS: Patient does not require consults for optimization at this time. The Following Tests/Procedures Have Been Initiated: Orders Placed This Encounter HGB A1C Standing Status: Future Standing Expiration Date: 12/05/2023 CBC, BMP, and EKG per surgical service. Planned Anesthetic: Per anesthesia choice Instructions Given to Patient: Instructions located in the after visit summary. Patient given verbal and written preop instructions and voices comprehension and compliance. SIGNATURE: Lety Grove PA-C PATIENT NAME: Tamar Prado DATE: September 06, 2023 TIME: 11:13 AM documented in this encounter [facility] 09-05-2023 Miscellaneous Notes September 05, 2023 PID: [id number] Tamar Prado [address] [place] [address] Dear Ms. Prado, We are pleased to inform you that the results of your recent breast imaging exam on 09/05/2023 are normal. Early detection of cancer is very important. We also understand recommendations regarding breast cancer screening are controversial. Please discuss with your primary care provider which strategy is best for you and whether a mammogram is right for you. Your imaging studies and report will be kept on file at [facility] as part of your permanent medical record and are available for your continuing care. Thank you for allowing us to help in meeting your health care needs. Sincerely, Dr. Velazquez Interpreting Radiologist [facility] (Normal over 40) documented in this encounter [facility] 08-18-2023 History of Presen t illness Narrative Patient has been enrolled in a new $10,000 agata for Dx: Neurocognitive Disease with Psychosis through [employer] 07/31/23 to 07/30/24. Jacey Jim CPhT Maintenance Specialist [facility] Specialty Pharmacy Office: [facility] Specialty Refill Assessment Medication(s): Nuplazid Next 08/22 Patient's current medication list and adherence status to current therapy were reviewed by Specialty Pharmacy clinical pharmacist to identify any new drug interactions or non-compliance to therapy. Therapy continues to be appropriate for disease, patient response, and medical condition. Verification of therapeutic benefit and effectiveness with current therapy was completed. Adverse events, barriers in adherence, and side effects were assessed and addressed if applicable. Will proceed with refill with no changes in therapy - patient progressing towards achieving therapeutic goals based on medication-specific laboratory parameters, disease state markers and outcomes. Yuly Walters, PharmD, BCPS, CSP, MSCS Clinical Pharmacist [facility] Specialty Pharmacy P: ; F: Pool: P [facility] 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 Patient confirmed: Yes Med/dose confirmed: Yes Supplies needed: No supplies needed Missed doses: No Estimated days supply on hand: 10 Next cycle/dose due: 08/18/23 Copay amount: 0 Payment confirmed: Yes Delivery method: FedEx Signature required: Waived on patient request Delivery address: [address] [place] [address] Delivery date: 08/22/23 Questions or concerns for the pharmacist?: No [facility] Pharm[facility] Visit Assessment - Neurology: Assessment to use: Refill Vaccination Assessment: Date of influenza vaccination reminder: 07/19/2023 Date of most recent vaccination assessment: 07/19/2023 Refill Assessment: Assessment of injection issues or necrosis at injection sites: N/A Screening for infection: Yes Adverse reactions and mitigation: Yes Drug specific assessments, as appropriate: Yes Yolanda Williamson CPhT [facility] documented in this encounter [facility] 08-14-2023 Miscellaneous Notes Spoke with pt's , he agreed to set up pre-ops for 09/06/23 and surgery 09/19/23. He understands she cannot take blood thinners, aspirin, NSAIDs, vitamins, or herbals within a week of surgery. Gregory Crook PA-C documented in this encounter [facility] 07-14-2023 History of Presen t illness Narrative [facility] Specialty Refill Assessment Medication(s): Nuplazid Patient's current medication list and adherence status to current therapy were reviewed by Specialty Pharmacy clinical pharmacist to identify any new drug interactions or non-compliance to therapy. Therapy continues to be appropriate for disease, patient response, and medical condition. Verification of therapeutic benefit and effectiveness with current therapy was completed. Adverse events, barriers in adherence, and side effects were assessed and addressed if applicable. Will proceed with refill with no changes in therapy - patient progressing towards achieving therapeutic goals based on medication-specific laboratory parameters, disease state markers and outcomes. 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 Patient confirmed: Yes Med/dose confirmed: Yes Supplies needed: No supplies needed Missed doses: Yes Count of missed doses: 1 Reason for missed doses: pt forgot Estimated days supply on hand: 14 Next cycle/dose due: 07/14/23 Copay amount: 0 Signature required: Waived on patient request Delivery address: [id number] [place] [address]; [place], [place] Delivery date: 07/21/23 Questions or concerns for the pharmacist?: No [facility] Specialty Pharm[facility] Visit Assessment - Neurology: Assessment to use: Refill Vaccination Assessment: Date of influenza vaccination reminder: 08/31/2022 Date of most recent vaccination assessment: 08/31/2022 Shandra Ambrose documented in this encounter [facility] 06-09-2023 History of Presen t illness Narrative [facility] Specialty Refill Assessment Medication(s): Nuplazid Patient's current medication list and adherence status to current therapy were reviewed by Specialty Pharmacy clinical pharmacist to identify any new drug interactions or non-compliance to therapy. Therapy continues to be appropriate for disease, patient response, and medical condition. Verification of therapeutic benefit and effectiveness with current therapy was completed. Adverse events, barriers in adherence, and side effects were assessed and addressed if applicable. Will proceed with refill with no changes in therapy - patient progressing towards achieving therapeutic goals based on medication-specific laboratory parameters, disease state markers and outcomes. 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 Patient confirmed: Yes Med/dose confirmed: Yes Supplies needed: No supplies needed Missed doses: No Estimated days supply on hand: 15 Next cycle/dose due: 06/09/23 Copay amount: 0 Payment confirmed: Yes Delivery method: FedEx Signature required: Waived on patient request Delivery address: [id number] [place] [address]; [place], [place] Delivery date: 06/16/23 Questions or concerns for the pharmacist?: No [facility] Specialty Pharm[facility] Visit Assessment - Neurology: Assessment to use: Refill Vaccination Assessment: Date of influenza vaccination reminder: 08/31/2022 Date of most recent vaccination assessment: 08/31/2022 Shandra Ambrose (Clew) documented in this encounter [facility] 05-12-2023 Miscellaneous Notes Patient is in need of a new prescription as follows: Requested Prescriptions Pending Prescriptions Disp Refills pimavanserin (NUPLAZID) 34 mg 30 capsule 5 Sig: Take 1 capsule by mouth daily at bedtime. Last office visit 04-28-23 Please review and advise. 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 Prado for follow-up today. As you know she is a 77 year old right-handed female with a history of PD since . Bilateral STN DBS Jones placed 03/2021 We had a visit using: [employer] I have communicated my name and active licensure. The patient's identity and physical location were verified at the time of this visit. Either the patient or their legal community relations representative has been informed of the risks and benefits of -- and alternatives to -- treatment through a remote evaluation and consents to proceed with the evaluation remotely. Subjective During her previous visit the following plan was made: Previous plan-11/14/2022 Visit: New settings on DBS for left hand tremor. Range for right hand Increase Nuplazid to 34 mg to help with returning hallucinations. Interval History She gets frustrated with too much help from Anders, however he is worried about her falls. Her tremor is well controlled. She deals with incontinence. Nuplazid is working very well for her hallucinations. She is very happy with the hallucinations. Her short term memory is 'terrible'. She has had two falls, once when doing laundry and once in the bathroom. Movement Disorders Medications Schedule - as of the start of the visit: Medications AM PM azilect 1 mg 1 nuplazid 34 mg 1 ALLERGIES Allergen Reactions Ativan [Lorazepam] Mental Status Change Haldol [Haloperidol] Mental Status Change Reglan [Metoclopram* Unknown Amantadine Other: See Comments Constipation, dry mouth Artane Unknown Requip [Ropinirole] Other: See Comments nightmares Sinemet [Carbidopa-* Unknown Current Outpatient Medications Medication Sig pimavanserin (NUPLAZID) 34 mg Take 1 capsule by mouth daily at bedtime. pimavanserin (NUPLAZID) 10 mg Take 1 tablet by mouth daily at bedtime. pantoprazole DR (PROTONIX) 20 mg tablet Take 20 mg by mouth once daily. vitamin A/vitamin D3 (NATURAL VITAMIN D ORAL) Take 2,000 Units by mouth. Calcium Carbonate 650 mg calcium (1,625 mg) tablet Take 650 mg by mouth three times daily with meals. rasagiline (AZILECT) 1 mg tab TAKE 1 TABLET BY MOUTH EVERY DAY FLUoxetine (PROZAC) 40 mg capsule Take 40 mg by mouth once daily. Ibandronate 150 mg tablet Take 150 mg by mouth once every month. multivitamin with minerals (MULTIPLE VITAMINS 55 PLUS ORAL) once daily. levothyroxine (SYNTHROID) 50 mcg tablet Take 1 tablet by mouth once daily. atorvastatin (LIPITOR) 80 mg tablet Take 80 mg by mouth once daily. No current facility-administered medications for this visit. Questionnaires: In addition, the following areas that may be affected by abnormal involuntary movements were evaluated: Daily activities Difficulties with eating: Difficulties in dressing: Difficulties with hygiene activities: Difficulties with handwriting: Difficulties with doing hobbies and other activities: Difficulties turning in bed: Difficulties getting out of bed, car or chair: Tremors/Gait/Balance Shaking or tremors: Walking and balance problems: Number of falls in the Last Month: once Gait freezing: Autonomic/Pain Lightheadeness on standing: Yes (mild) Urinary problems: Yes (mild) Constipation problems: Yes (slight) Pain and other sensations: Yes (mild) Speech/Swallowing Speech problems: Drooling: Chewing and swallowing problems: Sleep/Fatigue Sleep problems: Yes (slight) Daytime sleepiness: Yes (mild) Fatigue: Yes (moderate) Mood/Behavior Depression: PHQ-9 Score: 9 usually representing mild (5-9) depression. Anxiety: YUE-7 Total Score: 7 usually representing mild (5-9) anxiety. Finally, the following table shows the patient's overall global physical and mental health using the PROMIS scale: PROMIS-10 Flowsheet Row Distance Health from 04/28/2023 in [facility] Distance [facility] from 11/14/2022 in [facility] Global Physical Health T Score 32.4 34.9 Global Mental Health T Score 31.3 41.1 0-10 Standard Pain Scale 4 4 *PROMIS-10 scoring scale: mean = 50, over 50 is above average, under 50 is below average Objective She is accompanied by her spouse. General: Awake, alert, interactive, no acute distress, good nutritional status, normal development, well-kept Assessment and Plan: Assessment Ms. Prado is a right-handed 77 year old female with Parkinson's disease s/p Jones Bilateral STN DBS in 2020. She has done well since the last time we spoke, only having two falls due to tripping or slipping. She is impulsive and forgets she is supposed to wait for Anders to help her. Sometimes she forgets she needs her walker. Overal, Anders states she is holding her own. No more hallucinations after starting Nuplazid. 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 We were then able to check impedances which were normal, and increase range for at home if needed. No other changes at this time. The following are the current problems noted and addressed during this visit: No diagnosis found. Plan 04/28/2023 Visit: Continue with increased range at home if needed No other changes today. Follow up in 6 months for battery check. Patient's perception of importance for healthcare provider to let them know of research trials for which they may be eligible? Not very important Interested in clinical research? Not currently Updated Movement Disorder Medication Schedule: Medications AM PM azilect 1 mg 1 nuplazid 34 mg 1 Thank you for allowing me to be part of the clinical care of this patient! I look forward to continued participation in the patient s care with you. Please do not hesitate to call with any questions. Sincerely, Jeannie Carter APRN.VIKTOR documented in this encounter [facility] 04-28-2023 Procedure note Images from the original note were not included. Virtual DBS programmin mins Left STN implanted on 02/18/2021 Right STN implanted on 03/07/2021 Battery implanted on 03/16/2021 Right chest Jones Infinity Battery 2.80v System impedances were checked and are within normal ranges. INITIAL SETTINGS: Left STN DBS: 2B - C+ 3.45 (2.0-3.45) mA 60 uS 140 Hz Therapeutic Impedance: 900 ohms Right STN DBS 10- C+ 2.4 (1.0-2.4) mA 60 uS 130 Hz Therapeutic Impedance: 1025 ohms FINAL SETTINGS: Left STN DBS: 2B - C+ 3.40 (2.0-3.65) mA 60 uS 140 Hz Therapeutic Impedance: 77322 ohms Right STN DBS 10-11- C+ 2.5(2.0-3.0) mA 60 uS 180 Hz Therapeutic Impedance: 1025 ohms Todays Programming: LSTN: Provided range to work with at home. RSTN: No changes today Monopolar Review Summary (details of Monopolar review are scanned in below): documented in this encounter [facility] 03-08-2023 History of Presen t illness Narrative [facility] Refill Assessment Medication(s): nuplazid Patient's current medication list and adherence status to current therapy were reviewed by Specialty Pharmacy clinical pharmacist to identify any new drug interactions or non-compliance to therapy. Therapy continues to be appropriate for disease, patient response, and medical condition. Verification of therapeutic benefit and effectiveness with current therapy was completed. Adverse events, barriers in adherence, and side effects were assessed and addressed if applicable. Will proceed with refill with no changes in therapy - patient progressing towards achieving therapeutic goals based on medication-specific laboratory parameters, disease state markers and outcomes. 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 Patient confirmed: Yes Med/dose confirmed: Yes Supplies needed: No supplies needed Missed doses: No Estimated days supply on hand: 5 Next cycle/dose due: 03/08/23 Copay amount: 0 Payment confirmed: Yes Delivery method: FedEx Signature required: No Delivery address: [id number]; [place], [place] Delivery date: 03/10/23 Questions or concerns for the pharmacist?: No (pt's notes that pt still has a few hallucinations (her babies are in the room) but it is only happening every 3-4 weeks or so, otherwise medication is working great & he feels like 'he has his back') [facility] Visit Assessment - Neurology: Assessment to use: Refill Vaccination Assessment: Date of influenza vaccination reminder: 08/31/2022 Date of most recent vaccination assessment: 08/31/2022 Shandra Ambrose (Clew) documented in this encounter [facility] 02-07-2023 History of Presen t illness Narrative [facility] Refill Assessment Medication(s): Nuplazid Patient's current medication list and adherence status to current therapy were reviewed by Specialty Pharmacy clinical pharmacist to identify any new drug interactions or non-compliance to therapy. Therapy continues to be appropriate for disease, patient response, and medical condition. Verification of therapeutic benefit and effectiveness with current therapy was completed. Adverse events, barriers in adherence, and side effects were assessed and addressed if applicable. Will proceed with refill with no changes in therapy - patient progressing towards achieving therapeutic goals based on medication-specific laboratory parameters, disease state markers and outcomes. 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 Patient confirmed: Yes Med/dose confirmed: Yes Supplies needed: No supplies needed Estimated days supply on hand: 11 Next cycle/dose due: 02/07/23 Copay amount: 0 Delivery method: FedEx Signature required: No Delivery address: [id number], [facility] [address] Delivery date: 02/13/23 Questions or concerns for the pharmacist?: No Wolf Ortiz CPhT [facility] Infectious Disease [facility] Visit Assessment - Neurology: Assessment to use: Refill Vaccination Assessment: Date of influenza vaccination reminder: 08/31/2022 Date of most recent vaccination assessment: 08/31/2022 documented in this encounter [facility] 12-09-2022 History of Presen t illness Narrative [facility] Ref[facility] Assessment Medication(s): nuplazid 34mg Patient's current medication list and adherence status to current therapy were reviewed by Specialty Pharmacy clinical pharmacist to identify any new drug interactions or non-compliance to therapy. Therapy continues to be appropriate for disease, patient response, and medical condition. Verification of therapeutic benefit and effectiveness with current therapy was completed. Adverse events, barriers in adherence, and side effects were assessed and addressed if applicable. Will proceed with refill with no changes in therapy - patient progressing towards achieving therapeutic goals based on medication-specific laboratory parameters, disease state markers and outcomes. 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 Patient confirmed: Yes Med/dose confirmed: Yes Supplies needed: No supplies needed Missed doses: No Estimated days supply on hand: 8 Next cycle/dose due: 12/10/22 Copay amount: 0 Payment confirmed: Yes Delivery method: FedEx Signature required: No Delivery address: [address] [place] [address]; [place], [place] Delivery date: 12/13/22 Questions or concerns for the pharmacist?: No [facility] Visit Assessment - Neurology: Assessment to use: Refill Vaccination Assessment: Date of influenza vaccination reminder: 08/31/2022 Date of most recent vaccination assessment: 08/31/2022 Shandra Ambrose (Clew) documented in this encounter [facility] 12-01-2022 Miscellaneous Notes Summary: Research Patient referred for [phone] PDGENE research study by Dr. Gary Argueta. Spoke to patient's and they declined. documented in this encounter [facility] 11-14-2022 History of Presen t illness Narrative [facility] received prescription(s) for Nuplazid 10mg (dose change) from Jeannie Carter APRN.CNP. Benefits investigation was conducted, indicating that a new prior authorization is not required at this time per patient's plan with [employer] Part D. Prescriptions will now be processed through [facility] for determination of next steps. Shandra Ambrose (Applications Analyst) documented in this encounter [facility] 11-14-2022 Procedure note Images from the original note were not included. Virtual DBS programming: Left STN implanted on 02/18/2021 Right STN implanted on 03/07/2021 Battery implanted on 03/16/2021 Right chest Jones Infinity Battery 2.89v System impedances were checked and are within normal ranges. INITIAL SETTINGS: Left STN DBS: 2B - C+ 3.45 (2.0-3.45) mA 60 uS 140 Hz Therapeutic Impedance: 900 ohms Right STN DBS 10- C+ 2.4 (1.0-2.4) mA 60 uS 130 Hz Therapeutic Impedance: 1025 ohms FINAL SETTINGS: Left STN DBS: 2B - C+ 3.40 (2.0-3.65) mA 60 uS 140 Hz Therapeutic Impedance: 11331 ohms Right STN DBS 10-11- C+ 2.5(2.0-3.0) mA 60 uS 180 Hz Therapeutic Impedance: 1025 ohms Todays Programming: LSTN: Provided range to work with at home. RSTN: No changes today Monopolar Review Summary (details of Monopolar review are scanned in below): documented in this encounter [facility] 11-14-2022 History of Presen t illness Narrative [facility] - FOLLOW UP EVALUATION - VIRTUAL VISIT Den Alexander MD [address] [place] [address] [place] [address] Dear Den Alexander MD: I had the pleasure of seeing Ms. Prado for follow-up today. As you know she is a 77 year old right-handed female with a history of PD since . Bilateral STN DBS Jones placed 03/2021 We had a visit using: [employer] I received consent from the patient to perform the visit using this platform. Subjective During her previous visit the following plan was made: Previous plan-08/16/2022 Visit: Will try to get coverage for Nuplazid 10 mg (low dose to start due to sensitivity to medications) Continue Azilect Small increase for right hand tremor breakthrough Interested in clinical research? Not currently Interval History She has gotten the cast off her left arm. They increased as high as they can go and the tremor is still mildly present. Hallucinations have been worse again, she has trouble at night and sometimes in the afternoon. Movement Disorders Medications Schedule - as of the start of the visit: Medications AM PM azilect 1 mg 1 Nuplazid 10 mg 1 ALLERGIES Allergen Reactions Ativan [Lorazepam] Mental Status Change Haldol [Haloperidol] Mental Status Change Reglan [Metoclopram* Unknown Amantadine Other: See Comments Constipation, dry mouth Artane Unknown Requip [Ropinirole] Other: See Comments nightmares Sinemet [Carbidopa-* Unknown Current Outpatient Medications Medication Sig pimavanserin (NUPLAZID) 34 mg Take 1 capsule by mouth daily at bedtime. pimavanserin (NUPLAZID) 10 mg Take 1 tablet by mouth daily at bedtime. pantoprazole DR (PROTONIX) 20 mg tablet Take 20 mg by mouth once daily. vitamin A/vitamin D3 (NATURAL VITAMIN D ORAL) Take 2,000 Units by mouth. Calcium Carbonate 650 mg calcium (1,625 mg) tablet Take 650 mg by mouth three times daily with meals. rasagiline (AZILECT) 1 mg tab TAKE 1 TABLET BY MOUTH EVERY DAY FLUoxetine (PROZAC) 40 mg capsule Take 40 mg by mouth once daily. Ibandronate 150 mg tablet Take 150 mg by mouth once every month. multivitamin with minerals (MULTIPLE VITAMINS 55 PLUS ORAL) once daily. levothyroxine (SYNTHROID) 50 mcg tablet Take 1 tablet by mouth once daily. atorvastatin (LIPITOR) 80 mg tablet Take 80 mg by mouth once daily. No current facility-administered medications for this visit. Questionnaires: In addition, the following areas that may be affected by abnormal involuntary movements were evaluated: Daily activities Difficulties with eating: Yes (slight) Difficulties in dressing: Yes (moderate) Difficulties with hygiene activities: Yes (mild) Difficulties with handwriting: Yes (moderate) Difficulties with doing hobbies and other activities: Yes (severe) Difficulties turning in bed: Yes (slight) Difficulties getting out of bed, car or chair: Yes (severe) Tremors/Gait/Balance Shaking or tremors: Yes (slight) Walking and balance problems: Yes (severe) Number of falls in the Last Month: none Gait freezin (none) Autonomic/Pain Lightheadeness on standing: Yes (mild) Urinary problems: Yes (mild) Constipation problems: 0 (none) Pain and other sensations: Yes (slight) Speech/Swallowing Speech problems: Yes (mild) Droolin (none) Chewing and swallowing problems: Yes (moderate) Sleep/Fatigue Sleep problems: Yes (mild) Daytime sleepiness: Yes (mild) Fatigue: Yes (mild) Mood/Behavior Depression: PHQ-9 Score: 7 usually representing mild (5-9) depression. Anxiety: YUE-7 Total Score: 10 usually representing moderate (10-14) anxiety. Finally, the following table shows the patient's overall global physical and mental health using the PROMIS scale: PROMIS-10 Flowsheet Row Distance Health from 11/14/2022 in [facility] Distance [facility] from 08/16/2022 in Neurology Global Physical Health T Score 34.9 29.6 Global Mental Health T Score 41.1 31.3 0-10 Standard Pain Scale 4 4 *PROMIS-10 scoring scale: mean = 50, over 50 is above average, under 50 is below average Objective She is accompanied by her spouse. General: Awake, alert, interactive, no acute distress, good nutritional status, normal development, well-kept Assessment and Plan: Assessment Ms. Prado is a right-handed 77 year old female with Parkinson's disease s/p Jones Bilateral STN DBS in 2020. Since getting her cast off her left hand, they have noticed slightly more tremor. Anders increased her settings as high as they could go and some nights she still has trouble falling asleep due to tremor. I was able to increase settings for left hand today and she still has room for her right hand if needed. She also has been having more hallucinations lately, and I checked Nuplazid dosing and she is only on 10 mg. We will increase to 34 mg since she responded well initially to the low dose. They will follow up in the spring or summer. The following are the current problems noted and addressed during this visit: Parkinson's disease (hcc) Plan 11/14/2022 Visit: New settings on DBS for left hand tremor. Range for right hand Increase Nuplazid to 34 mg to help with returning hallucinations. Updated Movement Disorder Medication Schedule: Medications AM PM azilect 1 mg 1 nuplazid 34 mg 1 Level of service : 71987 (20-29 min). Time spent 25 min on the day of service, which included preparing to see the patient, [id number] patient care, completing clinical documentation, obtaining and/or reviewing separately obtained history, performing a medically appropriate examination, counseling and educating the patient/family/caregiver, and ordering medications, tests, or procedures. DBS time: 25 mins Thank you for allowing me to be part of the clinical care of this patient! I look forward to continued participation in the patient s care with you. Please do not hesitate to call with any questions. Sincerely, Jeannie Carter APRN.VIKTOR documented in this encounter [facility] 11-11-2022 Miscellaneous Notes He's all set for Monday at 9AM. Question regarding the zoon - does he login through [facility] like a normal visit? That's what he was going to do. I don't know how logging in through zoom works. He said you can respond through message. Can you call anders and see if any of my virtual slots work for them? He will need her .net programmer charged and with them during the appointment. If he logs onto zoom, I can walk them through turning on the .net programmer. Thanks! documented in this encounter [facility] 11-03-2022 Miscellaneous Notes Request for Medical Records from [employer] faxed to [facility] (copy available in scanned docs). documented in this encounter [facility] 09-23-2022 Miscellaneous Notes Requested Prescriptions Pending Prescriptions Disp Refills pimavanserin (NUPLAZID) 10 mg 30 tablet 5 Sig: Take 1 tablet by mouth daily at bedtime. Patient/spouse would like to continue to fill Nuplazid through [facility] instead of [facility]. Thanks Please review and advise. Jonathan Juan RPh documented in this encounter [facility] 09-23-2022 History of Presen t illness Narrative [facility] Refill Assessment Medication(s): nuplazid Patient's current medication list and adherence status to current therapy were reviewed by Specialty Pharmacy clinical pharmacist to identify any new drug interactions or non-compliance to therapy. Therapy continues to be appropriate for disease, patient response, and medical condition. Verification of therapeutic benefit and effectiveness with current therapy was completed. Adverse events, barriers in adherence, and side effects were assessed and addressed if applicable. Will proceed with refill with no changes in therapy - patient progressing towards achieving therapeutic goals based on medication-specific laboratory parameters, disease state markers and outcomes. 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 Patient confirmed: Yes Med/dose confirmed: Yes Supplies needed: No supplies needed Missed doses: No Estimated days supply on hand: 8 Next cycle/dose due: 09/23/22 Copay amount: 0 Payment confirmed: Yes Delivery method: FedEx Signature required: No Delivery address: [address] [place] [address]; [place], [place] Delivery date: 09/28/22 Questions or concerns for the pharmacist?: No [facility] Visit Assessment - Neurology: Assessment to use: Refill Vaccination Assessment: Date of influenza vaccination reminder: 08/31/2022 Date of most recent vaccination assessment: 08/31/2022 Shandra Ambrose (Clew) documented in this encounter [facility] 09-01-2022 Miscellaneous Notes 90-day script required for insurance. Script pending documented in this encounter [facility] 08-17-2022 History of Presen t illness Narrative [facility] received prescription(s) for Nuplazid from Jeannie Carter APRN.CNP. Benefits investigation was conducted, indicating that a prior authorization is required by patient's medicare part d insurance plan with [employer]. Encounter will be updated once prior authorization has been submitted by [facility]. Shandra Ambrose [facility] [id number] [place] [address] [email or web address] [phone] documented in this encounter [facility] 08-16-2022 Procedure note Images from the original note were not included. Virtual DBS programming: Left STN implanted on 02/18/2021 Right STN implanted on 03/07/2021 Battery implanted on 03/16/2021 Right chest Jones Infinity Battery 2.91v System impedances were checked and are within normal ranges. INITIAL SETTINGS: Left STN DBS: 2B - C+ 3.30 (2.0-3.45) mA 60 uS 140 Hz Therapeutic Impedance: 86817 ohms Right STN DBS 10- C+ 2.0 (1.0-2.4) mA 60 uS 130 Hz Therapeutic Impedance: 1025 ohms FINAL SETTINGS: Left STN DBS: 2B - C+ 3.40 (2.0-3.55) mA 60 uS 140 Hz Therapeutic Impedance: 68538 ohms Right STN DBS 10- C+ 2.0 (1.0-2.4) mA 60 uS 130 Hz Therapeutic Impedance: 1025 ohms Todays Programming: LSTN: Provided range to work with at home. RSTN: No changes today Monopolar Review Summary (details of Monopolar review are scanned in below): documented in this encounter [facility] 08-16-2022 History of Presen t illness Narrative [facility] - FOLLOW UP EVALUATION Den Alexander MD [facility] [place] [id number] I had the pleasure of seeing Ms. Prado for follow up today. She is a 77 year old right-handed female with a history of PD since . Bilateral STN DBS Jones placed 03/2021 She is seen with her . Subjective Previous Plan-05/06/2022 Visit: Rivastigmine patch 4.6 mg/24 hrs Continue close monitoring of walking Follow up in six months Interval History: She is having increased hallucinations. Happens most of the day. This is an increase from previous. Minor falls since the last one at [facility]. Parkinson's Medication Schedule - as of the start of the visit: Medications AM azilect 1 mg 1 Questionnaires In addition, the following areas that may be affected by abnormal involuntary movements were evaluated: Daily activities Difficulties with eating: Yes (slight) Difficulties in dressing: Yes (severe) Difficulties with hygiene activities: Yes (severe) Difficulties with handwriting: Yes (moderate) Difficulties with doing hobbies and other activities: Yes (moderate) Difficulties turning in bed: Yes (slight) Difficulties getting out of bed, car or chair: Yes (severe) Tremors/Gait/Balance Shaking or tremors: Yes (slight) Walking and balance problems: Yes (severe) Number of falls in the Last Month: Gait freezin (none) Autonomic/Pain Lightheadeness on standing: Yes (severe) Urinary problems: Yes (mild) Constipation problems: Yes (mild) Pain and other sensations: Yes (mild) Speech/Swallowing Speech problems: Yes (moderate) Droolin (none) Chewing and swallowing problems: Yes (slight) Sleep/Fatigue Sleep problems: Yes (mild) Daytime sleepiness: Yes (mild) Fatigue: Yes (moderate) Mood/Behavior Depression: PHQ-9 Score: 17 usually representing moderately severe (15-19) depression. Anxiety: YUE-7 Total Score: 12 usually representing moderate (10-14) anxiety. Finally, the following table shows the patient's overall global physical and mental health using the PROMIS scale: PROMIS-10 Flowsheet Row Distance Health from 08/16/2022 in Neurology Distance Health from 03/05/2022 in Neurology Global Physical Health T Score 29.6 32.4 Global Mental Health T Score 31.3 31.3 0-10 Standard Pain Scale 4 4 *PROMIS-10 scoring scale: mean = 50, over 50 is above average, under 50 is below average In addition, the following Parkinson Lifestyle-associated features were evaluated: Conditions Prior to Dx: Depression: No Anxiety: No Melanoma: No Constipation: No Yelling: No Head Trauma: No Habits/exposures Prior to Dx Smoking: Caffeinated coffee (1-cup+): Caffeinated soda/tea (2 cups+): Alcohol (1 bottle/shot/glass+): Exercise (3x/wk+): Ibuprofen use (1x/wk+): 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 vitamin A/vitamin D3 (NATURAL VITAMIN D ORAL) Take 2,000 Units by mouth. Calcium Carbonate 650 mg calcium (1,625 mg) tablet Take 650 mg by mouth three times daily with meals. rasagiline (AZILECT) 1 mg tab TAKE 1 TABLET BY MOUTH EVERY DAY FLUoxetine (PROZAC) 40 mg capsule Take 40 mg by mouth once daily. Ibandronate 150 mg tablet Take 150 mg by mouth once every month. multivitamin with minerals (MULTIPLE VITAMINS 55 PLUS ORAL) once daily. levothyroxine (SYNTHROID) 50 mcg tablet Take 1 tablet by mouth once daily. atorvastatin (LIPITOR) 80 mg tablet Take 80 mg by mouth once daily. pimavanserin 10 mg Take 1 tablet by mouth daily at bedtime. rivastigmine (EXELON) 4.6 mg/24 hour patch Apply 1 Patch as directed once daily. (Patient not taking: Reported on 08/15/2022) No current facility-administered medications for this visit. Objective Vital Signs: There were no vitals taken for this visit. Orthostatic Vitals: None for this encounter No LMP recorded. Patient has had a hysterectomy. There is no height or weight on file to calculate BMI. General Physical Examination: She is accompanied by her spouse. General: Awake, alert, interactive, no acute distress, good nutritional status, normal development, well-kept No tremor on exam today, unable to test other symptoms due to video quality. No dyskinesias. Assessment and Plan: Assessment Ms. Prado is a right-handed 77 year old year old female with Parkinson's disease status post Jones DBS. She continues to struggle with mobility, hallucinations, and mild breakthrough tremor. They are willing to try Nuplazid at a low dose to see how she tolerates this due to hallucinations being much more frequent. We will see if they can get insurance coverage from this, if not hopefully they will qualify for one of the Parkinson's medications grams. I made a small increase to DBS to help with breakthrough tremor. Her system remains intact, even after a bad fall that exposed her wires. This has since healed with no issues. They will follow-up in 6 months or sooner if needed. The following are the current problems noted and addressed during this visit: Parkinson's disease (hcc) Plan 08/16/2022 Visit: Will try to get coverage for Nuplazid 10 mg (low dose to start due to sensitivity to medications) Continue Azilect Small increase for right hand tremor breakthrough Interested in clinical research? Not currently Updated Parkinson's Medication Schedule: Medications AM azilect 1 mg 1 Medical Decision Making: Problems: Moderate: 1+ chronic illnesses with change Data: Assessment requiring an independent historian(s) Risk: Moderate: Drug management Medical Decision Making Level: 4 - Moderate DBS time 15 minutes Thank you for allowing me to be part of the clinical care of this patient! I look forward to continued participation in the patient s care with you. Please do not hesitate to call with any questions. Sincerely, Jeannie Carter APRN.VIKTOR documented in this encounter [facility] 06-15-2022 Miscellaneous Notes Spoke with patient's , advised him we had received his Zingaya message. Cautioned him that if hardware was exposed, there is a significant chance that it may have been infected. He reports that it was cleaned out and sutured at local ED. He is scheduled to meet with her PCP tomorrow for suture removal. He reports the wound looks as good as can be expected and there are no current signs of infections. Reviewed concerning signs of infection in great detail and belabored importance of contacting office if there is any sign of infection. He would like to avoid coming to [place] if at all possible d/t patient's mentation. He will acutely monitor the wound and notify us immediately if there is any concerns. Tex Owen RN documented in this encounter [facility] 06-07-2022 Miscellaneous Notes Spoke with Dr. Kim at [facility], he reports that Tamar experienced fall with a laceration on her right parietal scalp. He reports that at least 1cm of the DBS hardware is completely exposed. He states they have irrigated the wound and will start her on ATB. I advised that quite often if the hardware becomes exposed it is likely that it will become infected. Advised that patient should be transferred to [facility] ED for evaluation by Neurosurgery. He verbalized understanding. Transfer number provided. Tex Owen RN documented in this encounter [facility] 05-13-2022 Instructions Jeannie Carter APRN.VIKTOR - 05/13/2022 1:52 PM EDT 1. I am ordering rivastigmine 4.6 mg/24 hrs which is a patch that you will place on your skin once daily. This helps with slowing the progression of memory loss over time. It can help improve confusion as well to a small degree. Please let me know if there are any side effects to this, the most common being localized skin reaction and lightheadedness. 2. Continue to use an assistive device and have someone help Tamar when walking to prevent falls. Her impaired judgement and balance are what are most dangerous to her. documented in this encounter [facility] 05-06-2022 History of Presen t illness Narrative [facility] - FOLLOW UP EVALUATION Den Alexander [address] [place] [address] Den Alexander MD [address] [place] [address] I had the pleasure of seeing Ms. Prado for follow up today. She is a 76 year old right-handed female with a history of PD since . Bilateral STN DBS Jones placed 03/2021 She is seen with her . We had a visit using: Sendio I received consent from the patient to perform the visit using this platform. Subjective Previous Plan-05/06/2022 Visit: Start rivastigmine 4.6 mg/24 hours Interval History: She continues to fall frequently due to impulsive decisions. She had an episode of hallucinating upon walking up and her mother and sister were in the room with an . She thought it was so real she was looking around the room for all of them. Parkinson's Medication Schedule - as of the start of the visit: AM azilect 1 mg 1 In addition, the following Parkinson-associated features were evaluated: Daily activities Difficulties with eating: Yes (slight) Difficulties in dressing: Yes (severe) Difficulties with hygiene activities: Yes (moderate) Difficulties with handwriting: Yes (mild) Difficulties with doing hobbies and other activities: Yes (moderate) Difficulties turning in bed: Yes (slight) Difficulties getting out of bed, car or chair: Yes (moderate) Tremors/Gait/Balance Shaking or tremors: Yes (slight) Walking and balance problems: Yes (severe): Number of falls in the Last Month: Four times Gait freezin (none) Autonomic/Pain Lightheadeness on standing: Yes (mild) Urinary problems: 0 (none) Constipation problems: Yes (mild) Pain and other sensations: 0 (none) Speech/Swallowing Speech problems: Yes (moderate): Droolin (none) Chewing and swallowing problems: Yes (moderate): Sleep/Fatigue Problems sleeping at night: Yes (mild) Daytime sleepiness: Yes (mild) Fatigue: Yes (moderate) REM sleep behavior disorder: yes Restless Legs Syndrome: no Mood/Behavior/Cognition Cognitive impairment: yes No Data Recorded Hallucinations and delusions: no Apathy: no Depression: PQH-9 = 15 usually representing moderately severe (15-19) depression. Anxiety: YUE-7 = 10 usually representing moderate (10-14) anxiety. Finally, the following table shows the patient's overall global physical and mental health using the PROMIS scale relative to the previous visit: PROMIS-10 Distance Health from 03/05/2022 in Neurology Office Visit from 09/04/2021 in Neurology Global Physical Health T Score 32.4 44.9 Global Mental Health T Score 31.3 38.8 0-10 Standard Pain Scale 4 5 *PROMIS-10 scoring scale: mean = 50, over 50 is above average, under 50 is below average ALLERGIES Allergen Reactions Amantadine Other: See Comments Constipation, dry mouth Artane Unknown Requip [Ropinirole] Other: See Comments nightmares Sinemet [Carbidopa-* Unknown Current Outpatient Medications Medication Sig rivastigmine (EXELON) 4.6 mg/24 hour patch Apply 1 Patch as directed once daily. rasagiline (AZILECT) 1 mg tab Take 1 tablet by mouth once daily. FLUoxetine (PROZAC) 20 mg capsule Take 20 mg by mouth once daily. Ibandronate 150 mg tablet Take 150 mg by mouth once every month. multivitamin with minerals (MULTIPLE VITAMINS 55 PLUS ORAL) once daily. levothyroxine (SYNTHROID) 50 mcg tablet Take 1 tablet by mouth once daily. atorvastatin (LIPITOR) 80 mg tablet Take 80 mg by mouth once daily. No current facility-administered medications for this visit. Objective Vital Signs: There were no vitals taken for this visit. General Physical Examination: She is accompanied by her spouse. General: Awake, alert, interactive, no acute distress, good nutritional status, normal development, well-kept Movement Disorders Cognitive and Motor Biomeasures: Processing Speed Test Total Number Correct: ; Z Score: Visual Memory Test Raw Score: ; Z Score: Manual Dexterity Test (max = 180 secs) Left Hand Time: ; Right Hand Time: Walking Speed Test (25 foot walk): *Z score interpretation: higher than -1.5 is within normal; -1.5 to -2.0 represents mild impairment; lower than -2.0 represents significant impairment Assessment and Plan: Assessment Ms. Prado is a right-handed 76 year old female with Parkinson's disease with Jones B/L STN DBS placed in 2019. Tamar continues to struggle with impulsivity and falls related to this. Anders has tried to get help in the home but they have not been satisfied with the options and prefer to try and work on the issue without outside assistance. However, they continue to struggle with Tamar forgetting her limitations. We discussed possible medications to help with this and decided to start one today. We will try rivastigmine, however I discussed they may not notice a huge benefit, but it will help to forestall progression of memory loss in the [facility]. She did have a possible hallucination/lucid dream that continued into her waking hours that was bothersome to her, so we discussed treatment for hallucinations, but she does adamantly deny any other experiences with hallucinations. She wishes to hold off any medications for psychosis at this time. They are appreciative for the emotional support of the difficulty at this time, but they do not want to move forward with any other in home help and will continue with their current plan for now. I went over the importance of Tamar having 'supervision' when walking and they voiced understanding. They will follow up in 6 months. The following are the current problems noted and addressed during this visit: Parkinson's disease (hcc) (primary encounter diagnosis) Memory loss Plan 05/06/2022 Visit: Rivastigmine patch 4.6 mg/24 hrs Continue close monitoring of walking Follow up in six months Updated Parkinson's Medication Schedule: AM azilect 1 mg 1 Medical Decision Making: Problems: Moderate: 1+ chronic illnesses with change Data: Assessment requiring an independent historian(s) Risk: Moderate: Drug management Medical Decision Making Level: 4 - Moderate Thank you for allowing me to be part of the clinical care of this patient! I look forward to continued participation in the patient s care with you. Please do not hesitate to call with any questions. Sincerely, Jeannie Carter APRN.VIKTOR documented in this encounter [facility] 03-05-2022 Procedure note Images from the original note were not included. DBS programming: Left STN implanted on 02/18/2021 Right STN implanted on 03/07/2021 Battery implanted on 03/16/2021 Right chest Jones Infinity Battery 2.93v System impedances were checked and are within normal ranges. INITIAL SETTINGS: Left STN DBS: 2B - C+ 2.55 mA 60 uS 140 Hz Therapeutic Impedance: 1475 ohms Right STN DBS 10- C+ 1.6 mA 60 uS 130 Hz Therapeutic Impedance: 1025 ohms FINAL SETTINGS: Left STN DBS: 2B - C+ 3.15 (2.0-3.45) mA 60 uS 140 Hz Therapeutic Impedance: 09281 ohms Right STN DBS 10- C+ 1.90 (1.0-2.4) mA 60 uS 130 Hz Therapeutic Impedance: 1025 ohms Todays Programming: LSTN: Provided range to work with at home. RSTN: No changes today Monopolar Review Summary (details of Monopolar review are scanned in below): documented in this encounter [facility] 03-05-2022 History of Presen t illness Narrative [facility] - FOLLOW UP EVALUATION Den Alexander MD [facility] [place] [address] I had the pleasure of seeing Ms. Prado for follow up today. She is a 76 year old right-handed female with a history of PD since . Bilateral STN DBS Jones placed 03/2021 She is seen with her . We had a visit using: Sendio I received consent from the patient to perform the visit using this platform. Subjective Previous Plan-11/13/2021 Visit: New DBS settings with Range Discuss with PCP about switching Prozac to Lexapro Post op Neuropsych eval-I will send note to get scheduled Follow up in 4 months Interval History She has had three falls since her last appointment. One of them she broke her hip. January 31 was when the hip fracture was. She then fell again following that. She continues to struggle with memory but they feel like they are holding steady with keeping her safe at home. Parkinson's Medication Schedule - as of the start of the visit: AM azilect 1 mg 1 In addition, the following Parkinson-associated features were evaluated: Daily activities Difficulties with eating: Yes (slight) Difficulties in dressing: Yes (mild) Difficulties with hygiene activities: Yes (mild) Difficulties with handwriting: Yes (slight) Difficulties with doing hobbies and other activities: Yes (moderate) Difficulties turning in bed: Yes (slight) Difficulties getting out of bed, car or chair: Yes (mild) Tremors/Gait/Balance Shaking or tremors: 0 (none) Walking and balance problems: Yes (moderate): Number of falls in the Last Month: TWICE Gait freezin (none) Autonomic/Pain Lightheadeness on standing: Yes (mild) Urinary problems: Yes (slight) Constipation problems: 0 (none) Pain and other sensations: 0 (none) Speech/Swallowing Speech problems: Yes (mild) Droolin (none) Chewing and swallowing problems: Yes (slight) Sleep/Fatigue Problems sleeping at night: Yes (slight) Daytime sleepiness: Yes (mild) Fatigue: Yes (moderate) REM sleep behavior disorder: yes Restless Legs Syndrome: no Mood/Behavior/Cognition Cognitive impairment: yes No Data Recorded Hallucinations and delusions: no Apathy: no Depression: PQH-9 = 14 usually representing moderate (10-14) depression. Anxiety: YUE-7 = 8 usually representing mild (5-9) anxiety. Finally, the following table shows the patient's overall global physical and mental health using the PROMIS scale relative to the previous visit: PROMIS-10 Distance Health from 03/05/2022 in Neurology Office Visit from 09/04/2021 in Neurology Global Physical Health T Score 32.4 44.9 Global Mental Health T Score 31.3 38.8 0-10 Standard Pain Scale 4 5 *PROMIS-10 scoring scale: mean = 50, over 50 is above average, under 50 is below average ALLERGIES Allergen Reactions Amantadine Other: See Comments Constipation, dry mouth Artane Unknown Requip [Ropinirole] Other: See Comments nightmares Sinemet [Carbidopa-* Unknown Current Outpatient Medications Medication Sig rasagiline (AZILECT) 1 mg tab Take 1 tablet by mouth once daily. FLUoxetine (PROZAC) 20 mg capsule Take 20 mg by mouth once daily. Ibandronate 150 mg tablet Take 150 mg by mouth once every month. multivitamin with minerals (MULTIPLE VITAMINS 55 PLUS ORAL) once daily. levothyroxine (SYNTHROID) 50 mcg tablet Take 1 tablet by mouth once daily. atorvastatin (LIPITOR) 80 mg tablet Take 80 mg by mouth once daily. No current facility-administered medications for this visit. Objective Vital Signs: There were no vitals taken for this visit. General Physical Examination: She is accompanied. General: Awake, alert, interactive, no acute distress, good nutritional status, normal development, well-kept Assessment and Plan: Assessment Ms. Prado is a right-handed 76 year old female with idiopathic Parkinson's disease. Since her last appointment she has had three falls and one of them led to a hip fracture and subsequent surgical repair. She had a difficult time recovering from anesthesia and experienced psychosis and then was in rehab after this. She is now back to baseline but with her memory impairment that she was struggling with pre-fall. She is doing pretty well 'all things considered' per her . She uses her walker to get around and as long as she does not walk without it she does well. She is doing well otherwise with safety and tremors are under good control with DBS. They will continue to check in with us virtually for her DBS as it is difficult to get her out of the home due to her poor mobility. DBS checked and provided range to increase since they were all the way up on current range. No concerns following her falls. The following are the current problems noted and addressed during this visit: Parkinson's disease (hcc) (primary encounter diagnosis) Plan 03/05/2022 Visit: Continue medication regimen and current DBS settings Follow up in 6 months or sooner if needed Continue to use walker at all times for safety and walk with assistance when needed. Updated Parkinson's Medication Schedule: AM azilect 1 mg 1 Medical Decision Making: Problems: Moderate: 1+ chronic illnesses with change Data: Assessment requiring an independent historian(s) Risk: Low: Low risk from testing/treatment Medical Decision Making Level: 3 - Low DBS time 15 mins Thank you for allowing me to be part of the clinical care of this patient! I look forward to continued participation in the patient s care with you. Please do not hesitate to call with any questions. Sincerely, Jeannie Carter APRN.VIKTOR documented in this encounter [facility] 02-10-2022 Miscellaneous Notes Anders Figueroa. My name is Patricia and I am a nurse practitioner covering Jeannie while she is out. It sounds like there is a lot to talk about and that you are hoping for some DBS programming at home as well. I see that Jeannie has an appointment available in a few weeks on February 23 at 12 PM. I went ahead and scheduled this for Tamar before someone takes that spot but if you cannot make it, please call [phone] and they can help you reschedule it as I do see that she has a few other openings shortly after. Also, it will show as an in person visit at the main campus, but I will have that changed to a virtual for you but the only way I could schedule that specific appointment was to schedule it as in person and then have it changed later. I hope this works out for you and again if it does not, please call the number above and they will be happy to help you. Take care and let us know if there is anything else you need. Patricia documented in this encounter [facility] 02-09-2022 Hospital Discharg e instructions Patient Education 02/09/2022 12:32:03 Insomnia Insomnia Insomnia is frequent trouble falling and/or staying asleep. Insomnia can be a technician terminal and repeater problem or a short term problem. Both are common. Insomnia can be a short term problem when the wakefulness is related to a certain stress or worry. technician terminal and repeater insomnia is often related to ongoing stress during waking hours and/or poor sleeping habits. Overtime, sleep deprivation itself can make the problem worse. Every little thing feels more severe because you are overtired and your ability to cope is decreased. CAUSES Stress, anxiety, and depression. Poor sleeping habits. Distractions such as TV in the bedroom. Naps close to bedtime. Engaging in emotionally charged conversations before bed. Technical reading before sleep. Alcohol and other sedatives. They may make the problem worse. They can hurt normal sleep patterns and normal dream activity. Stimulants such as caffeine for several hours prior to bedtime. Pain syndromes and shortness of breath can cause insomnia. Exercise late at night. Changing time zones may cause sleeping problems (jet lag). It is sometimes helpful to have someone observe your sleeping patterns. They should look for periods of not breathing during the night (sleep apnea). They should also look to see how long those periods last. If you live alone or observers are uncertain, you can also be observed at a sleep clinic where your sleep patterns will be professionally monitored. Sleep apnea requires a checkup and treatment. Give your caregivers your medical history. Give your caregivers observations your family has made about your sleep. SYMPTOMS Not feeling rested in the morning. Anxiety and restlessness at bedtime. Difficulty falling and staying asleep. TREATMENT Your caregiver may prescribe treatment for an underlying medical disorders. Your caregiver can give advice or help if you are using alcohol or other drugs for self-medication. Treatment of underlying problems will usually eliminate insomnia problems. Medications can be prescribed for short time use. They are generally not recommended for lengthy use. [id number] sleep medicines are not recommended for lengthy use. They can be habit forming. You can promote easier sleeping by making lifestyle changes such as: ? Using relaxation techniques that help with breathing and reduce muscle tension. ? Exercising earlier in the day. ? Changing your diet and the time of your last meal. No night time snacks. ? Establish a regular time to go to bed. Counseling can help with stressful problems and worry. Soothing music and white noise may be helpful if there are background noises you cannot remove. Stop tedious detailed work at least one hour before bedtime. HOME CARE INSTRUCTIONS Keep a diary. Inform your caregiver about your progress. This includes any medication side effects. See your caregiver regularly. Take note of: ? Times when you are asleep. ? Times when you are awake during the night. ? The quality of your sleep. ? How you feel the next day. This information will help your caregiver care for you. Get out of bed if you are still awake after 15 minutes. Read or do some quiet activity. Keep the lights down. Wait until you feel sleepy and go back to bed. Keep regular sleeping and waking hours. Avoid naps. Exercise regularly. Avoid distractions at bedtime. Distractions include watching television or engaging in any intense or detailed activity like attempting to balance the household checkbook. Develop a bedtime ritual. Keep a familiar routine of bathing, brushing your teeth, climbing into bed at the same time each night, listening to soothing music. Routines increase the success of falling to sleep faster. Use relaxation techniques. This can be using breathing and muscle tension release routines. It can also include visualizing peaceful scenes. You can also help control troubling or intruding thoughts by keeping your mind occupied with boring or repetitive thoughts like the old concept of counting sheep. You can make it more creative like imagining planting one beautiful flower after another in your backyard garden. During your day, work to eliminate stress. When this is not possible use some of the previous suggestions to help reduce the anxiety that accompanies stressful situations. MAKE SURE YOU: Understand these instructions. Will watch your condition. Will get help right away if you are not doing well or get worse. Document Released: 10/20/2001 Document Revised: 01/14/2013 Document Reviewed: 11/19/2008 ExitCare Patient Information 2015 [employer]. This information is not intended to replace advice given to you by your health care provider. Make sure you discuss any questions you have with your health care provider. 02/09/2022 12:31:52 Fall Prevention in the Home, Adult Fall Prevention in the Home, Adult Falls can cause injuries and can affect people from all age groups. There are many simple things that you can do to make your home safe and to help prevent falls. Ask for help when making these changes, if needed. What actions can I take to prevent falls? General instructions Use good lighting in all rooms. Replace any light bulbs that burn out. Turn on lights if it is dark. Use night-lights. Place frequently used items in aiwg-lc-jlyke places. Lower the shelves around your home if necessary. Set up furniture so that there are clear paths around it. Avoid moving your furniture around. Remove throw rugs and other tripping hazards from the floor. Avoid walking on wet floors. Fix any uneven floor surfaces. Add color or contrast paint or tape to grab bars and handrails in your home. Place contrasting color strips on the first and last steps of stairways. When you use a stepladder, make sure that it is completely opened and that the sides are firmly locked. Have someone hold the ladder while you are using it. Do not climb a closed stepladder. Be aware of any and all pets. What can I do in the bathroom? Keep the floor dry. Immediately clean up any water that spills onto the floor. Remove soap buildup in the tub or shower on a regular basis. Use non-skid mats or decals on the floor of the tub or shower. Attach bath mats securely with double-sided, non-slip rug tape. If you need to sit down while you are in the shower, use a plastic, non-slip stool. Install grab bars by the toilet and in the tub and shower. Do not use towel bars as grab bars. What can I do in the bedroom? Make sure that a bedside light is easy to reach. Do not use oversized bedding that drapes onto the floor. Have a firm chair that has side arms to use for getting dressed. What can I do in the kitchen? Clean up any spills right away. If you need to reach for something above you, use a sturdy step stool that has a grab bar. Keep electrical cables out of the way. Do not use floor st lucian or wax that makes floors slippery. If you must use wax, make sure that it is non-skid floor wax. What can I do in the stairways? Do not leave any items on the stairs. Make sure that you have a light switch at the top of the stairs and the bottom of the stairs. Have them installed if you do not have them. Make sure that there are handrails on both sides of the stairs. Fix handrails that are broken or loose. Make sure that handrails are as long as the stairways. Install non-slip stair treads on all stairs in your home. Avoid having throw rugs at the top or bottom of stairways, or secure the rugs with carpet tape to prevent them from moving. Choose a carpet design that does not hide the edge of steps on the stairway. Check any carpeting to make sure that it is firmly attached to the stairs. Fix any carpet that is loose or worn. What can I do on the outside of my home? Use bright outdoor lighting. Regularly repair the edges of walkways and driveways and fix any cracks. Remove high doorway thresholds. Trim any shrubbery on the main path into your home. Regularly check that handrails are securely fastened and in good repair. Both sides of any steps should have handrails. Install guardrails along the edges of any raised decks or porches. Clear walkways of debris and clutter, including tools and rocks. Have leaves, snow, and ice cleared regularly. Use sand or salt on walkways during winter months. In the garage, clean up any spills right away, including grease or oil spills. What other actions can I take? Wear closed-toe shoes that fit well and support your feet. Wear shoes that have rubber soles or low heels. Use mobility aids as needed, such as canes, walkers, scooters, and crutches. Review your medicines with your health care provider. Some medicines can cause dizziness or changes in blood pressure, which increase your risk of falling. Talk with your health care provider about other ways that you can decrease your risk of falls. This may include working with a physical therapist or guide dog trainer to improve your strength, balance, and endurance. Where to find more information Centers for Disease Control and Prevention[place]: https://www.cdc.gov National Center on Aging: https://mv0vdyl.nino.nih.gov Contact a health care provider if: You are afraid of falling at home. You feel weak, drowsy, or dizzy at home. You fall at home. Summary There are many simple things that you can do to make your home safe and to help prevent falls. Ways to make your home safe include removing tripping hazards and installing grab bars in the bathroom. Ask for help when making these changes in your home. This information is not intended to replace advice given to you by your health care provider. Make sure you discuss any questions you have with your health care provider. Document Released: 10/13/2003 Document Revised: 10/05/2018 Document Reviewed: 06/07/2018 Adhere2Care Patient Education 2020 [employer]. 02/09/2022 12:31:36 Parkinson Disease, Ozgc-ls-Xmin Parkinson Disease Parkinson disease is a long-term (chronic) condition. It gets worse over time (is progressive). Parkinson disease limits your ability: To control how your body moves. To move your body normally. This condition affects each person differently. The condition can range from mild to very bad. This condition tends to progress slowly over many years. Follow these instructions at home: Take qczw-fit-rayaarv and prescription medicines only as told by your doctor. Put grab bars and railings in your home. These help to prevent falls. Follow instructions from your doctor about what you can or cannot eat or drink. Go back to your normal activities as told by your doctor. Ask your doctor what activities are safe for you. Exercise as told by your doctor or physical therapist. Keep all follow-up visits as told by your doctor. This is important. These include any visits with a speech or occupational therapist. Think about joining a support group for people who have Parkinson disease. Contact a doctor if: Medicines do not help your symptoms. You feel off-balance. You fall at home. You need more help at home. You have: ?Trouble swallowing. ?A very hard time pooping (constipation). ?A lot of side effects from your medicines. You see or hear things that are not real (hallucinate). You feel: ?Confused. ?Anxious. ?Sad (depressed). Get help right away if: You were hurt in a fall. You cannot swallow without choking. You have chest pain. You have trouble breathing. You do not feel safe at home. This information is not intended to replace advice given to you by your health care provider. Make sure you discuss any questions you have with your health care provider. Document Released: 01/14/2013 Document Revised: 03/30/2017 Document Reviewed: 08/12/2016 Adhere2Care Interactive Patient Education 2019 [employer]. Follow Up Care 02/03/2022 15:24:52 With:DEN ALEXANDER MD, [facility] Address: [address] [place], [place] [address] [address]- When:02/16/2022 09:20:00 Comments:Follow-up as scheduled With:DIEUDONNE SPRING PA-C, Orthopedic Address: When:02/18/2022 13:15:00 Comments:This is your post-op appointment and is in the [facility] office. [facility] 02-03-2022 Evaluation + Plan note Extrac ryan from: Title:History and Physical Author:NAHID PARIKH APRN-PEOPLESOFT ADMINISTRATOR Date:02/03/22 1. Asthenia 2. S/p left hip fracture 3. Parkinsons 4. GERD (gastroesophageal reflux disease) 5. Hypertension 6. High cholesterol 7. Hypothyroid Asthenia admit to [facility]. Consult PT and OT. Status post left hip fracture with repair-continue with Tylenol for pain control. Avoid opioids. Patient states pain is well controlled at this point. Parkinson's patient has a deep brain stimulator. Continue home medications. She is having some delirium related to underlying dementia. Will add Seroquel 25 mg nightly as needed. Avoid benzodiazepines. GERD continue pantoprazole 20 mg daily Hypertension blood pressure well controlled without the use of antihypertensives. SBP goal 140 or less and avoid hypotension. High cholesterol continue home statin. Hypothyroidism continue home dose of Synthroid. DVT prophylaxis: SCDs Labs, diagnostics, and progress notes reviewed as noted in HPI Code Status: Full code Plan of care discussed with patient. All questions answered. Patient verbalizes understanding is agreeable to plan of care. This dictation was performed using voice recognition software and may include grammatical and/or spelling errors. [facility] 03-28-2022 Hospital Discharge instructions Follow Up Care 01/31/2022 14:58:38 With:Homes Meds - Patient had home medication brought in. Please send home with patient. Address:Unknown When: Unknown [facility] 03-28-2022 Evaluation + Plan noteExtracted from: Title:History and Physical Author:ZENAIDA DUMONT APRN-PEOPLESOFT ADMINISTRATOR Date:01/31/22 1. Subcapital fracture of le ft hip 2. Parkinsons 3. Osteoporosis 4. Hypertension 5. High cholesterol 6. GERD (gastroesophageal reflux disease) 7. Hypothyroid Patient is here status post fall, found to have left subcapital fracture. Will consult orthopedics. N.p.o. after midnight, IV fluids at midnight, Lovenox 40 mg subcu x1. [place] as needed for pain management. She will be on bedrest for now until ortho evaluation, PT/OT will be needed. Continue home medications for history of Parkinson's disease, hypertension, osteoporosis, hyperlipidemia, GERD, hypothyroidism. Laboratory studies are still pending at this time, vital signs are stable. RCRI is 0, discussed with Dr. Francisco J Drake, patient is medically stable to proceed with orthopedic surgery if needed. Discussed with her at the bedside. [facility] 03-18-2022 Miscellaneous Notes* Telephone Encounter - Wilbert Darvin - 01/21/2022 10:48 AM EDT Relationship to patient: Reason for call (non-seizure related) Would like cognitive test results faxed to local facility. Will have fax number available when called back. Patient of Dr. Ng [facility] NoteHNO ID: [id number] Author: Bobo Nice DO Service: ? Author Type: Physician Type: Progress Notes Filed: 03/08/2021 11:49 AM Note Text: Brief Stereotaxic Neurosurgery Neurophysiology Summary Tamar Prado MRN: Surgery Date: March 08, 2021 Surgery Performed: Right STN DBS Neurologist: Bobo Nice DO Ordering Physician: Albert Qureshi M.D., P.h.D. Diagnosis: Parkinson's Disease Procedure: The surgical field was prepared as per the neurosurgeon's note. A Burnet Iridium microelectrode was attached to the stereotactic frame and lowered through the brain with a calibrated microdrive. Neuronal activity was recorded along each tract. Single units were isolated and somatosensory responses were determined. 1 Target(s) for Deep Brain Stimulation were mapped. Functional Physiologic Mapping 1rst Hour (CPT 59738643):1 Functional Physiologic Mapping each additional hour (CPT 23340229):0 Total time spent mappin minutes Target #1: Right STN DBS Electrophysiological Mapping: The target was physiologically mapped using 1 tracts. See record in chart for specific details of each track. Briefly, thalamic activity is seen at 1.5 mm. Again is seen at 2.4 mm. Scattered thalamic units are seen at 4.3 mm. Thalamic activity is seen at 7.0 mm. Quieter activity is seen at 8.7 mm and again at 9.3 mm this is felt to correlate with the Elena. The top of the STN was found at 11.3 mm. There were no units which correlated to motor activity found within the STN. The background activity change at approximately 14.5 mm. This activity was consistent with SNR activity. It was felt to be consistent with either SNR versus ventral subthalamic nucleus. The overall activity became quieter at 15.1 mm. The STN was definitely exited at 15.5 mm. Macrostimulation was performed with the tip of the electrode at 15 mm with the referential contact beginning at 3mm above the tip. Rest tremor of the left hand was stopped at 2.0 mA. Questionable internal capsular contractions of the hand were seen at 2.5 mA. Definitive internal capsule threshold was found at 3.0 mA which produced face contractions. Intraoperative DBS programming 1rst 15 minutes (CPT 59681):1 Intraoperative DBS programming each additional 15 minutes (CPT 82670): 0 Total time spent programming DBS lead:10 minutes See record in chart for detailed programming information. Briefly, a Streemio [id number] DBS lead was placed. It was driven to a depth of 16.5mm. A distinct lesional benefit is appreciated. Contact(s) 1-, 4+ was tested. Rest tremor and rigidity benefit was seen at 0.5 mA. This was definitely noted at 1.0 mA. Significant improvement was seen at 2.0 mA. Side effect of tongue contraction was seen with a threshold of 3.0 mA. Complications: None [facility] Appointment Date:08/13/2025 10:30:00 AM Scheduled Provider:OLU PEREZ DO Location:[facility] Appointment Type: OV Future Scheduled Tests Radiology* DE Mammogram Screening Bilateral Routine w/o Mahendra 08/20/24 [facility] Evaluation note* Diagnosis Parkinson's disease (HCC)- Primary Paralysis agitans [facility] Parkinson's disease (HCC)- Primary Paralysis agitans [facility] Diagnosis Parkinson's disease (HCC)- Primary Paralysis agitans Memory loss documented in this encounter [facility] noteNo assessment information availableWTriHealth [facility] Work Phone: Evaluation note* Diagnosis Onset Date Resolution Status Fall acute Laceration of scalp acute Mechanical complication of deep brain stimulator acute Parkinson's disease acute S/P deep brain stimulator placement acute [facility] Work Phone: Evaluation note* Diagnosis Parkinson's disease (HCC) Paralysis agitans [facility] Parkinson's disease (HCC) Paralysis agitans [facility]* Diagnosis Parkinson's disease (HCC)- Primary Paralysis agitans [facility]* Diagnosis Parkinson's disease (HCC) Paralysis agitans [facility]* Diagnosis Onset Date Resolution Status Laceration of scalp acute [facility] Work Phone: evaluation note* Diagnosis Parkinson's disease (HCC)- Primary Paralysis agitans [facility]* Diagnosis Parkinson's disease (HCC) Paralysis agitans [facility] Diagnosis Parkinson's disease (HCC)- Primary Paralysis agitans [facility]* Diagnosis Parkinson's disease (HCC) Paralysis agitans [facility]* Diagnosis Parkinson's disease (HCC)- Primary Paralysis agitans [facility]* Diagnosis Parkinson's disease (HCC)- Primary Paralysis agitans [facility]* Diagnosis Parkinson's disease (HCC) Paralysis agitans [facility] Diagnosis Parkinson's disease (HCC)- Primary Paralysis agitans [facility]* Diagnosis Parkinson's disease (HCC)- Primary Paralysis agitans [facility]* Diagnosis Parkinson's disease (HCC) Paralysis agitans [facility]* Diagnosis Parkinson's disease, unspecified whether dyskinesia present, unspecified whether manifestations fluctuate- Primary Parkinson's disease, unspecified whether dyskinesia present, unspecified whether manifestations fluctuate [facility]* Diagnosis Pre-op evaluation- Primary Preoperative examination, unspecified Type 2 diabetes mellitus without complication, unspecified whether technician terminal and repeater insulin use (HCC) Parkinson's disease, unspecified whether dyskinesia present, unspecified whether manifestations fluctuate Hypercholesterolemia Pure hypercholesterolemia Gastroesophageal reflux disease without esophagitis Esophageal reflux Hypothyroidism (acquired) Unspecified hypothyroidism Parkinson's disease, unspecified whether dyskinesia present, unspecified whether manifestations fluctuate documented in this encounter [facility] note* Diagnosis Parkinson's disease, unspecified whether dyskinesia present, unspecified whether manifestations fluctuate- Primary Moderate protein-calorie malnutrition (HCC) Malnutrition of moderate degree Parkinson's disease, unspecified whether dyskinesia present, unspecified whether manifestations fluctuate documented in this encounter [facility] note* Diagnosis Parkinson's disease, unspecified whether dyskinesia present, unspecified whether manifestations fluctuate- Primary Parkinson's disease, unspecified whether dyskinesia present, unspecified whether manifestations fluctuate documented in this encounter [facility] note* Diagnosis Parkinson's disease, unspecified whether dyskinesia present, unspecified whether manifestations fluctuate- Primary documented in this encounter [facility] note* Diagnosis Parkinson's disease (HCC) Paralysis agitans documented in this encounter [facility] note* Diagnosis Parkinson's disease, unspecified whether dyskinesia present, unspecified whether manifestations fluctuate (HCC)- Primary documented in this encounter [facility] note* Diagnosis Parkinson's disease, unspecified whether dyskinesia present, unspecified whether manifestations fluctuate (HCC)- Primary documented in this encounter [facility] note* Diagnosis Postoperative pain- Primary Other acute postoperative pain S/P brain surgery- Primary Other postprocedural status Moderate protein-calorie malnutrition (HCC) Malnutrition of moderate degree Parkinson's disease (HCC) Paralysis agitans Hypercholesterolemia Pure hypercholesterolemia Hypertension Unspecified essential hypertension Gastroesophageal reflux disease Esophageal reflux Hypothyroidism (acquired) Unspecified hypothyroidism Moderate protein-calorie malnutrition (HCC) Malnutrition of moderate degree Pre-op evaluation- Primary Preoperative examination, unspecified Parkinson's disease (HCC) Paralysis agitans Essential hypertension Unspecified essential hypertension Gastroesophageal reflux disease without esophagitis Esophageal reflux Hypothyroidism (acquired) Unspecified hypothyroidism Osteoporosis, unspecified osteoporosis type, unspecified pathological fracture presence Pre-op evaluation- Primary Preoperative examination, unspecified Type 2 diabetes mellitus without complication, unspecified whether technician terminal and repeater insulin use (HCC) Parkinson's disease, unspecified whether dyskinesia present, unspecified whether manifestations fluctuate (HCC) Hypercholesterolemia Pure hypercholesterolemia Gastroesophageal reflux disease without esophagitis Esophageal reflux Hypothyroidism (acquired) Unspecified hypothyroidism Parkinson's disease, unspecified whether dyskinesia present, unspecified whether manifestations fluctuate (HCC)- Primary documented in this encounter [facility] note* Diagnosis Postoperative pain- Primary Other acute postoperative pain S/P brain surgery- Primary Other postprocedural status Moderate protein-calorie malnutrition (HCC) Malnutrition of moderate degree Parkinson's disease (HCC) Paralysis agitans Hypercholesterolemia Pure hypercholesterolemia Hypertension Unspecified essential hypertension Gastroesophageal reflux disease Esophageal reflux Hypothyroidism (acquired) Unspecified hypothyroidism Moderate protein-calorie malnutrition (HCC) Malnutrition of moderate degree Pre-op evaluation- Primary Preoperative examination, unspecified Parkinson's disease (HCC) Paralysis agitans Essential hypertension Unspecified essential hypertension Gastroesophageal reflux disease without esophagitis Esophageal reflux Hypothyroidism (acquired) Unspecified hypothyroidism Osteoporosis, unspecified osteoporosis type, unspecified pathological fracture presence Pre-op evaluation- Primary Preoperative examination, unspecified Type 2 diabetes mellitus without complication, unspecified whether technician terminal and repeater insulin use (HCC) Parkinson's disease, unspecified whether dyskinesia present, unspecified whether manifestations fluctuate (HCC) Hypercholesterolemia Pure hypercholesterolemia Gastroesophageal reflux disease without esophagitis Esophageal reflux Hypothyroidism (acquired) Unspecified hypothyroidism Parkinson's disease (HCC) Paralysis agitans documented in this encounter [facility] note* Diagnosis Postoperative pain- Primary Other acute postoperative pain S/P brain surgery- Primary Other postprocedural status Moderate protein-calorie malnutrition (HCC) Malnutrition of moderate degree Parkinson's disease (HCC) Paralysis agitans Hypercholesterolemia Pure hypercholesterolemia Hypertension Unspecified essential hypertension Gastroesophageal reflux disease Esophageal reflux Hypothyroidism (acquired) Unspecified hypothyroidism Moderate protein-calorie malnutrition (HCC) Malnutrition of moderate degree Pre-op evaluation- Primary Preoperative examination, unspecified Parkinson's disease (HCC) Paralysis agitans Essential hypertension Unspecified essential hypertension Gastroesophageal reflux disease without esophagitis Esophageal reflux Hypothyroidism (acquired) Unspecified hypothyroidism Osteoporosis, unspecified osteoporosis type, unspecified pathological fracture presence Pre-op evaluation- Primary Preoperative examination, unspecified Type 2 diabetes mellitus without complication, unspecified whether mcfp insulin use (HCC) Parkinson's disease, unspecified whether dyskinesia present, unspecified whether manifestations fluctuate (HCC) Hypercholesterolemia Pure hypercholesterolemia Gastroesophageal reflux disease without esophagitis Esophageal reflux Hypothyroidism (acquired) Unspecified hypothyroidism Parkinson's disease, unspecified whether dyskinesia present, unspecified whether manifestations fluctuate (HCC)- Primary documented in this encounter [facility] note* Diagnosis Postoperative pain- Primary Other acute postoperative pain S/P brain surgery- Primary Other postprocedural status Moderate protein-calorie malnutrition (HCC) Malnutrition of moderate degree Parkinson's disease (HCC) Paralysis agitans Hypercholesterolemia Pure hypercholesterolemia Hypertension Unspecified essential hypertension Gastroesophageal reflux disease Esophageal reflux Hypothyroidism (acquired) Unspecified hypothyroidism Moderate protein-calorie malnutrition (HCC) Malnutrition of moderate degree Pre-op evaluation- Primary Preoperative examination, unspecified Parkinson's disease (HCC) Paralysis agitans Essential hypertension Unspecified essential hypertension Gastroesophageal reflux disease without esophagitis Esophageal reflux Hypothyroidism (acquired) Unspecified hypothyroidism Osteoporosis, unspecified osteoporosis type, unspecified pathological fracture presence Pre-op evaluation- Primary Preoperative examination, unspecified Type 2 diabetes mellitus without complication, unspecified whether mcfp insulin use (HCC) Parkinson's disease, unspecified whether dyskinesia present, unspecified whether manifestations fluctuate (HCC) Hypercholesterolemia Pure hypercholesterolemia Gastroesophageal reflux disease without esophagitis Esophageal reflux Hypothyroidism (acquired) Unspecified hypothyroidism 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)- Primary [facility] Diagnosis Postoperative pain- Primary Other acute postoperative pain S/P brain surgery- Primary Other postprocedural status Moderate protein-calorie malnutrition (HCC) Malnutrition of moderate degree Parkinson's disease (HCC) Paralysis agitans Hypercholesterolemia Pure hypercholesterolemia Hypertension Unspecified essential hypertension Gastroesophageal reflux disease Esophageal reflux Hypothyroidism (acquired) Unspecified hypothyroidism Moderate protein-calorie malnutrition (HCC) Malnutrition of moderate degree Pre-op evaluation- Primary Preoperative examination, unspecified Parkinson's disease (HCC) Paralysis agitans Essential hypertension Unspecified essential hypertension Gastroesophageal reflux disease without esophagitis Esophageal reflux Hypothyroidism (acquired) Unspecified hypothyroidism Osteoporosis, unspecified osteoporosis type, unspecified pathological fracture presence Pre-op evaluation- Primary Preoperative examination, unspecified Type 2 diabetes mellitus without complication, unspecified whether mcfp insulin use (HCC) Parkinson's disease, unspecified whether dyskinesia present, unspecified whether manifestations fluctuate (HCC) Hypercholesterolemia Pure hypercholesterolemia Gastroesophageal reflux disease without esophagitis Esophageal reflux Hypothyroidism (acquired) Unspecified hypothyroidism 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) [facility] Diagnosis Parkinson's disease, unspecified whether dyskinesia present, unspecified whether manifestations fluctuate (HCC)- Primary documented in this encounter [facility] note* Diagnosis Postoperative pain- Primary Other acute postoperative pain S/P brain surgery- Primary Other postprocedural status Moderate protein-calorie malnutrition (HCC) Malnutrition of moderate degree Parkinson's disease (HCC) Paralysis agitans Hypercholesterolemia Pure hypercholesterolemia Hypertension Unspecified essential hypertension Gastroesophageal reflux disease Esophageal reflux Hypothyroidism (acquired) Unspecified hypothyroidism Moderate protein-calorie malnutrition (HCC) Malnutrition of moderate degree Pre-op evaluation- Primary Preoperative examination, unspecified Parkinson's disease (HCC) Paralysis agitans Essential hypertension Unspecified essential hypertension Gastroesophageal reflux disease without esophagitis Esophageal reflux Hypothyroidism (acquired) Unspecified hypothyroidism Osteoporosis, unspecified osteoporosis type, unspecified pathological fracture presence Pre-op evaluation- Primary Preoperative examination, unspecified Type 2 diabetes mellitus without complication, unspecified whether mcfp insulin use (HCC) Parkinson's disease, unspecified whether dyskinesia present, unspecified whether manifestations fluctuate (HCC) Hypercholesterolemia Pure hypercholesterolemia Gastroesophageal reflux disease without esophagitis Esophageal reflux Hypothyroidism (acquired) Unspecified hypothyroidism Parkinson's disease (HCC) Paralysis agitans [facility] Diagnosis Postoperative pain- Primary Other acute postoperative pain S/P brain surgery- Primary Other postprocedural status Moderate protein-calorie malnutrition (HCC) Malnutrition of moderate degree Parkinson's disease (HCC) Paralysis agitans Hypercholesterolemia Pure hypercholesterolemia Hypertension Unspecified essential hypertension Gastroesophageal reflux disease Esophageal reflux Hypothyroidism (acquired) Unspecified hypothyroidism Moderate protein-calorie malnutrition (HCC) Malnutrition of moderate degree Pre-op evaluation- Primary Preoperative examination, unspecified Parkinson's disease (HCC) Paralysis agitans Essential hypertension Unspecified essential hypertension Gastroesophageal reflux disease without esophagitis Esophageal reflux Hypothyroidism (acquired) Unspecified hypothyroidism Osteoporosis, unspecified osteoporosis type, unspecified pathological fracture presence Pre-op evaluation- Primary Preoperative examination, unspecified Type 2 diabetes mellitus without complication, unspecified whether mcfp insulin use (HCC) Parkinson's disease, unspecified whether dyskinesia present, unspecified whether manifestations fluctuate (HCC) Hypercholesterolemia Pure hypercholesterolemia Gastroesophageal reflux disease without esophagitis Esophageal reflux Hypothyroidism (acquired) Unspecified hypothyroidism Parkinson's disease, unspecified whether dyskinesia present, unspecified whether manifestations fluctuate (HCC)- Primary [facility] Diagnosis Postoperative pain- Primary Other acute postoperative pain S/P brain surgery- Primary Other postprocedural status Moderate protein-calorie malnutrition (HCC) Malnutrition of moderate degree Parkinson's disease (HCC) Paralysis agitans Hypercholesterolemia Pure hypercholesterolemia Hypertension Unspecified essential hypertension Gastroesophageal reflux disease Esophageal reflux Hypothyroidism (acquired) Unspecified hypothyroidism Moderate protein-calorie malnutrition (HCC) Malnutrition of moderate degree Pre-op evaluation- Primary Preoperative examination, unspecified Parkinson's disease (HCC) Paralysis agitans Essential hypertension Unspecified essential hypertension Gastroesophageal reflux disease without esophagitis Esophageal reflux Hypothyroidism (acquired) Unspecified hypothyroidism Osteoporosis, unspecified osteoporosis type, unspecified pathological fracture presence Pre-op evaluation- Primary Preoperative examination, unspecified Type 2 diabetes mellitus without complication, unspecified whether technician terminal and repeater insulin use (HCC) Parkinson's disease, unspecified whether dyskinesia present, unspecified whether manifestations fluctuate (HCC) Hypercholesterolemia Pure hypercholesterolemia Gastroesophageal reflux disease without esophagitis Esophageal reflux Hypothyroidism (acquired) Unspecified hypothyroidism Parkinson's disease, unspecified whether dyskinesia present, unspecified whether manifestations fluctuate (HCC)- Primary documented in this encounter [facility] note* Diagnosis Postoperative pain- Primary Other acute postoperative pain S/P brain surgery- Primary Other postprocedural status Moderate protein-calorie malnutrition (HCC) Malnutrition of moderate degree Parkinson's disease (HCC) Paralysis agitans Hypercholesterolemia Pure hypercholesterolemia Hypertension Unspecified essential hypertension Gastroesophageal reflux disease Esophageal reflux Hypothyroidism (acquired) Unspecified hypothyroidism Moderate protein-calorie malnutrition (HCC) Malnutrition of moderate degree Pre-op evaluation- Primary Preoperative examination, unspecified Parkinson's disease (HCC) Paralysis agitans Essential hypertension Unspecified essential hypertension Gastroesophageal reflux disease without esophagitis Esophageal reflux Hypothyroidism (acquired) Unspecified hypothyroidism Osteoporosis, unspecified osteoporosis type, unspecified pathological fracture presence Pre-op evaluation- Primary Preoperative examination, unspecified Type 2 diabetes mellitus without complication, unspecified whether mcfp insulin use (HCC) Parkinson's disease, unspecified whether dyskinesia present, unspecified whether manifestations fluctuate (HCC) Hypercholesterolemia Pure hypercholesterolemia Gastroesophageal reflux disease without esophagitis Esophageal reflux Hypothyroidism (acquired) Unspecified hypothyroidism Parkinson's disease, unspecified whether dyskinesia present, unspecified whether manifestations fluctuate (HCC)- Primary [facility]* Diagnosis Postoperative pain- Primary Other acute postoperative pain S/P brain surgery- Primary Other postprocedural status Moderate protein-calorie malnutrition (HCC) Malnutrition of moderate degree Parkinson's disease (HCC) Paralysis agitans Hypercholesterolemia Pure hypercholesterolemia Hypertension Unspecified essential hypertension Gastroesophageal reflux disease Esophageal reflux Hypothyroidism (acquired) Unspecified hypothyroidism Moderate protein-calorie malnutrition (HCC) Malnutrition of moderate degree Pre-op evaluation- Primary Preoperative examination, unspecified Parkinson's disease (HCC) Paralysis agitans Essential hypertension Unspecified essential hypertension Gastroesophageal reflux disease without esophagitis Esophageal reflux Hypothyroidism (acquired) Unspecified hypothyroidism Osteoporosis, unspecified osteoporosis type, unspecified pathological fracture presence Pre-op evaluation- Primary Preoperative examination, unspecified Type 2 diabetes mellitus without complication, unspecified whether technician terminal and repeater insulin use (HCC) Parkinson's disease, unspecified whether dyskinesia present, unspecified whether manifestations fluctuate (HCC) Hypercholesterolemia Pure hypercholesterolemia Gastroesophageal reflux disease without esophagitis Esophageal reflux Hypothyroidism (acquired) Unspecified hypothyroidism Parkinson's disease, unspecified whether dyskinesia present, unspecified whether manifestations fluctuate (HCC)- Primary Visual hallucinations Psychophysical visual disturbances documented in this encounter [facility] note* Diagnosis Postoperative pain- Primary Other acute postoperative pain S/P brain surgery- Primary Other postprocedural status Moderate protein-calorie malnutrition (HCC) Malnutrition of moderate degree Parkinson's disease (HCC) Paralysis agitans Hypercholesterolemia Pure hypercholesterolemia Hypertension Unspecified essential hypertension Gastroesophageal reflux disease Esophageal reflux Hypothyroidism (acquired) Unspecified hypothyroidism Moderate protein-calorie malnutrition (HCC) Malnutrition of moderate degree Pre-op evaluation- Primary Preoperative examination, unspecified Parkinson's disease (HCC) Paralysis agitans Essential hypertension Unspecified essential hypertension Gastroesophageal reflux disease without esophagitis Esophageal reflux Hypothyroidism (acquired) Unspecified hypothyroidism Osteoporosis, unspecified osteoporosis type, unspecified pathological fracture presence Pre-op evaluation- Primary Preoperative examination, unspecified Type 2 diabetes mellitus without complication, unspecified whether mcfp insulin use (HCC) Parkinson's disease, unspecified whether dyskinesia present, unspecified whether manifestations fluctuate (HCC) Hypercholesterolemia Pure hypercholesterolemia Gastroesophageal reflux disease without esophagitis Esophageal reflux Hypothyroidism (acquired) Unspecified hypothyroidism Parkinson's disease (HCC) Paralysis agitans documented in this encounter [facility] note* Diagnosis Postoperative pain- Primary Other acute postoperative pain S/P brain surgery- Primary Other postprocedural status Moderate protein-calorie malnutrition (HCC) Malnutrition of moderate degree Parkinson's disease (HCC) Paralysis agitans Hypercholesterolemia Pure hypercholesterolemia Hypertension Unspecified essential hypertension Gastroesophageal reflux disease Esophageal reflux Hypothyroidism (acquired) Unspecified hypothyroidism Moderate protein-calorie malnutrition (HCC) Malnutrition of moderate degree Pre-op evaluation- Primary Preoperative examination, unspecified Parkinson's disease (HCC) Paralysis agitans Essential hypertension Unspecified essential hypertension Gastroesophageal reflux disease without esophagitis Esophageal reflux Hypothyroidism (acquired) Unspecified hypothyroidism Osteoporosis, unspecified osteoporosis type, unspecified pathological fracture presence Pre-op evaluation- Primary Preoperative examination, unspecified Type 2 diabetes mellitus without complication, unspecified whether mcfp insulin use (HCC) Parkinson's disease, unspecified whether dyskinesia present, unspecified whether manifestations fluctuate (HCC) Hypercholesterolemia Pure hypercholesterolemia Gastroesophageal reflux disease without esophagitis Esophageal reflux Hypothyroidism (acquired) Unspecified hypothyroidism Parkinson's disease, unspecified whether dyskinesia present, unspecified whether manifestations fluctuate (HCC)- Primary documented in this encounter [facility] note* Diagnosis Postoperative pain- Primary Other acute postoperative pain S/P brain surgery- Primary Other postprocedural status Moderate protein-calorie malnutrition (HCC) Malnutrition of moderate degree Parkinson's disease (HCC) Paralysis agitans Hypercholesterolemia Pure hypercholesterolemia Hypertension Unspecified essential hypertension Gastroesophageal reflux disease Esophageal reflux Hypothyroidism (acquired) Unspecified hypothyroidism Moderate protein-calorie malnutrition (HCC) Malnutrition of moderate degree Pre-op evaluation- Primary Preoperative examination, unspecified Parkinson's disease (HCC) Paralysis agitans Essential hypertension Unspecified essential hypertension Gastroesophageal reflux disease without esophagitis Esophageal reflux Hypothyroidism (acquired) Unspecified hypothyroidism Osteoporosis, unspecified osteoporosis type, unspecified pathological fracture presence Pre-op evaluation- Primary Preoperative examination, unspecified Type 2 diabetes mellitus without complication, unspecified whether mcfp insulin use (HCC) Parkinson's disease, unspecified whether dyskinesia present, unspecified whether manifestations fluctuate (HCC) Hypercholesterolemia Pure hypercholesterolemia Gastroesophageal reflux disease without esophagitis Esophageal reflux Hypothyroidism (acquired) Unspecified hypothyroidism Parkinson's disease, unspecified whether dyskinesia present, unspecified whether manifestations fluctuate (HCC)- Primary documented in this encounter [facility] course Narrative No data available for this section [facility] Discharge instructions No data available for this section [facility] Progress note No data available for this section [facility] Summary Purpose Family History No Family History Records FoundNo Family History Records FoundNo Family History Records FoundNo Family History Records FoundNo Family History Records Found No data available for this section No Family History Records FoundNo Family History Records FoundNo Family History Records FoundNo Family History Records Found Advance Directives No Advanced Directives Records FoundDocuments on File Type Date Recorded Patient Skate Maker Expl anation Advance Directive(s) 03/02/2021 9:14 AM Advance Directive(s) 03/02/2021 9:21 AM Advance Directive(s) 01/22/2021 11:38 AM Advance Directive(s) 01/22/2021 11:48 AM Advance Directive(s) 01/20/2021 9:30 AM Sc anned in 01/20/2021 @9:29am under IP VALID AD Advance Directive(s) 01/20/2021 9:29 AM Advance Directive(s) 01/20/2021 3:08 PM Advance Directive(s) 12/31/2020 9:00 AM Documents on File Type Date Recorded Patient Skate Maker Expl anation Advance Directive(s) 03/02/2021 9:14 AM Advance Directive(s) 03/02/2021 9:21 AM Advance Directive(s) 01/22/2021 11:38 AM Advance Directive(s) 01/22/2021 11:48 AM Advance Directive(s) 01/20/2021 9:30 AM Sc anned in 01/20/2021 @9:29am under IP VALID AD Advance Directive(s) 01/20/2021 9:29 AM Advance Directive(s) 01/20/2021 3:08 PM Advance Directive(s) 12/31/2020 9:00 AM Advance Directive Response Recorded Date/ Time Living Will Yes May 17, 2022 11:29am Power of Clutch Rebuilder Yes May 17 11:29am Name of Medical Power of Clutch Rebuilder HORTENSIA TORRES May 17, 2022 11:29am Advance Directive Response Recorded Date/ Time Name of Medical Power of Clutch Rebuilder HORTENSIA TORRES May 17, 2022 11:29am Name of Medical Power of Clutch Rebuilder DONOVAN PRADO June 08, 2022 1:31am Living Will Yes June 08, 2022 1:31am Power of Clutch Rebuilder Yes June 08 1:31am Documents on File Type Date Recorded Patient Skate Maker Expl anation Advance Directive(s) 01/20/2021 9:29 AM Documents on File Type Date Recorded Patient Skate Maker Expl anation Advance Directive(s) 01/20/2021 9:29 AM Advance Directive Response Recorded Date/ Time Name of Medical Power of Clutch Rebuilder HORTENSIA TORRES May 17, 2022 11:29am Name of Medical Power of Clutch Rebuilder DONOVAN PRADO June 08, 2022 1:31am Name of Medical Power of Clutch Rebuilder DONOVAN PRADO- September 03, 2022 3:37pm Living Will Yes September 03 3:37pm Power of Clutch Rebuilder Yes September 03, 2022 3:37pm Advance Directive Response Recorded Date/ Time Living Will Yes September 03 2:37pm Power of Clutch Rebuilder Yes September 03, 2022 2:37pm Reason for Referral Specialty Diagnoses / Procedures Referred By Madelin t Referred To Contact Diagnoses Parkinson's disease (HCC) Procedures PROVIDER ORDERED FOLLOW UP OFFICE/OUTPATIENT [facility] 60-74 MINUTES Jeannie Carter, GENERAL MANAGER [employer]ARM[employer] ADMINISTRATOR [address] [place] [address] Referral ID Status Reason Start Date Expiration Date Visits Requested Visits Authorized [id number] Pending Review PCP Requested Referral 03/05/2022 03/05/2023 1 1 Chief Complaint and Reason for Visit Chief Complaint ALTERED LOC Chief Complaint ALTERED LOC FALL, EXPOSED DBS FALL, EXPOSED DBS Reason for Visit Fall Laceration of scalp Mechanical complication of deep brain stimulator Parkinson's disease S/P deep brain stimulator placement Chief Complaint ALTERED LOC FALL, EXPOSED DBS FALL, EXPOSED DBS FALL, EXPOSED DBS FALL, EXPOSED DBS FALL, EXPOSED DBS Reason for Visit Fall Laceration of scalp Mechanical complication of deep brain stimulator Parkinson's disease S/P deep brain stimulator placement Chief Complaint ALTERED LOC FALL, EXPOSED DBS FALL, EXPOSED DBS FALL, EXPOSED DBS FALL, EXPOSED DBS FALL, EXPOSED DBS ARM Reason for Visit Laceration of scalp Chief Complaint HEADACHES Additional Source Comments INFORMATION SOURCE (unrecogn ized section and content) DATE CREATED AUTHOR 06/16/2020 [employer] DATE CREATED AUTHOR AUTHOR'S ORGANIZ ATION 03/09/2021 [facility] DATE CREATED AUTHOR AUTHOR'S ORGANIZ ATION 03/19/2022 [facility] DATE CREATED AUTHOR AUTHOR'S ORGANIZ ATION 09/06/2023 [facility] DATE CREATED AUTHOR AUTHOR'S ORGANIZ ATION 07/11/2024 [facility] ([place]) DATE CREATED AUTHOR AUTHOR'S ORGANIZ ATION 08/20/2025 [facility] DATE CREATED AUTHOR AUTHOR'S ORGANIZ ATION 08/24/2025 [facility] DATE CREATED AUTHOR AUTHOR'S ORGANIZ ATION 09/09/2025 [facility] DATE CREATED AUTHOR AUTHOR'S ORGANIZ ATION 09/17/2025 [facility] Care Team (unrecognized sect ion and content) Record Changer Relationship Specialty Start Date End Date Den Alexander MD [address] [place] [address] PCP - General Family Practice 07/12/18 David Krueger MD [address] [place] [phone] Referring Neurology 08/26/20 Wilbert Jenkins MD [address] [place] [address] Specialty Hassock Maker Neurology 03/06/21 Record Changer Relationship Specialty Start Date End Date Den Alexander MD [address] [place] [address] PCP - General Family Practice 07/12/18 David Krueger MD [address] [place] [phone] Referring Neurology 08/26/20 Wilbert Jenkins MD [address] [place] [address] Specialty Hassock Maker Neurology 03/06/21 Record Changer Relationship Specialty Start Date End Date Den Alexander MD [address] [place] [address] PCP - General Family Practice 07/12/18 David Krueger MD [address] [place] [phone] Referring Neurology 08/26/20 Wilbert Jenkins MD [address] [place] [address] Specialty Hassock Maker Neurology 03/06/21 Record Changer Relationship Specialty Start Date End Date Den Alexander MD [address] [place] [address] PCP - General Family Practice 07/12/18 Dvaid Krueger MD [address] [place] [phone] Referring Neurology 08/26/20 Wilbert Jenkins MD [address] [place] [address] Specialty Hassock Maker Neurology 03/06/21 Record Changer Relationship Specialty Start Date End Date Den Alexander MD [address] [place] [id number] PCP - General Family Practice 07/12/18 David Krueger MD [address] [place] [phone] Referring Neurology 08/26/20 Wilbert Jenkins MD [address] [place] [address] Specialty Hassock Maker Neurology 03/06/21 Record Changer Relationship Specialty Start Date End Date Den Alexander MD [address] [place] [address] PCP - General Family Practice 07/12/18 David Krueger MD [address] [place] [phone] Referring Neurology 08/26/20 Wilbert Jenkins MD [address] [place] [address] Specialty Hassock Maker Neurology 03/06/21 Record Changer Relationship Specialty Start Date End Date Den Alexander MD [address] [place] [address] PCP - General Family Practice 07/12/18 David Krueger MD [address] [place] [phone] Referring Neurology 08/26/20 Wilbert Jenkins MD [address] [place] [address] Specialty Hassock Maker Neurology 03/06/21 Record Changer Relationship Specialty Start Date End Date Den Alexander MD [address] [place] [address] [place] [address] PCP - General Family Practice 07/12/18 David Krueger MD [address] [place] [phone] Referring Neurology 08/26/20 Wilbert Jenkins MD [address] [place] [address] Specialty Hassock Maker Neurology 03/06/21 Record Changer Relationship Specialty Start Date End Date Den Alexander MD [address] [place] [address] [place] [address] PCP - General Family Medicine 07/12/18 David Krueger MD [address] [place] [phone] Referring Neurology 08/26/20 Wilbert Jenkins MD [address] [place] [address] Specialty Hassock Maker Neurology 03/06/21 Record Changer Relationship Specialty Start Date End Date Den Alexander MD [address] [place] [address] PCP - General Family Medicine 07/12/18 David Krueger MD [address] [place] [phone] Referring Neurology 08/26/20 Wilbert Jenkins MD [address] [place] [address] Specialty Hassock Maker Neurology 03/06/21 Record Changer Relationship Specialty Start Date End Date Den Alexander MD [address] [place] [phone] PCP - General Family Medicine 07/12/18 David Krueger MD [address] [place] [phone] Referring Neurology 08/26/20 Wilbert Jenkins MD [address] [place] [address] Specialty Hassock Maker Neurology 03/06/21 Record Changer Relationship Specialty Start Date End Date Den Alexander MD [address] [place] [phone] PCP - General [facility] Medicine 07/12/18 David Krueger MD [address] [place] [phone] Referring Neurology 08/26/20 Wilbert Jenkins MD [address] [place] [address] Specialty Hassock Maker Neurology 03/06/21 Record Changer Relationship Specialty Start Date End Date Den Alexander MD [address] [place] [address] PCP - General Family Medicine 07/12/18 David Krueger MD [address] [place] [phone] Referring Neurology 08/26/20 Wilbert Jenkins MD [address] [place] [address] Specialty Hassock Maker Neurology 03/06/21 Jeannie Carter, GENERAL MANAGER FARM.PEOPLESOFT ADMINISTRATOR [address] [place] [address] Specialty Hassock Maker Neurology 08/24/22 Record Changer Relationship Specialty Start Date End Date Den Alexander MD [address] [place] [phone] PCP - General Family Medicine 07/12/18 David Krueger MD [address] [place] [phone] Referring Neurology 08/26/20 Wilbert Jenkins MD [address] [place] [address] Specialty Hassock Maker Neurology 03/06/21 Jeannie Carter, GENERAL MANAGER FARM.PEOPLESOFT ADMINISTRATOR [address] [place] [address] Specialty Hassock Maker Neurology 08/24/22 Record Changer Relationship Specialty Start Date End Date Den Alexander MD [address] [place] [address] PCP - General Family Medicine 07/12/18 David Krueger MD [address] [place] [phone] Referring Neurology 08/26/20 Wilbert Jenkins MD [address] [place] [address] Specialty Hassock Maker Neurology 03/06/21 Jeannie Carter, GENERAL MANAGER FARM.PEOPLESOFT ADMINISTRATOR [address] [place] [address] Specialty Hassock Maker Neurology 08/24/22 Record Changer Relationship Specialty Start Date End Date Den Alexander MD [address] [place] [address] PCP - General Family Medicine 07/12/18 David Krueger MD [address] [place] [phone] Referring Neurology 08/26/20 Wilbert Jenkins MD [address] [place] [address] Specialty Hassock Maker Neurology 03/06/21 Jeannie Carter, GENERAL MANAGER FARM.PEOPLESOFT ADMINISTRATOR [address] [place] [address] Specialty Hassock Maker Neurology 08/24/22 Record Changer Relationship Specialty Start Date End Date eDn Alexander MD [address] [place] [address] PCP - General Family Medicine 07/12/18 David Krueger MD [address] [place] [phone] Referring Neurology 08/26/20 Wilbert Jenkins MD [address] [place] [address] Specialty Hassock Maker Neurology 03/06/21 Jeannie Carter, GENERAL MANAGER FARM.PEOPLESOFT ADMINISTRATOR [address] [place] [address] Specialty Hassock Maker Neurology 08/24/22 Record Changer Relationship Specialty Start Date End Date Den Alexander MD [address] [place] [address] PCP - General [facility] Medicine 07/12/18 David Krueger MD [address] [place] [phone] Referring Neurology 08/26/20 Wilbert Jenkins MD [address] [place] [address] Specialty Hassock Maker Neurology 03/06/21 Jeannie Carter, GENERAL MANAGER FARM.PEOPLESOFT ADMINISTRATOR [address] [place] [address] Specialty Hassock Maker Neurology 08/24/22 Record Changer Relationship Specialty Start Date End Date Den Alexander MD [address] [place] [address] PCP - General [facility] Medicine 07/12/18 David Krueger MD [address] [place] [phone] Referring Neurology 08/26/20 Wilbert Jenkins MD [address] [place] [address] Specialty Hassock Maker Neurology 03/06/21 Jeannie Carter, GENERAL MANAGER FARM.PEOPLESOFT ADMINISTRATOR [address] [place] [address] Specialty Hassock Maker Neurology 08/24/22 Record Changer Relationship Specialty Start Date End Date Den Alexander MD [address] [place] [address] PCP - General Family Medicine 07/12/18 David Krueger MD [address] [place] [phone] Referring Neurology 08/26/20 Wilbert Jenkins MD [address] [place] [address] Specialty Hassock Maker Neurology 03/06/21 Jeannie Carter, GENERAL MANAGER FARM.PEOPLESOFT ADMINISTRATOR [address] [place] [address] Specialty Hassock Maker Neurology 08/24/22 Record Changer Relationship Specialty Start Date End Date Den Alexander MD [address] [place] [address] PCP - General Family Medicine 07/12/18 David Krueger MD [address] [place] [phone] Referring Neurology 08/26/20 Wilbert Jenkins MD [address] [place] [address] Specialty Hassock Maker Neurology 03/06/21 Jeannie Carter, GENERAL MANAGER FARM.PEOPLESOFT ADMINISTRATOR [address] [place] [address] Specialty Hassock Maker Neurology 08/24/22 Record Changer Relationship Specialty Start Date End Date Den Alxeander MD [address] [place] [address] PCP - General Family Medicine 07/12/18 David Krueger MD [address] [place] [phone] Referring Neurology 08/26/20 Wilbert Jenkins MD [address] [place] [address] Specialty Hassock Maker Neurology 03/06/21 Jeannie Carter, GENERAL MANAGER FARM.PEOPLESOFT ADMINISTRATOR [address] [place] [address] Specialty Hassock Maker Neurology 08/24/22 Zina Bryant, GENERAL MANAGER FARM.PEOPLESOFT ADMINISTRATOR [address] [place] [address] Specialty Hassock Maker Neurology 11/21/22 Record Changer Relationship Specialty Start Date End Date Den Alexander MD [address] [place] [address] PCP - General Family Medicine 07/12/18 David Krueger MD [address] [place] [phone] Referring Neurology 08/26/20 Wilbert Jenkins MD [address] [place] [address] Specialty Hassock Maker Neurology 03/06/21 Jeannie Carter, GENERAL MANAGER FARM.PEOPLESOFT ADMINISTRATOR [address] [place] [address] Specialty Hassock Maker Neurology 08/24/22 Zina Bryant GENERAL MANAGER FARM.PEOPLESOFT ADMINISTRATOR [address] [place] [address] Specialty Hassock Maker Neurology 11/21/22 Record Changer Relationship Specialty Start Date End Date Den Alexander MD [address] [place] [address] PCP - General Family Medicine 07/12/18 David Krueger MD [address] [place] [address] Referring Neurology 08/26/20 Wilbert Jenkins MD [address] [place] [address] Specialty Hassock Maker Neurology 03/06/21 Jeannie Carter, GENERAL MANAGER FARM.PEOPLESOFT ADMINISTRATOR [address] [place] [address] Specialty Hassock Maker Neurology 08/24/22 Zina Bryant APRN.PEOPLESOFT ADMINISTRATOR [address] [place] [address] Specialty Hassock Maker Neurology 11/21/22 Record Changer Relationship Specialty Start Date End Date Den Alexander MD [facility] [place] [address] PCP - General Family Medicine 07/12/18 David Krueger MD [address] [place] [phone] Referring Neurology 08/26/20 Wilbert Jenkins MD [address] [place] [address] Specialty Hassock Maker Neurology 03/06/21 Jeannie Carter, GENERAL MANAGER FARM.PEOPLESOFT ADMINISTRATOR [address] [place] [address] Specialty Hassock Maker Neurology 08/24/22 Zina Bryant APRN.PEOPLESOFT ADMINISTRATOR [address] [place] [address] Specialty Hassock Maker Neurology 11/21/22 Record Changer Relationship Specialty Start Date End Date Den Alexander MD [facility] [place] [address] PCP - General Family Medicine 07/12/18 David Krueger MD [address] [place] [phone] Referring Neurology 08/26/20 Wilbert Jenkins MD [address] [place] [address] Specialty Hassock Maker Neurology 03/06/21 Jeannie Carter, GENERAL MANAGER FARM.PEOPLESOFT ADMINISTRATOR [address] [place] [address] Specialty Hassock Maker Neurology 08/24/22 Zina Bryant APRN.PEOPLESOFT ADMINISTRATOR [address] [place] [address] Specialty Hassock Maker Neurology 11/21/22 Record Changer Relationship Specialty Start Date End Date Den Alexander MD [address] [place] [address] [place] [address] PCP - General Family Medicine 07/12/18 David Krueger MD [address] [place] [phone] Referring Neurology 08/26/20 Wilbert Jenkins MD [address] [place] [address] Specialty Hassock Maker Neurology 03/06/21 Jeannie Carter, GENERAL MANAGER FARM.PEOPLESOFT ADMINISTRATOR [address] [place] [address] Specialty Hassock Maker Neurology 08/24/22 Zina Bryant APRN.PEOPLESOFT ADMINISTRATOR [address] [place] [address] Specialty Hassock Maker Neurology 11/21/22 Record Changer Relationship Specialty Start Date End Date Den Alexander MD [address] [place] [address] [place] [address] PCP - General Family Medicine 07/12/18 David Krueger MD [address] [place] [phone] Referring Neurology 08/26/20 Wilbert Jenkins MD [address] [place] [address] Specialty Hassock Maker Neurology 03/06/21 Jeannie Carter APRN.PEOPLESOFT ADMINISTRATOR [address] [place] [address] Specialty Hassock Maker Neurology 08/24/22 Zina Bryant APRN.PEOPLESOFT ADMINISTRATOR [address] [place] [address] Specialty Hassock Maker Neurology 11/21/22 Record Changer Relationship Specialty Start Date End Date Den Alexander MD [address] [place], [place] [address]vania [place] [address] PCP - General Family Medicine 07/12/18 David Krueger MD [address] [place] [phone] Referring Neurology 08/26/20 Wilbert Jenkins MD [address] [place], [place] [address] Specialty Hassock Maker Neurology 03/06/21 Jeannie Carter, GENERAL MANAGER FARM.PEOPLESOFT ADMINISTRATOR [address] [place] [address] Specialty Hassock Maker Neurology 08/24/22 Zina Bryant GENERAL MANAGER FARM.PEOPLESOFT ADMINISTRATOR [address] [place] [address] Specialty Hassock Maker Neurology 11/21/22 Record Changer Relationship Specialty Start Date End Date Den Alexander MD [address] [place] [address] PCP - General Family Medicine 07/12/18 David Krueger MD [address] [place] [phone] Referring Neurology 08/26/20 Wilbert Jenkins MD [address] [place] [address] Specialty Hassock Maker Neurology 03/06/21 Jeannie Carter, GENERAL MANAGER FARM.PEOPLESOFT ADMINISTRATOR [address] [place] [address] Specialty Hassock Maker Neurology 08/24/22 Zina Bryant GENERAL MANAGER FARM.PEOPLESOFT ADMINISTRATOR [address] [place] [address] Specialty Hassock Maker Neurology 11/21/22 Record Changer Relationship Specialty Start Date End Date Den Alexander MD [address] [place] [address] PCP - General Family Medicine 07/12/18 David Krueger MD [address] [place] [phone] Referring Neurology 08/26/20 Wilbert Jenkins MD [address] [place] [address] Specialty Hassock Maker Neurology 03/06/21 Jeannie Carter, GENERAL MANAGER FARM.PEOPLESOFT ADMINISTRATOR [address] [place], [place] [address] Specialty Hassock Maker Neurology 08/24/22 Zina Bryant APRN.PEOPLESOFT ADMINISTRATOR [address] [place], [place] [address] Specialty Hassock Maker Neurology 11/21/22 Record Changer Relationship Specialty Start Date End Date Olu Perez DO [address] [place] [address] PCP - General Family Medicine 08/29/23 David Krueger MD [address] [place] [phone] Referring Neurology 08/26/20 Wilbert Jenkins MD [address] [place] [address] Specialty Hassock Maker Neurology 03/06/21 Jeannie Carter GENERAL MANAGER FARM.PEOPLESOFT ADMINISTRATOR [address] [place] [address] Specialty Hassock Maker Neurology 08/24/22 Zina Bryant APRN.PEOPLESOFT ADMINISTRATOR [address] [place] [address] Specialty Hassock Maker Neurology 11/21/22 Record Changer Relationship Specialty Start Date End Date Olu Perez DO [address] [place] [address] PCP - General Family Medicine 08/29/23 David Krueger MD [address] [place] [phone] Referring Neurology 08/26/20 Wilbert Jenkins MD [address] [place], [place] [address]186[address] Specialty Hassock Maker Neurology 03/06/21 Jeannie Carter APRN.PEOPLESOFT ADMINISTRATOR [address] [place] [address] Specialty Hassock Maker Neurology 08/24/22 Zina Bryant APRN.PEOPLESOFT ADMINISTRATOR [address] [place], [place] 1266395 Specialty Hassock Maker Neurology 11/21/22 Record Changer Relationship Specialty Start Date End Date Olu Perez DO [facility] [place] [address] PCP - General Family Medicine 08/29/23 David Krueger MD [address] [place] [phone] Referring Neurology 08/26/20 Wilbert Jenkins MD [address] [place] [address] Specialty Hassock Maker Neurology 03/06/21 Jeannie Carter, GENERAL MANAGER FARM.PEOPLESOFT ADMINISTRATOR [address] [place] [address] Specialty Hassock Maker Neurology 08/24/22 Zina Bryant GENERAL MANAGER FARM.PEOPLESOFT ADMINISTRATOR [address] [place] [address] Specialty Hassock Maker Neurology 11/21/22 Record Changer Relationship Specialty Start Date End Date Olu Perez DO [facility] [place], [place] [address] PCP - General Family Medicine 08/29/23 David Krueger MD [address] [place] [phone] Referring Neurology 08/26/20 Wilbert Jenkins MD [address] [place] [address] Specialty Hassock Maker Neurology 03/06/21 Jeannie Carter, GENERAL MANAGER FARM.PEOPLESOFT ADMINISTRATOR [address] [place] [address] Specialty Hassock Maker Neurology 08/24/22 Zina Bryant GENERAL MANAGER FARM.PEOPLESOFT ADMINISTRATOR [address] [place] [address] Specialty Hassock Maker Neurology 11/21/22 Record Changer Relationship Specialty Start Date End Date Olu Perez DO [facility] [place], [place] 38[address] PCP - General Family Medicine 08/29/23 David Krueger MD [address] [place] [phone] Referring Neurology 08/26/20 Wilbert Jenkins MD [address] [place], [place] 4239[address] Specialty Hassock Maker Neurology 03/06/21 Jeannie Carter, GENERAL MANAGER FARM.PEOPLESOFT ADMINISTRATOR [address] [place], [place] 7020395 Specialty Hassock Maker Neurology 08/24/22 Zina Bryant APRN.PEOPLESOFT ADMINISTRATOR [address] [place] [address] Specialty Hassock Maker Neurology 11/21/22 Record Changer Relationship Specialty Start Date End Date Olu Perez DO [address] [place] [phone] PCP - General Family Medicine 08/29/23 David Krueger MD [address] [place] [phone] Referring Neurology 08/26/20 Wilbert Jenkins MD [address] [place] [address] Specialty Hassock Maker Neurology 03/06/21 Jeannie Carter GENERAL MANAGER FARM.PEOPLESOFT ADMINISTRATOR [address] [place] [address] Specialty Hassock Maker Neurology 08/24/22 Zina Bryant APRN.PEOPLESOFT ADMINISTRATOR [address] [place] [address] Specialty Hassock Maker Neurology 11/21/22 Team Status: Active Member Role Status Dates DEN ALEXANDER Primary Care Provider Active Team Status: Inactive Member Role Status Dates BENJAMIN CRENSHAW Primary Care Provider Active JENNIFER MITCHELL Attending Provider, Referring Provid er Active Record Changer Relationship Specialty Start Date End Date Olu Perez DO [address] [place] [address] PCP - General Family Medicine 08/29/23 David Krueger MD [address] [place] [phone] Referring Neurology 08/26/20 Wilbert Jenkins MD [address] [place] [address] Specialty Hassock Maker Neurology 03/06/21 Jeannie Carter, GENERAL MANAGER FARM.PEOPLESOFT ADMINISTRATOR [address] [place] [address] Specialty Hassock Maker Neurology 08/24/22 Zina Bryant, CHAYA.PEOPLESOFT ADMINISTRATOR [address] [place] [address] Specialty Hassock Maker Neurology 11/21/22 Record Changer Relationship Specialty Start Date End Date Olu Perez DO [address] [place] [address] PCP - General Family Medicine 08/29/23 David Krueger MD [address] [place] [phone] Referring Neurology 08/26/20 Wilbert Jenkins MD [address] [place] [address] Specialty Hassock Maker Neurology 03/06/21 Jeannie Carter, GENERAL MANAGER FARM.PEOPLESOFT ADMINISTRATOR [facility] [place], [place] [id number] Specialty Hassock Maker Neurology 08/24/22 Zina Bryant APRN.PEOPLESOFT ADMINISTRATOR [address] [place], [place] 24036[address] Specialty Hassock Maker Neurology 11/21/22 Norma Garza PA-C [facility] [place] [address] Specialty Hassock Maker Neurology 10/25/23 Record Changer Relationship Specialty Start Date End Date Olu Perez DO [address] [place] [address] PCP - General Family Medicine 08/29/23 David Krueger MD [address] [place] [phone] Referring Neurology 08/26/20 Wilbert Jenkins MD [address] [place] [address] Specialty Hassock Maker Neurology 03/06/21 Jeannie Carter GENERAL MANAGER FARM.PEOPLESOFT ADMINISTRATOR [address] [place] [address] Specialty Hassock Maker Neurology 08/24/22 Zina Bryant APRN.PEOPLESOFT ADMINISTRATOR [address] [place] [address] Specialty Hassock Maker Neurology 11/21/22 Norma Garza PA-C [address] [place] [address] Specialty Hassock Maker Neurology 10/25/23 Record Changer Relationship Specialty Start Date End Date Olu Perez DO [address] [place] [address] PCP - General Family Medicine 08/29/23 Dvaid Krueger MD [address] [place] [phone] Referring Neurology 08/26/20 Wilbert Jenkins MD [address] [place] [address] Specialty Hassock Maker Neurology 03/06/21 Jeannie Carter, GENERAL MANAGER FARM.PEOPLESOFT ADMINISTRATOR [address] [place], [place] 1375295 Specialty Hassock Maker Neurology 08/24/22 Zina Bryant APRN.PEOPLESOFT ADMINISTRATOR [address] [place] [address] Specialty Hassock Maker Neurology 11/21/22 Norma Garza PA-C [address] [place], [place] 244[address] Specialty Hassock Maker Neurology 10/25/23 Record Changer Relationship Specialty Start Date End Date Olu Perez DO [address] [place], [place] 348387 PCP - General Family Medicine 08/29/23 David Krueger MD [address] [place] [phone] Referring Neurology 08/26/20 Wilbert Jenkins MD [address] [place], [place] [address] Specialty Hassock Maker Neurology 03/06/21 Jeannie Carter, GENERAL MANAGER FARM.PEOPLESOFT ADMINISTRATOR [address] [place], [place] 23899[address] Specialty Hassock Maker Neurology 08/24/22 Zina Bryant APRN.PEOPLESOFT ADMINISTRATOR [address] [place], [place] 9337295 Specialty Hassock Maker Neurology 11/21/22 Norma Garza PA-C [address] [place], [place] 0435894 Specialty Hassock Maker Neurology 10/25/23 Record Changer Relationship Specialty Start Date End Date Olu Perez DO [address] [place], [place] 9285[address] PCP - General Family Medicine 08/29/23 David Krueger MD [address] [place] [phone] Referring Neurology 08/26/20 Wilbert Jenkins MD [address] [place] [address] Specialty Hassock Maker Neurology 03/06/21 Jeannie Carter, GENERAL MANAGER FARM.PEOPLESOFT ADMINISTRATOR [address] [place] [address] Specialty Hassock Maker Neurology 08/24/22 Zina Bryant, GENERAL MANAGER FARM.PEOPLESOFT ADMINISTRATOR [address] [place] [address] Specialty Hassock Maker Neurology 11/21/22 Norma Garza PA-C [address] [place] [address] Specialty Hassock Maker Neurology 10/25/23 Record Changer Relationship Specialty Start Date End Date Olu Perez DO [address] [place] [address] PCP - General Family Medicine 08/29/23 David Krueger MD [address] [place] [phone] Referring Neurology 08/26/20 Wilbert Jenkins MD [address] [place] [address] Specialty Hassock Maker Neurology 03/06/21 Jeannie Carter, GENERAL MANAGER FARM.PEOPLESOFT ADMINISTRATOR [address] [place] [address] Specialty Hassock Maker Neurology 08/24/22 Zina Bryant, GENERAL MANAGER FARM.PEOPLESOFT ADMINISTRATOR [address] [place] [address] Specialty Hassock Maker Neurology 11/21/22 Norma Garza PA-C [address] [place] [address] Specialty Hassock Maker Neurology 10/25/23 [employer], [facility] 06/14/24 Record Changer Relationship Specialty Start Date End Date Olu Perez DO [address] [place] [address] PCP - General Family Medicine 08/29/23 David Krueger MD [address] [place] [phone] Referring Neurology 08/26/20 Wilbert Jenkins MD [address] [place], [place] 8690395 Specialty Hassock Maker Neurology 03/06/21 Jeannie Carter, GENERAL MANAGER FARM.PEOPLESOFT ADMINISTRATOR [address] [place], [place] 9670495 Specialty Hassock Maker Neurology 08/24/22 Zina Bryant, GENERAL MANAGER FARM.PEOPLESOFT ADMINISTRATOR [address] [place], [place] 5294895 Specialty Hassock Maker Neurology 11/21/22 Norma Garza PA-C [address] [place] [address] Specialty Hassock Maker Neurology 10/25/23 [employer], [facility] 06/14/24 Record Changer Relationship Specialty Start Date End Date Olu Perez DO [address] [place] [address] PCP - General Family Medicine 08/29/23 David Krueger MD [address] [place] [phone] Referring Neurology 08/26/20 Wilbert Jenkins MD [address] [place] [address] Specialty Hassock Maker Neurology 03/06/21 Jeannie Carter, GENERAL MANAGER FARM.PEOPLESOFT ADMINISTRATOR [address] [place] [address] Specialty Hassock Maker Neurology 08/24/22 Zina Bryant APRN.PEOPLESOFT ADMINISTRATOR [address] [place] [address] Specialty Hassock Maker Neurology 11/21/22 Norma Garza PA-C [address] [place] [address] Specialty Hassock Maker Neurology 10/25/23 [employer], [facility] 06/14/24 Record Changer Relationship Specialty Start Date End Date Olu Perez DO [address] [place] [address] PCP - General Family Medicine 08/29/23 David Krueger MD [address] [place] [phone] Referring Neurology 08/26/20 Wilbert Jenkins MD [address] [place] [address] Specialty Hassock Maker Neurology 03/06/21 Jeannie Carter, GENERAL MANAGER FARM.PEOPLESOFT ADMINISTRATOR [address] [place] [address] Specialty Hassock Maker Neurology 08/24/22 Zina Bryant, GENERAL MANAGER FARM.PEOPLESOFT ADMINISTRATOR [address] [place] [address] Specialty Hassock Maker Neurology 11/21/22 Norma Garza PA-C [address] [place] [address] Specialty Hassock Maker Neurology 10/25/23 [employer], [facility] 06/14/24 Record Changer Relationship Specialty Start Date End Date Olu Perez DO [address] [place] [address] PCP - General Family Medicine 08/29/23 David Krueger MD [address] [place] [phone] Referring Neurology 08/26/20 Wilbert Jenkins MD [address] [place] [address] Specialty Hassock Maker Neurology 03/06/21 Jeannie Carter, GENERAL MANAGER FARM.PEOPLESOFT ADMINISTRATOR [address] [place] [address] Specialty Hassock Maker Neurology 08/24/22 Zina Bryant, GENERAL MANAGER FARM.PEOPLESOFT ADMINISTRATOR [address] [place] [address] Specialty Hassock Maker Neurology 11/21/22 Norma Garza PA-C [address] [place] [address] Specialty Hassock Maker Neurology 10/25/23 [employer], [facility] 06/14/24 Record Changer Relationship Specialty Start Date End Date Olu Perez DO [address] [place] [address] PCP - General Family Medicine 08/29/23 David Krueger MD [address] [place] [phone] Referring Neurology 08/26/20 Wilbert Jenkins MD [address] [place], [place] [id number] Specialty Hassock Maker Neurology 03/06/21 Jeannie Carter, GENERAL MANAGER FARM.PEOPLESOFT ADMINISTRATOR [address] [place], [place] [id number] Specialty Hassock Maker Neurology 08/24/22 Zina Bryant, GENERAL MANAGER FARM.PEOPLESOFT ADMINISTRATOR [address] [place], [place] [id number] Specialty Hassock Maker Neurology 11/21/22 Norma Garza PA-C [address] [place], [place] 7095694 Specialty Hassock Maker Neurology 10/25/23 [employer], [facility] 06/14/24 Record Changer Relationship Specialty Start Date End Date Olu Perez DO [address] [place], [place] 65[address]37 PCP - General Family Medicine 08/29/23 David Krueger MD [address] [place] [phone] Referring Neurology 08/26/20 Wilbert Jenkins MD [address] [place] [address] Specialty Hassock Maker Neurology 03/06/21 Jeannie Carter, GENERAL MANAGER FARM.PEOPLESOFT ADMINISTRATOR [address] [place] [address] Specialty Hassock Maker Neurology 08/24/22 Zina Bryant, GENERAL MANAGER FARM.PEOPLESOFT ADMINISTRATOR [address] [place] [address] Specialty Hassock Maker Neurology 11/21/22 Norma Garza PA-C [address] [place] [address] Specialty Hassock Maker Neurology 10/25/23 [employer], [facility] 06/14/24 Record Changer Relationship Specialty Start Date End Date Olu Perez DO [address] [place] [address] [phone] PCP - General Family Medicine 08/29/23 David Krueger MD [address] [place] [phone] Referring Neurology 08/26/20 Wilbert Jenkins MD [address] [place] [address] Specialty Hassock Maker Neurology 03/06/21 Jeannie Carter, GENERAL MANAGER FARM.PEOPLESOFT ADMINISTRATOR [address] [place] [address] Specialty Hassock Maker Neurology 08/24/22 Zina Bryant, GENERAL MANAGER FARM.PEOPLESOFT ADMINISTRATOR [address] [place] [address] Specialty Hassock Maker Neurology 11/21/22 Norma Garza PA-C [address] [place] [address] Specialty Hassock Maker Neurology 10/25/23 [employer], [facility] 06/14/24 Record Changer Relationship Specialty Start Date End Date Olu Perez DO [address] [place] [address] [id number] PCP - General Family Medicine 08/29/23 David Krueger MD [address] [place] [phone] Referring Neurology 08/26/20 Wilbert Jenkins MD [address] [place] [address] Specialty Hassock Maker Neurology 03/06/21 Jeannie Carter, GENERAL MANAGER FARM.PEOPLESOFT ADMINISTRATOR [facility] [place] [address] Specialty Hassock Maker Neurology 08/24/22 Zina Bryant, GENERAL MANAGER FARM.PEOPLESOFT ADMINISTRATOR [address] [place] [address] Specialty Hassock Maker Neurology 11/21/22 Norma Garza PA-C [address] [place] [address] Specialty Hassock Maker Neurology 10/25/23 Yamilet Steel, [facility] 06/14/24 Record Changer Relationship Specialty Start Date End Date Olu Perez DO [address] [place] [address] PCP - General Family Medicine 08/29/23 David Krueger MD [address] [place] [phone] Referring Neurology 08/26/20 Wilbert Jenkins MD [address] [place], [place] [phone] Specialty Hassock Maker Neurology 03/06/21 Jeannie Carter, GENERAL MANAGER FARM.PEOPLESOFT ADMINISTRATOR [address] [place], [place] [phone] Specialty Hassock Maker Neurology 08/24/22 Zina Bryant, GENERAL MANAGER FARM.PEOPLESOFT ADMINISTRATOR [address] [place], [place] [phone] Specialty Hassock Maker Neurology 11/21/22 Norma Garza PA-C [address] [place], [place] [phone] Specialty Hassock Maker Neurology 10/25/23 Yamilet Steel, [facility] 06/14/24 Record Changer Relationship Specialty Start Date End Date Olu Perez DO [address] [place], [place] [id number] PCP - General Family Medicine 08/29/23 David Krueger MD [address] [place] [phone] Referring Neurology 08/26/20 Wilbert Jenkins MD [address] [place] [address] Specialty Hassock Maker Neurology 03/06/21 Jeannie Carter, GENERAL MANAGER FARM.PEOPLESOFT ADMINISTRATOR [address] [place] [address] Specialty Hassock Maker Neurology 08/24/22 Zina Bryant GENERAL MANAGER FARM.PEOPLESOFT ADMINISTRATOR [address] [place] [address] Specialty Hassock Maker Neurology 11/21/22 Norma Garza PA-C [address] [place] [address] Specialty Hassock Maker Neurology 10/25/23 Yamilet Steel, [facility] 06/14/24 Source Comments (unrecognize d section and content) In the event this informatio n is protected by the Federal Confidentiality of Alcohol and Drug Abuse Patient Records regulations: The Federal rules restrict any use of the information to criminally investigate or prosecute any alcohol or drug abuse patient.[facility] CenterIn the event this information is protected by the Federal Confidentiality of Alcohol and Drug Abuse Patient Records regulations: The Federal rules restrict any use of the information to criminally investigate or prosecute any alcohol or drug abuse patient.[facility] CenterIn the event this information is protected by the Federal Confidentiality of Alcohol and Drug Abuse Patient Records regulations: The Federal rules restrict any use of the information to criminally investigate or prosecute any alcohol or drug abuse patient.[facility] CenterIn the event this information is protected by the Federal Confidentiality of Alcohol and Drug Abuse Patient Records regulations: The Federal rules restrict any use of the information to criminally investigate or prosecute any alcohol or drug abuse patient.[facility] CenterIn the event this information is protected by the Federal Confidentiality of Alcohol and Drug Abuse Patient Records regulations: The Federal rules restrict any use of the information to criminally investigate or prosecute any alcohol or drug abuse patient.[facility] CenterIn the event this information is protected by the Federal Confidentiality of Alcohol and Drug Abuse Patient Records regulations: The Federal rules restrict any use of the information to criminally investigate or prosecute any alcohol or drug abuse patient.[facility] CenterIn the event this information is protected by the Federal Confidentiality of Alcohol and Drug Abuse Patient Records regulations: The Federal rules restrict any use of the information to criminally investigate or prosecute any alcohol or drug abuse patient.[facility] CenterIn the event this information is protected by the Federal Confidentiality of Alcohol and Drug Abuse Patient Records regulations: The Federal rules restrict any use of the information to criminally investigate or prosecute any alcohol or drug abuse patient.[facility] CenterIn the event this information is protected by the Federal Confidentiality of Alcohol and Drug Abuse Patient Records regulations: The Federal rules restrict any use of the information to criminally investigate or prosecute any alcohol or drug abuse patient.[facility] CenterIn the event this information is protected by the Federal Confidentiality of Alcohol and Drug Abuse Patient Records regulations: The Federal rules restrict any use of the information to criminally investigate or prosecute any alcohol or drug abuse patient.[facility] CenterIn the event this information is protected by the Federal Confidentiality of Alcohol and Drug Abuse Patient Records regulations: The Federal rules restrict any use of the information to criminally investigate or prosecute any alcohol or drug abuse patient.[facility] CenterIn the event this information is protected by the Federal Confidentiality of Alcohol and Drug Abuse Patient Records regulations: The Federal rules restrict any use of the information to criminally investigate or prosecute any alcohol or drug abuse patient.[facility] CenterIn the event this information is protected by the Federal Confidentiality of Alcohol and Drug Abuse Patient Records regulations: The Federal rules restrict any use of the information to criminally investigate or prosecute any alcohol or drug abuse patient.[facility] CenterIn the event this information is protected by the Federal Confidentiality of Alcohol and Drug Abuse Patient Records regulations: The Federal rules restrict any use of the information to criminally investigate or prosecute any alcohol or drug abuse patient.[facility] CenterIn the event this information is protected by the Federal Confidentiality of Alcohol and Drug Abuse Patient Records regulations: The Federal rules restrict any use of the information to criminally investigate or prosecute any alcohol or drug abuse patient.[facility] CenterIn the event this information is protected by the Federal Confidentiality of Alcohol and Drug Abuse Patient Records regulations: The Federal rules restrict any use of the information to criminally investigate or prosecute any alcohol or drug abuse patient.[facility] CenterIn the event this information is protected by the Federal Confidentiality of Alcohol and Drug Abuse Patient Records regulations: The Federal rules restrict any use of the information to criminally investigate or prosecute any alcohol or drug abuse patient.[facility] CenterIn the event this information is protected by the Federal Confidentiality of Alcohol and Drug Abuse Patient Records regulations: The Federal rules restrict any use of the information to criminally investigate or prosecute any alcohol or drug abuse patient.[facility] CenterIn the event this information is protected by the Federal Confidentiality of Alcohol and Drug Abuse Patient Records regulations: The Federal rules restrict any use of the information to criminally investigate or prosecute any alcohol or drug abuse patient.[facility] CenterIn the event this information is protected by the Federal Confidentiality of Alcohol and Drug Abuse Patient Records regulations: The Federal rules restrict any use of the information to criminally investigate or prosecute any alcohol or drug abuse patient.[facility] CenterIn the event this information is protected by the Federal Confidentiality of Alcohol and Drug Abuse Patient Records regulations: The Federal rules restrict any use of the information to criminally investigate or prosecute any alcohol or drug abuse patient.[facility] CenterIn the event this information is protected by the Federal Confidentiality of Alcohol and Drug Abuse Patient Records regulations: The Federal rules restrict any use of the information to criminally investigate or prosecute any alcohol or drug abuse patient.[facility] CenterIn the event this information is protected by the Federal Confidentiality of Alcohol and Drug Abuse Patient Records regulations: The Federal rules restrict any use of the information to criminally investigate or prosecute any alcohol or drug abuse patient.[facility] CenterIn the event this information is protected by the Federal Confidentiality of Alcohol and Drug Abuse Patient Records regulations: The Federal rules restrict any use of the information to criminally investigate or prosecute any alcohol or drug abuse patient.[facility] CenterIn the event this information is protected by the Federal Confidentiality of Alcohol and Drug Abuse Patient Records regulations: The Federal rules restrict any use of the information to criminally investigate or prosecute any alcohol or drug abuse patient.[facility] CenterIn the event this information is protected by the Federal Confidentiality of Alcohol and Drug Abuse Patient Records regulations: The Federal rules restrict any use of the information to criminally investigate or prosecute any alcohol or drug abuse patient.[facility] CenterIn the event this information is protected by the Federal Confidentiality of Alcohol and Drug Abuse Patient Records regulations: The Federal rules restrict any use of the information to criminally investigate or prosecute any alcohol or drug abuse patient.[facility] CenterIn the event this information is protected by the Federal Confidentiality of Alcohol and Drug Abuse Patient Records regulations: The Federal rules restrict any use of the information to criminally investigate or prosecute any alcohol or drug abuse patient.[facility] CenterIn the event this information is protected by the Federal Confidentiality of Alcohol and Drug Abuse Patient Records regulations: The Federal rules restrict any use of the information to criminally investigate or prosecute any alcohol or drug abuse patient.[facility] CenterIn the event this information is protected by the Federal Confidentiality of Alcohol and Drug Abuse Patient Records regulations: The Federal rules restrict any use of the information to criminally investigate or prosecute any alcohol or drug abuse patient.[facility] CenterIn the event this information is protected by the Federal Confidentiality of Alcohol and Drug Abuse Patient Records regulations: The Federal rules restrict any use of the information to criminally investigate or prosecute any alcohol or drug abuse patient.[facility] CenterIn the event this information is protected by the Federal Confidentiality of Alcohol and Drug Abuse Patient Records regulations: The Federal rules restrict any use of the information to criminally investigate or prosecute any alcohol or drug abuse patient.[facility] CenterIn the event this information is protected by the Federal Confidentiality of Alcohol and Drug Abuse Patient Records regulations: The Federal rules restrict any use of the information to criminally investigate or prosecute any alcohol or drug abuse patient.[facility] CenterIn the event this information is protected by the Federal Confidentiality of Alcohol and Drug Abuse Patient Records regulations: The Federal rules restrict any use of the information to criminally investigate or prosecute any alcohol or drug abuse patient.[facility] CenterIn the event this information is protected by the Federal Confidentiality of Alcohol and Drug Abuse Patient Records regulations: The Federal rules restrict any use of the information to criminally investigate or prosecute any alcohol or drug abuse patient.[facility] CenterIn the event this information is protected by the Federal Confidentiality of Alcohol and Drug Abuse Patient Records regulations: The Federal rules restrict any use of the information to criminally investigate or prosecute any alcohol or drug abuse patient.[facility] CenterIn the event this information is protected by the Federal Confidentiality of Alcohol and Drug Abuse Patient Records regulations: The Federal rules restrict any use of the information to criminally investigate or prosecute any alcohol or drug abuse patient.[facility] CenterIn the event this information is protected by the Federal Confidentiality of Alcohol and Drug Abuse Patient Records regulations: The Federal rules restrict any use of the information to criminally investigate or prosecute any alcohol or drug abuse patient.[facility] CenterIn the event this information is protected by the Federal Confidentiality of Alcohol and Drug Abuse Patient Records regulations: The Federal rules restrict any use of the information to criminally investigate or prosecute any alcohol or drug abuse patient.[facility] CenterIn the event this information is protected by the Federal Confidentiality of Alcohol and Drug Abuse Patient Records regulations: The Federal rules restrict any use of the information to criminally investigate or prosecute any alcohol or drug abuse patient.[facility] CenterIn the event this information is protected by the Federal Confidentiality of Alcohol and Drug Abuse Patient Records regulations: The Federal rules restrict any use of the information to criminally investigate or prosecute any alcohol or drug abuse patient.[facility] CenterIn the event this information is protected by the Federal Confidentiality of Alcohol and Drug Abuse Patient Records regulations: The Federal rules restrict any use of the information to criminally investigate or prosecute any alcohol or drug abuse patient.[facility] CenterIn the event this information is protected by the Federal Confidentiality of Alcohol and Drug Abuse Patient Records regulations: The Federal rules restrict any use of the information to criminally investigate or prosecute any alcohol or drug abuse patient.[facility] CenterIn the event this information is protected by the Federal Confidentiality of Alcohol and Drug Abuse Patient Records regulations: The Federal rules restrict any use of the information to criminally investigate or prosecute any alcohol or drug abuse patient.[facility] CenterIn the event this information is protected by the Federal Confidentiality of Alcohol and Drug Abuse Patient Records regulations: The Federal rules restrict any use of the information to criminally investigate or prosecute any alcohol or drug abuse patient.[facility] CenterIn the event this information is protected by the Federal Confidentiality of Alcohol and Drug Abuse Patient Records regulations: The Federal rules restrict any use of the information to criminally investigate or prosecute any alcohol or drug abuse patient.[facility] CenterIn the event this information is protected by the Federal Confidentiality of Alcohol and Drug Abuse Patient Records regulations: The Federal rules restrict any use of the information to criminally investigate or prosecute any alcohol or drug abuse patient.[facility] CenterIn the event this information is protected by the Federal Confidentiality of Alcohol and Drug Abuse Patient Records regulations: The Federal rules restrict any use of the information to criminally investigate or prosecute any alcohol or drug abuse patient.[facility] CenterIn the event this information is protected by the Federal Confidentiality of Alcohol and Drug Abuse Patient Records regulations: The Federal rules restrict any use of the information to criminally investigate or prosecute any alcohol or drug abuse patient.[facility] CenterIn the event this information is protected by the Federal Confidentiality of Alcohol and Drug Abuse Patient Records regulations: The Federal rules restrict any use of the information to criminally investigate or prosecute any alcohol or drug abuse patient.[facility] CenterIn the event this information is protected by the Federal Confidentiality of Alcohol and Drug Abuse Patient Records regulations: The Federal rules restrict any use of the information to criminally investigate or prosecute any alcohol or drug abuse patient.[facility] CenterIn the event this information is protected by the Federal Confidentiality of Alcohol and Drug Abuse Patient Records regulations: The Federal rules restrict any use of the information to criminally investigate or prosecute any alcohol or drug abuse patient.[facility] CenterIn the event this information is protected by the Federal Confidentiality of Alcohol and Drug Abuse Patient Records regulations: The Federal rules restrict any use of the information to criminally investigate or prosecute any alcohol or drug abuse patient.[facility] CenterIn the event this information is protected by the Federal Confidentiality of Alcohol and Drug Abuse Patient Records regulations: The Federal rules restrict any use of the information to criminally investigate or prosecute any alcohol or drug abuse patient.[facility] CenterIn the event this information is protected by the Federal Confidentiality of Alcohol and Drug Abuse Patient Records regulations: The Federal rules restrict any use of the information to criminally investigate or prosecute any alcohol or drug abuse patient.[facility] CenterIn the event this information is protected by the Federal Confidentiality of Alcohol and Drug Abuse Patient Records regulations: The Federal rules restrict any use of the information to criminally investigate or prosecute any alcohol or drug abuse patient.[facility] CenterIn the event this information is protected by the Federal Confidentiality of Alcohol and Drug Abuse Patient Records regulations: The Federal rules restrict any use of the information to criminally investigate or prosecute any alcohol or drug abuse patient.[facility] CenterIn the event this information is protected by the Federal Confidentiality of Alcohol and Drug Abuse Patient Records regulations: The Federal rules restrict any use of the information to criminally investigate or prosecute any alcohol or drug abuse patient.[facility] CenterIn the event this information is protected by the Federal Confidentiality of Alcohol and Drug Abuse Patient Records regulations: The Federal rules restrict any use of the information to criminally investigate or prosecute any alcohol or drug abuse patient.[facility] CenterIn the event this information is protected by the Federal Confidentiality of Alcohol and Drug Abuse Patient Records regulations: The Federal rules restrict any use of the information to criminally investigate or prosecute any alcohol or drug abuse patient.[facility] CenterIn the event this information is protected by the Federal Confidentiality of Alcohol and Drug Abuse Patient Records regulations: The Federal rules restrict any use of the information to criminally investigate or prosecute any alcohol or drug abuse patient.[facility] CenterIn the event this information is protected by the Federal Confidentiality of Alcohol and Drug Abuse Patient Records regulations: The Federal rules restrict any use of the information to criminally investigate or prosecute any alcohol or drug abuse patient.[facility] CenterIn the event this information is protected by the Federal Confidentiality of Alcohol and Drug Abuse Patient Records regulations: The Federal rules restrict any use of the information to criminally investigate or prosecute any alcohol or drug abuse patient.[facility] CenterIn the event this information is protected by the Federal Confidentiality of Alcohol and Drug Abuse Patient Records regulations: The Federal rules restrict any use of the information to criminally investigate or prosecute any alcohol or drug abuse patient.[facility] CenterIn the event this information is protected by the Federal Confidentiality of Alcohol and Drug Abuse Patient Records regulations: The Federal rules restrict any use of the information to criminally investigate or prosecute any alcohol or drug abuse patient.[facility] CenterIn the event this information is protected by the Federal Confidentiality of Alcohol and Drug Abuse Patient Records regulations: The Federal rules restrict any use of the information to criminally investigate or prosecute any alcohol or drug abuse patient.[facility] CenterIn the event this information is protected by the Federal Confidentiality of Alcohol and Drug Abuse Patient Records regulations: The Federal rules restrict any use of the information to criminally investigate or prosecute any alcohol or drug abuse patient.[facility] CenterIn the event this information is protected by the Federal Confidentiality of Alcohol and Drug Abuse Patient Records regulations: The Federal rules restrict any use of the information to criminally investigate or prosecute any alcohol or drug abuse patient.[facility] CenterIn the event this information is protected by the Federal Confidentiality of Alcohol and Drug Abuse Patient Records regulations: The Federal rules restrict any use of the information to criminally investigate or prosecute any alcohol or drug abuse patient.[facility] CenterIn the event this information is protected by the Federal Confidentiality of Alcohol and Drug Abuse Patient Records regulations: The Federal rules restrict any use of the information to criminally investigate or prosecute any alcohol or drug abuse patient.[facility] CenterIn the event this information is protected by the Federal Confidentiality of Alcohol and Drug Abuse Patient Records regulations: The Federal rules restrict any use of the information to criminally investigate or prosecute any alcohol or drug abuse patient.[facility] CenterIn the event this information is protected by the Federal Confidentiality of Alcohol and Drug Abuse Patient Records regulations: The Federal rules restrict any use of the information to criminally investigate or prosecute any alcohol or drug abuse patient.[facility] CenterIn the event this information is protected by the Federal Confidentiality of Alcohol and Drug Abuse Patient Records regulations: The Federal rules restrict any use of the information to criminally investigate or prosecute any alcohol or drug abuse patient.[facility] CenterIn the event this information is protected by the Federal Confidentiality of Alcohol and Drug Abuse Patient Records regulations: The Federal rules restrict any use of the information to criminally investigate or prosecute any alcohol or drug abuse patient.[facility] Reason for Visit (unrecogniz ed section and content) Reason Comments Parkinson's Disease Reason Comments Patient Question Reason Comments Parkinson's Disease Reason Comments Opened In Error Reason Comments Patient Update Reason Comments Refill Request Reason Comments Follow Up Parkinson's Disease Specialty Diagnoses / Procedures Referred By Madelin vo Referred To Contact Diagnoses Parkinson's disease (HCC) Procedures PROVIDER ORDERED FOLLOW UP OFFICE/OUTPATIENT NEW HIGH MDM 60-74 MINUTES Jeannie Carter, GENERAL MANAGER FARM.PEOPLESOFT ADMINISTRATOR [address] [facility] [place], [place] [id number] Referral ID Status Reason Start Date Expiration Date Visits Requested Visits Authorized [id number] Pending Review PCP Requested Referral 03/05/2022 03/05/2023 1 1 Reason Onset Date Comments [facility] - Treatment Referral 08/17/2022 Nuplazid Insurance Authorization 08/17/2022 PA submi ssion pending Reason Onset Date Comments Refill Request 09/01/2022 Nuplazid Reason Onset Date Comments [facility] - Medication Refill 09/23/2022 Nuplazid Reason Onset Date Comments [facility] - Medication Refill 10/21/2022 nuplazid Reason Comments [employer]/Medical Records Request Reason Comments Parkinson's Disease Follow Up Reason Onset Date Comments [facility] - Medication Refill 11/14/2022 Nuplazid 34mg Medication Update 11/14/2022 No PA required Reason Comments Research Reason Onset Date Comments [facility] - Medication Refill 12/09/2022 nuplazid Reason Onset Date Comments [facility] - Medication Refill 02/07/2023 Nuplazid Reason Onset Date Comments [facility] - Medication Refill 03/08/2023 nuplazid Reason Onset Date Comments [facility] - Medication Refill 04/05/2023 nuplazid Reason Onset Date Comments [facility] - Medication Refill 05/12/2023 Nuplazid Reason Onset Date Comments [facility] - Medication Refill 06/09/2023 Nuplazid Reason Onset Date Comments [facility] - Medication Refill 07/14/2023 Nuplazid Reason Onset Date Comments [facility] - Medication Refill 08/18/2023 Nuplazid Reason Comments Pre-Op Visit Specialty Diagnoses / Procedures Referred By Madelin vo Referred To Contact Diagnoses Parkinson's disease, unspecified whether dyskinesia present, unspecified whether manifestations fluctuate Procedures REFER TO PACC - PRE ANESTHESIA CONSULTATION CLINIC OFFICE/OUTPATIENT [facility] 60-74 MINUTES Gregory Crook, PA-C [address] [place] [address] Referral ID Status Reason Start Date Expiration Date Visits Requested Visits Authorized [id number] Pending Review PCP Requested Referral 08/14/2023 08/13/2024 1 1 Reason Onset Date Comments [facility] - Medication Refill 10/16/2023 Nuplazid Reason Onset Date Comments [facility] - Medication Refill 01/15/2024 Nuplazid Reason Onset Date Comments [facility] - Medication Refill 03/19/2024 Nuplazid Reason Onset Date Comments [facility] - Medication Refill 04/16/2024 Nuplazid Reason Onset Date Comments [facility] - Medication Refill 05/20/2024 Nuplazid Reason Onset Date Comments [facility] - Medication Refill 06/13/2024 Nuplazid Reason Onset Date Comments [facility] - Medication Refill 07/12/2024 Nuplazid Reason Onset Date Comments [facility] - Medication Refill 08/16/2024 Nuplazid Reason Onset Date Comments [facility] - Medication Refill 09/19/2024 Nuplazid Reason Comments Med Change Request Reason Onset Date Comments [facility] - Medication Refill 02/09/2024 Nuplazid Reason Onset Date Comments [facility] - Medication Refill 10/22/2024 Nuplazid Reason Onset Date Comments [facility] - Medication Refill 11/25/2024 Nuplazid [facility] - Patient Assistance 11/25/2024 [employer] Approved Reason Onset Date Comments [facility] - Medication Refill 12/24/2024 Nuplazid Reason Onset Date Comments [facility] - Medication Refill 01/23/2025 Nuplazid Reason Onset Date Comments [facility] - Medication Refill 02/24/2025 Nuplazid Reason Onset Date Comments [facility] - Medication Refill 03/24/2025 Nuplazid Reason Comments Follow Up Reason Onset Date Comments [facility] - Medication Refill 04/24/2025 Nuplazid Reason Onset Date Comments [facility] - Medication Refill 05/22/2025 Nuplazid Reason Onset Date Comments [facility] - Medication Refill 06/26/2025 Nuplazid Goals (unrecognized section and content) Goals may be documented in a n alternate section FOR RECORDS PERTAINING TO PATIENTS WHO ARE OR HAVE BEEN ENROLLED IN A CHEMICAL DEPENDENCY/SUBSTANCEABUSE PROGRAM, SOME INFORMATION MAY BE OMITTED. This clinical summary was aggregated from multiple sources. Caution should be exercised in using it in the provision of clinical care. This summary normalizes information from multiple sources, and as a consequence, information in this document may materially change the coding, format and clinical context of patient data. In addition, data may be omitted in some cases. CLINICAL DECISIONS SHOULD BE BASED ON THE PRIMARY CLINICAL RECORDS. [employer] [facility]. provides no warranty or guarantee of the accuracy or completeness of information in this document.
--- NOTE | 2025-10-26 15:25 | RAD_ITS ---
PROCEDURE: CHEST PA AND LATERAL 10/26/2025 REASON FOR EXAM: AMS TECHNIQUE: Procedure Code: RADCXR Modality: DX Procedure: CHEST PA AND LATERAL COMPARISON: 03/29/2024. FINDINGS: Right chest spinal stimulator. The heart is normal in size. Hilar prominence suggestive of vascular congestion. RAD/Chest PA and Lateral IMPRESSION: Probable vascular congestion. [facility]
[2025-10-26 15:55] LABS: Hematocrit 49.1 % (37-47); Hemoglobin 16.6 g/dL (12.0-15.0); Immature Granulocytes Count 0.150 X10^3/uL (0.0-0.0); Mean Corp Hgb Conc 33.8 g/dL (32-36); Mean Corpuscular Volume 95.5 fL (81-99); Mean Platelet Vol. 9.8 fl (6.2-12.0); NRBC Flagged by Analyzer 0 % (0-5); Platelet Count 336 K/mm3 (150-450); RBC Distribution Width CV 12.7 % (11.6-14.6); RBC Distribution Width SD 45.2 fl (35.1-43.9); Red Blood Count 5.14 M/mm3 (4.2-5.4); White Blood Count 12.7 K/mm3 (4.4-11.0)
--- NOTE | 2025-10-26 16:12 | EX.ED.DYSGE1 ---
HPI History of Present Illness Chief Complaint: Alt LOC Narrative Narrative: Patient is a 80-year-old female presenting to the emergency department for altered level of consciousness. 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 at bedside provides history as patient is unable to he states that she is normally allowed to ambulate with help, speak very softly and intermittently and feed herself however her battery and her deep brain stimulator 8 days ago and correlating with that event she has been declining since and has not been able to do the stated above ADLs. states that he is unable to care for her now. Reportedly the stimulator was placed [facility] and it was supposed to be replaced prior to dying however the patient had a small leukocytosis but that the surgeon refused to do surgery on given this finding. There are unknown the cause of her leukocytosis and was placed on amoxicillin. She has been taking this since the . states that she has not had a bowel movement in 7 days. Prior to this she was complaining of abdominal pain. She has not complained of anything since and he does not think that she was able to. She has not had any fevers that he knows of. [facility] Medical History Kidney stone Closed compression fracture of L1 vertebra Fall Mechanical complication of deep brain stimulator Parkinson's disease Hypothyroidism Hypothyroidism Anxiety Depression Osteoporosis Former smoker GERD (gastroesophageal reflux disease) Hypercholesterolemia Parkinson disease Home Medications ?Medication ?Instructions ?Recorded ?Last Taken ?Type atorvastatin 80 mg tablet 80 mg PO DAILY cholesterol 05/17/22 04/01/24 History levothyroxine 50 mcg tablet 50 mcg PO DAILY thyroid 05/17/22 04/02/24 05:50 History pantoprazole 20 mg tablet,delayed 20 mg PO DAILY gerd 05/17/22 04/02/24 09:30 History release rasagiline 1 mg tablet 1 mg PO DAILY parkinsons med 05/17/22 04/02/24 09:30 History ibandronate 150 mg tablet 1 tab PO QMONTH osteoporosis 06/07/22 Unknown History cholecalciferol (vitamin D3) 50 50 mcg PO DAILY replacement 03/28/24 04/02/24 09:30 History mcg (2,000 unit) capsule multivitamin (Daily Multi-Vitamin 1 tab PO DAILY supplement 03/28/24 04/02/24 09:30 History tablet) pimavanserin 34 mg capsule 34 mg PO QHS hallucinations 03/28/24 04/01/24 History (Nuplazid) acetaminophen 500 mg tablet 1,000 mg (2 x 500 mg) PO Q8 #0 tabs 04/12/24 Unknown Rx calcium carbonate 600 mg PO QDAY 09/04/25 Unknown History citalopram 10 mg tablet 10 mg PO QDAY 09/04/25 Unknown History ferrous sulfate 325 mg (65 mg 325 mg PO .COMPLEX 09/04/25 Unknown History iron) tablet (FeroSul) mirabegron 25 mg tablet,extended 25 mg PO QDAY 09/04/25 Unknown History release 24 hr (Myrbetriq) quetiapine 25 mg tablet 25 mg PO QHS 09/04/25 Unknown History trazodone 50 mg tablet 25 mg PO QHS 09/04/25 Unknown History Allergy/AdvReac Type Severity Reaction Status Date / Time lorazepam (From Ativan) AdvReac Intermediate Other Verified 10/26/25 14:34 haloperidol (From Haldol) AdvReac Other Verified 10/26/25 14:34 Surgical History S/P deep brain stimulator placement S/P deep brain stimulator placement Social History household members: spouse current occupational status: retired 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 No acute distress. GCS of 6. HEENT: Head is normocephalic and atraumatic, sinuses nontender, pupils equal round and reactive. Nares are patent. Oropharynx and throat exams normal. Neck: Supple without lymphadenopathy nontender Cardiovascular: Regular rate and rhythm, no murmurs. No rubs or gallops. Normal S1 and S2 Respiratory: Clear to auscultation bilaterally. No wheezes, rales, rhonchi Abdominal: Soft and nontender. Normal bowel sounds. No guarding or rebound. Nonsurgical abdomen Extremities: No tenderness. No bruising. Frequent twitching of extremities. Skin: No rash or redness. Neurological: GCS of 6. The rest of the physical exam is unremarkable Const Vital Signs: 10/26/25 14:34 10/26/25 15:03 10/26/25 15:05 Temperature 97.0 F L Temperature Source Axillary Pulse Rate 72 70 74 Respiratory Rate 18 16 14 Blood Pressure 151/82 H 129/79 H Blood Pressure Mean 105 95 Pulse Ox 94 94 Oxygen Delivery Method Room Air 10/26/25 15:15 10/26/25 15:15 10/26/25 15:30 Temperature Temperature Source Pulse Rate 69 76 Respiratory Rate 11 L Blood Pressure 133/72 H 133/72 H 138/97 H Blood Pressure Mean 89 89 110 Pulse Ox 95 96 Oxygen Delivery Method Room Air 10/26/25 15:30 10/26/25 15:31 10/26/25 15:45 Temperature Temperature Source Pulse Rate 73 Respiratory Rate 13 11 L Blood Pressure 138/97 H 155/79 H Blood Pressure Mean 101 102 Pulse Ox 96 Oxygen Delivery Method 10/26/25 16:00 Temperature Temperature Source Pulse Rate 72 Respiratory Rate 16 Blood Pressure 154/88 H Blood Pressure Mean 106 Pulse Ox 95 Oxygen Delivery Method MDM MDM MDM Narrative Medical decision making narrative: Patient is a 80-year-old female presenting to the emergency department for altered level of consciousness. Patient was seen and examined. Vitals are stable. Patient resting in bed in no acute distress. Fluid bolus started. Differential is broad and includes but is not limited to: mental status change from battery of deep brain stimulator, UTI, pneumonia, intraabdominal pathology including SBO, colitis, diverticulitis, intracranial bleed vs ischemic stroke, less likely meningitis or encephalitis given no fever. No fever or tachycardia, no indication for blood cultures to be drawn. Patient's is at bedside and goals of care discussion was had with him and his daughter over the phone. After discussion, he would like her to be DNR-CCA with no intubation. At this time, she is protecting her airway however she is altered and I discussed this with who again states he does not want her intubated. CBC with mild nonspecific leukocytosis of 12.7 and a hemoglobin above 16.6. BMP with no significant abnormalities. CT of the brain shows no acute intracranial abnormality. CT of the abdomen and pelvis shows probable gastritis with chronic findings nothing acute. Chest x-ray reviewed by myself and shows some vascular congestion which is in agreement with radiology read. EKG show NSR with some flattening of the T waves. No ST elevation or depression. No arrhythmia. Spoke with Dr. Tompkins, se[facility] at [facility] who will be accepting the patient for transfer for likely battery change on Monday. At time of discussion with him viral swab and urinalysis are still pending. Viral swab negative. Urinalysis with no leukocyte esterase or nitrates, does not appear consistent with a urinary tract infection. Discussed findings with the patient and daughter at bedside. Will transfer her up to [facility] for further management at this time. Clinical impression ALOC Leukocytosis Lab Data Attestation: I reviewed the patient's lab results. Labs: Laboratory Results - last 24 hr 10/26/25 10/26/25 10/26/25 14:45 15:45 16:00 WBC 12.7 H RBC 5.14 Hgb 16.6 H Hct 49.1 H MCV 95.5 MCH 32.3 H MCHC 33.8 RDW Std Deviation 45.2 H RDW Coeff of Su 12.7 Plt Count 336 MPV 9.8 Immature Gran % (Auto) 1.200 H Neut % (Auto) 79.0 H Lymph % (Auto) 10.6 L Beckham % (Auto) 8.6 Eos % (Auto) 0.1 Baso % (Auto) 0.5 Absolute Neuts (auto) 10.1 H Absolute Lymphs (auto) 1.35 Nucleated RBC % 0 Sodium Cancelled 144 Potassium Cancelled 3.6 Chloride Cancelled 105 Carbon Dioxide Cancelled 26.6 Anion Gap Cancelled 12 BUN Cancelled 16 Creatinine Cancelled 0.64 L Estim Creat Clear Calc Cancelled 44.08 L Est GFR (MDRD) Non-Af Cancelled 89 BUN/Creatinine Ratio Cancelled 25.4 H Glucose Cancelled 151 H Calcium Cancelled 8.3 Urine Color Yellow Urine Clarity Clear Urine pH 6.0 Ur Specific [place] 1.020 Urine Protein 30 H Urine Glucose (UA) Normal Urine Ketones 15 H Urine Occult Blood 150 H Urine Nitrite Negative Urine Bilirubin Negative Urine Urobilinogen 1 H Ur Leukocyte Esterase Negative Radiography Chest X-Ray - ED: 2 View, Read by ED Physician and No Infiltrates Diagnostic Testing: Clinical Impression(s) from Imaging Studies Brain CT 10/26/25 15:03 IMPRESSION: No acute intracranial abnormality. Reading Location: [facility] [place] Abdomen/Pelvis CT 10/26/25 15:04 IMPRESSION: Probable gastritis. Chronic and ancillary findings as above. Reading Location: [facility] [place] Chest X-Ray 10/26/25 15:25 IMPRESSION: Probable vascular congestion. Reading Location: [facility] [place] Discharge Plan Triage Chief Complaint: Alt LOC ED Provider: Norma Leblanc Dx/Rx/DC Orders Prescriptions: No Action quetiapine 25 mg tablet 25 mg PO QHS trazodone 50 mg tablet 25 mg PO QHS citalopram 10 mg tablet 10 mg PO QDAY calcium carbonate 600 mg calcium (1,500 mg) tablet 600 mg PO QDAY mirabegron [Myrbetriq] 25 mg tablet extended release 24 hr 25 mg PO QDAY ferrous sulfate [FeroSul] 325 mg (65 mg iron) tablet 325 mg PO .COMPLEX Rx Instructions: 325 mg orally 3 times a week; atorvastatin 80 mg Tablet 80 mg PO DAILY pantoprazole 20 mg Tablet,Delayed Release (Dr/Ec) 20 mg PO DAILY levothyroxine 50 mcg Tablet 50 mcg PO DAILY rasagiline 1 mg Tablet 1 mg PO DAILY ibandronate 150 mg tablet 1 tab PO QMONTH Rx Instructions: 1st day of the month Nuplazid 34 mg capsule 34 mg PO QHS cholecalciferol (vitamin D3) 50 mcg (2,000 unit) capsule 50 mcg PO DAILY multivitamin [Daily Multi-Vitamin] Tablet 1 tab PO DAILY acetaminophen 500 mg Tablet 1,000 mg PO Q8 Qty: 0 0RF Primary Care Provider: Crow Perez Referrals: Crow Perez DO [Primary Care Provider, Medical] Print Language: Danish
[2025-10-26 16:14] LABS: Anion Gap 12 (5-15); BUN 16 mg/dL (4-19); BUN/Creat Ratio 25.4 RATIO (10-20); Calcium,Total 8.3 mg/dL (7.6-11.0); Carbon Dioxide 26.6 mmol/L (21.0-32.0); Chloride 105 mmol/L (98-108); Estimated Creatinine Clearance 44.08 ml/min (50-250); Glucose 151 mg/dL (70-99); Potassium 3.6 mmol/L (3.3-5.1)
[2025-10-26 16:25] LABS: Color, Urine Yellow (Yellow); Glucose, Dipstick Normal (Normal); Ketone-Dipstick 15 mg/dl (Negative); Leukocyte Esterase-Dipstick Negative /ul (Negative); Nitrite-Dipstick Negative (Negative); Occult Blood-Urine 150 /ul (Negative); Protein-Dipstick 30 mg/dl (Negative); Specific Gravity, Urine 1.020 (1.002-1.030); Urine Bilirubin Dipstick Negative (Negative)
--- NOTE | 2025-10-26 16:35 | CM.ED ---
Social Work Date of referral: 10/26/25 Reason for referral: Limited support Referred by: Norma Leblanc Patient unable to speak/provide consent to visit however patient's provided consent. Patient will be transferred to [facility] and anticipated surgery date is slotted for Monday. Food Products Tester offered support to patient's who stated he was doing ok and denied any current needs. Patient's stated patient got his cry out this morning and said he's just pushing along and doing everything for his that he can. Food Products Tester started to inquire about needed resource when patient's daughter (presumed) arrived and patient's father started giving update. Food Products Tester asked again if there are any needs patient/patient's has, extra support needed/resources, all of which were denied. Patient's expressed appreciation for visit and talked about how wonderful everyone in the ED has been to him him and patient. Kamilah Echeverria, [employer] SPECIALIST, [employer]
[2025-10-26 16:47] LABS: Red Blood Cells-Urine 5-10 SEEN /hpf (0-5)
[2025-10-26 16:48] LABS: Mucous, Urine 1+ /hpf (<or=2+); Squamous Epithelial Cells - UA 0-5 SEEN /hpf (5-10)
== END 2025-10-26 20:22 | disposition short-term general hospital (02) ==
LOC: ED 15:12
PROVIDERS: Emergency Provider Student in an Organized Health Care Education/Training Program; PCP Family Medicine; Visit Provider Student in an Organized Health Care Education/Training Program
DX: R40.4 Transient alteration of awareness (principal); G20.C Parkinsonism, unspecified; E78.00 Pure hypercholesterolemia, unspecified; Z87.891 Personal history of nicotine dependence; Z79.899 Other long term (current) drug therapy
CPT/HCPCS: 70450; 71046; 74177; 80048; 81001; 82962; 85025; 87631; 93005; 96360; 96361; 99285; P9612; Q9967; A4216